=== PATIENT | female | born 1945 | race Caucasian/White ===

== ENCOUNTER 2020-02-26 21:04 | Inpatient (IN) | payer MEDICARE, SELFPAY ==
[2020-02-26 21:00] VITALS: BP 172/62; BP 191/83; PULSE 70; RESP 18; TEMP 36.6; O2SAT 95; O2SAT 98; BMI 32.9
--- NOTE | 2020-02-26 21:11 | CT_ITS ---
EXAMINATION: CT ANGIOGRAM NECK WITH CONTRAST CT ANGIOGRAM BRAIN WITH CONTRAST CLINICAL INFORMATION: Left mouth droop. COMPARISON: Head CT performed the same day. TECHNIQUE: Test bolus sequences followed by intravenous administration 70 mL of Omnipaque 350. Helical imaging was performed in the axial plane from the thoracic inlet to the skull vertex. Delayed postcontrast imaging of the head was also performed. The data was processed at the cat scan technologist workstation for generation of MIP sequences. Angled MIPs and volume rendered reformatted images were also generated at an offline 3D workstation under concurrent supervision. Stenoses are assessed in accordance with NASCET criteria unless otherwise indicated. This CT examination was performed using dose optimization techniques as appropriate, variously including the following: *Automated exposure control *Adjustment of mA and/or kV according to patient size (this includes techniques or standardized protocols for targeted exams where dose is matched to indication/reason for exam; i.e. extremities or head) *Use of iterative reconstruction technique FINDINGS: BRAIN: [There is mild chronic microangiopathy. There is no intracranial hemorrhage, hydrocephalus, extra-axial surface collection, midline shift, or other herniation pattern. Ortiz to white matter differentiation is diffusely maintained without evidence of an evolved acute territorial infarct. The basilar cisterns are preserved. No significant soft tissue abnormality. No acute osseous abnormality. The paranasal sinuses and the mastoid air cells are well aerated.] CERVICAL SOFT TISSUES AND LUNG APICES: [There is multilevel cervical spondylosis. Imaged upper lungs are clear. No significant soft tissue findings within the neck. NECK CTA: [There is extensive atherosclerotic calcification throughout the aortic arch resulting in a moderate stenosis of the left subclavian artery origin. The left vertebral artery arises from aortic arch. The vertebral arteries are codominant and remain widely patent throughout their cervical course. Right common carotid arteries widely patent. There is atherosclerotic calcification of the right carotid bifurcation without significant stenosis. There is extensive lipid rich atherosclerotic plaque involving the left carotid bulb resulting in a severe greater than 90% stenosis of the proximal left cervical ICA, distal to which the vessel is decreased in caliber compared to the right ICA there does remain patent. BRAIN CTA: One of the distal left MCA sylvian branches is partially occluded. There are no proximal large vessel occlusions and there are no right-sided intracranial arterial occlusions to explain left-sided neurologic deficit. No aneurysm. Timing of the contrast bolus allows assessment of the major dural venous sinuses, which all opacify normally] CT/CT angio head neck stroke IMPRESSION: No acute intracranial findings. There is extensive lipid rich atherosclerotic plaque involving the left carotid bulb resulting in a severe greater than 90% stenosis of the proximal left cervical ICA, distal to which the vessel is decreased in caliber compared to the right ICA there does remain patent. One of the distal left MCA sylvian branches is partially occluded and reconstitutes more distally. There are no proximal large vessel occlusions and there are no right-sided intracranial arterial occlusions to explain left-sided neurologic deficit. Atherosclerotic disease results in a moderate stenosis of the left subclavian artery origin. Findings discussed with Dr. Armas at 9:38 PM on 02/26/2020.
--- NOTE | 2020-02-26 21:11 | CT_ITS ---
EXAMINATION: CT HEAD WITHOUT CONTRAST (STROKE PROTOCOL) CLINICAL INFORMATION: Stroke protocol. . Slurred speech. Drooping mouth COMPARISON: None TECHNIQUE: Contiguous axial imaging was performed from the skull base to vertex without intravenous administration of contrast. This CT examination was performed using dose optimization techniques as appropriate, variously including the following: *Automated exposure control *Adjustment of mA and/or kV according to patient size (this includes techniques or standardized protocols for targeted exams where dose is matched to indication/reason for exam; i.e. extremities or head) *Use of iterative reconstruction technique DLP: 755 mGy-cm FINDINGS: There is no intracranial hemorrhage, hematoma, or extra-axial fluid collection. The ventricles are normal in size. There is no hydrocephalus, edema, or mass effect. The patricia-white matter differentiation appears symmetric. There is no acute infarct or mass lesion. There is age-appropriate atrophy with prominence of the ventricles and the sulci and hypodensity of the periventricular white matter due to chronic small vessel ischemic disease. There are vascular calcifications of the internal carotid arteries bilaterally. No osseous abnormality. The visualized sinuses and middle ears and mastoid air cells show no significant mucosal thickening. There are no air-fluid levels. CT/CT head for stroke IMPRESSION: No acute intracranial pathology. This critical result was discussed with Dr. Armas 02/26/2020, 9:30 PM. It was ascertained that the content and urgency of the report was understood at the time of direct communication.
--- NOTE | 2020-02-26 21:12 | ECG_ITS ---
Test Reason : [facility] STROKE Blood Pressure : / mmHG Vent. 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
--- NOTE | 2020-02-26 21:17 | ED_ITS ---
HPI - General Adult General Chief complaint: Stroke Stated complaint: STROKE ALERT,LKWT 1 HOUR,R FACE DROOP,SPEECH OFF Time Seen by Provider: 02/26/20 21:10 Source: patient Mode of arrival: EMS Limitations: no limitations History of Present Illness HPI narrative: patient comes to the emergency room after having an episode of trouble speaking for 20 minutes and word-finding difficulty. Patient states around 8-8:15pm patient noticed that she had trouble speaking. It was very sudden. Lasted for approximately 20 minutes. It self-resolved. Patient called her son and her son called EMS. Per EMS, patient had trouble difficulty finding words and a thick speech , left-sided mouth drooping, no other neurological deficits. On arrival to the emergency room, most of her symptoms had except the left-sided mouth droop. MD complaint: TIA/ stroke Related Data Home Medications Medication Instructions Recorded Confirmed amlodipine 1 tab PO DAILY 02/26/20 02/26/20 losartan 1 tab PO DAILY 02/26/20 02/26/20 metoprolol tartrate 100 mg PO BID 02/26/20 02/26/20 Allergies Allergy/AdvReac Type Severity Reaction Status Date / Time amoxicillin Allergy Mild RASH Verified 02/26/20 21:35 Review of Systems Review of Systems: Constitutional : No Weight loss, No Fever, No Chills, No Night Sweats, No Fatigue, No Malaise ENT/Mouth : No Hearing loss, No Ear Pain, No Nasal Congestion, No Sinus Pain, No Hoarseness, No sore throat, No Rhinorrhea, No Swallowing Difficulty Eyes: No Eye Pain, No Swelling, No Redness, No Foreign Body, No Discharge, No Vision Changes Cardiovascular : No Chest Pain, No SOB, No Dyspnea on Exertion, No Orthopnea, No Edema, No Palpitations Respiratory : No Cough, No Sputum, No Wheezing, No Smoke Exposure, No Dyspnea Gastrointestinal : No Nausea, No Vomiting, No Diarrhea, No Constipation, No abdominal Pain, No Hematochezia, No Melena Genitourinary : no irregular bleeding, No Dysuria, No Urinary Frequency, No Hematuria, No Urinary Incontinence, No Urgency, No Flank Pain, No Urinary Flow Changes, No Hesitancy Musculoskeletal : No joint pain, No Myalgias, No Joint Swelling Skin : No Skin Lesions, No rash Neuro : No Weakness, No Numbness, patient complaining of slurry speech now, before patient had aphasia and dysarthria, left-sided mouth droop Psych : No Anxiety/Panic, No Depression, No SI/HI/AH/VH, No Social Issues, Heme/Lymph: No Bruising, No Bleeding,No Lymphadenopathy Endocrine : No Polyuria, No Polydipsia, No Temperature Intolerance PMFSH Past Medical History Medical History (Updated 02/26/20 @ 23:19 by Chase Juárez MD) Diabetes Hyperlipidemia Hypertension Surgical History Hx of dilation and curettage Hx of removal of cyst Social History Social History Alcohol intake: never Smoking Status: Current every day smoker Smoked in Last 30 Days: Yes Use of substances other than those prescribed or required for medical reasons: No Advance Directives: No Advance Directives Information Provided: Yes Physical Exam Vital Signs: Vital Signs: Last Vital Signs Temp 97.9 F 02/26/20 21:00 Pulse 61 02/26/20 23:50 Resp 18 02/26/20 23:50 BP 153/39 H 02/26/20 23:50 Pulse Ox 95 02/26/20 23:50 Body Mass Index 32.9 Appearance: Alert. Oriented X3. No acute distress. Eyes: Pupils equal, round and reactive to light. ENT: Pharynx normal. Neck: Normal inspection. Neck supple. No lymph nodes noted. No crepitus CVS: Normal heart rate and rhythm. Pulses normal. Normal S1 and S2 Respiratory: No respiratory distress. Breath sounds normal. No Wheezing. No rales Abdomen: Soft and nontender. No rigidity. No distention. good BS x4 Skin: Skin warm and dry. Normal skin color. Normal skin turgor. Extremities: No lower extremity edema. No lower extremity edema. No Lacerations. No Rash Neuro: Oriented X 3. No motor deficit. No sensory deficit. Moving all extermities. on arrival patient had mild left-sided mouth droop which self resolved now. No slurry speech, no aphasia. On arrival in [facility] score was 1, point given for mild left-sided mouth droop, at this time, 22:00, all symptoms have resolved. NIH Stroke Scale Level of Consciousness: Alert Level of Consciousness Questions: Answers both questions correctly Level of Consciousness Commands: Performs both tasks correctly Best Gaze: Normal Visual: No visual loss Facial Palsy: Minor paralyis Motor Arm (Right): No drift Motor Arm (Left): No drift Motor Leg (Right): No drift Motor Leg (Left): No drift Limb Ataxia: Absent Sensory: Normal Best Language: No aphasia Dysarthia: Normal Extinction and Inattention: No abnormality Score: 1 Course Course Course Narrative: patient's symptoms resolved, no longer having slurry speech, no aphasia, left-sided mouth droop resolved. I discussed the CT scan with our radiologist from [facility], CT scan within normal limits, CTA showed that all intracranial vessels are open, the left carotid artery has 90% stenosis. I discussed the patient and the CT findings with Dr. Yun, recommendations are not to give tPA, patient will likely need a vascular surgery consult to address the carotid artery stenosis Medical Decision Making Lab Data Result diagrams: 02/26/20 21:55 02/26/20 21:55 Labs: Lab Results 02/26/20 02/26/20 02/26/20 Range/Units 21:18 21:29 21:55 WBC 8.8 (4.8-10.8) X10*3/uL RBC 4.77 (4.20-5.50) X10*6/uL Hgb 15.4 (12.0-16.0) g/dl Hct 46.5 (37-47) % MCV 97.5 (80-98) fL MCH 32.3 (27.0-33.0) pg MCHC 33.1 (31.0-35.0) g/dl RDW 13.0 (11.0-16.0) % Plt Count 212 (160-400) X10*3/uL MPV 10.8 (9.4-12.3) fL Immature Gran % (Auto) 0.7 H (0.0-0.4) % Neut % (Auto) 61.3 (45-73) % Lymph % (Auto) 26.8 (20-40) % [place] % (Auto) 8.3 (2-11) % Eos % (Auto) 2.2 (0-4) % Baso % (Auto) 0.7 (0-2) % Lymph # (Auto) 2.4 (1.2-4.9) X10*3/uL [place] # (Auto) 0.7 (0.1-1.2) X10*3/uL Eos # (Auto) 0.2 (0.0-0.4) X10*3/uL Baso # (Auto) 0.1 (0.0-0.2) X10*3/uL Abs Immat Gran (auto) 0.06 H (0.00-0.03) X10*3/uL Absolute Neuts (auto) 5.4 (2.0-8.3) X10*3/uL Absolute Nucleated RBC 0.000 (0.0-0.012) X10*3/uL Nucleated RBC % (auto) 0.0 (0.0-0.2) /100WBC PT (10.8-13.0) SEC Whole Blood PT 11.6 (11.1-13.5) sec INR (0.9-1.1) Whole Blood INR 1.0 (0.9-1.1) APTT (24.1-38.0) SEC Sodium (135-145) mmol/L Potassium (3.3-5.1) mmol/l Chloride (96-108) mmol/L Carbon Dioxide (22-29) mmol/L Anion Gap (12-20) BUN (9-16) mg/dL Creatinine (0.5-1.4) mg/dL Estim Creat Clear Calc Estimated GFR POC Glucose 189 H (60-115) mg/dL Random Glucose (60-115) mg/dL Calcium (8.4-10.2) mg/dL Total Creatine Kinase (26-140) U/L Troponin I High Sens (<3.5-17.0) ng/L COVID-19 ([facility]) (Negative) COVID-19 Clin Com 02/26/20 02/26/20 02/26/20 Range/Units 21:55 21:55 21:55 WBC (4.8-10.8) X10*3/uL RBC (4.20-5.50) X10*6/uL Hgb (12.0-16.0) g/dl Hct (37-47) % MCV (80-98) fL MCH (27.0-33.0) pg MCHC (31.0-35.0) g/dl RDW (11.0-16.0) % Plt Count (160-400) X10*3/uL MPV (9.4-12.3) fL Immature Gran % (Auto) (0.0-0.4) % Neut % (Auto) (45-73) % Lymph % (Auto) (20-40) % [place] % (Auto) (2-11) % Eos % (Auto) (0-4) % Baso % (Auto) (0-2) % Lymph # (Auto) (1.2-4.9) X10*3/uL [place] # (Auto) (0.1-1.2) X10*3/uL Eos # (Auto) (0.0-0.4) X10*3/uL Baso # (Auto) (0.0-0.2) X10*3/uL Abs Immat Gran (auto) (0.00-0.03) X10*3/uL Absolute Neuts (auto) (2.0-8.3) X10*3/uL Absolute Nucleated RBC (0.0-0.012) X10*3/uL Nucleated RBC % (auto) (0.0-0.2) /100WBC PT 10.5 L (10.8-13.0) SEC Whole Blood PT (11.1-13.5) sec INR 0.9 (0.9-1.1) Whole Blood INR (0.9-1.1) APTT 34.5 (24.1-38.0) SEC Sodium 138 (135-145) mmol/L Potassium 4.3 (3.3-5.1) mmol/l Chloride 101 (96-108) mmol/L Carbon Dioxide 25 (22-29) mmol/L Anion Gap 16 (12-20) BUN 21 H (9-16) mg/dL Creatinine 1.21 (0.5-1.4) mg/dL Estim Creat Clear Calc 48.1 Estimated GFR 44 POC Glucose (60-115) mg/dL Random Glucose 201 H (60-115) mg/dL Calcium 9.3 (8.4-10.2) mg/dL Total Creatine Kinase 111 (26-140) U/L Troponin I High Sens < 3.5 (<3.5-17.0) ng/L COVID-19 ([facility]) (Negative) COVID-19 Clin Com 02/26/20 Range/Units 22:38 WBC (4.8-10.8) X10*3/uL RBC (4.20-5.50) X10*6/uL Hgb (12.0-16.0) g/dl Hct (37-47) % MCV (80-98) fL MCH (27.0-33.0) pg MCHC (31.0-35.0) g/dl RDW (11.0-16.0) % Plt Count (160-400) X10*3/uL MPV (9.4-12.3) fL Immature Gran % (Auto) (0.0-0.4) % Neut % (Auto) (45-73) % Lymph % (Auto) (20-40) % [place] % (Auto) (2-11) % Eos % (Auto) (0-4) % Baso % (Auto) (0-2) % Lymph # (Auto) (1.2-4.9) X10*3/uL [place] # (Auto) (0.1-1.2) X10*3/uL Eos # (Auto) (0.0-0.4) X10*3/uL Baso # (Auto) (0.0-0.2) X10*3/uL Abs Immat Gran (auto) (0.00-0.03) X10*3/uL Absolute Neuts (auto) (2.0-8.3) X10*3/uL Absolute Nucleated RBC (0.0-0.012) X10*3/uL Nucleated RBC % (auto) (0.0-0.2) /100WBC PT (10.8-13.0) SEC Whole Blood PT (11.1-13.5) sec INR (0.9-1.1) Whole Blood INR (0.9-1.1) APTT (24.1-38.0) SEC Sodium (135-145) mmol/L Potassium (3.3-5.1) mmol/l Chloride (96-108) mmol/L Carbon Dioxide (22-29) mmol/L Anion Gap (12-20) BUN (9-16) mg/dL Creatinine (0.5-1.4) mg/dL Estim Creat Clear Calc Estimated GFR POC Glucose (60-115) mg/dL Random Glucose (60-115) mg/dL Calcium (8.4-10.2) mg/dL Total Creatine Kinase (26-140) U/L Troponin I High Sens (<3.5-17.0) ng/L COVID-19 ([facility]) Negative (Negative) COVID-19 Clin Com See Note Imaging Data CT scan - head: Radiologist's impression: There is no intracranial hemorrhage, hematoma, or extra-axial fluid collection. The ventricles are normal in size. There is no hydrocephalus, edema, or mass effect. The ortiz-white matter differentiation appears symmetric. There is no acute infarct or mass lesion. There is age-appropriate atrophy with prominence of the ventricles and the sulci and hypodensity of the periventricular white matter due to chronic small vessel ischemic disease. There are vascular calcifications of the internal carotid arteries bilaterally. No osseous abnormality. The visualized sinuses and middle ears and mastoid air cells show no significant mucosal thickening. There are no air-fluid levels. CT/CT head for stroke IMPRESSION: No acute intracranial pathology. CTA head: Radiologist's impression: BRAIN: [There is mild chronic microangiopathy. There is no intracranial hemorrhage, hydrocephalus, extra-axial surface collection, midline shift, or other herniation pattern. Ortiz to white matter differentiation is diffusely maintained without evidence of an evolved acute territorial infarct. The basilar cisterns are preserved. No significant soft tissue abnormality. No acute osseous abnormality. The paranasal sinuses and the mastoid air cells are well aerated.] CERVICAL SOFT TISSUES AND LUNG APICES: [There is multilevel cervical spondylosis. Imaged upper lungs are clear. No significant soft tissue findings within the neck. NECK CTA: [There is extensive atherosclerotic calcification throughout the aortic arch resulting in a moderate stenosis of the left subclavian artery origin. The left vertebral artery arises from aortic arch. The vertebral arteries are codominant and remain widely patent throughout their cervical course. Right common carotid arteries widely patent. There is atherosclerotic calcification of the right carotid bifurcation without significant stenosis. There is extensive lipid rich atherosclerotic plaque involving the left carotid bulb resulting in a severe greater than 90% stenosis of the proximal left cervical ICA, distal to which the vessel is decreased in caliber compared to the right ICA there does remain patent. BRAIN CTA: One of the distal left MCA sylvian branches is partially occluded. There are no proximal large vessel occlusions and there are no right-sided intracranial arterial occlusions to explain left-sided neurologic deficit. No aneurysm. Timing of the contrast bolus allows assessment of the major dural venous sinuses, which all opacify normally] ECG Data Attestation: I personally reviewed and interpreted this ECG as follows: ( normal sinus rhythm, heart rate 67, QTC 409, no ST segment depressions or elevations, no specific wave changes in inferior leads) Discharge Plan Discharge Clinical Impression: Transient cerebral ischemia Qualifiers: Transient cerebral ischemia type: other Qualified Code(s): G45.8 - Other transient cerebral ischemic attacks and related syndromes Patient Disposition: Admitted As Inpatient
[2020-02-26 21:22] LABS: Glucose, Whole Blood 189 mg/dL (60-115)
[2020-02-26] MEDS: iohexoL 350 MG/ML 100 ML INFUS..BTL IV (21:31)
[2020-02-26 21:33] LABS: Prothrombin Time Whole Bld POC 11.6 sec (11.1-13.5)
[2020-02-26 22:10] LABS: Basophils Absolute Auto 0.1 X10*3/uL (0.0-0.2); Basophils Percent Auto 0.7 % (0-2); Eosinophils Absolute Auto 0.2 X10*3/uL (0.0-0.4); Eosinophils Percent Auto 2.2 % (0-4); Hematocrit 46.5 % (37-47); Hemoglobin 15.4 g/dl (12.0-16.0); Imm Gran Abs Auto 0.06 X10*3/uL (0.00-0.03); Imm Gran Pct Auto 0.7 % (0.0-0.4); Lymphocytes Absolute Auto 2.4 X10*3/uL (1.2-4.9); Lymphocytes Percent Auto 26.8 % (20-40); Mean Corpuscular HGB Conc 33.1 g/dl (31.0-35.0); Mean Corpuscular Hemoglobin 32.3 pg (27.0-33.0); Mean Corpuscular Volume 97.5 fL (80-98); Mean Platelet Volume 10.8 fL (9.4-12.3); Monocytes Absolute Auto 0.7 X10*3/uL (0.1-1.2); Monocytes Percent Auto 8.3 % (2-11); Neutrophils Absolute Auto 5.4 X10*3/uL (2.0-8.3); Neutrophils Percent Auto 61.3 % (45-73); Platelet Count 212 X10*3/uL (160-400); Red Blood Count 4.77 X10*6/uL (4.20-5.50); White Blood Count 8.8 X10*3/uL (4.8-10.8)
[2020-02-26 22:11] LABS: MANUAL DIFF FLAG NO
--- NOTE | 2020-02-26 22:18 | MHC.STROKE ---
2050 [facility] EMS PRE-NOTIFIED FOR STROKE ALERT ONSET AT 1999 LEFT DROOP AND WORD FINDING. ARRIVED 2103, STAT CT HEAD AND CTA HEAD/NECK. NO BLEED, CTA WITH 90% STENOSIS LEFT CAROTID REFER TO DETAILED REPORT. DR AUSTIN NOTIFIED. NIHSS = 1. HOLD ON TPA, VASCULAR CONSULT PER DR CASTILLO'S NOTE. SWALLOW SCREEN, CLOSE NEURO-MONITORING RETURN OF SIMILAR STROKE SYMPTOMS, ANTIPLATELET AGENT.
[2020-02-26 22:19] LABS: INTERNATIONAL NORM RATIO 0.9 (0.9-1.1); Prothrombin Time 10.5 SEC (10.8-13.0)
[2020-02-26 22:20] VITALS: BP 145/59; PULSE 69; RESP 16; O2SAT 95
[2020-02-26 22:22] LABS: Partial Thromboplastin Time 34.5 SEC (24.1-38.0)
[2020-02-26 22:23] LABS: Stroke Lab Use COMPLETE
[2020-02-26] MEDS: Aspirin Enteric Coated 325 MG TABLET.DR PO (22:36)
[2020-02-26 22:40] LABS: Anion Gap 16 (12-20); Blood Urea Nitrogen 21 mg/dL (9-16); Calcium 9.3 mg/dL (8.4-10.2); Carbon Dioxide 25 mmol/L (22-29); Chloride 101 mmol/L (96-108); Creatinine Clr Calc Pharmacy 48.1; Estimated Glomerular Filt Rate 44; Glucose Random 201 mg/dL (60-115); Potassium 4.3 mmol/l (3.3-5.1); Sodium 138 mmol/L (135-145)
[2020-02-26 22:42] LABS: Troponin-I High Sensitivity < 3.5 ng/L (<3.5-17.0)
--- NOTE | 2020-02-26 23:10 | PM.IMHP ---
History of Present Illness Date of Service: 02/26/20 Chief Complaint: Unable to speak 74 y/o female with PMHX of HTN and HLP who presented from home due to inability to speak. Per history provided by the patient today around 6 pm, while at home, had an episode where she couldnt speak at all . This symptoms lasted for about 20 minutes and then patient regained the capacity successfully. Patient denies any previous symptoms like this. Denies any chest pain, SOB, nausea, vomiting, weakness or numbness. On presentation to the ED patient is hypertensive 170/60 mmHg, HR of 70 bpm, no evidence of fever. Blood work unremarkable. CT head negative for intracranial pathology but CTA head/neck positive for left ICA 90% stenosis, left MCA and Left subclavian atherosclerosis disease. Case was discussed per ED with Dr Garcia who recommends patient to be admitted for monitoring and Vascular Surgeon to be consulted in the am for possible endarterectomy. Decision for admission given. Patient was seen and examined at the bedside, laying down in bed in no acute distress. ROS as above otherwise negative. Physical exam unremarkable. PMHX: HTN, HLP PSX: none Toxic habits: no hx of alcohol abuse, smoking or IVDA Review of Systems Constitutional: Constitutional: Reports as per [facility] Medical History Diabetes Hyperlipidemia Hypertension Functional capacity: independent ambulation Surgical History Hx of dilation and curettage Hx of removal of cyst Social History Alcohol intake: never Smoking Status: Current every day smoker Smoked in Last 30 Days: Yes Use of substances other than those prescribed or required for medical reasons: No Advance Directives: No Advance Directives Information Provided: Yes Meds Allergies Allergy/AdvReac Type Severity Reaction Status Date / Time amoxicillin Allergy Mild RASH Verified 02/26/20 21:35 Home Medications Medication Instructions Recorded Confirmed Type amlodipine 1 tab PO DAILY 02/26/20 02/26/20 History losartan 1 tab PO DAILY 02/26/20 02/26/20 History metoprolol tartrate 100 mg PO BID 02/26/20 02/26/20 History Physical Exam Vital Signs and Narrative: Vital Signs: Last Vital Signs Temp 97.9 F 02/26/20 21:00 Pulse 69 02/26/20 22:20 Resp 16 02/26/20 22:20 BP 145/59 H 02/26/20 22:20 Pulse Ox 95 02/26/20 22:20 Body Mass Index 32.9 Const: General: cooperative, comfortable and no acute distress Orientation/consciousness: oriented to person, oriented to place and oriented to time HENMT: Head: Yes normal to inspection Eyes: General: appearance normal, both eyes and all related structures Neck: Yes normal visual inspection Chest: Chest palpation & inspection: normal inspection of the chest Resp: Effort & Inspection: normal respiratory effort Auscultation: clear to auscultation bilaterally Cardio: Jugular venous distension: no JVD Rate: regular rate Rhythm: regular rhythm Heart sounds: S1 normal heart sound present and S2 normal heart sound present GI: Inspection: Yes normal to inspection Skin: General skin exam: no rashes or lesions noted Neuro: General: oriented to person, oriented to place and oriented to time Cognition (Neuro): normal cognition Gait exam (Neuro): Normal gait present Results Labs CBC and Chem 7: 02/26/20 21:55 02/26/20 21:55 Labs: Laboratory Results - last 24 hr 02/26/20 02/26/20 02/26/20 21:18 21:29 21:55 MCV 97.5 MCH 32.3 MCHC 33.1 RDW 13.0 Plt Count 212 MPV 10.8 Immature Gran % (Auto) 0.7 H Neut % (Auto) 61.3 Lymph % (Auto) 26.8 [place] % (Auto) 8.3 Eos % (Auto) 2.2 Baso % (Auto) 0.7 Lymph # (Auto) 2.4 [place] # (Auto) 0.7 Eos # (Auto) 0.2 Baso # (Auto) 0.1 Abs Immat Gran (auto) 0.06 H Absolute Neuts (auto) 5.4 Absolute Nucleated RBC 0.000 Nucleated RBC % (auto) 0.0 PT Whole Blood PT 11.6 INR Whole Blood INR 1.0 APTT Anion Gap Estim Creat Clear Calc Estimated GFR POC Glucose 189 H Random Glucose Calcium Total Creatine Kinase Troponin I High Sens 02/26/20 02/26/20 02/26/20 21:55 21:55 21:55 MCV MCH MCHC RDW Plt Count MPV Immature Gran % (Auto) Neut % (Auto) Lymph % (Auto) [place] % (Auto) Eos % (Auto) Baso % (Auto) Lymph # (Auto) [place] # (Auto) Eos # (Auto) Baso # (Auto) Abs Immat Gran (auto) Absolute Neuts (auto) Absolute Nucleated RBC Nucleated RBC % (auto) PT 10.5 L Whole Blood PT INR 0.9 Whole Blood INR APTT 34.5 Anion Gap 16 Estim Creat Clear Calc 48.1 Estimated GFR 44 POC Glucose Random Glucose 201 H Calcium 9.3 Total Creatine Kinase 111 Troponin I High Sens < 3.5 Imaging Radiologist's Impressions: Impressions Head CT 02/26/20 21:11 IMPRESSION: No acute intracranial pathology. This critical result was discussed with Dr. Armas 02/26/2020, 9:30 PM. It was ascertained that the content and urgency of the report was understood at the time of direct communication. Head/Neck CTA 02/26/20 21:11 IMPRESSION: No acute intracranial findings. There is extensive lipid rich atherosclerotic plaque involving the left carotid bulb resulting in a severe greater than 90% stenosis of the proximal left cervical ICA, distal to which the vessel is decreased in caliber compared to the right ICA there does remain patent. One of the distal left MCA sylvian branches is partially occluded and reconstitutes more distally. There are no proximal large vessel occlusions and there are no right-sided intracranial arterial occlusions to explain left-sided neurologic deficit. Atherosclerotic disease results in a moderate stenosis of the left subclavian artery origin. Findings discussed with Dr. Armas at 9:38 PM on 02/26/2020. Assessment and Plan (1) Transient cerebral ischemia: Qualifiers: Transient cerebral ischemia type: other Qualified Code(s): G45.8 - Other transient cerebral ischemic attacks and related syndromes Status: Acute Neuro checks IMC / lunchroom monitor Follow up 2D echo start with aspirin 81 mg tablet daily start with atorvastatin 40 mg tablet HS Neurology consult in the am Vascular surgery in the am (2) Broca's aphasia: Status: Acute as above (3) Hypertension: Status: Acute continue with home BP meds (4) Hyperlipidemia: Status: Inactive as above
[2020-02-26 23:13] LABS: COVID-19 Test Negative (Negative); IDNOW Serial# 9DD0AD1C
[2020-02-26 23:50] VITALS: BP 153/39; PULSE 61; RESP 18; O2SAT 95
[2020-02-26] MEDS: Heparin Sodium,Porcine 5,000 UNIT/ML VIAL 5000 UNIT SUBCUT (23:52)
--- NOTE | 2020-02-26 23:57 | PC.NURSE ---
CALLED TO FLOOR TO GIVE REPORT. NURSE WILL CALL BACK
[2020-02-27] VITALS (9 sets, daily range): BP systolic 140–166; BP diastolic 47–71; PULSE 52–68; RESP 17–20; TEMP 35.5–36.9; O2SAT 91–97
--- NOTE | 2020-02-27 00:15 | PC.NURSE ---
NURSE TO NURSE GIVEN TO CLAY HOOPER ON IMC.
[2020-02-27 02:06] LABS: Glucose, Whole Blood 257 mg/dL (60-115)
[2020-02-27 06:32] LABS: MANUAL DIFF FLAG NO
[2020-02-27 07:04] LABS: Basophils Absolute Auto 0.1 X10*3/uL (0.0-0.2); Basophils Percent Auto 0.7 % (0-2); Eosinophils Absolute Auto 0.1 X10*3/uL (0.0-0.4); Eosinophils Percent Auto 1.6 % (0-4); Hematocrit 45.7 % (37-47); Hemoglobin 15.1 g/dl (12.0-16.0); Imm Gran Abs Auto 0.03 X10*3/uL (0.00-0.03); Imm Gran Pct Auto 0.3 % (0.0-0.4); Lymphocytes Absolute Auto 2.8 X10*3/uL (1.2-4.9); Lymphocytes Percent Auto 32.2 % (20-40); Mean Corpuscular Hemoglobin 32.2 pg (27.0-33.0); Mean Corpuscular Volume 97.4 fL (80-98); Mean Platelet Volume 11.2 fL (9.4-12.3); Monocytes Absolute Auto 0.7 X10*3/uL (0.1-1.2); Monocytes Percent Auto 7.8 % (2-11); Neutrophils Absolute Auto 5.1 X10*3/uL (2.0-8.3); Neutrophils Percent Auto 57.4 % (45-73); Platelet Count 206 X10*3/uL (160-400); Red Blood Count 4.69 X10*6/uL (4.20-5.50); White Blood Count 8.8 X10*3/uL (4.8-10.8)
[2020-02-27 07:21] LABS: Glucose, Whole Blood 124 mg/dL (60-115)
[2020-02-27 07:40] LABS: Anion Gap 15 (12-20); Blood Urea Nitrogen 17 mg/dL (9-16); Carbon Dioxide 22 mmol/L (22-29); Chloride 107 mmol/L (96-108); Cholesterol 304 mg/dL; Creatinine Clr Calc Pharmacy 64.7; Estimated Glomerular Filt Rate > 60; Glucose Random 123 mg/dL (60-115); HDL Cholesterol 35 mg/dL; LDL Cholesterol Calculated 194 mg/dl; Potassium 4.4 mmol/l (3.3-5.1); Sodium 140 mmol/L (135-145); Triglycerides 376 mg/dL
[2020-02-27] MEDS: Heparin Sodium,Porcine 5,000 UNIT/ML VIAL 5000 UNIT SUBCUT ×2 (07:40→14:37)
[2020-02-27 08:09] LABS: Calcium 8.8 mg/dL (8.4-10.2)
[2020-02-27] MEDS: Aspirin Enteric Coated 81 MG TABLET.DR PO (08:46)
[2020-02-27 12:17] LABS: Glucose, Whole Blood 158 mg/dL (60-115)
[2020-02-27 12:57] LABS: Estimated Average Glucose 183 mg/dL
--- NOTE | 2020-02-27 14:05 | PM.NEUROCN ---
History of Present Illness Data of Consult Service Date: 02/27/20 Primary Care Provider: Unknown Physician HPI Reason for consult: Sudden loss of inability to speak lasting 20 minutes This is a 74-year-old woman with a history of hypertension, hyperlipidemia and diet-controlled diabetes who came in with sudden onset of inability to speak where she could not get any words out initially, had difficulty finding words and slurring. The symptoms gradually cleared about 20 minutes later and since then she has been fine. She had no visual disturbance dizziness headache or lateralized weakness or numbness. There is no previous history of stroke or TIA. She has several stroke risk factors. She has hyperlipidemia but does not take any medication for it because it cause some side effects in the past. She does not take aspirin at home. She controls her diabetes with diet and her last A1c was 7. Her blood pressure requires 3 medications for control. Review of Systems Eyes: Eyes: Reports no additional eye complaints ENT: Reports system reviewed and no additional complaints, except as documented and Reports Normal hearing present Cardiovascular: Cardiovascular: Reports no additional cardiovascular complaints Respiratory: Respiratory: Reports no additional respiratory complaints Gastrointestinal: Gastrointestinal: Reports no additional gastrointestinal complaints Musculoskeletal: Musculoskeletal: Reports no additional musculoskeletal complaints Integumentary/Breasts: Skin/Breast: Reports system reviewed and no additional complaints, except as docu Neurologic: Reports as per HPI and Reports Normal hearing present Psychiatric: Psychiatric: Reports as per HPI Endocrine: Endocrine: Reports no additional endocrine complaints Hematologic/Lymphatic: Hematologic/Lymphatic: Reports no additional hematologic/lymphatic complaints Allergic/Immunologic: Allergic/Immunologic: Reports no additional allergic/immunologic complaints [facility] Past Medical History Medical History (Updated 02/27/20 @ 14:09 by Abigail Yun MD) Diabetes Hyperlipidemia Hypertension Functional capacity: independent ambulation Surgical History Surgical History Hx of dilation and curettage Hx of removal of cyst Social History Social History Household Members: Spouse Housing: House Do you presently have visiting nurse or other home services: No Alcohol intake: never Smoking Status: Current every day smoker Tobacco Type: Cigarette Years Smoked: 61 Smoked in Last 30 Days: Yes Patient Interested in Nicotine Replacement: No Patient Given Instructions on How to Stop Smoking: No Second Hand Smoke Exposure: Yes Use of substances other than those prescribed or required for medical reasons: No Currently Displaying Signs/Symptoms of Drug Intoxication Withdrawal: No Have you been hit, kicked, punched, or otherwise hurt by someone within the past year? If so, by whom?: No Do you feel safe in your current relationship?: Yes Is there a partner from a previous relationship who is making you feel unsafe now?: No Are you made to feel afraid or neglected: No Advance Directives: No Advance Directives Information Provided: Yes Do you have thoughts of harming others: None Do you have a plan to hurt others: No Plan Recently lost weight without trying: No Meds Allergies Allergy/AdvReac Type Severity Reaction Status Date / Time amoxicillin Allergy Mild RASH Verified 02/26/20 21:35 Home Medications Medication Instructions Recorded Confirmed Type amlodipine 10 mg PO DAILY 02/26/20 02/27/20 History losartan 50 mg PO DAILY 02/26/20 02/27/20 History metoprolol tartrate 100 mg PO BID 02/26/20 02/26/20 History Physical Exam Vital Signs: Vital Signs: Last Vital Signs Temp 97.9 F 02/27/20 11:28 Pulse 55 02/27/20 11:28 Resp 17 02/27/20 11:28 BP 149/65 H 02/27/20 11:28 Pulse Ox 95 02/27/20 11:28 Body Mass Index 32.9 Const: General: cooperative, comfortable, no acute distress, well developed, alert and awake Nutritional Appearance: well nourished Orientation/consciousness: oriented to person, oriented to place and oriented to time Limitations: no limitations HENMT: Head: Yes normal to inspection, Yes normocephalic and Yes atraumatic Ears: hearing grossly normal bilaterally General nose exam: Normal external nose present Face and sinus: Yes normal facial exam Mouth: Normal oral and palatal mucosa present Eyes: General: appearance normal, both eyes and all related structures Visual Zuniga: normal visual zuniga by confrontation Alignment and Position: alignment normal Periorbital: periorbital findings normal Eyelids: Yes eyelids normal Conjunctivae: conjunctivae normal Sclerae: sclerae normal Corneas: corneas normal Pupils: Equal, round and reactive pupils present and Pupil accommodation reflex normal EOM: EOMs intact bilaterally Direct Ophthalmoscopy: normal light reflex Neck: Neck: Yes normal visual inspection, Yes full ROM and Yes no meningeal signs Thyroid: Thyroid normal Carotids: normal carotid upstroke and bounding pulses Chest: Chest palpation & inspection: normal inspection of the chest Resp: Effort & Inspection: normal respiratory effort Auscultation: clear to auscultation bilaterally Cardio: Rate: regular rate Rhythm: regular rhythm Heart sounds: S1 normal heart sound present and S2 normal heart sound present Peripheral pulses: Peripheral pulses 2+ throughout GI: Inspection: Yes normal to inspection Percussion: Yes normal to percussion Auscultation: normal bowel sounds Rectal Exam - Female: deferred Back/Spine/Pelvis: Cervical Spine: normal cervical lordosis and cervical ROM normal Thoracic/Lumbar Spine: thoracic and lumbar spine normal to inspection Skin: General skin exam: no rashes or lesions noted Neuro: General: oriented to person, oriented to place, oriented to time, gait normal, tone normal, moves all extremities, Normal light touch and pain sensation, no meningeal signs, no focal motor deficits, CN's II-XI intact bilaterally, normal sensation to monofilament and deep tendon reflexes 2+ bilaterally Cranial nerves: Yes CN's II-XII intact bilaterally, Yes Equal, round and reactive pupils present, Yes Bilaterally intact EOM present, Yes Nystagmus not present, Yes Normal facial strength present, Yes Midline tongue present, Yes Normal gag reflex present, Yes Symmetric palate elevation present, Yes Normal hearing present and Yes Ability to bilaterally rotate head present Cognition (Neuro): normal cognition Speech: Other speech findings present (Neuro) Gait exam (Neuro): Normal gait present Motor exam (neuro): 5/5 motor strength present throughout, Pronator motor function not present, no tremor noted, no asterixis, Motor fasciculations not present, Normal motor muscle tone present throughout and Motor abnormalities not present Sensory Exam: Bilaterally intact graphesthesia Deep tendon reflexes (DTR's): Right triceps reflex intensity grade: 2+, Left triceps reflex intensity grade: 2+, Rt Biceps (C5, C6): 2+, Left biceps reflex intensity grade: 2+, Right brachioradialis reflex intensity grade: 2+, Left brachioradialis reflex intensity grade: 2+, Right patellar reflex intensity grade: 2+, Left patellar reflex intensity grade: 2+, Right ankle reflex intensity grade: 2+ and Left ankle reflex intensity grade: 2+ Plantar Reflex Responses: downgoing: right, left and bilateral Coordination: [id number] test normal, [id number] test normal, tandem gait normal and Romberg test negative Pupils: Normal pupillary reactivity/response: bilateral Extrem: General: Yes normal to inspection, Yes normal exam except as noted and Yes no pedal edema Psych: Appearance: grossly normal Mental Status: mental status grossly normal Speech and movement: Normal speech and movement present and Clear speech present Affect: normal affect Attitude: cooperative Thought process: Normal thought process present Results Labs CBC & Chem 7: 02/27/20 05:35 02/27/20 05:35 Labs: Short CBC 02/26/20 02/27/20 Range/Units 21:55 05:35 WBC 8.8 8.8 (4.8-10.8) X10*3/uL Hgb 15.4 15.1 (12.0-16.0) g/dl Hct 46.5 45.7 (37-47) % Plt Count 212 206 (160-400) X10*3/uL BMP 02/26/20 02/27/20 21:55 05:35 Sodium 138 140 Potassium 4.3 4.4 Chloride 101 107 Carbon Dioxide 25 22 BUN 21 H 17 H Creatinine 1.21 0.90 Calcium 9.3 8.8 Cardiac Enzymes 02/26/20 Range/Units 21:55 Total Creatine Kinase 111 (26-140) U/L Assessment and Plan (1) Broca's aphasia: Problem details: Aphasia resolved in 20 minutes Status: Acute Secondary to TIA from left internal carotid stenosis 90% (2) Transient cerebral ischemia: Qualifiers: Transient cerebral ischemia type: other Qualified Code(s): G45.8 - Other transient cerebral ischemic attacks and related syndromes Problem details: Left hemisphere TIA from 90% stenosis of left internal carotid artery Status: Acute Start aspirin 81 mg a day. Vascular surgery consultation for left carotid endarterectomy. Do not be too aggressive with blood pressure control. Avoid dropping systolic blood pressure below 140
--- NOTE | 2020-02-27 16:12 | MHC.CM.PN ---
Pt reports she lives at home wiht her and is independent with self care. Pt reports she does have a walker at home and has no services. Pt reports her PCP is [facility] in [facility]. Pt reports she has a HCP. Currently DC plan is TBD pending PT/OT. Likely home. Pt will self arrange transport
[2020-02-27 16:41] LABS: Glucose, Whole Blood 147 mg/dL (60-115)
--- NOTE | 2020-02-27 17:13 | P.PNIM_ITS ---
Subjective Subjective Date of Service: 02/27/20 Interval History: seen and examined denies any neuro deficits d/w her at length about her diagnosis which include htn, hld and diabetes -- all of which are chronic and long standing. she reports she only take bp meds but not statins or diabetic meds as she has researched them and knows the side effects. ROS General - no fevers or chills Cardiovascular - no chest pain Respiratory - no shortness of breath or cough Abdominal- no abdominal pain, nausea, vomiting, diarrhea Physical Exam Vital Signs: Vital Signs: Last Vital Signs Temp 98.1 F 02/27/20 15:24 Pulse 54 02/27/20 15:24 Resp 18 02/27/20 15:24 BP 145/66 H 02/27/20 15:24 Pulse Ox 95 02/27/20 15:24 Body Mass Index 32.9 Const: Other: General - no acute distress, appears comfortable Cardiovascular - regular rate and rhythm, S1-S2 Lungs - normal respiratory effort, clear to auscultation bilaterally, no wheezing Abdomen - soft, nontender, no rebound or guarding Extremities - no edema bilaterally Neuro - awake and alert, no focal deficits Objective Data Current Medications Generic Name Dose Route Start Last Admin Trade Name Freq PRN Reason Stop Dose Admin Aspirin 81 mg 02/27/20 09:00 02/27/20 08:46 Aspirin Enteric Coated 81 Mg Tablet. PO 81 mg DAILY [facility] Administration Atorvastatin Calcium 80 mg 02/27/20 21:00 Atorvastatin Calcium 80 Mg Tablet PO BEDTIME [facility] Heparin Sodium (Porcine) 5,000 unit 02/26/20 23:30 02/27/20 14:37 Heparin Sodium,Porcine 5,000 Unit/Ml Vial SUBCUT 5,000 unit Q8H [facility] Administration Insulin Human Lispro 0 unit 02/27/20 16:30 02/27/20 16:42 Insulin Lispro 100 Unit/Ml 3 Ml Vial SUBCUT Not Given QIDACHS [facility] Protocol Labs CBC & Chem 7: 02/27/20 05:35 02/27/20 05:35 Assessment and Plan (1) Transient cerebral ischemia: Status: Acute Assessment and Plan: This is a 74-year-old female with multiple risk factors for CVA including diabetes, hyperlipidemia, hypertension who presents to the hospital with word- finding difficulty and slurred speech which resolved on its own while in the emergency room. Her workup in the ED showed a 90% stenosis of the left internal carotid artery the likely cause of her symptoms. 1. TIA Due to left carotid stenosis, 90% Neurology input appreciated Vascular surgery consulted aspirin, statin recommended but the patient is unsure if she will take it, blood pressure control: for the time being discontinue her antihypertensives and allow blood pressure to remain over 140 per neurology recommendations, check A1c - 8. again patient does not want treatment for this. 2. HTN hold antihypertensvies allow for SBP > 140 3. HLD statin if patient will take it 4. DM sliding scale, if patient will allow doesnt want PO dm meds either Full Code DVT pptx, subcut. heparin
[2020-02-27 20:34] LABS: Glucose, Whole Blood 123 mg/dL (60-115)
[2020-02-27] MEDS: Atorvastatin Calcium 80 MG TABLET PO (20:59)
[2020-02-28] MEDS: Heparin Sodium,Porcine 5,000 UNIT/ML VIAL 5000 UNIT SUBCUT ×4 (00:44→23:34)
[2020-02-28 03:30] VITALS: BP 142/66; PULSE 53; RESP 18; TEMP 36.3; O2SAT 90
[2020-02-28 06:56] VITALS: BP 137/63; PULSE 52; RESP 19; TEMP 36.6; O2SAT 92
[2020-02-28 07:15] LABS: Glucose, Whole Blood 157 mg/dL (60-115)
[2020-02-28] MEDS: Aspirin Enteric Coated 81 MG TABLET.DR PO (08:00)
--- NOTE | 2020-02-28 09:41 | PM.EVENT ---
Event Note Date of Service: 02/28/20 Event Note: Full consult to follow. If true TIA , carotid stenosis > 90%. Must be done this admission. Plavix added.
[2020-02-28] MEDS: Clopidogrel Bisulfate 75 MG TABLET PO (10:20)
--- NOTE | 2020-02-28 10:50 | P.PNIM_ITS ---
Subjective Subjective Date of Service: 02/28/20 Interval History: seen and examined this AM no repeat neurological symptoms agreeable on statins + bp meds, wants to control her DM with diet control ROS General - no fevers or chills Cardiovascular - no chest pain Respiratory - no shortness of breath or cough Abdominal- no abdominal pain, nausea, vomiting, diarrhea Neuro -- no repeated symptoms Physical Exam Vital Signs: Vital Signs: Last Vital Signs Temp 98 F 02/28/20 06:56 Pulse 52 02/28/20 06:56 Resp 19 02/28/20 06:56 BP 137/63 02/28/20 06:56 Pulse Ox 92 02/28/20 06:56 Body Mass Index 32.9 Const: Other: General - no acute distress, appears comfortable Cardiovascular - regular rate and rhythm, S1-S2 Lungs - normal respiratory effort, clear to auscultation bilaterally, no wheezing Abdomen - soft, nontender, no rebound or guarding Extremities - no edema bilaterally Neuro - awake and alert, no focal deficits Objective Data Current Medications Generic Name Dose Route Start Last Admin Trade Name Bee PRN Reason Stop Dose Admin Aspirin 81 mg 02/27/20 09:00 02/28/20 08:00 Aspirin Enteric Coated 81 Mg Tablet. PO 81 mg DAILY [facility] Administration Atorvastatin Calcium 80 mg 02/27/20 21:00 02/27/20 20:59 Atorvastatin Calcium 80 Mg Tablet PO 80 mg BEDTIME [facility] Administration Clopidogrel Bisulfate 75 mg 02/28/20 10:05 02/28/20 10:20 Clopidogrel Bisulfate 75 Mg Tablet PO 75 mg DAILY [facility] Administration Heparin Sodium (Porcine) 5,000 unit 02/26/20 23:30 02/28/20 07:59 Heparin Sodium,Porcine 5,000 Unit/Ml Vial SUBCUT 5,000 unit Q8H [facility] Administration Insulin Human Lispro 0 unit 02/27/20 16:30 02/28/20 07:54 Insulin Lispro 100 Unit/Ml 3 Ml Vial SUBCUT Not Given QIDACHS [facility] Protocol Labs CBC & Chem 7: 02/27/20 05:35 02/27/20 05:35 Assessment and Plan (1) Transient cerebral ischemia: Status: Acute Assessment and Plan: This is a 74-year-old female with multiple risk factors for CVA including diabetes, hyperlipidemia, hypertension who presents to the hospital with word- finding difficulty and slurred speech which resolved on its own while in the emergency room. Her workup in the ED showed a 90% stenosis of the left internal carotid artery the likely cause of her symptoms. 1. TIA Due to left carotid stenosis, 90% Neurology input appreciated Vascular surgery consulted - likely plan for intervention this admission contiue asa, plavix added; continue statin; keep off BP Meds -- neurology recs to keep SBP > 140 Echo tomorrow Cardiology consult requested per vascular for pre-op eval 2. HTN hold antihypertensvies allow for SBP > 140 3. HLD lipitor 4. DM continue with POC will d/c inuslin as patient is flat out refusing to take it, wants to try diet control. also does not want any PO 5. Obesity weight loss Full Code DVT pptx, subcut. heparin
[2020-02-28 11:07] VITALS: BP 141/72; PULSE 62; RESP 18; TEMP 36.6; O2SAT 95
[2020-02-28 11:29] LABS: Glucose, Whole Blood 148 mg/dL (60-115)
[2020-02-28 15:35] VITALS: BP 175/81; PULSE 61; RESP 18; TEMP 36.6; O2SAT 95
[2020-02-28 16:23] LABS: Glucose, Whole Blood 129 mg/dL (60-115)
[2020-02-28 19:13] VITALS: BP 168/72; PULSE 67; RESP 18; TEMP 37.1; O2SAT 93
[2020-02-28] MEDS: Atorvastatin Calcium 80 MG TABLET PO (20:26)
[2020-02-28 20:47] LABS: Glucose, Whole Blood 136 mg/dL (60-115)
[2020-02-29] VITALS (7 sets, daily range): BP systolic 142–177; BP diastolic 65–79; PULSE 58–97; RESP 16–20; TEMP 36.5–37.1; O2SAT 93–96; BMI 32.9
--- NOTE | 2020-02-29 | CA_ITS ---
Acquisition Time: 2020-03-01 10:46:45 Total Exercise Time: 00:04:37 Test Indications: CAROTID STENOSIS Medications: SEE CHART Protocol: CHRIS Max HR: 139 BPM 93% of Pred: 148 BPM Max BP: 184/078 mmHG Max Work Load: 4.6 METS Exercise MIBI using Modified Chris Protocol. Total of 4 min 37 sec. METS 4.6, MHR up to 139. 93 % MAPHR. Pt was SOB at the end of the exercise, reports to be feeling dizzy. Normotensive response to exercise. EKG without any arrhythmias, no ischemic changes seen during exercise or in recovery. Lot of artifacts seen during exercise. Nuclear images to follow. Test reviewed with Dr. Stone Referred By: David Stone Overread By: Tan Proctor
--- NOTE | 2020-02-29 | MR_ITS ---
MRI OF THE BRAIN WITHOUT IV CONTRAST INDICATION: CVA. Aphasia. COMPARISON: Head CT and CTA head and neck 02/26/2020. TECHNIQUE: Multiplanar multisequence MR imaging of the brain was obtained without IV contrast. FINDINGS: Multiple small acute infarcts within the left frontal, parietal, and temporal lobes located within the left MCA territory. There is no mass effect and there is no hemorrhagic transformation. There is a small focus of susceptibility signal within the left frontal lobe on image 18 of series 6, likely a small focus of chronic hemosiderin staining. T2 signal changes within the supratentorial white matter and central main, most like a chronic microangiopathy. There is no hydrocephalus, extra-axial surface collection, or herniation. The major flow voids at the skull base are preserved. There is no intracranial hemorrhage on the gradient recalled echo acquisition. The midline structures are normal. The cerebellar tonsils are normally positioned. The cerebellum and brainstem are normal. The craniocervical junction is normal. Osseous marrow signal intensity is homogenous. The visualized soft tissues are unremarkable. MR/MR head/brain wo con IMPRESSION: - Multiple small acute infarcts within the left frontal, parietal, and temporal lobes located within the left MCA territory. There is no mass effect and there is no hemorrhagic transformation. - There is a small focus of susceptibility signal within the left frontal lobe on image 18 of series 6, likely a small focus of chronic hemosiderin staining.
--- NOTE | 2020-02-29 00:28 | CA_ITS ---
Transthoracic Echocardiogram Patient (Last, First, Middle): iDa Dong E Gender: Female Date of : 1945 Age: 74 Procedure Date: 02/29/2020 Procedure Type: Transthoracic Echocardiogram [place] [facility] [place]: 167.64 cm Weight: 92.08 kg BSA: 2.01 m2 Heart Rate: bpm BP: 149 / 68 mmHg Recreation Program Coordinator: Referring MD: KARINA Symptoms: Stroke Study Quality: Good ECG Rhythm: Sinus Conclusions: - The left ventricular systolic function is hyperdynamic. The visually estimated ejection fraction is >70%. - No obvious valvular pathology seen on this study. Findings Left Ventricle Normal left ventricular cavity size. There is moderately increased left ventricular wall thickness. The left ventricular systolic function is hyperdynamic. The visually estimated ejection fraction is >70%. There is no evidence of regional wall motion abnormalities. There is no dynamic left ventricular outflow tract obstruction. E/E prime ratio is between 8 and 15 consistent with indeterminate filling pressures. Evidence suggests grade I (mild) diastolic dysfunction. Possibly some intraventricular gradient but not clearly measured. Right Ventricle Normal right ventricular cavity size and systolic function. Atria Both atria are normal in size. Aortic Valve The aortic valve was not well visualized. The peak aortic velocity is 2.38 m/s with a calculated peak gradient of 23 mmHg. The mean gradient is 11 mmHg. The aortic valve area is 2.08 cm2. There is no aortic valve regurgitation. No significant aortic stenosis. Mitral Valve The mitral valve appears normal. There is trace mitral valve regurgitation. There is no mitral valve stenosis. Pulmonic Valve The pulmonic valve was not well visualized. Tricuspid Valve There is trace tricuspid valve regurgitation. The pulmonary artery systolic pressure is normal. Great Vessels The aortic annulus, sinuses of valsalva, and asc aorta are normal in size. Venous The inferior vena cava is normal in size and collapses greater than 50% with inspiration. Pericardium/Pleural There is no evidence of pericardial effusion. Prior Study Comparison No prior study available for comparison. Recommendations, Care & Conclusions No obvious valvular pathology seen on this study. Measurements 2D Linear Measurements IVSd: 1.42 0.6-0.9/0.6-1.0 cm LVIDd: 3.34 3.9-5.3/4.2-5.9 cm LVIDd Index: 1.66 2.4-3.2/2.2-3.1 cm/m2 LVIDs: 2.16 2.0-3.6 cm LVPWd: 1.39 0.7-1.1 cm Ao Root: 2.80 2.1-3.5 cm LA Diam: 3.50 2.7-3.8/3.0-4.0 cm LAIDs Index: 1.74 1.5-2.3 cm/m2 LV Mass: 203.16 67-162/88-224 g LV Mass Index: 101.08 43-95/49-115 g/m2 LVOT Diam: 1.90 3.0+(-)1.3 cm Mitral Valve MV VTI: 0.26 MV Pk Frankie: 1.23 MV Mn Frankie: 0.75 MV Pk Grad: 6.00 MV Mn Grad: 3.00 MV Pk E: 0.81 MV PK A: 1.34 MV Decel Time: 123.00 E/A: 0.60 E'Lateral: 10.40 E'Medial: 6.48 E/E' Med: 12.50 E/E' Lat: 7.80 PHT: 36.00 MVA PHT: 6.11 MVA Continuity: 3.62 Decel Robertson: 6.57 Aortic Valve AoV Pk Frankie: 2.38 AoV Mn Frankie: 1.54 AoV VTI: 0.46 AoV Pk Grad: 23.00 Aov Mn Grad: 11.00 AMARILIS Cont.VTI: 2.08 LVOT LVOT Pk Frankie: 1.36 LVOT Mn Frankie: 1.02 LVOT VTI: 0.33 LVOT Pk Grad: 7.00 LVOT Mn Grad: 5.00 LVOT Diam: 1.90 LVOT Area: 2.84 Diastolic Function MV Pk E: 0.81 MV Pk A: 1.34 E/A: 0.60 E'Medial: 6.48 E/E' Med: 12.50 E' Laterial: 10.40 E/E' Lat: 7.80 Tricuspid Valve TR Pk Frankie: 1.94 TR Pk Grad: 15.00 RA Press: 3.00 RVSP: 18.00 Great Vessels Aorta Ao Root-2D: 2.80 2.0-3.7 cm Pulmonary Valve PV Pk Frankie: 1.33 Peak PV Grad: 7.00 Updated in Other Vendor System with Status of Final David Stone MD electronically signed on 02/29/2020 11:50:28 AM with status of Final
[2020-02-29] MEDS: Heparin Sodium,Porcine 5,000 UNIT/ML VIAL 5000 UNIT SUBCUT ×3 (07:13→22:05)
[2020-02-29 07:42] LABS: Glucose, Whole Blood 142 mg/dL (60-115)
[2020-02-29] MEDS: Aspirin Enteric Coated 81 MG TABLET.DR PO (07:44)
[2020-02-29] MEDS: Clopidogrel Bisulfate 75 MG TABLET PO (07:44)
--- NOTE | 2020-02-29 10:00 | P.CONCA_ITS ---
History of Present Illness History of Present Illness Date of Service: 02/29/20 Consult reason: pre-op evaluation Chief complaint: STROKE ALERT/TIA Narrative: This is a cardiology consultation for preoperative evaluation for a carotid endarterectomy. Patient does not have any known cardiac issues. She denies any history of coronary disease myocardial infarction or cardiomyopathy or any other cardiac concerns. She came because of difficulty speaking. Has be en diagnosed with left internal carotid stenosis and hence potentially plan for carotid endarterectomy. From the cardiac standpoint, she states that she has never had any anginal-type symptoms or shortness of breath or other cardiac type symptoms. She is fairly active although because sciatica she does not do a lot. Within her limitations, no clear cardiac symptoms at all. She states that she does have elevated sugars but does not take anything for diabetes. On medications for hypertension. She is on statins for high cholesterol. She is a smoker. She also has a family history of cardiac disease in both her parents. Review of Systems Review of Systems: Yes all other systems are reviewed and are negative ENT: Reports Normal hearing present Cardiovascular: Cardiovascular: Reports as per HPI, Reports no additional cardiovascular complaints, Denies chest pain, Denies syncope, Denies irregular heart rhythm, Denies leg edema and Denies dyspnea Respiratory: Respiratory: Denies dyspnea Neurologic: Reports as per HPI, Reports Normal hearing present and Denies syncope PMFSH Past Medical History Medical History (Updated 02/29/20 @ 10:06 by David Stone MD) Diabetes Hyperlipidemia Hypertension Functional capacity: independent ambulation Family History Pertinent family history: Positive family history of coronary disease in both her parents. Surgical History Surgical History Hx of dilation and curettage Hx of removal of cyst Social History Social History Household Members: Spouse Housing: House Do you presently have visiting nurse or other home services: No Alcohol intake: never Smoking Status: Current every day smoker Tobacco Type: Cigarette Years Smoked: 61 Smoked in Last 30 Days: Yes Patient Interested in Nicotine Replacement: No Patient Given Instructions on How to Stop Smoking: No Second Hand Smoke Exposure: Yes Use of substances other than those prescribed or required for medical reasons: No Currently Displaying Signs/Symptoms of Drug Intoxication Withdrawal: No Have you been hit, kicked, punched, or otherwise hurt by someone within the past year? If so, by whom?: No Do you feel safe in your current relationship?: Yes Is there a partner from a previous relationship who is making you feel unsafe now?: No Are you made to feel afraid or neglected: No Advance Directives: No Advance Directives Information Provided: Yes Do you have thoughts of harming others: None Do you have a plan to hurt others: No Plan Recently lost weight without trying: No service: No Current occupational status: retired Meds Allergies Allergy/AdvReac Type Severity Reaction Status Date / Time amoxicillin Allergy Mild RASH Verified 02/26/20 21:35 Home Medications Medication Instructions Recorded Confirmed Type amlodipine 10 mg PO DAILY 02/26/20 02/27/20 History losartan 50 mg PO DAILY 02/26/20 02/27/20 History metoprolol tartrate 100 mg PO BID 02/26/20 02/26/20 History Physical Exam Vital Signs: Vital Signs: Last Vital Signs Temp 97.7 F 02/29/20 07:22 Pulse 58 02/29/20 07:22 Resp 18 02/29/20 07:22 BP 142/65 H 02/29/20 07:22 Pulse Ox 93 02/29/20 07:22 Body Mass Index 32.9 Const: General: cooperative, comfortable and no acute distress Orientation/consciousness: patient oriented x3 HENMT: Other: Unremarkable Neck: Neck: Yes normal visual inspection Chest: Chest palpation & inspection: normal inspection of the chest Resp: Auscultation: clear to auscultation bilaterally, no crackles and no wheezes Cardio: Jugular venous distension: no JVD Palpation: normal PMI Heart sounds: S1 normal heart sound present, S2 abnormal, no gallops, Murmur heart sound present (soft s2; 3/6 DEYSI aortic area; bilateral carotid bruit) and no rubs GI: Palpation (GI): Soft to palpation Back/Spine/Pelvis: Other: unremarkable Skin: General skin exam: no rashes or lesions noted Neuro: General: patient oriented x3 Cranial nerves: Yes Normal hearing present Extrem: General: Yes no clubbing, cyanosis or edema Psych: Mental Status: mental status grossly normal Results Labs and Meds Result diagrams: 02/27/20 05:35 02/27/20 05:35 Lab results: Laboratory Results - last 24 hr 02/28/20 02/28/20 02/28/20 11:07 15:36 20:34 POC Glucose 148 H 129 H 136 H 02/29/20 07:33 POC Glucose 142 H EKG Interpretation Telemetry: sinus rhythm EKG Comments: EKG with sinus rhythm at 67/Min. Possible old inferior infarct and cannot exclude old anterior infarct. Similar to prior from 2007. Assessment and Plan (1) Transient cerebral ischemia: Qualifiers: Transient cerebral ischemia type: other Qualified Code(s): G45.8 - Other transient cerebral ischemic attacks and related syndromes Status: Acute (2) Preoperative cardiovascular examination: Status: Acute (3) Nonrheumatic aortic (valve) stenosis: Status: Acute (4) Arteriosclerotic vascular disease: Status: Acute Her CTA shows extensive atherosclerotic calcification throughout the aortic arch; moderate stenosis of the left subclavian origin; severe stenosis of the left proximal cervical internal carotid artery. CT head shows no acute intracranial pathology. Clinically, she has murmur of aortic stenosis. She has an echocardiogram to assess this further. Otherwise, she has very high pretest probability for obstructive CAD and hence may require cardiac catheterization. We will follow up with you once the echocardiogram is reviewed.
--- NOTE | 2020-02-29 10:02 | CONS_ITS ---
DATE OF SERVICE: 02/29/2020 REASON FOR CONSULTATION: High-grade carotid stenosis. HISTORY OF PRESENT ILLNESS: A 74-year-old female, who I had seen yesterday, presented with inability to speak. She had a 20-minute episode and regained capacity. She was subsequently worked up and noted to have high-grade left carotid stenosis. She was seen by Neurology, who believed this was a true TIA. She now presents to us for vascular evaluation. PAST MEDICAL HISTORY: Significant for hypertension, hyperlipidemia, and she does report high anxiety levels as well. PAST SURGICAL HISTORY: None significant. MEDICATIONS: Medication list was reviewed per nursing MAR. ALLERGIES: SHE HAS ALLERGIES TO AMOXICILLIN. SOCIAL HISTORY: Nondrinker. 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 FAMILY HISTORY: No history of advanced coronary artery disease or peripheral vascular disease. REVIEW OF SYSTEMS: 13-point review was performed. At the time of my examination, she denied any headache, dizziness, nausea, vomiting, diarrhea, or shortness of breath. No difficulty speaking. No lateralizing signs or symptoms. Rest of 13-point review was essentially negative. PHYSICAL EXAMINATION: GENERAL: Afebrile. VITAL SIGNS: Stable. HEAD AND NECK: Demonstrates no bruits. CHEST: Moving air bilaterally. CARDIAC: Positive S1 and S2. ABDOMEN: Soft. EXTREMITIES: Upper extremities have good radial and ulnar pulses. Lower extremities are warm with good capillary refill. NEUROLOGICAL: II through XII grossly intact. PSYCH: Mood and affect appear within normal limits. Appropriate insight to the disease process. IMAGING: Head CT on 02/25 was no acute intracranial pathology. CTA of the neck demonstrates the left side was 90% and right side had no significant disease. IMPRESSION: High-grade carotid stenosis with transient ischemic attack. She was started on dual anti-platelet agent. We have ordered an echo and are awaiting cardiac risk stratification. Based on that, we will proceed with carotid endarterectomy. This was discussed in detail with the patient, in particular risk factor modification and the surgery. Depending on cardiac risk stratification, we will proceed. Ideally, would like to do the procedure this admission. Thank you for allowing us to assist in her care. If there are any questions or concerns, please do not hesitate to contact us. MD SRI Geiger/ALVARADO / [phone]
[2020-02-29 11:22] LABS: Glucose, Whole Blood 184 mg/dL (60-115)
--- NOTE | 2020-02-29 11:57 | P.PNIM_ITS ---
Subjective Subjective Date of Service: 02/29/20 Interval History: no complaints Cardiovascular Cardiovascular: Reports no additional cardiovascular complaints Respiratory Respiratory: Reports no additional respiratory complaints Physical Exam Vital Signs: Vital Signs: Last Vital Signs Temp 98.0 F 02/29/20 11:49 Pulse 77 02/29/20 11:49 Resp 20 02/29/20 11:49 BP 160/70 H 02/29/20 11:49 Pulse Ox 95 02/29/20 11:49 Body Mass Index 32.9 General: AO X 3, no acute distress Resp: CTA bilateral CVS: S1,S2,RRR GI: soft, non tender, non distended Neuro: motor grossly intact Psych: appropriate affect Objective Data Current Medications Generic Name Dose Route Start Last Admin Trade Name Leobardoq PRN Reason Stop Dose Admin Aspirin 81 mg 02/27/20 09:00 02/29/20 07:44 Aspirin Enteric Coated 81 Mg Tablet.Dr PO 81 mg DAILY ROBERT Administration Atorvastatin Calcium 80 mg 02/27/20 21:00 02/28/20 20:26 Atorvastatin Calcium 80 Mg Tablet PO 80 mg BEDTIME ROBERT Administration Clopidogrel Bisulfate 75 mg 02/28/20 10:05 02/29/20 07:44 Clopidogrel Bisulfate 75 Mg Tablet PO 75 mg DAILY ROBERT Administration Heparin Sodium (Porcine) 5,000 unit 02/26/20 23:30 02/29/20 07:13 Heparin Sodium,Porcine 5,000 Unit/Ml Vial SUBCUT 5,000 unit Q8H ROBERT Administration Labs CBC & Chem 7: 02/27/20 05:35 02/27/20 05:35 Assessment and Plan (1) Transient cerebral ischemia: Status: Acute Assessment and Plan: This is a 74-year-old female with multiple risk factors for CVA including diabetes, hyperlipidemia, hypertension who presents to the hospital with word- finding difficulty and slurred speech which resolved on its own while in the emergency room. Her workup in the ED showed a 90% stenosis of the left internal carotid artery the likely cause of her symptoms. TIA Due to left carotid stenosis, 90% Neurology input appreciated Vascular surgery consulted - likely plan for intervention this admission contiue asa, plavix added; continue statin; keep off BP Meds -- neurology recs to keep SBP > 140 Echo, stress test preop Cardiology following HTN hold antihypertensvies allow for SBP > 140 HLD lipitor DM continue with POC will d/c inuslin as patient is flat out refusing to take it, wants to try diet control. also does not want any PO Obesity weight loss Full Code DVT pptx, subcut. heparin
--- NOTE | 2020-02-29 12:01 | MHC.CM.PN ---
Patient will likely have a left CEA while admitted r/t 90% blockage. Patient independent, discharge plan is home no services. CM will continue to follow for discharge needs.
--- NOTE | 2020-02-29 12:06 | NM_ITS ---
Exercise Myocardial perfusion study Indication: Evaluate for myocardial ischemia Technique: The patient was brought in for an exercise perfusion study on 03/01/2020. Patient performed exercise as per Moris protocol and was injected 25 mCi of sestamibi was given intravenously one target HR was achieved. Images were obtained using the SPECT gamma camera interlaced with the gating device. Images were obtained in supine position. Resting perfusion study was performed on 02/29/2020. Patient was administered 25 mCi of sestamibi intravenously at rest. Images were then obtained in supine position. Images obtained with and without CT attenuation. Total DLP 102 mGy-cm. Images were processed with the software and compared side to side in short axis, horizontal long axis and vertical long axis views. Findings: The stress perfusion study showed non attenuated images show mildly to moderately reduced uptake in the inferolateral wall of the LV myocardium. The main of the LV myocardium is normally mildly reduced uptake in the lateral and moderately reduced uptake in the apex of the LV myocardium. The gated study shows normal LV systolic function with calculated LVEF of greater than 70 %. LV cavity is normal in size. The gated study shows normal systolic wall thickening and contraction of all segments. There is no transient ischemic dilation. Resting study shows non attenuated images show normal uptake of radiotracer in all segments of LV myocardium. Attenuation corrected images also show normal uptake of radiotracer in all segments of LV myocardium.. Gating at rest reveals systolic wall motion with ejection fraction at greater than 70 %. The findings are consistent with mild to moderate intensity inferolateral wall ischemia. NM/NM león perf SPECT rest & str Impression: 1. Inferolateral ischemia 2. Gated LVEF is greater than 70% 3. Transient ischemic dilatation not present Stress EKG is negative for ischemia
--- NOTE | 2020-02-29 13:46 | MHC.STROKE ---
Addendum entered by Cyndi Garcia RN 03/02/20 10:40: IT WAS DECIDED BY VASCULAR SURGERY TO DUE TO CEA ON 03/14/20. THE PATIENT AND I DISCUSSED MONITORING HER BLOOD PRESSURE AT HOME, CALLING 911 IF STROKE SYMPTOMS RETURN. SHE LIVES IWTH HER AND SHE WILL DISCUSS THE DISCHARGE INSTRUCTIONS WITH HIM. SHE NEEDS TO TAKE ALL MEDICATIONS PRESCRIBED. SHE IS MOTIVATED TO GET BETTER. WE DISCUSSED STOPPING SMOKING AND CONTROLLING HER RISK FACTORS INCLUDING DIET AND EXERCISE. I INFORMED HER SHE CAN CALL ME WITH ANY QUESTIONS AND MY NUMBER IS ON THE BACK OF THE STROKE BOOKLET. Addendum entered by Cyndi Garcia RN 03/01/20 13:48: I REINFORCED STROKE EDUCATION TODAY, WE REVIEWED MRI IMAGES OF HER EMBOLIC STROKES AND LOCATION. I ANSWERED ALL OF HER QUESTIONS. I DID SPEAK WITH DR. AUSTIN AND REVIEWED THE MRI RESULTS WITH HIM. PLEASE SEE HIS NOTE FROM TODAY. I ALSO RELAYED THIS INFORMATION TO DR LOVE. Original Note: I MET WITH PATIENT TODAY AND WE DISCUSSED STROKE EDUCATION AND HER PLAN OF CARE. I PROVIDED SMOKING CESSATION EDUCATION. SHE ROLLS HER OWN CIGARETTES AND SAID THEY DO NOT HAVE CHEMICALS IN THEM SO SHE DOESN'T FEEL LIKE SHE WILL GO THROUGH WITHDRAWAL. SHE ALSO IS REFUSING A NICOTINE PATCH. SHE PREVIOUSLY WAS ON A STATIN BUT DID NOT STAY ON IT BECAUSE IT DIDN'T AGREE WITH ME AND AI DID RESEARCH ON IT AND WASN'T SURE IF I NEEDED IT . SHE IS AGREEABLE TO THE ATORVASTATIN SHE IS ON CURRENTLY BECAUSE THINGS HAVE CHANGED . SHE EXPERIENCED A SUDDEN ONSET OF WORD FINDING ON 02/26/20 THAT RESOLVED. IN SPEAKING WITH HER TODAY SHE WAS HAVING SOME SLIGHT WORD FINDING ISSUES THE LONGER I SPOKE WITH HER. RECALLING CERTAIN NAMES. I DID REPORT THIS TO DR AUSTIN AND HE IS RECOMMENDING A MRI BRAIN W/O CONTRAST. I DID RELAY THIS TO DR LOVE AND HE ORDERED IT. I DID THE MRI SCREENING FORM AND EXPLAINED THE TEST TO HER. SHE IS ALSO GETTING THE INJECTION FOR THE CARDIAC NUCLEAR SCAN AND WE WILL TRY TO COORDINATE THESE TESTS BACK TO BACK. I REVIEWED THE STROKE EDUCATION BOOKLET, HER CURRENT MEDICATIONS AND EXPLAINED WHY SHE WAS ON EACH MEDICATION. I GAVE HER A HANDOUT ON CAROTID ENDARTERECTOMY AND SHE SAID DR MENDEZ DID EXPLAIN THE PROCEDURE TO HER. SHE DID SAY SHE WAS LESS ANXIOUS AFTER UNDERSTANDING EVERYTHING AND I ENCOURAGED HER TO ASK QUESTIONS. I WILL CONTINUE TO FOLLOW.
[2020-02-29 16:00] LABS: Glucose, Whole Blood 122 mg/dL (60-115)
[2020-02-29] MEDS: 0.9 % Sodium Chloride 1,000 ML 100 ML IVCONT (16:40)
[2020-02-29] MEDS: Atorvastatin Calcium 80 MG TABLET PO (22:05)
[2020-02-29 22:16] LABS: Glucose, Whole Blood 131 mg/dL (60-115)
[2020-03-01 04:00] VITALS: BP 149/62; PULSE 70; RESP 18; TEMP 37; O2SAT 96
[2020-03-01 07:48] VITALS: BP 159/64; PULSE 71; RESP 18; TEMP 36.2; O2SAT 91
[2020-03-01 08:03] LABS: Glucose, Whole Blood 119 mg/dL (60-115)
[2020-03-01] MEDS: Heparin Sodium,Porcine 5,000 UNIT/ML VIAL 5000 UNIT SUBCUT ×2 (08:26→15:55)
[2020-03-01] MEDS: Clopidogrel Bisulfate 75 MG TABLET PO (08:26)
[2020-03-01] MEDS: Aspirin Enteric Coated 81 MG TABLET.DR PO (08:26)
--- NOTE | 2020-03-01 09:18 | HO.VASCPN ---
Subjective Subjective Date of Service: 03/01/20 Patient reports: no new complaints and feels better Interval history: Patient seen and examined. No events overnight. Has had echo performed. In addition had a confirmatory MRI. She is for routine hospital follow-up. Physical Exam Vital Signs: Vital Signs: Last Vital Signs Temp 97.1 F 03/01/20 07:48 Pulse 71 03/01/20 07:48 Resp 18 03/01/20 07:48 BP 159/64 H 03/01/20 07:48 Pulse Ox 91 L 03/01/20 07:48 Body Mass Index 32.9 Const: General: cooperative, healthy appearing and no acute distress Orientation/consciousness: oriented to person, oriented to place and oriented to time HENMT: Head: Yes normal to inspection Neck: Carotids: no bruits Chest: Chest palpation & inspection: normal inspection of the chest Resp: Effort & Inspection: normal respiratory effort and able to speak in complete sentences Auscultation: clear to auscultation bilaterally Cardio: Rate: regular rate Heart sounds: S1 normal heart sound present and S2 normal heart sound present GI: Inspection: Yes normal to inspection Skin: General skin exam: no rashes or lesions noted Wounds: no wounds Neuro: General: oriented to person, oriented to place, oriented to time and CN's II-XI intact bilaterally Extrem: General: Yes normal to inspection, Yes full ROM and Yes no clubbing, cyanosis or edema Psych: Appearance: grossly normal and well kempt Speech and movement: Normal speech and movement present Affect: normal affect Progress Note: A&P Assessment and plan (1) Stroke due to stenosis of left carotid artery: Status: Acute Assessment and Plan: Patient has no residual neurologic deficit from stroke event. Confirmatory MRI did D fine an acute stroke. Echo appeared to be fairly reasonable with an ejection fraction of roughly 70%. We will await stress testing today. She is currently being maintained on a statin aspirin and Plavix. Will follow up after stress testing. Thank you for allowing me to participate in her care. Fall Risk Details Current Medications: Current Medications Generic Name Dose Route Start Last Admin Trade Name Freq PRN Reason Stop Dose Admin Aspirin 81 mg 02/27/20 09:00 03/01/20 08:26 Aspirin Enteric Coated 81 Mg Tablet. PO 81 mg DAILY ROBERT Administration Atorvastatin Calcium 80 mg 02/27/20 21:00 02/29/20 22:05 Atorvastatin Calcium 80 Mg Tablet PO 80 mg BEDTIME ROBERT Administration Clopidogrel Bisulfate 75 mg 02/28/20 10:05 03/01/20 08:26 Clopidogrel Bisulfate 75 Mg Tablet PO 75 mg DAILY ROBERT Administration Heparin Sodium (Porcine) 5,000 unit 02/26/20 23:30 03/01/20 08:26 Heparin Sodium,Porcine 5,000 Unit/Ml Vial SUBCUT 5,000 unit Q8H ROBERT Administration Time Spent With Patient Time: Total time spent is greater than 50% in coordination of care (as documented) at patient's floor/unit and/or counseling patient: Time with patient: 25 - 35 minutes
--- NOTE | 2020-03-01 09:45 | P.PNNE_ITS ---
Subjective Subjective Date of Service: 03/01/20 Interval History: Minimal word finding difficulties Physical Exam Vital Signs: Vital Signs: Last Vital Signs Temp 97.1 F 03/01/20 07:48 Pulse 71 03/01/20 07:48 Resp 18 03/01/20 07:48 BP 159/64 H 03/01/20 07:48 Pulse Ox 91 L 03/01/20 07:48 Body Mass Index 32.9 Const: General: cooperative, comfortable, no acute distress, well developed, alert and awake Nutritional Appearance: well nourished Orientation/consciousness: oriented to person, oriented to place and oriented to time Limitations: no limitations HENMT: Head: Yes normal to inspection, Yes normocephalic and Yes atraumatic Ears: hearing grossly normal bilaterally General nose exam: Normal external nose present Face and sinus: Yes normal facial exam Mouth: Normal oral and palatal mucosa present Eyes: General: appearance normal, both eyes and all related structures Visual Guillory: normal visual guillory by confrontation Alignment and Position: alignment normal Periorbital: periorbital findings normal Eyelids: Yes eyelids normal Conjunctivae: conjunctivae normal Sclerae: sclerae normal Corneas: corneas normal Pupils: Equal, round and reactive pupils present and Pupil accommodation reflex normal EOM: EOMs intact bilaterally Direct Ophthalmoscopy: normal light reflex Neck: Neck: Yes normal visual inspection, Yes full ROM and Yes no meningeal signs Thyroid: Thyroid normal Carotids: normal carotid upstroke and bounding pulses Chest: Chest palpation & inspection: normal inspection of the chest Resp: Effort & Inspection: normal respiratory effort Auscultation: clear to auscultation bilaterally Cardio: Rate: regular rate Rhythm: regular rhythm Heart sounds: S1 normal heart sound present and S2 normal heart sound present Peripheral puls es: Peripheral pulses 2+ throughout GI: Inspection: Yes normal to inspection Percussion: Yes normal to percussion Auscultation: normal bowel sounds Rectal Exam - Female: deferred Back/Spine/Pelvis: Cervical Spine: normal cervical lordosis and cervical ROM normal Thoracic/Lumbar Spine: thoracic and lumbar spine normal to inspection Skin: General skin exam: no rashes or lesions noted Neuro: General: oriented to person, oriented to place, oriented to time, gait normal, tone normal, moves all extremities, Normal light touch and pain sensation, no meningeal signs, no focal motor deficits, CN's II-XI intact bilaterally, normal sensation to monofilament and deep tendon reflexes 2+ bilaterally Cranial nerves: Yes CN's II-XII intact bilaterally, Yes Equal, round and reactive pupils present, Yes Bilaterally intact EOM present, Yes Nystagmus not present, Yes Normal facial strength present, Yes Midline tongue present, Yes Normal gag reflex present, Yes Symmetric palate elevation present, Yes Normal hearing present and Yes Ability to bilaterally rotate head present Cognition (Neuro): normal cognition Speech: Other speech findings present (Neuro) Gait exam (Neuro): Normal gait present Motor exam (neuro): 5/5 motor strength present throughout, Pronator motor function not present, no tremor noted, no asterixis, Motor fasciculations not present, Normal motor muscle tone present throughout and Motor abnormalities not present Sensory Exam: Bilaterally intact graphesthesia Deep tendon reflexes (DTR's): Right triceps reflex intensity grade: 2+, Left triceps reflex intensity grade: 2+, Rt Biceps (C5, C6): 2+, Left biceps reflex intensity grade: 2+, Right brachioradialis reflex intensity grade: 2+, Left brachioradialis reflex intensity grade: 2+, Right patellar reflex intensity grade: 2+, Left patellar reflex intensity grade: 2+, Right ankle reflex intensity grade: 2+ and Left ankle reflex intensity grade: 2+ Plantar Reflex Responses: downgoing: right, left and bilateral Coordination: [id number] test normal, [id number] test normal, tandem gait normal and Romberg test negative Pupils: Normal pupillary reactivity/response: bilateral Extrem: General: Yes normal to inspection, Yes normal exam except as noted and Yes no pedal edema Psych: Appearance: grossly normal Mental Status: mental status grossly normal Speech and movement: Normal speech and movement present and Clear speech present Affect: normal affect Attitude: cooperative Thought process: Normal thought process present Objective Data Labs CBC & Chem 7: 02/27/20 05:35 02/27/20 05:35 Labs: Laboratory Results - last 24 hr 02/29/20 02/29/20 02/29/20 11:11 15:54 21:28 POC Glucose 184 H 122 H 131 H 03/01/20 07:50 POC Glucose 119 H Progress Note: A&P Assessment and plan (1) Stroke due to stenosis of left carotid artery: Status: Acute Assessment and Plan: MRI brain reviewed. There are 3-4 small punctate embolic infarcts in the left parietal cortex c/w embolism from the carotid stenosis. This should not affect proceeding with left carotid endarterectomy. Continue dual anti-platelet therapy till then and keep systolic BP above 160 preferably Fall Risk Details Current Medications: Current Medications Generic Name Dose Route Start Last Admin Trade Name Leobardoq PRN Reason Stop Dose Admin Aspirin 81 mg 02/27/20 09:00 03/01/20 08:26 Aspirin Enteric Coated 81 Mg Tablet.Dr PO 81 mg DAILY ROBERT Administration Atorvastatin Calcium 80 mg 02/27/20 21:00 02/29/20 22:05 Atorvastatin Calcium 80 Mg Tablet PO 80 mg BEDTIME ROBERT Administration Clopidogrel Bisulfate 75 mg 02/28/20 10:05 03/01/20 08:26 Clopidogrel Bisulfate 75 Mg Tablet PO 75 mg DAILY ROBERT Administration Heparin Sodium (Porcine) 5,000 unit 02/26/20 23:30 03/01/20 08:26 Heparin Sodium,Porcine 5,000 Unit/Ml Vial SUBCUT 5,000 unit Q8H ROBERT Administration Time Spent With Patient Time: Total time spent is greater than 50% in coordination of care (as documented) at patient's floor/unit and/or counseling patient: Time with patient: 15 - 24 minutes
--- NOTE | 2020-03-01 10:05 | PM.PNCARD ---
Subjective Subjective Date of Service: 03/01/20 Interval history: She states that she feels okay. She denies any chest pain or any other cardiac symptoms at this time. Review of Systems Review of Systems Constitutional : No Weight loss, No Fever, No Chills, No Night Sweats, No Fatigue, No Malaise ENT/Mouth : No Hearing loss, No Ear Pain, No Nasal Congestion, No Sinus Pain, No Hoarseness, No sore throat, No Rhinorrhea, No Swallowing Difficulty Eyes: No Eye Pain, No Swelling, No Redness, No Foreign Body, No Discharge, No Vision Changes Cardiovascular : No Chest Pain, No SOB, No Dyspnea on Exertion, No Orthopnea, No Edema, No Palpitations Respiratory : No Cough, No Sputum, No Wheezing, No Smoke Exposure, No Dyspnea Gastrointestinal : No Nausea, No Vomiting, No Diarrhea, No Constipation, No abdominal Pain, No Hematochezia, No Melena Genitourinary : no irregular bleeding, No Dysuria, No Urinary Frequency, No Hematuria, No Urinary Incontinence, No Urgency, No Flank Pain, No Urinary Flow Changes, No Hesitancy Musculoskeletal : No joint pain, No Myalgias, No Joint Swelling Skin : No Skin Lesions, No rash Neuro : No Weakness, No Numbness, patient complaining of slurry speech now, before patient had aphasia and dysarthria, left-sided mouth droop Psych : No Anxiety/Panic, No Depression, No SI/HI/AH/VH, No Social Issues, Heme/Lymph: No Bruising, No Bleeding,No Lymphadenopathy Endocrine : No Polyuria, No Polydipsia, No Temperature Intolerance Reports Normal hearing present Cardiovascular: Denies syncope Reports as per HPI, Reports Normal hearing present and Denies syncope Physical Exam Vital Signs: Last Vital Signs Temp 97.1 F 03/01/20 07:48 Pulse 71 03/01/20 07:48 Resp 18 03/01/20 07:48 BP 159/64 H 03/01/20 07:48 Pulse Ox 91 L 03/01/20 07:48 Body Mass Index 32.9 Const General: cooperative, comfortable and no acute distress Orientation/consciousness: patient oriented x3 HENMT Other: Unremarkable Neck Neck: Yes normal visual inspection Chest Chest palpation & inspection: normal inspection of the chest Resp Auscultation: clear to auscultation bilaterally, no crackles and no wheezes Cardio Jugular venous distension: no JVD Palpation: normal PMI Heart sounds: S1 normal heart sound present, S2 abnormal, no gallops, Murmur heart sound present (soft s2; 3/6 DEYSI aortic area; bilateral carotid bruit) and no rubs GI Palpation (GI): Soft to palpation Back/Spine/Pelvis Other: unremarkable Skin General skin exam: no rashes or lesions noted Neuro General: patient oriented x3 Cranial nerves: Yes Normal hearing present Extrem General: Yes no clubbing, cyanosis or edema Psych Mental Status: mental status grossly normal Results Labs and Meds Result diagrams: 02/27/20 05:35 02/27/20 05:35 Lab results: Laboratory Results - last 24 hr 02/29/20 02/29/20 02/29/20 11:11 15:54 21:28 POC Glucose 184 H 122 H 131 H 03/01/20 07:50 POC Glucose 119 H Progress Note: A&P Assessment and plan (1) Transient cerebral ischemia: Status: Acute (2) Preoperative cardiovascular examination: Status: Acute (3) Nonrheumatic aortic (valve) stenosis: Status: Acute (4) Arteriosclerotic vascular disease: Status: Acute Assessment and Plan: Her CTA shows extensive atherosclerotic calcification throughout the aortic arch; moderate stenosis of the left subclavian origin; severe stenosis of the left proximal cervical internal carotid artery. CT head shows no acute intracranial pathology. Echocardiogram reviewed and that actually shows hyperdynamic LVEF but there was no significant aortic stenosis. Discussed with Interventional about a potential cardiac catheterization but due to the extent of aortic plaque, there is risk of stroke and hence we can start with stress testing today. Fall Risk Details Current Medications: Current Medications Generic Name Dose Route Start Last Admin Trade Name Leobardoq PRN Reason Stop Dose Admin Aspirin 81 mg 02/27/20 09:00 03/01/20 08:26 Aspirin Enteric Coated 81 Mg Tablet. PO 81 mg DAILY ROBERT Administration Atorvastatin Calcium 80 mg 02/27/20 21:00 02/29/20 22:05 Atorvastatin Calcium 80 Mg Tablet PO 80 mg BEDTIME ROBERT Administration Clopidogrel Bisulfate 75 mg 02/28/20 10:05 03/01/20 08:26 Clopidogrel Bisulfate 75 Mg Tablet PO 75 mg DAILY ROBERT Administration Heparin Sodium (Porcine) 5,000 unit 02/26/20 23:30 03/01/20 08:26 Heparin Sodium,Porcine 5,000 Unit/Ml Vial SUBCUT 5,000 unit Q8H ROBERT Administration Time Spent With Patient Time: Total time spent is greater than 50% in coordination of care (as documented) at patient's floor/unit and/or counseling patient: Time with patient: 15 - 24 minutes
--- NOTE | 2020-03-01 11:39 | P.PNIM_ITS ---
Subjective Subjective Date of Service: 03/01/20 Interval History: no changes Cardiovascular Cardiovascular: Reports no additional cardiovascular complaints Respiratory Respiratory: Reports no additional respiratory complaints Physical Exam Vital Signs: Vital Signs: Last Vital Signs Temp 97.1 F 03/01/20 07:48 Pulse 71 03/01/20 07:48 Resp 18 03/01/20 07:48 BP 159/64 H 03/01/20 07:48 Pulse Ox 91 L 03/01/20 07:48 Body Mass Index 32.9 General: AO X 3, no acute distress Resp: CTA bilateral CVS: S1,S2,RRR GI: soft, non tender, non distended Neuro: motor grossly intact Psych: appropriate affect Objective Data Current Medications Generic Name Dose Route Start Last Admin Trade Name Leobardoq PRN Reason Stop Dose Admin Aspirin 81 mg 02/27/20 09:00 03/01/20 08:26 Aspirin Enteric Coated 81 Mg Tablet.Dr PO 81 mg DAILY ROBERT Administration Atorvastatin Calcium 80 mg 02/27/20 21:00 02/29/20 22:05 Atorvastatin Calcium 80 Mg Tablet PO 80 mg BEDTIME ROBERT Administration Clopidogrel Bisulfate 75 mg 02/28/20 10:05 03/01/20 08:26 Clopidogrel Bisulfate 75 Mg Tablet PO 75 mg DAILY ROBERT Administration Heparin Sodium (Porcine) 5,000 unit 02/26/20 23:30 03/01/20 08:26 Heparin Sodium,Porcine 5,000 Unit/Ml Vial SUBCUT 5,000 unit Q8H ROBERT Administration Labs CBC & Chem 7: 02/27/20 05:35 02/27/20 05:35 Imaging MRI - head: Attestation: I personally reviewed and interpreted this imaging study as follows: Radiologist's impression: IMPRESSION: - Multiple small acute infarcts within the left frontal, parietal, and temporal lobes located within the left MCA territory. There is no mass effect and there is no hemorrhagic transformation. - There is a small focus of susceptibility signal within the left frontal lobe on image 18 of series 6, likely a small focus of chronic hemosiderin staining. Assessment and Plan (1) Transient cerebral ischemia: Status: Acute Assessment and Plan: This is a 74-year-old female with multiple risk factors for CVA including diabetes, hyperlipidemia, hypertension who presents to the hospital with word- finding difficulty and slurred speech which resolved on its own while in the emergency room. Her workup in the ED showed a 90% stenosis of the left internal carotid artery the likely cause of her symptoms. CVA Due to left carotid stenosis, 90% Neurology input appreciated Vascular surgery consulted - likely plan for intervention this admission contiue asa, plavix added; continue statin; Follow-up stress test preop Cardiology following HTN hold antihypertensvies allow for SBP > 160 HLD lipitor DM continue with POC diet control per patient's wishes Obesity weight loss Full Code DVT pptx, subcut. heparin
[2020-03-01 12:00] VITALS: BP 145/57; PULSE 79; RESP 18; TEMP 36.3; O2SAT 95
[2020-03-01 12:34] LABS: Glucose, Whole Blood 139 mg/dL (60-115)
[2020-03-01 15:53] VITALS: BP 141/69; PULSE 93; RESP 14; TEMP 36.5; O2SAT 94
[2020-03-01 20:00] VITALS: BP 173/81; PULSE 77; RESP 18; TEMP 36.6; O2SAT 94
[2020-03-01] MEDS: Atorvastatin Calcium 80 MG TABLET PO (20:06)
[2020-03-01 21:35] LABS: Glucose, Whole Blood 140 mg/dL (60-115)
[2020-03-02] VITALS: BP 142/66; PULSE 75; RESP 18; TEMP 36.6; O2SAT 98
[2020-03-02] MEDS: Heparin Sodium,Porcine 5,000 UNIT/ML VIAL 5000 UNIT SUBCUT ×2 (00:08→08:22)
[2020-03-02 03:30] VITALS: BP 139/70; PULSE 76; RESP 18; TEMP 36.3; O2SAT 95
[2020-03-02 07:38] LABS: Glucose, Whole Blood 135 mg/dL (60-115)
[2020-03-02 07:53] VITALS: BP 158/67; PULSE 79; RESP 20; TEMP 36.7; O2SAT 93
[2020-03-02] MEDS: Clopidogrel Bisulfate 75 MG TABLET PO (08:21)
[2020-03-02] MEDS: Aspirin Enteric Coated 81 MG TABLET.DR PO (08:21)
--- NOTE | 2020-03-02 09:21 | P.PNVS_ITS ---
Subjective Subjective Date of Service: 03/02/20 Patient reports: no new complaints and feels better Interval history: No events. Doing well. s/p echo and stress test. No neuro events since admission Physical Exam Vital Signs: Vital Signs: Last Vital Signs Temp 98.0 F 03/02/20 07:53 Pulse 79 03/02/20 07:53 Resp 20 03/02/20 07:53 BP 158/67 H 03/02/20 07:53 Pulse Ox 93 03/02/20 07:53 Body Mass Index 32.9 Const: General: cooperative, healthy appearing and no acute distress Orientation/consciousness: oriented to person, oriented to place and oriented to time HENMT: Head: Yes normal to inspection Neck: Carotids: no bruits Chest: Chest palpation & inspection: normal inspection of the chest Resp: Effort & Inspection: normal respiratory effort and able to speak in complete sentences Auscultation: clear to auscultation bilaterally Cardio: Rate: regular rate Heart sounds: S1 normal heart sound present and S2 normal heart sound present GI: Inspection: Yes normal to inspection Skin: General skin exam: no rashes or lesions noted Wounds: no wounds Neuro: General: oriented to person, oriented to place, oriented to time and CN's II-XI intact bilaterally Extrem: General: Yes normal to inspection, Yes full ROM and Yes no clubbing, c yanosis or edema Psych: Appearance: grossly normal and well kempt Speech and movement: Normal speech and movement present Affect: normal affect Progress Note: A&P Assessment and plan (1) Stroke due to stenosis of left carotid artery: Status: Acute Assessment and Plan: Left carotid stenosis with stroke. Discussed cardiac risk with patient. Stable for d/c on ASA and Plavix. Will schedule for OR on 03/14/2020. Patient in agreement. Thank you Fall Risk Details Current Medications: Current Medications Generic Name Dose Route Start Last Admin Trade Name Leobardoq PRN Reason Stop Dose Admin Aspirin 81 mg 02/27/20 09:00 03/02/20 08:21 Aspirin Enteric Coated 81 Mg Tablet. PO 81 mg DAILY ROBERT Administration Atorvastatin Calcium 80 mg 02/27/20 21:00 03/01/20 20:06 Atorvastatin Calcium 80 Mg Tablet PO 80 mg BEDTIME ROBERT Administration Clopidogrel Bisulfate 75 mg 02/28/20 10:05 03/02/20 08:21 Clopidogrel Bisulfate 75 Mg Tablet PO 75 mg DAILY ROBERT Administration Heparin Sodium (Porcine) 5,000 unit 02/26/20 23:30 03/02/20 08:22 Heparin Sodium,Porcine 5,000 Unit/Ml Vial SUBCUT 5,000 unit Q8H ROBERT Administration Time Spent With Patient Time: Total time spent is greater than 50% in coordination of care (as documented) at patient's floor/unit and/or counseling patient:25 Time with patient: 25 - 35 minutes
--- NOTE | 2020-03-02 10:08 | P.PNCA_ITS ---
Subjective Subjective Date of Service: 03/02/20 Interval history: She states that she feels okay. Denies any specific cardiovascular complaints at this time. Review of Systems Review of Systems Yes all other systems are reviewed and are negative Reports Normal hearing present Cardiovascular: Reports as per HPI, Reports no additional cardiovascular complaints, Denies Abdominal Cramping after Meds, Denies Abdominal Distension, Denies cool extremities, Denies painful fingertips, Denies chest pain, Denies chest pain at rest, Denies chest pain with activity, Denies Epigastric Pain, Denies syncope, Denies rapid heart rate, Denies leg edema, Denies lightheadedness, Denies Loss of Consciousness, Denies radiating jaw, neck or arm pain, Denies dyspnea, Denies dyspnea on exertion, Denies orthopnea and Denies slow heart rate Respiratory: Denies dyspnea and Denies dyspnea on exertion Reports as per HPI, Reports Normal hearing present and Denies syncope Physical Exam Vital Signs: Last Vital Signs Temp 98.0 F 03/02/20 07:53 Pulse 79 03/02/20 07:53 Resp 20 03/02/20 07:53 BP 158/67 H 03/02/20 07:53 Pulse Ox 93 03/02/20 07:53 Body Mass Index 32.9 Const General: cooperative, comfortable and no acute distress Orientation/consciousness: patient oriented x3 HENMT Other: Unremarkable Neck Neck: Yes normal visual inspection Chest Chest palpation & inspection: normal inspection of the chest Resp Auscultation: clear to auscultation bilaterally, no crackles and no wheezes Cardio Jugular venous distension: no JVD Palpation: normal PMI Heart sounds: S1 normal heart sound present, S2 abnormal, no gallops, Murmur heart sound present (soft s2; 3/6 DEYSI aortic area; bilateral carotid bruit) and no rubs GI Palpation (GI): Soft to palpation Back/Spine/Pelvis Other: unremarkable Skin General skin exam: no rashes or lesions noted Neuro General: patient oriented x3 Cranial nerves: Yes Normal hearing present Extrem General: Yes no clubbing, cyanosis or edema Psych Mental Status: mental status grossly normal Results Labs and Meds Result diagrams: 02/27/20 05:35 02/27/20 05:35 Lab results: Laboratory Results - last 24 hr 03/01/20 03/01/20 03/02/20 12:29 21:23 07:35 POC Glucose 139 H 140 H 135 H Progress Note: A&P Assessment and plan (1) Transient cerebral ischemia: Status: Acute (2) Preoperative cardiovascular examination: Status: Acute (3) Nonrheumatic aortic (valve) stenosis: Status: Acute (4) Arteriosclerotic vascular disease: Status: Acute Assessment and Plan: Her CTA shows extensive atherosclerotic calcification throughout the aortic arch; moderate stenosis of the left subclavian origin; severe stenosis of the left proximal cervical internal carotid artery. CT head shows no acute intracranial pathology. Echocardiogram reviewed and that actually shows hyperdynamic LVEF but there was no significant aortic stenosis. Myocardial perfusion imaging study shows mild to moderate intensity inferolateral ischemia. Discussed with Interventional cardiology () about cardiac catheterization but it was felt that there is a significant stroke risk due to aortic plaque burden. Overall, with regard to the carotid endarterectomy, she is at high cardiac risk. This risk isn't modifiable. Continue anti-platelet therapy. Continue high-dose statins. We will also start a small dose of beta- patricia due to her elevated blood pressure. Will arrange office follow-up in few weeks. Fall Risk Details Current Medications: Current Medications Generic Name Dose Route Start Last Admin Trade Name Freq PRN Reason Stop Dose Admin Aspirin 81 mg 02/27/20 09:00 03/02/20 08:21 Aspirin Enteric Coated 81 Mg Tablet. PO 81 mg DAILY ROBERT Administration Atorvastatin Calcium 80 mg 02/27/20 21:00 03/01/20 20:06 Atorvastatin Calcium 80 Mg Tablet PO 80 mg BEDTIME ROBERT Administration Clopidogrel Bisulfate 75 mg 02/28/20 10:05 03/02/20 08:21 Clopidogrel Bisulfate 75 Mg Tablet PO 75 mg DAILY ROBERT Administration Heparin Sodium (Porcine) 5,000 unit 02/26/20 23:30 03/02/20 08:22 Heparin Sodium,Porcine 5,000 Unit/Ml Vial SUBCUT 5,000 unit Q8H ROBERT Administration Time Spent With Patient Time: Total time spent is greater than 50% in coordination of care (as documented) at patient's floor/unit and/or counseling patient: Time with patient: 15 - 24 minutes
--- NOTE | 2020-03-02 11:13 | P.DS_ITS ---
DS: Providers Provider Date of admission: 02/26/20 23:24 Primary care physician: Unknown Physician Consults: 02/27/20 00:28 Consult to Neurology Routine Consulting Provider: [facility] Reason for consultation: TIA Has provider been notified: Yes Consult to Vascular Surgery Routine Consulting Provider: [facility] Reason for consultation: TIA Has provider been notified: No 02/28/20 10:04 Consult to Cardiology Routine Consulting Provider: Nader Mcwilliams Reason for consultation: preop eval Has provider been notified: No DS: Diagnosis Discharge Diagnosis (1) Preoperative cardiovascular examination: Status: Acute (2) Nonrheumatic aortic (valve) stenosis: Status: Acute (3) Arteriosclerotic vascular disease: Status: Acute (4) Stroke due to stenosis of left carotid artery: Status: Acute (5) Hypertension: Status: Acute DS: Medications Discharge Medications Home Medications: Home Medications Medication Instructions Recorded Confirmed amlodipine 10 mg PO DAILY 02/26/20 02/27/20 losartan 50 mg PO DAILY 02/26/20 02/27/20 metoprolol tartrate 100 mg PO BID 02/26/20 02/26/20 Previous Rx's Medication Instructions Recorded aspirin 81 mg PO DAILY #30 tab 03/02/20 atorvastatin 80 mg PO BEDTIME #30 tab 03/02/20 clopidogrel 75 mg PO DAILY #30 tab 03/02/20 DS: Summary Hospital Course Hospital Course: Patient was admitted for acute CVA, found to have 90% left carotid stenosis as likely etiology. She was given aspirin, Plavix, Lipitor. She did have some residual expressive aphasia, but otherwise no major deficits. She was seen by Cardiology for perioperative eval for endarterectomy. Her stress test was positive for ischemia, however, given findings of significant plaque in the aortic arch was deemed to be too high risk for catheterization. Plan is to continue medical treatment and follow-up with vascular to pursue endarterectomy in the short-term. Time Spent with Patient Time attestation: Total time spent providing and/or coordinating discharge services: Quality: Stroke Pt Provided Written Stroke Discharge Instructions: Patient given written information Physical Exam Vital Signs: Vital Signs: Last Vital Signs Temp 98.0 F 03/02/20 07:53 Pulse 79 03/02/20 07:53 Resp 20 03/02/20 07:53 BP 158/67 H 03/02/20 07:53 Pulse Ox 93 03/02/20 07:53 Body Mass Index 32.9 General: AO X 3, no acute distress Resp: CTA bilateral CVS: S1,S2,RRR GI: soft, non tender, non distended Neuro: motor grossly intact Psych: appropriate affect DS: Data Data Completed and Pending Labs on day of discharge: 02/26/20 21:11 CT angio head neck stroke Stat CT head for stroke Stat 02/26/20 21:12 ECG 12 lead EKG Stat 02/26/20 21:13 EKG Documentation DIRECTED 02/26/20 21:15 Labetalol HCL [Normodyne] 10 mg IVPUSH ONCE ONE 02/26/20 21:18 Glucose, Whole Blood Routine 02/26/20 21:29 Prothrombin Time Whole Bld POC Routine ~PT, ~INR - Anti Coag Clinic Routine 02/26/20 21:31 iohexoL 350 MG/ML [Omnipaque 350 MG/ML] 100 ml IV ONCE ONE 02/26/20 21:55 Basic Metabolic Panel Stat Complete Blood Count Auto Diff Stat Creatine Kinase Total Stat Partial Thromboplastin Time Stat Prothrombin Time INR Stat Stroke Lab Use Stat Troponin-I High Sensitivity Stat 02/26/20 22:29 Aspirin Enteric Coated [Ecotrin] 325 mg PO ONCE ONE 02/26/20 22:38 COVID-19 ID NOW ([employer]) Stat 02/26/20 23:21 Transfer Order Routine 02/27/20 00:41 Glucose, Whole Blood Routine 02/27/20 00:58 RT Smoking Initial Cessation ONCE 02/27/20 05:35 Basic Metabolic Panel Routine Complete Blood Count Auto Diff Routine Hemoglobin A1c Routine Lipid Panel Routine 02/27/20 07:18 Glucose, Whole Blood Routine 02/27/20 09:00 Atorvastatin Calcium [Lipitor] 40 mg PO DAILY Atorvastatin Calcium [Lipitor] 80 mg PO DAILY Losartan Potassium [Cozaar] 50 mg PO DAILY Metoprolol Tartrate [Lopressor] 100 mg PO BID amLODIPine Besylate [Norvasc] 10 mg PO DAILY 02/27/20 Breakfast Diabetic Diet 02/27/20 12:07 Glucose, Whole Blood Routine 02/27/20 12:09 Add Laboratory Test Routine 02/27/20 16:30 Insulin Lispro [Humalog] See Dose Instructions SUBCUT QIDACHS 02/27/20 16:36 Glucose, Whole Blood Routine 02/27/20 20:27 Glucose, Whole Blood Routine 02/28/20 07:12 Glucose, Whole Blood Routine 02/28/20 11:07 Glucose, Whole Blood Routine 02/28/20 15:36 Glucose, Whole Blood Routine 02/28/20 20:34 Glucose, Whole Blood Routine 02/29/20 CA lexiscan stress w león Routine MR head/brain wo con Stat 02/29/20 00:28 CA echo transthoracic complete Routine 02/29/20 07:33 Glucose, Whole Blood Routine 02/29/20 11:11 Glucose, Whole Blood Routine 02/29/20 12:06 NM león perf SPECT rest & str Routine 02/29/20 12:15 0.9 % Sodium Chloride [Ns] 1,000 ml IVCONT 100 mls/hr 02/29/20 15:54 Glucose, Whole Blood Routine 02/29/20 21:28 Glucose, Whole Blood Routine 03/01/20 07:50 Glucose, Whole Blood Routine 03/01/20 11:01 Aminophylline 250 mg .ROUTE .STK-MED ONE Regadenoson [Lexiscan] 0.4 mg IV .STK-MED ONE 03/01/20 12:29 Glucose, Whole Blood Routine 03/01/20 21:23 Glucose, Whole Blood Routine 03/02/20 07:35 Glucose, Whole Blood Routine 03/02/20 10:30 Metoprolol Succinate ER [Toprol XL] 50 mg PO DAILY Laboratory Last Values WBC 8.8 X10*3/uL (4.8-10.8) 02/27/20 05:35 RBC 4.69 X10*6/uL (4.20-5.50) 02/27/20 05:35 Hgb 15.1 g/dl (12.0-16.0) 02/27/20 05:35 Hct 45.7 % (37-47) 02/27/20 05:35 MCV 97.4 fL (80-98) 02/27/20 05:35 MCH 32.2 pg (27.0-33.0) 02/27/20 05:35 MCHC 33.0 g/dl (31.0-35.0) 02/27/20 05:35 RDW 13.0 % (11.0-16.0) 02/27/20 05:35 Plt Count 206 X10*3/uL (160-400) 02/27/20 05:35 MPV 11.2 fL (9.4-12.3) 02/27/20 05:35 Immature Gran % (Auto) 0.3 % (0.0-0.4) 02/27/20 05:35 Neut % (Auto) 57.4 % (45-73) 02/27/20 05:35 Lymph % (Auto) 32.2 % (20-40) 02/27/20 05:35 [place] % (Auto) 7.8 % (2-11) 02/27/20 05:35 Eos % (Auto) 1.6 % (0-4) 02/27/20 05:35 Baso % (Auto) 0.7 % (0-2) 02/27/20 05:35 Lymph # (Auto) 2.8 X10*3/uL (1.2-4.9) 02/27/20 05:35 [place] # (Auto) 0.7 X10*3/uL (0.1-1.2) 02/27/20 05:35 Eos # (Auto) 0.1 X10*3/uL (0.0-0.4) 02/27/20 05:35 Baso # (Auto) 0.1 X10*3/uL (0.0-0.2) 02/27/20 05:35 Abs Immat Gran (auto) 0.03 X10*3/uL (0.00-0.03) 02/27/20 05:35 Absolute Neuts (auto) 5.1 X10*3/uL (2.0-8.3) 02/27/20 05:35 Absolute Nucleated RBC 0.000 X10*3/uL (0.0-0.012) 02/27/20 05:35 Nucleated RBC % (auto) 0.0 /100WBC (0.0-0.2) 02/27/20 05:35 PT 10.5 SEC (10.8-13.0) L 02/26/20 21:55 Whole Blood PT 11.6 sec (11.1-13.5) 02/26/20 21:29 INR 0.9 (0.9-1.1) 02/26/20 21:55 Whole Blood INR 1.0 (0.9-1.1) 02/26/20 21:29 APTT 34.5 SEC (24.1-38.0) 02/26/20 21:55 Sodium 140 mmol/L (135-145) 02/27/20 05:35 Potassium 4.4 mmol/l (3.3-5.1) 02/27/20 05:35 Chloride 107 mmol/L (96-108) 02/27/20 05:35 Carbon Dioxide 22 mmol/L (22-29) 02/27/20 05:35 Anion Gap 15 (-20) 02/27/20 05:35 BUN 17 mg/dL (9-16) H 02/27/20 05:35 Creatinine 0.90 mg/dL (0.5-1.4) 02/27/20 05:35 Estim Creat Clear Calc 64.7 02/27/20 05:35 Estimated GFR > 60 02/27/20 05:35 POC Glucose 135 mg/dL (60-115) H 03/02/20 07:35 Random Glucose 123 mg/dL (60-115) H D 02/27/20 05:35 Estimat Average Glucose 183 mg/dL 02/27/20 05:35 Hemoglobin A1c % 8.0 % 02/27/20 05:35 Calcium 8.8 mg/dL (8.4-10.2) 02/27/20 05:35 Total Creatine Kinase 111 U/L (26-140) 02/26/20 21:55 Troponin I High Sens < 3.5 ng/L (<3.5-17.0) 02/26/20 21:55 Triglycerides 376 mg/dL 02/27/20 05:35 Cholesterol 304 mg/dL 02/27/20 05:35 LDL Cholesterol, Calc 194 mg/dl 02/27/20 05:35 HDL Cholesterol 35 mg/dL 02/27/20 05:35 COVID-19 ([facility]) Negative (Negative) 02/26/20 22:38 COVID-19 Clin Com See Note 02/26/20 22:38 Discharge Plan Discharge Patient Disposition: Home, Self-Care Referrals: Physician,Unknown [Primary Care Provider] - Discharge Medications: New atorvastatin 80 mg Tablet 80 mg PO BEDTIME Qty: 30 RF: 0 clopidogrel 75 mg Tablet 75 mg PO DAILY Qty: 30 RF: 0 aspirin 81 mg Tablet,Delayed Release (Dr/Ec) 81 mg PO DAILY Qty: 30 RF: 0 Continued metoprolol tartrate 100 mg Tablet 100 mg PO BID RF: 0 amlodipine 10 mg PO DAILY RF: 0 losartan 50 mg PO DAILY RF: 0 Discharge Orders: Discharge Order (Routine); Ordered 03/02/20 Ordered By: Jef Potts Activity on Discharge: As tolerated Visit Report Forms: Patient Portal Discharge page Care Plan Goals: prevent further strokes, manage heart disease Health Concerns: carotid stenosis, CAD Plan of Treatment: start aspirin, plavix, lipitor, conitnue bp meds, follow up with vascular and cardiology
--- NOTE | 2020-03-02 11:14 | MHC.CM.PN ---
Patient will be discharged home today no services. Patient will set up own transport.
[2020-03-02 11:30] LABS: Glucose, Whole Blood 145 mg/dL (60-115)
--- NOTE | 2020-03-02 15:01 | MHC.STROKE ---
LATE ENTRY 1500 PATIENT HAS BEEN DISCHARGED. I CONTACTED DR AUSTIN REGARDING THE PATIENTS BLOOD PRESSURE MEDICATION AND HE DOES WANT HER TO AVOID HYPOTENSION. I CONTACTED DR PERERA (MAPPING ANALYST) AND REVIEWED HER BLOOD PRESSURE MEDICATIONS. HE ADVISED ME TO INSTRUCT HER TO TAKE HER BLOOD PRESSURE AT HOME, WHICH I DID AND CALL HIM IF SHE HAS ANY SYMPTOMS OR LOW READINGS. I CALLED THE PATIENT AT HOME AND I REVIEWED THESE INSTRUCTIONS. WE ALSO REVIEWED HER MEDICATIONS AND WHEN TO TAKE THEM. SHE WILL START THE METOPROLOL TONIGHT WITH THE LIPITOR AND TAKE THE ASPIRIN, PLAVIX, METOPROLOL, LOSARTAN, AND AMLODIPINE IN THE MORNING. SHE SAID HER DOES HAVE A BLOOD PRESSURE CUFF AND I ADVISED HER TO TAKE HER BLOOD PRESSURE DAILY OR IF SHE HAS SYMPTOMS. I ALSO ADVISED HER TO CALL DR PERERA AT [phone] AT HIS OFFICE IF SHE HAS ANY QUESTIONS REGARDING TAKING THESE MEDICATIONS HE INSTRUCTED ME TO INFORM HER. SHE DOES UNDERSTAND THESE INSTRUCTIONS. I ALSO LEFT HER MY PHONE NUMBER IF SHE HAS ANY QUESTIONS.
--- NOTE | 2020-03-15 11:14 | MHC.STROKE ---
LATE ENTRY: THE PATIENT HAS DECIDED TO TAKE THE STATIN, ALTHOUGH WE DISCUSSED HER A1C 8.0 AND SHE DOES NOT WANT TO START ON ANY ADDITIONAL MEDICATIONS AND SHE WANTS TO MANAGE THIS THROUGH HER DIET.
== END 2020-03-02 12:00 | disposition home or self-care (01) | DRG 66 ==
LOC: HO.ED 22:08 → HO.IMC 23:52
PROVIDERS: Family Medicine; Admitting Provider Internal Medicine; Emergency Provider Emergency Medicine; Visit Provider Internal Medicine
DX: I63.232 Cerebral infarction due to unspecified occlusion or stenosis of left carotid arteries (principal); R29.810 Facial weakness; R47.01 Aphasia; Z88.0 Allergy status to penicillin; R29.701 NIHSS score 1; E11.9 Type 2 diabetes mellitus without complications; E66.9 Obesity, unspecified; I10 Essential (primary) hypertension; Z68.32 Body mass index [BMI] 32.0-32.9, adult; F41.9 Anxiety disorder, unspecified; Z20.828 Contact with and (suspected) exposure to other viral communicable diseases; F17.210 Nicotine dependence, cigarettes, uncomplicated; Z71.6 Tobacco abuse counseling; Z79.899 Other long term (current) drug therapy
CPT/HCPCS: 36415; 70450; 70496; 70498; 70551; 78452; 80048; 80061; 82550; 82947; 83036; 84484; 85025; 85610; 85730; 87635; 93005; 93017; 93306; 96374; 97161; 97165; 99223; 99232; 99285; A9500; J0280; J2785; Q9967

== ENCOUNTER 2020-03-14 06:26 | Inpatient (IN) | payer MEDICARE, SELFPAY ==
--- NOTE | 2020-03-09 10:13 | P.CONAN_ITS ---
Documented by User: Cristina Olguin 03/09/20 10:55 HPI - Anesthesia Eval Consult details Narrative: 74yo F for Carotid Endarterectomy *[place] [facility] [place] with acute CVA, found to have 90% left carotid stenosis as likely etiology. She was given aspirin, Plavix, Lipitor. She did have some residual expressive aphasia, but otherwise no major deficits. High Cardiac Risk - unmodifiable, see below Reviewed with Dr Patricia JOYNER Past Medical History Medical History (Updated 03/10/20 @ 00:01 by Bell Duran) Arthritis CVA (cerebral vascular accident) Depression Diabetes Expressive aphasia Hx of cardiac murmur Hyperlipidemia Hypertension Lab test negative for COVID-19 virus Wears partial dentures Family History Family history of problems with anesthesia: No Surgical History Surgical History (Updated 03/09/20 @ 10:26 by Catia Cedeno) History of excision of pilonidal cyst Hx of dilation and curettage History of Problems with Anesthesia: No Social History Social History Household Members: Spouse Housing: House Are you a primary certified social workers in health care to a significant other at home: Yes () Do you presently have visiting nurse or other home services: No Alcohol intake: never Smoking Status: Former smoker Tobacco Type: Cigarette Packs Per Day: 1 Cigarettes Per Day: 20.0 Years Smoked: 61 Smoked in Last 30 Days: Yes Smoking Quit Date: 02/26/20 Second Hand Smoke Exposure: Yes Use of substances other than those prescribed or required for medical reasons: No Have you been hit, kicked, punched, or otherwise hurt by someone within the past year? If so, by whom?: No Advance Directives Information Provided: No Recently lost weight without trying: No service: No Current occupational status: retired Narrative Narrative: During inpt admit, seen by cardiology and neuro. OK for surgery, but high risk. Cardiology deemed too high stroke risk for cardiac cath due to significant plaque in aorta. No recent symptoms of cold/flu. No chest pain/SOB with activity. Meds Allergies Allergy/AdvReac Type Severity Reaction Status Date / Time amoxicillin Allergy Mild RASH Verified 03/09/20 10:32 Home Medications Medication Instructions Recorded Confirmed Type amlodipine 10 mg PO DAILY 02/26/20 03/09/20 History losartan 50 mg PO DAILY 02/26/20 03/09/20 History metoprolol tartrate 100 mg PO BID 02/26/20 03/09/20 History Exam Exam Date and Time: March 09, 2020 1013 Pertinent Lab Results Pertinent Lab Results: Laboratory Tests 02/27/20 02/27/20 05:35 05:35 WBC 8.8 Hgb 15.1 Hct 45.7 Plt Count 206 Sodium 140 Potassium 4.4 Chloride 107 Carbon Dioxide 22 BUN 17 H Creatinine 0.90 Labs DOS per surgeon order. Narrative Narrative: EKG 02/26/20: Normal sinus rhythm Inferior infarct (cited on or before 11-MAY-2006) Cannot rule out Anterior infarct (cited on or before 28-OCT-2007) Abnormal ECG When compared with ECG of 29-OCT-2007 07:12, No significant change was found ECHO 02/2020: - The left ventricular systolic function is hyperdynamic. The visually estimated ejection fraction is >70%. - No obvious valvular pathology seen on this study. Stress MIBI 02/2020: 1. Inferolateral ischemia 2. Gated LVEF is greater than 70% 3. Transient ischemic dilatation not present Stress EKG is negative for ischemia MRI Brain and Head/Neck CTA 02/2020: Reports on chart. Airway Mallampati Class: I TM Dist: >3cm Neck ROM: Full Partial: Upper and Lower Heart: RRR Lungs: Upper lobes coarse, clears with cough. Lower lobes dim. Assessment and Plan Assessment Anesthesia Assessment: Anesthesia Plan Discussed, Smoking Cess. Discussed and PAT Visit Documented by User: Jimmy Mccartney MD 03/14/20 07:28 [facility] Past Medical History Medical History (Updated 03/10/20 @ 00:01 by Bell Duran) Arthritis CVA (cerebral vascular accident) Depression Diabetes Expressive aphasia Hx of cardiac murmur Hyperlipidemia Hypertension Lab test negative for COVID-19 virus Wears partial dentures Surgical History Surgical History (Updated 03/09/20 @ 10:26 by Catia Urgo) History of excision of pilonidal cyst Hx of dilation and curettage Social History Social History Household Members: Spouse Housing: House Are you a primary certified social workers in health care to a significant other at home: Yes () Do you presently have visiting nurse or other home services: No Alcohol intake: never Smoking Status: Former smoker Tobacco Type: Cigarette Packs Per Day: 1 Cigarettes Per Day: 20.0 Years Smoked: 61 Smoked in Last 30 Days: Yes Smoking Quit Date: 02/26/20 Second Hand Smoke Exposure: Yes Use of substances other than those prescribed or required for medical reasons: No Have you been hit, kicked, punched, or otherwise hurt by someone within the past year? If so, by whom?: No Advance Directives Information Provided: No Recently lost weight without trying: No service: No Current occupational status: retired Meds Allergies Allergy/AdvReac Type Severity Reaction Status Date / Time amoxicillin Allergy Mild RASH Verified 03/09/20 10:32 Home Medications Medication Instructions Recorded Confirmed Type amlodipine 10 mg PO DAILY 02/26/20 03/09/20 History losartan 50 mg PO DAILY 02/26/20 03/09/20 History metoprolol tartrate 100 mg PO BID 02/26/20 03/09/20 History Assessment and Plan Assessment Anesthesia Assessment: Anesthesia Plan Discussed, PAT Visit and Chart Reviewed Final Anesthetic Review NPO: Yes ASA Class: III Final Preanesthetic Review: No Changes in Pt Med Stat, Meds/Allgs Chart Reviewed, Consent Obtained/Reviewed and Anes Risks/Benef Reviewed Patient Risk: High Procedure Risk: High Anesthetic Plan Anesthetic Plan: GA Disposition: Standard PACU
[2020-03-09 10:17] VITALS: BMI 31.9
[2020-03-09 10:35] VITALS: BP 150/70; PULSE 50; RESP 20; O2SAT 96
[2020-03-14] VITALS (14 sets, daily range): BP systolic 98–148; BP diastolic 41–55; PULSE 43–86; RESP 10–24; TEMP 36.2; O2SAT 95–99
[2020-03-14 06:42] LABS: Glucose, Whole Blood 144 mg/dL (60-115)
[2020-03-14] MEDS: Lactated Ringers 1,000 ML 100 ML IVCONT ×2 (06:48→15:47)
[2020-03-14] MEDS: vancomycin HCL 1,000 MG in 0.9 % Sodium Chloride 250 ML 270 MG IV ×2 (06:48→20:25)
[2020-03-14 06:53] LABS: Hematocrit 43.3 % (37-47); Hemoglobin 14.2 g/dl (12.0-16.0); Mean Corpuscular HGB Conc 32.8 g/dl (31.0-35.0); Mean Corpuscular Volume 97.5 fL (80-98); Mean Platelet Volume 10.8 fL (9.4-12.3); Platelet Count 242 X10*3/uL (160-400); Red Blood Count 4.44 X10*6/uL (4.20-5.50); Red Cell Distribution Width 12.9 % (11.0-16.0); White Blood Count 9.5 X10*3/uL (4.8-10.8)
[2020-03-14 06:55] LABS: INTERNATIONAL NORM RATIO 0.8 (0.9-1.1); Prothrombin Time 9.7 SEC (10.8-13.0)
[2020-03-14 06:59] LABS: Anion Gap 12 (12-20); Blood Urea Nitrogen 24 mg/dL (9-16); Calcium 9.2 mg/dL (8.4-10.2); Carbon Dioxide 25 mmol/L (22-29); Chloride 105 mmol/L (96-108); Creatinine Clr Calc Pharmacy 53.1; Estimated Glomerular Filt Rate 52; Glucose Random 141 mg/dL (60-115); Potassium 4.4 mmol/l (3.3-5.1); Sodium 138 mmol/L (135-145)
[2020-03-14 06:59] LABS: COVID-19 Test Negative (Negative); IDNOW Serial# 9DD0AD1C
[2020-03-14] MEDS: Albuterol Sulfate (0.083%) 2.5 MG/3 ML VIAL.NEB INHALE (07:10)
--- NOTE | 2020-03-14 11:24 | OP_ITS ---
SURGEON: Gilbert Sanchez MD INDICATIONS: Dia is a 74-year-old female, who originally presented to the hospital 2 to 3 weeks prior with a finding of left carotid stenosis with stroke. She was subsequently discharged. She now presents for operative intervention. Risks, benefits, and complications were discussed in detail with the patient. She understood and consented. PREOPERATIVE DIAGNOSIS: POSTOPERATIVE DIAGNOSIS: PROCEDURE PERFORMED: Left carotid endarterectomy. ESTIMATED BLOOD LOSS: 100 mL. COMPLICATIONS: ANESTHESIA: General. ASSISTANTS: SPECIMENS: 1. Plaque. 2. Incidental lymph node. PREPROCEDURE DIAGNOSIS: Left carotid stenosis with stroke. POSTPROCEDURE DIAGNOSIS: Left carotid stenosis with stroke. DISPOSITION: The patient to Recovery with stable vitals. DESCRIPTION OF PROCEDURE: The patient was taken to the operating room, prior to which a time-out was called for patient identification and site verification. Left carotid was prepped and draped in standard surgical fashion. Incision was carried out over the anterior border of the sternocleidomastoid down to the sternal notch on the left side. We got down to the fascia, down through to the carotid sheath. We were able to identify the internal jugular, facial branch was then ligated. We isolated the common carotid, internal carotid, and external carotid with silastic loops. We then placed an 8-Australian Briones shunt. Once this was done, endarterectomy was completed. Please note that the plaque was 90% occlusive and extremely necrotic and friable. Once this was removed in its entirety, it was flushed clean. Distal edge was tacked down with a 7-0 Prolene suture. Once this was accomplished, flush irrigated in the entire area. There was no loose debris noted. We then tacked on a patch XenoSure patch with a 6-0 Prolene in circumferential manner. Prior to closure, it was flushed clear. We opened up the external, common, and internal. In that order, flow was reestablished. Two bleeding sites had to be closed over with 7-0 Prolene sutures. Once this was all done, adequate hemostasis was achieved. 7-flat Zack-Keating drain was then placed. We then reapproximated deep layer with 2-0 Vicryl, superficial layer with 3-0 Vicryl, finally skin with a running 4-0 Monocryl sutures. Steri-Strips and sterile dressing were applied. At the end of the case, sponge, needle, instrument counts were correct. The patient tolerated the procedure well, returned to Recovery with stable vitals. FANS CLERK: Leora Minaya PA-C. DRAINS: One 7-flat [facility]. MD SRI Geiger/ALVARADO / [phone]
--- NOTE | 2020-03-14 12:19 | P.HPCC_ITS ---
History of Present Illness Date of Service: 03/14/20 Mrs. Dong is admitted to the ICU this afternoon postoperatively following left carotid endarterectomy by Dr. Sanchez. The patient is a 74-year-old woman status post acute CVA on 02/26/20, at which time she was found to have 90% left carotid stenosis as likely etiology. She was given aspirin, Plavix, Lipitor. She did have some residual expressive aphasia, but otherwise no deficits. PAST MEDICAL HISTORY: Smoking. Discontinued 02/26/2020 CVA w expressive aphasia Diabetes Hypertension Hyperlipidemia Arthritis Depression MEDICATIONS AT HOME INCLUDE: amlodipine 10 mg DAILY losartan 50 mg DAILY metoprolol 100 mg BID PREOPERATIVE LABS notable for: BUN/creat 24/1.0; hemoglobin 14. ECHO 02/2020: - LV systolic function is hyperdynamic. EF > 70%. No obvious valvular pathology. - Normal RV, normal IVC. Stress MIBI 02/2020: 1. Inferolateral ischemia 2. Gated LVEF is greater than 70% 3. Transient ischemic dilatation not present Stress EKG negative for ischemia Underwent left CEA today under GETA. Intraop surgical and anesthetic course unremarkable. Extubated post op without incident, recovered in PACU, and then tx to ICU for overnite neuro- and hemodynamic monitoring. On admission to ICU, the patient is fully awake, conversant, and appropriate. She has slight dysarthria, and possibly very slight aphasia/speech hesitancy. Otherwise, gross neuro exam is entirely normal, with full motor function in all 4 extremities. The dressing on her left neck wound is clean and dry; she has dark blood coming out of her DERIC drain. Heart rate is 62, blood pressure 109/45. She?s breathing easy with respiratory rate about 20, sat is 97% on 4 L nasal cannula. No jugular venous distention. IMPRESSION: Doing well following left carotid endarterectomy. Admitted to ICU for overnight neuro-and hemodynamic monitoring. Neurovascular monitoring today and overnight. Lab checks in the morning. Otherwise usual supportive care, and follow-up per Dr. Sanchez. Time: . [facility] Past Medical History Medical History Arthritis CVA (cerebral vascular accident) Depression Diabetes Expressive aphasia Hx of cardiac murmur Hyperlipidemia Hypertension Lab test negative for COVID-19 virus Wears partial dentures Surgical History Surgical History History of excision of pilonidal cyst Hx of dilation and curettage Social History Social History Household Members: Spouse Housing: House Are you a primary medicare biller to a significant other at home: Yes () Do you presently have visiting nurse or other home services: No Alcohol intake: never Smoking Status: Former smoker Tobacco Type: Cigarette Packs Per Day: 1 Cigarettes Per Day: 20.0 Years Smoked: 61 Smoked in Last 30 Days: Yes Smoking Quit Date: 02/26/20 Second Hand Smoke Exposure: Yes Use of substances other than those prescribed or required for medical reasons: No Have you been hit, kicked, punched, or otherwise hurt by someone within the past year? If so, by whom?: No Do you feel safe in your current relationship?: Yes Is there a partner from a previous relationship who is making you feel unsafe now?: No Are you made to feel afraid or neglected: No Advance Directives Information Provided: No Do you have thoughts of harming others: None Do you have a plan to hurt others: No Plan Recently lost weight without trying: No service: No Current occupational status: retired Meds Allergies Allergy/AdvReac Type Severity Reaction Status Date / Time amoxicillin Allergy Mild RASH Verified 03/09/20 10:32 Home Medications Medication Instructions Recorded Confirmed Type amlodipine 10 mg PO DAILY 02/26/20 03/09/20 History losartan 50 mg PO DAILY 02/26/20 03/09/20 History metoprolol tartrate 100 mg PO BID 02/26/20 03/09/20 History Physical Exam Vital Signs: Vital Signs: Last Vital Signs Temp 97.1 F 03/14/20 10:39 Pulse 45 L 03/14/20 11:54 Resp 16 03/14/20 11:54 BP 99/44 L 03/14/20 11:54 Pulse Ox 98 03/14/20 11:54 Body Mass Index 31.9 Results Labs CBC and Chem 7: 03/14/20 06:33 03/14/20 06:33 Labs: Laboratory Results - last 24 hr 03/14/20 03/14/20 03/14/20 06:25 06:33 06:33 MCV 97.5 MCH 32.0 MCHC 32.8 RDW 12.9 Plt Count 242 MPV 10.8 Absolute Nucleated RBC 0.000 Nucleated RBC % (auto) 0.0 PT 9.7 L INR 0.8 L APTT 32.0 Anion Gap Estim Creat Clear Calc Estimated GFR POC Glucose Random Glucose Calcium COVID-19 ([facility]) Negative COVID-19 Clin Com See Note 03/14/20 03/14/20 06:33 06:36 MCV MCH MCHC RDW Plt Count MPV Absolute Nucleated RBC Nucleated RBC % (auto) PT INR APTT Anion Gap 12 Estim Creat Clear Calc 53.1 Estimated GFR 52 POC Glucose 144 H Random Glucose 141 H Calcium 9.2 COVID-19 ([facility]) COVID-19 Clin Com
[2020-03-14] MEDS: 0.9 % Sodium Chloride Flush 3 ML SYRINGE IVFLUSH (15:47)
--- NOTE | 2020-03-14 18:57 | PC.NURSE ---
Patient admitted to ICU from PACU s/p CEA. Vitals stable. Neuro checks intact. Neurovasc checks stable. Ate dinner. Will continue to monitor.
[2020-03-14] MEDS: Atorvastatin Calcium 80 MG TABLET PO (20:30)
[2020-03-15] VITALS (7 sets, daily range): BP systolic 99–131; BP diastolic 41–53; PULSE 42–49; RESP 12–17; O2SAT 93–96; BMI 31.9
[2020-03-15] MEDS: Lactated Ringers 1,000 ML 100 ML IVCONT (01:34)
[2020-03-15] MEDS: 0.9 % Sodium Chloride Flush 3 ML SYRINGE IVFLUSH ×2 (01:35→08:09)
--- NOTE | 2020-03-15 06:57 | PC.NURSE ---
PT A&O X3. NEUROS INTACT. SLIGHT APHASIA NOTED BUT VERY MILD AND PT STATES THIS IS NORMAL FOR HER SINCE HER STROKE EARLIER THIS MONTH. PEARRLA. GRESHAM. DENIES PAIN. DSG LEFT NECK WITH SMALL AMT OF OLD STAINING. DERIC DRAIN OUTPUT 10 ML FOR 12 HOURS OF BLOODY OUTPUT. BP STABLE SBP 110'S-120'S. MONITOR SHOWS SB, 40'S-50'S. 2100 DOSE OF METOPROLOL HELD PER PROVIDER LIGIA AYALA. AFEBRILE. TAKING PO FLUIDS WELL. U/O GOOD VIA PANDYA CATH.
[2020-03-15] MEDS: amLODIPine Besylate 10 MG TABLET PO (08:08)
[2020-03-15] MEDS: Aspirin Enteric Coated 81 MG TABLET.DR PO (08:08)
[2020-03-15] MEDS: Clopidogrel Bisulfate 75 MG TABLET PO (08:08)
[2020-03-15] MEDS: Losartan Potassium 50 MG TABLET PO (08:09)
[2020-03-15 09:07] LABS: MANUAL DIFF FLAG NO
[2020-03-15 09:13] LABS: Basophils Percent Auto 0.1 % (0-2); Hemoglobin 11.5 g/dl (12.0-16.0); Imm Gran Abs Auto 0.08 X10*3/uL (0.00-0.03); Imm Gran Pct Auto 0.4 % (0.0-0.4); Lymphocytes Absolute Auto 1.4 X10*3/uL (1.2-4.9); Lymphocytes Percent Auto 7.6 % (20-40); Mean Corpuscular HGB Conc 32.9 g/dl (31.0-35.0); Mean Corpuscular Hemoglobin 31.9 pg (27.0-33.0); Mean Platelet Volume 10.7 fL (9.4-12.3); Monocytes Absolute Auto 0.8 X10*3/uL (0.1-1.2); Monocytes Percent Auto 4.2 % (2-11); Neutrophils Absolute Auto 15.6 X10*3/uL (2.0-8.3); Neutrophils Percent Auto 87.7 % (45-73); Platelet Count 194 X10*3/uL (160-400); Red Blood Count 3.61 X10*6/uL (4.20-5.50); Red Cell Distribution Width 12.9 % (11.0-16.0); White Blood Count 17.8 X10*3/uL (4.8-10.8)
[2020-03-15 09:17] LABS: Prothrombin Time 11.4 SEC (10.8-13.0)
[2020-03-15 09:51] LABS: Anion Gap 10 (12-20); Blood Urea Nitrogen 20 mg/dL (9-16); Carbon Dioxide 25 mmol/L (22-29); Chloride 106 mmol/L (96-108); Creatinine Clr Calc Pharmacy 64.2; Estimated Glomerular Filt Rate > 60; Glucose Random 176 mg/dL (60-115); Potassium 4.6 mmol/l (3.3-5.1); Sodium 136 mmol/L (135-145)
[2020-03-15 10:07] LABS: Calcium 8.4 mg/dL (8.4-10.2)
--- NOTE | 2020-03-15 12:14 | PM.DS ---
DS: Providers Provider Date of admission: 03/14/20 06:26 Primary care physician: Unknown Physician DS: Diagnosis Discharge Diagnosis (1) Stroke due to stenosis of left carotid artery: Status: Acute DS: Medications Discharge Medications Home Medications: Home Medications Medication Instructions Recorded Confirmed amlodipine 10 mg PO DAILY 02/26/20 03/09/20 losartan 50 mg PO DAILY 02/26/20 03/09/20 Previous Rx's Medication Instructions Recorded aspirin 81 mg PO DAILY #30 tab 03/02/20 atorvastatin 80 mg PO BEDTIME #30 tab 03/02/20 clopidogrel 75 mg PO DAILY #30 tab 03/02/20 metoprolol tartrate 100 mg PO DAILY #0 tab 03/15/20 oxycodone-acetaminophen [Percocet] 1 tab PO Q6H PRN #10 tab 03/15/20 DS: Summary Time Spent with Patient Time attestation: Total time spent providing and/or coordinating discharge services: Physical Exam Vital Signs: Vital Signs: Last Vital Signs Temp 97.1 F 03/14/20 10:39 Pulse 45 L 03/15/20 10:00 Resp 17 03/15/20 10:00 BP 99/41 L 03/15/20 10:00 Pulse Ox 95 03/15/20 10:00 Body Mass Index 31.9 Const: General: cooperative, healthy appearing and no acute distress Orientation/consciousness: oriented to person, oriented to place and oriented to time HENMT: Head: Yes normal to inspection Neck: Carotids: no bruits Chest: Chest palpation & inspection: normal inspection of the chest Resp: Effort & Inspection: normal respiratory effort and able to speak in complete sentences Auscultation: clear to auscultation bilaterally Cardio: Rate: regular rate Heart sounds: S1 normal heart sound present and S2 normal heart sound present GI: Inspection: Yes normal to inspection Skin: General skin exam: no rashes or lesions noted Wounds: no wounds Neuro: General: oriented to person, oriented to place, oriented to time and CN's II-XI intact bilaterally Extrem: General: Yes normal to inspection, Yes full ROM and Yes no clubbing, cyanosis or edema Psych: Appearance: grossly normal and well kempt Speech and movement: Normal speech and movement present Affect: normal affect DS: Data Data Completed and Pending Completed studies during hospitalization [Text1]: Pending at discharge 03/14/20 09:12 Surgical [PTH] Routine Labs on day of discharge: 03/09/20 11:55 Type and Screen Routine 03/14/20 06:22 Albuterol Sulfate (0.083%) [Ventolin (0.083%)] 2.5 mg INHALE PREOP ONE vancomycin HCL 1,000 mg 0.9 % Sodium Chloride [Ns] 250 ml IV ONCE 03/14/20 06:22 Glucose, blood poc AM PRE-OP 03/14/20 06:25 COVID-19 ID NOW (Dash) Stat 03/14/20 06:30 Lactated Ringers [Lr] 1,000 ml IVCONT 100 mls/hr 03/14/20 06:33 Basic Metabolic Panel Stat Complete Blood Count no Diff Stat Partial Thromboplastin Time Stat Prothrombin Time INR Stat 03/14/20 06:36 Glucose, Whole Blood Routine 03/14/20 06:41 vancomycin HCL 1,000 mg .ROUTE .STK-MED ONE 03/14/20 07:07 Heparin Sodium,Porcine 1,000 unit IV .STK-MED ONE Heparin Sodium,Porcine 10,000 unit IVPUSH .STK-MED ONE Protamine Sulfate 50 mg IV .STK-MED ONE 03/14/20 07:08 Bupivacaine MPF 0.5 % [Sensorcaine MPF 0.5% 10 ML] 10 ml .ROUTE .STK-MED ONE Lidocaine HCl 1 % MPF [Xylocaine 1 % MPF] 5 ml .ROUTE .STK-MED ONE Lidocaine HCl 2 % MPF [Xylocaine 2 % MPF] 5 ml .ROUTE .STK-MED ONE Midazolam HCl/PF [Versed] 2 mg .ROUTE .STK-MED ONE Rocuronium Conrad [Zemuron] 100 mg IV .STK-MED ONE fentaNYL citrate/PF [Sublimaze] 50 mcg .ROUTE .STK-MED ONE propofoL [Diprivan] 200 mg IVPUSH .STK-MED ONE 03/14/20 07:09 Albuterol Sulfate (0.083%) [Ventolin (0.083%)] 2.5 mg .ROUTE .STK-MED ONE 03/14/20 07:18 Nitroglycerin/D5W 100 mg in 250 ml IVCONT As directed 03/14/20 07:54 ePHEDrine sulfate 50 mg .ROUTE .STK-MED ONE 03/14/20 08:14 Phenylephrine HCL 10 mg .ROUTE .STK-MED ONE 03/14/20 08:39 dexAMETHasone sod phosphate [Decadron] 4 mg .ROUTE .K-MED ONE ondansetron HCL [Zofran] 4 mg .ROUTE .K-MED ONE 03/14/20 09:12 Surgical [PTH] Routine 03/14/20 10:09 Sugammadex Sodium [Bridion] 200 mg IVPUSH .STK-MED ONE 03/14/20 10:10 propofoL [Diprivan] 200 mg IVPUSH .K-MED ONE 03/14/20 10:38 Transfer Order Routine 03/14/20 19:00 vancomycin HCL 1,000 mg 0.9 % Sodium Chloride [Ns] 250 ml IV POSTOP 03/14/20 20:04 vancomycin HCL 1,000 mg .ROUTE .[facility] ONE 03/14/20 21:00 Metoprolol Tartrate [Lopressor] 100 mg PO BID 03/15/20 09:00 Basic Metabolic Panel DAILY Complete Blood Count Auto Diff DAILY Prothrombin Time INR DAILY Laboratory Last Values WBC 17.8 X10*3/uL (4.8-10.8) H 03/15/20 09:00 RBC 3.61 X10*6/uL (4.20-5.50) L 03/15/20 09:00 Hgb 11.5 g/dl (12.0-16.0) L 03/15/20 09:00 Hct 35.0 % (37-47) L 03/15/20 09:00 MCV 97.0 fL (80-98) 03/15/20 09:00 MCH 31.9 pg (27.0-33.0) 03/15/20 09:00 MCHC 32.9 g/dl (31.0-35.0) 03/15/20 09:00 RDW 12.9 % (11.0-16.0) 03/15/20 09:00 Plt Count 194 X10*3/uL (160-400) 03/15/20 09:00 MPV 10.7 fL (9.4-12.3) 03/15/20 09:00 Immature Gran % (Auto) 0.4 % (0.0-0.4) 03/15/20 09:00 Neut % (Auto) 87.7 % (45-73) H 03/15/20 09:00 Lymph % (Auto) 7.6 % (20-40) L 03/15/20 09:00 Crosby % (Auto) 4.2 % (2-11) 03/15/20 09:00 Eos % (Auto) 0.0 % (0-4) 03/15/20 09:00 Baso % (Auto) 0.1 % (0-2) 03/15/20 09:00 Lymph # (Auto) 1.4 X10*3/uL (1.2-4.9) 03/15/20 09:00 Crosby # (Auto) 0.8 X10*3/uL (0.1-1.2) 03/15/20 09:00 Eos # (Auto) 0.0 X10*3/uL (0.0-0.4) 03/15/20 09:00 Baso # (Auto) 0.0 X10*3/uL (0.0-0.2) 03/15/20 09:00 Abs Immat Gran (auto) 0.08 X10*3/uL (0.00-0.03) H 03/15/20 09:00 Absolute Neuts (auto) 15.6 X10*3/uL (2.0-8.3) H 03/15/20 09:00 Absolute Nucleated RBC 0.000 X10*3/uL (0.0-0.012) 03/15/20 09:00 Nucleated RBC % (auto) 0.0 /100WBC (0.0-0.2) 03/15/20 09:00 PT 11.4 SEC (10.8-13.0) 03/15/20 09:00 INR 1.0 (0.9-1.1) 03/15/20 09:00 APTT 32.0 SEC (24.1-38.0) 03/14/20 06:33 Sodium 136 mmol/L (135-145) 03/15/20 09:00 Potassium 4.6 mmol/l (3.3-5.1) 03/15/20 09:00 Chloride 106 mmol/L (96-108) 03/15/20 09:00 Carbon Dioxide 25 mmol/L (22-29) 03/15/20 09:00 Anion Gap 10 (12-20) L 03/15/20 09:00 BUN 20 mg/dL (9-16) H 03/15/20 09:00 Creatinine 0.87 mg/dL (0.5-1.4) 03/15/20 09:00 Estim Creat Clear Calc 64.2 03/15/20 09:00 Estimated GFR > 60 03/15/20 09:00 POC Glucose 144 mg/dL (60-115) H 03/14/20 06:36 Random Glucose 176 mg/dL (60-115) H 03/15/20 09:00 Calcium 8.4 mg/dL (8.4-10.2) D 03/15/20 09:00 COVID-19 ([facility]) Negative (Negative) 03/14/20 06:25 COVID-19 Clin Com See Note 03/14/20 06:25 Blood Type O Positive 03/09/20 11:55 Antibody Screen NEGATIVE 03/09/20 11:55 Discharge Plan Discharge Anticipated Discharge Date/Time: 03/15/20 12:09 Patient Disposition: Home, Self-Care Referrals: Physician,Unknown [Primary Care Provider] - Discharge Medications: New oxycodone-acetaminophen [Percocet] 5-325 mg tablet 1 tab PO Q6H PRN (Reason: pain) Qty: 10 RF: 0 Continued amlodipine 10 mg PO DAILY RF: 0 losartan 50 mg PO DAILY RF: 0 atorvastatin 80 mg Tablet 80 mg PO BEDTIME Qty: 30 RF: 0 clopidogrel 75 mg Tablet 75 mg PO DAILY Qty: 30 RF: 0 aspirin 81 mg Tablet,Delayed Release (Dr/Ec) 81 mg PO DAILY Qty: 30 RF: 0 Changed metoprolol tartrate 100 mg Tablet 100 mg PO DAILY Qty: 0 RF: 0 Discharge Orders: Discharge Order (Routine); Ordered 03/15/20 Ordered By: Gilbert Sanchez Diet: regular diet Activity on Discharge: As tolerated Visit Report Forms: Patient Portal Discharge page Care Plan Goals: post op [facility] recovery Health Concerns: stroke Plan of Treatment: prevent future stroke. Surveilence
--- NOTE | 2020-03-15 12:31 | MHC.CM.PN ---
IMM reviewed and signed. D/C plan is home without services. Son to provide transportation. HCP reviewed, completed and signed. Son, Yonas Dong,[phone], HCP. Copies to patient and scanned into medical record.
--- NOTE | 2020-03-15 14:04 | MHC.STROKE ---
I MET WITH PATIENT AND DISCUSSED A1C OF 8.0 FROM THIS MONTH, SHE DOES NOT WANT TO TAKE ANY ADDITIONAL MEDICATION AT THIS TIME. SHE WILL DISCUSS THIS WITH HER PCP. I ALSO COUNSELED HER ON SMOKING CESSATION AND SHE IS QUITTING DOWN AND STILL ROLLS HER OWN CIGARETTES AND DOES NOT WANT A PATCH. SHE UNDERSTANDS THE STROKE AND CARDIOVASCULAR RISKS OF SMOKING AND MANAGING HER BLOOD SUGARS. SHE IS TAKING THE PLAVIX AND ASPIRIN AND IS TAKING THE STATIN PRESCRIBED ON 03/02/20 AND HAS NOT HAD ANY SIDE EFFECTS. SHE HAS NO FURTHER QUESTIONS AND IS VERY ENCOURAGED THAT SHE HAD THE SURGERY.
--- NOTE | 2020-03-15 14:07 | PC.NURSE ---
Patient discharged to home. Educated about medication and plan of care upon discharge. No services needed. 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
--- NOTE | 2020-03-15 18:30 | HO.POSTANES ---
Post Anesthesia Evaluation Post Anesthesia Evaluation Vital Signs: Vital Signs Pulse Resp BP Pulse Ox 03/15/20 10:00 45 L 17 99/41 L 95 03/15/20 09:42 42 L 03/15/20 08:09 46 L 125/49 L 03/15/20 08:08 49 L 131/53 L Anesthesia: General Endotracheal-GETA Mental Status: Awake Pain Control: Satisfactory Nausea/Vomiting: None Hydration: Adequate Anesthesia-Related Issues: No Anes. Related Issues
== END 2020-03-15 14:10 | disposition home or self-care (01) | DRG 39 ==
LOC: HO.SSSA 06:27 → HO.ICU 10:49
PROVIDERS: Admitting Provider Surgery Vascular Surgery; Visit Provider Anesthesiology
PROC: 03CJ0ZZ Extirpation of Matter from Left Common Carotid Artery, Open Approach (ICD-10-PCS; CPT 35301; principal; 2020-03-14 07:30)
DX: I65.22 Occlusion and stenosis of left carotid artery (principal); Z20.828 Contact with and (suspected) exposure to other viral communicable diseases; Z86.73 Personal history of transient ischemic attack (TIA), and cerebral infarction without residual deficits; Z88.0 Allergy status to penicillin; Z79.01 Long term (current) use of anticoagulants; Z79.82 Long term (current) use of aspirin; Z79.891 Long term (current) use of opiate analgesic; Z79.899 Other long term (current) drug therapy
CPT/HCPCS: 36415; 80048; 82947; 85025; 85027; 85610; 85730; 86850; 86900; 86901; 87635; 88304; 88305; 88311; 94640; C1768; J1100; J2250; J2370; J2405; J3010; J3370

== ENCOUNTER → 2020-03-29 10:36 | Outpatient (BNVA) | payer MEDICARE, SELFPAY | PROVIDERS: Referring Provider Internal Medicine; Visit Provider Surgery Vascular Surgery | DX: I63.232 Cerebral infarction due to unspecified occlusion or stenosis of left carotid arteries (principal) | CPT/HCPCS: 99212 ==

== ENCOUNTER 2020-04-05 08:37 | Outpatient (REF) | payer MEDICARE, SELFPAY ==
[2020-04-05 11:19] LABS: Alanine Aminotransferase 20 U/L (0-31); Alkaline Phosphatase 54 U/L (39-117); Aspartate Amino Transferase 16 U/L (5-31); Bilirubin Direct 0.2 mg/dL (0.0-0.5); Bilirubin Total 0.4 mg/dL (0.0-1.0); Cholesterol 159 mg/dL; HDL Cholesterol 35 mg/dL; LDL Cholesterol Calculated 99 mg/dl; Total Protein 6.7 g/dL (6.5-8.0); Triglycerides 127 mg/dL
== END 2020-04-05 08:38 | disposition home or self-care (01) ==
LOC: HO.LAB 08:37
PROVIDERS: PCP Internal Medicine; Visit Provider Internal Medicine
DX: E78.5 Hyperlipidemia, unspecified (principal); I25.10 Atherosclerotic heart disease of native coronary artery without angina pectoris; I35.0 Nonrheumatic aortic (valve) stenosis
CPT/HCPCS: 36415; 80061; 80076; 99212

== ENCOUNTER 2020-05-23 08:24 | Outpatient (REF) | payer MEDICARE, SELFPAY ==
[2020-05-23 09:53] LABS: Cholesterol 163 mg/dL; HDL Cholesterol 38 mg/dL; LDL Cholesterol Calculated 87 mg/dl; Triglycerides 192 mg/dL
== END 2020-05-23 08:25 | disposition home or self-care (01) ==
LOC: HO.LAB 08:24
PROVIDERS: PCP Registered Nurse; Visit Provider Internal Medicine
DX: E78.00 Pure hypercholesterolemia, unspecified (principal); I25.10 Atherosclerotic heart disease of native coronary artery without angina pectoris; E78.5 Hyperlipidemia, unspecified
CPT/HCPCS: 36415; 80061

== ENCOUNTER 2020-07-05 09:44 | Outpatient (REF) | payer MEDICARE, SELFPAY ==
--- NOTE | ~2020-07-05 | US_ITS ---
EXAMINATION: US EXTRACRANIAL CAROTID DUPLEX, BILATERAL CLINICAL INFORMATION: This is a 75-year-old female with cerebral infarction. Status post left carotid endarterectomy. Carotid artery disease. COMPARISON: None TECHNIQUE: Real-time ultrasound and Doppler techniques (integrating B-mode 2-D vascular images, Doppler spectral analysis and color-flow Doppler imaging) were utilized to interrogate the extracranial carotid arteries, the vertebral arteries and proximal subclavian arteries bilaterally. The degree of stenosis is determined by criteria similar to NASCET. FINDINGS: Right Side: 1. There is minimal atherosclerotic plaque seen in the bifurcation/proximal ICA region. 2. The common carotid artery PSV proximally is 88 cm/s and distally 76 cm/s. 3. The proximal internal carotid artery velocities are 58 cm/s systolic and 10 cm/s diastolic. 4. The proximal external carotid artery PSV is 118 cm/s. 5. The vertebral artery shows antegrade flow. 6. The subclavian artery waveforms are normal. Left Side: 1. There is a normal atherosclerotic plaque seen in the bifurcation/proximal ICA region. 2. The common carotid artery PSV proximally is 92 cm/s and distally 65 cm/s. 3. The proximal internal carotid artery velocities are 143 cm/s systolic and 26 cm/s diastolic. 4. The proximal external carotid artery PSV is 162 cm/s. 5. The vertebral artery shows antegrade flow. 6. The subclavian artery waveforms are normal. US/US carotid duplex BI IMPRESSION: 1. RIGHT: Minimal, non-hemodynamically significant stenosis of the proximal right internal carotid artery corresponding to a 0-49% stenosis by velocity criteria. 2. LEFT: Minimal, non-hemodynamically significant stenosis of the proximal left internal carotid artery corresponding to a 0-49% stenosis by velocity criteria. The velocity measures 143 cm/s but the patient is status post endarterectomy on this side by history. Normally, a velocity of 143 cm/s would suggest 50-79% stenosis. However, when status post endarterectomy this would likely represent 0-49% stenosis.
== END 2020-07-05 09:45 | disposition home or self-care (01) ==
LOC: HO.US 09:44
PROVIDERS: Visit Provider Surgery Vascular Surgery
DX: I63.233 Cerebral infarction due to unspecified occlusion or stenosis of bilateral carotid arteries (principal)
CPT/HCPCS: 93880

== ENCOUNTER → 2020-07-12 09:10 | Outpatient (BNVA) | payer MEDICARE, SELFPAY | PROVIDERS: PCP Registered Nurse; Visit Provider Surgery Vascular Surgery | DX: I63.232 Cerebral infarction due to unspecified occlusion or stenosis of left carotid arteries (principal); I63.239 Cerebral infarction due to unspecified occlusion or stenosis of unspecified carotid artery | CPT/HCPCS: 99212 ==

== ENCOUNTER → 2020-08-02 08:11 | Outpatient (BNVA) | payer MEDICARE, SELFPAY | PROVIDERS: PCP Registered Nurse; Visit Provider Internal Medicine | DX: I25.10 Atherosclerotic heart disease of native coronary artery without angina pectoris (principal); R94.39 Abnormal result of other cardiovascular function study; I63.232 Cerebral infarction due to unspecified occlusion or stenosis of left carotid arteries; E11.8 Type 2 diabetes mellitus with unspecified complications; I10 Essential (primary) hypertension; E78.5 Hyperlipidemia, unspecified; F17.200 Nicotine dependence, unspecified, uncomplicated | CPT/HCPCS: 99212 ==

== ENCOUNTER 2021-01-17 09:25 | Outpatient (REF) | payer MEDICARE, SELFPAY ==
--- NOTE | ~2021-01-17 | US_ITS ---
EXAMINATION: US EXTRACRANIAL CAROTID DUPLEX, BILATERAL CLINICAL INFORMATION: Left endarterectomy, history of cerebral infarcts, diabetes, smoking history, hypertension COMPARISON: None TECHNIQUE: Real-time ultrasound and Doppler techniques (integrating B-mode 2-D vascular images, Doppler spectral analysis and color-flow Doppler imaging) were utilized to interrogate the extracranial carotid arteries, the vertebral arteries and proximal subclavian arteries bilaterally. The degree of stenosis is determined by criteria similar to NASCET. FINDINGS: Right Side: 1. There is calcified atherosclerotic plaque seen in the bifurcation/proximal ICA region. 2. The common carotid artery PSV proximally is 79 cm/s and distally 71 cm/s. 3. The proximal internal carotid artery velocities are 64 cm/s systolic and 10 cm/s diastolic. 4. The proximal external carotid artery PSV is 109 cm/s. 5. The vertebral artery shows antegrade flow. 6. The subclavian artery waveforms are normal. Left Side: 1. There is calcified atherosclerotic plaque seen in the bifurcation/proximal ICA region. 2. The common carotid artery PSV proximally is 91 cm/s and distally 64 cm/s. 3. The proximal internal carotid artery velocities are 173 cm/s systolic and 32 cm/s diastolic. 4. The proximal external carotid artery PSV is 118 cm/s. 5. The vertebral artery shows antegrade flow. 6. The subclavian artery waveforms are normal. US/US carotid duplex BI IMPRESSION: 1. RIGHT: Minimal, non-hemodynamically significant stenosis of the proximal right internal carotid artery corresponding to a 0-49% stenosis by velocity criteria. 2. LEFT: Moderate, hemodynamically significant stenosis of the proximal left internal carotid artery corresponding to a 50-79% stenosis by velocity criteria.
== END 2021-01-17 09:26 | disposition home or self-care (01) ==
LOC: HO.US 09:25
PROVIDERS: Visit Provider Surgery Vascular Surgery
DX: I65.23 Occlusion and stenosis of bilateral carotid arteries (principal); Z86.73 Personal history of transient ischemic attack (TIA), and cerebral infarction without residual deficits
CPT/HCPCS: 93880

== ENCOUNTER → 2021-01-31 09:14 | Outpatient (BNVA) | payer MEDICARE, SELFPAY | PROVIDERS: PCP Registered Nurse; Visit Provider Surgery Vascular Surgery | DX: I63.232 Cerebral infarction due to unspecified occlusion or stenosis of left carotid arteries (principal) | CPT/HCPCS: 99212 ==

== ENCOUNTER → 2021-02-07 08:25 | Outpatient (BNVA) | payer MEDICARE, SELFPAY | PROVIDERS: PCP Registered Nurse; Visit Provider Internal Medicine | DX: I25.10 Atherosclerotic heart disease of native coronary artery without angina pectoris (principal); I63.232 Cerebral infarction due to unspecified occlusion or stenosis of left carotid arteries; I10 Essential (primary) hypertension; E11.8 Type 2 diabetes mellitus with unspecified complications; E78.5 Hyperlipidemia, unspecified; F17.200 Nicotine dependence, unspecified, uncomplicated; R94.39 Abnormal result of other cardiovascular function study | CPT/HCPCS: 93005; 99212 ==

== ENCOUNTER 2021-02-12 09:57 | Inpatient (IN) | payer MEDICARE, SELFPAY ==
--- NOTE | ~2021-02-12 | CT_ITS ---
EXAMINATION: CT ABDOMEN AND PELVIS WITHOUT CONTRAST CLINICAL INFORMATION: Left flank pain COMPARISON: None TECHNIQUE: Multidetector volumetric imaging was performed from the superior aspect of the liver through the pubic symphysis. Sagittal and coronal reformatted images were obtained on the technologist's workstation. This CT examination was performed using dose optimization techniques as appropriate, variously including the following: *Automated exposure control *Adjustment of mA and/or kV according to patient size (this includes techniques or standardized protocols for targeted exams where dose is matched to indication/reason for exam; i.e. extremities or head) *Use of iterative reconstruction technique DLP: 701 mGy-cm FINDINGS: LUNG BASES: There is a 3 mm nodule within the lingula. Pleural scarring present within the lingula. Triple vessel coronary calcifications. LIVER, GALLBLADDER, AND BILIARY TREE: The liver is normal in size, shape, and attenuation. No focal hepatic lesion or biliary ductal dilatation is present. Cholelithiasis suspected. No pericholecystic fluid or edema. PANCREAS: Unremarkable. SPLEEN: Unremarkable. ADRENAL GLANDS: Unremarkable. KIDNEYS AND URETERS: Kidneys are normal in size and morphology. There are multiple bilateral renal masses, some of which represent simple cysts, however others are indeterminate in attenuation. The largest in the upper pole of the right kidney measures 3.9 cm. There is a 2 mm cortical calcification within the left kidney, this may be related to a cyst. There is mild left pelvocaliectasis and perinephric stranding and mild left hydroureter upstream from 3 calculi within the distal left ureter, just proximal to the ureterovesical junction. These calculi measure 6 mm, 5 mm and 3 mm. BLADDER: Unremarkable. GASTROINTESTINAL TRACT: The small and large bowel are unremarkable. The appendix is unremarkable. ABDOMINAL WALL: No significant hernia is appreciated. LYMPH NODES: Normal. VASCULAR: Aorta is atherosclerotic but normal caliber. PELVIC VISCERA: Uterus and ovaries unremarkable. OSSEOUS STRUCTURES: No acute or suspicious osseous abnormalities. CT/CT abdomen pelvis wo con IMPRESSION: * There are 3 calculi within the distal LEFT ureter, just proximal to the ureterovesical junction measuring 6 mm, 5 mm and 3 mm, associated mild upstream hydroureter and pelvocaliectasis. * Multiple bilateral renal masses, some of which represent simple cysts, however others are indeterminate. Recommend renal ultrasound for further evaluation on a nonemergent basis. * Cholelithiasis. Fleischner guidelines were followed.
--- NOTE | ~2021-02-12 | FL_ITS ---
EXAMINATION: XR FLUOROSCOPY WITH IMAGES CLINICAL INFORMATION: Stone COMPARISON: Previous CT of the abdomen and pelvis and renal ultrasound from yesterday TECHNIQUE: Fluoroscopy performed by Dr. Erik Tapia. Fluoroscopy time: 16 seconds Dose: 7 mgy Images: 1 FINDINGS: Single image demonstrates a catheter projecting over the left ureter FL/FL guidance in OR IMPRESSION: Fluoroscopy guidance for left retrograde exam.
--- NOTE | ~2021-02-12 | US_ITS ---
EXAMINATION: US RETROPERITONEAL LIMITED (RENAL ONLY) CLINICAL INFORMATION: Renal masses seen on prior CT. COMPARISON: CT abdomen/pelvis performed earlier same date TECHNIQUE: Real-time imaging of the kidneys. FINDINGS: RIGHT KIDNEY: 10.7 x 5.3 x 5.7 cm (SAG x AP x TRV). The kidney is normal in size, contour, and echogenicity. Renal cortical thickness is normal. Minimal caliectasis. Multiple cysts identified, largest measuring 4.3 cm within the upper pole containing a thin septation. No solid or suspicious renal mass. No calculi. LEFT KIDNEY: 11.8 x 6.9 x 5.3 cm (SAG x AP x TRV). The kidney is normal in size, contour, and echogenicity. Renal cortical thickness is normal. No hydronephrosis. Multiple simple cysts identified, largest measures 3.1 cm within the upper pole. No solid or suspicious renal mass. No calculi. BLADDER: Bladder is normal. Stones identified within the distal right ureter as better seen on the prior CT. US/US renal BI IMPRESSION: * Bilateral benign appearing renal cysts (Bosniak 1 and Bosniak 2). These do not require additional workup for further characterization, or surveillance. * Distal right ureteral calculi as seen previously.
[2021-02-12 10:09] VITALS: BP 169/61; PULSE 71; RESP 19; TEMP 36.6; O2SAT 98; BMI 30.4
--- NOTE | 2021-02-12 11:09 | ED.ABDPAIN ---
HPI - Abdominal Pain General Chief Complaint: Abdominal Pain <JAMIE Franklin Last Filed: 02/12/21 14:06> Stated Complaint: constipation, abd pain, nausea <JAMIE Franklin Last Filed: 02/12/21 14:06> Time Seen by Provider: 02/12/21 11:08 <JAMIE Franklin - Last Filed: 02/12/21 14:06> Source: patient <JAMIE Franklin Last Filed: 02/12/21 14:06> Mode of arrival: ambulatory <JAMIE Franklin Last Filed: 02/12/21 14:06> Limitations: no limitations <JAMIE Franklin Last Filed: 02/12/21 14:06> History of Present Illness HPI narrative: 75-year-old female past medical history significant for hypertension, diabetes, previous stroke presents to the emergency department with complaints of left flank pain that radiates to the left abdomen, nausea and constipation X4 days . Patient states that she usually has a bowel movement every 3 days, however she has not had 1 for 4 days. Patient is passing gas. She tells me that the left flank pain is constant, dull in nature, and radiates to her left upper abdomen. She states that Tylenol makes it better, but she can not really tell me what makes it worse. Patient states she has not been able to eat in a few days, because it makes her very nauseous. Patient also tells me she has been urinating less than usual. She denies fevers, chills, dysuria, chest pain, vomiting, shortness of breath, diarrhea. She denies previous abdominal surgeries. <JAMIE Franklin Last Filed: 02/12/21 14:06> MD elicited complaint: abdominal pain (LUQ) and flank pain (Left) <JAMIE Franklin Last Filed: 02/12/21 14:06> Pertinent past history: none <JAMIE Franklin Last Filed: 02/12/21 14:06> Onset (ago): day(s) <JAMIE Franklin Last Filed: 02/12/21 14:06> Pain Consistency: constant <JAMIE Franklin Last Filed: 02/12/21 14:06> Location: L flank <JAMIE Franklin - Last Filed: 02/12/21 14:06> Severity: moderate <JAMIE Franklin Last Filed: 02/12/21 14:06> Quality: dull <JAMIE Franklin - Last Filed: 02/12/21 14:06> Radiation: LUQ <JAMIE Franklin - Last Filed: 02/12/21 14:06> Migration to: no migration <JAMIE Franklin Last Filed: 02/12/21 14:06> Exacerbating factors: nothing <JAMIE Franklin Last Filed: 02/12/21 14:06> Relieving factors: other (Tylenol ) <JAMIE Franklin Last Filed: 02/12/21 14:06> Associated symptoms: nausea <JAMIE Franklin Last Filed: 02/12/21 14:06> Treatments prior to arrival: other (Tylenol ) <JAMIE Franklin Last Filed: 02/12/21 14:06> Related Data Home Medications: Home Medications Medication Instructions Recorded Confirmed amlodipine 10 mg tablet 10 mg PO DAILY 08/02/20 02/12/21 metoprolol tartrate 50 mg tablet 50 mg PO BID 08/02/20 02/12/21 Previous Rx's Medication Instructions Recorded aspirin 81 mg tablet,delayed 81 mg PO DAILY #30 tab 03/02/20 release atorvastatin 80 mg tablet 80 mg PO BEDTIME #30 tab 03/02/20 clopidogrel 75 mg tablet 75 mg PO DAILY #30 tab 03/02/20 losartan 100 mg tablet 100 mg PO DAILY #90 tab 02/07/21 <JAMIE Franklin Last Filed: 02/12/21 14:06> Allergies/Adverse Reactions: Allergies Allergy/AdvReac Type Severity Reaction Status Date / Time amoxicillin Allergy Mild RASH Verified 02/07/21 08:28 <JAMIE Franklin Last Filed: 02/12/21 14:06> Review of Systems Review of Systems Constitutional : No Weight loss, No Fever, No Chills, No Fatigue, No Malaise ENT/Mouth : No sore throat, No Rhinorrhea Eyes: No Eye Pain, No Swelling, No Redness Cardiovascular : No Chest Pain, No SOB, No Dyspnea on Exertion, No Orthopnea, No Edema, No Palpitations Respiratory : No Cough, No Sputum, No Wheezing Gastrointestinal : + Nausea, No Vomiting, No Diarrhea, No Constipation, + abdominal Pain, No Hematochezia, No Melena Genitourinary : No Dysuria, No Urinary Frequency, No Hematuria, Musculoskeletal : No joint pain, No Myalgias, No Joint Swelling, + flank pain Skin : No Skin Lesions, No rash Neuro : No Weakness, No Numbness, No Dizziness, No Headache All other systems reviewed and are negative <JAMIE Franklin - Last Filed: 02/12/21 14:06> Physical Exam Vital Signs: Vital Signs: Last Vital Signs Temp 98.0 F 02/12/21 13:50 Pulse 72 02/12/21 13:50 Resp 18 02/12/21 13:50 BP 125/47 L 02/12/21 13:50 Pulse Ox 97 02/12/21 13:50 Body Mass Index 30.4 <JAMIE Franklin - Last Filed: 02/12/21 14:06> Vital Signs: Last Vital Signs Temp 98.0 F 02/12/21 13:50 Pulse 72 02/12/21 13:50 Resp 18 02/12/21 13:50 BP 125/47 L 02/12/21 13:50 Pulse Ox 97 02/12/21 13:50 Body Mass Index 30.4 <JAMIE Dodd - Last Filed: 02/12/21 15:45> Appearance: Alert.? Oriented X3.? No acute distress.? Head: Normocephalic, atraumatic, no step-offs or deformities Eyes: Pupils equal, round and reactive to light.? ENT: Pharynx normal.? Neck: Normal inspection.? Neck supple.? CVS: Normal heart rate and rhythm.? Pulses normal.? Respiratory: No respiratory distress.? Breath sounds normal.? Abdomen: Soft and + tender to LUQ + distended Normoactive bowel sounds.? Skin: Skin warm and dry.? Normal skin color.? Normal skin turgor.? Extremities: No lower extremity edema.? No calf ttp. 5/5 strength to bilateral upper and lower extremities Back: No midline tenderness, no C-spine tenderness, full range of motion, + mild CVA tenderness to left Neuro: Oriented X 3.? No motor deficit.? No sensory deficit. <JAMIE Franklin - Last Filed: 02/12/21 14:06> Course Course Course Narrative: patient seen and examined - agree with assessment and plan <JAMIE Dodd - Last Filed: 02/12/21 15:45> Reevaluation(s) Reevaluation #1: CT of abdomen and pelvis shows 3 renal stones with the distal left ureter measuring 6 mm, 5 mm and 3 mm with mild upstream hydroureter and pelvicocaliectasis. It also shows b/l renal masses which represents simple cysts, however others are indeterminate. For this reason a bilateral renal ultrasound will be obtained at this time. Urine is clean. BUN and creatinine noted to be elevated, not patient's baseline. potassium is noted to be 5.2. She will be hydrated for this. CBC shows a slight leukocytosis likely reactive secondary to inflammation. Covid negative. At this time medications for constipation and pain will be ordred as well as a one time dose of decadron. US b/l renal pending. <JAMIE Franklin - Last Filed: 02/12/21 14:06> Time: 12:19 <JAMIE Franklin - Last Filed: 02/12/21 14:06> Reevaluation #2: Spoke to Dr. Tapia who would like the patient admitted as she will likely require a procedure. He would like the patient NPO after midnight. Plan at this time is to reach out to the hospitalist for admission <JAMIE Franklin - Last Filed: 02/12/21 14:06> Time: 13:54 <JAMIE Franklin Last Filed: 02/12/21 14:06> Reevaluation #3: US benign. <JAMIE Franklin - Last Filed: 02/12/21 14:06> Time: 13:58 <JAMIE Franklin - Last Filed: 02/12/21 14:06> MDM - Abdominal Pain MDM Narrative Medical decision making narrative: 1111 75-year-old female past medical history significant for previous stroke, diabetes, hypertension presents to the emergency department with left flank pain that radiates to the left upper quadrant that is dull in nature, and constant, and nausea x4 days. Patient denies previous abdominal surgeries. She states she is still passing flatus. She also reports decreased urinary stream. Denies chest pain, fevers, chills, vomiting, shortness of breath, weakness. Upon physical examination patient is sitting comfortably on the stretcher in no acute distress. S1-S2 appreciated, ? systolic murmur, Lungs are clear to auscultation bilaterally. Abdomen is soft, slightly distended, with pain to palpation to the left upper quadrant. Normal active bowel sounds are noted. There is positive CVA tenderness the left flank. 5/5 strength upper and lower extremities. No focal neuro deficits. Plan at this time is to obtain basic labs, COVID, magnesium, CT of the abdomen and pelvis with no contrast. UA. She will be given fluids and Zofran. <JAMIE Franklin - Last Filed: 02/12/21 14:06> Medical Records Attestation: I reviewed the patient's medical records. <JAMIE Franklin - Last Filed: 02/12/21 14:06> Lab Data Attestation: I reviewed the patient's lab results. <JAMIE Franklin - Last Filed: 02/12/21 14:06> Result diagrams: : 02/12/21 11:31 02/12/21 11:31 <JAMIE Franklin - Last Filed: 02/12/21 14:06> Labs: Lab Results 02/12/21 02/12/21 02/12/21 Range/Units 11:31 11:31 11:31 WBC 12.3 H (4.8-10.8) X10*3/uL RBC 4.36 (4.20-5.50) X10*6/uL Hgb 13.8 (12.0-16.0) g/dl Hct 41.1 (37.0-47.0) % MCV 94.3 (80.0-98.0) fL MCH 31.7 (27.0-33.0) pg MCHC 33.6 (31.0-35.0) g/dl RDW 13.9 (11.0-16.0) % Plt Count 227 (160-400) X10*3/uL MPV 10.6 (9.4-12.3) fL Immature Gran % (Auto) 0.2 (0.0-0.4) % Neut % (Auto) 78.5 H (45-73) % Lymph % (Auto) 11.8 L (20-40) % [place] % (Auto) 8.4 (2-11) % Eos % (Auto) 0.7 (0-4) % Baso % (Auto) 0.4 (0-2) % Lymph # (Auto) 1.5 (1.2-4.9) X10*3/uL [place] # (Auto) 1.0 (0.1-1.2) X10*3/uL Eos # (Auto) 0.1 (0.0-0.4) X10*3/uL Baso # (Auto) 0.1 (0.0-0.2) X10*3/uL Abs Immat Gran (auto) 0.03 (0.00-0.03) X10*3/uL Absolute Neuts (auto) 9.7 H (2.0-8.3) x10*3/uL Absolute Nucleated RBC 0.000 (0.0-0.012) X10*3/uL Nucleated RBC % (auto) 0.0 (0.0-0.2) /100WBC Sodium 132 L (135-145) mmol/L Potassium 5.2 H (3.3-5.1) mmol/L Chloride 100 (96-108) mmol/L Carbon Dioxide 22 (22-29) mmol/L Anion Gap 15 (12-20) BUN 18 H (9-16) mg/dL Creatinine 1.47 H (0.5-1.4) mg/dL Estim Creat Clear Calc 36.2 Estimated GFR 35 Random Glucose 147 H (60-115) mg/dL Calcium 9.5 D (8.4-10.2) mg/dL Magnesium 1.9 (1.6-2.6) mg/dL Total Bilirubin 0.7 (0.0-1.0) mg/dL AST 23 D (5-31) U/L ALT 15 (0-31) U/L Alkaline Phosphatase 48 (39-117) U/L Total Protein 7.1 (6.5-8.0) g/dL Albumin 3.9 (3.5-5.0) g/dL Urine Color Urine Appearance Urine pH (5.0-8.0) Ur Specific [place] (1.005-1.025) Urine Protein (NEG-TRACE) MG/DL Urine Glucose (UA) (NEG) MG/DL Urine Ketones (NEG) MG/DL Urine Blood (NEG) Urine Nitrite (NEG) Ur Leukocyte Esterase (NEG) Urine RBC (0) /HPF Urine WBC (0-4) /HPF Ur Squamous Epith Cells /LPF Ur Renal Epithelial Cell /LPF Urine Bacteria /LPF COVID-19 ([facility]) Negative (Negative) COVID-19 Clin Com See Note 02/12/21 Range/Units 11:46 WBC (4.8-10.8) X10*3/uL RBC (4.20-5.50) X10*6/uL Hgb (12.0-16.0) g/dl Hct (37.0-47.0) % MCV (80.0-98.0) fL MCH (27.0-33.0) pg MCHC (31.0-35.0) g/dl RDW (11.0-16.0) % Plt Count (160-400) X10*3/uL MPV (9.4-12.3) fL Immature Gran % (Auto) (0.0-0.4) % Neut % (Auto) (45-73) % Lymph % (Auto) (20-40) % [place] % (Auto) (2-11) % Eos % (Auto) (0-4) % Baso % (Auto) (0-2) % Lymph # (Auto) (1.2-4.9) X10*3/uL [place] # (Auto) (0.1-1.2) X10*3/uL Eos # (Auto) (0.0-0.4) X10*3/uL Baso # (Auto) (0.0-0.2) X10*3/uL Abs Immat Gran (auto) (0.00-0.03) X10*3/uL Absolute Neuts (auto) (2.0-8.3) x10*3/uL Absolute Nucleated RBC (0.0-0.012) X10*3/uL Nucleated RBC % (auto) (0.0-0.2) /100WBC Sodium (135-145) mmol/L Potassium (3.3-5.1) mmol/L Chloride (96-108) mmol/L Carbon Dioxide (22-29) mmol/L Anion Gap (12-20) BUN (9-16) mg/dL Creatinine (0.5-1.4) mg/dL Estim Creat Clear Calc Estimated GFR Random Glucose (60-115) mg/dL Calcium (8.4-10.2) mg/dL Magnesium (1.6-2.6) mg/dL Total Bilirubin (0.0-1.0) mg/dL AST (5-31) U/L ALT (0-31) U/L Alkaline Phosphatase (39-117) U/L Total Protein (6.5-8.0) g/dL Albumin (3.5-5.0) g/dL Urine Color YELLOW Urine Appearance CLEAR Urine pH 6.0 (5.0-8.0) Ur Specific [place] <= 1.005 (1.005-1.025) Urine Protein TRACE (NEG-TRACE) MG/DL Urine Glucose (UA) NEG (NEG) MG/DL Urine Ketones NEG (NEG) MG/DL Urine Blood TRACE (NEG) Urine Nitrite NEG (NEG) Ur Leukocyte Esterase NEG (NEG) Urine RBC 0-2 (0) /HPF Urine WBC 0-2 (0-4) /HPF Ur Squamous Epith Cells TRACE /LPF Ur Renal Epithelial Cell 1+ /LPF Urine Bacteria TRACE /LPF COVID-19 ([facility]) (Negative) COVID-19 Clin Com <JAMIE Franklin - Last Filed: 02/12/21 14:06> Lab Results 02/12/21 02/12/21 02/12/21 Range/Units 11:31 11:31 11:31 WBC 12.3 H (4.8-10.8) X10*3/uL RBC 4.36 (4.20-5.50) X10*6/uL Hgb 13.8 (12.0-16.0) g/dl Hct 41.1 (37.0-47.0) % MCV 94.3 (80.0-98.0) fL MCH 31.7 (27.0-33.0) pg MCHC 33.6 (31.0-35.0) g/dl RDW 13.9 (11.0-16.0) % Plt Count 227 (160-400) X10*3/uL MPV 10.6 (9.4-12.3) fL Immature Gran % (Auto) 0.2 (0.0-0.4) % Neut % (Auto) 78.5 H (45-73) % Lymph % (Auto) 11.8 L (20-40) % [place] % (Auto) 8.4 (2-11) % Eos % (Auto) 0.7 (0-4) % Baso % (Auto) 0.4 (0-2) % Lymph # (Auto) 1.5 (1.2-4.9) X10*3/uL [place] # (Auto) 1.0 (0.1-1.2) X10*3/uL Eos # (Auto) 0.1 (0.0-0.4) X10*3/uL Baso # (Auto) 0.1 (0.0-0.2) X10*3/uL Abs Immat Gran (auto) 0.03 (0.00-0.03) X10*3/uL Absolute Neuts (auto) 9.7 H (2.0-8.3) x10*3/uL Absolute Nucleated RBC 0.000 (0.0-0.012) X10*3/uL Nucleated RBC % (auto) 0.0 (0.0-0.2) /100WBC Sodium 132 L (135-145) mmol/L Potassium 5.2 H (3.3-5.1) mmol/L Chloride 100 (96-108) mmol/L Carbon Dioxide 22 (22-29) mmol/L Anion Gap 15 (12-20) BUN 18 H (9-16) mg/dL Creatinine 1.47 H (0.5-1.4) mg/dL Estim Creat Clear Calc 36.2 Estimated GFR 35 Random Glucose 147 H (60-115) mg/dL Calcium 9.5 D (8.4-10.2) mg/dL Magnesium 1.9 (1.6-2.6) mg/dL Total Bilirubin 0.7 (0.0-1.0) mg/dL AST 23 D (5-31) U/L ALT 15 (0-31) U/L Alkaline Phosphatase 48 (39-117) U/L Total Protein 7.1 (6.5-8.0) g/dL Albumin 3.9 (3.5-5.0) g/dL Urine Color Urine Appearance Urine pH (5.0-8.0) Ur Specific [place] (1.005-1.025) Urine Protein (NEG-TRACE) MG/DL Urine Glucose (UA) (NEG) MG/DL Urine Ketones (NEG) MG/DL Urine Blood (NEG) Urine Nitrite (NEG) Ur Leukocyte Esterase (NEG) Urine RBC (0) /HPF Urine WBC (0-4) /HPF Ur Squamous Epith Cells /LPF Ur Renal Epithelial Cell /LPF Urine Bacteria /LPF COVID-19 ([facility]) Negative (Negative) COVID-19 Clin Com See Note 02/12/21 Range/Units 11:46 WBC (4.8-10.8) X10*3/uL RBC (4.20-5.50) X10*6/uL Hgb (12.0-16.0) g/dl Hct (37.0-47.0) % MCV (80.0-98.0) fL MCH (27.0-33.0) pg MCHC (31.0-35.0) g/dl RDW (11.0-16.0) % Plt Count (160-400) X10*3/uL MPV (9.4-12.3) fL Immature Gran % (Auto) (0.0-0.4) % Neut % (Auto) (45-73) % Lymph % (Auto) (20-40) % [place] % (Auto) (2-11) % Eos % (Auto) (0-4) % Baso % (Auto) (0-2) % Lymph # (Auto) (1.2-4.9) X10*3/uL [place] # (Auto) (0.1-1.2) X10*3/uL Eos # (Auto) (0.0-0.4) X10*3/uL Baso # (Auto) (0.0-0.2) X10*3/uL Abs Immat Gran (auto) (0.00-0.03) X10*3/uL Absolute Neuts (auto) (2.0-8.3) x10*3/uL Absolute Nucleated RBC (0.0-0.012) X10*3/uL Nucleated RBC % (auto) (0.0-0.2) /100WBC Sodium (135-145) mmol/L Potassium (3.3-5.1) mmol/L Chloride (96-108) mmol/L Carbon Dioxide (22-29) mmol/L Anion Gap (12-20) BUN (9-16) mg/dL Creatinine (0.5-1.4) mg/dL Estim Creat Clear Calc Estimated GFR Random Glucose (60-115) mg/dL Calcium (8.4-10.2) mg/dL Magnesium (1.6-2.6) mg/dL Total Bilirubin (0.0-1.0) mg/dL AST (5-31) U/L ALT (0-31) U/L Alkaline Phosphatase (39-117) U/L Total Protein (6.5-8.0) g/dL Albumin (3.5-5.0) g/dL Urine Color YELLOW Urine Appearance CLEAR Urine pH 6.0 (5.0-8.0) Ur Specific [place] <= 1.005 (1.005-1.025) Urine Protein TRACE (NEG-TRACE) MG/DL Urine Glucose (UA) NEG (NEG) MG/DL Urine Ketones NEG (NEG) MG/DL Urine Blood TRACE (NEG) Urine Nitrite NEG (NEG) Ur Leukocyte Esterase NEG (NEG) Urine RBC 0-2 (0) /HPF Urine WBC 0-2 (0-4) /HPF Ur Squamous Epith Cells TRACE /LPF Ur Renal Epithelial Cell 1+ /LPF Urine Bacteria TRACE /LPF COVID-19 ([facility]) (Negative) COVID-19 Clin Com <JAMIE Dodd - Last Filed: 02/12/21 15:45> Imaging Data CT abdomen: Attestation: I personally reviewed and interpreted this imaging study as follows: <JAMIE Franklin - Last Filed: 02/12/21 14:06> Radiologist's impression: CT/CT abdomen pelvis wo con IMPRESSION: *? There are 3 calculi within the distal LEFT ureter, just proximal to the ureterovesical junction measuring 6 mm, 5 mm and 3 mm, associated mild upstream hydroureter and pelvocaliectasis. *? Multiple bilateral renal masses, some of which represent simple cysts, however others are indeterminate. Recommend renal ultrasound for further evaluation on a nonemergent basis. *? Cholelithiasis.? ? Fleischner guidelines were followed. <JAMIE Franklin - Last Filed: 02/12/21 14:06> B/L renal US: Attestation: I personally reviewed and interpreted this imaging study as follows: <JAMIE Franklin - Last Filed: 02/12/21 14:06> Radiologist's impression: US/US renal BI IMPRESSION: *? Bilateral benign appearing renal cysts (Bosniak 1 and Bosniak 2). These do not require additional workup for further characterization, or surveillance. *? Distal right ureteral calculi as seen previously. <JAMIE Franklin - Last Filed: 02/12/21 14:06> Critical Care Time Critical Care Time Critical Care Time: No <JAMIE Franklin - Last Filed: 02/12/21 14:06> Discharge Plan Discharge Clinical Impression: Calculus of kidney, Abdominal pain, Constipation, Acute kidney injury <JAMIE Franklin - Last Filed: 02/12/21 14:06> Patient Disposition: Admitted As Inpatient <JAMIE Franklin - Last Filed: 02/12/21 14:06> [facility] Past Medical History Attestation statement: The following information was validated with the patient. <JAMIE Franklin - Last Filed: 02/12/21 14:06> Source: old records reviewed and nursing notes reviewed <JAMIE Franklin - Last Filed: 02/12/21 14:06> Medical History: Medical History Abnormal myocardial perfusion study Arthritis Atherosclerotic cardiovascular disease CVA (cerebral vascular accident) Depression Diabetes Essential hypertension Expressive aphasia Hx of cardiac murmur Hyperlipidemia Hypertension Lab test negative for COVID-19 virus Other and unspecified hyperlipidemia Smoking Type 2 diabetes mellitus with unspecified complications Wears partial dentures <JAMIE Franklin - Last Filed: 02/12/21 14:06> Surgical History: Surgical History History of excision of pilonidal cyst Hx of dilation and curettage <JAMIE Franklin - Last Filed: 02/12/21 14:06> Family History Family History: Family History (Updated 02/12/21 @ 14:31 by JAMIE Decker) Father Heart attack Mother Heart attack <JAMIE Franklin - Last Filed: 02/12/21 14:06> Social History Social History: Social History Household Members: Spouse Housing: House 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
[2021-02-12 11:37] LABS: MANUAL DIFF FLAG NO
--- NOTE | 2021-02-12 11:40 | PC.NURSE ---
iv inserted labs drawn
[2021-02-12 11:41] LABS: Basophils Absolute Auto 0.1 X10*3/uL (0.0-0.2); Basophils Percent Auto 0.4 % (0-2); Eosinophils Absolute Auto 0.1 X10*3/uL (0.0-0.4); Eosinophils Percent Auto 0.7 % (0-4); Hematocrit 41.1 % (37.0-47.0); Hemoglobin 13.8 g/dl (12.0-16.0); Imm Gran Abs Auto 0.03 X10*3/uL (0.00-0.03); Imm Gran Pct Auto 0.2 % (0.0-0.4); Lymphocytes Absolute Auto 1.5 X10*3/uL (1.2-4.9); Lymphocytes Percent Auto 11.8 % (20-40); Mean Corpuscular HGB Conc 33.6 g/dl (31.0-35.0); Mean Corpuscular Hemoglobin 31.7 pg (27.0-33.0); Mean Corpuscular Volume 94.3 fL (80.0-98.0); Mean Platelet Volume 10.6 fL (9.4-12.3); Monocytes Percent Auto 8.4 % (2-11); Neutrophils Absolute Auto 9.7 x10*3/uL (2.0-8.3); Neutrophils Percent Auto 78.5 % (45-73); Platelet Count 227 X10*3/uL (160-400); Red Blood Count 4.36 X10*6/uL (4.20-5.50); Red Cell Distribution Width 13.9 % (11.0-16.0); White Blood Count 12.3 X10*3/uL (4.8-10.8)
[2021-02-12] MEDS: 0.9 % Sodium Chloride 1,000 ML 999 ML IV ×2 (11:50→13:52)
--- NOTE | 2021-02-12 11:50 | PC.NURSE ---
pt ambulated with steady gait to bathroom, urine obtained
[2021-02-12 11:52] LABS: Appearance Urine CLEAR; Color Urine YELLOW; Glucose Urine UA NEG (NEG); Leukocyte Esterase Urine NEG (NEG); Nitrite Urine NEG (NEG); Specific Gravity - Urine <= 1.005 (1.005-1.025); UACC Culture Trigger NO; Urine Blood TRACE (NEG); Urine Ketones NEG (NEG); Urine Protein TRACE MG/DL (NEG-TRACE)
--- NOTE | 2021-02-12 11:55 | PC.NURSE ---
patient a&ox3, family at bedside, ivf running per order, pt refused zofran at this time.
[2021-02-12 11:56] LABS: Alanine Aminotransferase 15 U/L (0-31); Albumin Level 3.9 g/dL (3.5-5.0); Alkaline Phosphatase 48 U/L (39-117); Anion Gap 15 (12-20); Aspartate Amino Transferase 23 U/L (5-31); Bilirubin Total 0.7 mg/dL (0.0-1.0); Blood Urea Nitrogen 18 mg/dL (9-16); Calcium 9.5 mg/dL (8.4-10.2); Carbon Dioxide 22 mmol/L (22-29); Chloride 100 mmol/L (96-108); Creatinine Clr Calc Pharmacy 36.2; Estimated Glomerular Filt Rate 35; Glucose Random 147 mg/dL (60-115); Magnesium 1.9 mg/dL (1.6-2.6); Potassium 5.2 mmol/L (3.3-5.1); Sodium 132 mmol/L (135-145); Total Protein 7.1 g/dL (6.5-8.0)
[2021-02-12 11:57] LABS: COVID-19 Test Negative (Negative)
[2021-02-12 12:12] LABS: RBC Urine 0-2 /HPF (0); Squamous Epithelial Cell Urine TRACE /LPF; WBC Urine 0-2 /HPF (0-4)
[2021-02-12 12:13] LABS: Bacteria Urine TRACE /LPF; Renal Epithelial Cells Urine 1+ /LPF
[2021-02-12] MEDS: Tamsulosin HCL 0.4 MG CAPSULE PO (12:48)
[2021-02-12] MEDS: Docusate Sodium 100 MG CAPSULE PO (12:48)
[2021-02-12] MEDS: polyethylene glycoL 3350 17 GM POWD.PACK PO (12:48)
[2021-02-12] MEDS: dexAMETHasone sod phosphate 4 MG/ML VIAL 6 MG IVPUSH (12:49)
[2021-02-12] MEDS: Morphine Sulfate 4 MG/ML CARTRIDGE IVPUSH (12:49)
--- NOTE | 2021-02-12 13:05 | PC.NURSE ---
patient a&ox3, pt medicated per order, c/o 09/01 lt nick pain- medicated with morphine for pain, will continue to monitor.
[2021-02-12 13:50] VITALS: BP 125/47; PULSE 72; RESP 18; TEMP 36.7; O2SAT 97
--- NOTE | 2021-02-12 13:55 | PC.NURSE ---
patient a&ox3, vss, ivf hung per order, pt assisted to bedside commode, will continue to monitor.
--- NOTE | 2021-02-12 14:24 | PM.IMHP ---
History of Present Illness Date of Service: 02/12/21 <JAMIE Decker - Last Filed: 02/12/21 15:13> Attending physician on admission: Leonardo De Leon <JAMIE Decker - Last Filed: 02/12/21 15:13> Chief Complaint: left flank pain <JAMIE Decker - Last Filed: 02/12/21 15:13> This is a 75 female multiple medical issues who presents to the emergency department left-sided flank pain. Her pain initially began on Saturday afternoon. It radiates around to the front of her abdomen. It is associated with nausea but no vomiting. She has had decreased appetite. She denies any fever or chills. She initially thought that her pain was related to constipation but when the pain persisted she presented to the ED for evaluation. She underwent CT scan of the abdomen which revealed 3 renal calculi in the distal left ureter measuring 6 mm, 5 mm and 3 mm with associated mild upstream hydroureter. Case was discussed with Dr. Tapia of Urology who recommended admitting the patient <JAMIE Decker - Last Filed: 02/12/21 15:13> Review of Systems Review of Systems: Yes all other systems are reviewed and are negative <JAMIE Decker Last Filed: 02/12/21 15:13> Constitutional: Constitutional: Denies chills and Denies fever(s) <JAMIE Decker - Last Filed: 02/12/21 15:13> Cardiovascular: Cardiovascular: Denies chest pain <JAMIE Decker Last Filed: 02/12/21 15:13> Respiratory: Respiratory: Denies cough <JAMIE Decker Last Filed: 02/12/21 15:13> Gastrointestinal: Gastrointestinal: Reports abdominal pain, Denies diarrhea, Reports nausea and Denies vomiting <JAMIE Decker Last Filed: 02/12/21 15:13> [facility] Medical History: Medical History (Updated 02/12/21 @ 17:23 by Sis Orozco RN) Abnormal myocardial perfusion study Arthritis Atherosclerotic cardiovascular disease COVID-19 CVA (cerebral vascular accident) Depression Diabetes Essential hypertension Expressive aphasia Hx of cardiac murmur Hyperlipidemia Hypertension Lab test negative for COVID-19 virus Other and unspecified hyperlipidemia Smoking Type 2 diabetes mellitus with unspecified complications Wears partial dentures <JAMIE Dekcer - Last Filed: 02/12/21 15:13> Functional capacity: independent ambulation <JAMIE Decker - Last Filed: 02/12/21 15:13> Family History: Family History (Updated 02/12/21 @ 14:31 by JAMIE Decker) Father Heart attack Mother Heart attack <JAMIE Decker - Last Filed: 02/12/21 15:13> Pertinent family history: . <JAMIE Decker - Last Filed: 02/12/21 15:13> Surgical History: Surgical History History of excision of pilonidal cyst Hx of dilation and curettage <JAMIE Decker - Last Filed: 02/12/21 15:13> Social History: Social History Household Members: None Housing: House Are you a primary medicare contact specialist to a significant other at home: Yes () Do you presently have visiting nurse or other home services: No Alcohol intake: never Patient Tobacco Use Status: Current everyday Tobacco user Tobacco use type: Cigarette Cigarette Packs Per Day: 1 Cigarettes Per Day: 20.0 Years Smoked: 62 Smoked in Last 30 Days: Yes Patient Interested in Nicotine Replacement: No Patient Given Instructions on How to Stop Smoking: Yes Date Education Initiated: 02/12/21 Second Hand Smoke Exposure: No Use of substances other than those prescribed or required for medical reasons: No Currently Displaying Signs/Symptoms of Drug Intoxication Withdrawal: No Have you been hit, kicked, punched, or otherwise hurt by someone within the past year? If so, by whom?: No Do you feel safe in your current relationship?: Yes Is there a partner from a previous relationship who is making you feel unsafe now?: No Are you made to feel afraid or neglected: No Advance Directives: No Do you have thoughts of harming others: None Do you have a plan to hurt others: No Plan Recently lost weight without trying: No Nutrition Risks: No Nutritional Risk Patient : No : No Poor oral hygiene: No service: No Current occupational status: retired <JAMIE Decker - Last Filed: 02/12/21 15:13> Meds Allergies/Adverse reactions: Allergies Allergy/AdvReac Type Severity Reaction Status Date / Time amoxicillin Allergy Mild RASH Verified 02/07/21 08:28 <JAMIE Decker - Last Filed: 02/12/21 15:13> Active Medications: Current Medications Acetaminophen (Acetaminophen 325 Mg Tablet) 650 mg PO Q6H PRN PRN Reason: Pain, Mild (Pain Scale 1-3) Docusate Sodium (Docusate Sodium 100 Mg Capsule) 100 mg PO DAILY PRN PRN Reason: Constipation Sodium Chloride (Ns) 1,000 mls @ 999 mls/hr IV .Q1H1M [facility] Stop: 02/12/21 14:45 Last Admin: 02/12/21 13:52 Dose: 999 mls/hr Documented by: Morphine Sulfate (Morphine Sulfate 4 Mg/Ml Cartridge) 2 mg IVPUSH Q4H PRN; Protocol PRN Reason: Pain, Severe (Pain Scale 7-10) Ondansetron HCl (Ondansetron Hcl 4 Mg/2 Ml Vial) 4 mg IVPUSH Q8H PRN PRN Reason: Nausea and Vomiting Oxycodone HCl (Oxycodone Hcl Immed Release 5 Mg Tablet) 5 mg PO Q6H PRN PRN Reason: Pain, Moderate (Pain Scale 4-6 Pharmacy Consult (Consult Rx Perform Med Rec) 1 each MISCELLANE ONCE PRN PRN Reason: Consult order Sodium Chloride (0.9 % Sodium Chloride Flush 3 Ml Syringe) 3 ml IVFLUSH [facility] <JAMIE Decker - Last Filed: 02/12/21 15:13> Home medications: Home Medications Medication Instructions Recorded Confirmed Last Taken Type amlodipine 10 mg tablet 10 mg PO DAILY 08/02/20 02/12/21 Unknown History metoprolol tartrate 50 mg tablet 50 mg PO BID 08/02/20 02/12/21 Unknown History <JAMIE Decker - Last Filed: 02/12/21 15:13> Physical Exam Vital Signs and Narrative: Vital Signs: Last Vital Signs Temp 98.0 F 02/12/21 13:50 Pulse 72 02/12/21 13:50 Resp 18 02/12/21 13:50 BP 125/47 L 02/12/21 13:50 Pulse Ox 97 02/12/21 13:50 Body Mass Index 30.4 <JAMIE Decker - Last Filed: 02/12/21 15:13> Const: Nutritional Appearance: well nourished <JAMIE Decker - Last Filed: 02/12/21 15:13> Orientation/consciousness: patient oriented x3 <JAMIE Decker - Last Filed: 02/12/21 15:13> HENMT: Head: Yes normocephalic and Yes atraumatic <JAMIE Decker - Last Filed: 02/12/21 15:13> Eyes: Sclerae: sclerae normal <JAMIE Decker - Last Filed: 02/12/21 15:13> Resp: Effort & Inspection: normal respiratory effort and no respiratory distress <JAMIE Decker - Last Filed: 02/12/21 15:13> Cardio: Rate: regular rate <JAMIE Decker - Last Filed: 02/12/21 15:13> Rhythm: regular rhythm <JAMIE Decker - Last Filed: 02/12/21 15:13> GI: Inspection: No distended <JAMIE Decker - Last Filed: 02/12/21 15:13> Palpation (GI): Soft to palpation and nontender <JAMIE Decker - Last Filed: 02/12/21 15:13> : General: Yes no CVA tenderness <JAMIE Decker - Last Filed: 02/12/21 15:13> Back/Spine/Pelvis: Back: no CVA tenderness <JAMIE Decker - Last Filed: 02/12/21 15:13> Neuro: General: patient oriented x3 <JAMIE Decker - Last Filed: 02/12/21 15:13> Cranial nerves: Yes CN's II-XII intact bilaterally and Yes Bilaterally intact EOM present <JAMIE Decker - Last Filed: 02/12/21 15:13> Extrem: General: Yes no pedal edema <JAMIE Decker - Last Filed: 02/12/21 15:13> Results Labs CBC and Chem 7: : 02/13/21 05:33 02/13/21 05:33 <JAMIE Decker - Last Filed: 02/12/21 15:13> Labs: Laboratory Results - last 24 hr 02/12/21 02/12/21 02/12/21 11:31 11:31 11:31 MCV 94.3 MCH 31.7 MCHC 33.6 RDW 13.9 Plt Count 227 MPV 10.6 Immature Gran % (Auto) 0.2 Neut % (Auto) 78.5 H Lymph % (Auto) 11.8 L [place] % (Auto) 8.4 Eos % (Auto) 0.7 Baso % (Auto) 0.4 Lymph # (Auto) 1.5 [place] # (Auto) 1.0 Eos # (Auto) 0.1 Baso # (Auto) 0.1 Abs Immat Gran (auto) 0.03 Absolute Neuts (auto) 9.7 H Absolute Nucleated RBC 0.000 Nucleated RBC % (auto) 0.0 Anion Gap 15 Estim Creat Clear Calc 36.2 Estimated GFR 35 Random Glucose 147 H Calcium 9.5 D Magnesium 1.9 Total Bilirubin 0.7 AST 23 D ALT 15 Alkaline Phosphatase 48 Total Protein 7.1 Albumin 3.9 Urine Color Urine Appearance Urine pH Ur Specific [place] Urine Protein Urine Glucose (UA) Urine Ketones Urine Blood Urine Nitrite Ur Leukocyte Esterase Urine RBC Urine WBC Ur Squamous Epith Cells Ur Renal Epithelial Cell Urine Bacteria COVID-19 (JEREMY) Negative COVID-19 Clin Com See Note 02/12/21 11:46 MCV MCH MCHC RDW Plt Count MPV Immature Gran % (Auto) Neut % (Auto) Lymph % (Auto) [place] % (Auto) Eos % (Auto) Baso % (Auto) Lymph # (Auto) [place] # (Auto) Eos # (Auto) Baso # (Auto) Abs Immat Gran (auto) Absolute Neuts (auto) Absolute Nucleated RBC Nucleated RBC % (auto) Anion Gap Estim Creat Clear Calc Estimated GFR Random Glucose Calcium Magnesium Total Bilirubin AST ALT Alkaline Phosphatase Total Protein Albumin Urine Color YELLOW Urine Appearance CLEAR Urine pH 6.0 Ur Specific [place] <= 1.005 Urine Protein TRACE Urine Glucose (UA) NEG Urine Ketones NEG Urine Blood TRACE Urine Nitrite NEG Ur Leukocyte Esterase NEG Urine RBC 0-2 Urine WBC 0-2 Ur Squamous Epith Cells TRACE Ur Renal Epithelial Cell 1+ Urine Bacteria TRACE COVID-19 (JEREMY) COVID-19 Clin Com <JAMIE Decker - Last Filed: 02/12/21 15:13> Imaging Radiologist's Impressions: Impressions Abdomen/Pelvis CT 02/12/21 11:11 IMPRESSION: * There are 3 calculi within the distal LEFT ureter, just proximal to the ureterovesical junction measuring 6 mm, 5 mm and 3 mm, associated mild upstream hydroureter and pelvocaliectasis. * Multiple bilateral renal masses, some of which represent simple cysts, however others are indeterminate. Recommend renal ultrasound for further evaluation on a nonemergent basis. * Cholelithiasis. Fleischner guidelines were followed. Renal Ultrasound 02/12/21 12:07 IMPRESSION: * Bilateral benign appearing renal cysts (Bosniak 1 and Bosniak 2). These do not require additional workup for further characterization, or surveillance. * Distal right ureteral calculi as seen previously. <JAMIE Decker - Last Filed: 02/12/21 15:13> Assessment and Plan (1) Calculus of kidney: Status: Acute <JAMIE Decker - Last Filed: 02/12/21 15:13> (2) Acute kidney injury: Status: Acute <JAMIE Decker - Last Filed: 02/12/21 15:13> This is a 75-year-old female with history carotid s/p L CEA, PVD, HTN, HLD, DM, tobacco dependence who presents to the ED with left flank pain found to have multiple renal calculi and ZURI. ZURI SCr 1.47 up from baseline around 0.87 r/t renal stones dose of losartan also increased 02/07 -hold Losartan -IVF -monitor renal function -pain management renal calculi with associated hydroureter urology consult NPO at midnight for likely intervention tomorrow Hyperkalemia r/t ZURI, use of ARB -hold losartan -follow BMP DM Diet controlled -SSI, POCs Hypertension Blood pressure controlled -continue norvasc, metoprolol PVD continue Statin hold ASA, plavix in anticipation for urologic procedure dvt ppx - SCDs code status - DNR/DNI Attending: Dr. Joiner <JAMIE Decker - Last Filed: 02/12/21 15:13> Quality Stroke Does the patient have a stroke diagnosis?: No <JAMIE Decker - Last Filed: 02/12/21 15:13> VTE Prior VTE?: No <JAMIE Decker - Last Filed: 02/12/21 15:13> VTE Risk Level:: Medical - moderate - high <JAMIE Decker - Last Filed: 02/12/21 15:13> VTE Device Contraindication: N/A - Device Ordered <JAMIE Decker - Last Filed: 02/12/21 15:13> VTE Drug Contraindication: Treatment Not Indicated <JAMIE Decker - Last Filed: 02/12/21 15:13>
--- NOTE | 2021-02-12 14:36 | PHA.MEDREC ---
Pharmacy Consult ? Medication Reconciliation Pharmacy has completed the medication reconciliation. current list matched fill history
--- NOTE | 2021-02-12 14:47 | PC.NURSE ---
called floor to give report, will call us back
[2021-02-12] MEDS: Lactated Ringers 1,000 ML 100 ML IVCONT (15:39)
[2021-02-12 16:00] VITALS: BP 133/61; PULSE 58; RESP 18; TEMP 36.9; O2SAT 96
--- NOTE | 2021-02-12 16:03 | PM.EVENT ---
Event Note Date of Service: 02/12/21 Event Note: the patient was seen and evaluated with JAMIE Jin. I agree with her note, assessment and plan with the following. A 75 years old lady with PMH of diabetes, CVA, HTN among others who presents to the hospital with left Inguinal pain. CT scan showed 3 renal calculi in the distal left ureter. Blood work consistent with acute kidney injury. Admitted for further evaluation and treatment. Acute kidney injury Secondary to obstructive stones Start gentle hydration Hold nephrotoxic medications Get urology consult Keep patient NPO post midnight Rest of evaluations by PA note.
[2021-02-12 16:40] LABS: Glucose, Whole Blood 220 mg/dL (60-115)
[2021-02-12] MEDS: Insulin Lispro 100 UNIT/ML 3 ML VIAL SUBCUT ×2 (17:04→20:43)
[2021-02-12 20:21] VITALS: BP 130/59; PULSE 58; RESP 18; TEMP 36.4; O2SAT 91
[2021-02-12 20:29] VITALS: BP 130/59; PULSE 63
[2021-02-12] MEDS: Metoprolol Tartrate 50 MG TABLET PO (20:29)
[2021-02-12] MEDS: Atorvastatin Calcium 80 MG TABLET PO (20:29)
[2021-02-12 20:38] LABS: Glucose, Whole Blood 229 mg/dL (60-115)
[2021-02-13] VITALS (10 sets, daily range): BP systolic 127–140; BP diastolic 49–60; PULSE 56–69; RESP 16–20; TEMP 36.1–37.1; O2SAT 93–99
[2021-02-13] MEDS: Morphine Sulfate 4 MG/ML CARTRIDGE 2 MG IVPUSH (00:44)
[2021-02-13 05:45] LABS: Hematocrit 36.7 % (37.0-47.0); Hemoglobin 12.2 g/dl (12.0-16.0); Mean Corpuscular HGB Conc 33.2 g/dl (31.0-35.0); Mean Corpuscular Hemoglobin 31.4 pg (27.0-33.0); Mean Corpuscular Volume 94.6 fL (80.0-98.0); Mean Platelet Volume 10.6 fL (9.4-12.3); Platelet Count 211 X10*3/uL (160-400); Red Blood Count 3.88 X10*6/uL (4.20-5.50); Red Cell Distribution Width 14.1 % (11.0-16.0); White Blood Count 16.9 X10*3/uL (4.8-10.8)
[2021-02-13 06:09] LABS: Anion Gap 13 (12-20); Blood Urea Nitrogen 25 mg/dL (9-16); Calcium 8.6 mg/dL (8.4-10.2); Carbon Dioxide 22 mmol/L (22-29); Chloride 106 mmol/L (96-108); Creatinine Clr Calc Pharmacy 37.5; Estimated Glomerular Filt Rate 36; Glucose Random 143 mg/dL (60-115); Potassium 4.9 mmol/L (3.3-5.1); Sodium 136 mmol/L (135-145)
[2021-02-13 07:30] LABS: Glucose, Whole Blood 141 mg/dL (60-115)
[2021-02-13] MEDS: amLODIPine Besylate 10 MG TABLET PO (07:34)
[2021-02-13] MEDS: Lactated Ringers 1,000 ML 100 ML IVCONT (07:40)
--- NOTE | 2021-02-13 09:36 | HO.PM.IMPN ---
Subjective Subjective Date of Service: 02/13/21 Interval History: the patient was seen and evaluated this morning Laying in bed, feels comfortable overall Pain has improved since last night Denies any fever, chills or shortness of breath No reported other overnight events. Systemic review: No fever, chills or weakness No chest pain, palpitation No shortness of breath or coughing No abdominal pain, nausea or vomiting No urinary symptoms No any rash or wounds Physical Exam Vital Signs: Vital Signs: Last Vital Signs Temp 97.4 F 02/13/21 07:13 Pulse 56 02/13/21 07:13 Resp 16 02/13/21 07:13 BP 133/59 L 02/13/21 07:13 Pulse Ox 93 02/13/21 07:13 Body Mass Index 30.4 Const: Other: Constitutional : Alert, oriented, not in distress Neck : Normal inspection, Supple Cardiovascular : RRR, S1 S2, no lower extremity edema Respiratory : Good bilateral air entry, no crackles, wheezes or rhonchi Gastrointestinal: soft, lax, Normal bowel sounds, Non tender Skin : Warm, Dry Neurological : Alert & oriented x3, No focal deficit Objective Data Active Medications Acetaminophen (Acetaminophen 325 Mg Tablet) 650 mg PO Q6H PRN PRN Reason: Pain, Mild (Pain Scale 1-3) Amlodipine Besylate (Amlodipine Besylate 10 Mg Tablet) 10 mg PO DAILY [facility]; Protocol Last Admin: 02/13/21 07:34 Dose: 10 mg Documented by: CANELO Atorvastatin Calcium (Atorvastatin Calcium 80 Mg Tablet) 80 mg PO BEDTIME [facility] Last Admin: 02/12/21 20:29 Dose: 80 mg Documented by: YURIDIA Dextrose (Dextrose 50 % 25 Gm/50 Ml Vial) 25 gm IVPUSH Q15M PRN; Protocol PRN Reason: per Hypoglycemia Standing Ord. Docusate Sodium (Docusate Sodium 100 Mg Capsule) 100 mg PO DAILY PRN PRN Reason: Constipation Glucose (Glucose Gel 15 Gm Gel..Gram.) 15 gm PO Q15M PRN; Protocol PRN Reason: per Hypoglycemia Standing Ord. Lactated Ringer's (Lr) 1,000 mls @ 100 mls/hr IVCONT .Q10H [facility] Last Admin: 02/13/21 07:40 Dose: 100 mls/hr Documented by: CANELO Insulin Human Lispro (Insulin Lispro 100 Unit/Ml 3 Ml Vial) 0 unit SUBCUT QIDACHS [facility]; Protocol Last Admin: 02/13/21 07:29 Dose: Not Given Documented by: CANELO Non-Admin Reason: No Insulin Coverage Metoprolol Tartrate (Metoprolol Tartrate 50 Mg Tablet) 50 mg PO BID [facility]; Protocol Last Admin: 02/13/21 07:41 Dose: Not Given Documented by: CANELO Non-Admin Reason: Decreased Heart Rate Morphine Sulfate (Morphine Sulfate 4 Mg/Ml Cartridge) 2 mg IVPUSH Q4H PRN; Protocol PRN Reason: Pain, Severe (Pain Scale 7-10) Last Admin: 02/13/21 00:44 Dose: 2 mg Documented by: KIA Ondansetron HCl (Ondansetron Hcl 4 Mg/2 Ml Vial) 4 mg IVPUSH Q8H PRN PRN Reason: Nausea and Vomiting Oxycodone HCl (Oxycodone Hcl Immed Release 5 Mg Tablet) 5 mg PO Q6H PRN PRN Reason: Pain, Moderate (Pain Scale 4-6 Pharmacy Consult (Consult Rx Perform Med Rec) 1 each MISCELLANE ONCE PRN PRN Reason: Consult order Sodium Chloride (0.9 % Sodium Chloride Flush 3 Ml Syringe) 3 ml IVFLUSH QSHIFT [facility] Last Admin: 02/13/21 07:42 Dose: Not Given Documented by: CANELO Non-Admin Reason: IV Running Labs CBC & Chem 7: 02/13/21 05:33 02/13/21 05:33 Labs: Laboratory Results - last 24 hr 02/12/21 02/12/21 02/12/21 11:31 11:31 11:31 MCV 94.3 MCH 31.7 MCHC 33.6 RDW 13.9 Plt Count 227 MPV 10.6 Immature Gran % (Auto) 0.2 Neut % (Auto) 78.5 H Lymph % (Auto) 11.8 L [place] % (Auto) 8.4 Eos % (Auto) 0.7 Baso % (Auto) 0.4 Lymph # (Auto) 1.5 [place] # (Auto) 1.0 Eos # (Auto) 0.1 Baso # (Auto) 0.1 Abs Immat Gran (auto) 0.03 Absolute Neuts (auto) 9.7 H Absolute Nucleated RBC 0.000 Nucleated RBC % (auto) 0.0 Anion Gap 15 Estim Creat Clear Calc 36.2 Estimated GFR 35 POC Glucose Random Glucose 147 H Calcium 9.5 D Magnesium 1.9 Total Bilirubin 0.7 AST 23 D ALT 15 Alkaline Phosphatase 48 Total Protein 7.1 Albumin 3.9 Urine Color Urine Appearance Urine pH Ur Specific [place] Urine Protein Urine Glucose (UA) Urine Ketones Urine Blood Urine Nitrite Ur Leukocyte Esterase Urine RBC Urine WBC Ur Squamous Epith Cells Ur Renal Epithelial Cell Urine Bacteria COVID-19 (JEREMY) Negative COVID-19 Clin Com See Note 02/12/21 02/12/21 02/12/21 11:46 16:34 20:34 MCV MCH MCHC RDW Plt Count MPV Immature Gran % (Auto) Neut % (Auto) Lymph % (Auto) [place] % (Auto) Eos % (Auto) Baso % (Auto) Lymph # (Auto) [place] # (Auto) Eos # (Auto) Baso # (Auto) Abs Immat Gran (auto) Absolute Neuts (auto) Absolute Nucleated RBC Nucleated RBC % (auto) Anion Gap Estim Creat Clear Calc Estimated GFR POC Glucose 220 H 229 H Random Glucose Calcium Magnesium Total Bilirubin AST ALT Alkaline Phosphatase Total Protein Albumin Urine Color YELLOW Urine Appearance CLEAR Urine pH 6.0 Ur Specific [place] <= 1.005 Urine Protein TRACE Urine Glucose (UA) NEG Urine Ketones NEG Urine Blood TRACE Urine Nitrite NEG Ur Leukocyte Esterase NEG Urine RBC 0-2 Urine WBC 0-2 Ur Squamous Epith Cells TRACE Ur Renal Epithelial Cell 1+ Urine Bacteria TRACE COVID-19 (JEREMY) COVID-19 Clin Com 02/13/21 02/13/21 02/13/21 05:33 05:33 07:25 MCV 94.6 MCH 31.4 MCHC 33.2 RDW 14.1 Plt Count 211 MPV 10.6 Immature Gran % (Auto) Neut % (Auto) Lymph % (Auto) [place] % (Auto) Eos % (Auto) Baso % (Auto) Lymph # (Auto) [place] # (Auto) Eos # (Auto) Baso # (Auto) Abs Immat Gran (auto) Absolute Neuts (auto) Absolute Nucleated RBC 0.000 Nucleated RBC % (auto) 0.0 Anion Gap 13 Estim Creat Clear Calc 37.5 Estimated GFR 36 POC Glucose 141 H Random Glucose 143 H Calcium 8.6 D Magnesium Total Bilirubin AST ALT Alkaline Phosphatase Total Protein Albumin Urine Color Urine Appearance Urine pH Ur Specific [place] Urine Protein Urine Glucose (UA) Urine Ketones Urine Blood Urine Nitrite Ur Leukocyte Esterase Urine RBC Urine WBC Ur Squamous Epith Cells Ur Renal Epithelial Cell Urine Bacteria COVID-19 (JEREMY) COVID-19 Clin Com Assessment and Plan (1) Acute kidney injury: Status: Acute (2) Calculus of kidney: Status: Acute Assessment and Plan: This is a 75-year-old female with history carotid s/p L CEA, PVD, HTN, HLD, DM, tobacco dependence who presents to the ED with left flank pain found to have multiple renal calculi and ZURI. ZURI SCr 1.47 up from baseline around 0.87 r/t renal stones hold Losartan Continue IVF monitor renal function renal calculi with associated hydroureter urology consult NPO For possible intervention today Hyperkalemia r/t ZURI, use of ARB hold losartan follow BMP DM Diet controlled SSI, POCs Hypertension Blood pressure controlled continue norvasc, metoprolol PVD continue Statin hold ASA, plavix in anticipation for urologic procedure dvt ppx - SCDs Quality Stroke Does the patient have a stroke diagnosis?: No VTE Prior VTE?: No VTE Risk Level:: Medical - moderate - high VTE Device Contraindication: N/A - Device Ordered VTE Drug Contraindication: Treatment Not Indicated
--- NOTE | 2021-02-13 09:49 | P.CNUR_ITS ---
History of Present Illness Consult details Consult date: 02/13/21 Narrative: iDa is a pleasant 75-year-old female Background of diabetes Presented to the hospital yesterday with left flank pain. On CT imaging found to have 3 small distal left ureteric stones with hydroureteronephrosis. These ranged in size from 4 mm to 6 mm Creatinine is elevated from baseline 0.8-1.4 White count 16.9 Findings consistent with obstructing distal left ureteric stones Pain was controlled with pain medication Recommendation for intervention with cystoscopy, retrograde, ureteroscopy, laser lithotripsy and stent placement Review of Systems Constitutional: Constitutional: Denies chills and Denies fever(s) Cardiovascular: Cardiovascular: Reports no additional cardiovascular complaints and Denies syncope Respiratory: Respiratory: Denies cough Gastrointestinal: Gastrointestinal: Denies abdominal pain and Denies heartburn Genitourinary: Genitourinary: Reports as per HPI and Denies change in libido Neurologic: Denies syncope Psychiatric: Psychiatric: Denies change in libido Endocrine: Endocrine: Denies change in libido [facility] Past Medical History Medical History (Updated 02/13/21 @ 09:51 by Erik Tapia MD) Abnormal myocardial perfusion study Arthritis Atherosclerotic cardiovascular disease COVID-19 CVA (cerebral vascular accident) Depression Diabetes Essential hypertension Expressive aphasia Hx of cardiac murmur Hyperlipidemia Hypertension Lab test negative for COVID-19 virus Other and unspecified hyperlipidemia Smoking Type 2 diabetes mellitus with unspecified complications Wears partial dentures Functional capacity: independent ambulation Family History Family History (Updated 02/12/21 @ 14:31 by JAMIE Decker) Father Heart attack Mother Heart attack Surgical History Surgical History History of excision of pilonidal cyst Hx of dilation and curettage Social History Social History Household Members: None Housing: House Are you a primary vp care management to a significant other at home: Yes () Do you presently have visiting nurse or other home services: No Alcohol intake: never Patient Tobacco Use Status: Current everyday Tobacco user Tobacco use type: Cigarette Cigarette Packs Per Day: 1 Cigarettes Per Day: 20.0 Years Smoked: 62 Smoked in Last 30 Days: Yes Patient Interested in Nicotine Replacement: No Patient Given Instructions on How to Stop Smoking: Yes Date Education Initiated: 02/12/21 Second Hand Smoke Exposure: No Use of substances other than those prescribed or required for medical reasons: No Currently Displaying Signs/Symptoms of Drug Intoxication Withdrawal: No Have you been hit, kicked, punched, or otherwise hurt by someone within the past year? If so, by whom?: No Do you feel safe in your current relationship?: Yes Is there a partner from a previous relationship who is making you feel unsafe now?: No Are you made to feel afraid or neglected: No Advance Directives: No Do you have thoughts of harming others: None Do you have a plan to hurt others: No Plan Recently lost weight without trying: No Nutrition Risks: No Nutritional Risk Patient : No : No Poor oral hygiene: No service: No Current occupational status: [employer] Allergies Allergy/AdvReac Type Severity Reaction Status Date / Time amoxicillin Allergy Mild RASH Verified 02/07/21 08:28 Active Medications: Current Medications Acetaminophen (Acetaminophen 325 Mg Tablet) 650 mg PO Q6H PRN PRN Reason: Pain, Mild (Pain Scale 1-3) Amlodipine Besylate (Amlodipine Besylate 10 Mg Tablet) 10 mg PO DAILY [facility]; Protocol Last Admin: 02/13/21 07:34 Dose: 10 mg Documented by: Atorvastatin Calcium (Atorvastatin Calcium 80 Mg Tablet) 80 mg PO BEDTIME [facility] Last Admin: 02/12/21 20:29 Dose: 80 mg Documented by: Dextrose (Dextrose 50 % 25 Gm/50 Ml Vial) 25 gm IVPUSH Q15M PRN; Protocol PRN Reason: per Hypoglycemia Standing Ord. Docusate Sodium (Docusate Sodium 100 Mg Capsule) 100 mg PO DAILY PRN PRN Reason: Constipation Glucose (Glucose Gel 15 Gm Gel..Gram.) 15 gm PO Q15M PRN; Protocol PRN Reason: per Hypoglycemia Standing Ord. Lactated Ringer's (Lr) 1,000 mls @ 100 mls/hr IVCONT .Q10H [facility] Last Admin: 02/13/21 07:40 Dose: 100 mls/hr Documented by: Insulin Human Lispro (Insulin Lispro 100 Unit/Ml 3 Ml Vial) 0 unit SUBCUT QIDACHS [facility]; Protocol Last Admin: 02/13/21 07:29 Dose: Not Given Documented by: Metoprolol Tartrate (Metoprolol Tartrate 50 Mg Tablet) 50 mg PO BID [facility]; Protocol Last Admin: 02/13/21 07:41 Dose: Not Given Documented by: Morphine Sulfate (Morphine Sulfate 4 Mg/Ml Cartridge) 2 mg IVPUSH Q4H PRN; Prot ocol PRN Reason: Pain, Severe (Pain Scale 7-10) Last Admin: 02/13/21 00:44 Dose: 2 mg Documented by: Ondansetron HCl (Ondansetron Hcl 4 Mg/2 Ml Vial) 4 mg IVPUSH Q8H PRN PRN Reason: Nausea and Vomiting Oxycodone HCl (Oxycodone Hcl Immed Release 5 Mg Tablet) 5 mg PO Q6H PRN PRN Reason: Pain, Moderate (Pain Scale 4-6 Pharmacy Consult (Consult Rx Perform Med Rec) 1 each MISCELLANE ONCE PRN PRN Reason: Consult order Sodium Chloride (0.9 % Sodium Chloride Flush 3 Ml Syringe) 3 ml IVFLUSH [facility] Last Admin: 02/13/21 07:42 Dose: Not Given Documented by: Home Medications Medication Instructions Recorded Confirmed Last Taken Type amlodipine 10 mg tablet 10 mg PO DAILY 08/02/20 02/12/21 Unknown History metoprolol tartrate 50 mg tablet 50 mg PO BID 08/02/20 02/12/21 Unknown History Physical Exam Vital Signs: Vital Signs: Last Vital Signs Temp 97.4 F 02/13/21 07:13 Pulse 56 02/13/21 07:13 Resp 16 02/13/21 07:13 BP 133/59 L 02/13/21 07:13 Pulse Ox 93 02/13/21 07:13 Body Mass Index 30.4 Const: General: cooperative, healthy appearing, comfortable and no acute distress Orientation/consciousness: patient oriented x3 HENMT: Face and sinus: Yes normal facial exam Mouth: moist mucous membranes Neck: Neck: Yes normal visual inspection, Yes full ROM and Yes trachea midline Chest: Chest palpation & inspection: normal inspection of the chest Resp: Effort & Inspection: normal respiratory effort, able to speak in complete sentences and no respiratory distress GI: Inspection: Yes normal to inspection Back/Spine/Pelvis: Cervical Spine: normal cervical lordosis Thoracic/Lumbar Spine: thoracic and lumbar spine normal to inspection Skin: General skin exam: no rashes or lesions noted Neuro: General: patient oriented x3, gait normal, tone normal and moves all extremities Extrem: General: Yes normal to inspection and Yes capillary refill normal Results Labs Result diagrams: 02/13/21 05:33 02/13/21 05:33 Labs: Abnormal lab results 02/12/21 02/12/21 02/12/21 Range/Units 11:31 11:31 16:34 WBC 12.3 H (4.8-10.8) X10*3/uL RBC (4.20-5.50) X10*6/uL Hct (37.0-47.0) % Neut % (Auto) 78.5 H (45-73) % Lymph % (Auto) 11.8 L (20-40) % Absolute Neuts (auto) 9.7 H (2.0-8.3) x10*3/uL Sodium 132 L (135-145) mmol/L Potassium 5.2 H (3.3-5.1) mmol/L BUN 18 H (9-16) mg/dL Creatinine 1.47 H (0.5-1.4) mg/dL POC Glucose 220 H (60-115) mg/dL Random Glucose 147 H (60-115) mg/dL 02/12/21 02/13/21 02/13/21 Range/Units 20:34 05:33 05:33 WBC 16.9 H (4.8-10.8) X10*3/uL RBC 3.88 L (4.20-5.50) X10*6/uL Hct 36.7 L (37.0-47.0) % Neut % (Auto) (45-73) % Lymph % (Auto) (20-40) % Absolute Neuts (auto) (2.0-8.3) x10*3/uL Sodium (135-145) mmol/L Potassium (3.3-5.1) mmol/L BUN 25 H (9-16) mg/dL Creatinine 1.42 H (0.5-1.4) mg/dL POC Glucose 229 H (60-115) mg/dL Random Glucose 143 H (60-115) mg/dL 02/13/21 Range/Units 07:25 WBC (4.8-10.8) X10*3/uL RBC (4.20-5.50) X10*6/uL Hct (37.0-47.0) % Neut % (Auto) (45-73) % Lymph % (Auto) (20-40) % Absolute Neuts (auto) (2.0-8.3) x10*3/uL Sodium (135-145) mmol/L Potassium (3.3-5.1) mmol/L BUN (9-16) mg/dL Creatinine (0.5-1.4) mg/dL POC Glucose 141 H (60-115) mg/dL Random Glucose (60-115) mg/dL Short CBC 02/12/21 02/13/21 Range/Units 11:31 05:33 WBC 12.3 H 16.9 H (4.8-10.8) X10*3/uL Hgb 13.8 12.2 (12.0-16.0) g/dl Hct 41.1 36.7 L (37.0-47.0) % Plt Count 227 211 (160-400) X10*3/uL BMP 02/12/21 02/13/21 11:31 05:33 Sodium 132 L 136 Potassium 5.2 H 4.9 Chloride 100 106 Carbon Dioxide 22 22 BUN 18 H 25 H Creatinine 1.47 H 1.42 H Calcium 9.5 D 8.6 D Liver Function 02/12/21 Range/Units 11:31 Total Bilirubin 0.7 (0.0-1.0) mg/dL AST 23 D (5-31) U/L ALT 15 (0-31) U/L Alkaline Phosphatase 48 (39-117) U/L Albumin 3.9 (3.5-5.0) g/dL Urine 02/12/21 Range/Units 11:46 Urine Color YELLOW Urine Appearance CLEAR Urine pH 6.0 (5.0-8.0) Ur Specific [place] <= 1.005 (1.005-1.025) Urine Protein TRACE (NEG-TRACE) MG/DL Urine Glucose (UA) NEG (NEG) MG/DL All other labs normal. Assessment and Plan (1) Ureteral stone with hydronephrosis: Status: Acute Ureteroscopy We discussed the nature of the decision and reasonable alternatives for performing the above surgery. Interventions include chemical dissolution, ESWL, ureteroscopy with laser lithotripsy and stent placement, PCNL. Options such as medical therapy were discussed. The relative uncertainties and benefits related to each alternate procedure were adequately discussed. General surgical risks including, but not limited to, pain, bleeding, infection, myocardial infarction, pulmonary embolus, deep vein thrombosis and cerebrovascular accident which may result in further hospitalization were discussed. Full disclosure of the procedure as well as all major risks, benefits and complications were discussed including but not limited to damage to the urethra, bladder and kidney infection, damage to the ureter, stent migration or malposition, scarring to the renal pelvis, remnant stone fragments, subsequent stone passage with need for secondary procedures. The overall secondary proc edure rate is approximately 10-15%. The success rate of the procedure was discussed. Success of the procedure in the short-term does not necessarily guarantee that long-term success will be maintained. Suitable follow up will need to be maintained. The patient showed understanding of discussion and wishes to proceed with - cystoscopy, retrograde, ureteroscopy, possible lithotripsy/stone basketing and stent on the left side Procedures Date of Service Date of Service: 02/13/21
--- NOTE | 2021-02-13 10:03 | MHC.CM.PN ---
Patient met with Patient at bedside and addressed IMM with her and provided her with the original and placing a copy on the chart. PCP is Dr/[employer] Mini Sosa and SON IS HCP. Patient lives alone, no DME, still working. Home/no services is the goal for dc and CM has initiated and will follow for dc planning.
[2021-02-13 10:36] LABS: Glucose, Whole Blood 123 mg/dL (60-115)
--- NOTE | 2021-02-13 11:02 | P.CONAN_ITS ---
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 (Acute) Calculus of kidney (Acute) Abdominal pain (Acute) Constipation (Acute) Acute kidney injury (Acute) Abnormal myocardial perfusion study (Acute) Smoking (Acute) Other and unspecified hyperlipidemia (Acute) Essential hypertension (Acute) Type 2 diabetes mellitus with unspecified complications (Acute) Atherosclerotic cardiovascular disease (Acute) Hypertension (Acute) Past Medical History Medical History Abnormal myocardial perfusion study Arthritis Atherosclerotic cardiovascular disease COVID-19 CVA (cerebral vascular accident) Depression Diabetes Essential hypertension Expressive aphasia Hx of cardiac murmur Hyperlipidemia Hypertension Lab test negative for COVID-19 virus Other and unspecified hyperlipidemia Smoking Type 2 diabetes mellitus with unspecified complications Wears partial dentures Functional capacity: independent ambulation Family History Family History Father Heart attack Mother Heart attack Family history of problems with anesthesia: No Surgical History Surgical History History of excision of pilonidal cyst Hx of dilation and curettage History of Problems with Anesthesia: No Social History Social History Household Members: None Housing: House Are you a primary child caregiver to a significant other at home: Yes () Do you presently have visiting nurse or other home services: No Alcohol intake: never Patient Tobacco Use Status: Current everyday Tobacco user Tobacco use type: Cigarette Cigarette Packs Per Day: 1 Cigarettes Per Day: 20.0 Years Smoked: 62 Smoked in Last 30 Days: Yes Patient Interested in Nicotine Replacement: No Patient Given Instructions on How to Stop Smoking: Yes Date Education Initiated: 02/12/21 Second Hand Smoke Exposure: No Use of substances other than those prescribed or required for medical reasons: No Currently Displaying Signs/Symptoms of Drug Intoxication Withdrawal: No Have you been hit, kicked, punched, or otherwise hurt by someone within the past year? If so, by whom?: No Do you feel safe in your current relationship?: Yes Is there a partner from a previous relationship who is making you feel unsafe now?: No Are you made to feel afraid or neglected: No Are you DNR?: Yes Advance Directives: No Do you have thoughts of harming others: None Do you have a plan to hurt others: No Plan Recently lost weight without trying: No Nutrition Risks: No Nutritional Risk Patient : No : No Poor oral hygiene: No service: No Current occupational status: employed and retired Meds Allergies Allergy/AdvReac Type Severity Reaction Status Date / Time amoxicillin Allergy Mild RASH Verified 02/07/21 08:28 Active Medications: Current Medications Acetaminophen (Acetaminophen 325 Mg Tablet) 650 mg PO Q6H PRN PRN Reason: Pain, Mild (Pain Scale 1-3) Amlodipine Besylate (Amlodipine Besylate 10 Mg Tablet) 10 mg PO DAILY [facility]; Protocol Last Admin: 02/13/21 07:34 Dose: 10 mg Documented by: Atorvastatin Calcium (Atorvastatin Calcium 80 Mg Tablet) 80 mg PO BEDTIME [facility] Last Admin: 02/12/21 20:29 Dose: 80 mg Documented by: Dextrose (Dextrose 50 % 25 Gm/50 Ml Vial) 25 gm IVPUSH Q15M PRN; Protocol PRN Reason: per Hypoglycemia Standing Ord. Docusate Sodium (Docusate Sodium 100 Mg Capsule) 100 mg PO DAILY PRN PRN Reason: Constipation Glucose (Glucose Gel 15 Gm Gel..Gram.) 15 gm PO Q15M PRN; Protocol PRN Reason: per Hypoglycemia Standing Ord. Lactated Ringer's (Lr) 1,000 mls @ 100 mls/hr IVCONT .Q10H [facility] Last Admin: 02/13/21 07:40 Dose: 100 mls/hr Documented by: Insulin Human Lispro (Insulin Lispro 100 Unit/Ml 3 Ml Vial) 0 unit SUBCUT QIDACHS [facility]; Protocol Last Admin: 02/13/21 07:29 Dose: Not Given Documented by: Metoprolol Tartrate (Metoprolol Tartrate 50 Mg Tablet) 50 mg PO BID [facility]; Protocol Last Admin: 02/13/21 07:41 Dose: Not Given Documented by: Morphine Sulfate (Morphine Sulfate 4 Mg/Ml Cartridge) 2 mg IVPUSH Q4H PRN; Protocol PRN Reason: Pain, Severe (Pain Scale 7-10) Last Admin: 02/13/21 00:44 Dose: 2 mg Documented by: Ondansetron HCl (Ondansetron Hcl 4 Mg/2 Ml Vial) 4 mg IVPUSH Q8H PRN PRN Reason: Nausea and Vomiting Oxycodone HCl (Oxycodone Hcl Immed Release 5 Mg Tablet) 5 mg PO Q6H PRN PRN Reason: Pain, Moderate (Pain Scale 4-6 Pharmacy Consult (Consult Rx Perform Med Rec) 1 each MISCELLANE ONCE PRN PRN Reason: Consult order Sodium Chloride (0.9 % Sodium Chloride Flush 3 Ml Syringe) 3 ml IVFLUSH QSHIFT [facility] Last Admin: 02/13/21 07:42 Dose: Not Given Documented by: Home Medications Medication Instructions Recorded Confirmed Last Taken Type amlodipine 10 mg tablet 10 mg PO DAILY 08/02/20 02/12/21 Unknown History metoprolol tartrate 50 mg tablet 50 mg PO BID 08/02/20 02/12/21 Unknown History Exam Exam Date and Time: February 13, 2021 1102 Height,Weight and Vital Signs: Height 5 ft 5 in Weight 83.007 kg Last Vital Signs Temp 97.1 F 02/13/21 10:29 Pulse 65 02/13/21 10:29 Resp 18 02/13/21 10:29 BP 140/50 H 02/13/21 10:29 Pulse Ox 94 02/13/21 10:29 Pertinent Lab Results Pertinent Lab Results: Laboratory Tests 02/12/21 02/12/21 02/12/21 11:31 11:31 11:31 WBC 12.3 H RBC 4.36 Hgb 13.8 Hct 41.1 MCV 94.3 MCH 31.7 MCHC 33.6 RDW 13.9 Plt Count 227 MPV 10.6 Immature Gran % (Auto) 0.2 Neut % (Auto) 78.5 H Lymph % (Auto) 11.8 L [place] % (Auto) 8.4 Eos % (Auto) 0.7 Baso % (Auto) 0.4 Lymph # (Auto) 1.5 [place] # (Auto) 1.0 Eos # (Auto) 0.1 Baso # (Auto) 0.1 Abs Immat Gran (auto) 0.03 Absolute Neuts (auto) 9.7 H Absolute Nucleated RBC 0.000 Nucleated RBC % (auto) 0.0 Sodium 132 L Potassium 5.2 H Chloride 100 Carbon Dioxide 22 Anion Gap 15 BUN 18 H Creatinine 1.47 H Estim Creat Clear Calc 36.2 Estimated GFR 35 POC Glucose Random Glucose 147 H Calcium 9.5 D Magnesium 1.9 Total Bilirubin 0.7 AST 23 D ALT 15 Alkaline Phosphatase 48 Total Protein 7.1 Albumin 3.9 Urine Color Urine Appearance Urine pH Ur Specific [place] Urine Protein Urine Glucose (UA) Urine Ketones Urine Blood Urine Nitrite Ur Leukocyte Esterase Urine RBC Urine WBC Ur Squamous Epith Cells Ur Renal Epithelial Cell Urine Bacteria COVID-19 (JEREMY) Negative COVID-19 Clin Com See Note 02/12/21 02/12/21 02/12/21 11:46 16:34 20:34 WBC RBC Hgb Hct MCV MCH MCHC RDW Plt Count MPV Immature Gran % (Auto) Neut % (Auto) Lymph % (Auto) [place] % (Auto) Eos % (Auto) Baso % (Auto) Lymph # (Auto) [place] # (Auto) Eos # (Auto) Baso # (Auto) Abs Immat Gran (auto) Absolute Neuts (auto) Absolute Nucleated RBC Nucleated RBC % (auto) Sodium Potassium Chloride Carbon Dioxide Anion Gap BUN Creatinine Estim Creat Clear Calc Estimated GFR POC Glucose 220 H 229 H Random Glucose Calcium Magnesium Total Bilirubin AST ALT Alkaline Phosphatase Total Protein Albumin Urine Color YELLOW Urine Appearance CLEAR Urine pH 6.0 Ur Specific [place] <= 1.005 Urine Protein TRACE Urine Glucose (UA) NEG Urine Ketones NEG Urine Blood TRACE Urine Nitrite NEG Ur Leukocyte Esterase NEG Urine RBC 0-2 Urine WBC 0-2 Ur Squamous Epith Cells TRACE Ur Renal Epithelial Cell 1+ Urine Bacteria TRACE COVID-19 (JEREMY) COVID-19 Clin Com 02/13/21 02/13/21 02/13/21 05:33 05:33 07:25 WBC 16.9 H RBC 3.88 L Hgb 12.2 Hct 36.7 L MCV 94.6 MCH 31.4 MCHC 33.2 RDW 14.1 Plt Count 211 MPV 10.6 Immature Gran % (Auto) Neut % (Auto) Lymph % (Auto) [place] % (Auto) Eos % (Auto) Baso % (Auto) Lymph # (Auto) [place] # (Auto) Eos # (Auto) Baso # (Auto) Abs Immat Gran (auto) Absolute Neuts (auto) Absolute Nucleated RBC 0.000 Nucleated RBC % (auto) 0.0 Sodium 136 Potassium 4.9 Chloride 106 Carbon Dioxide 22 Anion Gap 13 BUN 25 H Creatinine 1.42 H Estim Creat Clear Calc 37.5 Estimated GFR 36 POC Glucose 141 H Random Glucose 143 H Calcium 8.6 D Magnesium Total Bilirubin AST ALT Alkaline Phosphatase Total Protein Albumin Urine Color Urine Appearance Urine pH Ur Specific [place] Urine Protein Urine Glucose (UA) Urine Ketones Urine Blood Urine Nitrite Ur Leukocyte Esterase Urine RBC Urine WBC Ur Squamous Epith Cells Ur Renal Epithelial Cell Urine Bacteria COVID-19 (JEREMY) COVID-19 Clin Com 02/13/21 10:32 WBC RBC Hgb Hct MCV MCH MCHC RDW Plt Count MPV Immature Gran % (Auto) Neut % (Auto) Lymph % (Auto) [place] % (Auto) Eos % (Auto) Baso % (Auto) Lymph # (Auto) [place] # (Auto) Eos # (Auto) Baso # (Auto) Abs Immat Gran (auto) Absolute Neuts (auto) Absolute Nucleated RBC Nucleated RBC % (auto) Sodium Potassium Chloride Carbon Dioxide Anion Gap BUN Creatinine Estim Creat Clear Calc Estimated GFR POC Glucose 123 H Random Glucose Calcium Magnesium Total Bilirubin AST ALT Alkaline Phosphatase Total Protein Albumin Urine Color Urine Appearance Urine pH Ur Specific [place] Urine Protein Urine Glucose (UA) Urine Ketones Urine Blood Urine Nitrite Ur Leukocyte Esterase Urine RBC Urine WBC Ur Squamous Epith Cells Ur Renal Epithelial Cell Urine Bacteria COVID-19 (JEREMY) COVID-19 Clin Com Airway Mallampati Class: II TM Dist: >3cm Neck ROM: Full Partial: Upper and Lower Loose/Missing/Broken Teeth: Yes Heart: RRR Lungs: CTA Assessment and Plan Assessment Anesthesia Assessment: Anesthesia Plan Discussed (Aware of high cardiac risk. Discussed with pt. and Dr. Tapia, and need to undergo procedure to avoid risk of urosepsis. Pt. understands she is at high cardiac risk.) Final Anesthetic Review Family History of Problems with Anesthesia: No History of Problems with Anesthesia: No NPO: Yes ASA Class: III Final Preanesthetic Review: Meds/Allgs Chart Reviewed, Consent Obtained/Reviewed and Anes Risks/Benef Reviewed Patient Risk: High Procedure Risk: Low Anesthetic Plan Anesthetic Plan: GA Disposition: Standard PACU
--- NOTE | 2021-02-13 11:37 | P.HPSUR_ITS ---
Pre-Procedural Eval Section A Date of Service: 02/13/21 The patient is an INPATIENT: Yes Changes since office visit: No Cold of Flu in the past 2 weeks, No New Medical Problems, No Changes in Medication and No Patient answered all questions The History & Physical has been completed within 30 days and I have reviewed it.: Yes Section B Chief Complaint: constipation, abd pain, nausea Details of Present Illness: distal left ureteric stone with hydroureteronephrosis. Multi pole stones. No prior history of stones. Elevated creatinine and elevated white count. Relevant Family History (Specify if Yes): No Relevant Social History: None Present Medications: see Short Stay Collaborative assessment Medical History: Significant History History of Previous Operations: No relevant previous surgery Allergies: Allergies Allergy/AdvReac Type Severity Reaction Status Date / Time amoxicillin Allergy Mild RASH Verified 02/07/21 08:28 Review of Systems Sugical H&P ROS: Negative: Constitution, Cardiovascular, Respiratory, Neurological, Psychiatric, Hem-Onc, Allergic/Immunologic, Gastrointestinal, Genitourinary, Musculoskeletal, Integumentary, Endocrine and Eyes/Ears /Nose/Throat Exam Surgical H&P Exam: Normal: HEENT, Normal: Heart, Normal: Lungs, Normal: Extremities, Normal: Abdomen, Normal: Skin and Normal: Neurological Plan Diagnosis/Plan: Unchanged ( Cystoscopy, left retrograde, left ureteroscopy with laser lithotripsy and stent placement. Patient understands at high risk of cardiac event. They understand that if the stones were remain is a high chance of developing urosepsis and triggering a cardiac event as well.) I have reviewed the history and physical and performed a pertinent physical examination on my patient. No changes have occurred unless specified.
--- NOTE | 2021-02-13 12:27 | W.PM.OPN ---
Operative Note Operative Note Date of Service: 02/13/21 Narrative: PreOperative Diagnosis: Left distal ureteric stones Post Operative Diagnosis: left distal ureteric stones Procedure: - cystoscopy, left retrograde - left ureteroscopy, laser lithotripsy, stone basketing - left stent placement Surgeon: Dr Erik Tapia Anesthesia: General Indications for procedure: 75-year-old female. No previous stone issues. Presents with left-sided flank pain and discomfort with elevated white count and creatinine. Baseline diabetic. Imaging showed 3 small stones obstructing her distal left ureter with hydroureteronephrosis. Recommendation for intervention with ureteroscopy laser lithotripsy and stent placement. She is aware the risks and benefits particularly related to infection. Baseline prior cardiac episode with CVA a year ago. has high risk features from a cardiac perspective. Procedure: After informed consent was verified patient was brought to the operating placed in supine position. Anesthesia was administered per protocol. Patient was placed in modified dorsal lithotomy position and prepped and draped in a sterile fashion. Safety pause time-out and side of surgery confirmed. Antibiotics confirmed. Twenty-two Ethiopian cystoscope inserted per urethra. Left ureteric orifice cannulated and retrograde examination performed. She was noticed to have a post hydronephrotic drip. Kidney was aspirated of urine which is sent for culture. Once the Sensor guidewire was in place the cystoscope was removed. Rigid ureteral scope was inserted. This was advanced alongside the wire in the stones were encountered. Using holmium laser fiber the stones were broken into small pieces. Using a flat wire basket fragments were removed and were sent for analysis. The wire was backloaded through a cystoscope and a 6 Ethiopian by 24 cm stent was placed with good coil seen within the renal pelvis and in the bladder. Bladder was emptied. She tolerated procedure well was extubated in operating room transferred in stable condition to the recovery area. Pathology: Stones Drains: 6 Ethiopian by 24 cm stent
[2021-02-13 13:31] LABS: Glucose, Whole Blood 137 mg/dL (60-115)
[2021-02-13] MEDS: Phenazopyridine HCL 100 MG TABLET PO (14:13)
--- NOTE | 2021-02-13 14:27 | PM.DS ---
DS: Providers Provider Date of Service: 02/13/21 Date of admission: 02/12/21 14:32 Primary care physician: Mini Sosa NP Consults: 02/12/21 13:55 Consult to Urology Stat Consulting Provider: Erik Tapia Reason for consultation: Left renal stones Has provider been notified: Yes DS: Diagnosis Discharge Diagnosis (1) Ureteral stone with hydronephrosis: Status: Acute (2) Acute kidney injury: Status: Acute DS: Summary Hospital Course Hospital Course: Admission note HPI ? ? ? This is a 75 female multiple medical issues who presents to the emergency department left-sided flank pain.? Her pain initially began on Saturday afternoon.? It radiates around to the front of her abdomen.? It is associated with nausea but no vomiting.? She has had decreased appetite.? She denies any fever or chills.? She initially thought that her pain was related to constipation but when the pain persisted she presented to the ED for evaluation. She underwent CT scan of the abdomen which revealed 3 renal calculi in the distal left ureter measuring 6 mm, 5 mm and 3 mm with associated mild upstream hydroureter.? Case was discussed with Dr. Tapia of Urology who recommended admitting the patient? Hospital course The patient was admitted with severe slowing pain for evaluation as CT scan showed 3 stones at the distal part of the ureter associated with findings of acute kidney injury. The patient was admitted and treated with IV fluids as she was evaluated by urology team who decided to do an intervention to place a stent and remove the stones. Patient feels much better after the procedure. She was noted to have acute kidney injury with creatinine of 1.4 from baseline of 0.9. Treated with IV fluid with stable kidney function. To repeat BMP as outpatient after removing the obstructive stone. Plan to discharge home to finish 5 days of antibiotic and to follow-up with Dr. Tapia office in 2 weeks. Time Spent with Patient Time attestation: Total time spent providing and/or coordinating discharge services: Discharge coordination time: Greater than 30 minutes Quality: Stroke Does the patient have a stroke diagnosis?: No Physical Exam Vital Signs: Vital Signs: Last Vital Signs Temp 97 F 02/13/21 13:25 Pulse 60 02/13/21 13:25 Resp 18 02/13/21 13:25 BP 127/60 02/13/21 13:25 Pulse Ox 93 02/13/21 13:25 Body Mass Index 30.4 Const: Other: Constitutional : Alert, oriented, not in distress Neck : Normal inspection, Supple Cardiovascular : RRR, S1 S2, no lower extremity edema Respiratory : Good bilateral air entry, no crackles, wheezes or rhonchi Gastrointestinal: soft, lax, Normal bowel sounds, Non tender Skin : Warm, Dry Neurological : Alert & oriented x3, No focal deficit DS: Data Data Completed and Pending Completed studies during hospitalization [Text1]: Procedures Extirpation of Matter from Left Common Carotid Artery, Open Approach (03/14/20) Extirpation of Matter from Left External Carotid Artery, Open Approach (03/14/20) Extirpation of Matter from Left Internal Carotid Artery, Open Approach (03/14/20) Supplement Left Common Carotid Artery with Synthetic Substitute, Open Approach (03/14/20) Supplement Left External Carotid Artery with Synthetic Substitute, Open Approach (03/14/20) Supplement Left Internal Carotid Artery with Synthetic Substitute, Open Approach (03/14/20) Pending studies at discharge: Pending at discharge 02/13/21 12:36 Surgical [PTH] Routine Labs on day of discharge: Laboratory Results - last 24 hr 02/12/21 02/12/21 02/13/21 16:34 20:34 05:33 WBC 16.9 H RBC 3.88 L Hgb 12.2 Hct 36.7 L MCV 94.6 MCH 31.4 MCHC 33.2 RDW 14.1 Plt Count 211 MPV 10.6 Absolute Nucleated RBC 0.000 Nucleated RBC % (auto) 0.0 Sodium Potassium Chloride Carbon Dioxide Anion Gap BUN Creatinine Estim Creat Clear Calc Estimated GFR POC Glucose 220 H 229 H Random Glucose Calcium 02/13/21 02/13/21 02/13/21 05:33 07:25 10:32 WBC RBC Hgb Hct MCV MCH MCHC RDW Plt Count MPV Absolute Nucleated RBC Nucleated RBC % (auto) Sodium 136 Potassium 4.9 Chloride 106 Carbon Dioxide 22 Anion Gap 13 BUN 25 H Creatinine 1.42 H Estim Creat Clear Calc 37.5 Estimated GFR 36 POC Glucose 141 H 123 H Random Glucose 143 H Calcium 8.6 D 02/13/21 13:24 WBC RBC Hgb Hct MCV MCH MCHC RDW Plt Count MPV Absolute Nucleated RBC Nucleated RBC % (auto) Sodium Potassium Chloride Carbon Dioxide Anion Gap BUN Creatinine Estim Creat Clear Calc Estimated GFR POC Glucose 137 H Random Glucose Calcium Discharge Plan Discharge Patient Disposition: Home, Self-Care Discharge Diagnosis: Uretric stone ZURI Referrals: Mini Sosa NP [Primary Care Provider] - 1 Week Discharge Medications: New cefuroxime axetil 500 mg tablet 500 mg PO BID Qty: 10 RF: 0 Continued atorvastatin 80 mg Tablet 80 mg PO BEDTIME Qty: 30 RF: 0 clopidogrel 75 mg Tablet 75 mg PO DAILY Qty: 30 RF: 0 aspirin 81 mg Tablet,Delayed Release (Dr/Ec) 81 mg PO DAILY Qty: 30 RF: 0 metoprolol tartrate 50 mg tablet 50 mg PO BID RF: 0 amlodipine 10 mg tablet 10 mg PO DAILY RF: 0 losartan 100 mg tablet 100 mg PO DAILY Qty: 90 RF: 4 Discharge Orders: Discharge Order (Routine); Ordered 02/13/21 Ordered By: Leonardo De Leon Diet: advance to usual diet Activity on Discharge: As tolerated Stand Alone Forms: Patient Portal Discharge page Care Plan Goals: Read below Health Concerns: Read below Plan of Treatment: Read below Assessment: You were admitted to the hospital for evaluation of pain. Found to have multiple small stones in your ureter. Evaluated by urologist who removed the stones and placed a stent. To be treated with 5 days of antibiotic To follow up with Dr. Tapia office in 2 weeks
--- NOTE | 2021-02-13 14:29 | MHC.CM.PN ---
Patient has been medically cleared for dc to home today, no services. IMM addressed this morning.
[2021-02-18 22:10] LABS: Stone Source URETERAL STONE
== END 2021-02-13 15:14 | disposition home or self-care (01) | DRG 661 ==
LOC: HO.ED 14:05 → HO.EDOVER 14:33 → HO.S3 15:05
PROVIDERS: Physician Assistant; Urology; Admitting Provider Physician Assistant Medical; Emergency Provider Emergency Medicine Emergency Medical Services; PCP Registered Nurse; Visit Provider Student in an Organized Health Care Education/Training Program
PROC: 0T778DZ Dilation of Left Ureter with Intraluminal Device, Via Natural or Artificial Opening Endoscopic (ICD-10-PCS; principal; 2021-02-13 15:40)
DX: N13.2 Hydronephrosis with renal and ureteral calculous obstruction (principal); K59.00 Constipation, unspecified; N17.9 Acute kidney failure, unspecified; E87.5 Hyperkalemia; E11.51 Type 2 diabetes mellitus with diabetic peripheral angiopathy without gangrene; F17.210 Nicotine dependence, cigarettes, uncomplicated; I10 Essential (primary) hypertension; Z71.6 Tobacco abuse counseling; Z86.73 Personal history of transient ischemic attack (TIA), and cerebral infarction without residual deficits; Z20.822 Contact with and (suspected) exposure to COVID-19; Z88.0 Allergy status to penicillin; Z79.02 Long term (current) use of antithrombotics/antiplatelets; Z79.82 Long term (current) use of aspirin; Z79.899 Other long term (current) drug therapy; Z66 Do not resuscitate
CPT/HCPCS: 36415; 74176; 76775; 80048; 80053; 81001; 82365; 82947; 83735; 85025; 85027; 87086; 87635; 88300; 99285; C1769; C2617; J1100; J1956; J2270; J2405; J3010; Q9967

== ENCOUNTER → 2021-03-01 12:25 | Outpatient (BNVA) | payer MEDICARE, SELFPAY | PROVIDERS: PCP Registered Nurse; Visit Provider Urology | DX: N20.0 Calculus of kidney (principal) | CPT/HCPCS: 52310; 99212 ==

== ENCOUNTER 2021-05-09 13:40 | Outpatient (REF) | payer MEDICARE, SELFPAY ==
--- NOTE | ~2021-05-09 | US_ITS ---
EXAMINATION: US RETROPERITONEAL LIMITED (RENAL ONLY) CLINICAL INFORMATION: Kidney stones. COMPARISON: Ultrasound renal 02/12/2021. CT abdomen pelvis same date. TECHNIQUE: Real-time imaging of the kidneys. FINDINGS: RIGHT KIDNEY: 10.4 x 5.65 x 5.2 cm (SAG x AP x TRV). The kidney is normal in size, contour, and echogenicity. Renal cortical thickness is normal. No renal calculi or hydronephrosis. There are numerous cysts present with the largest 3 being measured: Within the upper pole there is a 3.8 x 3.9 x 4.4 cm complex cyst with septation measuring up to 2 mm in diameter and without vascular flow within it. Within the midpole, there is a 2.1 x 2.0 x 1.7 cm simple-appearing cyst. Within the lower pole, there is a 1.1 x 1.0 x 0.9 cm complex cyst with thin septations and no internal vascularity. The complex cysts have the appearance of Bosniak 2 cysts. LEFT KIDNEY: 11.6 x 5.30 x 4.52 cm (SAG x AP x TRV). The kidney is normal in size, contour, and echogenicity. Renal cortical thickness is normal. No renal calculi. There is mild fullness of the upper collecting system. Multiple cysts are present with the largest 3 being described: Within the upper pole, there is a 2.7 x 2.5 x 3.1 cm cyst. Within the midpole, there is a 2.5 x 2.2 x 2.3 cm cyst. Within the lower pole, there is a 1.0 x 0.8 x 1.1 cm cyst. These cysts appear to be simple cysts. US/US renal BI IMPRESSION: Mild fullness of the left upper collecting system. No renal calculi identified. Numerous bilateral renal cysts with 2 complex right renal cysts with thin septations making them Bosniak 2-type cysts.
== END 2021-05-09 13:41 | disposition home or self-care (01) ==
LOC: HO.HMGCX 13:40
PROVIDERS: PCP Registered Nurse; Visit Provider Urology
DX: N20.0 Calculus of kidney (principal)
CPT/HCPCS: 76775

== ENCOUNTER → 2021-05-17 11:47 | Outpatient (BNVA) | payer MEDICARE, SELFPAY | PROVIDERS: PCP Registered Nurse; Visit Provider Urology | DX: N20.0 Calculus of kidney (principal) | CPT/HCPCS: Q3014 ==

== ENCOUNTER → 2021-08-14 08:19 | Outpatient (BNVA) | payer MEDICARE, SELFPAY | PROVIDERS: PCP Registered Nurse; Visit Provider Internal Medicine | DX: I25.10 Atherosclerotic heart disease of native coronary artery without angina pectoris (principal); I63.232 Cerebral infarction due to unspecified occlusion or stenosis of left carotid arteries; I10 Essential (primary) hypertension; I49.3 Ventricular premature depolarization; E11.8 Type 2 diabetes mellitus with unspecified complications; F17.210 Nicotine dependence, cigarettes, uncomplicated | CPT/HCPCS: 93005; 99212 ==

== ENCOUNTER 2021-10-23 09:44 | Outpatient (REF) | payer MEDICARE, SELFPAY ==
--- NOTE | ~2021-10-23 | US_ITS ---
EXAMINATION: US RETROPERITONEAL LIMITED (RENAL ONLY) CLINICAL INFORMATION: Calculus of kidney. COMPARISON: US retroperitoneal limited (renal only) 05/09/2021 .CT abdomen and pelvis without contrast 02/12/2021. TECHNIQUE: Real-time imaging of the kidneys. FINDINGS: RIGHT KIDNEY: 10.2 x 5.5 x 5.1 cm (SAG x AP x TRV). The kidney is normal in size, contour, and echogenicity. Renal cortical thickness is normal. No renal calculi or hydronephrosis. Multiple benign-appearing and likely benign renal cysts the largest measuring 3.8 cm with a thin internal septation, previously 4.4 cm. No routine imaging follow-up recommended. LEFT KIDNEY: 10.8 x 5.4 x 4.6 cm (SAG x AP x TRV). The kidney is normal in size, contour, and echogenicity. Renal cortical thickness is normal. No hydronephrosis. Benign-appearing renal cysts measuring up to 3.4 cm, no imaging follow-up recommended. Two 3 mm nonobstructing upper pole renal stones new from prior. US/US renal BI IMPRESSION: Two 3 mm nonobstructing left upper pole renal stones new from prior.
== END 2021-10-23 09:45 | disposition home or self-care (01) ==
LOC: HO.HMGCX 09:44
PROVIDERS: PCP Registered Nurse; Visit Provider Urology
DX: N20.0 Calculus of kidney (principal)
CPT/HCPCS: 76775

== ENCOUNTER → 2021-11-21 13:10 | Outpatient (BNVA) | payer MEDICARE, SELFPAY | PROVIDERS: PCP Registered Nurse; Visit Provider Urology | DX: N20.0 Calculus of kidney (principal); N28.1 Cyst of kidney, acquired | CPT/HCPCS: 99212 ==

== ENCOUNTER 2022-02-01 09:42 | Outpatient (REF) | payer MEDICARE, SELFPAY ==
--- NOTE | ~2022-02-01 | US_ITS ---
EXAMINATION: US EXTRACRANIAL CAROTID DUPLEX, BILATERAL CLINICAL INFORMATION: Cerebral infarcts, left endarterectomy, history of diabetes, hypertension, hyperlipidemia COMPARISON: Carotid duplex on 01/17/2021 TECHNIQUE: Real-time ultrasound and Doppler techniques (integrating B-mode 2-D vascular images, Doppler spectral analysis and color-flow Doppler imaging) were utilized to interrogate the extracranial carotid arteries, the vertebral arteries and proximal subclavian arteries bilaterally. The degree of stenosis is determined by criteria similar to NASCET. FINDINGS: Right Side: 1. There is mild atherosclerotic plaque seen in the bifurcation/proximal ICA region. 2. The common carotid artery PSV proximally is 69 cm/s and distally 64 cm/s. 3. The proximal internal carotid artery velocities are 11 cm/s systolic and 76 cm/s diastolic. 4. The proximal external carotid artery PSV is 116 cm/s. 5. The vertebral artery shows antegrade flow. 6. The subclavian artery waveforms are normal. Left Side: 1. There is mild atherosclerotic plaque seen in the bifurcation/proximal ICA region. 2. The common carotid artery PSV proximally is 78 cm/s and distally 73 cm/s. 3. The proximal internal carotid artery velocities are 80 cm/s systolic and 15 cm/s diastolic. 4. The proximal external carotid artery PSV is 85 cm/s. 5. The vertebral artery shows antegrade flow. 6. The subclavian artery waveforms are normal. US/US carotid duplex BI IMPRESSION: 1. RIGHT: Minimal, non-hemodynamically significant stenosis of the proximal right internal carotid artery corresponding to a 0-49% stenosis by velocity criteria. 2. LEFT: Minimal, non-hemodynamically significant stenosis of the proximal left internal carotid artery corresponding to a 0-49% stenosis by velocity criteria. 3. There is improvement in the category disease on the left compared to the prior exam.
== END 2022-02-01 09:43 | disposition home or self-care (01) ==
LOC: HO.HMGCX 09:42
PROVIDERS: PCP Registered Nurse; Visit Provider Surgery Vascular Surgery
DX: Z86.73 Personal history of transient ischemic attack (TIA), and cerebral infarction without residual deficits (principal)
CPT/HCPCS: 93880

== ENCOUNTER → 2022-02-05 08:37 | Outpatient (BNVA) | payer MEDICARE, SELFPAY | PROVIDERS: PCP Registered Nurse; Visit Provider Internal Medicine | DX: I25.10 Atherosclerotic heart disease of native coronary artery without angina pectoris (principal); I63.232 Cerebral infarction due to unspecified occlusion or stenosis of left carotid arteries; E11.8 Type 2 diabetes mellitus with unspecified complications; I10 Essential (primary) hypertension; E78.5 Hyperlipidemia, unspecified; F17.210 Nicotine dependence, cigarettes, uncomplicated | CPT/HCPCS: 99212 ==

== ENCOUNTER → 2022-02-06 14:06 | Outpatient (BNVA) | payer MEDICARE, SELFPAY | PROVIDERS: PCP Registered Nurse; Visit Provider Surgery Vascular Surgery | DX: I63.232 Cerebral infarction due to unspecified occlusion or stenosis of left carotid arteries (principal) | CPT/HCPCS: 99212 ==

== ENCOUNTER → 2022-07-23 14:36 | Outpatient (REF) | payer MEDICARE, SELFPAY ==
--- NOTE | 2022-07-23 14:39 | CA_ITS ---
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 Study Quality: Fair, contrast ECG Rhythm: Sinus Conclusions: - 1. Normal LV systolic function with mild LVH with grade 2 diastolic dysfunction with regional wall motion abnormality in LAD territory 2. Increased gradient across aortic valve suggestive of aortic stenosis of moderate severity, clinical correlation suggested 3. No gross pericardial effusion Findings Procedure Information Contrast agent, definity, is being given per protocol without apparent complications. Left Ventricle Normal left ventricular cavity size. There is mildly increased left ventricular wall thickness. The left ventricular systolic function is normal. The visually estimated ejection fraction is between 60-65%. Spectral Doppler is indicative of a pseudonormal filling pattern. E/E prime ratio is >15, consistent with elevated filling pressures. Evidence suggests grade II (moderate) diastolic dysfunction. Wall Motion Rest Echo Findings The apical inferior, apical lateral, apical septum, and mid anteroseptal segments are akinetic. The apex segment is dyskinetic. All other scored wall segments showed normal motion. Right Ventricle Normal right ventricular cavity size and systolic function. Atria Both atria are normal in size. There is no evidence of interatrial shunt. Aortic Valve The aortic valve was not well visualized. There is moderate aortic valve stenosis. The mean gradient is 18 mmHg. The aortic valve area is 1.08 cm2. Mitral Valve There is mild anterior and posterior mitral leaflet thickening. There is mild mitral annular calcification. There is trace mitral valve regurgitation. There is no mitral valve stenosis. Pulmonic Valve The pulmonic valve was not well visualized. Tricuspid Valve Likely normal tricuspid valve structure and function. Tricuspid regurgitation envelope is inadequate for calculation of right ventricular systolic pressure. Normal right atrial pressure. Great Vessels All visible segments of the aorta are normal in size. The pulmonary artery was not well visualized. Venous The inferior vena cava is normal in size and collapses greater than 50% with inspiration. Pericardium/Pleural There is no evidence of pericardial effusion. Prior Study Comparison Changes noted compared to prior study dated: 02/29/2020. regional wall motion abnormality in LAD territory noted Measurements 2D Linear Measurements IVSd: 1.35 0.6-0.9/0.6-1.0 cm LVIDd: 3.41 3.9-5.3/4.2-5.9 cm LVIDd Index: 1.80 2.4-3.2/2.2-3.1 cm/m2 LVIDs: 1.87 2.0-3.6 cm LVPWd: 1.27 0.7-1.1 cm LA Diam: 3.60 2.7-3.8/3.0-4.0 cm LAIDs Index: 1.90 1.5-2.3 cm/m2 LV Mass: 186.79 67-162/88-224 g LV Mass Index: 98.83 43-95/49-115 g/m2 LVOT Diam: 1.80 3.0+(-)1.3 cm 2D Systolic Function EF 4C: 58.00 >55% EF 2C: 70.50 >55% EF BiP: 65.90 >55% Mitral Valve MV VTI: 0.44 MV Pk Frankie: 1.18 MV Mn Frankie: 0.69 MV Pk Grad: 6.00 MV Mn Grad: 2.00 MV Pk E: 1.11 MV PK A: 1.04 MV Decel Time: 313.00 E/A: 1.10 E'Lateral: 5.98 E'Medial: 5.87 E/E' Med: 18.90 E/E' Lat: 18.60 PHT: 92.00 MVA PHT: 2.39 MVA Continuity: 1.81 Decel [place]: 3.54 Aortic Valve AoV Pk Frankie: 2.64 AoV Mn Frankie: 2.06 AoV VTI: 0.75 AoV Pk Grad: 28.00 Aov Mn Grad: 18.00 AMARILIS Cont.VTI: 1.08 LVOT LVOT Pk Frankie: 1.09 LVOT Mn Frankie: 0.81 LVOT VTI: 0.32 LVOT Pk Grad: 5.00 LVOT Mn Grad: 3.00 LVOT Diam: 1.80 LVOT Area: 2.54 Diastolic Function MV Pk E: 1.11 MV Pk A: 1.04 E/A: 1.10 E'Medial: 5.87 E/E' Med: 18.90 E' Laterial: 5.98 E/E' Lat: 18.60 Right Ventricle TAPSE (mm): 22.90 TVS' Frankie: 11.00 Tricuspid Valve RA Press: 3.00 Great Vessels Aorta Sinus of Valsalva: 2.71 2.0-3.[address] [place]: 1.83 1.7-3.4 cm Ao Asc: 3.10 2.1-3.4 cm Updated in Other Vendor System with Status of Final Nader Mcwilliams MD electronically signed on 07/24/2022 6:34:41 PM with status of Final
== END ==
LOC: HO.CARD 14:36
PROVIDERS: PCP Registered Nurse; Visit Provider Internal Medicine
DX: I25.10 Atherosclerotic heart disease of native coronary artery without angina pectoris (principal)
CPT/HCPCS: 93306; Q9957

== ENCOUNTER 2022-08-09 08:03 | Outpatient (REF) | payer MEDICARE, SELFPAY ==
[2022-08-09 09:24] LABS: Hematocrit 45.3 % (37.0-47.0); Hemoglobin 14.8 g/dl (12.0-16.0); Mean Corpuscular HGB Conc 32.7 g/dl (31.0-35.0); Mean Corpuscular Hemoglobin 32.3 pg (27.0-33.0); Mean Corpuscular Volume 98.9 fL (80.0-98.0); Mean Platelet Volume 10.9 fL (9.4-12.3); Platelet Count 211 X10*3/uL (160-400); Red Blood Count 4.58 X10*6/uL (4.20-5.50); Red Cell Distribution Width 13.3 % (11.0-16.0); White Blood Count 11.9 X10*3/uL (4.8-10.8)
[2022-08-09 09:36] LABS: INTERNATIONAL NORM RATIO 0.9 (0.9-1.1)
[2022-08-09 09:48] LABS: Anion Gap 14 (12-20); Blood Urea Nitrogen 12 mg/dL (9-16); Calcium 9.8 mg/dL (8.4-10.2); Carbon Dioxide 26 mmol/L (22-29); Chloride 104 mmol/L (96-108); Estimated Glomerular Filt Rate 47; Glucose Random 180 mg/dL (60-115); Potassium 4.9 mmol/L (3.3-5.1); Sodium 139 mmol/L (135-145)
== END 2022-08-09 08:04 | disposition home or self-care (01) ==
LOC: HO.LAB 08:03
PROVIDERS: PCP Registered Nurse; Referring Provider Registered Nurse; Visit Provider Internal Medicine
DX: I25.10 Atherosclerotic heart disease of native coronary artery without angina pectoris (principal); I70.90 Unspecified atherosclerosis; I63.232 Cerebral infarction due to unspecified occlusion or stenosis of left carotid arteries; I35.0 Nonrheumatic aortic (valve) stenosis; E11.8 Type 2 diabetes mellitus with unspecified complications; I10 Essential (primary) hypertension; E78.5 Hyperlipidemia, unspecified; F17.200 Nicotine dependence, unspecified, uncomplicated; Z71.6 Tobacco abuse counseling
CPT/HCPCS: 36415; 80048; 85027; 85610; 93005; 99212

== ENCOUNTER 2022-08-16 15:13 | Outpatient (REF) | payer MEDICARE, SELFPAY ==
--- NOTE | ~2022-08-16 | CT_ITS ---
EXAMINATION: CT CHEST WITHOUT CONTRAST CLINICAL INFORMATION: Aortic calcification and atherosclerosis COMPARISON: None available. TECHNIQUE: Multidetector volumetric CT imaging of the chest was done. Axial MIP volume rendering provided. Sagittal and coronal reformatted images were obtained. This CT examination was performed using dose optimization techniques as appropriate, variously including the following: *Automated exposure control *Adjustment of mA and/or kV according to patient size (this includes techniques or standardized protocols for targeted exams where dose is matched to indication/reason for exam; i.e. 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 LUNGS: The lungs are well-expanded and clear. There is a 6 mm nodule left upper lobe adjacent to the mediastinum on axial image 28/4. No additional nodules seen. There is no acute consolidation or groundglass density. There is a ill-defined parenchymal 1.5 cm density or focal atelectasis in the lingula axial image 40/4. A 3 m nodule is seen in right lower lobe subpleural-based axial image 39/4. MEDIASTINUM: The central trachea and the bronchi widely patent. The thyroid lobes are symmetric and normal. Heart size and the great vessels are normal caliber. There is no abnormal size mediastinal or hilar lymph nodes. No pericardial effusion seen. CORONARY ARTERY CALCIFICATION: Significant coronary artery calcifications are noted. PLEURA: There is no pleural effusion. No pleural mass or thickening. AXILLA: No lymphadenopathy. UPPER ABDOMEN: Visualized liver, spleen, pancreas and right adrenal gland is unremarkable. There is a left adrenal 1.6 cm lesion. There is a 3.6 cm cyst upper pole left kidney. OSSEOUS STRUCTURES: No aggressive lytic or sclerotic process. There is mild spondylosis mid and lower dorsal spine. CT/CT chest wo IV con IMPRESSION: This critical changes of thoracic aorta without aneurysmal dilatation. There is significant coronary artery calcifications. 6 greater nodule left upper lobe adjacent mediastinum and ill-defined opacity in the lingula likely focal atelectasis. 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 3.6 cm cyst upper pole left kidney. Fleischner guidelines were followed.
== END 2022-08-16 15:14 | disposition home or self-care (01) ==
LOC: HO.CT 15:13
PROVIDERS: Visit Provider Thoracic Surgery (Cardiothoracic Vascular Surgery)
DX: I70.0 Atherosclerosis of aorta (principal)
CPT/HCPCS: 71250

== ENCOUNTER 2022-08-17 08:07 | Outpatient (REF) | payer MEDICARE, SELFPAY ==
--- NOTE | ~2022-08-17 | US_ITS ---
EXAMINATION: US LOWER EXTREMITY VENOUS (REFLUX EXAM), BILATERAL CLINICAL INDICATION: Venous insufficiency COMPARISON: None. TECHNIQUE: Color flow triplex imaging and compression Doppler was performed to evaluate both the deep and the superficial systems bilaterally. To evaluate the superficial system, the examination was performed in the upright position. Color-flow Doppler ultrasound and compression ultrasound were utilized. In addition, maneuvers were utilized to demonstrate reflux. FINDINGS: 1. DEEP VENOUS ULTRASOUND OF THE RIGHT LOWER EXTREMITY: Common Femoral Vein: Compressible, normal respiratory variation and augmented flow. Femoral Vein: Compressible, normal color flow and augmentation. Popliteal Vein: Compressible, normal augmentation. Deep Reflux: There is no evidence of reflux in the deep system in either the common femoral vein or the popliteal vein. There is no evidence of a Thomas's cyst. 2. SUPERFICIAL ULTRASOUND WITH DOPPLER OF RIGHT LOWER EXTREMITY: GREAT SAPHENOUS VEIN: Saphenofemoral Junction: 0.7 cm; Reflux: 0 ms Proximal Thigh: 0.4 cm; Reflux: 0 ms Mid Thigh: 0.3 cm; Reflux: 0 ms Above Knee: 0.3 cm; Reflux: 0 ms At Knee: 0.4 cm; Reflux: 0 ms Below Knee: 0.3 cm; Reflux: 0 ms Mid Calf: 0.2 cm; Reflux: 0 ms Ankle: 0.3 cm; Reflux: 0 ms DUPLICATED MEDIAL GREAT SAPHENOUS VEIN: Diameter: None Imaged Reflux: NA DUPLICATED LATERAL GREAT SAPHENOUS VEIN: Diameter: None Imaged Reflux: NA SMALL SAPHENOUS VEIN: Proximal: 0.2 cm; Reflux: 0 ms Distal: 0.2 cm; Reflux: 0 ms VEIN OF GIACOMINI: Size: NA Reflux: NA PERFORATORS: Location: [place] Size: 0.3 cm Reflux: NA VARICOSITIES: Location: None Imaged Size: NA Reflux: NA 3. DEEP VENOUS ULTRASOUND OF THE LEFT LOWER EXTREMITY: Common Femoral Vein: Compressible, normal respiratory variation and augmented flow. Femoral Vein: Compressible, normal color flow and augmentation. Popliteal Vein: Compressible, normal augmentation. Deep Reflux: There is no evidence of reflux in the deep system in either the common femoral vein or the popliteal vein. There is no evidence of a Thomas's cyst. 4. SUPERFICIAL ULTRASOUND WITH DOPPLER OF LEFT LOWER EXTREMITY: GREAT SAPHENOUS VEIN: Saphenofemoral Junction: 0.7 cm; Reflux: 0 ms Proximal Thigh: 0.9 cm; Reflux: 0 ms Mid Thigh: 0.4 cm; Reflux: 0 ms Above Knee: 0.4 cm; Reflux: 0 ms At Knee: 0.3 cm; Reflux: 0 ms Below Knee: 0.3 cm; Reflux: 0 ms Mid Calf: 0.3 cm; Reflux: 0 ms Ankle: 0.4 cm; Reflux: 0 ms DUPLICATED MEDIAL GREAT SAPHENOUS VEIN: Diameter: None Imaged Reflux: NA DUPLICATED LATERAL GREAT SAPHENOUS VEIN: Proximal: 0.2 cm; Reflux: 0 ms Distal: 0.1 cm; Reflux: 0 ms SMALL SAPHENOUS VEIN: Proximal: 0.2 cm; Reflux: 0 ms Distal: 0.1 cm; Reflux: 0 ms VEIN OF GIACOMINI: Size: NA Reflux: NA PERFORATORS: Location: [place] Size: 0.2 cm Reflux: NA VARICOSITIES: Location: None Imaged Size: NA Reflux: NA US/US venous duplex LE BI IMPRESSION: 1. No evidence of DVT or deep venous reflux. 2. No significant reflux in the bilateral great saphenous veins or small saphenous veins.
--- NOTE | ~2022-08-17 | US_ITS ---
EXAMINATION: US EXTRACRANIAL CAROTID DUPLEX, BILATERAL CLINICAL INFORMATION: CVA, left endarterectomy, diabetes, hypertension, hyperlipidemia. COMPARISON: Carotid ultrasound 02/01/2022. TECHNIQUE: Real-time ultrasound and Doppler techniques (integrating B-mode 2-D vascular images, Doppler spectral analysis and color-flow Doppler imaging) were utilized to interrogate the extracranial carotid arteries, the vertebral arteries and proximal subclavian arteries bilaterally. The degree of stenosis is determined by criteria similar to NASCET. FINDINGS: Right Side: 1. There is mild atherosclerotic plaque seen in the bifurcation/proximal ICA region. 2. The common carotid artery PSV proximally is 61 cm/s and distally 53 cm/s. 3. The proximal internal carotid artery velocities are 49 cm/s systolic and 13 cm/s diastolic. 4. The proximal external carotid artery PSV is 74 cm/s. 5. The vertebral artery shows antegrade flow. 6. The subclavian artery waveforms are normal. Left Side: 1. There is mild atherosclerotic plaque seen in the bifurcation/proximal ICA region. 2. The common carotid artery PSV proximally is 83 cm/s and distally 57 cm/s. 3. The proximal internal carotid artery velocities are 121 cm/s systolic and 27 cm/s diastolic. 4. The proximal external carotid artery PSV is 113 cm/s. 5. The vertebral artery shows antegrade flow. 6. The subclavian artery waveforms are normal. US/US carotid duplex BI IMPRESSION: 1. RIGHT: Minimal, non-hemodynamically significant stenosis of the proximal right internal carotid artery corresponding to a 0-49% stenosis by velocity criteria. 2. LEFT: Minimal, non-hemodynamically significant stenosis of the proximal left internal carotid artery corresponding to a 0-49% stenosis by velocity criteria. 3. There is no change in the category severity of disease when compared to the previous study dated 02/01/2022.
== END 2022-08-17 08:08 | disposition home or self-care (01) ==
LOC: HO.US 08:07
PROVIDERS: PCP Registered Nurse; Visit Provider Thoracic Surgery (Cardiothoracic Vascular Surgery)
DX: I87.2 Venous insufficiency (chronic) (peripheral) (principal); R09.81 Nasal congestion; I70.0 Atherosclerosis of aorta; Z86.73 Personal history of transient ischemic attack (TIA), and cerebral infarction without residual deficits
CPT/HCPCS: 93880; 93970

== ENCOUNTER → 2022-10-15 11:09 | Outpatient (BNV) | payer MEDICARE, SELFPAY | PROVIDERS: PCP Internal Medicine; Visit Provider Internal Medicine | DX: D64.9 Anemia, unspecified (principal) | CPT/HCPCS: 99204; 99213 ==

== ENCOUNTER 2022-10-29 08:42 | Outpatient (AMB) | payer MEDICARE, SELFPAY ==
--- NOTE | 2022-10-29 08:46 | MHC.OFFVIS ---
Intake Vital Signs 10/29/22 08:47 Height 5 ft 6 in BMI Reason not done Patient refused/unable BP 96/62 Blood Pressure Location Lt brachial Position Sitting Pulse 72 Intake Visit Reasons: follow up Intake Note: follow up Tape Transferrer Required: No Allergies amoxicillin Allergy (Mild, Verified 10/29/22 08:47) RASH Medication List - Last Reconciled 10/29/22 by David Stone MD apixaban (Eliquis) 5 mg PO BID aspirin 81 mg PO DAILY atorvastatin 80 mg PO BEDTIME cholecalciferol (vitamin D3) 50 mcg PO DAILY digoxin 0.125 mg orally alternate days; epoetin elina (Procrit) 2,000 units subcut QWEEK ferrous sulfate 325 mg PO DAILY levofloxacin 500 mg PO DAILY metformin 500 mg PO DAILY metoprolol succinate ER 12.5 mg PO DAILY multivitamin with iron-mineral 1 tab PO DAILY pyridoxine (vitamin B6) 100 mg PO DAILY 90 days sennosides (Natural Senna Laxative) 8.6 mg PO BEDTIME sertraline 50 mg PO DAILY tamsulosin 0.4 mg PO DAILY tramadol 50 mg PO BEDTIME HPI HPI Comments History of Present Illness Details Dia returns for follow-up regarding coronary disease. She recently underwent coronary artery bypass surgery as well as bioprosthetic aortic valve replacement. She seems to have had a long hospitalization course. Per documentation, it seems that she underwent this surgery but then had atrial fibrillation rapid rate that required cardioversion as it was unstable. Then it seems echocardiogram at shown akinesis but she was taken to the biological lab technician and grafts are patent. Also had congestive heart failure. LVEF in the 20s. Overall, had a long course and she now has a wound VAC in place due to poor healing. Mainly deconditioning from all the procedures and long hospitalization stay. No clear-cut cardiac symptoms. Comes in a wheelchair. Has lost some nausea and difficulty with eating. [facility] Medical History (Updated 10/29/22 @ 11:47 by David Stone MD) Abnormal myocardial perfusion study Arthritis Atherosclerotic cardiovascular disease COVID-19 CVA (cerebral vascular accident) Depression Diabetes Essential hypertension Expressive aphasia Hx of cardiac murmur Hyperlipidemia Hypertension Lab test negative for COVID-19 virus Other and unspecified hyperlipidemia Paroxysmal atrial fibrillation Smoking Type 2 diabetes mellitus with unspecified complications Wears partial dentures Surgical History (Updated 10/29/22 @ 11:42 by David Stone MD) History of excision of pilonidal cyst Hx of dilation and curettage Status post aortic valve replacement with bioprosthetic valve Family History Father Heart attack Mother Heart attack Social History Household Members: None Housing: House Are you a primary acute care physical therapist to a significant other at home: Yes () Do you presently have visiting nurse or other home services: No Alcohol intake: never Patient Tobacco Use Status: Former Tobacco user Tobacco use type: Cigarette Cigarette Packs Per Day: 1 Years Smoked: 62 Second Hand Smoke Exposure: No Use of substances other than those prescribed or required for medical reasons: No Have you been hit, kicked, punched, or otherwise hurt by someone within the past year? If so, by whom?: No Do you feel safe in your current relationship?: No Current Relationship Do you have thoughts of harming others: None Do you have a plan to hurt others: No Plan Recently lost weight without trying: No service: No Current occupational status: employed and retired Review of Systems Const Denies weakness ENT Denies dizziness Card Denies chest pain, Denies chest pain with activity, Denies syncope, Denies rapid heart rate, Denies pedal edema, Denies edema, Denies leg edema, Denies lightheadedness, Denies palpitations, Denies dyspnea, Denies dyspnea on exertion and Denies orthopnea Resp Denies cough, Denies dyspnea and Denies dyspnea on exertion GI Denies hematochezia and Denies change in stool character Musc Denies abnormal gait, Denies muscle cramps, Denies muscle weakness, Denies numbness, Denies radiating pain into limb and Denies tingling Neuro Denies abnormal gait, Denies dizziness, Denies syncope, Denies numbness, Denies tingling and Denies weakness Endo Denies palpitations Physical Exam Vital Signs: Last Vital Signs Pulse 72 10/29/22 08:47 BP 96/62 10/29/22 08:47 Const General: comfortable and no acute distress Orientation/consciousness: patient oriented x3 HEENT Other: Unremarkable Head: Yes normal to inspection Neck Neck: Yes normal visual inspection Chest Chest palpation & inspection: normal inspection of the chest Resp Auscultation: clear to auscultation bilaterally Cardio Palpation: normal PMI Heart sounds: S1 normal heart sound present, S2 normal heart sound present, no gallops, Murmur heart sound present systolic II/ and at the right sternal border and no rubs GI Palpation (GI): Soft to palpation Back/Spine/Pelvis Other: unremarkable Skin General skin exam: no rashes or lesions noted Neuro General: patient oriented x3 Extrem General: Yes normal to inspection Psych Mental Status: mental status grossly normal Assessment & Plan Assessment & Plan (1) Atherosclerotic cardiovascular disease: Code(s): I25.10 - Atherosclerotic heart disease of [place] coronary artery without angina pectoris Plan: Status post coronary artery bypass surgery. Still has a wound VAC in place and will need to be followed by cardiac surgery for the foreseeable future. Continue aspirin high-dose statins. Eventually, we can follow-up on lipids. (2) Status post aortic valve replacement with bioprosthetic valve: Code(s): Z95.3 - Presence of xenogenic heart valve Plan: She also had bioprosthetic aortic valve replacement during the CABG -19mmHg Inspiris valve. Infective endocarditis prophylaxis per protocol. (3) Cardiomyopathy: Code(s): I42.9 - Cardiomyopathy, unspecified Plan: Possibly related to atrial fibrillation rapid rate. Per DARA at [facility], LVEF 30-40%. Distal inferoseptal/anteroseptal/apical hypokinesis. [id number] mitral regurgitation. Bioprosthetic aortic valve was okay. When she is a bit improved, we can recheck echocardiogram to see if the LVEF improved. Blood pressure is already on the lower side, in the 90s. May not be able tolerate Entresto. Will need to be monitored for now. (4) Paroxysmal atrial fibrillation: Code(s): I48.0 - Paroxysmal atrial fibrillation Plan: It seems she underwent cardioversion in the postoperative period. Had been on amiodarone but not anymore. She is on digoxin alternate days. She is having lot of nausea. Vascular addition probably sinus but difficult to say. Unable to EKG as she still has a wound VAC on with dressing. Last EKG from [facility] from October 19 shows sinus bradycardia. We can try to see if holding off on digoxin can help the nausea. Discussed. Otherwise continue Eliquis. She also on some beta-blockers. (5) LBBB (left bundle branch block): Code(s): I44.7 - Left bundle-branch block, unspecified Plan: EKG from [facility] from 10/19 shows left bundle-branch block. Will need to be followed. 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 Being also concurrently followed up with vascular surgery. (7) Essential hypertension: Code(s): I10 - Essential (primary) hypertension Plan: In the past, has been on losartan/amlodipine. Currently stable without medications. (8) Smoking: Code(s): F17.200 - Nicotine dependence, unspecified, uncomplicated Plan: Has stopped. Plan Discussed with daughter who came for appointment. Total time spent including review of all the [facility] documentation, counseling, documentation, coordination of care-50 minutes. 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
[2022-10-29 08:47] VITALS: BP 96/62; PULSE 72
== END 2022-10-29 09:24 | disposition home or self-care (01) ==
PROVIDERS: PCP Internal Medicine; Referring Provider Internal Medicine; Visit Provider Internal Medicine
DX: I25.10 Atherosclerotic heart disease of native coronary artery without angina pectoris (principal); Z95.3 Presence of xenogenic heart valve; I42.9 Cardiomyopathy, unspecified; I48.0 Paroxysmal atrial fibrillation; I44.7 Left bundle-branch block, unspecified; I63.232 Cerebral infarction due to unspecified occlusion or stenosis of left carotid arteries; I10 Essential (primary) hypertension; F17.200 Nicotine dependence, unspecified, uncomplicated
CPT/HCPCS: 99215

== ENCOUNTER → 2022-10-29 08:42 | Outpatient (BNVA) | payer MEDICARE, SELFPAY | PROVIDERS: PCP Internal Medicine; Referring Provider Internal Medicine; Visit Provider Internal Medicine | DX: I42.9 Cardiomyopathy, unspecified (principal); I44.7 Left bundle-branch block, unspecified; I63.232 Cerebral infarction due to unspecified occlusion or stenosis of left carotid arteries; I48.0 Paroxysmal atrial fibrillation; I25.10 Atherosclerotic heart disease of native coronary artery without angina pectoris; I10 Essential (primary) hypertension; D64.9 Anemia, unspecified; Z87.891 Personal history of nicotine dependence; Z95.1 Presence of aortocoronary bypass graft; Z95.3 Presence of xenogenic heart valve; Z98.890 Other specified postprocedural states; Z79.82 Long term (current) use of aspirin; Z79.84 Long term (current) use of oral hypoglycemic drugs | CPT/HCPCS: 99212 ==

== ENCOUNTER 2022-11-15 00:40 | Emergency (ER) | payer MEDICARE, SELFPAY ==
[2022-11-15 00:43] VITALS: BP 142/65; PULSE 60; RESP 18; TEMP 36.4; O2SAT 98; BMI 27.3
--- OUTSIDE RECORDS SUMMARY | 2022-11-15 06:28 | XMS_ITS | Continuity of Care Document ---
Author Name Unknown Organization [facility] Julian brenna Address [address] [place], [place] [address]ern[place]ina [place] [address]- Care Team Providers Care Senior Audit Manager Name Role Phone Not on Staff, PCP Primary Care Physician Unavail able [place] [facility]/29[place]22 - 09/28/22 [facility] [address] [place] [phone]- Referring Physician: Cristina Butts MD Allergies, Adverse Reactions, Alerts Substance Reaction Severity Status amoxicillin Hives Active Medications acetaminophen 325 mg oral tablet 975 mg, By Mouth, Every 8 hours, Refills 0, Maintenance, 09/24/22 12:39:00 EDT, Partial fill upon patient request if the prescription is for a schedule II opioid drug. Start Date: 09/24/22 Status: Ordered apixaban = 5 mg, By Mouth, 2 times a day, 0 Refills, Maintenance, 09/24/22 12:39:00 EDT, Tablet, Partial fill upon patient request if the prescription is for a schedule II opioid drug. Start Date: 09/24/22 Status: Ordered aspirin 81 mg oral capsule 1 capsule = 81 mg, By Mouth, Daily, 0 Refills, Maintenance, 08/10/22 10:40:00 EDT, Partial fill upon patient request if the prescription is for a schedule II opioid drug. Start Date: 08/10/22 Status: Ordered atorvastatin 40 mg oral tablet = 40 mg, By Mouth, Daily at bedtime, 0 Refills, Maintenance, 09/24/22 12:38:00 EDT, Tablet, Partialfill upon patient request if the prescription is for a schedule II opioid drug. Start Date: 09/24/22 Status: Ordered B 100 Complex oral tablet 1 tablet, By Mouth, Daily, # 100 tablet, 0 Refills, Maintenance, 08/27/22 10:28:00 EDT, Tablet, Partial fill upon patient request if the prescription is for a schedule II opioid drug. Start Date: 08/27/22 Status: Ordered digoxin 0.125 mg oral tablet 0.125 mg, By Mouth, Every 48 hours, Refills 0, Maintenance, 09/24/22 12:39:00 EDT, Partial fill upon patient request if the prescription is for a schedule II opioid drug. Start Date: 09/24/22 Status: Ordered Docusate/Senna Tablet 2 tablet, By Mouth, Daily, 0 Refills, Maintenance, 09/24/22 12:39:00 EDT, Tablet, Partial fill uponpatient request if the prescription is for a schedule II opioid drug. Start Date: 09/24/22 Status: Ordered Epoetin Rodrigo 2 mL = 20,000 units, Subcutaneous Injection, Every week, 0 Refills, Maintenance, 09/24/22 12:40:00 EDT, Injection, Partial fill upon patient request if the prescription is for a schedule II opioid drug. Start Date: 09/24/22 Status: Ordered ferrous sulfate 325 mg oral enteric coated tablet 325 mg, By Mouth, Daily, Refills 0, Maintenance, 09/24/22 12:40:00 EDT, Partial fill upon patient request if the prescription is for a schedule II opioid drug. Start Date: 09/24/22 Status: Ordered Flomax 0.4 mg oral capsule 0.4 mg, By Mouth, Daily, Refills 0, Maintenance, 09/24/22 12:42:00 EDT, Partial fill upon patient request if the prescription is for a schedule II opioid drug. Start Date: 09/24/22 Status: Ordered Folic Acid Daily, 0 Refills, Maintenance, 08/27/22 10:31:00 EDT, Partial fill upon patient request if the prescription is for a schedule II opioid drug. Start Date: 08/27/22 Status: Ordered lidocaine 5% topical film Topically, Daily, 0 Refills, Maintenance, 09/24/22 12:40:00 EDT, Patch, Partial fill upon patient request if the prescription is for a schedule II opioid drug. Start Date: 09/24/22 Status: Ordered LIPOSOMAL VITAMIN C LIPOSOMAL VITAMIN C, 1, tablet, By Mouth, Daily, Refills 0, Maintenance, 08/27/22 10:30:00 EDT, Supply Start Date: 08/27/22 Status: Ordered metFORMIN 500 mg oral tablet 1 tablet = 500 mg, By Mouth, 2 times a day, Monitor renal function prior to dose change., # 14 tablet, 0 Refills, Maintenance, 09/24/22 12:51:00 EDT, Tablet, [facility], Partial fill upon patient request if the prescription is for a sche... Start Date: 09/24/22 Stop Date: 10/01/22 Status: Ordered MiraLax Powder 1 pack/packet = 17 Gm, By Mouth, Daily, 0 Refills, Maintenance, 09/24/22 12:41:00 EDT, Powder, Partial fill upon patient request if the prescription is for a schedule II opioid drug. Start Date: 09/24/22 Status: Ordered Multivit Therapeutic/Minerals Tablet 1 tablet, By Mouth, Daily, 0 Refills, Maintenance, 09/24/22 12:41:00 EDT, Tablet, Partial fill uponpatient request if the prescription is for a schedule II opioid drug. Start Date: 09/24/22 Status: Ordered Nystatin Powder 1 applicator, Topically, 2 times a day, 0 Refills, Maintenance, Powder Start Date: 09/24/22 Status: Ordered Remove Patch Start Date: 09/24/22 Status: Ordered sertraline 25 mg oral tablet = 25 mg, By Mouth, Daily, 0 Refills, Maintenance, 09/24/22 12:41:00 EDT, Tablet, Partial fill upon patient request if the prescription is for a schedule II opioid drug. Start Date: 09/24/22 Status: Ordered Toprol XL 25 mg oral tablet, extended release 12.5 mg, 0.5, tablet, By Mouth, Daily, Refills 0, Maintenance, 09/24/22 12:38:00 EDT, Partial fill upon patient request if the prescription is for a schedule II opioid drug. Start Date: 09/24/22 Status: Ordered Vashe Topical Solution 475 mL, Topically, Every 12 hours, 0 Refills, Maintenance, Solution Start Date: 09/24/22 Status: Ordered Vitamin D3 50 mcg (2000 intl units) oral tablet, chewable 1 tablet = 50 mcg, By Mouth, Daily, 0 Refills, Maintenance, 08/27/22 10:30:00 EDT, Partial fill upon patient request if the prescription is for a schedule II opioid drug. Start Date: 08/27/22 Status: Ordered Problem List Condition Confirmation Course Effective Dates Status Health St atus Informant Acute myocardial infarction of anterior wall Confirmed Active Atrial fibrillation with RVR Confirmed Active Cardiogenic shock Confirmed Active Diabetes mellitus - adult onset Confirmed Active Heart failure with reduced ejection fraction Confirmed Active Hypertension Confirmed Active Obese class I Confirmed Active Right heart failure due to left heart failure Confirmed Active Patient Care team information Care Team Personnel Name: Daniella Doyle RN Position: S RN Member Role: Primary Care Nurse Name: Lia Stiles RN Position: [facility] RN Supv Member Role: Primary Care Nurse Name: Felicia Mendez RN Position: S RN Member Role: Primary Care Nurse Name: Ralf Beach RN Position: S RN Member Role: Primary Care Nurse Name: Juan Prado RN Position: [facility] RN Member Role: Primary Care Nurse Name: Myranda Evangelista RN Position: [facility] RN Member Role: Primary Care Nurse Name: Delisa Rodriguez LPN Position: [facility] RN Member Role: Primary Care Nurse Name: Chris Collier RN Position: [facility] RN Member Role: Primary Care Nurse Name: Kelly Sotelo RN Position: [facility] RN Member Role: Primary Care Nurse Name: Dain Villafana RN Position: [facility] RN Member Role: Primary Care Nurse Name: Not on Staff, PCP Position: [facility] Physician (General Medicine) Member Role: PCP Name: Chris Logan RN Position: [facility] RN Member Role: Primary Care Nurse Name: Nury Romero RN Position: [facility] RN Member Role: Primary Care Nurse Name: Jamee Kothari RN Position: [facility] RN Member Role: Primary Care Nurse Name: Radha Bob Position: [facility] RN Member Role: Primary Care Nurse Care Team Related Persons Name: CAN BERNARD Address: home [address] [place] [id number] Name: MARGARITO AYDEN Address: [address] [place] [address]
--- OUTSIDE RECORDS SUMMARY | 2022-11-15 06:28 | XMS_ITS | Continuity of Care Document ---
Author Name Unknown Organization [facility] Julian brenna Address [address] [place], [place] [address]ernestina [place] [address]- Care Team Providers Care Platform Operations Director Name Role Phone Not on Staff, PCP Primary Care Physician Unavail able Encounter [facility] Date(s): 08/28/22 - 09/27/22 [facility] Surgery [address] [place] [phone]- Allergies, Adverse Reactions, Alerts Substance Reaction Severity [...] 0 Refills, Maintenance, 09/24/22 12:51:00 EDT, Tablet, [facility], Partial fill upon patient request if [...] Care Nurse Name: Lia Stiles RN Position: [facility] RN Supv Member Role: Primary Care Nurse Name: Felicia Mendez RN Position: S RN Member Role: Primary Care Nurse Name: Ralf Beach RN Position: S RN Member Role: Primary Care Nurse Name: Juan Prado RN Position: S RN Member Role: Primary Care Nurse Name: Myranda Evangelista RN Position: S RN Member Role: Primary Care Nurse Name: Delisa Rodriguez LPN Position: S RN Member Role: Primary Care Nurse Name: Chris Collier RN Position: [facility] RN Member Role: Primary Care Nurse Name: Kelly Sotelo RN Position: S RN Member Role: Primary Care Nurse Name: Dain Villafana RN Position: S RN Member Role: Primary Care Nurse Name: Not on Staff, PCP Position: [facility] Physician (General Medicine) Member Role: PCP Name: Chris Logan RN Position: [facility] RN Member Role: Primary Care Nurse Name: Nury Romero RN Position: [facility] RN Member Role: Primary Care Nurse Name: Jamee Kothari RN Position: [facility] RN Member Role: Primary Care Nurse Name: Radha Bob Position: S RN Member Role: Primary Care Nurse Care Team Related Persons Name: CNA BERNARD Address: home [address] [place] [id number] Name: ROMAN PIMENTELGH Address: home [address] [place] [id number]
--- OUTSIDE RECORDS SUMMARY | 2022-11-15 06:28 | XMS_ITS | Continuity of Care Document ---
Author Name Unknown Organization [facility] Julian brenna Address [address] [place] [address] [place] [address]- Care Team Providers Care Dining Car Conductor Name Role Phone Not on Staff, PCP Primary Care Physician Unavail able Encounter [facility] Date(s): 08/13/22 - 09/12/22 [facility] [address] [place] [id number]- Allergies, Adverse Reactions, Alerts Substance Reaction Severity Status amoxicillin Hives Active Medications amlodipine 10 mg oral tablet 10, mg, 1, tablet, By Mouth, Daily, 90, tablet, 1, 1, 11/21/07 9:00:49, Print HARINI Number, [id number], Constant Indicator Start Date: 11/21/07 Stop Date: 05/19/08 Status: Ordered aspirin 81 mg oral capsule 1 capsule = 81 mg, By Mouth, Daily, 0 Refills, Maintenance, 08/10/22 10:40:00 EDT, Partial fill upon patient request if the prescription is for a schedule II opioid drug. Start Date: 08/10/22 Status: Ordered atorvastatin 80 mg oral tablet 1 tablet = 80 mg, By Mouth, Daily, 0 Refills, Maintenance, 08/10/22 10:39:00 EDT, Partial fill uponpatient request if the prescription is for a schedule II opioid drug. Start Date: 08/10/22 Status: Ordered B 100 Complex oral tablet 1 tablet, By Mouth, Daily, # 100 tablet, 0 Refills, Maintenance, 08/27/22 10:28:00 EDT, Tablet, Partial fill upon patient request if the prescription is for a schedule II opioid drug. Start Date: 08/27/22 Status: Ordered Folic Acid Daily, 0 Refills, Maintenance, 08/27/22 10:31:00 EDT, Partial fill upon patient request if the prescription is for a schedule II opioid drug. Start Date: 08/27/22 Status: Ordered LIPOSOMAL VITAMIN C LIPOSOMAL VITAMIN C, 1, tablet, By Mouth, Daily, Refills 0, Maintenance, 08/27/22 10:30:00 EDT, Supply Start Date: 08/27/22 Status: Ordered losartan 100 mg oral tablet 1 tablet = 100 mg, By Mouth, Daily, 0 Refills, Maintenance, 08/10/22 10:39:00 EDT, Partial fill upon patient request if the prescription is for a schedule II opioid drug. Start Date: 08/10/22 Status: Ordered Magnesium Chloride 0 Refills, Maintenance, 08/27/22 10:29:00 EDT, Partial fill upon patient request if the prescription is for a schedule II opioid drug. Start Date: 08/27/22 Status: Ordered metoprolol 50 mg oral tablet 50, mg, 1, tablet, By Mouth, 2 times a day, 60, tablet, 5, 5, 11/07/07 9:55:12, Print HARINI Number, [id number], Constant Indicator Start Date: 11/07/07 Stop Date: 05/05/08 Status: Ordered Plavix 75 mg oral tablet 75 mg, 1, tablet, By Mouth, Daily, Refills 0, Maintenance, 08/10/22 10:38:00 EDT, Partial fill uponpatient request if the prescription is for a schedule II opioid drug. Start Date: 08/10/22 Status: Ordered Vitamin D3 50 mcg (2000 [...] due to left heart failure Confirmed Active Cardiac surgery Outpatient Note * Ramya Hyde RN: PERFORM Event Display: Cardiac Surgery Note Office Authored Date: [id number] Patient reports plavix has been on hold for 2 weeks and losartan has been held for 3 days. Patient and her daughter given verbal instructions to continuous pickling line pickler CHG liquid soap and sent an email with writteninstructions on how to use the soap for bathing this evening. Patient verbalized understanding the below instructions: 1. No solid food after 12mn. Clear liquids until 3:30AM. 2. Preop CHG bathing this evening. 3. Arrive at [facility] at 5:30AM. 4. Bring photo ID and insurance card the day of surgery. 5. Take aspirin and metoprolol prior to coming to the hospital. Patient Care team information Care Team Personnel Name: Lia Stiles RN Position: S RN Supv Member Role: Primary Care Nurse Name: Felicia Mendez RN Position: S RN Member Role: Primary Care Nurse Name: Ralf Beach RN Position: S RN Member Role: Primary Care Nurse Name: Kelly Sotelo RN Position: S RN Member Role: Primary Care Nurse Name: Not on Staff, PCP Position: S Physician (General Medicine) Member Role: PCP Name: Nury Romero RN Position: S RN Member Role: Primary Care Nurse Name: Jamee Kothari RN Position: S RN Member Role: Primary Care Nurse Name: Radha Bob Position: S RN Member Role: Primary Care Nurse Care Team Related Persons Name: CAN BERNARD Address: home [address] [place] [id number] Name: AYDEN PIMENTEL Address: home [address] [place] [id number]
--- OUTSIDE RECORDS SUMMARY | 2022-11-15 06:29 | XMS_ITS | Continuity of Care Document ---
Author Name Unknown Organization [facility] ter Address [address] [place] [address]- Care Team Providers Care Desk Director Name Role Phone Ian JACOBSON, Mini Lewis Primary Care Physician [place] [facility] [place]): [place] - 08/10/[address] [address]- Discharge Disposition: A-D/C Home Attending Physician: Allan Morgan MD Admitting Physician: Allan Morgan MD Referring Physician: David Stone MD Allergies, Adverse Reactions, Alerts Substance Reaction Severity Status amoxicillin Active Medications amlodipine 10 mg oral tablet 10, mg, 1, tablet, By Mouth, Daily, 90, tablet, 1, 1, 11/21/07 9:00:49, Print HARINI Number, [id number], Constant Indicator Start Date: 11/21/07 Stop Date: [...] opioid drug. Start Date: 08/10/22 Status: Ordered losartan 100 mg oral tablet 1 tablet = 100 mg, By Mouth, Daily, 0 Refills, Maintenance, 08/10/22 10:39:00 EDT, Partial fill upon patient request if the prescription is for a schedule II opioid drug. Start Date: 08/10/22 Status: Ordered metoprolol 50 mg oral tablet 50, mg, 1, tablet, By Mouth, 2 times a day, 60, tablet, 5, 5, 11/07/07 9:55:12, Print HARINI Number, [id number], Constant Indicator Start Date: 11/07/07 Stop Date: 05/05/08 Status: Ordered Plavix 75 mg oral tablet 75 mg, 1, tablet, By Mouth, Daily, Refills 0, Maintenance, 08/10/22 10:38:00 EDT, Partial fill uponpatient request if the prescription is for a schedule II opioid drug. Start Date: 08/10/22 Status: Ordered Problem List Condition Confirmation Course Effective Dates Status Health St atus Informant Diabetes mellitus - adult onset Confirmed Active Hypertension Confirmed Active Obese class I Confirmed Active Vital Signs Most recent to oldest [Reference Range]: 1 2 3 Height 165.1 cm (08/10/22 8:27 AM) Weight 83 kg (08/10/22 8:27 AM) Oxygen Saturation [94-100 %] 95 % (08/10/22 1:00 PM) 95 % (08/10/22 12:30 PM) 96 % (08/10/22 12:00 PM) Pulse Rate [55-90 bpm] 63 bpm (08/10/22 8:27 AM) Body Mass Index [18.5-24.99 kg/m2] 30.45 kg/m2 *>HHI* (08/10/22 8:27 AM) Blood Pressure [90-138/55-84 mm Hg] 100/65mm Hg (08/10/22 1:00 PM) 116/62mm Hg (08/10/22 12:30 PM) 122/66mm Hg (08/10/22 12:00 PM) Respiratory Rate [16-30 br/min] 18 br/min (08/10/22 10:45 AM) 18 br/min (08/10/22 10:30 AM) 10 br/min *L* (08/10/22 10:15 AM) Temperature [96.8-100.4 DegF] 97.7 DegF (08/10/22 8:27 AM) Mode of Delivery (Oxygen) Room air (08/10/22 1:00 PM) Room air (08/10/22 9:45 AM) Room air (08/10/22 8:27 AM) Blood pressure sites Arm, right (08/10/22 9:45 AM) Arm, right (08/10/22 8:27 AM) Temperature Route Temporal (08/10/22 8:27 AM) Dry Weight 83 kg (08/10/22 8:27 AM) Weight Obtained Via Standing scale (08/10/22 8:27 AM) Dry Weight Obtained Via Standing scale (08/10/22 8:27 AM) Cardiac catheterization study * Event Display: Cardiac Stunt Man Report Authored Date: * Event Display: Cardiac Stunt Man Report Authored Date: Cardiac Diagnostic Report Demographics Patient Name JOANA REINA Gender Female [employer] Room Number B211 Height 65 inches Date of 1945 Weight 182.98 pounds Age 77 year(s) BSA 1.9 m2 Accession Number [id number] BMI 30.45 kg/m2 Referring Physician Allan Morgan MD Date of Study 08/10/2022 David Lewis NP Performing Physician Allan Morgan MD Fellow Interventional Physician Procedure Procedure Type Diagnostic procedure:Coronary Angiography with [facility] ACC Diagnostic Catheterization Status:Urgent Indications Indications: Angina. Current Diagnosis:ACS. Clinical History Admission Medications + +------+-------+ + + +---------+ !Medication !Dosage!Times !Last !Last !Administered !Comments ! ! ! !Per Day!Delivery !Delivery ! ! ! ! ! ! !Date !Time ! ! ! + +------+-------+ + + +---------+ !Aspirin (any)!81 mg !x 1 !08/10/2022 !00:00 !Yes ! ! + +------+-------+ + + +---------+ !Beta Dez !50 mg !x 2 !08/10/2022 !00:00 !Yes ! ! !(any) ! ! ! ! ! ! ! + +------+-------+ + + +---------+ !ARB (any) !100 mg!x 1 !08/10/2022 !00:00 !Yes ! ! + +------+-------+ + + +---------+ !Calcium !10 mg !x 1 !08/10/2022 !00:00 !Yes ! ! !Channel ! ! ! ! ! ! ! !Dez ! ! ! ! ! ! ! + +------+-------+ + + +---------+ !Statin (any) !80 mg !x 1 !08/09/2022 !00:00 !Yes ! ! + +------+-------+ + + +---------+ !Clopidogrel !75 mg !x 1 !08/10/2022 !00:00 !Yes ! ! + +------+-------+ + + +---------+ Clinical Evaluation Leading to Procedure - The patient's CAD presentation was assessed as: Stable angina. - The patient's anginal syndrome during the past two weeks was assessed as: Class II according to the [place] Cardiovascular Society Classification System (CCS). Anti-anginal medications were prescribed during the past two weeks. The medications are: Beta Blockers and Ca channel Blockers. ACC Risk Factors The patient risk factors include:previous vascular surgery;peripheral arterial disease, obesity, cerebrovascular disease, physical activity, treated and uncontrolled hypercholesterolemia, treated and uncontrolled hypertension, orally-treated diabetes mellitus, chronic lung disease, dyslipidemia and Current - Every day tobacco use. Additional Clinical History:77 year old female with multiple risk factors presenting with chest discomfort which happened couple of months ago. She was seen in the office and ECG showed poor R wave progression. Echo showed normal LVEF with LAD territory RWMA. She is referred to us for a diagnostic coronary angiogram. Procedure Data Procedure Date Date: 08/10/2022Start: 08:58End: 09:30 The procedure was explained in detail to the patient. Risks, complications and alternative treatments were reviewed. Written consent was obtained. Entry Locations - Retrograde Percutaneous access was performed through the Right Radial artery (Primary location). A 6 Fr sheath was inserted. Closure Comments: 12cc. Procedure Medications - Versed (Midazolam) I.V. 1 mg. - Fentanyl I.V. 50 mcg. - Lidocaine 2% S.C. Right Wrist 3 ml. - Nitroglycerin I.A. 200 mcg. - Heparin I.V. 4000 units. - 0.9NS I.V. 100 ml/hr. Sedation: My intra-service moderate sedation time was: from 906 to 929. Refer to procedural log for detailed chronological information. Contrast Material - Omnipaque 30 ml Diagnostic Catheters - A5F JR 4.0 DxTERITY DIAGNOSTIC CATHETERwas used for: Left heart catheterization. - A5F JL 3.5 DXTERITY DIAGNOSTIC CATHETERwas used for: Left coronary angiography. - A5F JR 4.0 DxTERITY DIAGNOSTIC CATHETERwas used for: Right coronary angiography. Fluoroscopy Time: Diagnostic: 1:34 minutes. Total: 1:34 minutes. Fluoroscopy Dose: Diagnostic: 137 mGy. Total: 137 mGy. Dose Area Product:Diagnostic: 11.4 mGy/cm2. Total: 11.4 mGy/cm2. Procedure Narrative We accessed the RRA using a 6 Fr sheath. We crossed into LV and recorded LVEDP. Diagnostic angio using JR 4 and JL 3.5. Hemostasis with regular TR band. Angiographic Findings Cardiac Arteries and Lesion Findings LAD: Lesion in Prox LAD: Proximal subsection.75% stenosis . Pre procedure KRISTYN III flow was noted. Good runoff was present.The lesion was heavily calcified. Lesion in 1st Diag: Mid subsection.90% stenosis . Lesion in Mid LAD: 70% stenosis . Lesion in Dist LAD: 80% stenosis . LCx: Proximal segment 60% stenosis. RCA: Lesion in Prox RCA: Proximal subsection.100% stenosis .Chronic total occlusion. Hemodynamics Condition: Rest O2 Consumption: Estimated: 175.87Heart Rate: 74 bpm Pressures (mmHg) +-----+ + !Site !Pressure ! +-----+ + !LV !143/10 ,18 ! +-----+ + !AO !124/48 (78)! +-----+ + !LV !143/10 ,18 ! +-----+ + Valve Gradients and Areas +------+----+----+----+-----+----+------+ !Valve !Peak!Mean!Area!Index!Flow!Source! +------+----+----+----+-----+----+------+ !Aortic!19 !25 ! ! ! ! ! +------+----+----+----+-----+----+------+ !Aortic!19 !25 ! ! ! ! ! +------+----+----+----+-----+----+------+ Shunts Oxygen Values O2 Capacity 201.28 O2 Consumption 175.87 Interventional Procedure Conclusions Diagnostic Summary 77 year old female presenting with stable angina and LAD territory wall motion abnormality. Hemodynamics: Normal systemic pressures. Mildly elevated LVEDP 16 mm Hg. There is mean gradient across AV 25 mm Hg. Coronary anatomy: right dominant circulation. Proximal RCA [employer] WORK[employer] with left to right collaterals. Severe LAD and diagonal stenosis. Heavy calcification in the LAD. 65% proximal LCx disease. We are referring the patient for CT surgery evaluation. Diagnostic Recommendations Continue aspirin 81 mg/day indefinitely. Stop the Plavix. Aggressive secondary risk factor modification according to ATP III guidelines. Referring for CABG. ACC Diagnostic Recommendations: CABG. Complications:None. Signatures EKG study * Event Display: ECG 12-Lead Authored Date: Please click on pdf link to open report * Event Display: ECG 12-Lead Authored Date: Ventricular Rate: 67 BPM Atrial Rate: 67 BPM P-R Interval: 196 ms QRS Duration: 68 ms Q-T Interval: 398 ms QTC Calculation(Bazett): 420 ms P [place]: -2 degrees R [place]: 10 degrees T [place]: 108 degrees Normal sinus rhythm with sinus arrhythmia Low voltage QRS Possible Inferior infarct , age undetermined Cannot rule out Anteroseptal infarct , age undetermined Abnormal ECG No previous ECGs available Confirmed by ROSA ISELA GALLEGOS ([id number]) on 08/10/2022 10:14:44 AM [place]: ROSA ISELA GALLEGOS Deprecated Cardiac rehabilitation treatment plan Progress note and attainment of goals (narrative) * Channing Bonilla: PERFORM, SIGN, VERIFY Event Display: Cardiac Rehab Note Authored Date: [id number] Patient: LATOSHA BERNARD Age: 77 years Sex: Female : 1945 Associated Diagnoses: None Author: Channing Bonilla Diagnosis Cardiac Rehab Diagnosis: Pt will need a CABG, will sign off and F/U Post OP.. Note * Ely Dialey RN: PERFORM Event Display: Discharge/Transfer Note Hospital Authored Date: [id number] Nursing Discharge Note Entered On: 08/10/2022 13:57 EDT Performed On: 08/10/2022 13:53 EDT by Ely Dailey RN Nursing Discharge Note 2 Discharge Time : 08/10/2022 13:38 EDT Discharge Level of Care at Discharge : Home/Fpc/Foster Care Patient Left Unit Via : Wheelchair Patient Accompanied Off Unit with : Responsible adult DC Instructions Provided & Signed by Pt : Yes Patient Understands D/C Instructions : Yes Verbalized Understanding of D/C Plan By : Family, Patient Patient Instructions Discharge Signed : Yes Did Pt have Specialty Bed or Wound Vac : No Ely Dailey RN - 08/10/2022 13:53 EDT * Lilia Hahn RN: PERFORM Event Display: Patient Education/Instruction Authored Date: [id number] Inpatient Adult Discharge Instructions [address] [address] Name: LATOSHA BERNARD : 1945 Visit: 08/10/2022 06:20:00 Current Date: 08/10/2022 12:36 Account: [id number] Inpatient Adult Discharge Instructions We would like to thank you for allowing us to assist you with your healthcare needs. The following includes patient education materials and information regarding your injury/illness. Our entire staffstrives to provide an excellent experience for our patients and their families. PLEASE ENSURE YOU FOLLOW-UP PER THE INSTRUCTIONS BELOW! ?? YOUR OPINION IS IMPORTANT TO US! Please complete the survey you may receive by mail or email. Your feedback will be used to make improvements to the healthcare experiences of our patients and their families. Surveys are administered by [employer]. ?? If further treatment with your primary care physician or another doctor is recommended, it is important for you to keep the appointment. Call your primary care physician or return to the Emergency Department immediately if your condition worsens, fails to improve, or new symptoms develop. If you need to find a doctor, you can call [facility] [employer] for a referral at [phone] or toll free at [phone] or log in to [email or web address] Experience.. ?? You can view and manage your care through the patient portal or by using a health care alonzo of your choosing. [employer] is a website that allows you to securely view your medical information including your hospital discharge summary, office visit summaries, medications and follow-up visits. You can also request appointments, renew medications, and request access to your medical information using a health care alonzo of your choosing, or just ask a question. You can enroll at [email or web address] or register during your next office visit. You have been discharged from [facility], Patient Care Unit: CARE. If you have any questions regarding these instructions after you leave, please call us and we will be happy to assist you. [facility] Your Care Team Attending Physician Allan Morgan MD Discharging Providers Allan Morgan MD Reason for Your Visit ABN STRESS TEST [facility] QUESPCI DST HV2 8217 ARR Tests Performed Below is a partial list of the tests performed during your hospitalization. You may have had other tests and procedures not included in this list. Please discuss all test results with your provider. GLUCOSE POC Type and Screen Primary Care Provider Mini Sosa NP Advance Directive . Discharge Vitals Temperature: 97.7 DegF Height: 165.1 cm Pulse Rate: 63 bpm Weight: 83 kg Respiratory Rate: 18 br/min Body Mass Index:??30.45 kg/m2??Critical Systolic Blood Pressure: 100 mm Hg Body surface area: 1.95 Diastolic Blood Pressure: 59 mm Hg ?? Oxygen Saturation:??92 %??Low ?? Studies Pending All tests and labs ordered during this hospital stay have been completed unless listed below. Please discuss all pending results with your provider listed above in these instructions. ?? No incomplete studies found What to do next Instructions From Your Doctor Discharge Orders You Need to Schedule the Following Appointments Follow Up with??Mini Sosa NP When:??Only if needed Where: [address] [place] [id number]- Follow Up with??Chase JORDAN, David When:??Only if needed Where: [address] [place] [address] [address] [facility] [place] [address]- Follow Up with??Shelli JORDAN, Chad Palma When:??Only if needed Where: [address] [place] [address] [place] [address]- Discharge Medications LATOSHA BERNARD :1945 Visit Date:08/10/2022 Medications: Please continue your medications until treatment is completed or stopped by your provider. Medications not listed below should be discontinued. Discuss any questions related to medications with your provider. What How Much When Instructions Next Dose Unchanged Amlodipine (amlodipine 10 mg oral tablet) 1 tab(s) Oral Daily Duration: 90 Days resume home schedule Unchanged Aspirin (aspirin 81 mg oral capsule) 1 capsule Oral Daily resume home schedule Unchanged Atorvastatin (atorvastatin 80 mg oral tablet) 1 tab(s) Oral Daily resume home schedule Unchanged Clopidogrel (Plavix 75 mg oral tablet) 1 tab(s) Oral Daily resume home schedule Unchanged Losartan (losartan 100 mg oral tablet) 1 tab(s) Oral Daily resume home schedule Unchanged Metoprolol (metoprolol 50 mg oral tablet) 1 tab(s) Oral Twice a day Duration: 30 Days resume home schedule Test Results Below is a partial list of the most recent Laboratory test results done prior to this discharge. You may have had other tests and procedures not included in this list. Please discuss all test resultswith your provider. GLUCOSE POC (08/10/2022) ???Glucose, POC - 117 mg/dL Type and Screen (08/10/2022) ???Blood Type - O Positive???Antibody Screen - Negative Allergies (NKA means No Known Allergies) amoxicillin Problems Active Problems??(3) Diabetes mellitus - adult onset?? Hypertension?? Obese class I?? Education Materials Below is the list of Educational Leaflet Providered with your Discharge Instructions. Surgery Radial Cath Approach Discharge Instructions?? Procedural Sedation?? M-Patient Instructions?? Bleeding or Hematoma After Cardiac Catheterization?? Valuables and Belongings I fully understand and agree that [facility] accepts no responsibility for all my personal property including clothing, toilet articles, radios, jewelry, dentures, hearing aids, rings, money, or any other property that is in my possession or is brought to me after admission. I understand certain valuables may be placed in a hospital safe for a short period of time. I understand that the hospital is not liable for loss or damage due to accident, fire, or other natural occurrence while said property is in the safe. I accept full responsibility for any personal property that I keep with me, and will not hold the hospital responsible in case of loss or disappearance. I acknowledge that i have been encouraged to send valuables and belongings home. ?? Date for Pt to Sign Valuables/Belongings: 08/10/22 10:51:00 ?? Other Discharge Information ? Pulmonary Rehab Status?? Pulmonary Rehab Discharge Status?? Respiratory Rate: 18 br/min ? Common Emergency Awareness Tips IS IT A STROKE? Act FAST and Check for these signs: FACE Does the face look uneven? ARM Does one arm drift down? SPEECH Does their speech sound strange? TIME Call at any sign of stroke ?? Heart Attack Signs Chest discomfort: Most heart attacks involve discomfort in the center of the chest and lasts more than a few minutes, or goes away and comes back. It can feel like uncomfortable pressure, squeezing, fullness or pain. Discomfort in upper body: Symptoms can include pain or discomfort in one or both arms, back, neck, jaw or stomach. Shortness of breath: With or without discomfort. Other signs: Breaking out in a cold sweat, nausea, or lightheaded. Remember, MINUTES DO MATTER. If you experience any of these heart attack warning signs, call to get immediate medical attention! ?? Smoking can increase your chances of developing chronic health problems and can cause harmful effects to other family members in your house. If you smoke, you are strongly encouraged to quit. Please call [facility] [employer] Link at [phone] or [phone] ([phone] or log in to [email or web address] for referrals to smoking cessation programs. ?? 308 Suicide & Crisis Lifeline is available 15/10 if you or someone you know needs to find a reason to keep living. By calling 329 you'll be connected to a skilled, trained counselor at a crisis center in your area. INPATIENT DISCHARGE INSTRUCTIONS SIGNATURE PAGE LATOSHA BERNARD Location:[facility] Registration Date and Time:08/10/2022 06:20 EDT Primary Care Physician: Mini Sosa NP, Attending Physician: Eddie JORDAN, Allan, I LATOSHA BERNARD, have received the above patient education materials/instructions and have verbalized understanding. If ambulance or transport services are being used I further acknowledge being given a choice of service. ?? If you need to contact me, please call me at this number: . Patient/Stores Naval Name: Patient/Stores Naval Signature: Relationship to Patient: Witness Name/Signature: Date: * Lilia Hahn RN: PERFORM Event Display: Patient Education Leaflets Authored Date: Coronary Angiography ?? [address] Coronary Angiography Angiography is a special type of moving X-ray that lets your doctor view your coronary arteries to see if the blood vessels to your heart are narrowed or blocked. This test is done when someone is having a heart attack. Or it may be done if symptoms may mean a heart attack. It also may be done after an abnormal cardiac stress test. ??Before the procedure ??? Tell your healthcare team what medicines you take and any allergies you may have. ??? Tell your healthcare team if you've had a reaction to contrast dye or have had any kidney problems. ??? Follow any directions you are given for not eating or drinking before surgery. ???A nurse will place an IV (intravenous) catheter in your vein to give fluids, and medicine to relieve pain and help you feel less anxious. ??? They clean your skin and shave the area where the catheter will be inserted, if needed. ?? During the procedure ??? You will lie on a table with a portable X-ray machine over you. The team will place a surgical drape over your body. The area where the doctor chooses to insert the catheter will be cleaned. Thiswill be either a wrist or the groin. ??? Your doctor will place a long, thin tube (catheter) insidean artery in your groin or arm and guide it into your heart. You may feel pressure with the insertion of the catheter. A numbing medicine often is injected at the insertion site. This eases discomfort during the procedure. ??? They will inject a contrast dye through the catheter into your blood vessels or heart chambers. You may feel a warm sensation or feeling like you have to urinate when the contrast is injected. This is normal. ??? X-rays are taken to show images of the inside of your heartand coronary arteries. The catheter can be placed into the groin, arm, or wrist. ?? After the procedure ??? Your healthcare team will tell you how long to lie down and keep the insertion site still. The amount of time may depend on whether a closure device such as a stitch or collagen plug was used to close the opening made in your artery. The time you must be still may be shorterif one of these devices was used. The amount of time will also depend on if there is any bleeding at the catheter insertion site. ??? If the insertion site was in your groin, you may need to lie downwith your leg still for several hours. If the insertion site was in your wrist, a pressure bandage may be put on the site. Or you may have closure device placed on the insertion site. It will be taken off when there is no sign of bleeding. If bleeding occurs, a nurse will put pressure on the area to control it. ??? A nurse will check your blood pressure and the insertion site often. This is to make sure you remain stable after the procedure. ??? You may be asked to drink fluid to help flush thecontrast liquid out of your system. ??? Have someone drive you home from the hospital. ??? If your doctor uses angioplasty or a stent to treat a blocked artery, you may stay the night in the hospital. If there are multiple blockages that can't be fixed with a stent or angioplasty, you may need surgery to bypass the blockages. This is called coronary artery bypass graft surgery. Your doctor will explain the results of your test and what treatment options that may be best for you. ??? It???s normal to find a small bruise or lump at the insertion site. The lump may be the collagen plug or stitchthat you feel, or a small bruise. These common side effects should disappear within a few weeks. ??? You will be given instructions by your healthcare team on recovering from the coronary angiography. In general, don't lift anything heavier than a gallon of milk for several days. This gives time for the puncture site in the artery wall to heal. Try not to get the puncture site wet. Don't put it under water. Showers are OK. Don't soak in a bathtub, swimming pool, or hot tub until the skin has healed. ?? When to call your healthcare provider Call your healthcare provider right away if you have any of these: ??? Symptoms of infection. Theseinclude pain, swelling, redness, bleeding, or drainage at the insertion site. ??? Fever of 100.4??F(38??C) or higher, or as advised by your provider ??? Bleeding, bruising, or a lot of swelling where the catheter was inserted ??? Blood in your urine ??? Black or tarry stools ??? Any unusual bleeding ??? Irregular, very slow, or fast heartbeat ??? Dizziness ?? Call 911 Call 911if any of these occur: ??? Chest pain ??? Shortness of breath ??? Sudden numbness or weakness in arms, legs, or face, or difficulty speaking ??? The puncture site swells up very fast ??? Bleeding from the puncture site that does not slow down with firm pressure ??? Severe or increasing pain, numbness, coldness, or a bluish color in the leg or arm that held the catheter ?? Last Reviewed Date: 2021 ?? 9201-4803 [employer]. All rights reserved. This information is not intended as a substitute for professional medical care. Always follow your healthcare professional's instructions. ?? * Lilia Hahn RN: PERFORM Event Display: Patient Education Leaflets Authored Date: [id number] Coronary Angiography ?? [id number] Coronary Angiography Angiography is a special type of moving X-ray that lets your doctor view your coronary arteries to see if the blood vessels to your heart are narrowed or blocked. This test is done when someone is having a heart attack. Or it may be done if symptoms may mean a heart attack. It also may be done after an abnormal cardiac stress test. ??Before the procedure ??? Tell your healthcare team what medicines you take and any allergies you may have. ??? Tell your healthcare team if you've had a reaction to contrast dye or have had any kidney problems. ??? Follow any directions you are given for not eating or drinking before surgery. ???A nurse will place an IV (intravenous) catheter in your vein to give fluids, and medicine to relieve pain and help you feel less anxious. ??? They clean your skin and shave the area where the catheter will be inserted, if needed. ?? During the procedure ??? You will lie on a table with a portable X-ray machine over you. The team will place a surgical drape over your body. The area where the doctor chooses to insert the catheter will be cleaned. Thiswill be either a wrist or the groin. ??? Your doctor will place a long, thin tube (catheter) insidean artery in your groin or arm and guide it into your heart. You may feel pressure with the insertion of the catheter. A numbing medicine often is injected at the insertion site. This eases discomfort during the procedure. ??? They will inject a contrast dye through the catheter into your blood vessels or heart chambers. You may feel a warm sensation or feeling like you have to urinate when the contrast is injected. This is normal. ??? X-rays are taken to show images of the inside of your heartand coronary arteries. The catheter can be placed into the groin, arm, or wrist. ?? After the procedure ??? Your healthcare team will tell you how long to lie down and keep the insertion site still. The amount of time may depend on whether a closure device such as a stitch or collagen plug was used to close the opening made in your artery. The time you must be still may be shorterif one of these devices was used. The amount of time will also depend on if there is any bleeding at the catheter insertion site. ??? If the insertion site was in your groin, you may need to lie downwith your leg still for several hours. If the insertion site was in your wrist, a pressure bandage may be put on the site. Or you may have closure device placed on the insertion site. It will be taken off when there is no sign of bleeding. If bleeding occurs, a nurse will put pressure on the area to control it. ??? A nurse will check your blood pressure and the insertion site often. This is to make sure you remain stable after the procedure. ??? You may be asked to drink fluid to help flush thecontrast liquid out of your system. ??? Have someone drive you home from the hospital. ??? If your doctor uses angioplasty or a stent to treat a blocked artery, you may stay the night in the hospital. If there are multiple blockages that can't be fixed with a stent or angioplasty, you may need surgery to bypass the blockages. This is called coronary artery bypass graft surgery. Your doctor will explain the results of your test and what treatment options that may be best for you. ??? It???s normal to find a small bruise or lump at the insertion site. The lump may be the collagen plug or stitchthat you feel, or a small bruise. These common side effects should disappear within a few weeks. ??? You will be given instructions by your healthcare team on recovering from the coronary angiography. In general, don't lift anything heavier than a gallon of milk for several days. This gives time for the puncture site in the artery wall to heal. Try not to get the puncture site wet. Don't put it under water. Showers are OK. Don't soak in a bathtub, swimming pool, or hot tub until the skin has healed. ?? When to call your healthcare provider Call your healthcare provider right away if you have any of these: ??? Symptoms of infection. Theseinclude pain, swelling, redness, bleeding, or drainage at the insertion site. ??? Fever of 100.4??F(38??C) or higher, or as advised by your provider ??? Bleeding, bruising, or a lot of swelling where the catheter was inserted ??? Blood in your urine ??? Black or tarry stools ??? Any unusual bleeding ??? Irregular, very slow, or fast heartbeat ??? Dizziness ?? Call 911 Call 911if any of these occur: ??? Chest pain ??? Shortness of breath ??? Sudden numbness or weakness in arms, legs, or face, or difficulty speaking ??? The puncture site swells up very fast ??? Bleeding from the puncture site that does not slow down with firm pressure ??? Severe or increasing pain, numbness, coldness, or a bluish color in the leg or arm that held the catheter ?? Last Reviewed Date: 2021 ?? [employer]. All rights reserved. This information is not intended as a substitute for professional medical care. Always follow your healthcare professional's instructions. ?? * Lilia Hahn RN: PERFORM Event Display: Patient Education Leaflets Authored Date: [id number] Surgery Radial Cath Approach Discharge Instructions ?? 278 Radial Cath Approach Discharge Instructions ?? Activity Take it easy the rest of the day. Limit your activity on the affected side.?? Act as if your arm is broken for 24 hours. No lifting with affected arm for 24 hours. No pushing or pulling with the affected arm. Do not reach or lift with the affected arm. Do not place excessive pressure on the wrist. ?? Precautions Due to intravenous sedation: It is recommended that someone stay with you for the first night after your procedure. Do not drive or operate hazardous machinery for 24 hours. Do not make legal decisions for 24 hours. Avoid alcohol for 24 hours. Unless directed otherwise, keep yourself hydrated. ?? Dressing/Incision Care You may remove the dressing 24 hours after your procedure. Replace with band aid for an additional 24 hours. You may shower and cleanse the site with soap & water then pat dry. Avoid submersion of site in water x 5 days. Cover the with a clean band aid daily until site is healed. If the band aid becomes soiled, replacewith a clean new one. Do not apply any ointments, lotions, gels or powders to the puncture site. ?? When to contact your doctor If any of the following signs of infection occur: Fever greater than 100 degrees F Increased pain Drainage, redness or warmth at puncture site Tingling of the fingers and hand that last longer than 3 days Slight bubble of blood or bleeding from site: apply manual pressure and notify your doctor ?? Emergency situations: Bleeding from the site that will not stop: apply manual pressure and notify your doctor Profuse bleeding streaming from the puncture site: Apply manual pressure and notify your doctor immediately If your hand becomes bluish, cold to the touch, or painful, notify your doctor immediately or go toEmergency Department. For these emergent situations: If unable to contact your physician, call 911. ?? Patient Care team information Care Team Personnel Name: Ian JACOBSON, Mini Lewis Position: [facility] Outreach Member Role: PCP Address: Address: [address] [place] [address]- Care Team Related Persons Name: CAN BERNARD Address: home [address] [place] [address]
--- OUTSIDE RECORDS SUMMARY | 2022-11-15 06:29 | XMS_ITS | Continuity of Care Document ---
Author Name Unknown Organization [facility] Cardiac Julian brenna Address [address] [place] [id number]- Care Team Providers Care Security Door Installer Name Role Phone Prakash Graham MD Primary Care Physician [phone] Encounter [facility] [place] Date(s): 10/19/22 - 10/26/22 [facility] Cardiac Surgery [address] [place] [id number]- Attending Physician: Thor Palacios MD Referring Physician: David Stoen MD Allergies, Adverse Reactions, Alerts Substance Reaction Severity Status amoxicillin Hives Active Medications acetaminophen 325 mg oral tablet 650 mg, 2, tablet, By Mouth, 4 times a day, Refills 0, Maintenance, 09/24/22 12:39:00 EDT, Partial [...] Ordered atorvastatin 40 mg oral tablet = 80 mg, By Mouth, Daily at bedtime, 0 [...] sulfate 325 mg oral enteric coated tablet See Instructions, 325 mg By Mouth MWF, Refills 0, Maintenance, 09/24/22 12:40:00 EDT, Instructions Replace Required Details, Partial fill upon patient request if the prescription is for a schedule IIopioid drug. Start Date: 09/24/22 Status: Ordered Flomax [...] opioid drug. Start Date: 08/27/22 Status: Ordered levoFLOXacin 500 mg oral tablet 1 tablet = 500 mg, By Mouth, Every 24 hours, # 12 tablet, 0 Refills, Acute 11/05/22 21:00:00 EDT, 10/24/22 13:22:00 EDT, Tablet, [facility] 3, Partial fill upon patient request if the prescription is for a schedule II opioid drug., 168, cm... Start Date: 10/24/22 Stop Date: 11/05/22 Status: Ordered lidocaine 5% topical film Topically, [...] 0 Refills, Maintenance, 09/24/22 12:51:00 EDT, Tablet, [facility] 3, Partial fill upon patient [...] XL 25 mg oral tablet, extended release 25 mg, By Mouth, Daily, Refills 0, Maintenance, 10/24/22 13:20:00 EDT, Partial fill upon patient request if the prescription is for a schedule II opioid drug. 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 Vital Signs Most recent to oldest [Reference Range]: 1 Height 168 cm (10/19/22 12:32 PM) Blood Pressure [90-138/55-84 mm Hg] 114/ 62mm Hg (10/19/22 12:32 PM) Blood pressure sites Arm, right (10/19/22 12:32 PM) Patient Care team information Care Team Personnel Name: Daniella Doyle RN Position: [facility] RN Member Role: Primary Care Nurse Name: Lia Stiles RN Position: [facility] RN Supv Member Role: Primary Care Nurse Name: Felicia Mendez RN Position: S RN Member Role: Primary Care Nurse Name: Prakash Graham MD Position: [facility] Outreach Member Role: PCP Address: Address: [address] [place] [address] Internal Medicine [address] Name: Ralf Beach RN Position: S RN Member Role: Primary Care Nurse Name: Moni Cunha RN Position: S RN Member Role: Primary Care Nurse Name: Juan Prado RN Position: S RN Member Role: Primary Care Nurse Name: Myranda Evangelista RN Position: S RN Member Role: Primary Care Nurse Name: Petrona Schmidt Position: S RN Member Role: Primary Care Nurse Name: Delisa Rodriguez LPN Position: [facility] RN Member Role: Primary Care Nurse Name: Chris Collier RN Position: [facility] RN Member Role: Primary Care Nurse Name: Kelly Sotelo RN Position: [facility] RN Member Role: Primary Care Nurse Name: Jodie Salamanca RN Position: [facility] RN Member Role: Primary Care Nurse Name: Dain Villafana RN Position: [facility] RN Member Role: Primary Care Nurse Name: Chris Logan RN Position: [facility] RN Member Role: Primary Care Nurse Name: Nury Romero RN Position: [facility] RN Member Role: Primary Care Nurse Name: Jamee Kothari RN Position: [facility] RN Member Role: Primary Care Nurse Care Team Related Persons Name: CAN BERNARD Address: home [address] [place] [id number] Name: AYDEN PIMENTEL Address: home [address] [place] [address]
--- OUTSIDE RECORDS SUMMARY | 2022-11-15 06:29 | XMS_ITS | Continuity of Care Document ---
Author Name Unknown Organization [facility] Card[facility] Julian brenna Address [address] [place] [address] [place] [address]- Care Team Providers Care Surveyor Oil Well Directional Name Role Phone Not on Staff, PCP Primary Care Physician Unavail able Encounter [facility] [place] Date(s): 10/05/22 - 10/12/22 [facility] Cardiac Surgery [address] [place] [id number]- Attending Physician: Ty Fu MD Referring Physician: Chase JORDAN, David Allergies, Adverse Reactions, Alerts Substance Reaction Severity [...] 0 Refills, Maintenance, 09/24/22 12:51:00 EDT, Tablet, [facility] 3, Partial fill upon patient request if [...] oldest [Reference Range]: 1 Height 168 cm (10/05/22 2:31 PM) Weight 77.8 kg (10/05/22 2:31 PM) Oxygen Saturation [94-100 %] 96 % (10/05/22 2:31 PM) Pulse Rate [55-90 bpm] 79 bpm (10/05/22 2:31 PM) Body Mass Index [18.5-24.99 kg/m2] 27.57 kg/m2 *H* (10/05/22 2:31 PM) Blood Pressure [90-138/55-84 mm Hg] 92/5 4mm Hg (10/05/22 2:31 PM) Respiratory Rate [16-30 br/min] 24 br/mi n (10/05/22 2:31 PM) Temperature [96.8-100.4 DegF] 98.0 DegF (10/05/22 2:31 PM) Mode of Delivery (Oxygen) Room air (10/05/22 2:31 PM) Blood pressure sites Arm, left (10/05/22 2:31 PM) Temperature Route Oral (10/05/22 2:31 PM) Weight Obtained Via Patient/family state d (10/05/22 2:31 PM) Cardiac surgery Outpatient Note * Nickie JORDAN, Ty: PERFORM Event Display: Cardiac Surgery Note Office Authored Date: [id number] Patient: ??LATOSHA BERNARD ? Age:??77 Years?Sex:??Female?:??1945?? CARDIAC SURGERY OFFICE NOTE DATE: ??10/05/22 77 year old female who underwent AVR / triple coronary artery bypass grafting on 08/28/[address] Chad Marques for aortic stenosis and coronary artery occlusive disease prolonged hospitalization then d/c rehab on 09/24/22, since doing well. Improved mobility and endurance since rehab. Patient has been doing well and pain is much more tolerable than initially after discharge. Denies fever, pain, erythema, drainage, numbness, or other wound related complications. Inferior sternal wound w/ dehiscence and scab, no evidence of infection, dressed at rehab. ? VITAL SIGNS: ??afebrile, blood pressure 92/54 mmHg, heart rate 79 beats per minute, oxygen saturation 96% on room air at rest. ? PHYSICAL EXAMINATION: ? CONST: The patient is alert, oriented and pleasantly conversant. EYES:??Anicteric, nl conjunctivae, EOM intact ENT:??Nl oropharynx NECK:??No evidence of JVD or HJR. Carotid impulses and upstroke normal bilaterally, no carotid bruits?? CV:??Regular rhythm, no??murmur; No aortic pulsation or aortic bruits. RESP:??Normal respiratory effort,??clear to auscultation bilaterally GI:??Soft, non-tender and non-distended??bowels sounds normoactive, no abdominal bruits EXT: no lower extremity edema, no cyanosis SKIN:??No rash, skin warm and dry.?? NEURO:?Alert and oriented x 3, CN 2-12 grossly intact? Surgical Wounds: Chest: The sternum is stable. ??The sternal incision is??without erythema or drainage, some superficial epithelial dehiscence with scabbing, most notably inferior portion, dressed.?The chest tube sites are healing well. ??The saphenous vein harvest site is well approximated without erythema or drainage. ? A/P: The patient is a 77 year old female who underwent AVR / triple coronary artery bypass graftingon 08/28/[address] Chad Marques doing well postoperatively. Pt and daughter had all questions answered, and overall the patient is doing well following cardiac surgery. ??She was advised to continue tofollow up with cardiology and start cardiac rehab soon. She will likely be leaving rehab next week.She knows to follow up weekly to monitor sternal wound dehiscence and continue to dress and use Vashe.? Ty Fu MD [facility] Cardiac Surgery?? [address] [facility], [address] [place] [address] Office: [phone] Patient Care team information Care Team Personnel Name: Daniella Doyle RN Position: S RN Member Role: Primary Care Nurse Name: Lia Stiles RN Position: [facility] RN Supv Member Role: Primary Care Nurse Name: Felicia Mendez RN Position: S RN Member Role: Primary Care Nurse Name: Ralf Beach RN Position: [facility] RN Member Role: Primary Care Nurse Name: Juan Prado RN Position: S RN Member Role: Primary Care Nurse Name: Myranda Evangelista RN Position: [facility] RN Member Role: Primary Care Nurse Name: Delisa Rodriguez LPN Position: [facility] RN Member Role: Primary Care Nurse Name: Chris Collier RN Position: [facility] RN Member Role: Primary Care Nurse Name: Kelly Sotelo RN Position: [facility] RN Member Role: Primary Care Nurse Name: Dain Villafana RN Position: [facility] RN Member Role: Primary Care Nurse Name: Not on Staff, PCP Position: [facility] Physician (General Medicine) Member Role: PCP Name: Chris Logan RN Position: [facility] RN Member Role: Primary Care Nurse Name: Nury Romero RN Position: [facility] RN Member Role: Primary Care Nurse Name: Jamee Kothari RN Position: S RN Member Role: Primary Care Nurse Care Team Related Persons Name: CAN BERNARD Address: home [address] [place] [id number] Name: AYDEN PIMENTEL Address: home [address] [place] [id number]
--- OUTSIDE RECORDS SUMMARY | 2022-11-15 06:29 | XMS_ITS | Continuity of Care Document ---
Author Name Unknown Organization [facility] Address [address] [place] [id number] Care Team Providers Care Neurology Tech Name Role Phone Not on Staff, PCP Primary Care Physician Unavail able [place] [facility] 08/28/22 - 09/24/[address] [address]- Encounter Diagnosis Heart failure with reduced ejection fraction(Discharge Diagnosis) - 09/04/22 Cardiogenic shock(Discharge Diagnosis) - 09/04/22 Atrial fibrillation with RVR(Discharge Diagnosis) - 09/04/22 Acute myocardial infarction of anterior wall(Discharge Diagnosis) - 09/04/22 Right heart failure due to left heart failure(Discharge Diagnosis) - 09/04/22 Discharge Disposition: A-D/C Home Attending Physician: Chad Marques MD Admitting Physician: Chad Marques MD Referring Physician: Chase JORDAN David Allergies, Adverse Reactions, Alerts Substance Reaction [...] 0 Refills, Maintenance, 09/24/22 12:51:00 EDT, Tablet, [facility], Partial fill upon patient request [...] mg oral tablet, extended release 12.5 mg, XL Tablet, By Mouth, 09/24/22 9:00:00 EDT Start Date: 09/24/22 Stop Date: 09/24/22 Status: Completed Vashe Topical Solution 475 mL, Topically, Every [...] due to left heart failure Confirmed Active Diagnosis Diagnosis Type Effective Dates Health Status Clinical Service Informant Heart failure with reduced ejection fraction Discharge Diagnosis 09/04/22 Cardiogenic shock Discharge Diagnosis 09/04/22 Atrial fibrillation with RVR Discharge Diagnosis 09/04/22 Acute myocardial infarction of anterior wall Discharge Diagnosis 09/04/22 Right heart failure due to left heart failure Discharge Diagnosis 09/04/22 Results Orders for Microbiology Reports Name Date Blood Culture 09/05/22 Blood Culture #2 09/05/22 Anaerobic Culture (ANAEROBIC CULTURE) Sterile Body Fluid Culture W/ Gram Smear 09/04/22 Sputum Culture w/ Gram Smear 09/03/22 Blood Culture 09/03/22 Blood Culture #2 09/03/22 Sputum Culture w/ Gram Smear 09/01/22 Blood Culture 09/01/22 Blood Culture #2 09/01/22 Microbiology Reports (Most Recent Ten) TEST:Blood Culture STATUS:Auth (Verified) BODY SITE: SOURCE:Blood COLLECTED DATE/TIME:09/05/22 8:39 AM Blood Culture SPECIMEN DESCRIPTION : BLOOD L WRIST NUM 1 SPECIAL REQUESTS : NONE CULTURE : NO GROWTH 5 DAYS. REPORT STATUS : FINAL 09/10/2022 TEST:Blood Culture, Second Order STATUS:Auth (Verified) BODY SITE: SOURCE:Blood COLLECTED DATE/TIME:09/05/22 8:39 AM Blood Culture, Second Order SPECIMEN DESCRIPTION : BLOOD RT WRIST NUM 2 SPECIAL REQUESTS : NONE CULTURE : NO GROWTH 5 DAYS. REPORT STATUS : FINAL 09/10/2022 TEST:Anaerobic Culture STATUS:Auth (Verified) BODY SITE: SOURCE:PLEURA COLLECTED DATE/TIME:09/04/22 3:12 PM Anaerobic Culture SPECIMEN DESCRIPTION : PLEURAL FLUID SPECIAL REQUESTS : NONE CULTURE : NO ANAEROBES ISOLATED REPORT STATUS : FINAL 09/09/2022 TEST:Sterile Fluid Culture STATUS:Auth (Verified) BODY SITE: SOURCE:PLEURA COLLECTED DATE/TIME:09/04/22 3:12 PM Sterile Fluid Culture SPECIMEN DESCRIPTION : PLEURAL FLUID SPECIAL REQUESTS : NONE GRAM STAIN : 4+ WHITE BLOOD CELLS NO ORGANISMS SEEN CULTURE : NO GROWTH 2 DAYS REPORT STATUS : FINAL 09/07/2022 TEST:Sputum Culture STATUS:Auth (Verified) BODY SITE: SOURCE:ENDOTR COLLECTED DATE/TIME:09/03/22 6:20 AM Sputum Culture SPECIMEN DESCRIPTION : ENDOTRACHEAL ASPIRATE SPECIAL REQUESTS : NONE GRAM STAIN : 3+ POLYMORPHONUCLEAR LEUKOCYTES 3+ YEAST CULTURE : 3+ NORMAL JOSE REPORT STATUS : FINAL 09/05/2022 TEST:Blood Culture STATUS:Auth (Verified) BODY SITE: SOURCE:Blood COLLECTED DATE/TIME:09/03/22 5:54 AM Blood Culture SPECIMEN DESCRIPTION : BLOOD L FOREARM SPECIAL REQUESTS : NONE CULTURE : NO GROWTH 5 DAYS. REPORT STATUS : FINAL 09/08/2022 TEST:Blood Culture, Second Order STATUS:Auth (Verified) BODY SITE: SOURCE:Blood COLLECTED DATE/TIME:09/03/22 5:54 AM Blood Culture, Second Order SPECIMEN DESCRIPTION : BLOOD LHAND SPECIAL REQUESTS : NONE CULTURE : NO GROWTH 5 DAYS. REPORT STATUS : FINAL 09/08/2022 TEST:Sputum Culture STATUS:Auth (Verified) BODY SITE: SOURCE:ENDOTR COLLECTED DATE/TIME:09/01/22 3:28 PM Sputum Culture SPECIMEN DESCRIPTION : ENDOTRACHEAL ASPIRATE SPECIAL REQUESTS : NONE GRAM STAIN : 1+ SQ.EPITHELIAL CELLS 1+ WHITE BLOOD CELLS 1+ YEAST CULTURE : 3+ LIANNA ALBICANS This isolate was identified using Maldi-TOF system REPORT STATUS : FINAL 09/03/2022 TEST:Blood Culture, Second Order STATUS:Auth (Verified) BODY SITE: SOURCE:Blood COLLECTED DATE/TIME:09/01/22 1:56 PM Blood Culture, Second Order SPECIMEN DESCRIPTION : BLOOD R ARM SPECIAL REQUESTS : NONE CULTURE : NO GROWTH 5 DAYS. REPORT STATUS : FINAL 09/06/2022 TEST:Blood Culture STATUS:Auth (Verified) BODY SITE: SOURCE:Blood COLLECTED DATE/TIME:09/01/22 1:33 PM Blood Culture SPECIMEN DESCRIPTION : BLOOD R ARM SPECIAL REQUESTS : NONE CULTURE : NO GROWTH 5 DAYS. REPORT STATUS : FINAL 09/06/2022 Radiology Reports (Most Recent Ten) * Exam Date Time Procedure Performing Provider Status 09/20/22 6:42 AM Chest Portable Berhane Schumacher; Auth (Estiven ified) Notes: (Chest Portable) Reason For Exam: drifting Hgb s/p cardiac surgery;Other: RESULT: Chest Portable Chest Portable Reason: Other:; drifting Hgb s p cardiac surgery; Clinical Question(s): Pleural Effusion COMPARISON: 09/13/2022 FINDINGS: Improved left basilar and perihilar lung aeration with minimal residual consolidation at the left base IMPRESSION: Interval improvement in the degree of left lung aeration WSN: [id number] Ordering Physician: Raymundo Marcus Dictated By: Avinash Yancey MD Dictated Date/Time: 09/20/22 7:57 am Reviewed By: Avinash Yancey MD Signed By: Avinash Yancey MD Signed Date/Time: 09/20/22 7:57 am Transcribed By: CARON Transcribed Date/Time: 09/20/22 7:56 am * Exam Date Time Procedure Performing Provider Status 09/13/22 11:44 AM Chest Portable Avinash Howe; Gerardo h (Verified) Notes: (Chest Portable) Reason For Exam: Shortness of Breath RESULT: Chest Portable Chest Portable Reason: Shortness of Breath; Clinical Question(s): Pleural Effusion COMPARISON: Priors, most recent dated 09/11/2022 FINDINGS: LINES AND TUBES: None. Interval removal of the previously noted left IJ vascular sheath. LUNGS AND PLEURA: Persistent dense left retrocardiac opacity, likely representing combination of left pleural effusion and atelectasis. Hazy left perihilar opacity may be related to asymmetric pulmonary edema and/or atelectasis. Mild bilateral central vascular congestion noted. Minimal right basilar atelectasis. No right pleural effusion No pneumothorax. HEART, MEDIASTINUM AND NENITA: Heart is normal in size. Normal mediastinal and hilar contour. BONES AND SOFT TISSUES: No acute abnormality. IMPRESSION: Slightly low lung volumes with persistent bilateral central vascular congestion and small left pleural effusion and atelectasis. Mild new left perihilar hazy opacity probably representing a combination of asymmetric pulmonary edema and/or atelectasis. WSN: [id number] Ordering Physician: Shira Lin Dictated By: Sonja Ray MD Dictated Date/Time: 09/13/22 2:35 pm Reviewed By: Sonja Ray MD Signed By: Sonja Ray MD Signed Date/Time: 09/13/22 2:35 pm Transcribed By: CARON Transcribed Date/Time: 09/13/22 2:33 pm * Exam Date Time Procedure Performing Provider Status 09/11/22 7:16 AM Chest Portable Raymundo Ivey; Aut h (Verified) Notes: (Chest Portable) Reason For Exam: Shortness of Breath RESULT: Chest Portable Chest Portable REASON: Shortness of Breath; Clinical Question(s): Pleural Effusion COMPARISON: Chest radiograph from 09/08/2022. FINDINGS: LINES AND TUBES: Interval removal of the left [place]-Oly catheter, with the introducer sheath left in place within the distal internal jugular vein. LUNGS AND PLEURA: Low volume lungs with mild pulmonary vascular congestion. Small left pleural effusion and overlyingleft retrocardiac density unchanged. No pneumothorax. HEART, MEDIASTINUM AND NENITA: Moderate prominence of the cardiac silhouette, unchanged. Normal mediastinal and hilar contour. BONES AND SOFT TISSUES: No acute abnormality. IMPRESSION: Mild pulmonary vascular congestion with a small left pleural effusion and cardiomegaly, suggestive of pulmonary edema. Retrocardiac density unchanged. I have personally reviewed the images and I agree with this report. WSN: [id number] Ordering Physician: Alanna Reid Dictated By: Balbir Acuña MD Dictated Date/Time: 09/11/22 10:00 a Reviewed By: Pablo Watkins MD, V Signed By: Pablo Watkins MD, V Signed Date/Time: 09/11/22 10:05 am Transcribed By: CARON Transcribed Date/Time: 09/11/22 9:56 am * Exam Date Time Procedure Performing Provider Status 09/08/22 10:08 AM Chest Portable Ashanti Lu (Verified) Notes: (Chest Portable) Reason For Exam: Line Placement RESULT: Chest Portable AP portable chest, INDICATION: Reason: Line Placement; Special Instructions: [place] assessment to be able to remove COMPARISON: 09/06/2022 FINDINGS: LINES AND TUBES: A [place]-Oly catheter ends in the main pulmonary artery. LUNGS AND PLEURA AND MEDIASTINUM: There is no pneumothorax. There is small-sized left pleural effusion with left basilar atelectasis. IMPRESSION: Small-sized left pleural effusion with left basilar atelectasis, stable. WSN: [id number] Ordering Physician: Alanna Reid Dictated By: Elida Delvalle MD Dictated Date/Time: 09/08/22 4:07 pm Reviewed By: Elida Delvalle MD Signed By: Elida Delvalle MD Signed Date/Time: 09/08/22 4:07 pm Transcribed By: CARON Transcribed Date/Time: 09/08/22 4:06 pm * Exam Date Time Procedure Performing Provider Status 09/06/22 4:37 PM Chest Portable Joselyn Campbell (Verified) Notes: (Chest Portable) Reason For Exam: Tube Placement RESULT: Chest Portable Chest Portable REASON: Tube Placement COMPARISON: Multiple priors, most recent 09/06/2022 at 5:47 AM. FINDINGS: LINES AND TUBES: Unchanged endotracheal tube, enteric tube, and left IJ [place]-Oly catheter. Right pleural basilar pigtail catheter has been removed. LUNGS AND PLEURA: Unchanged small left layering pleural effusion with adjacent atelectasis. No significant right pleural effusion. Retrocardiac density unchanged. No pneumothorax. HEART, MEDIASTINUM AND NENITA: Heart is normal in size. Evidence of CABG. Aorta is mildly calcified. BONES AND SOFT TISSUES: Status post median sternotomy. IMPRESSION: No right pneumothorax status post right pleural pigtail catheter removal. Unchanged small left pleural effusion. Persistent retrocardiac density consistent with atelectasis and/or infiltrates and/or a small right pleural effusion. I have personally reviewed the images and I agree with this report. WSN: [id number] Ordering Physician: Mindi Hart Dictated By: Rosemary Schumacher DO Dictated Date/Time: 09/06/22 5:08 pm Reviewed By: Pablo Watkins MD, V Signed By: Pablo Watkins MD, V Signed Date/Time: 09/06/22 5:13 pm Transcribed By: CARON Transcribed Date/Time: 09/06/22 5:00 pm * Exam Date Time Procedure Performing Provider Status 09/06/22 6:15 AM Chest Portable Berhane Schumacher; Auth (Estiven ified) Notes: (Chest Portable) Reason For Exam: S/P Cardiac Surgery RESULT: Chest Portable Chest Portable REASON: S P Cardiac Surgery COMPARISON: Multiple prior examinations with the most recent dated 09/05/2022. FINDINGS: LINES AND TUBES: Unchanged endotracheal tube with tip approximately 2.4 cm above the claudio. Unchanged enteric tube coursing below the level of the diaphragm with tip within the region of the stomach. Left internal jugular [place]-Oly catheter with tip overlying the pulmonary outflow tract. Unchanged right basilar pleural catheter. LUNGS AND PLEURA: Mild bibasilar atelectasis. Significantly decreased left lung base opacity. Minimal residue left pleural effusion. Normal pulmonary vascularity. No pneumothorax. HEART, MEDIASTINUM AND NENITA: Heart is normal in size. Normal mediastinal and hilar contour. BONES AND SOFT TISSUES: No acute abnormality. IMPRESSION: 1. Unchanged support lines and tubes. 2. Significantly decreased left lung base atelectasis and/or left pleural effusion with minimal residual left pleural effusion. I have personally reviewed the images and I agree with this report. WSN: [id number] Ordering Physician: Berenice Vasquez Dictated By: Balbir Acuña MD Dictated Date/Time: 09/06/22 10:01 a Reviewed By: Pablo Watkins MD, V Signed By: Pablo Watkins MD, V Signed Date/Time: 09/06/22 10:06 am Transcribed By: CARON Transcribed Date/Time: 09/06/22 9:56 am * Exam Date Time Procedure Performing Provider Status 09/05/22 7:31 AM Chest Portable Sepideh Heredia; Auth (Verified) Notes: (Chest Portable) Reason For Exam: S/P Cardiac Surgery RESULT: Chest Portable Chest Portable performed semiupright at 6:12 AM REASON: S P Cardiac Surgery COMPARISON: Multiple priors, most recent from 09/04/2022; CT chest 09/04/2022. FINDINGS: LINES AND TUBES: Unchanged endotracheal tube approximately 1.4 cm above the claudio. Unchanged enteric tube coursing below the level of the diaphragm, with tip in the region of the stomach. Left IJ approach [place]-Oly catheter, with tip overlying the pulmonary outflow track. Epicardial leads. Unchanged right basilar pleural catheter. LUNGS AND PLEURA: Low volume lungs resulting in mild crowding of the bronchopulmonary vasculature. Unchanged hazy opacity in the left lung base, with a underlying small pleural effusion. No pneumothorax. HEART, MEDIASTINUM AND NENITA: Moderate prominence of the cardiac silhouette, unchanged. Status post aortic valve repair. Mild aortic calcification. Normal mediastinal and hilar contour. BONES AND SOFT TISSUES: No acute abnormality. Status post median sternotomy. IMPRESSION: 1. Unchanged hazy opacity in the left lung base, likely representing a combination of a small pleural effusion with overlying atelectasis. 2. Unchanged support tubes. I have personally reviewed the images and I agree with this report. WSN: [id number] Ordering Physician: Berenice Vasquez Dictated By: Balbir Acuña MD Dictated Date/Time: 09/05/22 9:42 am Reviewed By: Winter Griffin MD Signed By: Winter Griffin MD Signed Date/Time: 09/05/22 9:47 am Transcribed By: CARON Transcribed Date/Time: 09/05/22 8:53 am * Exam Date Time Procedure Performing Provider Status 09/04/22 8:41 PM Chest Portable Chetan Schrader; Floresita (Ve rified) Notes: (Chest Portable) Reason For Exam: ETT adjusted;Other: RESULT: Chest Portable Chest Portable Reason: Other:; ETT adjusted COMPARISON: 09/04/2022 and 5:21 AM FINDINGS: LINES AND TUBES: Endotracheal tube has been advanced now approximately 1.7 cm above the claudio. Enterogastric tube tip and side-port beneath the left hemidiaphragm in the stomach. Left internal jugular approach [place]-Oly catheter tip terminating in the main pulmonary artery outflow. Right basilar chest tube has been placed.. LUNGS AND PLEURA: Improved aeration of right lung possibly due to drainage of effusion. No pneumothorax. Hazy opacityat left lung base possibly representing a small effusion. Upper lobes are clear. HEART, MEDIASTINUM AND NENITA: Post median sternotomy. Mild prominence of the cardiac silhouette. Aorta is calcified. BONES AND SOFT TISSUES: No acute abnormality. IMPRESSION: Right basilar drain placement with drainage of previously seen effusion. Small left effusion is suggested. Endotracheal tube advanced now 1.7 cm above the claudio. Other lines and tubes are unchanged. WSN: [id number] Ordering Physician: Lesley Ayoub Dictated By: Channing Link MD Dictated Date/Time: 09/04/22 8:45 pm Reviewed By: Channing Link MD Signed By: Channing Link MD Signed Date/Time: 09/04/22 8:45 pm Transcribed By: CARON Transcribed Date/Time: 09/04/22 8:43 pm * Exam Date Time Procedure Performing Provider Status 09/04/22 3:30 PM Chest Portable Parrish Ivey (Verified) Notes: (Chest Portable) Reason For Exam: S/P chest tube on right side;Postop RESULT: Chest Portable Chest Portable Reason: Postop; S P chest tube on right side; Clinical Question(s): Pneumothorax; post right chest tube COMPARISON: 08/29/2022 FINDINGS: Endotracheal tube tip is approximately 7 cm above the claudio. Left IJ central venous [place]-Oly catheter tip over the pulmonary outflow tract. Enteric tube tip in the stomach. Right basilar pleural drain with improved aeration of the right lung base. No evidence of pneumothorax. Slight increase in left basilar pleural-parenchymal disease. IMPRESSION: No evidence of pneumothorax. Improved aeration of the right lung base. Slight increase in mild left basilar pleural-parenchymal disease. WSN: [id number] Ordering Physician: Roscoe Shukla Dictated By: Avinash Yancey MD Dictated Date/Time: 09/04/22 5:07 pm Reviewed By: Avinash Yancey MD Signed By: Avinash Yancey MD Signed Date/Time: 09/04/22 5:07 pm Transcribed By: CARON Transcribed Date/Time: 09/04/22 5:05 pm * Exam Date Time Procedure Performing Provider Status 09/04/22 10:[address] Angio Chest Sari Sepulveda; Aut h (Verified) Notes: (CT Angio Chest) Reason For Exam: PE Suspected, Intermediate Prob,;Other: RESULT: CT Angio Chest EXAMINATION: CT Angio Chest INDICATION: Reason: Other:; PE Suspected, Intermediate Prob,; TECHNIQUE: Spiral CTA of the chest was performed after rapid IV contrast administration without cardiac gating, triggered by an TERRANCE on the main pulmonary artery. Images are formatted in multiple planes using 2-D multiplanar and 3-D maximum intensity projection. 67 cc of Omnipaque 300 was administered intravenously. Weight-based protocol using automatic tube modulation was used to optimize exposure parameters. CTDIvol Body: 9.72 mGy, DLP Body: 299 mGy*cm. COMPARISONS: [facility] from [facility] on 08/16/2022 FINDINGS: Endotracheal tube is high at the level of the clavicles and could be advanced. Enteric tube has thetip within the stomach. A [place]-Oly catheter has the tip within the main pulmonary artery. The heart is minimally enlarged. There is no pericardial effusion. No filling defects are seen within the pulmonary arteries to suggest the presence of a pulmonary embolism. There is no mediastinal adenopathy. No endobronchial lesions are seen. Medial right upper lobe and left upper lobe atelectasis is present. There is marked collapse of both lower lobes with large, right greater than left pleural effusions. High density material within the gallbladder lumen may be related to vicarious excretion of contrast material. Enteric contrast within the stomach is noted. The osseous structures are intact. Sternotomy wires are present. IMPRESSION: There is no pulmonary embolism. Bilateral lower lobe near complete collapse. Areas of atelectasis bilaterally. Support apparatus as described. WSN: [id number] Ordering Physician: Alanna Reid Dictated By: Luly Milan MD Dictated Date/Time: 09/04/22 10:28 a Reviewed By: Luly Milan MD Signed By: Luly Milan MD Signed Date/Time: 09/04/22 10:28 am Transcribed By: CARON Transcribed Date/Time: 09/04/22 10:25 am Vital Signs Most recent to oldest [Reference Range]: 1 2 3 Height 168 cm (09/24/22 4:02 PM) 168 cm (09/24/22 11:39 AM) 168 cm (09/24/22 7:53 AM) Weight 77.8 kg (09/24/22 5:00 AM) 79.4 kg (09/21/22 6:37 AM) 83.5 kg (09/20/22 5:58 AM) Oxygen Saturation [94-100 %] 94 % (09/24/22 4:02 PM) 97 % (09/24/22 11:39 AM) 94 % (09/24/22 7:53 AM) Pulse Rate [55-90 bpm] 57 bpm (09/24/22 4:02 PM) 61 bpm (09/24/22 11:39 AM) 57 bpm (09/24/22 10:23 AM) Body Mass Index [18.5-24.99 kg/m2] 33.34 kg/m2 *>HHI* (08/29/22 5:47 AM) 29.69 kg/m2 *H* (08/28/22 6:17 AM) 29.27 kg/m2 *H* (08/27/22 10:35 AM) Blood Pressure [90-138/55-84 mm Hg] 103/58mm Hg (09/24/22 4:02 PM) 97/42mm Hg (09/24/22 11:39 AM) 107/55mm Hg (09/24/22 10:23 AM) Respiratory Rate [16-30 br/min] 18 br/min (09/24/22 4:02 PM) 16 br/min (09/24/22 11:39 AM) 16 br/min (09/24/22 7:53 AM) Temperature [96.8-100.4 DegF] 97.5 DegF (09/24/22 4:02 PM) 97.4 DegF (09/24/22 11:39 AM) 97.6 DegF (09/24/22 7:53 AM) Liters per Minute 1 L/min (09/21/22 10:14 AM) 1 L/min (09/21/22 7:31 AM) 1 L/min (09/21/22 4:44 AM) Mode of Delivery (Oxygen) Room air (09/24/22 4:02 PM) Room air (09/24/22 11:39 AM) Room air (09/24/22 7:53 AM) Blood pressure sites Arm, left (09/24/22 4:02 PM) Arm, left (09/24/22 11:39 AM) Arm, left (09/24/22 7:53 AM) Temperature Route Oral (09/24/22 4:02 PM) Oral (09/24/22 11:39 AM) Oral (09/24/22 7:53 AM) Dry Weight 94.1 kg (08/29/22 5:47 AM) 83.8 kg (08/28/22 6:17 AM) 82.6 kg (08/27/22 10:35 AM) Weight Obtained Via Bed scale (09/24/22 5:00 AM) Bed scale (09/20/22 5:58 AM) Bed scale (09/14/22 4:18 AM) Dry Weight Obtained Via Standing scale (08/28/22 6:17 AM) Patient/family stated (08/27/22 10:35 AM) Note * Serina Platt RN: PERFORM, SIGN, VERIFY Event Display: Cardiac Rehab Note Authored Date: Patient: DIA BERNARD Age: 77 years Sex: Female : 1945 Associated Diagnoses: None Author: Serina Platt RN Recommendation and Plan Cardiac Rehab: Attended CV surgery rounds. See CV surgery note for plan of care.. * Di Choi RN: PERFORM Event Display: Discharge/Transfer Note Hospital Authored Date: [id number] Nursing Discharge Note Entered On: 09/24/2022 16:22 EDT Performed On: 09/24/2022 16:22 EDT by Di Choi RN Nursing Discharge Note 2 Discharge Time : 09/24/2022 16:20 EDT Discharge Level of Care at Discharge : [facility] facility Discharge Nursing Homes/Rehab Facilities : [facility] Patient Left Unit Via : Ambulatory Patient Accompanied Off Unit with : Responsible adult DC Instructions Provided & Signed by Pt : Yes Patient Understands D/C Instructions : Yes Patient Instructions Discharge Signed : Yes Did Pt have Specialty Bed or Wound Vac : No Di Choi RN - 09/24/2022 16:22 EDT * Shawanda JACOBSON, Janeena J: MODIFY, MODIFY, MODIFY, MODIFY, MODIFY, PERFORM, MODIFY, MODIFY Event Display: Discharge/Transfer Note Hospital Authored Date: [id number] Patient: ??DIA BERNARD ? Age:??77 Years?Sex:??Female?:??1945?? Patient Information Discharge Location: Primary Care Physician: Not on Staff, PCP Admit Date/Time: 08/28/22 05:26 Discharge Disposition Discharge Disposition: [facility] Facility/Rehab Discharge Diagnosis Heart failure with reduced ejection fraction (I50.20) Right heart failure due to left heart failure (I50.814) Cardiogenic shock (R57.0) Atrial fibrillation with RVR (I48.91) Acute myocardial infarction of anterior wall (I21.09) 3-vessel CAD (I25.10) Anemia of unknown etiology (D64.9) Aortic valve stenosis (I35.0) ?? _ Discharge Medications Acetaminophen (acetaminophen 325 mg oral tablet)?975?Milligram?By Mouth?Every 8 hours apixaban?5?Milligram?By Mouth?2 times a day Aspirin (aspirin 81 mg oral capsule)?1?capsule?81?Milligram?By Mouth?Daily Atorvastatin (atorvastatin 40 mg oral tablet)?40?Milligram?By Mouth?Daily at bedtime Cholecalciferol (Vitamin D3 50 mcg (2000 intl units) oral tablet, chewable)?1?tab(s)?50?Microgram?By Mouth?Daily Digoxin (digoxin 0.125 mg oral tablet)?0.125?Milligram?By Mouth?Every 48 hours Docusate-Senna (Docusate/Senna Tablet)?2?tab(s)?By Mouth?Daily Emollients, Topical (Vashe Topical Solution)?475?Milliliter?Topically?Every 12 hours Epoetin Rodrigo?2?Milliliter?20,000?unit(s)?Subcutaneous Injection?Every week Ferrous Sulfate (ferrous sulfate 325 mg oral enteric coated tablet)?325?Milligram?By Mouth?Daily Folic Acid?Daily Lidocaine Topical (lidocaine 5% topical film)?Topically?Daily Metformin (metFORMIN 500 mg oral tablet)?1?tab(s)?500?Milligram?By Mouth?2 times a day?for 7?Days?Monitor renal function prior to dose change. Metoprolol (Toprol XL 25 mg oral tablet, extended release)?12.5?Milligram?0.5?tablet?By Mouth?Daily Miscellaneous Rx (LIPOSOMAL VITAMIN C)?1?tab(s)?Oral?Daily Multivitamin (B 100 Complex oral tablet)?1?tab(s)?By Mouth?Daily Multivitamin With Minerals (Multivit Therapeutic/Minerals Tablet)?1?tab(s)?By Mouth?Daily Nystatin Topical (Nystatin Powder)?1?applicator?Topically?2 times a day Polyethylene Glycol 3350 (MiraLax Powder)?1?pack/packet?17?gram?By Mouth?Daily Sertraline (sertraline 25 mg oral tablet)?25?Milligram?By Mouth?Daily Tamsulosin (Flomax 0.4 mg oral capsule)?0.4?Milligram?By Mouth?Daily ? Quality Measures Chest Pain, AMI Quality Measures:?Beta-Dez Prescribed at Discharge:??Active Home Medication for Beta-Dez ?Statin Prescribed at Discharge:??Active Home Medication for Statin ? Allergies Allergies ?(Active and Proposed Allergies Only) amoxicillin? (Severity: Unknown severity, Onset: Unknown) ?Reactions: Hives ?? PCP Follow-Up/Heads-Up -Discharged with metformin. Recheck renal labs in 1 week and titrate dose to 100mg bid as per BIDS recommendations??if able -Heart Failure Team recommends 25mg of spironolactone daily. Currently on hold d/t hyperkalemia. Please??check electrolytes in 1 week and continue when appropriate -Pt is on digoxin, please monitor digoxin levels in 1 week --midsternal incision with scabbing, please continue to monitor for any drainage or fever -check cbc in 1 week to monitor for anemia and infection ?? Hospital Course The patient is a 77-year-old female who has a history of hypertension, hyperlipidemia, coronary artery disease, who was found to have moderate aortic stenosis in addition to her triple vessel coronary artery disease. [place] [facility] artery bypass [place] and aortic valve replacement. The aortic stenosis was moderate and there was also AI and, by transesophageal echo, there appeared to be an approximately 5 x 5 mm mobile mass in the LV outflow tract, but there was a 25 mm gradient across the aortic valve. So, aortic valve replacement was planned. ? On 08/28/2022 the patient underwent the following OPERATION: Coronary artery bypass grafting x3 with left internal mammary anastomosed to the left anterior descending, greater saphenous vein graft anastomosed to the right main coronary artery and a radial artery graft anastomosed to the first diagonal branch of the left anterior descending; aortic valve replacement with a 19 mm Inspiris bovine pericardial valve; exploration of the left ventricle using direct vision and a mediastinoscope; cardiopulmonary bypass, hypothermic blood cardioplegic arrest. ? SURGEON: Chad Marques M.D.? Applications Coordinator: Dr. Stone ? Pt being discharged on POD 27 brief review of hospital course as noted in systems review below ? Neuro ??-Post-operative Pain- resolved with multimodal therapy. Can continue Tylenol for outpatient pain management. ?-coccxy pain- lido patch ? Cardiovascular ??CADs/p CABGx3, AVR-T ??Hypotension secondary to vasoplegia RH failure 2nd to LH failure- resolved ??Acute Heart Failure w/ Reduced Ejection Fraction 25% due to Acute distal anterior [place] post CT surgery. Suspect from demand in setting of distal LAD stenosis during sustained rapid afib. ??HX of HTN and HLD ??Afib RVR s/p cardioversion (Cardioverted 08/31 for unstable afib RVR) ??To clinical lab technologist to f/u echo which showed some akinesis - grafts patent- likely demand ischemia due tohypotension, hypoperfusion ??AFIB cardioverted into SR with first degree and LBB (09/06) ??Amio load of ~10 g ??Amio 400 mg PO qd d/c'ed 09/13 and is now rate controlled on digoxin.??Restarting can be discussedat f/u appt. Holding plavix, on eliquis and ASA ??HF consulted: Overloaded- improving ??1. Continue dig-check level in 1 week ??2. Oral lasix- on hold d/t hypotension. Reassess when appropriate to restart ??3. dapagliflozin declined due to cost ??4. Aldactone 25mg daily- on hold d/t hyperkalemia. Check lytes in 1 week and Restart when appropriate. (lytes currently pending) ??5. valsartan 20 mg bid - holding (Resume once BP allows) ??6. 24/26 mg BID Entresto declined due to cost ??7. Toprol XL decreased to 12.5 mg po daily ??Followup with heading and priming tool setter on discharge to titrate antihypertensives ??resume cardiac GDMT when sbp allows. ? PULM ??respiratory insufficiency, postoperative ??Current Smoker-cessation advised ??Room air ? GI ??Cardiac diet-??education provided ??ppi discontinued at discharge Last BM 09/21- continue bowel regimen.??Pt has refused meds during inpatient stay ? Renal ??Metabolic Acidosis: resolved ??Hyponatremia- resolved ??Baseline Creatinine: 0.9-1.0 Hyperkalemia- K 5.3 today; will hold spironolactone at discharge. Lytes ordered for today and will need a recheck in 1 week. Reassess??when appropriate to restart Urinary retention-?? continue tamsulosin ? Heme ??Acute Blood loss anemia- resolved ??Thrombocytopenia-?? resolved; platelets 252k on day of discharge ??started apixaban for PAF persistent intermittent amenia ??-SPEP and immunofixation sent today??based on hematology recommendations.??Cardiac surgery??to follow up outpatient ??-iron and epoetin started ?? Skin ?? Seen by wound care in hospital??for??Moisture associated skin damage- Recommendations included- 1.) Intergluteal Crease: Cleanse with pH balanced spray. Pat dry. Apply Zinc Oxide (orange top cream) thinly. Twice daily and as needed with incontinence episodes. 2.) Continue use of specialty bed/low air loss mattress 3.) Turn and reposition every 2 hours and PRN 4.) Continue incontinence care as well as moisture management; do not utilize Mepilex foam dressingwith incontinence.?? 5.) Continue to offload bony prominences 6.) Float heels 7.) Continue to provide optimal nutritional support 8.) Provide Gaymar cushion to chair when patient OOB? Will have her follow up with wound care clinic as outpatient ? ID: ??leukocytosis resolved ??Zosyn for possible PNA started 09/08 completed 09/12 ? Endo ??stress induced hyperglycemia ??DMII ??A1C 7.6 ??BIDS Discharge recommendations: Patient's A1c 7.6% diet controlled. Over the past 24 hours patient's insulin requirements has been approximately 21 units which is reflective of 0.2 units/kg. Given this I would recommend discontinuing both her basal/bolus insulin at discharge and initiating an oral agent. As long as patient's renal function remains appropriate I would recommend metformin 500 mg twice daily, increasing to 1000 mg twice daily after 1 week. She will need to follow-up with her PCPwithin 1-2 weeks of discharge for further monitoring and management. ? Dispo:??Transfer to Rehab ?? Objective General Appearance: Alert, no acute distress Neurologic: CN 2-12 grossly intact HEENT: PERRLA Cardiac: Rate and rhythm regular. ??S1, S2 heard.? Extremities: No pitting edema bilaterally Vascular: Palpable radial, pedal pulses bilaterally. ?? Respiratory: Lung sounds clear with diminished bases bilaterally. No crackles, wheezing. Respiratory effort is unlabored. On room air Gastrointestinal: Abdomen is soft, nontender, nondistended. ??+Bowel sounds in all 4 quadrants. LBM6/30 Genitourinary: Voiding without issues Integumentary: Midsternal and chest tube incisions clean, dry.??Open to air. Scabbing at sternal incision site Musculoskeletal: ??GRESHAM. Ambulates with assist ? Measurements?? Height: 168 cm (09/24/22) Weight: 77.8 kg (09/24/22) Dry Weight: 94.1 kg (08/29/22) Body Mass Index:??33.34 kg/m2??Critical (08/29/22) ? Vital Signs?? Temperature: 97.6 DegF (09/24/22 07:53:00) Temperature Route: Oral (09/24/22 07:53:00) Pulse Rate: 57 bpm (09/24/22 10:23:00) Respiratory Rate: 16 br/min (09/24/22 07:53:00) Systolic Blood Pressure: 107 mm Hg (09/24/22 10:23:00) Diastolic Blood Pressure: 55 mm Hg (09/24/22 10:23:00) Blood pressure sites: Arm, left (09/24/22 07:53:00) Mean Arterial Pressure: 72 mm Hg (09/24/22 07:53:00) Pulse Pressure: 52 mm Hg (09/24/22 07:53:00) Oxygen Saturation: 94 % (09/24/22 07:53:00) Mode of Delivery (Oxygen): Room air (09/24/22 07:53:00) Early Warning Score: 4 (09/24/22 10:25:28) Patient Education Titles Apixaban Oral Tablet?? Cardiac Surgery Nutrition?? Cardiac Surgery Discharge Instructions?? Follow-Up Appointments Added Follow Up ?Time Frame ?Comments Santos JORDAN, Prakash?1 to 2 weeks Geremias JACOBSON, Dotty Rosales?1 month Shelli JORDAN, Chad Palma?2 to 3 weeks David Stone MD?2 to 5 weeks [facility] Cardiac Re[facility]?2 months?[phone] PCP Not on Staff Results Discharge Labs BACTERIOLOGY MRSA PCR Result Negative, MRSA target DNA not detected. ()?? 09/07/2022 20:51 S Aureus ??PCR Result Negative, SA target DNA not detected. ()?? 09/07/2022 20:51 ?? BLOOD BANK Blood Type O Positive ()?? 09/20/2022 11:00 Antibody Screen Negative ()?? 09/20/2022 11:00 Direct Antiglobulin Test, Anti-IgG Anti-IgG : Negative ()?? 08/31/2022 03:23 Direct Antiglobulin Test, Anti-C3b,-C3d Anti-C3d : Negative ()?? 08/31/2022 03:23 RBC Unit ID [id number] ()?? 09/22/2022 14:44 RBC Available PT ()?? 09/22/2022 14:44 ?? BLOOD COUNT & DIFF WBC 7.6 k/mm3 ()?? 09/24/2022 00:28 RBC 2.87 m/mm3 (Low)?? 09/24/2022 00:28 Hgb 8.7 Gm/dL (Low)?? 09/24/2022 00:28 Hct 27.9 % (Low)?? 09/24/2022 00:28 MCV 97.2 femtoliters ()?? 09/24/2022 00:28 MCH 30.3 pg ()?? 09/24/2022 00:28 MCHC 31.2 g/dL (Low)?? 09/24/2022 00:28 Platelet Count 252 k/mm3 ()?? 09/24/2022 00:28 RDW-SD 87.3 femtoliters (High)?? 09/24/2022 00:28 MPV 10.5 femtoliters ()?? 09/24/2022 00:28 Nucleated RBC (Automated) 0.0 #/100 WBC'S ()?? 09/24/2022 00:28 Abs. NRBC 0.0 k/mm3 ()?? 09/24/2022 00:28 Abs. Neut 12.3 k/mm3 (High)?? 09/11/2022 02:38 Abs. Lymph 1.1 k/mm3 ()?? 09/11/2022 02:38 Abs. [place] 0.9 k/mm3 ()?? 09/11/2022 02:38 Abs. Eo 0.2 k/mm3 ()?? 09/11/2022 02:38 Abs. Baso 0.0 k/mm3 ()?? 09/11/2022 02:38 Neut % 84.3 % (High)?? 09/11/2022 02:38 Lymph % 7.5 % (Low)?? 09/11/2022 02:38 [place] % 6.2 % ()?? 09/11/2022 02:38 Eos % 1.0 % ()?? 09/11/2022 02:38 Baso % 0.1 % ()?? 09/11/2022 02:38 Promyelocyte % 1.0 % ()?? 09/03/2022 03:03 Myelocytes % 1.0 % ()?? 09/01/2022 01:11 Metamyelocyte % 1.0 % ()?? 09/01/2022 01:11 Band % 3.0 % ()?? 09/01/2022 01:11 Peripheral Blood Smear Review Interp. Reviewed by pathologist. ()?? 08/31/2022 05:02 Nucleated RBC 1 /100 WBC ()?? 09/03/2022 03:03 RBC Morphology MODERATE ()?? 09/07/2022 02:27 Platelet Estimate DECREASED ()?? 09/07/2022 02:27 Hemoglobin (POC) POC Cartridge 7.8 Gm/dL (Low)?? 09/09/2022 18:20 Hematocrit (POC) POC Cartridge 23 % (Low)?? 09/09/2022 18:20 Retic Count 3.0 % (High)?? 08/31/2022 05:02 Retic Count Corrected 1.7 % ()?? 08/31/2022 05:02 Retic Production Index 1.2 % ()?? 08/31/2022 05:02 Imm Gran 0.9 % ()?? 09/11/2022 02:38 Abs. Imm Gran 0.1 k/mm3 ()?? 09/11/2022 02:38 ? BLOOD GAS pH (POC) POC Cartridge 7.38 ()?? 09/09/2022 18:20 pCO2 (POC) POC Cartridge 53.7 mm Hg (High)?? 09/09/2022 18:20 pO2 (POC) POC Cartridge 69 mm Hg (Low)?? 09/09/2022 18:20 Estimated Bicarbonate (POC) POC Cart 31.8 mmol/L (High)?? 09/09/2022 18:20 % O2 Sat Arterial (POC) POC Cartridge 93 % (Low)?? 09/09/2022 18:20 FIO2 (POC) POC Cartridge 40 % ()?? 09/06/2022 21:47 pH Venous (POC) POC Cartridge 7.42 ()?? 09/07/2022 04:36 pCO2 Venous (POC) POC Cartridge 49.5 mm Hg ()?? 09/07/2022 04:36 pO2 Venous (POC) POC Cartridge 32 mm Hg (Low)?? 09/07/2022 04:36 Est Bicarbonate (POC) POC Cartridge 31.8 mmol/L (High)?? 09/07/2022 04:36 % O2 Sat Venous (POC) POC Cartridge 61 ()?? 09/07/2022 04:36 Base Excess (POC) POC Cartridge 7 ()?? 09/09/2022 18:20 Specimen Type - Blood Gas ARTERIAL ()?? 09/09/2022 18:20 ? CARDIAC CK, Total 3502 units/L (High)?? 09/03/2022 05:54 CK MB Confirmation - Quant 39.5 ng/mL (High)?? 09/03/2022 05:54 High Sensitivity Troponin (HSTnT) 300 ng/L (Critical)?? 09/03/2022 05:54 ? CHEM GENERAL Sodium 138 mmol/L ()?? 09/24/2022 00:28 Potassium 5.3 mmol/L (High)?? 09/24/2022 00:28 Chloride 101 mmol/L ()?? 09/24/2022 00:28 Bicarbonate Level 28 mmol/L ()?? 09/24/2022 00:28 Anion Gap 9 ()?? 09/24/2022 00:28 Sodium (POC) POC Cartridge 134 mmol/L ()?? 09/09/2022 18:20 Potassium (POC) POC Cartridge 3.5 mmol/L (Low)?? 09/09/2022 18:20 Glucose Level 133 mg/dL (High)?? 09/11/2022 02:38 Glucose (POC) POC Cartridge 138 (High)?? 09/09/2022 18:20 Glucose, POC 92 mg/dL ()?? 09/24/2022 07:57 BUN 29 mg/dL (High)?? 09/24/2022 00:28 Creatinine-Blood 1.2 mg/dL (High)?? 09/24/2022 00:28 Estimated GFR Creatinine 50 ML/MIN/1.73 M2 ()?? 09/24/2022 00:28 Osmolality 274 mOs/kg (Low)?? 09/05/2022 08:31 Calcium, Ionized pH Corrected 1.27 mmol/L ()?? 08/28/2022 19:05 Ionized Calcium (POC) POC Cartridge 1.20 mmol/L ()?? 09/09/2022 18:20 Magnesium 2.0 mg/dL ()?? 09/24/2022 00:28 Protein, Total 4.5 Gm/dL (Low)?? 09/07/2022 04:25 Albumin 2.7 Gm/dL (Low)?? 09/07/2022 04:25 LDH 653 units/L (High)?? 08/31/2022 05:02 Alkaline Phosphatase 54 units/L ()?? 09/07/2022 04:25 AST (SGOT) 38 units/L (High)?? 09/07/2022 04:25 ALT (SGPT) 18 units/L ()?? 09/07/2022 04:25 Bilirubin, Total 0.6 mg/dL ()?? 09/07/2022 04:25 Bilirubin, Direct 0.3 mg/dL ()?? 09/07/2022 04:25 Bilirubin, Indirect 0.3 mg/dL ()?? 09/07/2022 04:25 Vitamin B12 Level 1432 pg/mL (High)?? 09/13/2022 02:32 Folic Acid Level 13.9 ng/mL ()?? 09/13/2022 02:32 Lactate 0.8 mmol/L ()?? 09/08/2022 04:03 Iron Level 36 mcg/dL ()?? 09/13/2022 02:32 Iron Binding Capacity, Unsaturated 177 mcg/dL ()?? 09/13/2022 02:32 Iron Binding Capacity, Estimated Total 206 mcg/dL ()?? 09/10/2022 08:30 % Iron Saturation 23 % ()?? 09/10/2022 08:30 Ferritin Level 649 ng/mL (High)?? 09/13/2022 02:32 ?? COAG INR 1.0 ()?? 09/01/2022 13:09 Protime (PT) 10.3 seconds ()?? 09/01/2022 13:09 APTT 33.0 seconds ()?? 09/10/2022 02:30 Fibrinogen 652 mg/dL (High)?? 08/31/2022 05:02 D-Dimer 1.21 mg/L FEU (High)?? 08/31/2022 05:02 Hep-PF4 Ab Interpretation NEGATIVE ()?? 08/31/2022 05:02 Hit Lina 0.079 OD ()?? 08/31/2022 05:02 POC ACT-Plus 99.0 seconds ()?? 08/28/2022 16:26 YORDAN, Low Dose Heparin <1 ()?? 09/03/2022 11:50 YORDAN, High Dose Heparin <1 ()?? 09/03/2022 11:50 YORDAN Interpretation Comment ()?? 09/03/2022 11:50 ? ENDOCRINE/TUMOR MARKER TSH 3.76 uIU/mL ()?? 09/06/2022 16:20 Free T4 0.70 ng/dL ()?? 09/06/2022 16:20 Cortisol Level 17.5 ??g/dL ()?? 09/06/2022 16:20 ? FLUID STUDIES Color, Fluid RED ()?? 09/04/2022 15:12 Appearance, Fluid BLOODY ()?? 09/04/2022 15:12 WBC, Fluid 144 per Cubic Millimeter ()?? 09/04/2022 15:12 RBC, Fluid [id number] per Cubic Millimeter ()?? 09/04/2022 15:12 Seg, Fluid 39 % ()?? 09/04/2022 15:12 Lymph, Fluid 22 % ()?? 09/04/2022 15:12 [place], Fluid 3 % ()?? 09/04/2022 15:12 Other, Fluid 36 % ()?? 09/04/2022 15:12 Crystal Id NONE SEEN ()?? 09/04/2022 15:12 Fluid pH 7.84 ()?? 09/04/2022 15:12 T. Protein, Fluid 1.1 Gm/dL ()?? 09/04/2022 15:12 Glucose, Fluid 150 mg/dL ()?? 09/04/2022 15:12 Chylomicrons, fluid NONE DETECTED ()?? 09/04/2022 15:12 LDH, Fluid 238 units/L ()?? 09/04/2022 15:12 Albumin, Fluid 0.7 Gm/dL ()?? 09/04/2022 15:12 Body Fluid Smear Interpretation OTHERS IN THIS CASE CONSTITUTE: ()?? 09/04/2022 15:12 ?? IMMUNOLOGY GENERAL Transferrin 170 mg/dL (Low)?? 09/13/2022 02:32 Haptoglobin 33 mg/dL ()?? 08/31/2022 05:02 ?? LIPID STUDIES Cholesterol 15 mg/dL ()?? 09/04/2022 15:12 Triglycerides 22 mg/dL ()?? 09/04/2022 15:12 ?? MISC. CHEMISTRY 25 OH-Vitamin D Level 47.7 ng/mL ()?? 09/13/2022 02:32 Acute Kidney Injury Risk Score 0.22 ()?? 08/30/2022 11:03 ?? TOXICOLOGY/TDM Digoxin Level 1.0 ng/mL ()?? 09/24/2022 00:28 ? UA/URINALYSIS Appear/Color, Urine LIGHT YELLOW ()?? 09/05/2022 10:52 Clarity CLEAR ()?? 09/03/2022 06:20 Specific [place], Urine 1.013 ()?? 09/05/2022 10:52 pH, Urine 6.0 ()?? 09/05/2022 10:52 Albumin, Urine TRACE (Abnormal)?? 09/05/2022 10:52 Glucose, Urine NEGATIVE ()?? 09/05/2022 10:52 Ketones, Urine NEGATIVE ()?? 09/05/2022 10:52 Bilirubin, Urine NEGATIVE ()?? 09/05/2022 10:52 Hemoglobin, Urine 1+ (Abnormal)?? 09/05/2022 10:52 Nitrite, Urine NEGATIVE ()?? 09/05/2022 10:52 Leukocyte, Urine NEGATIVE ()?? 09/05/2022 10:52 Urobilinogen NORMAL mg/dL ()?? 09/05/2022 10:52 WBC's, Urine 1 /HPF ()?? 09/05/2022 10:52 RBC's, Urine 4 /HPF (High)?? 09/05/2022 10:52 Bacteria SLIGHT HPF (Abnormal)?? 09/05/2022 10:52 Squamous Epith 1 /HPF ()?? 09/05/2022 10:52 Transitional Epith <1 /HPF ()?? 09/03/2022 06:20 Hyaline Cast 1 LPF ()?? 09/03/2022 06:20 Granular Cast 1 /LPF ()?? 09/03/2022 06:20 Mucus SLIGHT /LPF ()?? 09/05/2022 10:52 Budding Yeast SLIGHT /HPF ()?? 09/05/2022 10:52 Culture Indication CULTURE NOT INDICATED ()?? 09/03/2022 06:20 ?? URINE OTHER Creatinine, Urine Random 26.6 mg/dL ()?? 09/05/2022 10:52 Sodium, Urine Random 53 mmol/L ()?? 09/05/2022 10:52 Potassium, Urine Random 30.6 mmol/L ()?? 09/05/2022 10:52 Chloride, Urine Random 82 mmol/L ()?? 09/05/2022 10:52 Urea Nitrogen, Urine Random 278.5 mg/dL ()?? 09/05/2022 10:52 Osmolality, Urine Random 318 mOsm/kg ()?? 09/05/2022 10:52 Protein, Total Urine Random 9 mg/dL ()?? 09/05/2022 10:52 TP/Cr Ratio 0.33 (High)?? 09/05/2022 10:52 Creatinine, Urine 26.6 mg/dL ()?? 09/05/2022 10:52 Malb/Creat Ratio Unable to calculate mg/Gm ()?? 09/05/2022 10:52 Urine Creat For Micro Alb 26.6 mg/dL ()?? 09/05/2022 10:52 Micro-Albumin <12.0 mg/L ()?? 09/05/2022 10:52 Est Creatinine Clearance 38.13 mL/min ()?? 09/24/2022 02:34 ? VIROLOGY Adenovirus by PCR NEGATIVE ()?? 09/01/2022 01:11 Coronavirus 229E by PCR (not COVID-19) NEGATIVE ()?? 09/01/2022 01:11 Coronavirus HKU1 by PCR (not COVID-19) NEGATIVE ()?? 09/01/2022 01:11 Coronavirus NL63 by PCR (not COVID-19) NEGATIVE ()?? 09/01/2022 01:11 Coronavirus OC43 by PCR (not COVID-19) NEGATIVE ()?? 09/01/2022 01:11 Human Metapneumovirus by PCR NEGATIVE ()?? 09/01/2022 01:11 Rhinovirus/Enterovirus by PCR NEGATIVE ()?? 09/01/2022 01:11 Influenza A by PCR NEGATIVE ()?? 09/01/2022 01:11 Influenza B by PCR NEGATIVE ()?? 09/01/2022 01:11 Parainfluenza 1 by PCR NEGATIVE ()?? 09/01/2022 01:11 Parainfluenza 2 by PCR NEGATIVE ()?? 09/01/2022 01:11 Parainfluenza 3 by PCR NEGATIVE ()?? 09/01/2022 01:11 Parainfluenza 4 by PCR NEGATIVE ()?? 09/01/2022 01:11 RSV by PCR NEGATIVE ()?? 09/01/2022 01:11 Bordetella Pertussis by PCR NEGATIVE ()?? 09/01/2022 01:11 Chlamydophila Pneumoniae by PCR NEGATIVE ()?? 09/01/2022 01:11 Mycoplasma Pneumoniae by PCR NEGATIVE ()?? 09/01/2022 01:11 COVID-19 by RT-PCR NEGATIVE ()?? 09/01/2022 01:11 COVID-19 (SARS-CoV-2) by PCR NEGATIVE ()?? 09/01/2022 01:11 Bordetella Parapertussis by PCR NEGATIVE ()?? 09/01/2022 01:11 ? Microbiology ?? Blood Culture?? Completed?? Source: Blood Body Site: ?? Collected Dt/Tm: 08/28/2022 08:42 Last Updated Dt/Tm: 08/28/2022 09:41 ?SPECIMEN DESCRIPTION : BLOOD ??L ACSPECIAL REQUESTS : NONECULTURE : NO GROWTH 5 DAYS.REPORT STATUS : FINAL 09/02/2022 Blood Culture #2?? Completed?? Source: Blood Body Site: ?? Collected Dt/Tm: 08/28/2022 08:42 Last Updated Dt/Tm: 08/28/2022 09:42 ?SPECIMEN DESCRIPTION : BLOOD ??CENTRAL LINESPECIAL REQUESTS : NONECULTURE : NO GROWTH 5 DAYS.REPORT STATUS : FINAL 09/02/2022 ? 60??minutes spent on discharge * Mercy HOOPER, Sonali: PERFORM, SIGN, VERIFY Event Display: Case Management Discharge Plan Authored Date: [id number] Patient: DIA BERNARD Age: 77 years Sex: Female : 1945 Associated Diagnoses: None Author: Mercy HOOPER, Sonali Discharge Plan Case Management Discharge Plan : Case Management Discharge Plan Data 09/24/2022 11:41 EDT Discharge Level of Care at Discharge [facility] facility Discharge Nursing Homes/Rehab Facilities [facility] Discharge Transportation Arranged [facility] [address] [facility] [id number] [phone] Discharge Arranged Transport Date/Time 09/24/2022 16:00 Mode of Transportation Arranged Ambulance Name of Agency #1 [facility] Service Categories #1 Occupational Therapy, Physical Therapy, [facility], 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 Surveys are administered by [employer] ?? If further treatment with your primary care physician or another doctor is recommended, it is important for you to keep the appointment. Call your primary care physician or return to the Emergency Department immediately if your condition worsens, fails to improve, or new symptoms develop. If you need to find a doctor, you can call [facility] [place] [employer] [facility] for a referral at [phone] or toll free at [phone] or log in to [email or web address].. ?? You can view and manage your care through the patient portal or by using a health care alonzo of your choosing. [employer] is a website that allows you to securely view your medical information including your hospital discharge summary, office visit summaries, medications and follow-up visits. You can also request appointments, renew medications, and request access to your medical information using a health care alonzo of your choosing, or just ask a question. You can enroll at [email or web address] or register during your next office visit. You have been discharged from [facility], Patient Care Unit: M6. If you have any questions regarding these instructions after you leave, please call us and we will be happy to assist you. 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 You may have had other tests and procedures not included in this list. Please discuss all test results with your provider. 25OH VITAMIN D ABG POC CARTRIDGE Albumin Fluid BASE EXCESS POC CARTRIDGE BODY FLUID SMEAR REVIEW BUN CALCIUM IONIZED POC CART CBC CBC w/ Differential Chylous Effusion CK (CREATINE KINASE) CK w/ Reflex CKMB CKMB CONFIRMATION/QUANT Complete Urinalysis/Reflex Culture CORTISOL COVID-19 (Novel Coronavirus), Rapid PCR Creatinine D Dimer Digoxin Level Direct Valerio Test Electrolytes Ferritin Fibrinogen FOLIC ACID FREE T4 Glucose Fluid Glucose Level GLUCOSE POC GLUCOSE POC CARTRIDGE H + H HAPTOGLOBIN HEMATOCRIT ONLY HEMATOCRIT POC CARTRIDGE HEMOCHRON ACT-PLUS HEMOGLOBIN POC CARTRIDGE Heparin Induced Platelet Ab (PF4) HEPATIC FUNCTION PANEL Hgb + Hct Immunofixation Serum?-- Results Pending -- INR Ionized Calcium Iron + Iron Binding Capacity Iron Binding Capacity Unsaturated Iron Level K Level Lactate Level LDH LDH Fluid LFT's Lytes Magnesium Level Microalbumin Urine MRSA PCR Nasal Swab Nephro Check O2 PERCENT (POINT OF CARE) Osmolality Peripheral Blood Smear Review pH Fluid Platelet Count Potassium Level POTASSIUM POC CARTRIDGE Protein Fluid PT (INR) PTT Respiratory Pathogen PCR with COVID-[address] Serotonin Release Assay, Serum SODIUM POC CARTRIDGE Sodium Urine Transferrin Troponin T, High Sensitivity TSH Type and Screen UA UA W/Reflex Culture & Renal UREA NITROGEN, URINE MG/DL Urine Chloride Urine Creatinine Urine Osmolality Urine Potassium Urine Protein/Creatinine Ratio VBG POC CARTRIDGE VITAMIN B12 CT Angio Chest CXR Portable Doppler Ext Lower Venous Bilat (US) PCXR Portable Chest US Doppler Ext Upper Venous Bilat Ltd XR C-Arm < 1 Hour XR Chest Portable You will be contacted within 72 hours with your results. Primary Care Provider Not on Staff, PCP Advance Directive Health Care Proxy on File No Discharge Vitals Temperature: 97.4 DegF Height: 168 cm Pulse Rate: 61 bpm Weight: 77.8 kg Respiratory Rate: 16 br/min Body Mass Index:??33.34 kg/m2??Critical Systolic Blood Pressure: 97 mm Hg Body surface area: 2.12 Diastolic Blood Pressure:??42 mm Hg??Low ?? Oxygen Saturation: 97 % ?? Studies Pending All tests and labs ordered during this hospital stay have been completed unless listed below. Please discuss all pending results with your provider listed above in these instructions. ?? Add On Lab Order BUN CBC Creatinine Digoxin Level Electrolytes Immunofixation Serum Magnesium Level Protein Electrophoresis (SPEP) Transfuse RBCs What to do next Instructions From Your Doctor Discharge Orders You Need to Schedule the Following Appointments Follow Up with??Prakash Graham MD When:??Within 1 to 2 weeks Where: [address] [facility] [place] [address]- Follow Up with??Geremias JACOBSON, Dotty Rosales When:??Within 1 month Where: [address] [facility] [place] [address]- Follow Up with??Shelli JORDAN, Chad Palma When:??Within 2 to 3 weeks Where: [address] [facility] [place] [address]- Follow Up with??David Stone MD When:??Within 2 to 5 weeks Where: [address] [facility] [address] [facility] [place] [address]- Follow Up with??[facility] When:??Within 2 months Why: [phone] Where: [address] [place], [place] Follow Up with??PCP Not on Staff When:??In 0 days Discharge Medications DIA BERNARD :1945 Visit Date:08/28/2022 Medications: Please continue your medications until treatment is completed or stopped by your provider. Medications not listed below should be discontinued. Discuss any questions related to medications with your provider. What How Much When Instructions Next Dose New Acetaminophen (acetaminophen 325 mg oral tablet) 975 Milligram Oral Every 8 hours today at 6 pm New apixaban 5 Milligram Oral Twice a day tonight at 9 pm New Digoxin (digoxin 0.125 mg oral tablet) 0.125 Milligram Oral Every 48 hours tomorrow at 4 pm New Docusate-Senna (Docusate/ Senna Tablet) 2 tab(s) Oral Daily tomorrow in am New Emollients, Topical (Vashe Topical Solution) 475 Milliliter Topically Every 12 hours tonight at 9 pm New Epoetin Rodrigo 20,000 unit(s) Subcutaneous Injection Every week last dose given 09/24/22 at 14:30 New Ferrous Sulfate (ferrous sulfate 325 mg oral enteric coated tablet) 325 Milligram Oral Daily tomorrow in am New Lidocaine Topical (lidocaine 5% topical film) Topically Daily tomorrow in am New Metformin (metFORMIN 500 mg oral tablet) 1 tab(s) Oral Twice a day Duration: 7 Days Monitor renal function prior to dose change. ?? Pickup at [facility] 3 resume your home regimen New Multivitamin With Minerals (Multivit Therapeutic/ Minerals Tablet) 1 tab(s) Oral Daily tomorrow in am New Nystatin Topical (Nystatin Powder) 1 applicator Topically Twice a day resume your home regimen New Polyethylene Glycol 3350 (MiraLax Powder) 17 gram Oral Daily tomorrow in am New Remove Patch remove at bedtime ?? at bedtime New Sertraline (sertraline 25 mg oral tablet) 25 Milligram Oral Daily tomorrow in am New Tamsulosin (Flomax 0.4 mg oral capsule) 0.4 Milligram Oral Daily tomorrow in am Changed Atorvastatin (atorvastatin 40 mg oral tablet) 40 Milligram Oral Daily at Bedtime tonight at bedtime Changed Metoprolol (Toprol XL 25 mg oral tablet, extended release) 0.5 tab(s) Oral Daily tomorrow in am Unchanged Aspirin (aspirin 81 mg oral capsule) 1 capsule Oral Daily tomorrow in am Unchanged Cholecalciferol (Vitamin D3 50 mcg (2000 intl units) oral tablet, chewable) 1 tab(s) Oral Daily resume your home regimen Unchanged Folic Acid Daily resume your home regimen Unchanged Miscellaneous Rx (LIPOSOMAL VITAMIN C) 1 tab(s) Oral Daily resume your home regimen Unchanged Multivitamin (B 100 Complex oral tablet) 1 tab(s) Oral Daily resume your home regimen Pharmacy Information [facility]: [address], [place] [id number] [phone] ?? What How Much When Comments Stop Taking Amlodipine (amlodipine 10 mg oral tablet) 1 tab(s) Oral Daily Duration: 90 Days Stop Taking Clopidogrel (Plavix 75 mg oral tablet) 1 tab(s) Oral Daily Stop Taking Losartan (losartan 100 mg oral tablet) 1 tab(s) Oral Daily Stop Taking Magnesium Chloride Test Results Below is a partial list of the most recent Laboratory test results done prior to this discharge. You may have had other tests and procedures not included in this list. Please discuss all test resultswith your provider. Est Creatinine Clearance - 38.13 mL/min (09/24/2022) RBC Available - PT (09/22/2022) RBC Unit ID - [id number] (09/22/2022) (08/31/2022) ? ?Serological Investigation Report -

Patient Name: DIA NG Lab 97
Patient : 1945 (Age: 77) Collection Date: 08/31/2022
Accession Date: 08/31/2022
&a mp;nbsp; Sign Out Date: 09/14/2022

& lt;br/>

Tissue Source:
1:TMS Direct Antiglobulin Test
&l t;br/>

Final Diagnosis:
SEROLOGICAL INVESTIGATION/CONSULTATION REPORT

REASON FOR REPORT: Results from Direct Antiglobulin Testing

Clinical Data:
Diagnosis: Three- vessel coronary artery disease, aortic valve stenosis

Previous History:
Serological Testing Problems: No known serological testing problems at [facility].

Transfusion History: & amp;nbsp;One red cell unit transfusion on 08/30/2022

LABORATORY INVESTIGATION

RED CELL STUDIES

DIRECT ANTIGLOBULIN TEST: &nb sp;Anti-IgG and [id number] antisera

ASSESSMENT:
Antibody or complement binding to the red blood cells is undetectable using conventional antiglobulin testing. Absence of immunoglobulin or complement binding to the red blood cell membrane usually implies non-immune causes for the anemia. Clinical correlation and pertinent additional laboratory testing are advised.

It should be noted that a subset of patients with immune mediated hemolysis, however, can have a negative direct antiglobulin test (i.e., Valerio&rsquo; Negative Autoimmune Hemolytic Anemia).

RECOMMENDATIONS:
Continued hemolysis of unknown etiology, or suspicion of enhanced immune mediated red blood cells clearance are indications for repeat and/or more sensitive immunoserologic investigations.

For a further discussion of this report, please contact the Transfusion Medicine Service at [phone].

Primary Pathologist:LALY GARZA M.D.
electronically signed out by: LALY GARZA M.D. /

<br/& gt;

Phone #: [phone], On-Call Pathologist: [phone] (08/28/2022) ? ?Surgical Pathology - Patient Name: DIA BERNARD
Lab
Patient : 1945 (Age: 77)
Collection Date: 08/28/2022
Accession Date: 08/29/2022
Sign Out Date: 09/05/2022

<br/&gt ;Tissue Source:
1:AORTIC VALVE LEAFLETS

Final Diagnosis:&l t;br/>Aortic valve leaflets, excision:
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

Primary Pathologist:Alicia Nielson M.D.
electronically signed out by: Alicia Nielson M.D. / USHA

Clinical History:
Aortic stenosis

Gross Description:
Labeled aortic valve leaflets . Received in formalin are 3 hoffman-yellow, semilunar fragments of valve tissue which range from 1.6 x 1.2 x 0.2 cm up to 2.2 x 1.2 x 0.2 cm. Moderate fatty streaking and minimal calcified vegetations are present. Monument Stonecutter sections are submitted following brief decalcification.
1-3 pieces. (KM)*

Phone #: [phone], On-Call Pathologist: [phone] (09/04/2022) ? ?Cytology Reports General - Patient Name: DIA BERNARD
Patient : 1945 (Age: 77)
Lab
Collection Date: 09/04/2022
Accession Date: 09/05/2022
Sign Out Date: 09/07/2022

Tissue Source:
1: PLEURAL FLUID, RIGHT:

Final Diagnosis:

PLEURAL FLUID, RIGHT:
NEGATIVE FOR MALIGNANT CELLS.
Thecell block confirms the above findings.

Clinical History:
Date of Last Menstrual Period: not available
Menstrual History: not available
Contraceptive History: not available
Ancillary Testing: not available
Clinical History (other): Right pleural effusion

Gross Description:
Received 5cc of bright red, opaque fluid
1 ThinPrep cellular enhancement technique
Cell block 09/05/2022

Primary Pathologist:
Daja Ordoñez M.D.
Phone #: [phone], On-Call Pathologist: [phone] 25OH VITAMIN D (09/13/2022) ???25 OH-Vitamin D Level - 47.7 ng/mL ABG POC CARTRIDGE (09/09/2022) ???pH (POC) POC Cartridge - 7.38???pCO2 (POC) POC Cartridge - 53.7 mm Hg???pO2 (POC) POC Cartridge - 69 mm Hg???Estimated Bicarbonate (POC) POC Cart - 31.8 mmol/L???% O2 Sat Arterial (POC) POC Cartridge - 93 %???Specimen Type - Blood Gas - ARTERIAL Albumin Fluid (09/04/2022) ???Albumin, Fluid - 0.7 Gm/dL BASE EXCESS POC CARTRIDGE (09/09/2022) ???Base Excess (POC) POC Cartridge - 7 BODY FLUID SMEAR REVIEW (09/04/2022) ???Body Fluid Smear Interpretation - OTHERS IN THIS CASE CONSTITUTE: BUN (09/24/2022) ???BUN - 29 mg/dL CALCIUM IONIZED POC CART (09/09/2022) ???Ionized Calcium (POC) POC Cartridge - 1.20 mmol/L CBC (09/24/2022) ???WBC - 7.6 k/mm3???RBC - 2.87 m/mm3???Hgb - 8.7 Gm/dL???Hct - 27.9 %???MCV - 97.2 femtoliters???MCH - 30.3 pg???MCHC - 31.2 g/dL???Platelet Count - 252 k/mm3???RDW-SD - 87.3 femtoliters???MPV - 10.5 femtoliters???Nucleated RBC (Automated) - 0.0 #/100 WBC'S???Abs. NRBC - 0.0 k/mm3 CBC w/ Differential (09/11/2022) ???WBC - 14.6 k/mm3???RBC - 2.25 m/mm3???Hgb - 6.9 Gm/dL???Hct - 22.4 %???MCV - 99.6 femtoliters???MCH - 30.7 pg???MCHC - 30.8 g/dL???Platelet Count - 139 k/mm3???RDW-SD - 62.7 femtoliters???MPV - 9.7 femtoliters???Nucleated RBC (Automated) - 0.0 #/100 WBC'S???Abs. NRBC - 0.0 k/mm3???Abs. Neut - 12.3 k/mm3???Abs. Lymph - 1.1 k/mm3???Abs. [place] - 0.9 k/mm3???Abs. Eo - 0.2 k/mm3???Abs. Baso - 0.0 k/mm3???Neut % - 84.3 %???Lymph % - 7.5 %???[place] % - 6.2 %???Eos % - 1.0 %???Baso % - 0.1 %???Imm Gran- 0.9 %???Abs. Imm Gran - 0.1 k/mm3 Chylous Effusion (09/04/2022) ???Cholesterol - 15 mg/dL???Triglycerides - 22 mg/dL???Color, Fluid - RED???Appearance, Fluid - BLOODY???WBC, Fluid - 144 per Cubic Millimeter???RBC, Fluid - 897911 per Cubic Millimeter???Seg, Fluid - 39 %???Lymph, Fluid - 22 %???[place], Fluid - 3 %???Other, Fluid - 36 %???Crystal Id - NONE SEEN???Racheal lomicrons, fluid - NONE DETECTED CK (CREATINE KINASE) (09/03/2022) ???CK, Total - 2882 units/L CK w/ Reflex CKMB (09/03/2022) ???CK, Total - 3502 units/L CKMB CONFIRMATION/QUANT (09/03/2022) ???CK MB Confirmation - Quant - 39.5 ng/mL Complete Urinalysis/Reflex Culture (09/03/2022) ???Appear/Color, Urine - YELLOW???Clarity - CLEAR???Specific [place], Urine - 1.025???pH, Urine - 6.0???Albumin, Urine - TRACE???Glucose, Urine - NEGATIVE???Ketones, Urine - NEGATIVE???Bilirubin, Urine - NEGATIVE???Hemoglobin, Urine - 2+???Nitrite, Urine - NEGATIVE???Leukocyte, Urine - NEGATIVE???Ur obilinogen - NORMAL???WBC's, Urine - 3 /HPF???RBC's, Urine - 3 /HPF???Squamous Epith - 1 /HPF???Transitional Epith - <1 /HPF? ?Hyaline Cast - 1 LPF? ?Granular Cast - 1 /LPF? ?Mucus - SLIGHT? ?Budding Yeast - SLIGHT???Culture Indication - CULTURE NOT INDICATED CORTISOL (09/06/2022) ???Cortisol Level - 17.5 ??g/dL COVID-19 (Novel Coronavirus), Rapid PCR (09/01/2022) ???COVID-19 by RT-PCR - NEGATIVE Creatinine (09/24/2022) ???Creatinine-Blood - 1.2 mg/dL???Estimated GFR Creatinine - 50 ML/MIN/1.73 M2 D Dimer (08/31/2022) ???D-Dimer - 1.21 mg/L FEU Digoxin Level (09/24/2022) ???Digoxin Level - 1.0 ng/mL Direct Valerio Test (08/31/2022) ???Direct Antiglobulin Test, Anti-IgG - Anti-IgG : Negative???Direct Antiglobulin Test, Anti-C3b,-C3d - Anti-C3d : Negative Electrolytes (09/24/2022) ???Sodium - 138 mmol/L???Potassium - 5.3 mmol/L???Chloride - 101 mmol/L???Bicarbonate Level - 28 mmol/L???Anion Gap - 9 Ferritin (09/13/2022) ???Ferritin Level - 649 ng/mL Fibrinogen (08/31/2022) ???Fibrinogen - 652 mg/dL FOLIC ACID (09/13/2022) ???Folic Acid Level - 13.9 ng/mL FREE T4 (09/06/2022) ???Free T4 - 0.70 ng/dL Glucose Fluid (09/04/2022) ???Glucose, Fluid - 150 mg/dL Glucose Level (09/11/2022) ???Glucose Level - 133 mg/dL GLUCOSE POC (09/24/2022) ???Glucose, POC - 120 mg/dL GLUCOSE POC CARTRIDGE (09/09/2022) ???Glucose (POC) POC Cartridge - 138 H + H (09/02/2022) ???Hgb - 7.6 Gm/dL???Hct - 23.3 % HAPTOGLOBIN (08/31/2022) ???Haptoglobin - 33 mg/dL HEMATOCRIT ONLY (08/28/2022) ???Hct - 24.4 % HEMATOCRIT POC CARTRIDGE (09/09/2022) ???Hematocrit (POC) POC Cartridge - 23 % HEMOCHRON ACT-PLUS (08/28/2022) ???POC ACT-Plus - 99.0 seconds HEMOGLOBIN POC CARTRIDGE (09/09/2022) ???Hemoglobin (POC) POC Cartridge - 7.8 Gm/dL Heparin Induced Platelet Ab (PF4) (08/31/2022) ???Hep-PF4 Ab Interpretation - NEGATIVE???Hit Lina - 0.079 OD HEPATIC FUNCTION PANEL (09/07/2022) ???Protein, Total - 4.5 Gm/dL???Albumin - 2.7 Gm/dL???Alkaline Phosphatase - 54 units/L???AST (SGOT) - 38 units/L???ALT (SGPT) - 18 units/L???Bilirubin, Total - 0.6 mg/dL???Bilirubin, Direct - 0.3 mg/dL???Bilirubin, Indirect - 0.3 mg/dL Hgb + Hct (08/28/2022) ???Hgb - 9.5 Gm/dL???Hct - 28.7 % INR (09/01/2022) ???INR - 1.0???Protime (PT) - 10.3 seconds Ionized Calcium (08/28/2022) ???Calcium, Ionized pH Corrected - 1.27 mmol/L Iron + Iron Binding Capacity (09/10/2022) ???Iron Level - 48 mcg/dL???Iron Binding Capacity, Unsaturated - 158 mcg/dL???Iron Binding Capacity, Estimated Total - 206 mcg/dL???% Iron Saturation - 23 % Iron Binding Capacity Unsaturated (09/13/2022) ???Iron Binding Capacity, Unsaturated - 177 mcg/dL Iron Level (09/13/2022) ???Iron Level - 36 mcg/dL K Level (09/10/2022) ???Potassium - 4.0 mmol/L Lactate Level (09/08/2022) ???Lactate - 0.8 mmol/L LDH (08/31/2022) ???LDH - 653 units/L LDH Fluid (09/04/2022) ???LDH, Fluid - 238 units/L LFT's (08/31/2022) ???Protein, Total - 3.9 Gm/dL???Albumin - 2.3 Gm/dL???Alkaline Phosphatase - 46 units/L???AST (SGOT) - 44 units/L???ALT (SGPT) - 22 units/L???Bilirubin, Total - 0.4 mg/dL???Bilirubin, Direct - 0.2 mg/dL???Bilirubin, Indirect - 0.2 mg/dL Lytes (09/07/2022) ???Sodium - 133 mmol/L???Potassium - 3.8 mmol/L???Chloride - 96 mmol/L???Bicarbonate Level - 28 mmol/L???Anion Gap - 9 Magnesium Level (09/24/2022) ???Magnesium - 2.0 mg/dL Microalbumin Urine (09/05/2022) ???Malb/Creat Ratio - Unable to calculate???Urine Creat For Micro Alb - 26.6 mg/dL???Micro-Albumin - <12.0 mg/L MRSA PCR Nasal Swab (09/07/2022) ???MRSA PCR Result - Negative, MRSA target DNA not detected.???S Aureus PCR Result - Negative, SA target DNA not detected. Nephro Check (08/30/2022) ???Acute Kidney Injury Risk Score - 0.22 O2 PERCENT (POINT OF CARE) (09/06/2022) ???FIO2 (POC) POC Cartridge - 40 % Osmolality (09/05/2022) ???Osmolality - 274 mOs/kg Peripheral Blood Smear Review (08/31/2022) ???Peripheral Blood Smear Review Interp. - Reviewed by pathologist. pH Fluid (09/04/2022) ???Fluid pH - 7.84 Platelet Count (08/28/2022) ???Platelet Count - 120 k/mm3 Potassium Level (09/06/2022) ???Potassium - 2.9 mmol/L POTASSIUM POC CARTRIDGE (09/09/2022) ???Potassium (POC) POC Cartridge - 3.5 mmol/L Protein Fluid (09/04/2022) ???T. Protein, Fluid - 1.1 Gm/dL PT (INR) (08/31/2022) ???INR - 0.9???Protime (PT) - 10.1 seconds PTT (09/10/2022) ???APTT - 33.0 seconds Respiratory Pathogen PCR with COVID-19 (09/01/2022) ???Adenovirus by PCR - NEGATIVE???Coronavirus 229E by PCR (not COVID-19) - NEGATIVE???Coronavirus HKU1 by PCR (not COVID-19) - NEGATIVE???Coronavirus NL63 by PCR (not COVID-19) - NEGATIVE???Coronavirus OC43 by PCR (not COVID-19) - NEGATIVE???Human Metapneumovirus by PCR - NEGATIVE???Rhinovirus/Enterovirus by PCR - NEGATIVE???Influenza A by PCR - NEGATIVE???Influenza B by PCR - NEGATIVE???Parainfluenza 1 by PCR - NEGATIVE???Parainfluenza 2 by PCR - NEGATIVE???Parainfluenza 3 by PCR - NEGATIVE???Parainfluenza 4 by PCR - NEGATIVE???RSV by PCR - NEGATIVE???Bordetella Pertussis by PCR - NEGATIVE??? Chlamydophila Pneumoniae by PCR - NEGATIVE???Mycoplasma Pneumoniae by PCR - NEGATIVE???COVID-19 (SARS-CoV-2) by PCR - NEGATIVE???Bordetella Parapertussis by PCR - NEGATIVE Reticulocyte Ct (08/31/2022) ???Retic Count - 3.0 %???Retic Count Corrected - 1.7 %???Retic Production Index - 1.2 % Serotonin Release Assay, Serum (09/03/2022) ? ?YORDAN, Low Dose Heparin - <1? ?YORDAN, High Dose Heparin - <1? ?YORDAN Interpretation - Comment SODIUM POC CARTRIDGE (09/09/2022) ???Sodium (POC) POC Cartridge - 134 mmol/L Sodium Urine (09/05/2022) ???Sodium, Urine Random - 53 mmol/L Transferrin (09/13/2022) ???Transferrin - 170 mg/dL Troponin T, High Sensitivity (09/03/2022) ???High Sensitivity Troponin (HSTnT) - 300 ng/L TSH (09/06/2022) ???TSH - 3.76 uIU/mL Type and Screen (09/20/2022) ???Blood Type - O Positive???Antibody Screen - Negative UA (09/05/2022) ???Appear/Color, Urine - LIGHT YELLOW???Specific [place], Urine - 1.013???pH, Urine - 6.0???Albumin, Urine - TRACE???Glucose, Urine - NEGATIVE???Ketones, Urine - NEGATIVE???Bilirubin, Urine - NEGATIVE???Hemoglobin, Urine - 1+???Nitrite, Urine - NEGATIVE???Leukocyte, Urine - NEGATIVE???Urobilinogen - NORMAL???WBC's, Urine - 1 /HPF???RBC's, Urine - 4 /HPF???Bacteria - SLIGHT???Squamous Epith - 1 /HPF???Mucus - SLIGHT???Budding Yeast - SLIGHT UA W/Reflex Culture & Renal (08/31/2022) ? ?Appear/Color, Urine - LIGHT YELLOW? ?Clarity - CLEAR? ?Specific [place], Urine - >1.050? ?pH,Urine - 6.0???Albumin, Urine - TRACE???Glucose, Urine - NEGATIVE???Ketones, Urine - 1+???Bilirubin,Urine - NEGATIVE???Hemoglobin, Urine - NEGATIVE???Nitrite, Urine - NEGATIVE???Leukocyte, Urine - NEGATIVE? ?Urobilinogen - NORMAL? ?WBC's, Urine - 1 /HPF? ?RBC's, Urine - 2 /HPF? ?Squamous Epith - <1 /HPF???Culture Indication - CULTURE NOT INDICATED UREA NITROGEN, URINE MG/DL (09/05/2022) ???Urea Nitrogen, Urine Random - 278.5 mg/dL Urine Chloride (09/05/2022) ???Chloride, Urine Random - 82 mmol/L Urine Creatinine (09/05/2022) ???Creatinine, Urine Random - 26.6 mg/dL Urine Osmolality (09/05/2022) ???Osmolality, Urine Random - 318 mOsm/kg Urine Potassium (09/05/2022) ???Potassium, Urine Random - 30.6 mmol/L Urine Protein/Creatinine Ratio (09/05/2022) ???Protein, Total Urine Random - 9 mg/dL???TP/Cr Ratio - 0.33???Creatinine, Urine - 26.6 mg/dL VBG POC CARTRIDGE (09/07/2022) ???pH Venous (POC) POC Cartridge - 7.42???pCO2 Venous (POC) POC Cartridge - 49.5 mm Hg???pO2 Venous(POC) POC Cartridge - 32 mm Hg???Est Bicarbonate (POC) POC Cartridge - 31.8 mmol/L???% O2 Sat Venous (POC) POC Cartridge - 61???Specimen Type - Blood Gas - MIXED VENOUS VITAMIN B12 (09/13/2022) ???Vitamin B12 Level - 1432 pg/mL Allergies (NKA means No Known Allergies) amoxicillin??(Hives) Problems Active Problems??(8) Acute myocardial infarction of anterior wall?? Atrial fibrillation with RVR?? Cardiogenic shock?? Diabetes mellitus - adult onset?? Heart failure with reduced ejection fraction?? Hypertension?? Obese class I?? Right heart failure due to left heart failure?? Education Materials Below is the list of Educational Leaflet Providered with your Discharge Instructions. How to Quit Smoking?? Apixaban Oral Tablet?? Cardiac Surgery Nutrition?? Cardiac Surgery Discharge Instructions?? Valuables and Belongings I fully understand and agree that [facility] accepts no responsibility for all my [...] to send valuables and belongings home. ?? Review of Valuable and Belonging List: With patient Possessions released to: family took all valuables home Date for Pt to Sign Valuables/Belongings: 09/11/22 18:34:00 ?? Other Discharge Information ?? Wound Assessment?? Wound Assessment?? Wound Location I: Coccyx Wound Type I: Pressure/partial thickness Wound I, Wound Base: red Wound I, Present on Admission: No Surgical Incision Type I: Surgical Surgical Incision Location I: Sternum Surgical Incision Assessment I: Clean, dry, intact Surgical Incision I, Surrounding Skin: Intact, Dry Surgical Incision I, Odor: No Surgical Incision Type II: Surgical Surgical Incision Location II: Leg, right lower Surgical Incision Assessment II: Clean, dry, intact Surgical Incision II, Surrounding Skin: Intact Surgical Incision II, Odor: No Surgical Incision Type III: Surgical Surgical Incision Location III: Leg, right lower Surgical Incision Assessment III: Clean, dry, intact Surgical Incision III, Surrounding Skin: Intact Surgical Incision III, Odor: No ? Case Management Discharge Plan?? Discharge Plan?? Discharge Agency Information?? Discharge Level of Care at Discharge: [facility]P facility Name of Agency #1: [facility] Discharge Rx Program: Discharge Prescription Program Service Start Date and Time #1: 09/24/22 16:00:00 Discharge Rx Program: Discharge Prescription Program Service Categories #1: Occupational Therapy, Physical Therapy, [facility], Purchasing Contracting Clerk Discharge Transportation Arranged: [facility] [address] [facility] [phone] Name of Person Notified of Transfer: Jah Lewis Mode of Transportation Arranged: Ambulance ?? Discharge Arranged Transport Date/Time: 09/24/22 16:00:00 ?? Discharge Nursing Homes/Rehab Facilities: [facility] ? Pulmonary Rehab Status?? Pulmonary Rehab Discharge Status?? CPAP/BiPAP Mask Type: Full CPAP/BiPAP Mask Size: Medium Respiratory Rate: 16 br/min PEEP: 5 ?? Psychiatric Discharge Plan?? Other Agency?? Other Comments: Patient was not given any Ensure ?? Cardiac Rehab Assessment?? Cardiac Rehab Inpatient Assessment?? Comments-Education: Post op recovery, home activity Comments-Smoking Cessation: provide education and resources Comments-Exercise Activity: IS, AROM, progressive ambulation, phase 2 referral Comments-Nutrition: per RD Comments-Lipids: meds and diet Patient attending Phase II: Yes Phase II Site of Care: [address] [id number] [phone] Common Emergency Awareness Tips IS IT A [...] are strongly encouraged to quit. Please call [facility] [employer] [facility] at [phone] or [phone] ([phone]) or log in to [email or web address] for referrals to smoking cessation programs. ?? 449 Suicide & Crisis Lifeline is available 15/10 if you or someone you know needs to find a reason to keep living. By calling 996 you'll be connected to a skilled, trained counselor at a crisis center in your area. INPATIENT DISCHARGE INSTRUCTIONS SIGNATURE PAGE DIA BERNARD Location:[facility] Registration Date and Time:08/28/2022 05:26 EDT Primary Care Physician: Not on Staff, PCP Attending Physician: Shelli JORDAN, Chad Palma, I DIA BERNARD, have received the above patient education materials/instructions and have verbalized understanding. If ambulance or transport services are being used I further acknowledge being given a choice of service. ?? If you need to contact me, please call me at this number: . Patient/Monument Stonecutter Name: Patient/Monument Stonecutter Signature: Relationship to Patient: Witness Name/Signature: Date: * Quang Mayberry NP: PERFORM Event Display: Patient Education Leaflets Authored Date: [id number] How to Quit Smoking ?? [id number] How to Quit Smoking Smoking is a hard habit to break. About half of all??people who've ever smoked have been able to quit. Most people??who still smoke want to quit. Here are some of the best ways to stop smoking. Keep in mind how quitting can help your health The health benefits of quitting start right away. They keep improving the longer you go without smoking. Knowing this can help inspire you to stay on track. These benefits occur at any age. Quitting is a good choice whether you are 17 or 70. Some of the health benefits after your last cigarette include: ??? After 20 minutes: Your blood pressure and pulse return to normal. ??? After 8 hours: Your oxygen levels return to normal. ??? After 2 days: Your ability to smell and taste start to get better as damaged nerves regrow. ??? After 2 to 3 weeks: Your circulation and lung function get better. ??? After 1 to 9 months: You have less coughing, congestion, and shortness of breath. You feel less tired. ??? After 1 year: Your risk of heart attack goes down by 50%. ??? After 5 years: Your risk of lung cancer goes down by 50%. Your risk of stroke becomes the same as a nonsmoker???s. ?? What about going cold turkey? You may have heard about quitting cold turkey. This means stopping all at once. Going cold turkeyis an option. But it's not the most successful way to quit smoking. Trying to cut back slowly oftendoesn't work as well either. This may be because it continues the habit of smoking. You may also inhale more smoke while smoking fewer cigarettes. This leads to the same amount of nicotine in your body. But quitting cold turkey or cutting back slowly aren't your only choices. Using tobacco cessation medicines with behavioral counseling may be a better choice to help you succeed. Talk with your provider about your choices for support while you quit smoking. ?? Get support Support programs can be a big help, especially for heavy smokers. These groups offer information, ways to change behavior, and peer support. Ask your provider for some resources. Here are some other ways to find support: ??? Smokefree.gov at www.smokefree.gov or 241-EQJV-ROE (412-093-4644) ??? [place] Lung Associationat www.lung.org/quit-smoking or 936-843-8627 ??? [place] [employer] at www.cancer.org/quitsmoking or 396-535-7136 Support at home is important too. Family and friends can offer praise and reassurance. Ask your friends who smoke to support your decision. Try to stay away from situations that trigger the desire tosmoke. This may include smoking with your morning coffee. Or smoking after a meal. Create new routines to help decrease your cravings. If the smoker in your life finds it hard to quit, encourage them to keep trying. Remind them of allof the benefits to themselves and people they love. ?? Try gesk-qfb-wcypdii nicotine replacements Nicotine replacement therapy??may make it??easier to quit. You can buy some aids without a prescription. These include a nicotine patch, gum, and lozenges. But it's best to use these under the care of your healthcare provider. The skin patch gives a steady supply of nicotine. Nicotine gum and lozenges give??short- time doses of low levels of nicotine. Both methods reduce the craving for cigarettes. If you??have upset stomach (nausea), vomiting, dizziness, weakness, or a fast heartbeat, stop using these products and see your provider. ?? Ask about prescription medicine After reviewing??your smoking patterns and past attempts to quit, your provider may offer a prescription medicine. These include bupropion, varenicline, a nicotine inhaler, or nasal spray. Each has advantages and side effects. Your provider can go over these with you. ?? Keep trying Most smokers try to quit many times before they succeed. It???s important not to give up. ?? Last Reviewed Date: 2022 ?? [employer]. All rights reserved. This information is not intended as a substitute for professional medical care. Always follow your healthcare professional's instructions. ?? * Shawanda JACOBSON, Quang Abreu: PERFORM Event Display: Patient Education Leaflets Authored Date: [id number] Apixaban Oral Tablet ?? [address] Apixaban Oral Tablet Brands: Pix[employer]ly Uses This medicine is used for the following purposes: ??? blood disorder ??? prevent blood clots ??? treatment of blood clots ??? blood clot ?? Instructions This medicine may be taken with or without food. This medicine will work best if you take it at about the same time every day. Store at room temperature away from heat, light, and moisture. Do not keep in the bathroom. It is important that you keep taking each dose of this medicine on time even if you are feeling well. If you forget to take a dose on time, take it as soon as you remember. If it is almost time for thenext dose, do not take the missed dose. Return to your normal schedule. Do not take 2 doses at one time. Drug interactions can change how medicines work or increase risk for side effects. Tell your healthcare providers about all medicines taken. Include prescription and xlud-ocx-sbsdryh medicines, vitamins, and herbal medicines. Speak with your doctor or pharmacist before starting or stopping any medicine. Talk to your doctor before taking other medicines, including aspirins and ibuprofen containing products. Speak to your doctor about which medicines are safe to use while you are on this medicine. It is very important that you follow your doctor's instructions for all blood tests. ?? Cautions This medicine may cause serious bleeding problems in patients taking blood thinner medications. Follow your doctor's instructions carefully to monitor your blood lab tests if you are on blood thinners. Tell your doctor and pharmacist if you ever had an allergic reaction to a medicine. This medicine may cause serious bleeding from the stomach or bowels. Stop this medicine and call your doctor immediately if you see any signs of bleeding. Bleeding can cause pain in the stomach, vomiting up liquid that looks like coffee grounds, and red or dark tarry stools. There is an increased risk of bleeding while on this medicine, please tell your doctor or nurse if you notice any excessive bleeding or bruising. Do not use the medication any more than instructed. Please check with your doctor before drinking alcohol while on this medicine. Do not breastfeed while on this medicine. This medicine can hurt a new baby in the womb. If you become while on this medicine, tell your doctor immediately. Your doctor may switch you to a different medicine. Do not take Yutan's wort while on this medicine. Do not share this medicine with anyone who has not been prescribed this medicine. Some patients have serious side effects from this medicine. Ask your pharmacist to show you the information from the Food and Drug Administration (FDA) and discuss it with you. Always refill this medicine before it runs out. ?? Side Effects The following is a list of some common side effects from this medicine. Please speak with your doctor about what you should do if you experience these or other side effects. ??? nosebleeds Call your doctor or get medical help right away if you notice any of these more serious side effects: ??? bleeding or bruising ??? coughing up blood or vomit that looks like coffee grounds ??? fainting??? numbness or tingling in hands and feet ??? severe or persistent headache ??? sudden leg pain, swelling, warmth or redness ??? loss of movement anywhere on the body ??? shortness of breath ??? bloody or dark, tarry stools ??? symptoms of stroke (such as one-sided weakness, slurred speech, confusion) ??? difficulty swallowing ??? unusual or unexplained tiredness or weakness ??? blood in urine ??? blurring or changes of vision A few people may have an allergic reaction to this medicine. Symptoms can include difficulty breathing, skin rash, itching, swelling, or severe dizziness. If you notice any of these symptoms, seek medical help quickly. ?? Extra Please speak with your doctor, nurse, or pharmacist if you have any questions about this medicine. ?? [email or web address] IMPORTANT NOTE: This document tells you briefly how to take your medicine, but it does not tell youall there is to know about it. Your doctor or pharmacist may give you other documents about your medicine. Please talk to them if you have any questions. Always follow their advice. There is a more complete description of this medicine available in [place]. Scan this code on your smartphone or tablet or use the web address below. You can also ask your pharmacist for a printout. If you have any questions, please ask your pharmacist. The display and use of this drug information is subject to Terms of Use. Copyright(c) 2022 [employer]. ?? [employer]. All rights reserved. This information is not intended as a substitute for professional medical care. Always follow your healthcare professional's instructions. ?? * Shawanda JACOBSON, Quang Abreu: PERFORM Event Display: Patient Education Leaflets Authored Date: [id number] Cardiac Surgery Nutrition ?? 652 Heart Healthy Eating to Prepare For and Recover From Cardiac Surgery ? Good nutrition is vital in helping you heal following surgery. Research shows that good nutrition promotes healing for a quicker recovery. ?? Focus on a well- balanced, high protein and low sodium diet that includes whole grains, fruits, and vegetables. ?? Follow these diet guidelines until your follow up appointment with your cardiac surgeon. ?? Prioritizing Protein Rich Foods: ?? Aim to eat between 80-110 grams of protein daily. ?? Have protein rich foods with every meal. If you do not have a good appetite, have a protein-containing supplement 1-2 times a day between meals. ??Be sure to choose lean meats and poultry that are low in fat.??Fish is a good source of protein and cold water fish such as salmon is high in omega-3 fatty acids. ??When cooking, choose to bake, broil, roast, or grill. ??Avoid processed meats, such as alonso, sausage, ham, pepperoni, hot dogs, cold cuts and canned meats.??Avoid using any salt or salt-containing seasoning blends while cooking or once food is served at the table.?Protein Rich Foods:??Meat, Poultry, Eggs Food Serving Size Protein (grams) Chicken, skinless (white meat)?? 3oz 25 Beef (loin, round, extra lean hamburger) 3oz 26 [place], skinless (white meat) 3oz 26 Ground sirloin 3oz 23 Lindsey 3oz 23 Pork 3oz 22 Egg, large 1 egg 6 ?Seafood Food Serving Size Protein (grams) [place] 3oz 19 Tuna (packed in water) 3oz (1/2 - 6oz can) 20 Fish (ana, flounder, cod) 3oz 20 ?Dairy Products and Dairy Substitutes Food Serving Size Protein (grams) Uzbek Yogurt 5-7oz 12 to 18 Milk (Skim, 1%, Simply Smart) 8oz 8 Soy Milk, Plain 8oz 8 Fairlife Milk 8oz 13 Cheese, Low Sodium, Low Fat ([place], fresh mozzarella) 1oz 7 ?Legumes, Nuts Food Serving Size Protein (grams) Beans (low sodium canned or dried) 1/2 cup 6-11 Nuts (unsalted) 1oz 4-7 Peanut Butter 2 Tbsp 8 ?Ready to Drink Protein Shakes: ?? Calories Protein (grams) Sugar (grams) Ensure High Protein 160 16 4 Glucerna 180 10 4 [place] Breakfast EssentialsLight Start 150 13 3 Muscle Milk 100 Calorie 100 20 0 Premier Protein 160 30 1 ?Whey Protein Powders: ?? Calories Protein (grams) Sugar (grams) Pure Protein (1 scoop) 160 25 2-3 Julio's Whey Protein (2 scoops) 110 21 2-3 Nestle Beneprotein? (2 scoops) 50 12 0 ?Protein Bars: ?? Calories Protein (grams) Sugar (grams) Zone Perfect Nutrition Bars (lower potassium, lower phosphorous option) 200 14 10-15 Oatmega Protein Bars [address] [facility] Protein Bars 190 10 6-7 ?If you have diabetes, choose lower sugar/ lower carbohydrate nutrition shakes to keep your blood sugars in good control before and after surgery.?Whole GrainsAim to have 3-6 servings a day of whole grain foods. If available, choose options labeled as ???Low Sodium?? , and choose to cook and/or serve without adding salt.??- 100% Whole Grain breads and/ or pitas?- Whole Grain Cereals?? - Whole Grain Pastas?- Whole Wheat Flour - Oatmeal?- Whole Grain Crackers - [place] and/or Whole Wheat Tortillas?- Bu lgur (cracked wheat)- Quinoa?- Barley- Millet?- Brown and/or Wild Rice?Fruits and Vegetables:Aim to have a fruit and vegetable with every meal. They make great snacks between meals as well.??- Fresh, seasonal fruits and vegetables- Frozen fruits and vegetables (without added sauces or syrups)- Canned fruit packed in water or own juice- Low Sodium canned vegetables- Dried fruit (keep portions small, such as half a handful)?Foods High in Heart Healthy Fats:- Seeds and nuts (unsalted)- Avocado? - [place], canola,peanut, soy, or sunflower oils- Soft tub or liquid margarines and vegetable oil spreads without trans fat- Salad dressings made with heart healthy oils?Reducing Sodium:A low sodium diet contains 2000 milligrams (mg) of sodium or less per day.Salt and preservatives in processed foods are the main source of sodium. A single teaspoon of salt has 2300mg of sodium.? Select foods with 140 mg of sodium or less per serving ??? Foods with more than 300 mg of sodium per serving may not fit into a low sodium diet plan ??? Avoiding processed foods and choosing more fresh foods is a simple way to reduce sodium. Fresh fruits, vegetables, and meats are naturally low sodium. ?Salt-Free?? or ???Sodium Free?? items have lessthan 5mg of sodium per serving ?Very low-sodium?? items have less than 35mg of sodium per ser ving. ?Low- sodium?? items contain less than 140mg of sodium per serving ??? Be cautious with items labeled ???Unsalted?? or ???No Added Salt?? , as they may still be high in sodium, check the food label. ? Avoid Added Sugars:Foods with added sugars add calories, but not essential nutrients.??Avoid the following beverages and foods: ??? Regular sodas, fruit punch drinks, sports drinks, and energy drinks??? Candy ??? Cakes, cookies, brownies ??? Pastries, doughnuts, Danishes, and sweet rolls ??? Pies and cobblers ??? Ice creams and sherbets ??? Table sugar ?If you have nutrition questions when you are in the hospital, please ask to see the dietitian or dietetic technici ? * Serina Platt RN: VERIFY, PERFORM, SIGN Event Display: Cardiac Rehab Note Authored Date: Patient: DIA BERNARD Age: 77 years Sex: Female : 1945 Associated Diagnoses: None Author: Serina Platt RN Recommendation and Plan Cardiac Rehab: Attended CV surgery rounds. See CV surgery note for plan of care.. * Serina Platt RN: PERFORM, SIGN, VERIFY Event Display: Cardiac Rehab Note Authored Date: Patient: DIA BERNARD Age: 77 years Sex: Female : 1945 Associated Diagnoses: None Author: Serina Platt RN Pre-exercise Vitals Vital Signs Comment: Reviewed in [facility]. Pre-exercise Physical Examination Neurologic: alert & oriented. Activity Ambulate: Patient is PT appropriate at this time. Requires 2-3assist to get OOB to chair.. Patient Education Education: Patient alone, Written material included, Cardiac surgery booklet reviewed. Education topic Teachback comprehension 50% Topic: Role of exercise, Post operative recovery guidelines. Recommendation and Plan Outpatient follow up recommended: [facility]. Cardiac Rehab: Will sign off at this time. Recommendation comment: RN notified of plan. * Serina Platt RN: PERFORM, SIGN, VERIFY Event Display: Patient Education Handout Authored Date: [id number] * Event Display: Hemodynamic Procedure Report Authored Date: * Event Display: Adult Preadmission Health Questionnaire Authored Date: Cardiac catheterization study * Event Display: Cardiac Benefits Consulting Analyst Report Authored Date: * Event Display: Cardiac Benefits Consulting Analyst Report Authored Date: Cardiac & Peripheral Diagnostic Report Demographics Patient Name JOANA REINA Gender Female [employer] Room Number M311 Height 65 inches Date of 1945 Weight 180 pounds Age 77 year(s) BSA 1.89 m2 Accession Number [id number] BMI 29.95 kg/m2 Referring Physician Chad Marques MD Date of Study 08/31/2022 Jose David Wen MD Performing Physician Sandee Hopper Fellow Behzad Greenberg Interventional Physician Procedure Procedure Type Diagnostic procedure:Coronary Angiography, LHC & Grafts Peripheral Cath Diagnostic Procedure:Arteriography Miscellaneous:ULTRASOUND GUIDANCE ACC Diagnostic Catheterization Status:Emergency Indications Indications: Cardiogenic shock. Clinical History Clinical Evaluation Leading to Procedure - There were no CAD presentation symptoms. - The patient was diagnosed with a heart failure condition. Heart failure type: Systolic. - The patient's heart failure status was assessed as NYHA Class III - The reason for the patient's laboratory inspector visit is evaluation of cardiomyopathy and/or evaluation of left ventricular systolic dysfunction. ACC Risk Factors The patient risk factors include:prior CABG;obesity, cerebrovascular disease, treated and controlled hypercholesterolemia, treated and controlled hypertension, last creatinine: 0.8 mg/dl, creatinine clearance: 78.32 ml/min, dyslipidemia and Current - Every day tobacco use. Additional Clinical History:77 F active smoker with PMH significant for HTN, HLD, CVA S/P CEA had dyspepsia and underwent cath which showed MVCAD and underwent CABGx3 (MERCER to LAD, rad to diagonal, and SVG to RCA). Post operatively pt went into respiratory failure with shock requiring pressor and was intubated. She had afib with RVR requiring 4 shocks for cardioversion. Pt is referred to [facility] for evaluation of her graft. Procedure Data Procedure Date Date: 08/31/2022Start: 14:19End: 16:34 The procedure was explained in detail to the patient. Risks, complications and alternative treatments were reviewed. Written consent was obtained. Entry Locations - The Right Femoral artery access attempt was not successful. Hemostasis was successfully obtained using Manual Compression. - Retrograde Percutaneous access was performed through the Left Femoral artery. A 4 Fr sheath was inserted. This was exchanged for a 6 Fr sheath. Hemostasis was successfully obtained using Manual Compression. Arterial cross over. Procedure Medications - Lidocaine 2% S.C. Right groin 10 ml. Sedation: No intra-service moderate sedation was used for this case. Contrast Material - Omnipaque 50 ml Diagnostic Catheters - A6F JL 4.0 DxTERITY DIAGNOSTIC CATHETERwas used for: Left coronary angiography. - A6F JR 4.0 DxTERITY DIAGNOSTIC CATHETERwas used for: Right coronary angiography. - A6F JR 4.0 DxTERITY DIAGNOSTIC CATHETERwas used for: selective bypass graft angiography. Comments: Radial graft to OM. - A6F JR 4.0 DxTERITY DIAGNOSTIC CATHETERwas used for: selective bypass graft angiography. Comments: SVG to RCA. - A6F JR 4.0 DxTERITY DIAGNOSTIC CATHETERwas used for: selective bypass graft angiography. Comments: Radial graft to OM1. - A6F JH DxTERITY DIAGNOSTIC CATHETERwas used for: selective bypass graft angiography. Comments: MERCER to LAD. - A6F JR 4.0 DxTERITY DIAGNOSTIC CATHETERwas advancedto theSubclavian, Leftandwas used for: pressure measurement. Comments: Subclavian pullback. - A6F JR 4.0 DxTERITY DIAGNOSTIC CATHETERwas advancedto theSubclavian, Leftandwas used for: non-selective angiography. Comments: Subclavian . Fluoroscopy Time: Diagnostic: 19:21 minutes. Total: 19:21 minutes. Fluoroscopy Dose: Diagnostic: 752 mGy. Total: 752 mGy. Dose Area Product:Diagnostic: 93375 mGy/cm2. Total: 50141 mGy/cm2. Dose Area Product:Diagnostic: 8420 ??Gy/m2. Total: 8420 ??Gy/m2. Procedure Narrative Timeout was performed prior to the procedure. Ultrasound-guided right common femoral arterial access was obtained. Right common femoral arterial showed heavily calcified right common femoral artery with angiogram occluded right SFA. 0.035 J-wire and versa core wire could not be advanced past the right common iliac. Micropuncture catheter was removed and manual compression was performed with adequate hemostasis. Patient had a left femoral arterial line. This was removed and hemostasis was achieved using manual compression. Ultrasound guided left common femoral arterial access was obtained. Left femoral artery angiogram showed a heavily calcified left common femoral artery and the totally occluded left SFA with a patent profunda. A versa core wire was able to advance past the common iliac artery. A 55 cm 6 Mexican sheath was advanced across the left common femoral artery. Selective left coronary angiography was performed using a 6 Mexican JL 4 catheter. Selective right coronary angiography was performed using a 6 [place] JR4 catheter. Selective SVG to RPDA angiography was performed using a 6 [place] JR4 catheter. Selective angiography of the left radial graft to first diagonal was performed using a 6 [place] JR4 catheter. Selective MERCER angiography was performed using a 6 Mexican HJ catheter. There was a 20 mm subclavian to aorta gradient on pullback. Subclavian angiography showed moderate diffuse subclavian stenosis proximal to the MERCER origin. Left heart catheterization was performed using a 6 [place] JR4 catheter. Right radial arterial line was placed and the pressure was compared to the central aortic pressure from the femoral sheath and they were comparable with less than 10 mmHg systolic difference between the two. This was sutured and secured in site. ETT tube was low and respiratory therapist adjusted the position and that was verified using fluoroscopy. Angiographic Findings Cardiac Arteries and Lesion Findings LAD: Lesion in Prox LAD: 90% stenosis .The lesion was heavily calcified. Lesion in Mid LAD: 90% stenosis .The lesion was heavily calcified. Lesion in Dist LAD: 90% stenosis .The lesion was heavily calcified. Lesion in 1st Dia% stenosis . Lesion in 2nd Dia% stenosis . RCA: Lesion in Prox RCA: Ostial.100% stenosis . Peripheral Arteries and Lesion Findings Subclavian, Left: Lesion in Proximal: Proximal subsection.60% stenosis 30 mm length.The lesion was diffuse.Culprit lesion. Cardiac Grafts - There is a Vein graft that originates at the Aorta Right and attaches to the Dist RCA (PATENT). - There is a Radial graft that originates at the Aorta Left and attaches to the 1st Diag (PATENT). - There is a MERCER graft that originates at the MERCER and attaches to the Mid LAD (PATENT). Hemodynamics Condition: Rest O2 Consumption: Estimated: 174.90Heart Rate: 74 bpm Pressures (mmHg) + + + !Site !Pressure ! + + + !FA !114/57 (79)! + + + !AO !148/62 (91)! + + + !AO !157/62 (94)! + + + !LV !162/16 ,33 ! + + + !AO !151/59 (91)! + + + !LV !162/16 ,34 ! + + + !AO !151/60 (91)! + + + !L Subclavian!136/57 (84)! + + + !L Subclavian!126/60 (82)! + + + !L Subclavian!144/56 (87)! + + + !FA !146/48 (78)! + + + !L Subclavian!139/56 (85)! + + + Valve Gradients and Areas +------+----+----+----+-----+----+------+ !Valve !Peak!Mean!Area!Index!Flow!Source! +------+----+----+----+-----+----+------+ !Aortic!11 !20 ! ! ! ! ! +------+----+----+----+-----+----+------+ !Aortic!11 !20 ! ! ! ! ! +------+----+----+----+-----+----+------+ Shunts Oxygen Values O2 Consumption 174.9 Interventional Procedure Conclusions Peripheral Procedure Description Coronary angiogram showed: 1. Heavily calcified vessels. 2. Co-dominant circulation. 3. Left main severely calcified with no significant disease. 4. LAD is heavily calcified. There is 95% calcific stenosis of the proximal LAD at the bifurcation of D1. There are sequential 95% calcific mid LAD stenoses. There is 90% calcific distal apical LAD stenosis distal to the MERCER touchdown. D1 is a moderate size vessel and is heavily calcified and has tandem 90% stenoses at the ostium and the proximal segment. D2 is small size vessel and has a 90% stenosis at the ostium. MERCER to LAD and left radial to D1 are patent. 5. LCx is a large size vessel. There is 30% ostial LCx stenosis. There is 50-60% proximal LCx stenosis. 6. RCA is 100% occluded proximally with L-R collaterals. SVG to RPDA is patent. 7. LVEDP is 33 mmHg, LV-Ao peak to peak gradient of 11 mmHg, mean gradient of 20 mmHg. Subclavian angiogram showed moderate diffuse proximal subclavian stenosis with a Ao-subclavian gradient of > 20 mmHg. Conclusion: 1. Severe [place] coronary artery disease with patent MERCER to LAD, SVG-RPDA, left radial to diagonal. 2. Elevated left sided filling pressures. 3. Moderate diffuse proximal subclavian stenosis with a 20 mmHg gradient. 4. Severe peripheral arterial disease with occluded right iliac and bilateral SFAs. Diagnostic Summary Her BP is likely to have been falsely underestimated as there was a discrepancy between the femoral arterial line pressure and the central aortic pressure in the setting of severe peripheral arterial disease. The patient's central aortic pressure has been high though out the case with a systolic > 150 mmHg. The use of vasopressors and fluid to treat suspected shock based on false low BP may be causing her decompensation in addition to the stunning effect of multiple cardioversions for atrial fibrillation. The subclavian stenosis is diffuse and although the gradient was > 20 mmHg, her antegrade flow through the MERCER was robust resulting in competitive flow through the [place] LAD. There is also risk of dissecting the subclavian artery and jeopardizing the MERCER flow as the MERCER origin is very close to the disease. Due to the above factors we decided the best treatment plan is continuing supportive management with close follow up in the CCU. The new radial arterial line is a more accurate representation of her real aortic pressures and by the end of the case we had already decreased her levophed dose from 0.3 to 0.2 mcg/kg/min and she was still hypertensive. Signatures * Event Display: Cardiac Benefits Consulting Analyst Report Authored Date: [id number] Laboratory * Rodrigo Pope DO: REVIEW Event Display: Cytology Reports General Authored Date: [id number] Patient Name: DIA BERNARD Patient : 1945 (Age: 77) Lab Collection Date: 09/04/2022 Accession Date: 09/05/2022 Sign Out Date: 09/07/2022 Tissue Source: 1: PLEURAL FLUID, RIGHT: Final Diagnosis: PLEURAL FLUID, RIGHT: NEGATIVE FOR MALIGNANT CELLS. The cell block confirms the above findings. Clinical History: Date of Last Menstrual Period: not available Menstrual History: not available Contraceptive History: not available Ancillary Testing: not available Clinical History (other): Right pleural effusion Gross Description: Received 5cc of bright red, opaque fluid 1 ThinPrep cellular enhancement technique Cell block 09/05/2022 Primary Pathologist: Daja Ordoñez M.D. Phone #: [phone], On-Call Pathologist: [id number] * Event Display: Serological Investigation Report Authored Date: [id number] Patient Name: DIA BERNARD Lab Patient : 1945 (Age: 77) Collection Date: 08/31/2022 Accession Date: 08/31/2022 Sign Out Date: 09/14/2022 Tissue Source: 1:TMS Direct Antiglobulin Test Final Diagnosis: SEROLOGICAL INVESTIGATION/CONSULTATION REPORT REASON FOR REPORT: Results from Direct Antiglobulin Testing Clinical Data: Diagnosis: Three-vessel coronary artery disease, aortic valve stenosis Previous History: Serological Testing Problems: No known serological testing problems at [facility]. Transfusion History: One red cell unit transfusion on 08/30/2022 LABORATORY INVESTIGATION RED CELL STUDIES DIRECT ANTIGLOBULIN TEST: Anti-IgG and Lozk-F8a-[id number] antisera ASSESSMENT: Antibody or complement binding to the red blood cells is undetectable using conventional antiglobulin testing. Absence of immunoglobulin or complement binding to the red blood cell membrane usually implies non-immune causes for the anemia. Clinical correlation and pertinent additional laboratory testing are advised. It should be noted that a subset of patients with immune mediated hemolysis, however, can have a negative direct antiglobulin test (i.e., Valerio??? Negative Autoimmune Hemolytic Anemia). RECOMMENDATIONS: Continued hemolysis of unknown etiology, or suspicion of enhanced immune mediated red blood cells clearance are indications for repeat and/or more sensitive immunoserologic investigations. For a further discussion of this report, please contact the Transfusion Medicine Service at [phone]. Primary Pathologist:LALY GARZA M.D. electronically signed out by: LALY GARZA M.D. / Phone #: [phone], On-Call Pathologist: [id number] History and physical note * Event Display: History and Physical Hospital Authored Date: EKG study * Event Display: EKG Authored Date: * Event Display: ECG 12-Lead Authored Date: Please click on pdf link to open report * Event Display: ECG 12-Lead Authored Date: Ventricular Rate: 71 BPM Atrial Rate: 71 BPM P-R Interval: 204 ms QRS Duration: 136 ms Q-T Interval: 388 ms QTC Calculation(Bazett): 421 ms P [place]: 27 degrees R [place]: -6 degrees T [place]: 192 degrees Normal sinus rhythm Left bundle branch block Abnormal ECG When compared with ECG of 06-SEP-2022 15:54, No significant change was found Confirmed by SONALI PRATT ([id number]) on 09/15/2022 11:24:59 AM [place]: SONALI PRATT * Event Display: ECG 12-Lead Authored Date: Please click on pdf link to open report * Event Display: ECG 12-Lead Authored Date: Ventricular Rate: 63 BPM Atrial Rate: 63 BPM P-R Interval: 224 ms QRS Duration: 132 ms Q-T Interval: 414 ms QTC Calculation(Bazett): 423 ms P [place]: 25 degrees R [place]: 12 degrees T [place]: 187 degrees Sinus rhythm with 1st degree A-V block Left bundle branch block Abnormal ECG When compared with ECG of 03-SEP-2022 02:08, Sinus rhythm has replaced Atrial fibrillation Vent. rate has decreased BY 100 BPM Nonspecific T wave abnormality now evident in Anterior leads Confirmed by DAVID RICO MD ([id number]) on 09/14/2022 9:13:35 AM [place]: DAVID RICO MD * Event Display: ECG 12-Lead Authored Date: [id number] Please click on pdf link to open report * Event Display: ECG 12-Lead Authored Date: [id number] Ventricular Rate: 163 BPM QRS Duration: 138 ms Q-T Interval: 266 ms QTC Calculation(Bazett): 438 ms R [place]: 3 degrees T [place]: 208 degrees Atrial fibrillation with rapid ventricular response Left bundle branch block Abnormal ECG When compared with ECG of 01-SEP-2022 13:40, MANUAL COMPARISON REQUIRED, DATA IS UNCONFIRMED Confirmed by LAMIN COWART MD ([id number]) on 09/05/2022 9:59:58 AM [place]: LAMIN COWART MD US Heart * Event Display: Echocardiogram - Complete Authored Date: [id number] Transthoracic Echocardiography Report (TTE) Patient Demographics Patient Name DIA BERNARD Date of Study 09/03/2022 Corporate Gender Female Facility Race Ethnicity Date of 1945 Height: 65 inches Age 77 year(s) Weight: 180 pounds Accession Number [id number] BSA: 1.89 m2 Room Number [id number] BMI: 29.95 kg/m2 Referring Physician Nelson Valverde NP Physician Pipeline Systems Operator Jessie Abel [facility] Indications Heart failure. Clinical History Coronary artery disease. Previous aortic valve replacement (19mm Inspiris pericardial valve) 08/28/2022 Previous CABGx3- 08/28/2022 COPD. Tobacco use. Obesity. Hypertension. Diabetes Mellitus. Hypercholesterolemia. Dyslipidemia. CVA PVD s/p carotid endarterectomy 2020 PAD Study Data Type of Study TTE procedure:Echo Complete-(Doppler, Colorflow) with Contrast. Procedure Information:Definity was administered by RN . Study Date09/03/2022 Start Time: 06:23 AM [place] [facility] [place] Status: ICU/CCU Patient Status: Routine Technical Quality: Technically difficult due to patient on ventilator. Blood Pressure:103/46 mmHg EKG: Atrial fibrillation HR: 121 bpm Contrast Medium: Definity. Amount - 2 ml 2D Measurements LV Diastolic Dimension: 3.5 cm LV Systolic Dimension: 2.8 cm LV Septum Diastolic: 1.6 cm LV PW Diastolic: 1.4 cm LA Dimension: 3.9 cm LVOT Stroke Volume: 26.12 ml LVOT: 1.6 cm Stroke Volume Index13.82 ml/m2 Cardiac Index:1.67 l/min/m2 Doppler Measurements AV Peak Velocity: 190 cm/s MV Peak E-Wave: 106 cm/s AV Peak Gradient: 14.44 mmHg AV Mean Gradient: 9 mmHg MV P1/2t: 66 msec AV VTI:22.7 cm MV Mean Gradient: 4 mmHg LVOT Peak Velocity: 89.2 cm/s MV Area (continuity): 2.11 cm2 LVOT VTI13 cm MV Deceleration Time: 227 msec AV Area (Continuity):1.15 cm2 MV Area (PHT): 3.33 cm2 TR Velocity:245 cm/s PV Peak Velocity: 98.4 cm/s TR Gradient:24.01 mmHg PV Peak Gradient: 3.87 mmHg E' Septal Velocity: 0 cm/s E/Med E':0 Cardiac Anatomy Left Ventricle/Interventricular Septum The left ventricle is poorly visualized but LV endocardial border is seen w LV contrast imaging. The left ventricular size is normal. The left ventricular wall thickness is mildly to moderately increased. The LV systolic function is moderately to severely reduced . The left ventricular ejection fraction is 25-30%. The mid to distal anteroseptal, inferoseptal, apical wall is akinetic . There is no evidence of left ventricular thrombus. Unable to assess diastolic function due to atrial fibrillation . Left Atrium/Interatrial Septum The left atrium is severely dilated. Aortic Valve There is a bioprosthetic valve in the aortic position. The aortic valve is is poorly visualized. The gradient is normal for this valve type. There is no aortic regurgitation. Mitral Valve There is mild mitral annular calcification. The mitral valve opening is normal. There is mild mitral regurgitation. Aorta The aorta is not visualized. Right Ventricle The right ventricle is poorly visualized. The right ventricle is normal in size. Right ventricular systolic function is moderately reduced. Right Atrium The right atrium is poorly visualized. Pulmonic Valve The pulmonic valve is poorly visualized. Tricuspid Valve The tricuspid valve is poorly visualized. There is trace tricuspid valve regurgitation. Pumonary Artery The pulmonary artery systolic pressure estimation is 24 mmHg + CVP. Venous Structures The inferior vena cava is not visualized. Pericardium/Extracardiac There is no significant pericardial effusion. Summary The left ventricle is poorly visualized but LV endocardial border is seen w LV contrast imaging. The left ventricular size is normal. The left ventricular wall thickness is mildly to moderately increased. The LV systolic function is moderately to severely reduced . The left ventricular ejection fraction is 25-30%. The mid to distal anteroseptal, inferoseptal, apical wall is akinetic . There is no evidence of left ventricular thrombus. Unable to assess diastolic function due to atrial fibrillation . The right ventricle is poorly visualized. The right ventricle is normal in size. Right ventricular systolic function is moderately reduced. There is a bioprosthetic valve in the aortic position. The aortic valve is is poorly visualized. The gradient is normal for this valve type. There is no aortic regurgitation. The pulmonary artery systolic pressure estimation is 24 mmHg + CVP. Comparison Comparison is made to the study of August 31, 2022. Pt is in rapid afib with otherwise unchanged LV function and valve gradients. Signature * Event Display: Echocardiogram - Complete Authored Date: [id number] * Event Display: Echocardiogram - Complete Authored Date: [id number] Transthoracic Echocardiography Report (TTE) Patient Demographics Patient Name DIA BERNARD Date of Study 08/31/2022 Corporate Gender Female Facility Race Ethnicity Date of 1945 Height: 65 inches Age 77 year(s) Weight: 180 pounds Accession Number [id number] BSA: 1.89 m2 Room Number M311 BMI: 29.95 kg/m2 Referring Physician Ezekiel Garcia NP Physician Pipeline Systems Operator Jessie Abel [facility] Indications Arrhythmia. Clinical History Coronary artery disease. Previous aortic valve replacement (19mm Inspiris pericardial valve) 08/28/2022 Previous CABGx3- 08/28/2022 COPD. Tobacco use. Obesity. Hypertension. Diabetes Mellitus. Hypercholesterolemia. Dyslipidemia. CVA PVD s/p carotid endarterectomy 2019 PAD Study Data Type of Study TTE procedure:Echo Complete-(Doppler, Colorflow) with Contrast. Procedure Information:Definity was administered by RN . Study Date08/31/2022 Start Time: 09:36 AM Study [place] [facility] [place] Status: ICU/CCU Patient Status: STAT Technical Quality: Technically difficult due to patient on ventilator. Blood Pressure:75/45 mmHg EKG: Sinus with ectopy HR: 76 bpm Contrast Medium: Definity. Amount - 2 ml 2D Measurements LV Diastolic Dimension: 4 cm LV Septum Diastolic: 1.25 cm LA ESV (BP):97.51 ml LA ESV Index: 52 ml/m2 LVOT Stroke Volume: 54.17 ml LVOT: 1.8 cm Stroke Volume Index28.66 ml/m2 Cardiac Index:2.18 l/min/m2 Doppler Measurements AV Peak Velocity: 297 cm/s MV Peak E-Wave: 123 cm/s AV Peak Gradient: 35.28 mmHg MV Peak A-Wave: 92.5 cm/s AV Mean Gradient: 17.72 mmHg MV E/A Ratio: 1.33 AV VTI:48.3 cm MV P1/2t: 57 msec LVOT Peak Velocity: 105 cm/s LVOT VTI21.3 cm MV Deceleration Time: 195 msec AV Area (Continuity):1.12 cm2 MV Area (PHT): 3.86 cm2 TR Velocity:230 cm/s TR Gradient:21.16 mmHg E' Septal Velocity: 5 cm/s E' Lateral Velocity: 5.77 cm/s E/Med E':24.6 E/Lat E':21.01683 Cardiac Anatomy Left Ventricle/Interventricular Septum The left ventricle is poorly visualized but improved with contrast enhancement. The left ventricular size is normal. The left ventricular wall thickness is mildly increased. The LV systolic function is moderately to severely reduced . The left ventricular ejection fraction is 25-35%. The mid to distal anteroseptal, inferoseptal, apical wall is akinetic . There is no evidence of left ventricular thrombus. Grade II, moderate diastolic dysfunction with pseudonormal LV filling pattern and increased LA pressure. Left Atrium/Interatrial Septum The left atrium is severely dilated. Aortic Valve There is a bioprosthetic valve in the aortic position. The aortic valve is is poorly visualized. The gradient is normal for this valve type. There is no aortic regurgitation. Mitral Valve There is mild mitral annular calcification. The mitral valve opening is normal. There is mild mitral regurgitation. Aorta The aorta is not visualized. Right Ventricle The right ventricle is poorly visualized. The right ventricle is normal in size. Right ventricular systolic function is reduced. Right Atrium The right atrium is poorly visualized. Pulmonic Valve The pulmonic valve is poorly visualized. Tricuspid Valve The tricuspid valve is poorly visualized. There is trace tricuspid valve regurgitation. Pumonary Artery The pulmonary artery systolic pressure estimation is 21 mmHg plus right atrial pressure. Venous Structures The inferior vena cava is not visualized. Pericardium/Extracardiac There is no significant pericardial effusion. Summary The left ventricle is poorly visualized but improved with contrast enhancement. The left ventricular size is normal. The left ventricular wall thickness is mildly increased. The LV systolic function is moderately to severely reduced . The left ventricular ejection fraction is 25-35%. The mid to distal anteroseptal, inferoseptal, apical wall is akinetic . There is no evidence of left ventricular thrombus. Grade II, moderate diastolic dysfunction with pseudonormal LV filling pattern and increased LA pressure. The left atrium is severely dilated. There is a bioprosthetic valve in the aortic position. The aortic valve is is poorly visualized. The gradient is normal for this valve type. There is no aortic regurgitation. There is mild mitral annular calcification. The mitral valve opening is normal. There is mild mitral regurgitation. The right ventricle is poorly visualized. The right ventricle is normal in size. Right ventricular systolic function is reduced. Comparison Comparison is made to the external study of July 23, 2022. There is a bioprosthetic valve in the aortic position. Left ventricular systolic function is unchanged since previous study. Signature * Event Display: Echocardiogram - Complete Authored Date: [id number] Heart Transesophageal * Event Display: Trans-esophageal Echocardiogram Authored Date: [id number] Transesophageal Echocardiography Report (DARA) Patient Demographics Patient Name DIA BERNARD Date of Study 09/06/2022 Corporate Gender Female Facility Race Ethnicity Date of 1945 Height: 65 inches Age 77 year(s) Weight: 180 pounds Accession Number [id number] BSA: 1.89 m2 Room Number M311 BMI: 29.95 kg/m2 Referring Physician Tanner AYALA Interpreting Physician Dinesh Mejia MD Pipeline Systems Operator Tiffanie Parker [facility] Indications Atrial fibrillation. Study Data Type of Study DARA procedure:DARA with Doppler and Colorflow. Procedure Information:Procedure was done at the bedside in [facility] as patient was intubated and sedated. The procedure, including risks and benefits, was explained to the patient's daughter and informed consent was obtained. Time out was performed pre-procedure. The transesophageal probe was inserted without difficulty by the attending heading and priming tool setter. There were no complications. Study Date09/06/2022 Start Time: 03:11 PM [place] [facility] [place] Study Status: ICU/CCU Patient Status: Routine Technical Quality: Adequate Blood Pressure:104/53 mmHg EKG: Atrial fibrillation HR: 65 bpm DARA Performed By: Dinesh Mejia MD Type of Anesthesia: Moderate sedation Procedure Medications - Fentanyl I.V. 50 mcg. - Versed I.V. 2 mg. Cardiac Anatomy Left Ventricle/Interventricular Septum The LV systolic function appears moderately reduced. The left ventricular ejection fraction is 30-40%. There is hypokinesis of the distal inferoseptal and anteroseptal ralph as well as the apex. Left Atrium/Interatrial Septum The left atrium appears dilated. There is no thrombus in the left atrial appendage. Left atrial appendage function is normal. Aortic Valve There is a bioprosthetic valve in the aortic position. There was no significant prosthetic valve regurgitation. Mitral Valve The mitral valve appears mildly thickened. There is mild to moderate mitral regurgitation which is predominantly noted in early systole. Evaluation by PISA: EROA 0.15cm2, RVol 23 mL. Aorta There is mild plaque in the ascending aorta. Right Ventricle The right ventricular size and function appears grossly normal. A right heart catheter is seen in the right ventricle. Right Atrium The right atrium is dilated. Pulmonic Valve The pulmonic valve is poorly visualized. Tricuspid Valve The tricuspid valve is grossly normal. There is mild tricuspid valve regurgitation. Venous Structures There is systolic blunting of pulmonary venous flow. Pericardium/Extracardiac There is a trivial pericardial effusion. There is a large left-sided pleural effusion. Summary 1) The LV systolic function appears moderately reduced. The left ventricular ejection fraction is 30-40%. There is hypokinesis of the distal inferoseptal and anteroseptal ralph as well as the apex. 2) The right ventricular size and function appears grossly normal. A right heart catheter is seen in the right ventricle. 3) There is a bioprosthetic valve in the aortic position. There was no significant prosthetic valve regurgitation. 4) The left atrium appears dilated. There is no thrombus in the left atrial appendage. Left atrial appendage function is normal. 5) The mitral valve appears mildly thickened. There is mild to moderate mitral regurgitation which is predominantly noted in early systole. Recommendation Based on absence of thrombus in the atria, decision was made to proceed with planned cardioversion Comparison No prior study available for comparison. Signature * Event Display: Trans-esophageal Echocardiogram Authored Date: [id number] * Event Display: Trans-esophageal Echocardiogram Authored Date: [id number] Transesophageal Echocardiography Report (DARA) Patient Demographics Patient Name DIA BERNARD Date of Study 08/28/2022 Corporate Gender Female Facility Race Ethnicity Date of 1945 Height: 65 inches Age 77 year(s) Weight: 180 pounds Accession Number [id number] BSA: 1.89 m2 Room Number M31X BMI: 29.95 kg/m2 Referring Physician Chad Marques MD Interpreting Physician NIKKI West Pipeline Systems Operator Indications Aortic valve disease, non-rheumatic. Additional Indications:Cardiac mass Study Data Type of Study DARA procedure:DARA Image Acquisition and Interpretation, DARA Colorflow , DARA Doppler Follow-up or Limited, Strain. Study Date08/28/2022 Start Time: 08:49 AM Study [place] [facility] [place] Study Status: OR Patient Status: Routine Technical Quality: Adequate Blood Pressure:133/72 mmHg HR: 72 bpm DARA Performed By: Raymundo Kellogg MD Type of Anesthesia: General anesthesia 2D Measurements LVOT Stroke Volume: 87.29 ml LVOT: 2 cm Stroke Volume Index46.19 ml/m2 Cardiac Index:3.33 l/min/m2 Doppler Measurements AV Peak Velocity: 307 cm/s AV Peak Gradient: 37.7 mmHg AV Mean Gradient: 19 mmHg AV VTI:84.1 cm LVOT Peak Velocity: 97.6 cm/s LVOT VTI27.8 cm AV Area (Continuity):1.04 cm2 AV P1/2t: 667 msec Cardiac Anatomy Left Ventricle/Interventricular Septum Left ventricular systolic function is grossly normal. LVEF visually estimated at 55 to 60%. The apex and apical septum are hypokinetic. There is a 0.8 x 0.6 cm mobile mass originating from the basal anteroseptum and extending into the LVOT. There is no evidence of LVOT obstruction. Left Atrium/Interatrial Septum There is no thrombus in the left atrium or left atrial appendage. Aortic Valve The aortic valve is trileaflet. The aortic valve appears moderately calcified. There is moderate aortic stenosis (peak velocity 3.1 m/s, mean gradient 20 mmHg, aortic valve area 1.04 cm2 by continuity equation VTI). There is mild aortic regurgitation. 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 Mitral Valve The mitral valve is mildly thickened and calcified. There is no significant mitral stenosis or insufficiency. Right Ventricle The right ventricular size and function appear grossly normal. Pulmonic Valve The pulmonic valve is grossly normal. There is trace pulmonic regurgitation. Tricuspid Valve The tricuspid valve is grossly normal. There is trace tricuspid regurgitation. Summary Preop study Left ventricular systolic function is grossly normal. LVEF visually estimated at 55 to 60%. The apex and apical septum are hypokinetic. *There is a 0.8 x 0.6 cm mobile mass originating from the basal anteroseptum and extending into the LVOT. There is no evidence of LVOT obstruction. The right ventricular size and function appear grossly normal. There is moderate aortic stenosis (peak velocity 3.1 m/s, mean gradient 20 mmHg, aortic valve area 1.04 cm2 by continuity equation VTI). There is mild aortic regurgitation. 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 Recommendation Ordering physician Chad Marques MD present during imaging. Comparison No prior study available for comparison. Signature * Event Display: Trans-esophageal Echocardiogram Authored Date: [id number] Cardiology * Event Display: Cardiac Rhythm Strips Authored Date: * Event Display: Cardiac Rhythm Strips Authored Date: * Event Display: Outside Images Echo Images acquired from non-[facility] facility Demographics Patient Name JOANA REINA Gender Female Corporate Race Facility BSA 1.89 m2 Date of 1945 Age 77 year(s) Accession Number [id number] Procedure Procedure Type Outside Images:Outside Images Echo * Event Display: Outside Images Echo Hospital Progress note * Di Choi RN: PERFORM, SIGN, VERIFY Event Display: Progress Note Hospital Authored Date: [id number] Patient: DIA BERNARD Age: 77 years Sex: Female : 1945 Associated Diagnoses: None Author: Di Choi RN Findings Nursing Data Cardiac Data. : Cardiac Data. 09/23/2022 9:00 EDT Heart Sounds S1, S2 Heart Rhythm Regular Pacemaker No Cardiac Rhythm Sinus bradycardia Capillary Refill < 3 seconds Carotid Pulse, Left Normal Carotid Pulse, Right Normal Brachial Pulse, Left Normal Brachial Pulse, Right Normal Radial Pulse, Left Normal Radial Pulse, Right Normal Femoral Pulse, Left Normal Femoral Pulse, Right Normal Popliteal Pulse, Left Normal Popliteal Pulse, Right Normal Posttibial Pulse, Left Normal Posttibial Pulse, Right Normal Dorsalis Pedis Pulse, Left Normal Dorsalis Pedis Pulse, Right Normal cardiac monitor technician Yes Cardiovascular WNL except . Narrative/Incidental patient is a&ox4, NSR on tele. can move all extremities, follows commands. c/o pain in her backside due to skin breakdown, she gets triad on bottom. no edema, pp+, incisions from surgery are midsternal, abdomen epigastric region, left radial and right leg all FARM CONSULTANT and dry. . Discharge Information Functional Assessment Personal hygiene: assist. Feeding ability: self. Standing ability: with assist. Mobility assistance: ambulate, assist of 1. Chair transfer: with assist. Case Management Discharge Plan : Case Management Discharge Plan Data 09/24/2022 11:41 EDT Discharge Level of Care at Discharge [facility] facility Discharge Nursing Homes/Rehab Facilities Care [facility] Discharge Transportation Arranged [facility] [address] [place] [phone] Discharge Arranged Transport Date/Time 09/24/2022 16:00 Mode of Transportation Arranged Ambulance Name of Agency #1 [facility] Service Categories #1 Occupational Therapy, Physical Therapy, [facility], Purchasing Contracting Clerk Service Start Date and Time #1 09/24/2022 16:00 Name of Person Notified of Transfer [facility] Discharge : Rehab Discharge Index 09/24/2022 10:35 EDT Walker: distance < 10 Full chart review completed Not Done: Task Duplication (Not Done) 09/19/2022 15:28 EDT Walker: distance < 10 Nadia Falcon NP, Stefani Garcia: PERFORM Event Display: Progress Note Hospital Authored Date: [id number] Patient: ??DIA BERNARD ? Age:??77 Years?Sex:??Female?:??1945?? Subjective POD #25 CABG x3 Pending insurance auth for rehab SR 50-60s, apixaban for afib s/p cardioversion ?? Review of Systems Denies complaints Past Medical History Active Problems??(8) Acute myocardial infarction of anterior wall Atrial fibrillation with RVR Cardiogenic shock Diabetes mellitus - adult onset Heart failure with reduced ejection fraction Hypertension Obese class I Right heart failure due to left heart failure ? Past Surgical History No surgery history documented. ? Objective Vital Signs?? Temperature: 98.5 DegF (09/23/22 19:00:00) Temperature Route: Oral (09/23/22 19:00:00) Pulse Rate: 62 bpm (09/23/22 19:00:00) Respiratory Rate:??15 br/min??Low (09/23/22 19:00:00) Systolic Blood Pressure: 105 mm Hg (09/23/22 19:00:00) Diastolic Blood Pressure: 63 mm Hg (09/23/22 19:00:00) Blood pressure sites: Arm, left (09/23/22 19:00:00) Mean Arterial Pressure: 70 mm Hg (09/23/22 16:32:00) Pulse Pressure: 42 mm Hg (09/23/22 19:00:00) Oxygen Saturation: 97 % (09/23/22 19:00:00) Mode of Delivery (Oxygen): Room air (09/23/22 19:00:00) Early Warning Score: 0 (09/23/22 19:28:59) ? Pain Scores 1 - 10 Pain Scale Score: 8 (09:00) ? Intake/Output? 08/28 05:26 09/23 07:00 09/22 07:00 09/21 07:00 09/20 07:00 ?? 09/23 19:47 09/23 19:47 09/23 06:59 09/22 06:59 09/21 06:59 Intake ?69465.3 ?0 ?569 ?340 ?532 Output ?47611 ?0 ? 2275 ?400 ?925 Net Total ? -24556.7 ?0 ?-1706 ?-60 ? -393 ? Urine Count ? 11 ?0 ?0 ?2 ?3 ? Physical Exam _ Home Medications Amlodipine (amlodipine 10 mg oral tablet)?10?Milligram?1?tablet?By Mouth?Daily?for 90?Days Aspirin (aspirin 81 mg oral capsule)?1?capsule?81?Milligram?By Mouth?Daily Atorvastatin (atorvastatin 80 mg oral tablet)?1?tab(s)?80?Milligram?By Mouth?Daily Cholecalciferol (Vitamin D3 50 mcg (2000 intl units) oral tablet, chewable)?1?tab(s)?50?Microgram?By Mouth?Daily Clopidogrel (Plavix 75 mg oral tablet)?75?Milligram?1?tablet?By Mouth?Daily Folic Acid?Daily Losartan (losartan 100 mg oral tablet)?1?tab(s)?100?Milligram?By Mouth?Daily Metoprolol (metoprolol 50 mg oral tablet)?50?Milligram?1?tab(s)?By Mouth?twice a day?for 30?Days Miscellaneous Rx (LIPOSOMAL VITAMIN C)?1?tab(s)?Oral?Daily Multivitamin (B 100 Complex oral tablet)?1?tab(s)?By Mouth?Daily ? Inpatient Medications Medications (34) Active SCHEDULED: (24) Acetaminophen 325 mg Tablet (acetaminophen 325 mg oral tablet) ??975 mg, By Mouth, Every 8 hours Albuterol/Ipratropium Inhalation Liz 3mL (Duoneb Inhalation Solution) ??1 vials, BAND Nebulizer, 4 times a day Apixaban 5 mg Tablet (Apixaban Tablet) ??5 mg, By Mouth, 2 times a day Aspirin 81 mg Chew Tablet (Aspirin Tablet) ??81 mg, By Mouth, Daily Atorvastatin 40 mg Tablet (Atorvastatin Tablet) ??40 mg, By Mouth, Daily at bedtime Digoxin 0.125 mg Tablet (Digoxin Tablet) ??0.125 mg, By Mouth, Every 48 hours Ferrous Sulfate 325 mg EC Tablet (ferrous sulfate 325 mg oral enteric coated tablet) ??325 mg, By Mouth, Daily Insulin Glargine 100 units/mL Inj (Lantus Inj) ??19 units 0.19 mL, Subcutaneous Injection, Daily Insulin Lispro 100 units/mL Inj (3mL) (Insulin LISPRO Inj) ??2 units 0.02 mL, Subcutaneous Injection, 3 times a day before meals Insulin Lispro 100 units/mL Inj (3mL) (Insulin LISPRO Sliding Scale) ??2-10 units, Subcutaneous Injection, 3 times a day before meals Lactulose 20 Gm/30mL Syrup (Lactulose Syrup) ??20 Gm 30 mL, By Mouth, Daily Lidocaine 5% Topical Patch (Lidocaine 5% Patch) ??1 each, Topically, Daily Metoprolol 25 mg XL Tablet (Toprol XL 25 mg oral tablet, extended release) ??12.5 mg, By Mouth, Daily Multivitamin Therapeutic / Minerals Tablet (Multivit Therapeutic/Minerals Tablet) ??1 tablet, By Mouth, Daily NaCl 0.9% Flush 3ml (Flush NaCl 0.9%) ??3 mL, IV Push, Every 8 hours Nystatin Powder ??1 application, Topically, 2 times a day Pantoprazole 40 mg EC Tablet (pantoprazole 40 mg oral delayed release tablet) ??40 mg, By Mouth, Daily Polyethylene Glycol 17 Gm Powder (MiraLax Powder) ??17 Gm 1 pack/packet, By Mouth, Daily Remove Patch (Remove Lidocaine Patch) ??1 each, Topically, Daily at bedtime Senna 8.6 mg / Docusate 50 mg tablet (Docusate/Senna Tablet) ??2 tablet, By Mouth, Daily Sertraline 25 mg Tablet (sertraline 25 mg oral tablet) ??25 mg, By Mouth, Daily Spironolactone 25 mg Tablet (spironolactone 25 mg oral tablet) ??25 mg, By Mouth, Daily Tamsulosin 0.4 mg Capsule (Flomax 0.4 mg oral capsule) ??0.4 mg, By Mouth, Daily Vashe Wound Care Emollient/Cleanser (Vashe Topical Solution) ??475 mL, Topically, Every 12 hours CONTINUOUS: (0) PRN: (10) Albuterol/Ipratropium Inhalation Liz 3mL (Duoneb Inhalation Solution) ??1 vials, BAND Nebulizer, Every 4 hours Bisacodyl 10 mg Suppository (Bisacodyl Supp) ??10 mg 1 supp, Rectally, Daily Bisacodyl 5 mg EC Tablet (Bisacodyl Tablet) ??10 mg, By Mouth, Daily Magnesium Sulfate 2 Gm /50 mL (Magnesium Sulfate IVPB) ??2 Gm 50 mL, IVPB, Every 4 hours NaCl 0.9% Flush 3ml (Flush NaCl 0.9%) ??3 mL, IV Push, Every 8 hours Ondansetron 2mg/mL Inj (2mL Vial) (Ondansetron Inj) ??4 mg, IV Push, Every 6 hours Potassium Chloride 10mEq ER Tablet (Potassium Chloride Tablet) ??40 mEq, By Mouth, Daily Sodium Chloride 0.65% Nasal Shelbina (Salinex Shelbina) ??1 sprays, Nares, Both, 4 times a day TraMADOL 50 mg Tablet (traMADol 50 mg oral tablet) ??25 mg, By Mouth, Every 6 hours Vashe Wound Care Emollient/Cleanser (Vashe Topical Solution) ??475 mL, Topically, Every 6 hours ? Results Recent Labs BLOOD BANK RBC Unit ID [id number] ()?? 09/22/2022 14:44 RBC Available PT ()?? 09/22/2022 14:44 ?? BLOOD COUNT & DIFF WBC 8.5 k/mm3 ()?? 09/23/2022 04:05 RBC 2.82 m/mm3 (Low)?? 09/23/2022 04:05 Hgb 8.4 Gm/dL (Low)?? 09/23/2022 04:05 Hct 26.9 % (Low)?? 09/23/2022 04:05 MCV 95.4 femtoliters ()?? 09/23/2022 04:05 MCH 29.8 pg ()?? 09/23/2022 04:05 MCHC 31.2 g/dL (Low)?? 09/23/2022 04:05 Platelet Count 226 k/mm3 ()?? 09/23/2022 04:05 RDW-SD 85.0 femtoliters (High)?? 09/23/2022 04:05 MPV 10.8 femtoliters ()?? 09/23/2022 04:05 Nucleated RBC (Automated) 0.2 #/100 WBC'S ()?? 09/23/2022 04:05 Abs. NRBC 0.0 k/mm3 ()?? 09/23/2022 04:05 ?? CHEM GENERAL Sodium 139 mmol/L ()?? 09/23/2022 04:06 Potassium 4.9 mmol/L ()?? 09/23/2022 04:06 Chloride 103 mmol/L ()?? 09/23/2022 04:06 Bicarbonate Level 29 mmol/L ()?? 09/23/2022 04:06 Anion Gap 7 ()?? 09/23/2022 04:06 Glucose, POC 291 mg/dL (High)?? 09/23/2022 16:31 BUN 29 mg/dL (High)?? 09/23/2022 04:06 Creatinine-Blood 1.0 mg/dL ()?? 09/23/2022 04:06 Estimated GFR Creatinine 59 ML/MIN/1.73 M2 ()?? 09/23/2022 04:06 Magnesium 1.9 mg/dL ()?? 09/23/2022 04:06 ? Abnormal Labs ?? BLOOD COUNT & DIFF ??Abs. NRBC ??0.0 k/mm3 () ??09/23/2022 04:05 ??Hct ??26.9 % (Low) ??09/23/2022 04:05 ??Hgb ??8.4 Gm/dL (Low) ??09/23/2022 04:05 ??MCHC ??31.2 g/dL (Low) ??09/23/2022 04:05 ??Nucleated RBC (Automated) ??0.2 #/100 WBC'S () ??09/23/2022 04:05 ??RBC ??2.82 m/mm3 (Low) ??09/23/2022 04:05 ??RDW-SD ??85.0 femtoliters (High) ??09/23/2022 04:05 ? CHEM GENERAL ??BUN ??29 mg/dL (High) ??09/23/2022 04:06 ??Estimated GFR Creatinine ??59 ML/MIN/1.73 M2 () ??09/23/2022 04:06 ??Glucose, POC ??291 mg/dL (High) ??09/23/2022 16:31 ? Note: Critical results are displayed in red. ? Urinalysis?? No qualifying data available. ?? Microbiology ?? Blood Culture?? Completed?? Source: Blood Body Site: ?? Collected Dt/Tm: 08/28/2022 08:42 Last Updated Dt/Tm: 08/28/2022 09:41 ?SPECIMEN DESCRIPTION : BLOOD ??L ACSPECIAL REQUESTS : NONECULTURE : NO GROWTH 5 DAYS.REPORT STATUS : FINAL 09/02/2022 Blood Culture #2?? Completed?? Source: Blood Body Site: ?? Collected Dt/Tm: 08/28/2022 08:42 Last Updated Dt/Tm: 08/28/2022 09:42 ?SPECIMEN DESCRIPTION : BLOOD ??CENTRAL LINESPECIAL REQUESTS : NONECULTURE : NO GROWTH 5 DAYS.REPORT STATUS : FINAL 09/02/2022 ? Assessment/Plan ?? The patient is a 77-year-old female who has a history of hypertension, hyperlipidemia, coronary artery disease, who was found to have moderate aortic stenosis in addition to her triple vessel coronary artery disease. ??She comes for coronary artery bypass grafting and aortic valve replacement. ??The aortic stenosis was moderate and there was also AI and, by transesophageal echo, there appeared joanne an approximately 5 x 5 mm mobile mass in the LV outflow tract, but there was a 25 mm gradient across the aortic valve. ??So, aortic valve replacement was planned. ?? On ??08/28/2022 the patient underwent the following OPERATION: ??Coronary artery bypass grafting x3with left internal mammary anastomosed to the left anterior descending, greater saphenous vein graft anastomosed to the right main coronary artery and a radial artery graft anastomosed to the first diagonal branch of the left anterior descending; aortic valve replacement with a 19 mm Inspiris bovine pericardial valve; exploration of the left ventricle using direct vision and a mediastinoscope; cardiopulmonary bypass, hypothermic blood cardioplegic arrest. ?? PREOPERATIVE DIAGNOSES: ??Aortic stenosis, coronary artery disease, and possible left ventricular mass. ?? POSTOPERATIVE DIAGNOSES: ??Aortic stenosis, coronary artery disease, and no apparent left ventricular mass. ?? SURGEON: ??Chad Marques M.D. ?? ASSISTANTS: ??assistant corporation counsel was Abdiaziz Flores ??He was there from skin to skin. ??Also, Samuel Cyr PConnieAConnie, who harvested the radial and was there from skin to skin as well. ?? Applications Coordinator: Dr. Stone?? POD 25 ?? Neuro?? -Post-operative Pain scheduled Tylenol -coccxy pain lido patch added tramadol Deconditioned - PT/OT consulted (STR recommended for discharge) ?? Cardiovascular CADs/p CABGx3, AVR-T Hypotension secondary to vasoplegia RH failure 2nd to LH failure-??resolved Acute Heart Failure w/ Reduced Ejection Fraction 25% due to Acute distal anterior [place] post [place] surgery. Suspect from demand in setting of distal LAD stenosis during sustained rapid afib. HX of HTN and HLD Afib RVR s/p cardioversion (Cardioverted 08/31 for unstable afib RVR) To clinical lab technologist to f/u echo which showed some akinesis - grafts patent- likely demand ischemia due to hypotension, hypoperfusion AFIB cardioverted into SR with first degree and LBB (09/06) Amio load of ~10 g Amio 400 mg PO qd HF consulted: Overloaded- improving 1. Continue dig. 2. Continue oral lasix?? 3. dapagliflozin declined due to cost 4. Continue aldactone 25mg daily. 5. valsartan 20 mg bid - holding (Resume once BP allows) 6. 24/26 mg BID Entresto declined due to cost 7. Toprol XL decreased to 12.5 mg po daily Followup with heading and priming tool setter on discharge to titrate antihypertensives ? PULM respiratory insufficiency, postoperative Current Smoker Extubated as expected post-operatively keep spo2 > 92% Room air ?? GI Cardiac diet ppi discontinue at discharge ?? Renal Metabolic Acidosis: resolved Hyponatremia- resolved Baseline Creatinine: 0.9-1.0 strict i&o replete lytes per protocol hypervolemia: ??low dose torsemide 20mg daily ?? Heme Acute Blood loss anemia Thrombocytopenia (improving) platelets 194k?? Pf4/YORDAN sent 09/01--YORDAN lab error--resent on 09/03- YORDAN negative - no PF4 sent started apixaban for PAF transfused 1uPRBC on 09/02, 09/11, 09/20 ? ID: leukocytosis resolved ID consulted, appreciate recs; Zosyn for possible PNA started 09/08 completed 09/12 ?? Endo stress induced hyperglycemia DMII A1C 7.6 BIDS??Discharge recommendations: Patient's A1c 7.6% diet controlled. ??Over the past 24 hours patient's insulin requirements has been approximately 21 units which is reflective of 0.2 units/kg. ??Given this I would recommend discontinuing both her basal/bolus insulin at discharge and initiating an oral agent. ??As long as patient's renal function remains appropriate I would recommend metformin 500 mg twice daily, increasing to 1000 mg twice daily after 1 week.?She will need to follow-up withher PCP within 1-2 weeks of discharge for further monitoring and management. ?? Dispo: transfuse, monitor BP,??rehab when medically ready ? * Tyler Navarrete: PERFORM Event Display: Progress Note Hospital Authored Date: Patient: ??DIA BERNARD ? Age:??77 Years?Sex:??Female?:??1945?? Subjective SR 50-60s, apixaban for afib s/p cardioversion H+H 7.3/23.3, BP 90s, transfuse 1 u prbc, start PO iron waiting for insurance auth for rehab ?? Review of Systems Past Medical History Active Problems??(8) Acute myocardial infarction of anterior wall Atrial fibrillation with RVR Cardiogenic shock Diabetes mellitus - adult onset Heart failure with reduced ejection fraction Hypertension Obese class I Right heart failure due to left heart failure ? Past Surgical History No surgery history documented. ? Objective Vital Signs?? Temperature: 97.9 DegF (09/22/22 16:00:00) Temperature Route: Oral (09/22/22 12:24:00) Pulse Rate: 70 bpm (09/22/22 16:00:00) Respiratory Rate: 18 br/min (09/22/22 16:00:00) Systolic Blood Pressure: 98 mm Hg (09/22/22 16:00:00) Diastolic Blood Pressure:??44 mm Hg??Low (09/22/22 16:00:00) Blood pressure sites: Arm, left (09/22/22 16:00:00) Mean Arterial Pressure: 61 mm Hg (09/22/22 12:24:00) Pulse Pressure: 54 mm Hg (09/22/22 12:24:00) Oxygen Saturation: 95 % (09/22/22 16:00:00) Mode of Delivery (Oxygen): Room air (09/22/22 16:00:00) Early Warning Score: 5 (09/22/22 16:02:44) ? Intake/Output? 08/28 05:26 09/22 07:00 09/21 07:00 09/20 07:00 09/19 07:00 ?? 09/22 16:41 09/22 16:41 09/22 06:59 09/21 06:59 09/20 06:59 Intake ?69929.3 ?160 ?340 ?532 ?720 Output ?80761 ?875 ?400 ?925 ? 1200 Net Total ? -64448.7 ? -715 ?-60 ? -393 ? -480 ? Urine Count ? 13 ?0 ?2 ?0 ?4 ? Physical Exam _ Inpatient Medications Medications (34) Active SCHEDULED: (24) Acetaminophen 325 mg Tablet (acetaminophen 325 mg oral tablet) ??975 mg, By Mouth, Every 8 hours Albuterol/Ipratropium Inhalation Liz 3mL (Duoneb Inhalation Solution) ??1 vials, BAND Nebulizer, 4 times a day Apixaban 5 mg Tablet (Apixaban Tablet) ??5 mg, By Mouth, 2 times a day Aspirin 81 mg Chew Tablet (Aspirin Tablet) ??81 mg, By Mouth, Daily Atorvastatin 40 mg Tablet (Atorvastatin Tablet) ??40 mg, By Mouth, Daily at bedtime Digoxin 0.125 mg Tablet (Digoxin Tablet) ??0.125 mg, By Mouth, Every 48 hours Ferrous Sulfate 325 mg EC Tablet (ferrous sulfate 325 mg oral enteric coated tablet) ??325 mg, By Mouth, Daily Insulin Glargine 100 units/mL Inj (Lantus Inj) ??19 units 0.19 mL, Subcutaneous Injection, Daily Insulin Lispro 100 units/mL Inj (3mL) (Insulin LISPRO Inj) ??2 units 0.02 mL, Subcutaneous Injection, 3 times a day before meals Insulin Lispro 100 units/mL Inj (3mL) (Insulin LISPRO Sliding Scale) ??2-10 units, Subcutaneous Injection, 3 times a day before meals Lactulose 20 Gm/30mL Syrup (Lactulose Syrup) ??20 Gm 30 mL, By Mouth, Daily Lidocaine 5% Topical Patch (Lidocaine 5% Patch) ??1 each, Topically, Daily Metoprolol 25 mg XL Tablet (Toprol XL 25 mg oral tablet, extended release) ??12.5 mg, By Mouth, Daily Multivitamin Therapeutic / Minerals Tablet (Multivit Therapeutic/Minerals Tablet) ??1 tablet, By Mouth, Daily NaCl 0.9% Flush 3ml (Flush NaCl 0.9%) ??3 mL, IV Push, Every 8 hours Nystatin Powder ??1 application, Topically, 2 times a day Pantoprazole 40 mg EC Tablet (pantoprazole 40 mg oral delayed release tablet) ??40 mg, By Mouth, Daily Polyethylene Glycol 17 Gm Powder (MiraLax Powder) ??17 Gm 1 pack/packet, By Mouth, Daily Remove Patch (Remove Lidocaine Patch) ??1 each, Topically, Daily at bedtime Senna 8.6 mg / Docusate 50 mg tablet (Docusate/Senna Tablet) ??2 tablet, By Mouth, Daily Sertraline 25 mg Tablet (sertraline 25 mg oral tablet) ??25 mg, By Mouth, Daily Spironolactone 25 mg Tablet (spironolactone 25 mg oral tablet) ??25 mg, By Mouth, Daily Tamsulosin 0.4 mg Capsule (Flomax 0.4 mg oral capsule) ??0.4 mg, By Mouth, Daily Vashe Wound Care Emollient/Cleanser (Vashe Topical Solution) ??475 mL, Topically, Every 12 hours CONTINUOUS: (0) PRN: (10) Albuterol/Ipratropium Inhalation Liz 3mL (Duoneb Inhalation Solution) ??1 vials, BAND Nebulizer, Every 4 hours Bisacodyl 10 mg Suppository (Bisacodyl Supp) ??10 mg 1 supp, Rectally, Daily Bisacodyl 5 mg EC Tablet (Bisacodyl Tablet) ??10 mg, By Mouth, Daily Magnesium Sulfate 2 Gm /50 mL (Magnesium Sulfate IVPB) ??2 Gm 50 mL, IVPB, Every 4 hours NaCl 0.9% Flush 3ml (Flush NaCl 0.9%) ??3 mL, IV Push, Every 8 hours Ondansetron 2mg/mL Inj (2mL Vial) (Ondansetron Inj) ??4 mg, IV Push, Every 6 hours Potassium Chloride 10mEq ER Tablet (Potassium Chloride Tablet) ??40 mEq, By Mouth, Daily Sodium Chloride 0.65% Nasal Shelbina (Salinex Shelbina) ??1 sprays, Nares, Both, 4 times a day TraMADOL 50 mg Tablet (traMADol 50 mg oral tablet) ??25 mg, By Mouth, Every 6 hours Vashe Wound Care Emollient/Cleanser (Vashe Topical Solution) ??475 mL, Topically, Every 6 hours ? Results Abnormal Labs ?? BLOOD COUNT & DIFF ??Abs. NRBC ??0.0 k/mm3 () ??09/22/2022 01:41 ??Hct ??23.3 % (Low) ??09/22/2022 01:41 ??Hgb ??7.3 Gm/dL (Low) ??09/22/2022 01:41 ??MCHC ??31.3 g/dL (Low) ??09/22/2022 01:41 ??MCV ??101.3 femtoliters (High) ??09/22/2022 01:41 ??Nucleated RBC (Automated) ??0.0 #/100 WBC'S () ??09/22/2022 01:41 ??RBC ??2.30 m/mm3 (Low) ??09/22/2022 01:41 ??RDW-SD ??70.3 femtoliters (High) ??09/22/2022 01:41 ? CHEM GENERAL ??BUN ??35 mg/dL (High) ??09/22/2022 01:41 ??Estimated GFR Creatinine ??62 ML/MIN/1.73 M2 () ??09/22/2022 01:41 ??Glucose, POC ??125 mg/dL (High) ??09/22/2022 12:57 ? Note: Critical results are displayed in red. ? Assessment/Plan The patient is a 77-year-old female who has a history of hypertension, hyperlipidemia, coronary artery disease, who was found to have moderate aortic stenosis in addition to her triple vessel coronary artery disease. ??She comes for coronary artery bypass grafting and aortic valve replacement. ??The aortic stenosis was moderate and there was also AI and, by transesophageal echo, there appeared joanne an approximately 5 x 5 mm mobile mass in the LV outflow tract, but there was a 25 mm gradient across the aortic valve. ??So, aortic valve replacement was planned. ?? On ??08/28/2022 the patient underwent the following OPERATION: ??Coronary artery bypass grafting x3with left internal mammary anastomosed to the left anterior descending, greater saphenous vein graft anastomosed to the right main coronary artery and a radial artery graft anastomosed to the first diagonal branch of the left anterior descending; aortic valve replacement with a 19 mm Inspiris bovine pericardial valve; exploration of the left ventricle using direct vision and a mediastinoscope; cardiopulmonary bypass, hypothermic blood cardioplegic arrest. ?? PREOPERATIVE DIAGNOSES: ??Aortic stenosis, coronary artery disease, and possible left ventricular mass. ?? POSTOPERATIVE DIAGNOSES: ??Aortic stenosis, coronary artery disease, and no apparent left ventricular mass. ?? SURGEON: ??Chad Marques M.D. ?? ASSISTANTS: ??assistant corporation counsel was Abdiaziz Flores ??He was there from skin to skin. ??Also, Samuel Cyr POg, who harvested the radial and was there from skin to skin as well. ?? Applications Coordinator: Dr. Stone?? POD 24? Neuro?? -Post-operative Pain scheduled Tylenol -coccxy pain lido patch added tramadol Deconditioned - PT/OT consulted (STR recommended for discharge) ?? Cardiovascular CADs/p CABGx3, AVR-T Hypotension secondary to vasoplegia RH failure 2nd to LH failure-??resolved Acute Heart Failure w/ Reduced Ejection Fraction 25% due to Acute distal anterior [place] surgery. Suspect from demand in setting of distal LAD stenosis during sustained rapid afib. HX of HTN and HLD Afib RVR s/p cardioversion (Cardioverted 08/31 for unstable afib RVR) To clinical lab technologist to f/u echo which showed some akinesis - grafts patent- likely demand ischemia due to hypotension, hypoperfusion AFIB cardioverted into SR with first degree and LBB (09/06) Amio load of ~10 g Amio 400 mg PO qd HF consulted: Overloaded- improving 1. Continue dig. 2. Continue oral lasix?? 3. dapagliflozin declined due to cost 4. Continue aldactone 25mg daily. 5. valsartan 20 mg bid - holding (Resume once BP allows) 6. 24/26 mg BID Entresto declined due to cost 7. Toprol XL decreased to 12.5 mg po daily Followup with heading and priming tool setter on discharge to titrate antihypertensives ? PULM respiratory insufficiency, postoperative Current Smoker Extubated as expected post-operatively keep spo2 > 92% Room air ?? GI Cardiac diet ppi discontinue at discharge ?? Renal Metabolic Acidosis: resolved Hyponatremia- resolved Baseline Creatinine: 0.9-1.0 strict i&o replete lytes per protocol hypervolemia: ??low dose torsemide 20mg daily ?? Heme Acute Blood loss anemia Thrombocytopenia (improving) platelets 194k?? Pf4/YORDAN sent 09/01--YORDAN lab error--resent on 09/03- YORDAN negative - no PF4 sent started apixaban for PAF transfused 1uPRBC on 09/02, 09/11, 09/20 ? ID: leukocytosis resolved ID consulted, appreciate recs; Zosyn for possible PNA started 09/08 completed 09/12 ?? Endo stress induced hyperglycemia DMII A1C 7.6 BIDS??Discharge recommendations: Patient's A1c 7.6% diet controlled. ??Over the past 24 hours patient's insulin requirements has been approximately 21 units which is reflective of 0.2 units/kg. ??Given this I would recommend discontinuing both her basal/bolus insulin at discharge and initiating an oral agent. ??As long as patient's renal function remains appropriate I would recommend metformin 500 mg twice daily, increasing to 1000 mg twice daily after 1 week.?She will need to follow-up withher PCP within 1-2 weeks of discharge for further monitoring and management. ?? Dispo: transfuse, monitor BP,??rehab when medically ready ? Consult note * Anny Jeffers NP: MODIFY, PERFORM Event Display: Consultation Note Authored Date: [id number] Patient: ??DIA BERNARD ? Age:??77 Years?Sex:??Female?:??1945?? Reason for Consult/Visit Symptomatic Anemia of unknown origin requiring multiple transfusions Requesting Physician Stefani Falcon NP Hematology/Oncology History Dia Bernard is a 77 year old woman with PMH CVA,??A-fib??with RVR, hypertension, hyperlipidemia, coronary artery disease, diabetes,??heart failure with a decreased EF??who was found to have moderate aortic stenosis in addition to her triple vessel coronary artery disease. She is status post CABG x3 August 28, 2022 and aortic valve replacement.?AFib S/P conversion, will be discharged with apixiban. Hematology was consulted for symptomatic anemia of unknown origin,??requiring multiple transfusions. ?? Dia received pRBCs??on 09/02 x 2, 09/11, 09/20 and 09/22.? Retic count was 3 on 08/31 and haptoglobin of 33. Ferritin 649 on 09/13. ??Vitamin B12 1432, folic acid 13.9. Hemoglobin level this morning is 8.7, hematocrit 27.9.? 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 Pleural fluid was sent for evaluation without any evidence of malignancy. ? Dia is a former tobacco user, states quit > 1 month ago, denies alcohol use. She lives with son, KAMRON. No history of blood transfusion in the past. No family history of blood disorders or cancersin the family. She is experiencing fatigue, no SOB or chest pain. Not reporting bleeding issues, no LE pain. Experiences pain with laying D/T tail bone fracture as a teenager. Not eating much as she does not like the hospital food, will eat the fruit and oatmeal, states not much else as it will cause her nausea, no vomiting. (+) for constipation, no recent diarrhea. ?? Dia states not getting much exercise, ambulation at this time, although is hoping to participate in PT when gets to Rehab. Plan is to be discharged later this afternoon to [facility] in [place]. Review of Systems REVIEW OF SYSTEMS:?? Constitutional: HEENT: CV: Resp: GI: : Musculoskeletal: Integumentary: Neurologic: Psychiatric: Hematologic: - all systems reviewed with pertinent positive and negatives noted in HPI.?? Problem List/Past Medical History Ongoing Acute myocardial infarction of anterior wall Atrial fibrillation with RVR Cardiogenic shock Diabetes mellitus - adult onset Heart failure with reduced ejection fraction Hypertension Obese class I Right heart failure due to left heart failure Procedure/Surgical History CABGx3, AVR-T Afib RVR s/p cardioversion (Cardioverted 08/31 for unstable afib RVR) Family History Denies Blood disorders in the family Denies Cancers in the family Social History Lives with son & DIL Tobacco use- quit 1 month ago No alcohol use Allergies amoxicillin??(Hives) Medications Inpatient acetaminophen 325 mg oral tablet, 975 mg, By Mouth, Every 8 hours Apixaban Tablet, 5 mg, By Mouth, 2 times a day Aspirin Tablet, 81 mg, By Mouth, Daily Atorvastatin Tablet, 40 mg, By Mouth, Daily at bedtime Bisacodyl Supp, 10 mg= 1 supp, Rectally, Daily, PRN Bisacodyl Tablet, 10 mg, By Mouth, Daily, PRN Digoxin Tablet, 0.125 mg, By Mouth, Every 48 hours Docusate/Senna Tablet, 2 tablet, By Mouth, Daily Duoneb Inhalation Solution, 1 vials, BAND Nebulizer, 4 times a day Duoneb Inhalation Solution, 1 vials, BAND Nebulizer, Every 4 hours, PRN ferrous sulfate 325 mg oral enteric coated tablet, 325 mg, By Mouth, Daily Flomax 0.4 mg oral capsule, 0.4 mg, By Mouth, Daily Flush NaCl 0.9%, 3 mL, IV Push, Every 8 hours, PRN Flush NaCl 0.9%, 3 mL, IV Push, Every 8 hours Insulin LISPRO Inj, 2 units= 0.02 mL, Subcutaneous Injection, 3 times a day before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 artery stenosis status post endarterectomy in 2019.?? Presented to the hospital with??dyspepsia. ??Underwent cardiac catheterization which revealed multivessel coronary artery disease.?? She underwent coronary artery bypass grafting x3 with bovine??aortic valve replacement??on August [address] Marques. ??A mass was found in the left ventricular outflow tract intraoperatively.?? Eventually??extubated postoperatively without event??but had atrial fibrillation requiring cardioversion, anemia requiring transfusion and was reintubated on August 31. 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 She is being aggressively diuresed on a Lasix drip. ??She is anticoagulated with bivalirudin.?? High oxygen requirement??via mechanical ventilation, FiO2 80%, PEEP of 10. ??CT of the chest was obtained revealing a right-sided pleural effusion. ??She also has??evidence of mucous plugging and atelectasis in the bilateral upper and lower lobes.?? Pulmonary was consulted in regards to??the right-sided pleural effusion and requesting chest tube placement. ??Procedure was performed??this afternoon. ??Please see full??procedure note for details. Review of Systems 14 point review of systems unable to be obtained secondary to the patient's clinical condition Physical Exam Vitals & Measurements T:??97.5?F?? TMIN:??97.3?F?? TMAX:??98.1?F?? HR:??69??(Monitored)?? RR:??25??(Total)?? BP:??107/47(Line)?? SpO2:??97%?? WT:??100.3??kg?? Constitutional: Intubated, sedated Head: Normocephalic. Eyes: No scleral icterus or conjunctival injection Ear, Nose and Throat: ET tube and OG tube in place Neck: Supple, Full range of motion. Respiratory: Clear to auscultation. ??Diminished in right base, no overt wheezing Cardiovascular: Irregularly irregular. No murmurs, rubs or gallops.?? Pitting edema bilaterally Gastrointestinal: Abdomen soft, non-tender, non-distended. Neurologic: Cranial nerves II-XII grossly intact. No focal neurological deficits. Skin: No rashes or lesions. No petechiae or purpura.?? Musculoskeletal: No cyanosis or clubbing. No gross deformities. Normal range of motion. Psychiatric: Sedated Assessment/Plan Right-sided pleural effusion Mucous plugging and atelectasis Acute hypoxic respiratory failure requiring mechanical ventilation Coronary artery disease status post CABG x3 Aortic valve replacement Atrial fibrillation Volume overload ?? 14 [place] right-sided pigtail catheter placed today for right-sided pleural effusion Serosanguineous fluid likely related to??post CABG inflammatory infusion Fluid studies will be sent for further analysis Chest tube to -20 cm of water ?? Would recommend aggressive CPT??with MetaNebs/Volera??treatments??for bilateral atelectasis??related to mucous plugging ?? Wean FiO2 and PEEP as tolerated for O2 sat goal greater than 92% ?? Pulmonary will follow Discussed with Dr. Shukla ?? Rodrigo Pope DO PGY-4 Pulmonary and Critical Care Medicine Fellow Problem List/Past Medical History Ongoing Acute myocardial infarction of anterior wall Atrial fibrillation with RVR Cardiogenic shock Diabetes mellitus - adult onset Heart failure with reduced ejection fraction Hypertension Obese class I Right heart failure due to left heart failure Procedure/Surgical History Tonsillectomy Medications Inpatient Acetaminophen Tablet, 975 mg, By Mouth, Every 6 hours Albuterol 0.083% inhalation liz, 2.5 mg= 3 mL, BAND Nebulizer, 4 times a day Albuterol 0.083% inhalation liz, 2.5 mg= 3 mL, BAND Nebulizer, Every 4 hours, PRN amiODARONE Tablet, 400 mg, By Mouth, Every 12 hours amiODARONE Tablet, 200 mg, By Mouth, Daily Aspirin Tablet, 81 mg, By Mouth, Daily Atorvastatin Tablet, 40 mg, By Mouth, Daily at bedtime Bisacodyl Supp, 10 mg= 1 supp, Rectally, Daily, PRN Bisacodyl Tablet, 10 mg, By Mouth, Daily, PRN Bivalirudin Cont IV 250 mg [0.28 mg/kg/hr] + D5%W Normalized 250 mL Calcium Gluconate 9.2mEq/100mLNaCL (2Gm), 9.2 mEq= 100 mL, IVPB, Every hour, PRN Calcium Gluconate 9.2mEq/100mLNaCL (2Gm), 9.2 mEq= 100 mL, IVPB, Every 2 hours, PRN ceFAZolin Inj, 2 Gm, IV Push, Once Cefepime Extended IVPB, 2000 mg, IVPB, Every 12 hours Dextrose 50% Inj Syringe (25Gm), 12.5 Gm, IV Push Slowly, Every hour, PRN Dextrose 50% Inj Syringe (25Gm), 25 Gm, IV Push Slowly, Every hour, PRN Digoxin Tablet, 0.125 mg, By Mouth, Daily Docusate/Senna Tablet, 2 tablet, By Mouth, Daily EPINEPHrine 2 mg / D5W 250 mL 2 mg, 2 mg= 250 mL, IV Infusion FENTanyl 1000mcg / 100mL NaCl 1,000 mcg, 1000 mcg= 100 mL, IV Infusion FENTanyl Inj, 50 mcg= 1 mL, IV Push Slowly, Every 5 minutes, PRN Flush NaCl 0.9%, 3 mL, IV Push, Every 8 hours, PRN Flush NaCl 0.9%, 3 mL, IV Push, Every 8 hours, PRN Furosemide Cont IV 100 mg [10 mg/hr] + NaCL 0.9% Normalized 100 mL Gabapentin Capsule, 100 mg, By Mouth, 3 times a day HYDROmorphone Inj, 0.5 mg= 0.5 mL, IV Push Slowly, Every hour, PRN Insulin R 100 units in 100 mL Premix 100 units [1 units/hr] + NaCL 0.9% Premixed IV 100 mL Insulin REGULAR Human Sliding Scale, 2-8 units, IV Push, Every hour, PRN Insulin REGULAR Inj, 10 units= 0.1 mL, IV Push Slowly, Every hour, PRN Insulin REGULAR Inj, 20 units= 0.2 mL, IV Push Slowly, Every hour, PRN Lactulose Syrup, 20 Gm= 30 mL, By Mouth, Daily Levophed 4 mg / D5W 250 mL 4 mg, 4 mg= 250 mL, IV Infusion Magnesium Sulfate IVPB, 2 Gm= 50 mL, IVPB, Every 4 hours, PRN MiraLax Powder, 17 Gm= 1 pack/packet, By Mouth, Daily NaCL 0.45% 1,000 mL, 1000 mL, IV Infusion NaCL 0.45% 1,000 mL, 1000 mL, IV Infusion NaCL 0.45% 500 mL, 500 mL, IV Infusion NaCL 0.45% 500 mL, 500 mL, IV Infusion NaCL 0.9% 500 mL, 500 mL, Intra-arterial NaCL 0.9% 500 mL, 500 mL, IV Infusion NORepinephrine Cont IV 16 mg + NaCL 0.9% for Titration 250 mL Nystatin Powder, 1 application, Topically, 2 times a day Ondansetron Inj, 4 mg, IV Push, Every 6 hours, PRN OxyCODONE IR Tablet, 2.5 mg, By Mouth, Every 4 hours, PRN OxyCODONE IR Tablet, 5 mg, By Mouth, Every 4 hours, PRN Pantoprazole Inj, 40 mg, IV Push Slowly, Daily Peridex 0.12% Liquid, 15 mL, Topically, 2 times a day PHENYLephrine Syringe, 100 mcg= 1.25 mL, IV Push, Once, PRN Potassium Chloride 40 mEq/100 mL IVPB, 40 mEq= 100 mL, IVPB, Every 4 hours, PRN Potassium Chloride Packet, 40 mEq, By Mouth, Every 4 hours, PRN Potassium Chloride Tablet, 40 mEq, By Mouth, Every 4 hours, PRN Propofol 1% /100 mL 1,000 mg, 1000 mg= 100 mL, IV Infusion sodium bicarbonate 8.4% intravenous solution, 50 mEq= 50 mL, IV Push, Every 15 minutes, PRN sodium bicarbonate 8.4% intravenous solution, 50 mEq= 50 mL, IV Push, Every hour, PRN Sodium Polystyrene Sulfonate Powder, 30 Gm, By Mouth, Every hour, PRN Vashe Topical Solution, 475 mL, Topically, Every 12 hours Vashe Topical Solution, 475 mL, Topically, Every 6 hours, PRN Vasopressin 20 units / NaCL 100 mL 20 units, 20 units= 100 mL, IV Infusion Home amlodipine 10 mg oral tablet, 10 mg= 1 tablet, By Mouth, Daily, 1 refills aspirin 81 mg oral capsule, 81 mg= 1 capsule, By Mouth, Daily atorvastatin 80 mg oral tablet, 80 mg= 1 tablet, By Mouth, Daily B 100 Complex oral tablet, 1 tablet, By Mouth, Daily Folic Acid, Daily LIPOSOMAL VITAMIN C, 1 tablet, By Mouth, Daily losartan 100 mg oral tablet, 100 mg= 1 tablet, By Mouth, Daily Magnesium Chloride metoprolol 50 mg oral tablet, 50 mg= 1 tablet, By Mouth, 2 times a day, 5 refills Plavix 75 mg oral tablet, 75 mg= 1 tablet, By Mouth, Daily Vitamin D3 50 mcg (2000 intl units) oral tablet, chewable, 50 mcg= 1 tablet, By Mouth, Daily Allergies amoxicillin??(Hives) Social History Smokes 1 pack/day for 60 years Family History Extensive family history of myocardial infarction * Gayla JORDAN, George: PERFORM Event Display: Consultation Note Authored Date: Patient seen, examined, investigative data reviewed and plan of care discussed with??Anmol. I agree with?Niko's history, exam findings and plan of care as documented.??Post CABG acute respiratory failure related to mucus plugging, atelectasis and pleural effusion. Right 14 Fr chest tubeplaced at bedside under USG guidance. Start CPT with Volera qid. Change duoneb to albuterol nebs 2.5 mg q 6 hourly. Diuresis as tolerated. Continue PEEP at 10 cm to help recruit atelectatic lung, wean FiO2 as tolerated. Patient Care team information Care Team Personnel Name: Daniella Doyle RN Position: S RN Member Role: Primary Care Nurse Name: Lia Stiles RN Position: S RN Supv Member Role: Primary Care Nurse Name: Felicia Mendez RN Position: [facility] RN Member Role: Primary Care Nurse Name: Ralf Beach RN Position: [facility] RN Member Role: Primary Care Nurse Name: Juan Prado RN Position: [facility] RN Member Role: Primary Care Nurse Name: Myranda Evangelista RN Position: [facility] RN Member Role: Primary Care Nurse Name: Delisa Rodriguez LPN Position: [facility] RN Member Role: Primary Care Nurse Name: Chris Collier RN Position: [facility] RN Member Role: Primary Care Nurse Name: Kelly Sotelo RN Position: [facility] RN Member Role: Primary Care Nurse Name: Dain Villafana RN Position: [facility] RN Member Role: Primary Care Nurse Name: Not on Staff, PCP Position: [facility] Physician (General Medicine) Member Role: PCP Name: Chris Logan RN Position: [facility] RN Member Role: Primary Care Nurse Name: Nury Romero RN Position: [facility] RN Member Role: Primary Care Nurse Name: Jamee Kothari RN Position: [facility] RN Member Role: Primary Care Nurse Name: Radha Bob Position: [facility] RN Member Role: Primary Care Nurse Care Team Related Persons Name: JOANA CAN Address: home [address] [place] [id number] Name: AYDEN PIMENTEL Address: home [address] [place] [id number]
--- OUTSIDE RECORDS SUMMARY | 2022-11-15 06:29 | XMS_ITS | Continuity of Care Document ---
Author Name Unknown Organization [facility] ter Address [address] [place] [id number] Care Team Providers Care Timekeeping Supervisor Name Role Phone Prakash Graham MD Primary Care Physician [place] [facility] [place] 10[place]19[place]22 - 10/24/[address] [address]- Attending Physician: Cahd Marques MD Admitting Physician: Chad Marques MD Referring Physician: Chad Marques MD Allergies, Adverse Reactions, Alerts Substance Reaction [...] 11/05/22 21:00:00 EDT, 10/24/22 13:22:00 EDT, Tablet, [facility], Partial fill upon patient request [...] 0 Refills, Maintenance, 09/24/22 12:51:00 EDT, Tablet, [facility], Partial fill upon [...] mg oral tablet, extended release 25 mg, XL Tablet, By Mouth, 10/24/22 9:00:00 EDT Start Date: 10/24/22 Stop Date: 10/24/22 Status: Completed Toprol XL 25 mg oral tablet, extended [...] due to left heart failure Confirmed Active Results Orders for Microbiology Reports Name Date Anaerobic Culture (ANAEROBIC CULTURE) Anaerobic Culture (ANAEROBIC CULTURE) Fungal Culture, Nonrespiratory (FUNGAL C ULT,NON-RESPIRATORY) 10/20/22 Fungal Culture, Nonrespiratory (FUNGAL C ULT,NON-RESPIRATORY) 10/20/22 Tissue Culture w/ Gram Smear (TISSUE/BIO PSY CULT.) 10/20/22 Wound Deep Culture w/ Gram Smear (DEEP W OUND CULTURE) 10/20/22 Blood Culture 10/19/22 Blood Culture #2 10/19/22 Microbiology Reports TEST:Anaerobic Culture STATUS:Auth (Verified) BODY SITE: SOURCE:TISSUE1 COLLECTED DATE/TIME:10/20/22 8:44 AM Anaerobic Culture SPECIMEN DESCRIPTION : TISSUE STERNAL WOUND SPECIAL REQUESTS : NONE CULTURE : NO ANAEROBES ISOLATED REPORT STATUS : FINAL 10/22/2022 TEST:Anaerobic Culture STATUS:Auth (Verified) BODY SITE: SOURCE:SWAB1 COLLECTED DATE/TIME:10/20/22 8:44 AM Anaerobic Culture SPECIMEN DESCRIPTION : SWAB STERNAL WOUND SPECIAL REQUESTS : NONE CULTURE : NO ANAEROBES ISOLATED REPORT STATUS : FINAL 10/22/2022 TEST:Tissue/Biopsy Culture STATUS:Auth (Verified) BODY SITE: SOURCE:TISSUE1 COLLECTED DATE/TIME:10/20/22 8:44 AM Tissue/Biopsy Culture SPECIMEN DESCRIPTION : TISSUE STERNAL WOUND SPECIAL REQUESTS : NONE GRAM STAIN : 1+ POLYMORPHONUCLEAR LEUKOCYTES NO ORGANISMS SEEN CULTURE : 2+ KLEBSIELLA (FORMERLY ENTEROBACTER) AEROGENES Due to potential resistance which can develop on therapy, monotherapy with a 3rd-generation cephalosporin (ceftriaxone, ceftazidime, cefpodoxime, cefixime) is not recommended to treat this organism. This isolate was identified using Maldi-TOF system These AST results were performed on the Microscan ID and AST system 1+ PROTEUS MIRABILIS This isolate was identified using Maldi-TOF system These AST results were performed on the Microscan ID and AST system REPORT STATUS : FINAL 10/22/2022 ORGANISM 2+ KLEBSIELLA (FORMERLY ENTEROBACTER) AEROGENES Due to potential resistance which can develop on therapy, monotherapy with a 3rd-generation cephalosporin (ceftriaxone, ceftazidime, cefpodoxime, cefixime) is not recommended to treat this organism. This isolate was identified using Maldi-TOF system These AST results were performed on the Microscan ID and AST system METHOD MIN. INHIB. CONC. (MCG/ML) AMOXICILLIN/CLAVULAN RESISTANT AMPICILLIN RESISTANT AMPICILLIN/SULBACTAM RESISTANT CEFAZOLIN RESISTANT CEFEPIME SUSCEPTIBLE CEFTRIAXONE RESISTANT CIPROFLOXACIN SUSCEPTIBLE ERTAPENEM SUSCEPTIBLE GENTAMICIN SUSCEPTIBLE LEVOFLOXACIN SUSCEPTIBLE MEROPENEM SUSCEPTIBLE PIPERACILLIN/TAZOBAC SUSCEPTIBLE TETRACYCLINE SUSCEPTIBLE TRIMETH/SULFAMETHOX SUSCEPTIBLE ORGANISM 1+ PROTEUS MIRABILIS This isolate was identified using Maldi-TOF system These AST results were performed on the Microscan ID and AST system METHOD MIN. INHIB. CONC. (MCG/ML) AMOXICILLIN/CLAVULAN SUSCEPTIBLE AMPICILLIN SUSCEPTIBLE AMPICILLIN/SULBACTAM INTERMEDIATE CEFAZOLIN SUSCEPTIBLE CEFEPIME SUSCEPTIBLE CEFTRIAXONE SUSCEPTIBLE CIPROFLOXACIN SUSCEPTIBLE ERTAPENEM SUSCEPTIBLE GENTAMICIN SUSCEPTIBLE LEVOFLOXACIN SUSCEPTIBLE MEROPENEM SUSCEPTIBLE PIPERACILLIN/TAZOBAC SUSCEPTIBLE TETRACYCLINE RESISTANT TRIMETH/SULFAMETHOX SUSCEPTIBLE TEST:Deep Wound Culture STATUS:Auth (Verified) BODY SITE: SOURCE:SWAB1 COLLECTED DATE/TIME:10/20/22 8:44 AM Deep Wound Culture SPECIMEN DESCRIPTION : SWAB STERNAL WOUND SPECIAL REQUESTS : NONE GRAM STAIN : 2+ RBC'S 1+ POLYMORPHONUCLEAR LEUKOCYTES NO ORGANISMS SEEN CULTURE : 1+ KLEBSIELLA (FORMERLY ENTEROBACTER) AEROGENES Due to potential resistance which can develop on therapy, monotherapy with a 3rd-generation cephalosporin (ceftriaxone, ceftazidime, cefpodoxime, cefixime) is not recommended to treat this organism. This isolate was identified using Maldi-TOF system For identification and susceptibility results, refer to wound culture accession. [id number] REPORT STATUS : FINAL 10/22/2022 TEST:Fungal Culture, Non-Respiratory STATUS:Unauthenticated BODY SITE: SOURCE:SWAB1 COLLECTED DATE/TIME:10/20/22 8:44 AM Fungal Culture, Non-Respiratory SPECIMEN DESCRIPTION : SWAB STERNAL WOUND SPECIAL REQUESTS : NONE DIRECT EXAM : NO FUNGAL ELEMENTS OBSERVED CULTURE : NO FUNGI ISOLATED AFTER 2 DAYS REPORT STATUS : PRELIMINARY REPORT TEST:Fungal Culture, Non-Respiratory STATUS:Unauthenticated BODY SITE: SOURCE:TISSUE1 COLLECTED DATE/TIME:10/20/22 8:44 AM Fungal Culture, Non-Respiratory SPECIMEN DESCRIPTION : TISSUE STERNAL WOUND SPECIAL REQUESTS : NONE DIRECT EXAM : NO FUNGAL ELEMENTS OBSERVED CULTURE : NO FUNGI ISOLATED AFTER 2 DAYS REPORT STATUS : PRELIMINARY REPORT TEST:Blood Culture STATUS:Auth (Verified) BODY SITE: SOURCE:Blood COLLECTED DATE/TIME:10/19/22 5:13 PM Blood Culture SPECIMEN DESCRIPTION : BLOOD RAC SPECIAL REQUESTS : NONE CULTURE : NO GROWTH 5 DAYS. REPORT STATUS : FINAL 10/24/2022 TEST:Blood Culture, Second Order STATUS:Auth (Verified) BODY SITE: SOURCE:Blood COLLECTED DATE/TIME:10/19/22 5:13 PM Blood Culture, Second Order SPECIMEN DESCRIPTION : BLOOD LAC SPECIAL REQUESTS : NONE CULTURE : NO GROWTH 5 DAYS. REPORT STATUS : FINAL 10/24/2022 Radiology Reports * Exam Date Time Procedure Performing Provider Status 10/21/22 9:38 AM US Spleen Forde Miladys; Auth (Verified) Notes: (US Spleen) Reason For Exam: anemia;Other: RESULT: US Spleen US Spleen Reason: Other:; anemia; Clinical Question(s): Other:; splenomegaly; Order Comment: 10 20 2022 17:15:31 EDT - paged, ? spleen only? MAT COMPARISON: None available. FINDINGS: Spleen size: 7.6 x 2.9 cm. Morphology: Normal shape and echotexture. No focal lesions. IMPRESSION: Normal spleen. WSN: [id number] Ordering Physician: Quang Mayberry Dictated By: Ramiro Evans MD Dictated Date/Time: 10/21/22 10:00 a Reviewed By: Ramiro Evans MD Signed By: Ramiro Evans MD Signed Date/Time: 10/21/22 10:00 am Transcribed By: CARON Transcribed Date/Time: 10/21/22 9:59 am * Exam Date Time Procedure Performing Provider Status 10/19/22 9:[address] Chest W/O Contrast Almaz Bunn; Au th (Verified) Notes: (CT Chest W/O Contrast) Reason For Exam: sternal wound dehiscence;Other: RESULT: CT Chest W/O Contrast CT Chest W/O Contrast INDICATION: Reason: Other:; sternal wound dehiscence; Clinical Question(s): Other:; sternal osteomyelitis; Order Comment: TECHNIQUE: Helical CT scan of the chest without IV contrast, formatted in 3 planes. Weight-based protocol was performed using automatic exposure control. CTDIvol Body: 14.04 mGy, DLP Body: 520 mGy*cm. COMPARISON: 09/04/2022. FINDINGS: Computer Assembler view findings, lines and tubes: None. Trachea and airways: Patent without evidence of tracheal or endobronchial lesion. Lungs and pleura: In the lateral right upper lung lobe there is a 1 mm peripheral nodule in the anterior lateral right upper lung lobe there is a 4 mm nodule. There are small bilateral pleural effusions, left larger than the right, significantly decreased in size compared to the prior exam. Mediastinum and wei: No mass or hematoma. No mediastinal or hilar lymphadenopathy. No esophageal abnormality. There are postsurgical changes. Heart: Heart is normal in size. Trace pericardial fluid without nick effusion. Severe coronary artery calcification. Aorta: Moderate vascular calcification but no aneurysm. Pulmonary arteries: Normal caliber. Chest wall soft tissues: At midline in the anterior chest wall there is a linear skin defect with associated subcutaneous fat stranding. There is a stable 1 cm subcutaneous calcified nodule in the posterior chest wall which remains unchanged when compared to a CT scan performed on 08/16/2022. Diaphragm: Intact. Upper abdomen: Incompletely images bilateral hypodense renal lesions which demonstrate fluid attenuation compatible with cysts but not fully characterized. There is a 1.9 cm hypodense left adrenal nodule. Bones: Status post sternotomy with there is mild distraction at the sternotomy site within the sternum superiorly. IMPRESSION: At midline in the anterior chest wall there is a linear skin defect with associated subcutaneous fat stranding. Status post sternotomy with there is mild distraction at the sternotomy site within the sternum superiorly. Bilateral small pleural effusions which are decreased in size compared to the prior exam. 2 right lung nodules ranging in size from 1 to 4 mm. Recommendations are for six-month follow-up. WSN: [id number] Ordering Physician: Raymundo Marcus Dictated By: Carmen Graham MD Dictated Date/Time: 10/19/22 10:55 p Reviewed By: Carmen Graham MD Signed By: Carmen Graham MD Signed Date/Time: 10/19/22 10:55 pm Transcribed By: CARON Transcribed Date/Time: 10/19/22 10:40 pm Vital Signs Most recent to oldest [Reference Range]: 1 2 3 Height 168 cm (10/24/22 11:53 AM) 168 cm (10/24/22 8:17 AM) 168 cm (10/24/22 3:00 AM) Weight 75.4 kg (10/23/22 6:36 AM) 75.4 kg (10/23/22 5:39 AM) 76.1 kg (10/22/22 4:04 AM) Oxygen Saturation [94-100 %] 94 % (10/24/22 11:53 AM) 95 % (10/24/22 8:17 AM) 94 % (10/24/22 3:00 AM) Pulse Rate [55-90 bpm] 61 bpm (10/24/22 11:53 AM) 62 bpm (10/24/22 8:59 AM) 62 bpm (10/24/22 8:17 AM) Body Mass Index [18.5-24.99 kg/m2] 26.71 kg/m2 *H* (10/23/22 6:36 AM) 26.5 kg/m2 *H* (10/20/22 6:40 AM) 26.54 kg/m2 *H* (10/19/22 4:16 PM) Blood Pressure [90-138/55-84 mm Hg] 111/53mm Hg (10/24/22 11:53 AM) 108/57mm Hg (10/24/22 8:59 AM) 108/57mm Hg (10/24/22 8:17 AM) Respiratory Rate [16-30 br/min] 18 br/min (10/24/22 11:53 AM) 18 br/min (10/24/22 8:17 AM) 18 br/min (10/24/22 3:00 AM) Temperature [96.8-100.4 DegF] 98.2 DegF (10/24/22 11:53 AM) 98.8 DegF (10/24/22 8:17 AM) 98.6 DegF (10/24/22 3:00 AM) Liters per Minute 2 L/min (10/23/22 8:15 AM) 2 L/min (10/23/22 8:00 AM) 2 L/min (10/23/22 7:45 AM) Mode of Delivery (Oxygen) Room air (10/24/22 11:53 AM) Room air (10/24/22 8:17 AM) Room air (10/24/22 3:00 AM) Blood pressure sites Arm, left (10/24/22 11:53 AM) Arm, right (10/24/22 8:17 AM) Arm, left (10/24/22 3:00 AM) Temperature Route Oral (10/24/22 11:53 AM) Oral (10/24/22 8:17 AM) Oral (10/24/22 3:00 AM) Dry Weight 74.9 kg (10/19/22 4:16 PM) Weight Obtained Via Bed scale (10/23/22 5:39 AM) Bed scale (10/22/22 4:04 AM) Bed scale (10/19/22 4:34 PM) Admission evaluation note * Shawanda JACOBSON, Quang Abreu: PERFORM, MODIFY Event Display: Admission Note Authored Date: [id number] Patient: ??LATOSHA BERNARD ? Age:??77 Years?Sex:??Female?:??1945?? Subjective 77 year old female who underwent AVR / triple coronary artery bypass grafting on 08/28/[address] Chad Marques for aortic stenosis and coronary artery occlusive disease prolonged hospitalization then d/c rehab on 09/24/22, She has since doing well. Improved mobility and endurance since rehab. Patient has been doing well and pain is much more tolerable than initially after discharge.?? Seen for post opvisit on 10/[address] Fu at that time the sternum was stable. ??The sternal incision??was??without erythema or drainage, some superficial epithelial dehiscence with scabbing, most notably inferior portion, dressed.?The chest tube sites are healing well. ??The saphenous vein harvest site is well approximated without erythema or drainage. She was discharged from rehab 1 week ago. ?? Admitted from the office with draining sternal wound. Review of Systems Constitutional: Denies fevers, chills, weight loss Eyes: No vision problems or changes CV: No CP, palpitations, dyspnea on exertion or when sleeping/lying flat Respiratory: No SOB, cough GI: No N/V, abdominal pain, diarrhea : No difficulty with urination, pain or burning MSK: No weakness Neurological: No numbness, tingling in the extremities All other systems are negative Allergies Allergies ?(Active and Proposed Allergies Only) amoxicillin? (Severity: Unknown severity, Onset: Unknown) ?Reactions: Hives ? Past Medical History Active Problems??(7) Acute myocardial infarction of anterior wall Atrial fibrillation with RVR Cardiogenic shock Diabetes mellitus - adult onset Heart failure with reduced ejection fraction Hypertension Right heart failure due to left heart failure ? Past Surgical History No surgery history documented. ? Social History No social history documented. ? Objective Measurements?? Height: 168 cm (10/19/22) Weight: 74.9 kg (10/19/22) Dry Weight: 74.9 kg (10/19/22) Body Mass Index:??26.54 kg/m2??High (10/19/22) ? Vital Signs?? Temperature: 98.5 DegF (10/19/22 16:16:00) Temperature Route: Oral (10/19/22 16:16:00) Pulse Rate: 60 bpm (10/19/22 16:16:00) Respiratory Rate: 16 br/min (10/19/22 16:16:00) Systolic Blood Pressure: 90 mm Hg (10/19/22 16:16:00) Diastolic Blood Pressure: 63 mm Hg (10/19/22 16:16:00) Blood pressure sites: Arm, right (10/19/22 16:16:00) Mean Arterial Pressure: 72 mm Hg (10/19/22 16:16:00) Pulse Pressure: 27 mm Hg (10/19/22 16:16:00) Oxygen Saturation: 96 % (10/19/22 16:16:00) Mode of Delivery (Oxygen): Room air (10/19/22 16:16:00) Early Warning Score: 1 (10/19/22 17:26:27) ? Intake/Output? No Data Available ? Physical Exam General Appearance: Alert, no acute distress Neurologic: AAox3 HEENT: PERRLA Cardiac: Rate and rhythm regular. ??S1, S2 heard.? Extremities:No edema appreciated bilaterally Vascular: Palpable radial, pedal pulses bilaterally. ?? Respiratory: Lung sounds clear. No crackles, wheezing. Respiratory effort is unlabored. On room air Gastrointestinal: Abdomen is soft, nontender, nondistended. ??+Bowel sounds in all 4 quadrants. Genitourinary: voiding independently Integumentary: Sternal incision with dark scabing. [place] there is serosang drainge with a small amount of purulence drainage.?? Musculoskeletal: ??GRESHAM independently. _ Home Medications Acetaminophen (acetaminophen 325 mg oral tablet)?975?Milligram?By Mouth?Every 8 hours apixaban?5?Milligram?By Mouth?2 times a day Aspirin (aspirin 81 mg oral capsule)?1?capsule?81?Milligram?By Mouth?Daily Atorvastatin (atorvastatin 40 mg oral tablet)?80?Milligram?By Mouth?Daily at bedtime Cholecalciferol (Vitamin D3 50 mcg (2000 intl units) oral tablet, chewable)?1?tab(s)?50?Microgram?By Mouth?Daily Digoxin (digoxin 0.125 mg oral tablet)?0.125?Milligram?By Mouth?Every 48 hours Docusate-Senna (Docusate/Senna Tablet)?2?tab(s)?By Mouth?Daily Emollients, Topical (Vashe Topical Solution)?475?Milliliter?Topically?Every 12 hours Epoetin Rodrigo?2?Milliliter?20,000?unit(s)?Subcutaneous Injection?Every week Ferrous Sulfate (ferrous sulfate 325 mg oral enteric coated tablet)?See Instructions?325 mg By Mouth MWF Folic Acid?Daily Lidocaine Topical (lidocaine 5% topical [...] (Flomax 0.4 mg oral capsule)?0.4?Milligram?By Mouth?Daily ? Inpatient Medications Medications (22) Active SCHEDULED: (16) Acetaminophen 325 mg Tablet (Acetaminophen Tablet) ??975 mg, By Mouth, Once Aspirin 81 mg EC Tablet (Aspirin Tablet) ??81 mg, By Mouth, Daily Atorvastatin 80 mg Tablet (atorvastatin 80 mg oral tablet) ??80 mg, By Mouth, Daily at bedtime CeFAZolin 2 Gm Inj (ceFAZolin Inj) ??2 Gm, IV Push, Once Digoxin 0.125 mg Tablet (digoxin 0.125 mg oral tablet) ??0.125 mg, By Mouth, Every 48 hours Enoxaparin 40 mg Inj (Enoxaparin Inj) ??40 mg 0.4 mL, Subcutaneous Injection, Daily Ferrous Sulfate 325 mg EC Tablet (ferrous sulfate 325 mg oral enteric coated tablet) ??325 mg, By Mouth, Every Saturday, Saturday and Saturday Folic Acid 1 mg Tablet (folic acid 1 mg oral tablet) ??1 mg, By Mouth, Daily Gabapentin 300 mg Capsule (Gabapentin Capsule) ??600 mg, By Mouth, Once Metoprolol 25 mg XL Tablet (Toprol XL 25 mg oral tablet, extended release) ??25 mg, By Mouth, Daily Multivitamin Therapeutic / Minerals Tablet (Multivit Therapeutic/Minerals Tablet) ??1 tablet, By Mouth, Daily NaCl 0.9% Flush 3ml (Flush NaCl 0.9%) ??3 mL, IV Push, Every 8 hours Senna 8.6 mg / Docusate 50 mg tablet (Docusate/Senna Tablet) ??2 tablet, By Mouth, Daily Sertraline 25 mg Tablet (sertraline 25 mg oral tablet) ??25 mg, By Mouth, Daily Vashe Wound Care Emollient/Cleanser (Vashe Topical Solution) ??475 mL, Topically, Every 12 hours Vitamin B Complex Tablet (Vit B Complex Tablet) ??1 tablet, By Mouth, Daily CONTINUOUS: (0) PRN: (6) Acetaminophen 325 mg Tablet (Acetaminophen Tablet) ??975 mg, By Mouth, Every 6 hours Al hydroxide/Mg hydroxide/simethicone 200 mg-200 mg-20 mg/5 mL Susp UD (Maalox Plus Liquid) ??15 mL, By Mouth, Every 6 hours NaCl 0.9% Flush 3ml (Flush NaCl 0.9%) ??3 mL, IV Push, Every 8 hours Ondansetron 2mg/mL Inj (2mL Vial) (Ondansetron Inj) ??4 mg, IV Push, Every 6 hours Potassium Chloride 10mEq ER Tablet (Potassium Chloride Tablet) ??40 mEq, By Mouth, Daily Vashe Wound Care Emollient/Cleanser (Vashe Topical Solution) ??475 mL, Topically, Every 6 hours ? Results Recent Labs CHEM GENERAL Glucose, POC 122 mg/dL (High)?? 10/19/2022 17:24 ?? VIROLOGY COVID-19 PCR Specimen Source NASAL ()?? 10/19/2022 16:15 COVID-19 PCR Result NEGATIVE ()?? 10/19/2022 16:15 ? Microbiology ?? COVID-19 (2019 Novel Coronavirus) PCR?? Completed?? Source: Nasal Body Site: Nose Collected Dt/Tm: 10/19/2022 16:34 Last Updated Dt/Tm: 10/19/2022 17:34 ? Assessment/Plan Diagnoses Sternal wound dehiscence ??(T81.32XA) 77 year old female who underwent AVR / triple coronary artery bypass grafting on 08/28/[address] Chad Marques for aortic stenosis and coronary artery occlusive disease prolonged hospitalization then d/c rehab on 09/24/22 (POD 27), She has since doing well. Improved mobility and endurance since rehab. Patient has been doing well and pain is much more tolerable than initially after discharge.?? Seen for post op visit on 10/[address] Fu at that time the sternum was stable. ??The sternal incision??was??without erythema or drainage, some superficial epithelial dehiscence with scabbing, most notably inferior portion, dressed.?The chest tube sites are healing well. ??The saphenous vein harvest site is well approximated without erythema or drainage. She was discharged from rehab 1 week ago. ?? Admitted from the office with draining sternal wound. ?? SURGEON: Chad Marques M.D.? Sourcer: Dr. Stone ? Neuro tylenol as needed for pain ? Cardiovascular ??CADs/p CABGx3, AVR-T ??Hypotension secondary to vasoplegia RH failure 2nd to LH failure- resolved ??Acute Heart Failure w/ Reduced Ejection Fraction 25% due to Acute distal anterior MO post CT surgery.?? Sternal wound dehisence -CT ordered Apixaban on hold??for surgery GDMT??on hold pending labs and to be reassessed tomorrow. ?? PULM No current issues Maintain O2 sat >92% Room air IS use ? GI cardiac diet NPO??after midnight for anticipated washout ? Renal Voiding without difficulty Labs pending ? Heme Iron daily for anemia Epoetin weekly will need to find out when her last dose was ?? Skin Sternal incision with dark scabing. [place] there is serosang drainge with a small amount of purulence drainage.? ID: Cultures sent CT chest pending ? Endo ??DMII A1C 7.6 Will add Lispro ISS/POC until BIDs recs in place. BIDS consulted ?? VTE- lovenox, SCD, TEDS ? Dispo:??Cardiac rehab and case management consulted??for discharge planning ?? Plan discussed with Dr Marques via phone ? * Shelli JORDAN, Chad Palma: PERFORM Event Display: Admission Note Authored Date: [id number] ? H&P reviewed.?? The patient was admitted with wound dehiscence without drainage and no evidence of infection. ?? I admitted this patient from clinic. There was no drainage ever from the wound. There was no evidence for infection, no pain,??no fever,no ??induration, no erythemia, no drainage. There was dehiscence of the skin edges with apparent fat necrosis beneath and poor healing all along the skin edges. see photo. ?? She will go for debridement. ?? Chad Marques MD Cardiac Surgeon [facility] office: [phone] pager: [phone] ? EKG study * Event Display: ECG 12-Lead Authored Date: Please click on pdf link to open report * Event Display: ECG 12-Lead Authored Date: Ventricular Rate: 59 BPM Atrial Rate: 59 BPM P-R Interval: 186 ms QRS Duration: 130 ms Q-T Interval: 404 ms QTC Calculation(Bazett): 399 ms P [place]: 18 degrees R [place]: -12 degrees T [place]: 160 degrees Sinus bradycardia Left bundle branch block Abnormal ECG When compared with ECG of 07-SEP-2022 11:58, No significant change was found Confirmed by BELEN ESCOBAR MD ([id number]) on 10/20/2022 2:53:04 PM [place]: BELEN ESCOBAR MD Cardiology * Event Display: Cardiac Rhythm Strips Authored Date: * Event Display: Cardiac Rhythm Strips Authored Date: Hospital Progress note * Moni Cunha RN: VERIFY, PERFORM, SIGN Event Display: Progress Note Hospital Authored Date: [id number] Patient: LATOSHA BERNARD Age: 77 years Sex: Female : 1945 Associated Diagnoses: None Author: Moni Cunha RN Findings Problem Related to Alteration in Cardiac Function (new) : Alteration in Cardiac Function/new 10/23/2022 9:00 EDT Alteration in Cardiac Status Related to Cardiac Surgery Goals & Outcomes, Cardiac Status Pt will resume/maintain adequate cardiac output, Pt will resume/maintain adequate hemodynamic status, Pt will resume/maintain adequate respiratory function, Pt will resume/maintain intact neuro function, Pt will maintain adequate GI/ function appropriate for pt Cardiac Interventions Implemented Assess/monitor cardiac status, Assess/monitor neuro status, Assess/monitor respiratory status Goals/Interventions, Cardiac Yes Cardiac, Problem Start 10/19/2022 17:49 Reviewed Plan with, Cardiac Status Patient Patient Progression, Cardiac Status Patient progressing according to plan . Evaluation Pt returned from OR s/p sternal wound vac change. Pt drowsy but arousable oriented X3. SB/SR 50-60's on tele. Denies any surigcal pain, SOB or dizziness. MS wound vac @ 125 mmhg per orders.Cefepime given per orders. Plan for possible d/c home tomorrow. See biophysical, CIS and tele for full assessments. . Discharge Information Case Management Discharge Plan : Case Management Discharge Plan Data 10/23/2022 16:16 EDT Discharge Level of Care at Discharge Homehealth/VNA Discharge VNA/Hospice/Home Care [facility] Discharge [employer] [phone] Name of Agency #1 [facility] Name of Agency #1 [facility] Service Categories #1 Physical Therapy, Jail Service Comments #1 The nurse will call before they come to set up a time to see you. If they do not call you within 48 hours please call the main VNA number * Riley AYALA, Shira Elizalde: PERFORM Event Display: Progress Note Hospital Authored Date: [id number] Patient: ??LATOSHA BERNARD ? Age:??77 Years?Sex:??Female?:??1945?? Subjective ?? HD??4 sternal dehis POD??3? excisional debridement of skin and subcutaneous tissue using knife and scissors Fat necrosis and failure to heal of sternotomy wound. . ??Placement of wound VAC. POD 0 change of wound vac under general anesthesia ?? NO acute events overnight ?? Went to OR today change of wound vac under general anesthesia will discharge home in 24 hrs ID consult placed started on Cefepime, will discharge home on Levaquin 500 mg BID through 11/05?? restarted Eliquis ? Review of Systems ?? doing well post op. no fever no chills denies diarrhea, no cp, no SOB wound vac good seal denies rash/itchiness, laxmi po ?? Allergies Allergies ?(Active and Proposed Allergies Only) amoxicillin? (Severity: Unknown severity, Onset: Unknown) ?Reactions: Hives ? Past Medical History Active Problems??(7) Acute myocardial infarction of anterior wall Atrial fibrillation with RVR Cardiogenic shock Diabetes mellitus - adult onset Heart failure with reduced ejection fraction Hypertension Right heart failure due to left heart failure ? Past Surgical History No surgery history documented. ? Objective Measurements?? Height: 168 cm (10/23/22) Weight: 75.4 kg (10/23/22) Dry Weight: 74.9 kg (10/19/22) Body Mass Index:??26.71 kg/m2??High (10/23/22) ? Vital Signs?? Temperature: 97.8 DegF (10/23/22 11:00:00) Temperature Route: Oral (10/23/22 11:00:00) Pulse Rate: 57 bpm (10/23/22 11:00:00) Heart Rate Monitored: 56 bpm (10/23/22 08:15:00) Respiratory Rate: 16 br/min (10/23/22 11:00:00) Systolic Blood Pressure: 108 mm Hg (10/23/22 11:00:00) Diastolic Blood Pressure:??48 mm Hg??Low (10/23/22 11:00:00) Blood pressure sites: Arm, left (10/23/22 11:00:00) Mean Arterial Pressure: 84 mm Hg (10/23/22 08:47:00) Pulse Pressure: 60 mm Hg (10/23/22 11:00:00) Oxygen Saturation:??87 %??Low (10/23/22 11:00:00) Liters per Minute: 2 L/min (10/23/22 08:15:00) Mode of Delivery (Oxygen): Room air (10/23/22 11:00:00) Early Warning Score: 5 (10/23/22 12:07:20) ? Perfusion Assessment AV fistula: No (10/23/22 07:45:00) Capillary Refill: < 3 seconds (10/23/22 07:45:00) Cardiac Rhythm: Normal sinus rhythm, Sinus bradycardia (10/23/22 10:30:00) Cardiovascular: WNL except (10/23/22 10:30:00) Cardiovascular Assessment Status: Unchanged from recorder's assessment (10/23/22 08:15:00) Cardiovascular Symptoms: None (10/23/22 06:36:00) Dorsalis Pedis Pulse, Left: Weak (10/23/22 07:45:00) Dorsalis Pedis Pulse, Right: Weak (10/23/22 07:45:00) Heart Rhythm: Regular (10/23/22 07:45:00) Nail Bed Color, Fingers: [place] (10/23/22 07:45:00) Nail Bed Color, Toes: [place] (10/23/22 07:45:00) Pacemaker: No (10/23/22 07:45:00) Radial Pulse, Left: Normal (10/23/22 07:45:00) Radial Pulse, Right: Normal (10/23/22 07:45:00) Skin Temperature Lower Extremities: Warm (10/23/22 06:36:00) Skin Temperature Upper Extremities: Warm (10/23/22 06:36:00) ? Pain Scores 1 - 10 Pain Scale Score: 0 (06:36) ? Ventilator Settings?? No qualifying data available. ? Intake/Output? 10/19 16:29 10/23 07:00 10/22 07:00 10/21 07:00 10/20 07:00 ?? 10/23 12:19 10/23 12:19 10/23 06:59 10/22 06:59 10/21 06:59 Intake ? 2337 ?0 ?930 ? 60 ?960 Output ? 2770 ?0 ?400 ? 1070 ?500 Net Total ? -433 ?0 ?530 ?-1010 ?460 ? Urine Count ?4 ?0 ?3 ?0 ?1 ? Physical Exam Neuro: alert nonfocal Pulm Lungs clear, diminished bases Card S1, S2, NSR?? Abd Soft non tender, non distended, BS + Ext palpable pulses, ??trace edema MUSC: moving 4 x 4?? Surgical Wounds: Chest?? wound vac in place, good seal ?? _ Home Medications Acetaminophen (acetaminophen 325 mg oral tablet)?975?Milligram?By Mouth?Every 8 hours apixaban?5?Milligram?By Mouth?2 times a day Aspirin (aspirin 81 mg oral capsule)?1?capsule?81?Milligram?By Mouth?Daily Atorvastatin (atorvastatin 40 mg oral tablet)?80?Milligram?By Mouth?Daily at bedtime Cholecalciferol (Vitamin D3 50 mcg (2000 intl units) oral tablet, chewable)?1?tab(s)?50?Microgram?By Mouth?Daily Digoxin (digoxin 0.125 mg oral tablet)?0.125?Milligram?By Mouth?Every 48 hours Docusate-Senna (Docusate/Senna Tablet)?2?tab(s)?By Mouth?Daily Emollients, Topical (Vashe Topical Solution)?475?Milliliter?Topically?Every 12 hours Epoetin Rodrigo?2?Milliliter?20,000?unit(s)?Subcutaneous Injection?Every week Ferrous Sulfate (ferrous sulfate 325 mg oral enteric coated tablet)?See Instructions?325 mg By Mouth MWF Folic Acid?Daily Lidocaine Topical (lidocaine 5% topical [...] (Flomax 0.4 mg oral capsule)?0.4?Milligram?By Mouth?Daily ? Inpatient Medications Medications (25) Active SCHEDULED: (16) Apixaban 5 mg Tablet (Apixaban Tablet) ??5 mg, By Mouth, 2 times a day Aspirin 81 mg EC Tablet (Aspirin Tablet) ??81 mg, By Mouth, Daily Atorvastatin 80 mg Tablet (atorvastatin 80 mg oral tablet) ??80 mg, By Mouth, Daily at bedtime Cefepime 2 Gm Inj (Cefepime Extended IVPB) ??2,000 mg, IVPB, Every 12 hours Digoxin 0.125 mg Tablet (digoxin 0.125 mg oral tablet) ??0.125 mg, By Mouth, Every 48 hours Ferrous Sulfate 325 mg EC Tablet (ferrous sulfate 325 mg oral enteric coated tablet) ??325 mg, By Mouth, Every Saturday, Saturday and Saturday Folic Acid 1 mg Tablet (folic acid 1 mg oral tablet) ??1 mg, By Mouth, Daily Folic Acid 1 mg Tablet (folic acid 1 mg oral tablet) ??1 mg, By Mouth, Daily Insulin Lispro 100 units/mL Inj (3mL) (Insulin LISPRO Sliding Scale) ??2-10 units, Subcutaneous Injection, 3 times a day before meals Metoprolol 25 mg XL Tablet (Toprol XL 25 mg oral tablet, extended release) ??25 mg, By Mouth, Daily Multivitamin Therapeutic / Minerals Tablet (Multivit Therapeutic/Minerals Tablet) ??1 tablet, By Mouth, Daily NaCl 0.9% Flush 3ml (Flush NaCl 0.9%) ??3 mL, IV Push, Every 8 hours Senna 8.6 mg / Docusate 50 mg tablet (Docusate/Senna Tablet) ??2 tablet, By Mouth, Daily Sertraline 25 mg Tablet (sertraline 25 mg oral tablet) ??25 mg, By Mouth, Daily Vashe Wound Care Emollient/Cleanser (Vashe Topical Solution) ??475 mL, Topically, Every 12 hours Vitamin B Complex Tablet (Vit B Complex Tablet) ??1 tablet, By Mouth, Daily CONTINUOUS: (0) PRN: (9) Acetaminophen 325 mg Tablet (Acetaminophen Tablet) ??975 mg, By Mouth, Every 6 hours Al hydroxide/Mg hydroxide/simethicone 200 mg-200 mg-20 mg/5 mL Susp UD (Maalox Plus Liquid) ??15 mL, By Mouth, Every 6 hours Magnesium Hydroxide 8% Susp UD (Milk of Magnesia Liquid) ??30 mL, By Mouth, Every 12 hours NaCl 0.9% Flush 3ml (Flush NaCl 0.9%) ??3 mL, IV Push, Every 8 hours nalOXONE ??400mcg/mL Inj (nalOXONE Inj) ??0.04 mg 0.1 mL, IV Push, Every 5 minutes Ondansetron 2mg/mL Inj (2mL Vial) (Ondansetron Inj) ??4 mg, IV Push, Every 6 hours Potassium Chloride 10mEq ER Tablet (Potassium Chloride Tablet) ??40 mEq, By Mouth, Daily TraMADOL 50 mg Tablet (traMADol 50 mg oral tablet) ??50 mg, By Mouth, Every 6 hours Vashe Wound Care Emollient/Cleanser (Vashe Topical Solution) ??475 mL, Topically, Every 6 hours ? 72 Hour Antibiotic History Active Antibiotics Calendar Day Last Administered First Administered Cefepime??2,000 mg, 33.33 mL/hr, IVPB, Every 12 hours ?2 10/23/2022 06:00 10/22/2022 18:27 ? Stopped Antibiotics Stop Date/Time Last Administered First Administered ceFAZolin??2 Gm, IV Push, Every 8 hours 10/22/2022 14:54 10/22/2022 11:02 10/20/2022 18:01 ? Results Recent Labs BLOOD BANK Blood Type O Positive ()?? 10/22/2022 20:13 Antibody Screen Negative ()?? 10/22/2022 20:13 RBC Unit ID [id number] ()?? 10/23/2022 01:41 RBC Available IS ()?? 10/23/2022 01:41 ?? BLOOD COUNT & DIFF WBC 7.1 k/mm3 ()?? 10/23/2022 06:14 RBC 2.62 m/mm3 (Low)?? 10/23/2022 06:14 Hgb 7.9 Gm/dL (Low)?? 10/23/2022 06:14 Hct 27.1 % (Low)?? 10/23/2022 06:14 MCV 103.4 femtoliters (High)?? 10/23/2022 06:14 MCH 30.2 pg ()?? 10/23/2022 06:14 MCHC 29.2 g/dL (Low)?? 10/23/2022 06:14 Platelet Count 279 k/mm3 ()?? 10/23/2022 06:14 RDW-SD 71.7 femtoliters (High)?? 10/23/2022 06:14 MPV 10.1 femtoliters ()?? 10/23/2022 06:14 Nucleated RBC (Automated) 0.0 #/100 WBC'S ()?? 10/23/2022 06:14 Abs. NRBC 0.0 k/mm3 ()?? 10/23/2022 06:14 ?? CHEM GENERAL Sodium 139 mmol/L ()?? 10/23/2022 06:14 Potassium 4.4 mmol/L ()?? 10/23/2022 06:14 Chloride 106 mmol/L ()?? 10/23/2022 06:14 Bicarbonate Level 27 mmol/L ()?? 10/23/2022 06:14 Anion Gap 6 ()?? 10/23/2022 06:14 Glucose, POC 196 mg/dL (High)?? 10/23/2022 11:56 BUN 11 mg/dL ()?? 10/23/2022 06:14 Creatinine-Blood 0.9 mg/dL ()?? 10/23/2022 06:14 Estimated GFR Creatinine 65 ML/MIN/1.73 M2 ()?? 10/23/2022 06:14 Magnesium 1.8 mg/dL ()?? 10/23/2022 06:14 Protein, Total 5.2 Gm/dL (Low)?? 10/22/2022 04:16 Albumin 3.0 Gm/dL (Low)?? 10/22/2022 04:16 Alkaline Phosphatase 69 units/L ()?? 10/22/2022 04:16 AST (SGOT) 23 units/L ()?? 10/22/2022 04:16 ALT (SGPT) <5 units/L ()?? 10/22/2022 04:16 Bilirubin, Total 0.2 mg/dL ()?? 10/22/2022 04:16 Bilirubin, Direct <0.2 mg/dL ()?? 10/22/2022 04:16 Bilirubin, Indirect Direct bilirubin is less than the measureable limit. Therefore, indirect mg/dL ()?? 10/22/2022 04:16 ?? URINE OTHER Est Creatinine Clearance 50.84 mL/min ()?? 10/23/2022 06:59 ? Abnormal Labs ?? BLOOD BANK ??Antibody Screen ??Negative () ??10/22/2022 20:13 ??Blood Type ??O Positive () ??10/22/2022 20:13 ? BLOOD COUNT & DIFF ??Abs. NRBC ??0.0 k/mm3 () ??10/23/2022 06:14 ??Hct ??27.1 % (Low) ??10/23/2022 06:14 ??Hgb ??7.9 Gm/dL (Low) ??10/23/2022 06:14 ??MCHC ??29.2 g/dL (Low) ??10/23/2022 06:14 ??MCV ??103.4 femtoliters (High) ??10/23/2022 06:14 ??Nucleated RBC (Automated) ??0.0 #/100 WBC'S () ??10/23/2022 06:14 ??RBC ??2.62 m/mm3 (Low) ??10/23/2022 06:14 ??RDW-SD ??71.7 femtoliters (High) ??10/23/2022 06:14 ? CHEM GENERAL ??Estimated GFR Creatinine ??65 ML/MIN/1.73 M2 () ??10/23/2022 06:14 ??Glucose, POC ??196 mg/dL (High) ??10/23/2022 11:56 ? Note: Critical results are displayed in red. ? Blood Glucose Trend Glucose, POC:??196 mg/dL??High (10/23/22 11:56:00) Glucose, POC:??140 mg/dL??High (10/23/22 08:45:00) Glucose, POC:??120 mg/dL??High (10/23/22 06:21:00) Glucose, POC:??150 mg/dL??High (10/22/22 20:30:00) Glucose, POC:??149 mg/dL??High (10/22/22 17:18:00) ? CBC, CBC w/Diff?? CBC?? WBC: 7.1 k/mm3 (06:14) RBC:??2.62 m/mm3??Low (06:14) Hct:??27.1 %??Low (06:14) RDW-SD:??71.7 femtoliters??High (06:14) Nucleated RBC (Automated): 0 #/100 WBC'S (06:14) Abs. NRBC: 0 k/mm3 (06:14) ? BMP, Mg, and Phos Anion Gap: 6 (06:14) Bicarbonate Level: 27 mmol/L (06:14) BUN: 11 mg/dL (06:14) Chloride: 106 mmol/L (06:14) Creatinine-Blood: 0.9 mg/dL (06:14) Estimated GFR Creatinine: 65 ML/MIN/1.73 M2 (06:14) Magnesium: 1.8 mg/dL (06:14) Potassium: 4.4 mmol/L (06:14) Sodium: 139 mmol/L (06:14) ?? Coagulation Profile?? No qualifying data available. ?? LFT?? No qualifying data available. ?? Urinalysis Est Creatinine Clearance: 50.84 mL/min (06:59) ?? Microbiology ?? COVID-19 (2019 Novel Coronavirus) PCR?? Completed?? Source: Nasal Body Site: Nose Collected Dt/Tm: 10/19/2022 16:34 Last Updated Dt/Tm: 10/19/2022 17:34 ? Blood Gases?? No qualifying data available. ?? Assessment/Plan ?? 77 year old female who underwent AVR / triple coronary artery bypass grafting on 08/28/[address] Chad Marques for aortic stenosis and coronary artery occlusive disease prolonged hospitalization then d/c rehab on 09/24/22 (POD 27), She has since doing well. Improved mobility and endurance since rehab. Patient has been doing well and pain is much more tolerable than initially after discharge. Seen for post op visit on 10/[address] Fu at that time the sternum was stable. The sternal incision was without erythema or drainage, some superficial epithelial dehiscence with scabbing, most notably inferior portion, dressed. The chest tube sites are healing well. The saphenous vein harvest site is well approximated without erythema or drainage. She was discharged from rehab 1 week ago. ?? Admitted from the office with draining sternal wound. ?? SURGEON: Chad Marques M.D. ??Sourcer: Dr. Stone ? Neuro ??Tylenol as needed for pain ? Cardiovascular ?CADs/p CABGx3, AVR-T ?Hypotension secondary to vasoplegia RH failure 2nd to LH failure- resolved ?Acute Heart Failure w/ Reduced Ejection Fraction 25% due to Acute distal anterior MO post CT surgery. ??Sternal wound dehiscence ??OR??10/20 and 10/23 for woud exploration/vac placement ?? PULM ??No current issues ??Maintain O2 sat >92% ??Currently on 2L Fio2- wean as tolerated ??IS use ? GI ??cardiac diet ? Renal ??Voiding without difficulty ??Cr 1.1 BL Stable Cr? Heme ??continue on daily for anemia?? H/H uptrending?? this am ??Heme consulted no indication for additional workup/intervention. US Spleen normal ?? Skin Wound vac on sternum? ID: ??Cultures + Klebsiella/ Proteus resistant to Ancef/ discontinued ID consulted, appreciate recommendations transitioned to??Cefepime??per recommendations Will transition to po Levaquin at discharge 500 mg daily to continue through 11/05? Endo ??DMII A1C 7.6 ??Will add Lispro ISS/POC ??BIDS deferred mgt to primary team ?? VTE- lovenox, SCD, TEDS ? Dispo: anticipate discharge to home in 24 hours will need outpatient??surgery office follow up on Saturday for wound vac??change ?? Plan discussed with Dr Marques am rounds ? Diagnoses Sternal wound dehiscence ??(T81.32XA) ? * Phillip HOOPER, [place]: PERFORM, MODIFY, SIGN, SIGN, VERIFY Event Display: Progress Note Hospital Authored Date: Patient: LATOSHA BERNARD Age: 77 years Sex: Female : 1945 Associated Diagnoses: None Author: Chester Fisher RN Findings Evaluation Plan for sternal debridment and wound vac change 10/23. Pt aware. NPO MN. Cont to monitor. Advised to give metoprolol early. Pt tx to OR, off unit approx 0545. . Note * Juan Prado RN: PERFORM Event Display: Discharge/Transfer Note Hospital Authored Date: Nursing Discharge Note Entered On: 10/24/2022 20:11 EDT Performed On: 10/24/2022 17:00 EDT by Juan Prado RN Nursing Discharge Note 2 Discharge Time : 10/24/2022 17:00 EDT Discharge Level of Care at Discharge : Homehealth/VNA Discharge VNA/Hospice/Home Care(v001) : [facility] [employer] [facility] Discharge [employer](v001) : [employer] [phone] Patient Left Unit Via : Ambulatory Patient Accompanied Off Unit with : Responsible adult DC Instructions Provided & Signed by Pt : Yes Patient Understands D/C Instructions : Yes Patient Instructions Discharge Signed : Yes Did Pt have Specialty Bed or Wound Vac : No Juan Prado RN - 10/24/2022 20:11 EDT * Melinda Villafuerte NP: MODIFY, SIGN, VERIFY, PERFORM Event Display: Discharge/Transfer Note Hospital Authored Date: Patient: LATOSHA EBRNARD Age: 77 years Sex: Female : 1945 Associated Diagnoses: None Author: Melinda Villafuerte NP Discharge Information Chief Complaint/Reason for Admission Sternal wound dehiscence. Principal Discharge Diagnosis Sternal wound dehiscence: Present on admission - yes. Secondary Discharge Diagnoses Atrial fibrillation with RVR: Present on admission - yes. Heart failure with reduced ejection fraction: Present on admission - yes. Hypertension: Present on admission - yes. Sternal wound dehiscence: Present on admission - yes. Patient is aware of diagnosis Procedures DATE: 10/20/2022 PREOPERATIVE DIAGNOSIS: Dehisced sternal wound without infection. POSTOPERATIVE DIAGNOSIS: Dehisced sternal wound without infection. OPERATIVE PROCEDURES: Fat necrosis and failure to heal of sternotomy wound. Operation is excisionaldebridement of skin and subcutaneous tissue using knife and scissors. Placement of wound VAC. SURGEON: Chad Marques M.D. --- DATE: 10/23/2022 PREOPERATIVE DIAGNOSIS: Sternal wound dehiscence. POSTOPERATIVE DIAGNOSIS: Sternal wound dehiscence. OPERATIVE PROCEDURE: Change of wound VAC under general anesthesia. INDICATIONS FOR PROCEDURE: The patient is a 77-year-old, who 3 days earlier underwent a sternal wound debridement, placement of wound VAC. She comes now for change of the wound VAC under anesthesia and possible further sternal debridement. OPERATIVE PROCEDURE: The patient was put under anesthesia and the wound VAC was removed. There is good healthy-looking tissue pretty much throughout the bed of the wound and no further debridement isnecessary. Therefore, a new wound VAC is placed and the patient is reawakened without any debridement. . Attending Consultants Shelli JORDAN, Chad Palma. Adama JACOBSON, Cheryl Haque. Allergies Allergic Reactions (Selected) Severity Not Documented Amoxicillin- Hives. Discharge condition: good Compared to admission: improved Functional Status: ambulatory Discharge Disposition Home care with: VNA. Discharge Summary distribution: Route to attending, referring, and primary care provider. Route to: Santos JORDAN, Prakash. Route to: Shelli JORDAN, Chad Palma. Route to: Adama JACOBSON, Cheryl Haque. Route to: Ramya Hyde RN. Route to: Kira HOOPER, [place]. Discharge Date 10/24/2022 Admission Date 10/19/2022 Code Status Full Resuscitation. Draft of Summary Completed by: Melinda Villafuerte NP. Case Management Discharge Plan : Case Management Discharge Plan Data 10/24/2022 12:13 EDT Discharge Level of Care at Discharge Homehealth/VNA Discharge VNA/Hospice/Home Care [facility] [employer] [employer] [phone] Name of Agency #1 [facility] Categories #1 Physical Therapy, Jail Service Comments #1 A return referral has been made to [facility] to provide nursing and PT services at home. The agency will contact you to set up a visit. Please call [phone] if you do not hear from them within 24 hours of discharge. Agency [facility] Categories #2 Wound Vac Hospital Course 77 year old female who underwent AVR / triple coronary artery bypass grafting on 08/28/[address] Chad Marques for aortic stenosis and coronary artery occlusive disease prolonged hospitalization then d/c rehab on 09/24/22 (POD 27), She has since doing well. Improved mobility and endurance since rehab. Patient has been doing well and pain is much more tolerable than initially after discharge. Seen for post op visit on 10/[address] Fu at that time the sternum was stable. The sternal incision was without erythema or drainage, some superficial epithelial dehiscence with scabbing, most notably inferior portion, dressed. The chest tube sites are healing well. The saphenous vein harvest site is well approximated without erythema or drainage. She was discharged from rehab 1 week ago. Admitted from the office on 10/19/22 with draining sternal wound. SURGEON: Chad Marques M.D. Sourcer: Dr. Stone Issues addressed during the post operative period are summarized below: Neuro Tylenol as needed for pain, continue home sertraline Cardiovascular History of A-fib CADs/p CABGx3, AVR-T Hypotension secondary to vasoplegia RH failure 2nd to LH failure- resolved Acute Heart Failure w/ Reduced Ejection Fraction 25% due to Acute distal anterior [place] post CT surgery. --At discharge continue 25mg XL metoprolol, digoxin 0.125mg daily, ASA 81mg daily, Atorvastatin 80mg daily, Eliquis 5mg BID for History of AF PULM No current issue, on room air GI cardiac diet Renal Voiding without difficulty Cr 1.1 BL Stable Cr Heme continue home treatment for anemia (folic acid, multivitamin, ferrous sulfate, vitamin B, Epoetin injections) H/H uptrending 7.5/25.6 at discharge Heme consulted no indication for additional workup/intervention. US Spleen normal Sternal wound dehiscence/Sternal infection OR 10/20 and 10/23 for wound exploration/vac placement Wound vac on sternum, Next wound vac change in cardiac surgery office on 10/26/22 ID: Sternal wound Cultures - Klebsiella/ Proteus ID consulted, appreciate recommendations transitioned to Cefepime inpatient Will transition to po Levaquin at discharge 500 mg daily to continue through 11/05 Endo DMII A1C 7.6 Resume metformin at home Dispo: home with VNA Plan discussed with Dr Carrasco in am rounds Prescription Given this visit:Prescriptions Levofloxacin (levoFLOXacin 500 mg oral tablet) 1 tablet = 500 mg, By Mouth, Every 24 hours, # 12 tablet, 0 Refills, [facility] [address] [place] [address] [phone] Next Dose: Patient Instructions Given:No qualifying data available Education Given:Wound Check After Surgery: Infection Understanding Wound Separation After Surgery (Wound Dehiscence) Patient Follow-up:Added Follow Up Time Frame Merry Marques End of week the office will call you with an appointment for Saturday10/26/22 for a woundvac change in the office Prakash Graham MD 2 to 5 weeks call and schedule a follow-up with your PCP on discharge Significant Results Results: Vital signs : VITAL SIGNS SECTION 10/24/2022 11:53 EDT Temperature 98.2 DegF Temperature Route Oral Pulse Rate 61 bpm Respiratory Rate 18 br/min Systolic Blood Pressure 111 mm Hg Diastolic Blood Pressure 53 mm Hg L Blood pressure sites Arm, left Mean Arterial Pressure 72 mm Hg Pulse Pressure 58 mm Hg Oxygen Saturation 94 % Mode of Delivery (Oxygen) Room air , Laboratory : LABORATORY 10/24/2022 1:14 EDT WBC 7.0 k/mm3 RBC 2.49 m/mm3 L Hgb 7.5 Gm/dL L Hct 25.6 % L MCV 102.8 femtoliters H MCH 30.1 pg MCHC 29.3 g/dL L Platelet Count 258 k/mm3 RDW-SD 71.0 femtoliters H MPV 9.9 femtoliters Nucleated RBC (Automated) 0.0 #/100 WBC'S Abs. NRBC 0.0 k/mm3 Sodium 140 mmol/L Potassium 4.7 mmol/L Chloride 105 mmol/L Bicarbonate Level 27 mmol/L Anion Gap 8 BUN 12 mg/dL Creatinine-Blood 1.0 mg/dL Estimated GFR Creatinine 61 ML/MIN/1.73 M2 Magnesium 1.9 mg/dL . 35 minutes spent on discharge Discharge Plan Diet/Activity/Patient Education/Follow Up Follow Up with: Prakash Graham MD Within 2 to 5 weeks call and schedule a follow- up with your PCP onswathi ; Chad Marques Within End of week the office will call you with an appointment for Saturday10/26/22 for a wound vac change in the office. Discharge Disposition Discharge: home with VNA. Home Health Face to Face I certify that this patient is under my care and that I or an allowed non- physician practitioner working with me, had a [id number] encounter with the patient on this date: 10/24/2022. The encounter with the patient was in whole, or in part, for the following medical condition, whichis the primary reason for home health care: Sternal wound dehiscence. Nursing: Medication management (reconciliation, teaching), Chronic disease management, Wound care and treatment, Home safety evaluation, The next wound vac change will be in the cardiac surgery office on Saturday10/26/22 (the office will call with an appointment). After this appointment the wound vac change schedule will be determined. The next wound vac change after that will be Monday 11/06, most likley schedule will be Saturday at home wound vac change by VNA and Saturday's in the office with cardiac surgery. - Monitor for fevers - Monitor for increased wound discharge/color Call Cardiac Surgeon Office for signs of infection which include fever, chills, reddness, pus like drainage or wound separation [phone] at any time for questions or concerns . Physical Therapy: Functional mobility training, Home exercise program to strengthen, increase ROM. Homebound due to: Inability to leave home without assistance/supervision, Inability to ambulate without assistance, Pain, decreased strength, and endurance. Physician Signature: Melinda Villafuerte NP . MEDICATION LIST (Selected) Prescriptions Prescribed levoFLOXacin 500 mg oral tablet: 1 tablet = 500 mg, By Mouth, Every 24 hours, # 12 tablet, 0 Refills, Acute 11/05/22 21:00:00 EDT, 10/24/22 13:22:00 EDT, Tablet, [facility], Partial fill upon patient request if the prescription is for a schedule II opioid drug., 168, cm... metFORMIN 500 mg oral tablet: 1 tablet = 500 mg, By Mouth, 2 times a day, Monitor renal function prior to dose change., # 14 tablet, 0 Refills, Maintenance, 09/24/22 12:51:00 EDT, Tablet, [facility], Partial fill upon patient request if the prescription is for a sche... Documented Medications Documented B 100 Complex oral tablet: 1 tablet, By Mouth, Daily, # 100 tablet, 0 Refills, Maintenance, 08/27/22 10:28:00 EDT, Tablet, Partial fill upon patient request if the prescription is for a schedule II opioid drug. Docusate/Senna Tablet: 2 tablet, By Mouth, Daily, 0 Refills, Maintenance, 09/24/22 12:39:00 EDT, Tablet, Partial fill upon patient request if the prescription is for a schedule II opioid drug. Epoetin Rodrigo: 2 mL = 20,000 units, Subcutaneous Injection, Every week, 0 Refills, Maintenance, 09/24/22 12:40:00 EDT, Injection, Partial fill upon patient request if the prescription is for a schedule II opioid drug. Flomax 0.4 mg oral capsule: 0.4 mg, By Mouth, Daily, Refills 0, Maintenance, 09/24/22 12:42:00 EDT,Partial fill upon patient request if the prescription is for a schedule II opioid drug. Folic Acid: Daily, 0 Refills, Maintenance, 08/27/22 10:31:00 EDT, Partial fill upon patient requestif the prescription is for a schedule II opioid drug. LIPOSOMAL VITAMIN C: LIPOSOMAL VITAMIN C, 1, tablet, By Mouth, Daily, Refills 0, Maintenance, 08/27/22 10:30:00 EDT, Supply MiraLax Powder: 1 pack/packet = 17 Gm, By Mouth, Daily, 0 Refills, Maintenance, 09/24/22 12:41:00 EDT, Powder, Partial fill upon patient request if the prescription is for a schedule II opioid drug. Multivit Therapeutic/Minerals Tablet: 1 tablet, By Mouth, Daily, 0 Refills, Maintenance, 09/24/22 12:41:00 EDT, Tablet, Partial fill upon patient request if the prescription is for a schedule II opioid drug. Nystatin Powder: 1 applicator, Topically, 2 times a day, 0 Refills, Maintenance, Powder Remove Patch: Toprol XL 25 mg oral tablet, extended release: 25 mg, By Mouth, Daily, Refills 0, Maintenance, 10/24/22 13:20:00 EDT, Partial fill upon patient request if the prescription is for a schedule II opioiddrug. Vashe Topical Solution: 475 mL, Topically, Every 12 hours, 0 Refills, Maintenance, Solution Vitamin D3 50 mcg (2000 intl units) oral tablet, chewable: 1 tablet = 50 mcg, By Mouth, Daily, 0 Refills, Maintenance, 08/27/22 10:30:00 EDT, Partial fill upon patient request if the prescription is for a schedule II opioid drug. acetaminophen 325 mg oral tablet: 650 mg, 2, tablet, By Mouth, 4 times a day, Refills 0, Maintenance, 09/24/22 12:39:00 EDT, Partial fill upon patient request if the prescription is for a schedule IIopioid drug. apixaban: = 5 mg, By Mouth, 2 times a day, 0 Refills, Maintenance, 09/24/22 12:39:00 EDT, Tablet, Partial fill upon patient request if the prescription is for a schedule II opioid drug. aspirin 81 mg oral capsule: 1 capsule = 81 mg, By Mouth, Daily, 0 Refills, Maintenance, 08/10/22 10:40:00 EDT, Partial fill upon patient request if the prescription is for a schedule II opioid drug. atorvastatin 40 mg oral tablet: = 80 mg, By Mouth, Daily at bedtime, 0 Refills, Maintenance, 09/24/22 12:38:00 EDT, Tablet, Partial fill upon patient request if the prescription is for a schedule II opioid drug. digoxin 0.125 mg oral tablet: 0.125 mg, By Mouth, Every 48 hours, Refills 0, Maintenance, 09/24/22 12:39:00 EDT, Partial fill upon patient request if the prescription is for a schedule II opioid drug. ferrous sulfate 325 mg oral enteric coated tablet: See Instructions, 325 mg By Mouth MWF, Refills 0, Maintenance, 09/24/22 12:40:00 EDT, Instructions Replace Required Details, Partial fill upon patient request if the prescription is for a schedule II opioid drug. lidocaine 5% topical film: Topically, Daily, 0 Refills, Maintenance, 09/24/22 12:40:00 EDT, Patch, Partial fill upon patient request if the prescription is for a schedule II opioid drug. sertraline 25 mg oral tablet: = 25 mg, By Mouth, Daily, 0 Refills, Maintenance, 09/24/22 12:41:00 EDT, Tablet, Partial fill upon patient request if the prescription is for a schedule II opioid drug. Therapies Location: Intergluteal crease Recommendations: 1.) Intergluteal crease: Cleanse with pH balanced cleanser. Pat dry. Apply thin layer of Triad to wound bed. Only pat and dab, no scrub and rub, when soiling occurs. Reapply thin layer PRN after incontinence care. 2.) Consider use of specialty bed/low air loss mattress 3.) Turn and reposition every 2 hours and PRN 4.) Continue incontinence care as well as moisture management; do not utilize Mepilex foam dressingwith incontinence 5.) Do not utilize brief use 6.) Continue to offload bony prominences 7.) Continue to provide optimal nutritional support. Discharge Equipment Wound VAC 3M. * Shyla HOOPER, Belia: PERFORM Event Display: Patient Education/Instruction Authored Date: [id number] Inpatient Adult Discharge Instructions [address] [address] Name: LATOSHA BERNARD : 1945 Visit: 10/19/2022 16:29:00 Current Date: 10/24/2022 15:03 Account: [id number] Inpatient Adult Discharge Instructions We would like [...] and their families. Surveys are administered by [employer]. ?? If further treatment with your primary care physician or another doctor is recommended, it is important for you to keep the appointment. Call your primary care physician or return to the Emergency Department immediately if your condition worsens, fails to improve, or new symptoms develop. If you need to find a doctor, you can call [facility] for a referral at [phone] or toll free at [phone] or log in to [email or web address].. ?? You can view and manage your care through the patient portal or by using a health care alonzo of your choosing. [employer] is a website that allows you to securely view your medical information including your hospital discharge summary, office visit summaries, medications and follow-up visits. You can also request appointments, renew medications, and request access to your medical information using a health care alonzo of your choosing, or just ask a question. You can enroll at [email or web address] or register during your next office visit. You have been discharged from [facility], Patient Care Unit: M6. If you have any questions regarding these instructions after you leave, please call us and we will be happy to assist you. [facility] Your Care Team Attending Physician Shelli JORDAN, Chad Palma Consulting Providers Thomas JORDAN, Renu Lundy MD, Sharita Laughlin Discharging Providers Melinda Villafuerte NP Reason for Admission NON HEALING WOUND Your Diagnosis Sternal wound dehiscence Hypertension Heart failure with reduced ejection fraction Atrial fibrillation with RVR Tests Performed Below is a partial list of the tests performed during your hospitalization. You may have had other tests and procedures not included in this list. Please discuss all test results with your provider. Albumin Level BUN CBC COVID-19 (2019 Novel Coronavirus) PCR Creatinine Direct Valerio Test Electrolytes Folate Level GLUCOSE POC Haptoglobin LDH LFT's Magnesium Level PERIPHERAL BLOOD SMEAR REVIEW?-- Results Pending -- Reticulocyte Ct Type and Screen Urinalysis w/hold for Urine Culture Urine Immunofixation?-- Results Pending -- Urine Protein Electrophoresis?-- Results Pending -- Vitamin B12 Level Chest CT W/O Contrast US Spleen You will be contacted within 72 hours with your results. Primary Care Provider Prakash Graham MD Advance Directive Health Care Proxy on File Yes - Health Care Proxy Discharge Vitals Temperature: 98.2 DegF Height: 168 cm Pulse Rate: 61 bpm Weight: 75.4 kg Respiratory Rate: 18 br/min Body Mass Index:??26.71 kg/m2??High Systolic Blood Pressure: 111 mm Hg Body surface area: 1.88 Diastolic Blood Pressure:??53 mm Hg??Low ?? Oxygen Saturation: 94 % ?? Studies Pending All tests and labs ordered during this hospital stay have been completed unless listed below. Please discuss all pending results with your provider listed above in these instructions. ?? Add On Lab Order BUN Blood Culture Blood Culture #2 CBC Creatinine Electrolytes Fungal Culture, Nonrespiratory (FUNGAL CULT,NON-RESPIRATORY) Magnesium Level Peripheral Blood Smear Review Protein Electrophoresis Ur Random (Urine Protein Electrophoresis) Protein Urine 24 Hr (Urine Protein 24 Hr) RBCs for Surgery Sputum Culture w/ Gram Smear What to do next Instructions From Your Doctor Discharge Orders Scheduled Follow-Up Appointments Saturday 2:00 PM EDT ?? With: Shelli JORDAN, Chad Palma Where: [facility] [address] [place] [address] [address] [place] [address]- Status: Pending You Need to Schedule the Following Appointments Follow Up with??Chad Marques When:??Within End of week Why: the office will call you with an appointment for Saturday10/26/22 for a wound vac change in the office Where: [address] [place] [address] [facility] [place] [address]- Business (1) Follow Up with??Prakash Graham MD When:??Within 2 to 5 weeks Why: call and schedule a follow-up with your PCP on discharge Where: [address] [facility] [place] [address]- [facility] (1) Discharge Medications LATOSHA BERNARD :1945 Visit Date:10/19/2022 Medications: Please continue your medications until treatment is completed or stopped by your provider. Medications not listed below should be discontinued. Discuss any questions related to medications with your provider. What How Much When Instructions Next Dose New Levofloxacin (levoFLOXacin 500 mg oral tablet) 1 tab(s) Oral Every 24 hours Pickup at [facility] Tomorrow morning Changed Acetaminophen (acetaminophen 325 mg oral tablet) 2 tab(s) Oral 4 times a day Tonight at bedtime Changed Metoprolol (Toprol XL 25 mg oral tablet, extended release) 25 Milligram Oral Daily Tomorrow morning Unchanged apixaban 5 Milligram Oral Twice a day Tonight at bedtime Unchanged Aspirin (aspirin 81 mg oral capsule) 1 capsule Oral Daily Tomorrow morning Unchanged Atorvastatin (atorvastatin 40 mg oral tablet) 80 Milligram Oral Daily at Bedtime Tonight at bedtime Unchanged Cholecalciferol (Vitamin D3 50 mcg (2000 intl units) oral tablet, chewable) 1 tab(s) Oral Daily Tomorrow morning Unchanged Digoxin (digoxin 0.125 mg oral tablet) 0.125 Milligram Oral Every 48 hours Tomorrow at 6 PM Unchanged Docusate-Senna (Docusate/ Senna Tablet) 2 tab(s) Oral Daily Tomorrow morning Unchanged Epoetin Rodrigo 20,000 unit(s) Subcutaneous Injection Every week continue home regimen Unchanged Ferrous Sulfate (ferrous sulfate 325 mg oral enteric coated tablet) See instructions 325 mg By Mouth MWF ?? Saturday a.m. Unchanged Folic Acid Daily Tomorrow morning Unchanged Lidocaine Topical (lidocaine 5% topical film) Topically Daily Tomorrow morning Unchanged Metformin (metFORMIN 500 mg oral tablet) 1 tab(s) Oral Twice a day Duration: 7 Days Monitor renal function prior to dose change. ?? continue home regimen Unchanged Miscellaneous Rx (LIPOSOMAL VITAMIN C) 1 tab(s) Oral Daily continue home regimen Unchanged Multivitamin (B 100 Complex oral tablet) 1 tab(s) Oral Daily continue home regimen Unchanged Multivitamin With Minerals (Multivit Therapeutic/ Minerals Tablet) 1 tab(s) Oral Daily continue home regimen Unchanged Nystatin Topical (Nystatin Powder) 1 applicator Topically Twice a day continue home regimen Unchanged Polyethylene Glycol 3350 (MiraLax Powder) 17 gram Oral Daily continue home regimen Unchanged Remove Patch continue home regimen Unchanged Sertraline (sertraline 25 mg oral tablet) 25 Milligram Oral Daily Tomorrow morning Unchanged Tamsulosin (Flomax 0.4 mg oral capsule) 0.4 Milligram Oral Daily Tonight at bedtime Pharmacy Information [facility]: [address] [place], [place] [id number] [phone] Test Results Below is a partial list of the most recent Laboratory test results done prior to this discharge. You may have had other tests and procedures not included in this list. Please discuss all test resultswith your provider. Est Creatinine Clearance - 45.75 mL/min (10/24/2022) RBC Available - PT (10/23/2022) RBC Unit ID - [id number] (10/23/2022) Albumin Level (10/19/2022) ???Albumin - 3.5 Gm/dL BUN (10/24/2022) ???BUN - 12 mg/dL CBC (10/24/2022) ???WBC - 7.0 k/mm3???RBC - 2.49 m/mm3???Hgb - 7.5 Gm/dL???Hct - 25.6 %???MCV - 102.8 femtoliters???MCH - 30.1 pg???MCHC - 29.3 g/dL???Platelet Count - 258 k/mm3???RDW-SD - 71.0 femtoliters???MPV - 9.9 femtoliters???Nucleated RBC (Automated) - 0.0 #/100 WBC'S???Abs. NRBC - 0.0 k/mm3 COVID-19 (2019 Novel Coronavirus) PCR (10/19/2022) ???COVID-19 PCR Specimen Source - NASAL???COVID-19 PCR Result - NEGATIVE Creatinine (10/24/2022) ???Creatinine-Blood - 1.0 mg/dL???Estimated GFR Creatinine - 61 ML/MIN/1.73 M2 Direct Valerio Test (10/21/2022) ???Direct Antiglobulin Test, Anti-IgG - Anti-IgG : Negative???Direct Antiglobulin Test, Anti-C3b,-C3d - Anti-C3d : Negative Electrolytes (10/24/2022) ???Sodium - 140 mmol/L???Potassium - 4.7 mmol/L???Chloride - 105 mmol/L???Bicarbonate Level - 27 mmol/L???Anion Gap - 8 Folate Level (10/20/2022) ???Folic Acid Level - 17.2 ng/mL GLUCOSE POC (10/24/2022) ???Glucose, POC - 257 mg/dL Haptoglobin (10/20/2022) ???Haptoglobin - 77 mg/dL LDH (10/20/2022) ???LDH - 249 units/L LFT's (10/22/2022) ???Protein, Total - 5.2 Gm/dL???Albumin - 3.0 Gm/dL???Alkaline Phosphatase - 69 units/L???AST (SGOT) - 23 units/L? ?ALT (SGPT) - <5 units/L? ?Bilirubin, Total - 0.2 mg/dL? ?Bilirubin, Direct - <0.2 mg/dL???Bilirubin, Indirect - Direct bilirubin is less than the measureable limit. Therefore, indirect Magnesium Level (10/24/2022) ???Magnesium - 1.9 mg/dL Reticulocyte Ct (10/20/2022) ???Retic Count - 6.1 %???Retic Count Corrected - 3.5 %???Retic Production Index - 2.4 % Type and Screen (10/22/2022) ???Blood Type - O Positive???Antibody Screen - Negative Urinalysis w/hold for Urine Culture (10/21/2022) ???Appear/Color, Urine - YELLOW???Specific Wayne, Urine - 1.015???pH, Urine - 5.5???Albumin, Urine - NEGATIVE???Glucose, Urine - NEGATIVE???Ketones, Urine - TRACE???Bilirubin, Urine - NEGATIVE???Hemoglobin, Urine - NEGATIVE???Nitrite, Urine - NEGATIVE???Leukocyte, Urine - 2+???Urobilinogen - NORMAL???WBC's, Urine - 17 /HPF???RBC's, Urine - 1 /HPF???Bacteria - SLIGHT???Squamous Epith - 3 /HPF???Calcium Oxal - SLIGHT???Mucus - SLIGHT???Budding Yeast - SLIGHT???Hold Urine Culture - Testing available 48 hours from time of collection. Vitamin B12 Level (10/20/2022) ???Vitamin B12 Level - 745 pg/mL Allergies (NKA means No Known Allergies) amoxicillin??(Hives) Problems Active Problems??(7) Acute myocardial infarction of anterior wall?? Atrial fibrillation with RVR?? Cardiogenic shock?? Diabetes mellitus - adult onset?? Heart failure with reduced ejection fraction?? Hypertension?? Right heart failure due to left heart failure?? Education Materials Below is the list of Educational Leaflet Providered with your Discharge Instructions. Wound Check After Surgery: Infection?? Understanding Wound Separation After Surgery (Wound Dehiscence)?? Valuables and Belongings I fully understand and agree that [facility] accepts no responsibility for all [...] of Valuable and Belonging List: With patient Date for Pt to Sign Valuables/Belongings: 10/19/22 17:58:00 ?? Other Discharge Information ?? Wound Assessment?? Wound Assessment?? Wound Location I: Coccyx Wound Vac Location: sternum Dressing Intact Wound: Yes Suction Setting Wound: 125 mm Hg Dressing Change Wound: Physician Date/Time of Last Dressing Change Wnd: 10/23/22 08:30:00 ? Case Management Discharge Plan?? Discharge Plan?? Discharge Agency Information?? Discharge Level of Care at Discharge: Homehealth/VNA Name of Agency #1: [facility] Discharge Rx Program: Discharge Prescription Program Service Categories #1: Physical Therapy, Jail Discharge VNA/Hospice/Home Care: [facility] Service Comments #1: A return referral has been made to [facility] to provide nursing andPT services at home. ??The agency will contact you to set up a visit. ??Please call [phone] ??if you do not hear from them within 24 hours of discharge. Discharge Medical Equipment Companies: [employer] [phone] Agency Furnace Loader #2: [employer] ?? Service Categories #2: Wound Vac ?? Pulmonary Rehab Status?? Pulmonary Rehab Discharge Status?? Respiratory Rate: 18 br/min Discharge Medical Equipment Companies: [employer] [phone] ? Common Emergency Awareness Tips IS IT [...] are strongly encouraged to quit. Please call [employer] at [phone] or [phone] ([phone]) or log in to [email or web address] for referrals to smoking cessation programs. ?? 500 Suicide & Crisis Lifeline is available 15/10 if you or someone you know needs to find a reason to keep living. By calling 170 you'll be connected to a skilled, trained counselor at a crisis center in your area. INPATIENT DISCHARGE INSTRUCTIONS SIGNATURE PAGE LTAOSHA BERNARD Location:[facility] Registration Date and Time:10/19/2022 16:29 EDT Primary Care Physician: Prakash Graham MD, Attending Physician: Chad Marques MD, I LATOSHA BERNARD, have received the above patient education materials/instructions and have verbalized understanding. If ambulance or transport services are being used I further acknowledge being given a choice of service. ?? If you need to contact me, please call me at this number: . Patient/Mine Wedge Sawyer Name: Patient/Mine Wedge Sawyer Signature: Relationship to Patient: Witness Name/Signature: Date: * Noy JACOBSON, Melinda: PERFORM, SIGN, VERIFY Event Display: Patient Education Handout Authored Date: [id number] * Belia Mansfield RN: PERFORM Event Display: Patient Education Leaflets Authored Date: [id number] Negative Pressure Wound Therapy ?? [address]368 Negative Pressure Wound Therapy Negative pressure wound therapy (NPWT) is a type of treatment to help wounds heal. It's also known as vacuum-assisted wound closure or wound VAC. During the treatment, a device lowers air pressure onthe wound. This can help the wound heal more quickly. Understanding NPWT A NPWT device has several parts. A foam or gauze dressing is put directly on the wound. The dressing is changed every 24 to 72 hours. An adhesive film covers and seals the dressing and wound. A drainage tube leads from under the adhesive film and connects to a portable vacuum pump. This pump removes air pressure over the wound, and it also helps drain any fluid from the wound. It may do this const antly. Or it may do it in cycles. During the treatment, you???ll need to carry the portable pump everywhere you go. ?? Why NPWT is used You might need this therapy for a recent traumatic wound. Or you may need it for a chronic wound. This is a wound that does not heal the way it should over time. This can happen with wounds in peoplewho have diabetes. You may need NPWT if you???ve had a recent skin graft. And you may need it for alarge wound. Large wounds can take a longer time to heal. NPWT may help your wound heal more quickly by: ??? Draining extra fluid from the wound ??? Reducing swelling ??? Reducing bacteria in the wound ??? Keeping your wound moist and warm ??? Helping draw together wound edges ??? Increasing blood flow to your wound ??? Decreasing inflammation NPWT offers some other advantages over other types of wound care. It may decrease your overall discomfort. The dressings usually need to be changed less often. And they may be easier to keep in place. ?? Risks of NPWT NPWT has some rare risks, such as: ??? Bleeding, which may be severe ??? Wound infection ??? An abnormal connection between the intestinal tract and the skin (enteric fistula). This is usually a problem only if the NPWT is used on an open belly wound that was unable to be closed. Proper training in dressing changes can help reduce the risk for these complications. Also, your healthcare provider will carefully evaluate you to make sure you are a good candidate for the therapy.Certain problems can increase your risk for complications. These include: ??? Exposed organs or blood vessels ??? High risk of bleeding from another medical problem ??? Wound infection ??? Nearby bone infection ??? wound tissue ??? Cancer tissue ??? Fragile skin, suchas from aging or longtime use of topical steroids ??? Allergy to adhesive ??? Very poor blood flow to your wound ??? Wounds close to joints that may reopen because of movement Your healthcare provider will discuss the risks that apply to you. Make sure to talk with them about all your questions and concerns. ?? Getting ready for NPWT You likely won???t need to do much to get ready for your wound therapy. In some cases, you may needto wait a while before having this therapy. For example, your healthcare provider may first need totreat an infection in your wound. or damaged tissue may also need to be removed from your wound. You or a caregiver may need training on how to use the NPWT device. This is done if you will be able to have your wound vacuum therapy at home. In other cases, you may need to have your wound vacuum therapy in a healthcare facility. ?? On the day of your procedure A healthcare provider will cover your wound with foam or gauze wound dressing. An adhesive film will be put over the dressing and wound. This seals the wound. The foam connects to a drainage tube, which leads to a vacuum pump. This pump is portable. When the pump is turned on, it draws fluid through the foam and out the drainage tubing. The pump may run constantly, or it may cycle off and on. Your exact setup will depend on the specific type of wound vacuum system that you use. ?? Managing your wound You may need the dressing changed about once a day, or less often, such as every few days. You may need it changed more or less often, depending on your wound. You or your caregiver may be trained todo this at home. Or it may be done by a visiting healthcare provider. Your provider may prescribe apain medicine. This is to prevent or reduce pain during the dressing change. You will likely need to use the NPWT system for several weeks or months to allow the wound to heal.During this time, you???ll carry the portable pump everywhere you go. ?? Nutrition for wound healing During this time, make sure you follow a healthy diet. This is needed so the wound can heal and to prevent infection. Your healthcare provider can tell you more about what to include in your diet during this time. Follow up with your healthcare provider if you have a medical condition that led to your wound, such as diabetes. Your provider can help you prevent future wounds. ?? Follow-up care Your healthcare provider will carefully keep track of your healing. Make sure to keep all follow-upappointments. This can include measuring the size of the wound and taking pictures of it. ?? When to call your healthcare provider Call your healthcare provider right away if you have any of these: ??? Fever of 100.4??F (38.0??C) or higher, or as directed by your healthcare provider ??? Chills ??? Increased redness, swelling, orwarmth around the wound ??? Increased pain ??? Bright red blood or blood clots in tubing or the collection chamber of the NPWT device ?? Last Reviewed Date: 2021 ?? 9792-3404 The [employer]. All rights reserved. This information is not intended as a substitute for professional medical care. Always follow your healthcare professional's instructions. ?? * Belia Mansfield RN: PERFORM Event Display: Patient Education Leaflets Authored Date: [id number] Negative Pressure Wound Therapy ?? 94013 Negative Pressure Wound Therapy Negative pressure wound therapy (NPWT) is a type of treatment to help wounds heal. It's also known as vacuum-assisted wound closure or wound VAC. During the treatment, a device lowers air pressure onthe wound. This can help the wound heal more quickly. Understanding NPWT A NPWT device has several parts. A foam or gauze dressing is put directly on the wound. The dressing is changed every 24 to 72 hours. An adhesive film covers and seals the dressing and wound. A drainage tube leads from under the adhesive film and connects to a portable vacuum pump. This pump removes air pressure over the wound, and it also helps drain any fluid from the wound. It may do this const antly. Or it may do it in cycles. During the treatment, you???ll need to carry the portable pump everywhere you go. ?? Why NPWT is used You might need this therapy for a recent traumatic wound. Or you may need it for a chronic wound. This is a wound that does not heal the way it should over time. This can happen with wounds in peoplewho have diabetes. You may need NPWT if you???ve had a recent skin graft. And you may need it for alarge wound. Large wounds can take a longer time to heal. NPWT may help your wound heal more quickly by: ??? Draining extra fluid from the wound ??? Reducing swelling ??? Reducing bacteria in the wound ??? Keeping your wound moist and warm ??? Helping draw together wound edges ??? Increasing blood flow to your wound ??? Decreasing inflammation NPWT offers some other advantages over other types of wound care. It may decrease your overall discomfort. The dressings usually need to be changed less often. And they may be easier to keep in place. ?? Risks of NPWT NPWT has some rare risks, such as: ??? Bleeding, which may be severe ??? Wound infection ??? An abnormal connection between the intestinal tract and the skin (enteric fistula). This is usually a problem only if the NPWT is used on an open belly wound that was unable to be closed. Proper training in dressing changes can help reduce the risk for these complications. Also, your healthcare provider will carefully evaluate you to make sure you are a good candidate for the therapy.Certain problems can increase your risk for complications. These include: ??? Exposed organs or blood vessels ??? High risk of bleeding from another medical problem ??? Wound infection ??? Nearby bone infection ??? wound tissue ??? Cancer tissue ??? Fragile skin, suchas from aging or longtime use of topical steroids ??? Allergy to adhesive ??? Very poor blood flow to your wound ??? Wounds close to joints that may reopen because of movement Your healthcare provider will discuss the risks that apply to you. Make sure to talk with them about all your questions and concerns. ?? Getting ready for NPWT You likely won???t need to do much to get ready for your wound therapy. In some cases, you may needto wait a while before having this therapy. For example, your healthcare provider may first need totreat an infection in your wound. or damaged tissue may also need to be removed from your wound. You or a caregiver may need training on how to use the NPWT device. This is done if you will be able to have your wound vacuum therapy at home. In other cases, you may need to have your wound vacuum therapy in a healthcare facility. ?? On the day of your procedure A healthcare provider will cover your wound with foam or gauze wound dressing. An adhesive film will be put over the dressing and wound. This seals the wound. The foam connects to a drainage tube, which leads to a vacuum pump. This pump is portable. When the pump is turned on, it draws fluid through the foam and out the drainage tubing. The pump may run constantly, or it may cycle off and on. Your exact setup will depend on the specific type of wound vacuum system that you use. ?? Managing your wound You may need the dressing changed about once a day, or less often, such as every few days. You may need it changed more or less often, depending on your wound. You or your caregiver may be trained todo this at home. Or it may be done by a visiting healthcare provider. Your provider may prescribe apain medicine. This is to prevent or reduce pain during the dressing change. You will likely need to use the NPWT system for several weeks or months to allow the wound to heal.During this time, you???ll carry the portable pump everywhere you go. ?? Nutrition for wound healing During this time, make sure you follow a healthy diet. This is needed so the wound can heal and to prevent infection. Your healthcare provider can tell you more about what to include in your diet during this time. Follow up with your healthcare provider if you have a medical condition that led to your wound, such as diabetes. Your provider can help you prevent future wounds. ?? Follow-up care Your healthcare provider will carefully keep track of your healing. Make sure to keep all follow-upappointments. This can include measuring the size of the wound and taking pictures of it. ?? When to call your healthcare provider Call your healthcare provider right away if you have any of these: ??? Fever of 100.4??F (38.0??C) or higher, or as directed by your healthcare provider ??? Chills ??? Increased redness, swelling, orwarmth around the wound ??? Increased pain ??? Bright red blood or blood clots in tubing or the collection chamber of the NPWT device ?? Last Reviewed Date: 2021 ?? The [employer]. All rights reserved. This information is not intended as a substitute for professional medical care. Always follow your healthcare professional's instructions. ?? * Melinda Villafuerte NP: PERFORM Event Display: Patient Education Leaflets Authored Date: [id number] Wound Check After Surgery: Infection ?? [id number] Wound Check After Surgery: Infection Your surgical wound has become infected. Infection after surgery usually involves just the top layers of skin. Sometimes the infection is deeper in the wound and may involve a collection of fluid or pus. Treatment will depend on the type of infection you have. You may need to have a procedure to open and drain the wound if pus or infected fluid is present. You may get antibiotics for the infection. Take them as directed until gone. Home care Different types of surgery require different types of care and dressing changes. It's important to follow all instructions and advice from your surgeon, as well as other members of your healthcare team. If possible, it can be helpful to have a family member or close friend listen with you to the discharge instructions. Wound care ??? Keep the wound clean, as directed by your healthcare provider. ??? Change the dressing as directed. Change the dressing sooner if it becomes wet or stained with blood or fluid from the wound. ???Bathe with a sponge (no shower or tub baths) for the first few days, or until there is no more drainage from the wound. Unless your surgeon??gave you??different instructions, you can then shower. Don't soak the area in water (no baths or swimming) until the tape, sutures, or janis are removed andany wound opening has dried out and healed. ??? If you smoke, stop smoking. Ask your healthcare provider about ways to quit. Changing the dressing ??? Scrub your hands with plain soap and clean, running water for at least 20 seconds before and after changing the dressings. Or use an alcohol-based hand boat cleaner. ??? Carefully remove the dressing and tape. Don???t just yank it off. If it sticks to the wound, you may need to wet it a little to remove it, unless your healthcare provider told you not to wet it. ??? Gently clean the wound with clean water (or saline) using gauze or a clean washcloth. Don't rub it or pick at it. ??? Don't use soap, alcohol, hydrogen peroxide, or any other cleanser on the wound. ??? If you were told to dry the wound before putting on a new dressing, gently pat it dry. Don't rub. ??? Scrub your hands again for at least 20 seconds before putting on a new, clean dressing. ??? Put the old dressing in a sealed plastic bag and throw it out. Don't reuse it! ??? Scrub your hands again for 20 seconds when you are done. Types of dressings Your healthcare team will tell you what type of dressing to put on your wound. Follow your healthcare team???s instructions carefully, and contact them if you have any questions. Two common types of dressings are described below. You may have one of these or another type. ??? Dry dressing. Use dry gauze or pad. ??? Wet-to-dry dressing. Wet the gauze and squeeze out the extra water (or saline) before putting it on. Then cover this with a dry pad. Medicines ??? If you were given antibiotics, take them until they are used up or your healthcare provider tells you to stop. It's important to finish the antibiotics even though you feel better, to make sure the infection has cleared. ??? You can take acetaminophen or ibuprofen for pain, unless youwere given a different pain medicine to use.??Talk with your provider before using these medicines if you have chronic liver or kidney disease. Also talk with your provider if you have ever had a stomach ulcer or digestive bleeding, or are taking blood-thinner medicines. ?? Follow-up care Follow up with your healthcare provider for your next wound check or to remove your stitches, janis, or tape. ??? If a wound culture was done, you'll be told if the results will affect your treatment. You can call as directed for the results. ??? If imaging tests, such as X-rays, an ultrasound, or CT scan were done, they'll be looked at by a specialist. You'll be told of the results, especiallyif they affect treatment. ?? Call 911 Call 911 if any??of these occur: ??? Trouble breathing or swallowing ??? Wheezing ??? Hoarse voice or trouble speaking ??? Extreme confusion ??? Extreme drowsiness or trouble awakening ??? Fainting or loss of consciousness ??? Rapid heart rate or very slow heart rate ??? Vomiting blood, or large amounts of blood in stool ??? Discomfort in the center of the chest that feels like pressure, squeezing, a sense of fullness, or pain ??? Discomfort or pain in other upper body areas, such as the back, one or both arms, neck, jaw, or stomach ??? Stroke symptoms (spot a stroke ???AST): o F: Face drooping. One side of the face is numb or droops. o A: Arm weakness. One arm feels weak or numb. o S: Speech difficulty: Speech is slurred, or you??can't speak. o T: Time to call 911. Even if symptoms go away, call 911. ?? When to get medical advice Call your healthcare provider right away if any of these occur: ??? Increasing pain at the site of surgery ??? Pain not controlled by medicine prescribed ??? Fever of 100.4??F (38??C) or higher, or as directed by your provider ??? Increasing redness around the wound ??? Fluid, pus, or blood that continues to drain from the wound after 5 days of treatment ??? Vomiting, constipation, or diarrhea ??? Symptoms get worse or new symptoms appear ?? Last Reviewed Date: 2021 ?? [id number] The [employer]. All rights reserved. This information is not intended as a substitute for professional medical care. Always follow your healthcare professional's instructions. ?? * Krystyna Driscoll RN: VERIFY, PERFORM, SIGN Event Display: Cardiac Rehab Note Authored Date: [id number] Patient: LATOSHA BERNARD Age: 77 years Sex: Female : 1945 Associated Diagnoses: None Author: Krystyna Driscoll RN Participated in multidisciplinary cardiac surgery rounds. See CIS for plan of care. Please page [phone] with questions. * Aura Subramanian RN: VERIFY, PERFORM, SIGN Event Display: Cardiac Rehab Note Authored Date: [id number] Patient: LATOSHA BERNARD Age: 77 years Sex: Female : 1945 Associated Diagnoses: None Author: Aura Subramanian RN Pt's chart reviewed, pt readmitted for draining sternal wound from cardiac surgery office, previously referred to cardiac rehab at [facility] will sign off at this time. Consult note * Radha Swift RN: PERFORM, SIGN, VERIFY, MODIFY, SIGN Event Display: Consultation Note Authored Date: [id number] Patient: LATOSHA BERNARD Age: 77 years Sex: Female : 1945 Associated Diagnoses: None Author: Radha Swift RN History of Presenting Problem coccyx 09/03 coccyx 10/23 Date of Service 10/24/2022 Reason for referral Wound: Description Location: Intergluteal crease Etiology: MASD (moisture associated skin damage): Intertrigo Wound Bed: Linear full thickness skin loss with pale yellow slough and red viable wound base RN describing there to be 'depth' Edges: Poorly defined/defined with maceration Jami Wound: Erythema, clustered areas of macerated 'white' nonviable epidermal layer, mirrored hyperpigmentation consistent with chronic moisture exposure Drainage: white consistency per RN- suspected macerated nonviable epidermal layer Goals: Offload pressure, moisture management and enhanced autolytic debridement . Wound RN consult entered to assess intergluteal crease wound and make topical recommendations. Patient was admitted on 10/19/22 for draining sternal wound, previous admission for AVR/CABGx3 on 08/28/22. Significant PMH includes MO, Afib, DM, HF and HTN; see H&P for further details. Recommendations/assessment discerned via photo, brief chart review and collaboration with direct care RN (in person, Carmelina Bolanos); Wound RN did not go to bedside. Patient consulted per Wound RN team on previous admission, 09/04 describing intergluteal crease as MASD (moisture associated skin damage): Intertrigo, see photo above for comparison and previous note for details. Discussed with RN importance of keeping areas cleansed and dry followed by Triad application. Also discussed importance of pressure prevention interventions. Patient is continent. Recommendations sent via cortex to INDIRA Villafuerte. Recommendations: 1.) Intergluteal crease: Cleanse with pH balanced cleanser. Pat dry. Apply thin layer of Triad to wound bed. Only pat and dab, no scrub and rub, when soiling occurs. Reapply thin layer PRN after incontinence care. 2.) Consider use of specialty bed/low air loss mattress 3.) Turn and reposition every 2 hours and PRN 4.) Continue incontinence care as well as moisture management; do not utilize Mepilex foam dressingwith incontinence 5.) Do not utilize brief use 6.) Continue to offload bony prominences 7.) Continue to provide optimal nutritional support 8.) Provide Gaymar cushion to chair when patient OOB Please reconsult wound care RNs for deterioration in wound/skin status Patient at increased risk for pressure injury development d/t mobility, moisture and current integumentary status, please ensure to utilize pressure prevention interventions Plan Patient Teaching Discussed plan of care with RN Time spent 16-30 minutes * Aadma JACOBSON, Cheryl Haque: MODIFY, MODIFY, MODIFY, MODIFY, MODIFY, PERFORM, MODIFY Event Display: Consultation Note Authored Date: [id number] Patient: ??LATOSHA BERNARD ? Age:??77 Years?Sex:??Female?:??1945?? Reason for Consultation Sternal wound infection, antibiotic assistance History of Present Illness Date: 10/22/2022 Infectious Diseases Attending: Dr. Dodd Requesting Attending/Provider: Dr. Marques Source of Information: CIS, patient? The patient is a 77-year-old diabetic female with HTN, HLD, h/o CVA, prior CEA, known moderate and CAD (known 3VD) who underwent elective CABG x3 with AVR with bovine pericardial valve and exploration of LV with concern for a possible mass on 08/[address] Marques with postop course complicatedby cardiogenic shock requiring vasopressors, A-fib requiring cardioversion, anemia requiring blood transfusions, R pleural effusion s/p pigtail placement.?? She was extubated and discharged to a SNF on 09/24. On 10/19, she had a follow up with cardiology where the inferior half of her sternotomy woundwas dehisced therefore she was admitted for intervention. She was taken to the OR 10/[address] Marques with debridement of necrotic fat down to just about the fascial layer and a wound vac was placed. Cultures were sent growing out Klebsiella aerogenes and Proteus mirabilis.??She was placed on cefazolin although noted to be resistant. ID consulted for antibiotic assistance. ?? Recent Antimicrobials: Cefazolin 10/19 to present ?? Medications: Reviewed Antimicrobial Allergies: Amoxicillin- hives from childhood Family History:??No relevant history of infectious issues in first degree relatives.?? Social History and Infectious Diseases Exposure History: No recent travel.??She was discharged to rehab then back home about 1 week ago. Has cats at home who have not been near her wound. Review of Systems She denies fever, rigors, shortness of breath, cough, abdominal pain, nausea, vomiting, diarrhea, or rash. ?? Physical Exam Vitals & Measurements T:??97.8?F?? TMIN:??97.6?F?? TMAX:??99.1?F?? HR:??62??(Peripheral)?? RR:??18?? BP:??146/46?? SpO2:??96%?? WT:??76.1??kg?? GENERAL:Alert, in no acute distress.?? HEENT: Anicteric, no subconjunctival petechiae. Moist oral mucosa without lesions or thrush. CARDIOVASCULAR:??Regular rate and rhythm. No peripheral stigmata of endocarditis.?? RESPIRATORY:??Lungs clear to auscultation.?? GASTROINTESTINAL: Non-distended, normoactive bowel sounds, non-tender. MUSCULOSKELETAL: No gross deformity. SKIN: ??No diffuse rash present. Wound vac in place??to chest midline with sanguinous output. NEUROLOGICAL/PSYCH:??A&Ox3, grossly intact.?? LINES:??PIV without erythema or pain.? Micro: OR sternal wound tissue culture 10/20: Klebsiella aerogenes, Proteus mirabilis Blood cultures x2 10/19: NGTD ?? Culture/Event_id: ?Tissue/Biopsy Culture/[id number]?? Collect date: ?10/20/22 08:44 ? Result Status: ?Auth (Verified) Result Date: ?10/22/22 08:31 ? SPECIMEN DESCRIPTION : TISSUE ??STERNAL WOUND ?? SPECIAL REQUESTS : NONE ?? GRAM STAIN : 1+ POLYMORPHONUCLEAR LEUKOCYTES ?NO ORGANISMS SEEN ?? CULTURE : 2+ KLEBSIELLA (FORMERLY ENTEROBACTER) AEROGENES ??Due to potential ? resistance which can develop on therapy, monotherapy with a ? 3rd-generation cephalosporin (ceftriaxone, ceftazidime, cefpodoxime, ? cefixime) is not recommended to treat this organism. This isolate was ? identified using Maldi-TOF system These AST results were performed on ? the Microscan ID and AST system ?1+ PROTEUS MIRABILIS ??This isolate was identified using Maldi-TOF system ??These AST results were performed on the Microscan ID and AST system ?? REPORT STATUS : FINAL 10/22/2022 ? ORGANISM ? 2+ KLEBSIELLA (FORMERLY ENTEROBACTER) AEROGENES ??Due ? to potential resistance which can develop on ??therapy, monotherapy with a 3rd-generation cephalosporin (ceftriaxone, ??ceftazidime, cefpodoxime, cefixime) is not recommended to treat this ??organism. This isolate was identified using Maldi-TOF system ??These AST ??results were performed on the Microscan ID and AST system METHOD ? MIN. INHIB. CONC. (MCG/ML) AMOXICILLIN/CLAVULAN RESISTANT AMPICILLIN ? RESISTANT AMPICILLIN/SULBACTAM RESISTANT CEFAZOLIN ?RESISTANT CEFEPIME ? SUSCEPTIBLE CEFTRIAXONE ?RESISTANT CIPROFLOXACIN ?SUSCEPTIBLE ERTAPENEM ?SUSCEPTIBLE GENTAMICIN ? SUSCEPTIBLE LEVOFLOXACIN ? SUSCEPTIBLE MEROPENEM ?SUSCEPTIBLE PIPERACILLIN/TAZOBAC SUSCEPTIBLE TETRACYCLINE ? SUSCEPTIBLE TRIMETH/SULFAMETHOX ??SUSCEPTIBLE ?? ORGANISM ? 1+ PROTEUS MIRABILIS ??This isolate was identified ? using Maldi-TOF system These AST results were ??performed on the [employer] ID and AST system METHOD ? MIN. INHIB. CONC. (MCG/ML) AMOXICILLIN/CLAVULAN SUSCEPTIBLE AMPICILLIN ? SUSCEPTIBLE AMPICILLIN/SULBACTAM INTERMEDIATE CEFAZOLIN ?SUSCEPTIBLE CEFEPIME ? SUSCEPTIBLE CEFTRIAXONE ?SUSCEPTIBLE CIPROFLOXACIN ?SUSCEPTIBLE ERTAPENEM ?SUSCEPTIBLE GENTAMICIN ? SUSCEPTIBLE LEVOFLOXACIN ? SUSCEPTIBLE MEROPENEM ?SUSCEPTIBLE PIPERACILLIN/TAZOBAC SUSCEPTIBLE TETRACYCLINE ? RESISTANT TRIMETH/SULFAMETHOX ??SUSCEPTIBLE?? Assessment/Plan The patient is a 77-year-old diabetic female with HTN, HLD, h/o CVA, prior CEA, known moderate and CAD (known 3VD) who underwent elective CABG x3 with AVR with bovine pericardial valve and exploration of LV with concern for a possible mass on 08/[address] Marques with postop course complicated bycardiogenic shock requiring vasopressors, R pleural effusion s/p pigtail placement with prolonged ICU admission who was admitted 10/19 due to sternotomy wound dehiscence s/p debridement of necrotic fat down to just about the fascial layer and a wound vac was placed (Dr. Marques 10/20). Tissue cultureswere sent growing out Klebsiella aerogenes and Proteus mirabilis.??Was previously receiving cefazolin which??is resistant to the Klebsiella. Can transition to cefepime to complete 2 weeks ending 11/05. If a PO option is needed for discharge, could consider a quinolone if her QTC remains <500. ?? - Stop cefazolin - Start cefepime for 2 weeks to end 11/05 (quinolone on discharge if oral option is needed) ?ID will sign-off at this time. ??Thank you for the consultation. ??Please call if any questions arise. ?? CHRAAN Tovar- Division of Infectious Diseases ?? Discussed with Dr. Dodd (This note was dictated using the [employer] software and any typographical/grammatical errors were notdeliberate. Please contact provider for clarifications.) Problem List/Past Medical History Ongoing Acute myocardial infarction of anterior wall Atrial fibrillation with RVR Diabetes mellitus - adult onset Heart failure with reduced ejection fraction Hypertension Right heart failure due to left heart failure Allergies amoxicillin??(Hives) Lab Results Test Name Test Result Date/Time WBC 8.6 k/mm3 10/22/2022 04:16 EDT Hgb 7.3 Gm/dL 10/22/2022 04:16 EDT Platelet Count 260 k/mm3 10/22/2022 04:16 EDT Sodium 138 mmol/L 10/22/2022 04:16 EDT Potassium 5.2 mmol/L 10/22/2022 04:16 EDT BUN 13 mg/dL 10/22/2022 04:16 EDT Creatinine-Blood 1.0 mg/dL 10/22/2022 04:16 EDT Alkaline Phosphatase 69 units/L 10/22/2022 04:16 EDT AST (SGOT) 23 units/L 10/22/2022 04:16 EDT ALT (SGPT) <5 units/L 10/22/2022 04:16 EDT Bilirubin, Total 0.2 mg/dL 10/22/2022 04:16 EDT Diagnostic Results (10/19/2022 21:[address] Chest W/O Contrast) IMPRESSION: At midline in the anterior chest wall there is a linear skin defect with associated subcutaneous fat stranding. Status post sternotomy with there is mild distraction at the sternotomy site within the sternum superiorly. Bilateral small pleural effusions which are decreased in size compared to the prior exam. 2 right lung nodules ranging in size from 1 to 4 mm. Recommendations are for six-month follow-up. [1] [1]??CT Chest W/O Contrast; Santos JORDAN, Carmen Pedraza 10/19/2022 21:46 EDT * Gabriella Dodd MD: PERFORM Event Display: Consultation Note Authored Date: [id number] I reviewed the chart and discussed the case with CHARAN Tovar. The above plan was developed in conjunction with me and I agree with it as written. ??Based on the susceptibilities of the identified organism, I agree with broadening her??to cefepime while she is inpatient.?? When she is ready for discharge, she can be transitioned to levofloxacin 750 mg??daily??to complete a total of??2 weeks,??end date 11/05. 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 ??Her QTc??on EKG from this admission was 399, soI do think??levofloxacin is safe in her case. ?Gabriella Dodd MD, MPH ? Patient Care team information Care Team Personnel Name: Daniella Doyle RN Position: [facility] RN Member Role: Primary Care Nurse Name: Lia Stiles RN Position: [facility] RN Supv Member Role: Primary Care Nurse Name: Felicia Mendez RN Position: [facility] RN Member Role: Primary Care Nurse Name: Prakash Graham MD Position: [facility] Outreach Member Role: PCP Address: Address: [address] [place] [address] [place], [place] [address] Name: Ralf Beach RN Position: [facility] RN Member Role: Primary Care Nurse Name: Moni Cunha RN Position: [facility] RN Member Role: Primary Care Nurse Name: Juan Prado RN Position: [facility] RN Member Role: Primary Care Nurse Name: Myranda Evangelista RN Position: [facility] RN Member Role: Primary Care Nurse Name: Petrona Schmidt Position: S RN Member Role: Primary Care Nurse Name: Delisa Rodriguez LPN Position: [facility] RN Member Role: Primary Care Nurse Name: Crhis Collier RN Position: [facility] RN Member Role: Primary Care Nurse Name: Kelly Sotelo RN Position: [facility] RN Member Role: Primary Care Nurse Name: Jodie Salamanca RN Position: [facility] RN Member Role: Primary Care Nurse Name: Dain Villafana RN Position: [facility] RN Member Role: Primary Care Nurse Name: Chris Logan RN Position: [facility] RN Member Role: Primary Care Nurse Name: Nury Romero RN Position: [facility] RN Member Role: Primary Care Nurse Name: Jamee Kothari RN Position: [facility] RN Member Role: Primary Care Nurse Care Team Related Persons Name: BERNARDCAN Address: home [address] [place] [id number] Name: AYDEN PIMENTEL Address: home [address] [place] [id number]
--- OUTSIDE RECORDS SUMMARY | 2022-11-15 06:29 | XMS_ITS | Continuity of Care Document ---
Author Name Unknown Organization [facility] Julian brenna Address [address] [place] [id number]- Care Team Providers Care Bale Sewer Name Role Phone Prakash Graham MD Primary Care Physician [phone] Encounter [facility] Date(s): 11/01/22 - 11/08/22 [facility] [address] [place] [id number]- Attending Physician: Shelli JORDAN, Chad Palma Referring Physician: Cleve Stone MD Allergies, Adverse Reactions, Alerts Substance [...] 0 Refills, Maintenance, 09/24/22 12:51:00 EDT, Tablet, [facility], Partial fill upon patient [...] oldest [Reference Range]: 1 Height 168 cm (11/02/22 1:17 PM) Oxygen Saturation [94-100 %] 95 % (11/02/22 1:17 PM) Pulse Rate [55-90 bpm] 61 bpm (11/02/22 1:17 PM) Blood Pressure [90-138/55-84 mm Hg] 110/ 60mm Hg (11/02/22 1:17 PM) Respiratory Rate [16-30 br/min] 18 br/mi n (11/02/22 1:17 PM) Temperature [96.8-100.4 DegF] 98.6 DegF (11/02/22 1:17 PM) Mode of Delivery (Oxygen) Room air (11/02/22 1:17 PM) Blood pressure sites Arm, right (11/02/22 1:17 PM) Temperature Route Oral (11/02/22 1:17 PM) Cardiac surgery Outpatient Note * Gabriella Valentine: PERFORM Event Display: Cardiac Surgery Note Office Authored Date: Patient: ??LATOSHA BERNARD ? Age:??77 Years?Sex:??Female?:??1945?? Indication for Consult Wound vac change History of Present Illness/Interval History ? 77 year old female who underwent AVR / triple coronary artery bypass grafting on 08/28/[address] Chad Marques for aortic stenosis and coronary artery occlusive disease prolonged hospitalization thend/c rehab on 09/24/22 (POD 27).?? Latosha was readmitted on 10/19/22 after an office visit for a draining sternal wound.?? She underwent a??debridement and??wound vac placement under anesthesia and was dis charged the following day.? Today she presented for wound VAC change with her daughter.?She denies any fevers or chills, any drainage. ??Wound VAC was removed. ??The wound measures 16 x 5 cm. ??There is no drainage.?The base of the wound looks improved since last visit, with granulated tissue and mild bleeding at theinferior aspect of the wound.?Wound VAC was fashioned with a medium sponge and applied with good apposition and good suction. ??The patient tolerated the procedure well. Physical Exam Vitals & Measurements T:??98.6?F?? HR:??61??(Peripheral)?? RR:??18?? BP:??110/60?? SpO2:??95%?? HT:??168??cm?? Weight lb/oz: 171 lb 8 oz Assessment/Plan Patient will return to the office in 1 week with a follow up with Dr. Marques for another wound vac change.?? [facility] was notified not to change the wound vac this week Problem List/Past Medical History Ongoing Acute myocardial infarction of anterior wall Atrial fibrillation with RVR Cardiogenic shock Diabetes mellitus - adult onset Heart failure with reduced ejection fraction Hypertension Right heart failure due to left heart failure Procedure/Surgical History No qualifying data available. Hospital Medications No qualifying data available Lab Results Cardiology Labs WBC: 7 k/mm3 (10/24/22) RBC:??2.49 m/mm3??Low (10/24/22) Hgb:??7.5 Gm/dL??Low (10/24/22) Hct:??25.6 %??Low (10/24/22) MCV:??102.8 femtoliters??High (10/24/22) MCH: 30.1 pg (10/24/22) MCHC:??29.3 g/dL??Low (10/24/22) Platelet Count: 258 k/mm3 (10/24/22) RDW-SD:??71 femtoliters??High (10/24/22) Nucleated RBC (Automated): 0 #/100 WBC'S (10/24/22) Abs. Neut:??12.3 k/mm3??High (09/11/22) Abs. Lymph: 1.1 k/mm3 (09/11/22) Abs. Rutherford: 0.9 k/mm3 (09/11/22) Abs. Eo: 0.2 k/mm3 (09/11/22) Abs. Baso: 0 k/mm3 (09/11/22) Neut %:??84.3 %??High (09/11/22) Rutherford %: 6.2 % (09/11/22) Eos %: 1 % (09/11/22) Baso %: 0.1 % (09/11/22) Imm Gran: 0.9 % (09/11/22) Abs. Imm Gran: 0.1 k/mm3 (09/11/22) INR: 1 (09/01/22) Protime (PT): 10.3 seconds (09/01/22) APTT: 33 seconds (09/10/22) Sodium: 140 mmol/L (10/24/22) Potassium: 4.7 mmol/L (10/24/22) Chloride: 105 mmol/L (10/24/22) Bicarbonate Level: 27 mmol/L (10/24/22) Glucose Level:??133 mg/dL??High (09/11/22) Hemoglobin A1C (Monitoring):??7.6 %??High (08/16/22) BUN: 12 mg/dL (10/24/22) Creatinine-Blood: 1 mg/dL (10/24/22) Calcium: 9.8 mg/dL (08/16/22) Protein, Total:??5.2 Gm/dL??Low (10/22/22) Albumin:??3 Gm/dL??Low (10/22/22) Alkaline Phosphatase: 69 units/L (10/22/22) AST (SGOT): 23 units/L (10/22/22) ALT (SGPT): <5 (10/22/22) Bilirubin, Total: 0.2 mg/dL (10/22/22) CK, Total:??3502 units/L??High (09/03/22) CK MB Confirmation - Quant:??39.5 ng/mL??High (09/03/22) Cholesterol: 15 mg/dL (09/04/22) Triglycerides: 22 mg/dL (09/04/22) TSH: 3.76 uIU/mL (09/06/22) Free T4: 0.7 ng/dL (09/06/22) Diagnostic Impression ECG ECG 12-Lead ?? 16:41:23 Ventricular Rate: 59 BPM Atrial Rate: 59 BPM P-R Interval: 186 ms QRS Duration: 130 ms Q-T Interval: 404 ms QTC Calculation(Bazett): 399 ms P Pyatt: 18 degrees R Pyatt: -12 degrees T Pyatt: 160 degrees Sinus bradycardia Left bundle branch block Abnormal ECG When compared with ECG of 07-SEP-2022 11:58, No significant change was found Confirmed by TRISTIAN STEEL MD ([id number]) on 10/20/2022 2:53:04 PM ?? Dows: TRISTIAN STEEL MD ?? Signed By: Tristian Steel MD T ?? ECG 12-Lead ?? 16:41:23 Please click on pdf link to open report ?? Signed By: Tristian Steel MD Echo Echocardiogram - Complete ?? 06:23:45 Summary The left ventricle is poorly visualized [...] pressure estimation is 24 mmHg + CVP. ?? Comparison Comparison is made to the study of August 31, 2022. Pt is in rapid afib with otherwise unchanged LV function and valve gradients. ?? Signature ?? Signed By: George Hinojosa DO DARA Trans-esophageal Echocardiogram ?? 09/06/22 15:11:17 Summary 1) The LV systolic function appears [...] which is predominantly noted in early systole. ?? Recommendation Based on absence of thrombus in the atria, decision was made to proceed with planned cardioversion ?? Comparison No prior study available for comparison. ?? Signature ?? Signed By: Dinesh Mejia MD Patient Care team information Care Team Personnel Name: Daniella Doyle RN Position: S RN Member Role: Primary Care Nurse Name: Lia Stiles RN Position: [facility] RN Supv Member Role: Primary Care Nurse Name: Felicia Mendez RN Position: S RN Member Role: Primary Care Nurse Name: Prakash Graham MD Position: [facility] Outreach Member Role: PCP Address: Address: [address] [place] [address] Internal Medicine [address] Name: Ralf Beach RN Position: S RN Member Role: Primary Care Nurse Name: Moni Cunha RN Position: S RN Member Role: Primary Care Nurse Name: Juan Prado RN Position: S RN Member Role: Primary Care Nurse Name: Myranda Evangelista RN Position: S RN Member Role: Primary Care Nurse Name: Petrona Schmidt Position: S RN Member Role: Primary Care Nurse Name: Krystyna Cope Position: S Outreach Member Role: Lifetime Consulting Physician Name: Delisa Rodriguez LPN Position: S RN Member Role: Primary Care Nurse Name: Chris Collier RN Position: [facility] RN Member Role: Primary Care Nurse Name: Kelly Sotelo RN Position: S RN Member Role: Primary Care Nurse Name: Jodie Salamanca RN Position: [facility] RN Member Role: Primary Care Nurse Name: Dain Villafana RN Position: [facility] RN Member Role: Primary Care Nurse Name: Nury Romero RN Position: [facility] RN Member Role: Primary Care Nurse Name: Jamee Kothari RN Position: [facility] RN Member Role: Primary Care Nurse Care Team Related Persons Name: CAN BERNARD Address: [address] [address] Name: AYDEN PIMENTEL Address: [address] [address]
== END 2022-11-15 06:31 | disposition left against medical advice (07) ==
PROVIDERS: Emergency Provider Emergency Medicine
DX: T85.698A Other mechanical complication of other specified internal prosthetic devices, implants and grafts, initial encounter (principal); Y82.8 Other medical devices associated with adverse incidents
CPT/HCPCS: 99281

== ENCOUNTER 2023-01-24 08:50 | Outpatient (AMB) | payer MEDICARE, SELFPAY ==
--- NOTE | 2023-01-24 08:51 | A.OFFVIS_ITS ---
Intake Vital Signs 01/24/23 08:52 Height 5 ft 6 in Weight 173 lb 11.588 oz BMI 28.0 BP 172/80 H Blood Pressure Location Lt brachial Position Sitting Pulse 51 Intake Visit Reasons: follow up Intake Note: follow up Classroom Coordinator Required: No Accompanied by: Self / Same As Patient Allergies amoxicillin Allergy (Mild, Verified 01/24/23 08:54) RASH Medication List - Last Reconciled 01/24/23 by David Stone MD apixaban (Eliquis) 5 mg PO BID aspirin 81 mg PO DAILY atorvastatin 80 mg PO BEDTIME cholecalciferol (vitamin D3) 50 mcg PO DAILY epoetin elina (Procrit) 2,000 units subcut QWEEK ferrous sulfate 325 mg PO DAILY metoprolol succinate ER 25 mg PO DAILY multivitamin with iron-mineral 1 tab PO DAILY pyridoxine (vitamin B6) 100 mg PO DAILY 90 days sertraline 50 mg PO DAILY HPI HPI Comments History of Present Illness Details Dia returns for follow-up regarding coronary disease. She recently underwent coronary artery bypass surgery as well as bioprosthetic aortic valve replacement. She seems to have had a long hospitalization course. Per documentation, it seems that she underwent this surgery but then had atrial fibrillation rapid rate that required cardioversion as it was unstable. Then it seems echocardiogram had shown anteroseptal, inferoseptal, apical akinesis but she was taken to the central lab technician and grafts are patent. Also had congestive heart failure. LVEF in the 20s. Overall, had a long course and then had a wound VAC in place due to poor healing. Now it seems that the wound VAC has been removed. She is slowly recovering. No specific symptoms. Improved from the last visit. [facility] Medical History (Updated 01/24/23 @ 09:52 by David Stone MD) Paroxysmal atrial fibrillation COVID-19 Abnormal myocardial perfusion study Smoking Other and unspecified hyperlipidemia Essential hypertension Type 2 diabetes mellitus with unspecified complications Atherosclerotic cardiovascular disease Wears partial dentures Arthritis Depression Expressive aphasia CVA (cerebral vascular accident) Lab test negative for COVID-19 virus Hx of cardiac murmur Hyperlipidemia Diabetes Hypertension Surgical History Status post aortic valve replacement with bioprosthetic valve History of excision of pilonidal cyst Hx of dilation and curettage Family History Father Heart attack Mother Heart attack Social History Household Members: None Housing: House Are you a primary patient care technician instructor to a significant other at home: Yes () Do you presently have visiting nurse or other home services: No Alcohol intake: never Patient Tobacco Use Status: Former Tobacco user Tobacco use type: Cigarette Cigarette Packs Per Day: 1 Years Smoked: 62 Second Hand Smoke Exposure: No service: No Current occupational status: employed and retired Review of Systems Const Denies weakness ENT Denies dizziness Card Denies chest pain, Denies chest pain with activity, Denies syncope, Denies rapid heart rate, Denies pedal edema, Denies edema, Denies leg edema, Denies lightheadedness, Denies palpitations, Denies dyspnea, Denies dyspnea on exertion and Denies orthopnea Resp Denies cough, Denies dyspnea and Denies dyspnea on exertion GI Denies hematochezia and Denies change in stool character Musc Denies abnormal gait, Denies muscle cramps, Denies muscle weakness, Denies numbness, Denies radiating pain into limb and Denies tingling Neuro Denies abnormal gait, Denies dizziness, Denies syncope, Denies numbness, Denies tingling and Denies weakness Endo Denies palpitations Physical Exam Vital Signs: Last Vital Signs Pulse 51 01/24/23 08:52 BP 172/80 H 01/24/23 08:52 BMI result Body Mass Index 28.0 Const General: comfortable and no acute distress Orientation/consciousness: patient oriented x3 HEENT Other: Unremarkable Head: Yes normal to inspection Neck Neck: Yes normal visual inspection Chest Chest palpation & inspection: normal inspection of the chest Resp Auscultation: clear to auscultation bilaterally Cardio Palpation: normal PMI Heart sounds: S1 normal heart sound present, S2 normal heart sound present, no gallops, Murmur heart sound present systolic I/ and at the right sternal border and no rubs GI Palpation (GI): Soft to palpation Back/Spine/Pelvis Other: unremarkable Skin General skin exam: no rashes or lesions noted Neuro General: patient oriented x3 Extrem General: Yes normal to inspection Psych Mental Status: mental status grossly normal Assessment & Plan Assessment & Plan (1) Atherosclerotic cardiovascular disease: Code(s): I25.10 - Atherosclerotic heart disease of [place] coronary artery without angina pectoris Plan: Status post coronary artery bypass surgery. Continue aspirin, high-dose statins. Follow-up lipids in due course. (2) Status post aortic valve replacement with bioprosthetic valve: Code(s): Z95.3 - Presence of xenogenic heart valve Plan: She also had bioprosthetic aortic valve replacement during the CABG -19mmHg Inspiris valve. Infective endocarditis prophylaxis per protocol. Echocardiogram when able. Due to wound VAC, could not get echo recently. (3) Cardiomyopathy: Code(s): I42.9 - Cardiomyopathy, unspecified Qualifiers: Cardiomyopathy type: ischemic Qualified Code(s): I25.5 - Ischemic cardiomyopathy Plan: Possibly related to atrial fibrillation rapid rate. Per DARA at [facility], LVEF 30-40%. Distal inferoseptal/anteroseptal/apical hypokinesis. [id number] mitral regurgitation. Bioprosthetic aortic valve was okay. Echocardiogram when able. Previously could not do because of the wound VAC. Clinically, no heart failure symptoms or signs. (4) Paroxysmal atrial fibrillation: Code(s): I48.0 - Paroxysmal atrial fibrillation Plan: It seems she underwent cardioversion in the postoperative period. Had been on amiodarone but not anymore. Continue Eliquis. (5) LBBB (left bundle branch block): Code(s): I44.7 - Left bundle-branch block, unspecified Plan: EKG from [facility] from 10/19 shows left bundle-branch block. Will need to be followed. 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 Being also concurrently followed up with vascular surgery. (7) Essential hypertension: Code(s): I10 - Essential (primary) hypertension Plan: In the past, has been on losartan/amlodipine. As the blood pressure is going up, start the amlodipine back. Then probably losartan as well. (8) Smoking: Code(s): F17.200 - Nicotine dependence, unspecified, uncomplicated Plan: Has stopped. 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
[2023-01-24 08:52] VITALS: BP 172/80; PULSE 51; BMI 28.0
== END 2023-01-24 09:12 | disposition home or self-care (01) ==
PROVIDERS: PCP Internal Medicine; Visit Provider Internal Medicine
DX: I25.10 Atherosclerotic heart disease of native coronary artery without angina pectoris (principal); Z95.3 Presence of xenogenic heart valve; I25.5 Ischemic cardiomyopathy; I48.0 Paroxysmal atrial fibrillation; I44.7 Left bundle-branch block, unspecified; I63.232 Cerebral infarction due to unspecified occlusion or stenosis of left carotid arteries; I10 Essential (primary) hypertension; F17.200 Nicotine dependence, unspecified, uncomplicated
CPT/HCPCS: 99214

== ENCOUNTER → 2023-01-24 08:50 | Outpatient (BNVA) | payer MEDICARE, SELFPAY | PROVIDERS: PCP Internal Medicine; Visit Provider Internal Medicine | DX: I25.10 Atherosclerotic heart disease of native coronary artery without angina pectoris (principal); I25.5 Ischemic cardiomyopathy; I48.0 Paroxysmal atrial fibrillation; I44.7 Left bundle-branch block, unspecified; I10 Essential (primary) hypertension; I63.232 Cerebral infarction due to unspecified occlusion or stenosis of left carotid arteries; Z95.3 Presence of xenogenic heart valve; F17.210 Nicotine dependence, cigarettes, uncomplicated | CPT/HCPCS: 99212 ==

== ENCOUNTER 2023-03-21 10:32 | Outpatient (AMB) | payer MEDICARE, SELFPAY ==
[2023-03-21 10:42] VITALS: BP 138/76; PULSE 77; O2SAT 96; BMI 27.9
--- NOTE | 2023-03-21 10:42 | MHC.OFFVIS ---
Intake Vital Signs 03/21/23 10:42 Height 5 ft 6 in Weight 173 lb BMI 27.9 BP 138/76 Blood Pressure Location Lt brachial Position Sitting Pulse 77 Pulse Source Pulse Oximeter Pulse Oximetry (%) 96 Oxygen Delivery Method Room Air Intake Visit Reasons: Urgent request Dr Graham, rt middle toe infection Intake Note: Pt presents to the office today for an urgent appt for rt middle toe infection. Pt states about a month ago her right foot started swelling and getting red. Pt states it is very painful and feels like electrical shocks are going up her right leg. Allergies amoxicillin Allergy (Mild, Verified 03/21/23 10:44) RASH HPI Urgent request Dr Graham, rt middle toe infection HPI Details Pleasant 77-year-old female actually known to me for prior carotid surgery done 3 years ago presents for nonhealing ulcer of the right lower extremity and foot discoloration. She reports a complex course after CABG earlier this year. She has a nonhealing sternal wound. In addition she reports a nonhealing vein harvest site wound as well. She has noted some foot discoloration and is concerned about that. Her right 2nd toe actually has a darkened area as well. She now presents to us for vascular evaluation. [facility] Medical History Paroxysmal atrial fibrillation COVID-19 Abnormal myocardial perfusion study Smoking Other and unspecified hyperlipidemia Essential hypertension Type 2 diabetes mellitus with unspecified complications Atherosclerotic cardiovascular disease Wears partial dentures Arthritis Depression Expressive aphasia CVA (cerebral vascular accident) Lab test negative for COVID-19 virus Hx of cardiac murmur Hyperlipidemia Diabetes Hypertension Surgical History Status post aortic valve replacement with bioprosthetic valve History of excision of pilonidal cyst Hx of dilation and curettage Family History Father Heart attack Mother Heart attack Social History Household Members: None Housing: House Are you a primary wound care technician to a significant other at home: Yes () Do you presently have visiting nurse or other home services: No Alcohol intake: never Patient Tobacco Use Status: Former Tobacco user Tobacco use type: Cigarette Cigarette Packs Per Day: 1 Years Smoked: 62 Second Hand Smoke Exposure: No service: No Current occupational status: employed and retired Review of Systems Const All systems reviewed & are unremarkable except as noted in HPI and below Reports no additional complaints ENT Reports Normal hearing present Card Denies chest pain, Denies chest pain at rest, Denies chest pain with activity and Denies pedal edema Resp Denies cough GI Denies abdominal pain Musc Denies abnormal gait, Denies muscle cramps and Denies radiating pain into limb Skin/Breast Denies skin ulcer and Denies wounds Neuro Reports Normal hearing present and Denies abnormal gait Psych Reports no additional complaints Physical Exam Vital Signs: Last Vital Signs Pulse 77 03/21/23 10:42 BP 138/76 03/21/23 10:42 Pulse Ox 96 03/21/23 10:42 Oxygen Delivery Method Room Air 03/21/23 10:42 BMI result Body Mass Index 27.9 Const General: cooperative, healthy appearing and comfortable Orientation/consciousness: oriented to person, oriented to place and oriented to time HEENT Head: Yes normal to inspection Neck Neck: Yes normal visual inspection Carotids: no bruits Chest Chest palpation & inspection: normal inspection of the chest Resp Effort & Inspection: normal respiratory effort and able to speak in complete sentences Auscultation: clear to auscultation bilaterally, no crackles, no rales, no rhonchi and no wheezes Cardio Other: DP and PT signals only on right leg Rate: regular rate Rhythm: regular rhythm Heart sounds: S1 normal heart sound present and S2 normal heart sound present Bruits: no carotid bruits Peripheral pulses: Peripheral pulses 2+ throughout GI Inspection: Yes normal to inspection Skin Other: Right calf - 2 cm ulcer with fibrinous necrotic material below Wounds: no wounds Hair: normal Neuro General: oriented to person, oriented to place and oriented to time Cranial nerves: Yes CN's II-XII intact bilaterally and Yes Normal hearing present Cognition (Neuro): normal cognition Motor exam (neuro): 5/5 motor strength present throughout Extrem Other: venous exam: No significant superficial varicosities or spider telangiectasias, minimal edema Right 2nd toe darkened area at tip General: No clubbing, No cyanosis and No edema Psych Appearance: grossly normal Mental Status: mental status grossly normal Speech and movement: Normal speech and movement present Assessment & Plan Assessment & Plan (1) PAD (peripheral artery disease): Code(s): I73.9 - Peripheral vascular disease, unspecified Plan: In short there is concern about peripheral vascular disease of that right lower extremity. She has nonhealing ulcers and the mere fact that she has recent CABG and prior carotid endarterectomy is indicative peripheral vascular disease. I have taken the liberty of ordering noninvasive arterial testing of the right lower extremity. I will try to expedite this as well. It appears that she currently is having local wound care by her cardiac surgeon with alginate dressings which I agree with. Once again we will obtain noninvasive testing and will have the patient follow-up. 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 She appears to be doing relatively well with that. We will get lower extremities evaluated and we will get her scheduled once again for routine surveillance regarding her carotids. We did discuss routine risk factor modification. 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
== END 2023-03-21 11:13 | disposition home or self-care (01) ==
PROVIDERS: PCP Internal Medicine; Visit Provider Surgery Vascular Surgery
DX: I73.9 Peripheral vascular disease, unspecified (principal); I63.232 Cerebral infarction due to unspecified occlusion or stenosis of left carotid arteries
CPT/HCPCS: 99213

== ENCOUNTER → 2023-03-21 10:32 | Outpatient (BNVA) | payer MEDICARE, SELFPAY | PROVIDERS: PCP Internal Medicine; Visit Provider Surgery Vascular Surgery | DX: I63.232 Cerebral infarction due to unspecified occlusion or stenosis of left carotid arteries (principal); I73.9 Peripheral vascular disease, unspecified | CPT/HCPCS: 99212 ==

== ENCOUNTER 2023-04-15 13:50 | Outpatient (REF) | payer MEDICARE, SELFPAY ==
--- NOTE | ~2023-04-15 | US_ITS ---
EXAMINATION: US RETROPERITONEAL LIMITED (AORTA) Noninvasive assessment of the right lower extremities with ARTERIAL DUPLEX and ANKLE BRACHIAL INDICES (ABIs). CLINICAL INFORMATION: Peripheral vascular disease with nonhealing ulcer of the right foot. COMPARISON: Noncontrast CT of the abdomen pelvis from 02/12/2021 TECHNIQUE: Ortiz-scale, color Doppler and spectral Doppler evaluation of the abdominal aorta. Duplex Doppler techniques with waveform analysis and measurement of velocities in the right common femoral, profunda femoris, superficial femoral, popliteal and tibial arteries were performed. Additionally, ankle pulse volume recordings, ankle pressure measurements and ankle brachial indices were obtained of the lower extremity arterial system bilaterally. The study was performed only at rest. FINDINGS: Aorta: Aorta is normal in caliber with diffuse atherosclerotic wall calcifications. The measurements of the aorta in maximum AP and transverse dimensions respectively are as follows: Proximal: 2.5 x 2.2 cm. Mid: 1.9 x 1.7 cm. Distal: 2.2 x 1.9 cm. PSV: 84 cm/s. Monophasic waveforms Duplex Doppler ultrasound of the right iliac arteries demonstrates monophasic waveforms with maximum peak systolic velocity of 112 cm/s. DIRECT DUPLEX DOPPLER FINDINGS: RIGHT LEG: Common femoral artery: Occluded with heavily calcified plaque Profunda femoris artery: 44.9 cm/s, phasicity: Monophasic Superficial femoral artery (proximal): Occluded with heavily calcified plaque Superficial femoral artery (mid): Occluded with heavily calcified plaque Superficial femoral artery (distal): 31 cm/s, phasicity: Monophasic Popliteal artery: 43 cm/s, phasicity: Monophasic Posterior tibial artery: 29 cm/s, phasicity: Monophasic Peroneal artery: 20 cm/s, phasicity: Monophasic Anterior tibial artery: 18 cm/s, phasicity: Monophasic Dorsalis pedis artery: 13 cm/s, phasicity:Monophasic ANKLE PRESSURES: Right: PT greater than 200, DP greater than 200 Left: PT?greater than 200, DP?nondetectable ANKLE PVR WAVEFORMS: Right: Absent Left: Absent US/US abdominal aortic aneurysm IMPRESSION: Diffuse atherosclerotic disease with occlusion of the right common femoral artery and proximal and mid superficial femoral artery with reconstitution of the popliteal artery. Monophasic waveforms are seen in the visualized arteries of the right lower extremity. Aorta is normal in caliber with monophasic waveforms in the aorta and right iliac arteries. Cannot exclude a nonvisualized stenosis in the iliac arteries. Although monophasic waveforms could be due to more distal femoral artery occlusions.
== END 2023-04-15 13:51 | disposition home or self-care (01) ==
LOC: HO.US 13:50
PROVIDERS: PCP Internal Medicine; Visit Provider Surgery Vascular Surgery
DX: I73.9 Peripheral vascular disease, unspecified (principal)
CPT/HCPCS: 76706; 93923; 93926

== ENCOUNTER 2023-04-22 12:43 | Emergency (ER) | payer MEDICARE, SELFPAY ==
--- NOTE | ~2023-04-22 | US_ITS ---
EXAMINATION: Noninvasive assessment of the right lower extremity with ARTERIAL DUPLEX . CLINICAL INFORMATION: Peripheral vascular disease TECHNIQUE: Duplex Doppler techniques with waveform analysis and measurement of velocities in the right common femoral, profunda femoris, superficial femoral, popliteal and tibial arteries were performed. COMPARISON: Ultrasound from 04/15/2023 FINDINGS: DIRECT DUPLEX DOPPLER FINDINGS: RIGHT LEG: Common femoral artery: 163 cm/s, phasicity: Monophasic. Heavily calcified plaque with shadowing Profunda femoris artery: 36 cm/s, phasicity: Monophasic Superficial femoral artery (proximal): Occluded Superficial femoral artery (mid): Occluded Superficial femoral artery (distal): 87 cm/s, phasicity: Monophasic Popliteal artery: 27 cm/s, phasicity: Monophasic Posterior tibial artery: 28 cm/s, phasicity: Monophasic Peroneal artery: 10 cm/s, phasicity: Monophasic Anterior tibial artery: 7 cm/s, phasicity: Monophasic Dorsalis pedis artery: 5 cm/s, phasicity:Monophasic US/US arterial duplex LE RT IMPRESSION: Diffuse atherosclerotic disease with extensive heavily calcified plaque in the right common femoral artery and monophasic flow. There is chronic occlusion of the right superficial femoral artery with reconstituted flow within the popliteal artery and below-knee runoff vessels as described above. No significant change compared to the prior ultrasound performed 1 week ago
--- NOTE | ~2023-04-22 | XR_ITS ---
EXAMINATION: Right foot and right ankle. CLINICAL INDICATION: Necrotic toes. COMPARISON: None. TECHNIQUE: 3 views right ankle and 2 views right foot. FINDINGS: Right ankle 3 views. There is a small calcaneal and retrocalcaneal enthesophytes. There is dorsal talonavicular spurring. No visible acute fracture, dislocation or spurring seen. The soft tissues are normal. Right foot: There is no visible acute fracture, dislocation or subluxation seen. There is a small calcification or loose body seen adjacent to calcaneus likely old avulsion injury. There is no periarticular spurring, loose bodies are bony erosive changes. The soft tissues are normal. XR/XR foot RT min 3V IMPRESSION: 1. Small calcaneal heel and retrocalcaneal enthesophytes. No visible acute fracture, dislocation or subluxation seen. 2. Unremarkable right foot exam except for dorsal talonavicular spurring.
--- NOTE | ~2023-04-22 | XR_ITS ---
EXAMINATION: Right foot and right ankle. CLINICAL INDICATION: Necrotic toes. COMPARISON: None. TECHNIQUE: 3 views right ankle and 2 views right foot. FINDINGS: Right ankle 3 views. There is a small calcaneal and retrocalcaneal enthesophytes. There is dorsal talonavicular spurring. No visible acute fracture, dislocation or spurring seen. The soft tissues are normal. Right foot: There is no visible acute fracture, dislocation or subluxation seen. There is a small calcification or loose body seen adjacent to calcaneus likely old avulsion injury. There is no periarticular spurring, loose bodies are bony erosive changes. The soft tissues are normal. XR/XR ankle RT min 3V IMPRESSION: 1. Small calcaneal heel and retrocalcaneal enthesophytes. No visible acute fracture, dislocation or subluxation seen. 2. Unremarkable right foot exam except for dorsal talonavicular spurring.
[2023-04-22 12:58] VITALS: BP 147/58; PULSE 66; RESP 17; TEMP 36.2; O2SAT 94; BMI 29.4
--- NOTE | 2023-04-22 13:02 | ED_ITS ---
HPI - General Adult General Chief complaint: Extremity Problem Stated complaint: r foot issue Related Data Home Medications Medication Instructions Recorded Confirmed apixaban 5 mg tablet (Eliquis) 5 mg PO BID 10/29/22 01/24/23 cholecalciferol (vitamin D3) 50 50 mcg PO DAILY 10/29/22 01/24/23 mcg (2,000 unit) capsule multivitamin with iron-mineral 1 tab PO DAILY 10/29/22 01/24/23 sertraline 50 mg tablet 50 mg PO DAILY 10/29/22 01/24/23 Previous Rx's Medication Instructions Recorded aspirin 81 mg tablet,delayed 81 mg PO DAILY #30 tabs 03/02/20 release pyridoxine (vitamin B6) 100 mg 100 mg PO DAILY 90 days #90 tabs 03/01/21 tablet atorvastatin 80 mg tablet 80 mg PO BEDTIME #90 tabs 10/17/22 metoprolol succinate 25 mg 25 mg PO DAILY #90 tabs 10/29/22 tablet,extended release 24 hr amlodipine 10 mg tablet 10 mg PO DAILY #90 tabs 01/24/23 Allergies Allergy/AdvReac Type Severity Reaction Status Date / Time amoxicillin Allergy Mild RASH Verified 04/23/23 10:05 codeine Allergy Nightmare Verified 04/23/23 10:06 [facility] Past Medical History Medical History Paroxysmal atrial fibrillation COVID-19 Abnormal myocardial perfusion study Smoking Other and unspecified hyperlipidemia Essential hypertension Type 2 diabetes mellitus with unspecified complications Atherosclerotic cardiovascular disease Wears partial dentures Arthritis Depression Expressive aphasia CVA (cerebral vascular accident) Lab test negative for COVID-19 virus Hx of cardiac murmur Hyperlipidemia Diabetes Hypertension Surgical History Status post aortic valve replacement with bioprosthetic valve History of excision of pilonidal cyst Hx of dilation and curettage Family History Family History Father Heart attack Mother Heart attack Social History Social History Household Members: None Housing: House Are you a primary resident care provider to a significant other at home: Yes () Do you presently have visiting nurse or other home services: No Alcohol intake: never Patient Tobacco Use Status: Former Tobacco user Tobacco use type: Cigarette Cigarette Packs Per Day: 1 Years Smoked: 62 Smoked in Last 30 Days: Yes Second Hand Smoke Exposure: No Use of substances other than those prescribed or required for medical reasons: No Advance Directives: Yes Advance Directives on File: Yes Advance Directives Date on File: 03/13/20 service: No Current occupational status: employed and retired Physical Exam ED Vital Signs: Vital Signs - 24 hr 04/22/23 12:58 Temperature 97.1 F Pulse Rate 66 Respiratory Rate 17 Blood Pressure 147/58 H Pulse Oximetry 94 Oxygen Delivery Method Room Air BMI result Body Mass Index 29.4 Course Course Course Narrative: RME:? 78 yo female hx of PAD, LBBB, cardiomyopathy, paroxysmal afib, anemia, T2DMs, HTN, CVA , current tobacco smoker (6 cigarettes/day), here from [facility] office for discoloration of all toes to right foot. Endorses having a CABG performed in September 2022 and having issues with her right foot since. She was seen at a [facility] office this morning for urgent follow-up and sent here due to discoloration of all 5 toes to the right foot. She follows with Dr. Sanchez, had duplex ultrasound of right lower extremity on 04/15/2023 which shows diffuse atherosclerotic disease with occlusion of the right common femoral artery and proximal and mid superficial femoral artery with reconstitution of the popliteal artery. Labs, US, and XR ordered Full HPI, ROS and PE to be performed by the primary ED provider. Reevaluation(s) Reevaluation #1: Patient left the emergency department without completing treatment. Medical Decision Making Lab Data 04/22/23 13:22 04/22/23 13:22 Labs: Lab Results 04/22/23 Range/Units 13:22 WBC 9.8 (4.8-10.8) X10*3/uL RBC 3.57 L (4.20-5.50) X10*6/uL Hgb 11.1 L (12.0-16.0) g/dl Hct 34.8 L (37.0-47.0) % MCV 97.5 (80.0-98.0) fL MCH 31.1 (27.0-33.0) pg MCHC 31.9 (31.0-35.0) g/dl RDW 14.4 (11.0-16.0) % Plt Count 245 (160-400) X10*3/uL MPV 10.0 (9.4-12.3) fL Immature Gran % (Auto) 0.4 (0.0-0.4) % Neut % (Auto) 75.1 H (45-73) % Lymph % (Auto) 16.1 L (20-40) % [place] % (Auto) 5.6 (2-11) % Eos % (Auto) 2.2 (0-4) % Baso % (Auto) 0.6 (0-2) % Lymph # (Auto) 1.6 (1.2-4.9) X10*3/uL [place] # (Auto) 0.6 (0.1-1.2) X10*3/uL Eos # (Auto) 0.2 (0.0-0.4) X10*3/uL Baso # (Auto) 0.1 (0.0-0.2) X10*3/uL Abs Immat Gran (auto) 0.04 H (0.00-0.03) X10*3/uL Absolute Neuts (auto) 7.4 (2.0-8.3) x10*3/uL Absolute Nucleated RBC 0.000 (0.0-0.012) X10*3/uL Nucleated RBC % (auto) 0.0 (0.0-0.2) /100WBC ESR 42 H (0-20) MM/HR Sodium 140 (135-145) mmol/L Potassium 4.6 (3.3-5.1) mmol/L Chloride 105 (96-108) mmol/L Carbon Dioxide 26 (22-29) mmol/L Anion Gap 14 (12-20) BUN 21 H (9-16) mg/dL Creatinine 1.18 (0.5-1.4) mg/dL Estim Creat Clear Calc 42.3 Estimated GFR 45 Random Glucose 203 H (60-115) mg/dL Lactic Acid 1.9 (0.5-2.0) mmol/L Calcium 9.9 (8.4-10.2) mg/dL Magnesium 1.8 (1.6-2.6) mg/dL C-Reactive Protein < 0.10 (< or = 0.50) mg/dL Lipase 89 H (8-78) U/L Discharge Plan Discharge Clinical Impression: Chronic toe pain, bilateral Patient Disposition: Left W/O Completing Treatment Prescriptions: No Action atorvastatin 80 mg tablet 80 mg PO BEDTIME Qty: 90 3RF aspirin 81 mg Tablet,Delayed Release (Dr/Ec) 81 mg PO DAILY Qty: 30 0RF pyridoxine (vitamin B6) 100 mg tablet 100 mg PO DAILY 90 Days Qty: 90 1RF Eliquis 5 mg tablet 5 mg PO BID sertraline 50 mg tablet 50 mg PO DAILY multivitamin with iron-mineral Tablet 1 tab PO DAILY cholecalciferol (vitamin D3) 50 mcg (2,000 unit) capsule 50 mcg PO DAILY metoprolol succinate 25 mg tablet extended release 24 hr 25 mg PO DAILY Qty: 90 3RF amlodipine 10 mg tablet 10 mg PO DAILY Qty: 90 3RF Discharge Date/Time: 04/22/23 18:17
[2023-04-22 13:28] LABS: MANUAL DIFF FLAG NO
[2023-04-22 13:30] LABS: Basophils Absolute Auto 0.1 X10*3/uL (0.0-0.2); Basophils Percent Auto 0.6 % (0-2); Eosinophils Absolute Auto 0.2 X10*3/uL (0.0-0.4); Eosinophils Percent Auto 2.2 % (0-4); Hematocrit 34.8 % (37.0-47.0); Hemoglobin 11.1 g/dl (12.0-16.0); Imm Gran Abs Auto 0.04 X10*3/uL (0.00-0.03); Imm Gran Pct Auto 0.4 % (0.0-0.4); Lymphocytes Absolute Auto 1.6 X10*3/uL (1.2-4.9); Lymphocytes Percent Auto 16.1 % (20-40); Mean Corpuscular HGB Conc 31.9 g/dl (31.0-35.0); Mean Corpuscular Hemoglobin 31.1 pg (27.0-33.0); Mean Corpuscular Volume 97.5 fL (80.0-98.0); Monocytes Absolute Auto 0.6 X10*3/uL (0.1-1.2); Monocytes Percent Auto 5.6 % (2-11); Neutrophils Absolute Auto 7.4 x10*3/uL (2.0-8.3); Neutrophils Percent Auto 75.1 % (45-73); Platelet Count 245 X10*3/uL (160-400); Red Blood Count 3.57 X10*6/uL (4.20-5.50); Red Cell Distribution Width 14.4 % (11.0-16.0); White Blood Count 9.8 X10*3/uL (4.8-10.8)
[2023-04-22 13:45] LABS: Lactic Acid 1.9 mmol/L (0.5-2.0)
[2023-04-22 13:49] LABS: Anion Gap 14 (12-20); Blood Urea Nitrogen 21 mg/dL (9-16); C Reactive Protein < 0.10 mg/dL (< or = 0.50); Calcium 9.9 mg/dL (8.4-10.2); Carbon Dioxide 26 mmol/L (22-29); Chloride 105 mmol/L (96-108); Creatinine Clr Calc Pharmacy 42.3; Estimated Glomerular Filt Rate 45; Glucose Random 203 mg/dL (60-115); Lipase 89 U/L (8-78); Magnesium 1.8 mg/dL (1.6-2.6); Potassium 4.6 mmol/L (3.3-5.1); Sodium 140 mmol/L (135-145)
[2023-04-22 14:10] LABS: Erythrocyte Sedimentation Rate 42 MM/HR (0-20)
== END 2023-04-22 18:17 | disposition left against medical advice (07) ==
LOC: HO.ED 18:09
PROVIDERS: Physician Assistant Medical; Emergency Provider Emergency Medicine; PCP Internal Medicine
DX: M79.674 Pain in right toe(s) (principal); M79.675 Pain in left toe(s); I73.9 Peripheral vascular disease, unspecified; I10 Essential (primary) hypertension; I48.0 Paroxysmal atrial fibrillation; Z79.01 Long term (current) use of anticoagulants; E11.9 Type 2 diabetes mellitus without complications
CPT/HCPCS: 36415; 73610; 73630; 80048; 83605; 83690; 83735; 85025; 85652; 86140; 93926; 99281; 99284

== ENCOUNTER 2023-04-23 10:00 | Emergency (ER) | payer MEDICARE, SELFPAY ==
[2023-04-23 10:07] VITALS: BP 146/41; PULSE 75; RESP 18; TEMP 36.6; O2SAT 98; BMI 29.3
[2023-04-23 13:22] VITALS: BP 135/63; PULSE 66; RESP 18; TEMP 36; O2SAT 95
--- NOTE | 2023-04-23 13:25 | ED_ITS ---
HPI - General Adult General Chief complaint: Wound/Laceration Stated complaint: toes black, circulatory problem in legs Time Seen by Provider: 04/23/23 17:43 Source: patient Mode of arrival: ambulatory Limitations: no limitations History of Present Illness HPI narrative: Patient with peripheral arterial disease status post CABG and bioprosthetic aortic valve replacementon 08/28/22, with history of paroxysmal AFib on Eliquis been having nonhealing wound in the right leg at the site of graft taken and dry blackish discoloration of the right 3rd toe no pus discharge no fever no chills patient was seen by counter intelligence and started on antibiotics patient had a arterial Doppler done yesterday while waiting for the ED physician to see but could not see the ED physician and left. Patient has arterial Doppler done on 04/15 and 04/22 without any significant change had proximal left superficial femoral artery occluded with reconstituted flow within the popliteal artery and below knee. Related Data Home Medications Medication Instructions Recorded Confirmed apixaban 5 mg tablet (Eliquis) 5 mg PO BID 10/29/22 01/24/23 cholecalciferol (vitamin D3) 50 50 mcg PO DAILY 10/29/22 01/24/23 mcg (2,000 unit) capsule multivitamin with iron-mineral 1 tab PO DAILY 10/29/22 01/24/23 sertraline 50 mg tablet 50 mg PO DAILY 10/29/22 01/24/23 Previous Rx's Medication Instructions Recorded aspirin 81 mg tablet,delayed 81 mg PO DAILY #30 tabs 03/02/20 release pyridoxine (vitamin B6) 100 mg 100 mg PO DAILY 90 days #90 tabs 03/01/21 tablet atorvastatin 80 mg tablet 80 mg PO BEDTIME #90 tabs 10/17/22 metoprolol succinate 25 mg 25 mg PO DAILY #90 tabs 10/29/22 tablet,extended release 24 hr amlodipine 10 mg tablet 10 mg PO DAILY #90 tabs 01/24/23 Allergies Allergy/AdvReac Type Severity Reaction Status Date / Time amoxicillin Allergy Mild RASH Verified 04/23/23 10:05 codeine Allergy Nightmare Verified 04/23/23 10:06 Review of Systems 2 Review of Systems: Yes all other systems are reviewed and are negative PMFSH Past Medical History Medical History Paroxysmal atrial fibrillation COVID-19 Abnormal myocardial perfusion study Smoking Other and unspecified hyperlipidemia Essential hypertension Type 2 diabetes mellitus with unspecified complications Atherosclerotic cardiovascular disease Wears partial dentures Arthritis Depression Expressive aphasia CVA (cerebral vascular accident) Lab test negative for COVID-19 virus Hx of cardiac murmur Hyperlipidemia Diabetes Hypertension Surgical History Status post aortic valve replacement with bioprosthetic valve History of excision of pilonidal cyst Hx of dilation and curettage Family History Family History Father Heart attack Mother Heart attack Social History Social History Household Members: None Housing: House Are you a primary child adolescent care to a significant other at home: Yes () Do you presently have visiting nurse or other home services: No Alcohol intake: never Patient Tobacco Use Status: Former Tobacco user Tobacco use type: Cigarette Cigarette Packs Per Day: 1 Years Smoked: 62 Smoked in Last 30 Days: Yes Second Hand Smoke Exposure: No Use of substances other than those prescribed or required for medical reasons: No Advance Directives: Yes Advance Directives on File: Yes Advance Directives Date on File: 03/13/20 service: No Current occupational status: employed and retired Physical Exam ED Vital Signs: Vital Signs - 24 hr 04/23/23 10:07 04/23/23 13:22 04/23/23 17:06 Temperature 98 F 96.8 F 97.8 F Pulse Rate 75 66 52 Respiratory Rate 18 18 18 Blood Pressure 146/41 H 135/63 149/57 H Pulse Oximetry 98 95 97 Oxygen Delivery Method Room Air Room Air Room Air BMI result Body Mass Index 29.3 Appearance: Alert. Oriented X3. No acute distress. Eyes: PERRLA, No Nystagmus ENT: Pharynx normal. Oral Mucosa moist Neck: Normal inspection. Neck supple. CVS: Normal heart rate and rhythm. Pulses normal. Respiratory: No respiratory distress. Equal air entry bilateral, Abdomen: Soft and nontender. Bowel sounds are present, Skin: Skin warm and dry. Normal skin color. Normal skin turgor. Extremities: No lower extremity edema. No calf tenderness nonhealing wound right leg dry gangrene right 3rd toe in the picture as described palpable dorsalis pedis on the right foot Neuro: Oriented X 3. No motor deficit. No sensory deficit.No cerebellar signs , cranial nerves II-XII intact Course Course Course Narrative: RME- 78-year-old female presents for evaluation right leg pain and black toes. She was seen by her counter intelligence yesterday, she had an arterial ultrasound of the right lower extremity as well as labs yesterday. She left without being seen. She was told to come back to the ER after her counter intelligence discussed with Dr. Richardson Medical Decision Making Medical Decision Making [facility] Narrative: Patient with peripheral arterial disease on Eliquis with occluded superficial femoral artery on the right leg with open collaterals with dry gangrene of the 3rd toe case discussed with Dr. richardson vascular who has been following the patient as outpatient advised to see the patient as outpatient Differential Diagnosis Differential Diagnoses: The differential diagnosis associated with the presentation includes Peripheral artery disease/infected wound Independent Interpretation I performed an independent interpretation of an: Ultrasound Radiology Impression Discussion of test interpretation with radiology: I have reviewed the radiologist's reading. Radiologist Impression: Peripheral arterial disease Discharge Plan Discharge Clinical Impression: PAD (peripheral artery disease), Dry gangrene, Chronic wound Patient Disposition: Home, Self-Care Instructions: Peripheral Artery Disease (ED), Gangrene (DC), Chronic Wounds (ED) Additional Instructions: Care of the wound as advised Continue Eliquis Continue doxycycline as prescribed by Podiatry See Dr. Richardson as outpatient for further management Prescriptions: No Action atorvastatin 80 mg tablet 80 mg PO BEDTIME Qty: 90 3RF aspirin 81 mg Tablet,Delayed Release (Dr/Ec) 81 mg PO DAILY Qty: 30 0RF pyridoxine (vitamin B6) 100 mg tablet 100 mg PO DAILY 90 Days Qty: 90 1RF Eliquis 5 mg tablet 5 mg PO BID sertraline 50 mg tablet 50 mg PO DAILY multivitamin with iron-mineral Tablet 1 tab PO DAILY cholecalciferol (vitamin D3) 50 mcg (2,000 unit) capsule 50 mcg PO DAILY metoprolol succinate 25 mg tablet extended release 24 hr 25 mg PO DAILY Qty: 90 3RF amlodipine 10 mg tablet 10 mg PO DAILY Qty: 90 3RF Interventions: ED Discharge Assessment Last Done: 04/23/23 18:59 Discharge Date/Time: 04/23/23 19:00
[2023-04-23 17:06] VITALS: BP 149/57; PULSE 52; RESP 18; TEMP 36.6; O2SAT 97
--- NOTE | 2023-04-23 17:15 | PC.NURSE ---
Pt awake, alert and oriented. Breathing even and unlabored. Skin warm and dry. Pt reports wound on right food and right lower leg (below knee area) since her cardiac surgery in August 2022. Pt being followed through wound care at [facility]. Pt reports toes on right foot turning black over the last month, pts doctor told her to come to ED. Pt reports intermittent pain in right leg, sharp and shooting 10/10. Pt denies CP, SOB, N/V/D, fevers, recent injuries.
== END 2023-04-23 19:00 | disposition home or self-care (01) ==
PROVIDERS: Emergency Provider Internal Medicine; PCP Internal Medicine
DX: I73.89 Other specified peripheral vascular diseases (principal); Z79.899 Other long term (current) drug therapy; Z79.01 Long term (current) use of anticoagulants
CPT/HCPCS: 99284

== ENCOUNTER 2023-04-26 13:01 | Outpatient (RCR) | payer MEDICARE, SELFPAY | END 2023-07-27 11:00 | disposition other institution (70) | LOC: HO.WCC 13:01 | PROVIDERS: PCP Internal Medicine; Visit Provider Physician Assistant | DX: E11.621 Type 2 diabetes mellitus with foot ulcer (principal); E11.51 Type 2 diabetes mellitus with diabetic peripheral angiopathy without gangrene; L97.812 Non-pressure chronic ulcer of other part of right lower leg with fat layer exposed; L97.512 Non-pressure chronic ulcer of other part of right foot with fat layer exposed; L98.492 Non-pressure chronic ulcer of skin of other sites with fat layer exposed; T81.31XA Disruption of external operation (surgical) wound, not elsewhere classified, initial encounter; E11.40 Type 2 diabetes mellitus with diabetic neuropathy, unspecified; F17.210 Nicotine dependence, cigarettes, uncomplicated; I10 Essential (primary) hypertension; Z86.718 Personal history of other venous thrombosis and embolism; Z86.73 Personal history of transient ischemic attack (TIA), and cerebral infarction without residual deficits; I73.9 Peripheral vascular disease, unspecified | CPT/HCPCS: 11042; 17250; 97597; 99212; 99214 ==

== ENCOUNTER 2023-04-29 13:39 | Outpatient (AMB) | payer MEDICARE, SELFPAY ==
--- NOTE | 2023-04-29 13:45 | MHC.OFFVIS ---
Intake Vital Signs 04/29/23 13:46 Height 5 ft 5 in Weight 177 lb 4.026 oz BMI 29.5 BP 136/54 L Blood Pressure Location Lt brachial Position Sitting Pulse 74 Intake Visit Reasons: 3 mth fu Intake Note: 3 month follow up Transportation Sales Consultant Required: No Accompanied by: Daughter Allergies amoxicillin Allergy (Mild, Verified 04/29/23 13:48) RASH codeine Allergy (Verified 04/29/23 13:48) Nightmare Medication List - Last Reconciled 04/29/23 by David Stone MD amlodipine 10 mg PO DAILY apixaban (Eliquis) 5 mg PO BID aspirin 81 mg PO DAILY atorvastatin 80 mg PO BEDTIME cholecalciferol (vitamin D3) 50 mcg PO DAILY metoprolol succinate ER 25 mg PO DAILY multivitamin with iron-mineral 1 tab PO DAILY pyridoxine (vitamin B6) 100 mg PO DAILY 90 days sertraline 50 mg PO DAILY HPI HPI Comments History of Present Illness Details Dia returns for follow-up regarding coronary disease. Last year, she underwent coronary artery bypass surgery as well as bioprosthetic aortic valve replacement. She seems to have had a long hospitalization course. Per documentation, it seems that she underwent this surgery but then had atrial fibrillation rapid rate that required cardioversion as it was unstable. Then it seems echocardiogram had shown anteroseptal, inferoseptal, apical akinesis but she was taken to the labor specialist and grafts are patent. Also had congestive heart failure. LVEF in the 20s. Overall, had a long course and then had a wound VAC in place due to poor healing. Now it seems that the wound VAC has been removed. For the most part, she is doing okay. No cardiac symptoms but she has a lot of issues in the right leg and suspected severe PVD. Awaiting vascular surgery appointment later this week. [facility] Medical History Paroxysmal atrial fibrillation COVID-19 Abnormal myocardial perfusion study Smoking Other and unspecified hyperlipidemia Essential hypertension Type 2 diabetes mellitus with unspecified complications Atherosclerotic cardiovascular disease Wears partial dentures Arthritis Depression Expressive aphasia CVA (cerebral vascular accident) Lab test negative for COVID-19 virus Hx of cardiac murmur Hyperlipidemia Diabetes Hypertension Surgical History Status post aortic valve replacement with bioprosthetic valve History of excision of pilonidal cyst Hx of dilation and curettage Family History Father Heart attack Mother Heart attack Social History Household Members: None Housing: House Are you a primary customer care associate to a significant other at home: Yes () Do you presently have visiting nurse or other home services: No Alcohol intake: never Patient Tobacco Use Status: Former Tobacco user Tobacco use type: Cigarette Cigarette Packs Per Day: 1 Years Smoked: 62 Second Hand Smoke Exposure: No Advance Directives Date on File: 03/13/20 service: No Current occupational status: employed and retired Review of Systems Const Denies weakness ENT Denies dizziness Card Denies chest pain, Denies chest pain with activity, Denies syncope, Denies rapid heart rate, Denies pedal edema, Denies edema, Denies leg edema, Denies lightheadedness, Denies palpitations, Denies dyspnea, Denies dyspnea on exertion and Denies orthopnea Resp Denies cough, Denies dyspnea and Denies dyspnea on exertion GI Denies hematochezia and Denies change in stool character Musc Denies abnormal gait, Denies muscle cramps, Denies muscle weakness, Denies numbness, Denies radiating pain into limb and Denies tingling Neuro Denies abnormal gait, Denies dizziness, Denies syncope, Denies numbness, Denies tingling and Denies weakness Endo Denies palpitations Physical Exam Vital Signs: Last Vital Signs Pulse 74 04/29/23 13:46 BP 136/54 L 04/29/23 13:46 BMI result Body Mass Index 29.5 Const General: comfortable and no acute distress Orientation/consciousness: patient oriented x3 HEENT Other: Unremarkable Head: Yes normal to inspection Neck Neck: Yes normal visual inspection Chest Chest palpation & inspection: normal inspection of the chest Resp Auscultation: clear to auscultation bilaterally Cardio Palpation: normal PMI Heart sounds: S1 normal heart sound present, S2 normal heart sound present, no gallops, no murmurs and no rubs GI Palpation (GI): Soft to palpation Back/Spine/Pelvis Other: unremarkable Skin General skin exam: no rashes or lesions noted Neuro General: patient oriented x3 Extrem General: Yes normal to inspection Psych Mental Status: mental status grossly normal Assessment & Plan Assessment & Plan (1) Atherosclerotic cardiovascular disease: Code(s): I25.10 - Atherosclerotic heart disease of [place] coronary artery without angina pectoris Plan: Status post coronary artery bypass surgery. Continue aspirin, high-dose statins. Check lipids. (2) Status post aortic valve replacement with bioprosthetic valve: Code(s): Z95.3 - Presence of xenogenic heart valve Plan: She also had bioprosthetic aortic valve replacement during the CABG -19mmHg Inspiris valve. Infective endocarditis prophylaxis per protocol. Due to wound VAC, could not get echo in the past. May do it this week if possible. (3) Cardiomyopathy: Code(s): I42.9 - Cardiomyopathy, unspecified Qualifiers: Cardiomyopathy type: ischemic Qualified Code(s): I25.5 - Ischemic cardiomyopathy Plan: Possibly related to atrial fibrillation rapid rate. Per DARA at [facility], LVEF 30-40%. Distal inferoseptal/anteroseptal/apical hypokinesis. [id number] mitral regurgitation. Bioprosthetic aortic valve was okay. May get the echocardiogram done this week. (4) Paroxysmal atrial fibrillation: Code(s): I48.0 - Paroxysmal atrial fibrillation Plan: It seems she underwent cardioversion in the postoperative period. Had been on amiodarone but not anymore. Continue Eliquis. (5) LBBB (left bundle branch block): Code(s): I44.7 - Left bundle-branch block, unspecified Plan: EKG from [facility] from 10/19 shows left bundle-branch block. Can be followed periodically. 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 Being also concurrently followed up with vascular surgery. (7) Essential hypertension: Code(s): I10 - Essential (primary) hypertension Plan: Currently on amlodipine. Blood pressure is borderline. In the past, she was also on losartan. May be necessary in the future (8) Smoking: Code(s): F17.200 - Nicotine dependence, unspecified, uncomplicated Plan: Unfortunately, she has resumed smoking. She is aware of the various cardiac as well as vascular issues including . She states that she really does not care anymore. Daughter was also part of the conversation. (9) Peripheral vascular disease: Code(s): I73.9 - Peripheral vascular disease, unspecified Plan: She is meeting vascular surgery later this week. She would be high risk for any major vascular surgery procedures. We discussed about this today. Any case, will need to review the echocardiogram before proceeding. Plan Total time spent including review of data, counseling, documentation, coordination of care-45 minutes. Discussed with daughter who came for the appointment. Orders: Orders Lipid Panel Today E78.5 - Hyperlipidemia, unspecified, I70.90 - Unspecified atherosclerosis LDL Cholesterol Direct Today E78.2 - Mixed hyperlipidemia, I70.90 - Unspecified atherosclerosis Coding Level of Care Code Est Pt Level 5 (58797) Diagnoses Atherosclerotic cardiovascular disease I25.10 Status post aortic valve replacement with bioprosthetic valve Z95.3 Ischemic cardiomyopathy I25.5 Cardiomyopathy type: ischemic Paroxysmal atrial fibrillation I48.0 LBBB (left bundle branch block) I44.7 Stroke due to stenosis of left carotid artery I63.232 Essential hypertension I10 Smoking F17.200 Peripheral vascular disease I73.9
[2023-04-29 13:46] VITALS: BP 136/54; PULSE 74; BMI 29.5
== END 2023-04-29 14:10 | disposition home or self-care (01) ==
PROVIDERS: PCP Internal Medicine; Visit Provider Internal Medicine
DX: I25.10 Atherosclerotic heart disease of native coronary artery without angina pectoris (principal); Z95.3 Presence of xenogenic heart valve; I25.5 Ischemic cardiomyopathy; I48.0 Paroxysmal atrial fibrillation; I44.7 Left bundle-branch block, unspecified; I63.232 Cerebral infarction due to unspecified occlusion or stenosis of left carotid arteries; I10 Essential (primary) hypertension; F17.200 Nicotine dependence, unspecified, uncomplicated; I73.9 Peripheral vascular disease, unspecified
CPT/HCPCS: 99215

== ENCOUNTER → 2023-04-29 13:39 | Outpatient (BNVA) | payer MEDICARE, SELFPAY | PROVIDERS: PCP Internal Medicine; Visit Provider Internal Medicine | DX: I25.10 Atherosclerotic heart disease of native coronary artery without angina pectoris (principal); I25.5 Ischemic cardiomyopathy; I48.0 Paroxysmal atrial fibrillation; I44.7 Left bundle-branch block, unspecified; I10 Essential (primary) hypertension; I63.232 Cerebral infarction due to unspecified occlusion or stenosis of left carotid arteries; I73.9 Peripheral vascular disease, unspecified; F17.210 Nicotine dependence, cigarettes, uncomplicated; Z95.3 Presence of xenogenic heart valve; Z79.01 Long term (current) use of anticoagulants; Z79.82 Long term (current) use of aspirin; Z79.899 Other long term (current) drug therapy | CPT/HCPCS: 99212 ==

== ENCOUNTER → 2023-05-01 08:45 | Outpatient (REF) | payer MEDICARE, SELFPAY ==
--- NOTE | 2023-05-01 08:53 | CA_ITS ---
Transthoracic Echocardiogram Patient (Last, First, Middle): Dia Dong E Gender: Female Date of : 1945 Age: 78 Procedure Date: 05/01/2023 Procedure Type: Transthoracic Echocardiogram Location: OP Height: 165.1 cm Weight: 81.65 kg BSA: 1.89 m2 Heart Rate: bpm BP: 134 / 80 mmHg Engine Pilot: TOREY Referring MD: David Stone MD Symptoms: I42.9 - Cardiomyopathy, unspecified Study Quality: Adequate with contrast ECG Rhythm: Sinus Conclusions: - The left ventricular systolic function is normal. The calculated ejection fraction is 68% by biplane method. - The apical lateral and apical septum segments are akinetic. - The apex segment is dyskinetic. - A bioprosthetic aortic valve is present. The prosthetic aortic valve appears to be functioning normally. Findings Procedure Information Contrast agent, definity, is being given per protocol without apparent complications. Left Ventricle Normal left ventricular cavity size. There is mildly increased left ventricular wall thickness. The left ventricular systolic function is normal. The calculated ejection fraction is 68% by biplane method. Evidence suggests grade I (mild) diastolic dysfunction. Wall Motion Rest Echo Findings The apical lateral and apical septum segments are akinetic. The apex segment is dyskinetic. Right Ventricle Normal right ventricular cavity size and systolic function. Atria The left atrium is mildly dilated. The right atrium is normal in size. Aortic Valve A bioprosthetic aortic valve is present. The prosthetic aortic valve appears to be functioning normally. The mean gradient is 21 mmHg. There is no aortic valve regurgitation. Elevated gradients and small valve area, but within environmental systems coordinator specifications. (Inspiris 19mm valve) Mitral Valve There is moderate mitral annular calcification. There is trace mitral valve regurgitation. There is no mitral valve stenosis. Pulmonic Valve The pulmonic valve is likely normal. Tricuspid Valve There is no tricuspid valve regurgitation. Tricuspid regurgitation envelope is inadequate for calculation of right ventricular systolic pressure. Great Vessels The asc aorta is normal in size. Venous The inferior vena cava is normal in size and collapses greater than 50% with inspiration. Pericardium/Pleural There is no evidence of pericardial effusion. Prior Study Comparison Changes noted compared to prior study dated: 07/23/2022. s/p AVR. Measurements 2D Linear Measurements IVSd: 1.11 0.6-0.9/0.6-1.0 cm LVIDd: 4.26 3.9-5.3/4.2-5.9 cm LVIDd Index: 2.25 2.4-3.2/2.2-3.1 cm/m2 LVIDs: 2.52 2.0-3.6 cm LVPWd: 1.13 0.7-1.1 cm LA Diam: 3.90 2.7-3.8/3.0-4.0 cm LAIDs Index: 2.06 1.5-2.3 cm/m2 LV Mass: 205.21 67-162/88-224 g LV Mass Index: 108.58 43-95/49-115 g/m2 LVOT Diam: 1.80 3.0+(-)1.3 cm 2D Systolic Function EF 4C: 65.20 >55% EF 2C: 70.60 >55% EF BiP: 67.90 >55% Mitral Valve MV VTI: 0.47 MV Pk Frankie: 1.21 MV Mn Frankie: 0.77 MV Pk Grad: 6.00 MV Mn Grad: 3.00 MV Pk E: 1.05 MV PK A: 1.05 MV Decel Time: 371.00 E/A: 1.00 E'Lateral: 6.64 E'Medial: 5.44 E/E' Med: 19.30 E/E' Lat: 15.80 PHT: 109.00 MVA PHT: 2.02 MVA Continuity: 1.71 Decel Grand: 2.84 Aortic Valve AoV Pk Frankie: 3.16 AoV Mn Frankie: 2.17 AoV VTI: 0.84 AoV Pk Grad: 40.00 Aov Mn Grad: 21.00 AMARILIS Cont.VTI: 0.97 LVOT LVOT Pk Frankie: 1.05 LVOT Mn Frankie: 0.77 LVOT VTI: 0.32 LVOT Pk Grad: 4.00 LVOT Mn Grad: 3.00 LVOT Diam: 1.80 LVOT Area: 2.54 Diastolic Function MV Pk E: 1.05 MV Pk A: 1.05 E/A: 1.00 E'Medial: 5.44 E/E' Med: 19.30 E' Laterial: 6.64 E/E' Lat: 15.80 Right Ventricle TAPSE (mm): 20.40 TVS' Frankie: 10.90 Tricuspid Valve RA Press: 3.00 Great Vessels Aorta Ao Asc: 2.90 2.1-3.4 cm Updated in Other Vendor System with Status of Final David Stone MD electronically signed on 05/03/2023 11:11:16 AM with status of Final
[2023-05-01 10:20] LABS: Cholesterol 140 mg/dL (<200); HDL Cholesterol 52 mg/dL (>40); LDL Cholesterol Calculated 61 mg/dL (<100); Triglycerides 138 mg/dL (<150)
[2023-05-02 13:14] LABS: LDL Cholesterol Direct 65 mg/dL (<100)
== END ==
LOC: HO.CARD 08:45
PROVIDERS: PCP Internal Medicine; Visit Provider Internal Medicine
DX: I42.9 Cardiomyopathy, unspecified (principal); Z95.3 Presence of xenogenic heart valve; I70.90 Unspecified atherosclerosis; E78.2 Mixed hyperlipidemia
CPT/HCPCS: 36415; 80061; 83721; 93306; Q9957

== ENCOUNTER → 2023-05-01 08:53 | Outpatient (BNV) | payer MEDICARE, SELFPAY | PROVIDERS: PCP Internal Medicine; Visit Provider Internal Medicine | DX: I34.81 Nonrheumatic mitral (valve) annulus calcification (principal) | CPT/HCPCS: 93306 ==

== ENCOUNTER 2023-05-02 15:09 | Outpatient (AMB) | payer MEDICARE, SELFPAY ==
[2023-05-02 15:11] VITALS: BP 122/80; PULSE 58; BMI 29.3
--- NOTE | 2023-05-02 15:11 | A.OFFVIS_ITS ---
Intake Vital Signs 05/02/23 15:11 Height 5 ft 5 in Weight 176 lb 5.917 oz BMI 29.3 BP 122/80 Blood Pressure Location Lt brachial Position Sitting Pulse 58 Intake Visit Reasons: follow up Arterial US 04/15/2023 Intake Note: follow-up arterial US results leg pain comes and goes Address Change Clerk: Address Change Clerk Present Accompanied by: Family/Other Allergies amoxicillin Allergy (Mild, Verified 04/29/23 13:48) RASH codeine Allergy (Verified 04/29/23 13:48) Nightmare HPI follow up Arterial US 04/15/2023 HPI Details Very pleasant 78-year-old female presents for follow-up regarding nonhealing ulcer of the right lower extremity. It was a complex course after CABG earlier this year she has a nonhealing sternal wound in addition. Her biggest complaint is this nonhealing point at harvest site. She has had noninvasive testing and now presents for follow-up with family at bedside. [facility] Medical History Paroxysmal atrial fibrillation COVID-19 Abnormal myocardial perfusion study Smoking Other and unspecified hyperlipidemia Essential hypertension Type 2 diabetes mellitus with unspecified complications Atherosclerotic cardiovascular disease Wears partial dentures Arthritis Depression Expressive aphasia CVA (cerebral vascular accident) Lab test negative for COVID-19 virus Hx of cardiac murmur Hyperlipidemia Diabetes Hypertension Surgical History Status post aortic valve replacement with bioprosthetic valve History of excision of pilonidal cyst Hx of dilation and curettage Family History Father Heart attack Mother Heart attack Social History Household Members: None Housing: House Are you a primary wound care nurse to a significant other at home: Yes () Do you presently have visiting nurse or other home services: No Alcohol intake: never Patient Tobacco Use Status: Former Tobacco user Tobacco use type: Cigarette Cigarette Packs Per Day: 1 Years Smoked: 62 Second Hand Smoke Exposure: No Advance Directives Date on File: 03/13/20 service: No Current occupational status: employed and retired Review of Systems Const All systems reviewed & are unremarkable except as noted in HPI and below Reports no additional complaints ENT Reports Normal hearing present Card Denies chest pain, Denies chest pain at rest, Denies chest pain with activity and Denies pedal edema Resp Denies cough GI Denies abdominal pain Musc Denies abnormal gait, Denies muscle cramps and Denies radiating pain into limb Skin/Breast Denies skin ulcer and Denies wounds Neuro Reports Normal hearing present and Denies abnormal gait Psych Reports no additional complaints Physical Exam Vital Signs: Last Vital Signs Pulse 58 05/02/23 15:11 BP 122/80 05/02/23 15:11 BMI result Body Mass Index 29.3 Const General: cooperative, healthy appearing and comfortable Orientation/consciousness: oriented to person, oriented to place and oriented to time HEENT Head: Yes normal to inspection Neck Neck: Yes normal visual inspection Carotids: no bruits Chest Chest palpation & inspection: normal inspection of the chest Resp Effort & Inspection: normal respiratory effort and able to speak in complete sentences Auscultation: clear to auscultation bilaterally, no crackles, no rales, no rhonchi and no wheezes Cardio Rate: regular rate Rhythm: regular rhythm Heart sounds: S1 normal heart sound present and S2 normal heart sound present Bruits: no carotid bruits Peripheral pulses: Peripheral pulses 2+ throughout GI Inspection: Yes normal to inspection Skin Other: Right calf ulcer Wounds: no wounds Hair: normal Neuro General: oriented to person, oriented to place and oriented to time Cranial nerves: Yes CN's II-XII intact bilaterally and Yes Normal hearing present Cognition (Neuro): normal cognition Motor exam (neuro): 5/5 motor strength present throughout Extrem Other: venous exam: No significant superficial varicosities or spider telangiectasias, minimal edema General: No clubbing, No cyanosis and No edema Psych Appearance: grossly normal Mental Status: mental status grossly normal Speech and movement: Normal speech and movement present Results Reviewed Results Reviewed: Noninvasive testing from 04/22/2023 demonstrates monophasic flow all the way down with held V lead calcified plaque of the common femoral. Assessment & Plan Assessment & Plan (1) PAD (peripheral artery disease): Code(s): I73.9 - Peripheral vascular disease, unspecified Plan: Patient notes leg pain when walking distances. I have discussed the pathophysiology of peripheral vascular disease with the patient. I have also discussed risk factor modification. I have reviewed the patient's arterial testing which reveals right inflow disease common femoral disease and occluded SFA. the patient would benefit from a right leg endovascular peripheral angiogram with possible angioplasty, stent, and/or atherectomy. This has been discussed in detail with the patient along with risks, benefits, and complications. This includes but is not limited to bleeding, infection, heart attack, need for emergent surgical repair, limb ischemia, blood vessel damage, bleeding, puncture, kidney injury, bruising, allergic reaction, and skin reaction. The patient demonstrates a clear understanding. We will schedule for the next appropriate time. Thank you for allowing us to assist in this patient's care. Coding Level of Care Code Est Pt Level 4 (14752) Diagnoses PAD (peripheral artery disease) I73.9
== END 2023-05-02 15:59 | disposition home or self-care (01) ==
PROVIDERS: PCP Internal Medicine; Visit Provider Surgery Vascular Surgery
DX: I73.9 Peripheral vascular disease, unspecified (principal)
CPT/HCPCS: 99214

== ENCOUNTER → 2023-05-02 15:09 | Outpatient (BNVA) | payer MEDICARE, SELFPAY | PROVIDERS: PCP Internal Medicine; Visit Provider Surgery Vascular Surgery | DX: I73.9 Peripheral vascular disease, unspecified (principal) | CPT/HCPCS: 99212 ==

== ENCOUNTER 2023-05-15 05:47 | Day surgery (SDC) | payer MEDICARE, SELFPAY ==
[2023-05-15] VITALS (10 sets, daily range): BP systolic 120–139; BP diastolic 46–64; PULSE 45–58; RESP 16; TEMP 36.5–36.7; O2SAT 95–98; BMI 30.2
[2023-05-15 06:36] LABS: MANUAL DIFF FLAG NO
--- NOTE | 2023-05-15 06:42 | ECG_ITS ---
Test Reason : preop Blood Pressure : / mmHG Vent. Rate : 065 BPM Atrial Rate : 065 BPM P-R Int : 206 ms QRS Dur : 132 ms QT Int : 446 ms P-R-T Axes : -03 -22 098 degrees QTc Int : 463 ms Sinus rhythm with Premature atrial complexes Left bundle branch block Abnormal ECG When compared with ECG of 26-FEB-2020 22:24, Premature atrial complexes are now Present Left bundle branch block is now Present Minimal criteria for Anterior infarct are no longer Present Criteria for Inferior infarct are no longer Present Referred By: Gilbert Sanchez Electronically Signed By:FREDY AGUILA MD
[2023-05-15 06:53] LABS: Blood Urea Nitrogen 23 mg/dL (9-16); Creatinine Clr Calc Pharmacy 42.6; Estimated Glomerular Filt Rate 44
[2023-05-15 06:54] LABS: Basophils Absolute Auto 0.1 X10*3/uL (0.0-0.2); Basophils Percent Auto 0.8 % (0-2); Eosinophils Absolute Auto 0.4 X10*3/uL (0.0-0.4); Eosinophils Percent Auto 4.2 % (0-4); Hemoglobin 11.2 g/dl (12.0-16.0); Imm Gran Abs Auto 0.03 X10*3/uL (0.00-0.03); Imm Gran Pct Auto 0.4 % (0.0-0.4); Lymphocytes Absolute Auto 2.1 X10*3/uL (1.2-4.9); Lymphocytes Percent Auto 24.8 % (20-40); Mean Corpuscular Hemoglobin 31.7 pg (27.0-33.0); Mean Corpuscular Volume 99.2 fL (80.0-98.0); Mean Platelet Volume 9.8 fL (9.4-12.3); Monocytes Absolute Auto 0.7 X10*3/uL (0.1-1.2); Monocytes Percent Auto 8.7 % (2-11); Neutrophils Absolute Auto 5.1 x10*3/uL (2.0-8.3); Neutrophils Percent Auto 61.1 % (45-73); Platelet Count 237 X10*3/uL (160-400); Red Blood Count 3.53 X10*6/uL (4.20-5.50); Red Cell Distribution Width 15.3 % (11.0-16.0); White Blood Count 8.3 X10*3/uL (4.8-10.8)
[2023-05-15 07:08] LABS: Glucose, Whole Blood 136 mg/dL (60-115)
--- NOTE | 2023-05-15 09:26 | W.PM.OPN ---
Operative Note Operative Note Date of Service: 05/15/23 Narrative: Angiogram report from [facility] Preoperative diagnosis: Atherosclerosis of Right lower extremity with nonhealing ulcer Postoperative diagnosis: Same Procedure: 1. Ultrasound-guided left common femoral access 2. Aortogram with [] lower extremity runoff Surgeon:Gilbert Sanchez M.D., FACS, RPVI Vp Product Marketing:None Anesthesia: Local with moderate conscious sedation. Total intraservice moderate sedation time was 56 minutes. I monitored the patient's level of consciousness and physiologic status continuously throughout the procedure. Specimens:none Drains:none Estimated blood loss: Less than 10 ml Implant: none Indications: complex 78-year-old female with history coronary artery disease and peripheral vascular disease has nonhealing ulcer from vein harvest site and toes. She now presents for endovascular intervention The patient has signed the informed consent after reviewing risks, complications, benefits, and alternatives previously discussed with the patient. The patient was given the opportunity to ask any additional questions or voice any concerns. All questions were answered to the patient's satisfaction. Procedure in detail: Patient was brought to the angiography suite prior to which a time-out was called for patient identification and site verification. Bilateral groins were prepped and draped in the standard surgical fashion. Under ultrasound guidance left common femoral was punctured with micro puncture needle and wire. Subsequently a precision 4 [place] sheath was then placed. Bentson wire was advanced to the level of the aorta. 4 [place] Flush catheter was brought up and parked at the level of the renal arteries. Aortogram was then undertaken. Catheter was brought down to the level of the iliac bifurcation. Iliacs were subsequently imaged. we could not advance the catheter due to the significant level of calcification. Imaging was taken from the iliac bifurcation on down. There was no amenable endovascular intervention possible. At this point catheter wire sheath was removed. 10 minutes direct pressure was held. Patient tolerated the procedure well returned to recovery with stable vitals Interpretation of films: 1. Ultrasound demonstrates appropriate femoral puncture. Image of which was saved. 2. Aortogram demonstrates appropriate caliber aorta. significant atherosclerotic aortic disease. Near the aortic bifurcation it appeared to be a calcified ring. 3. Iliac images demonstrate Significant calcific disease. Left side had high-grade stenosis at the common iliac with moderate stenosis throughout significant disease at the common femoral at the puncture site. Right side I was able to image the common iliac which appeared to be patent and then the hypogastric. External iliac appear to be totally occluded 4. right Leg Common femoral artery: total occlusion with significant calcific disease. Profundus Femoris: Fed via collaterals Superficial femoral artery: reconstitutes via collaterals after the proximal 3rd. Occludes again at [place]. Reconstitutes at the popliteal Popliteal artery (p1,p2,p3): normal flow through the popliteal below knee vessels difficult to image but I was able to visualize the origin of the trifurcation in appear to have good flow to the trifurcation. Beyond that we were unable to reflux contrast down. Conclusion: 1. Significant disease may need open bypass versus hybrid approach with at minimum common femoral endarterectomy. 2. Anticoagulation status: No change This note is constructed using voice recognition software. While every effort has been made to ensure accuracy, health informatics instructor errors may have been included. Thank you for allowing me to participate in the care of your patient. Yours sincerely, Gilbert Sanchez MD, FACS, R.P.V.I.
[2023-05-15] MEDS: oxyCODONE HCl Immed Release 5 MG TABLET PO (11:30)
[2023-05-15] MEDS: Acetaminophen 325 MG TABLET 650 MG PO (11:31)
== END 2023-05-15 13:54 | disposition home or self-care (01) ==
PROVIDERS: PCP Internal Medicine; Visit Provider Surgery Vascular Surgery
DX: E11.51 Type 2 diabetes mellitus with diabetic peripheral angiopathy without gangrene (principal); I70.238 Atherosclerosis of native arteries of right leg with ulceration of other part of lower leg; I70.235 Atherosclerosis of native arteries of right leg with ulceration of other part of foot; I25.10 Atherosclerotic heart disease of native coronary artery without angina pectoris; Z95.1 Presence of aortocoronary bypass graft; I48.0 Paroxysmal atrial fibrillation; I10 Essential (primary) hypertension; R47.01 Aphasia; E78.5 Hyperlipidemia, unspecified; F32.A Depression, unspecified; Z79.01 Long term (current) use of anticoagulants; Z79.82 Long term (current) use of aspirin; Z79.899 Other long term (current) drug therapy; Z88.1 Allergy status to other antibiotic agents; Z88.5 Allergy status to narcotic agent; Z87.891 Personal history of nicotine dependence; Z66 Do not resuscitate
CPT/HCPCS: 36245; 36246; 36415; 75630; 76937; 82565; 82947; 84520; 85025; 93005; 99152; 99153; A4364; C1769; C1887; J1644; J2250; J2310; J3010; Q9967

== ENCOUNTER → 2023-05-15 05:47 | Outpatient (BNV) | payer MEDICARE, SELFPAY | PROVIDERS: PCP Internal Medicine; Visit Provider Surgery Vascular Surgery | DX: I70.235 Atherosclerosis of native arteries of right leg with ulceration of other part of foot (principal) | CPT/HCPCS: 36245; 75625; 75716; 76937; 99152 ==

== ENCOUNTER → 2023-05-15 06:42 | Outpatient (BNV) | payer MEDICARE, SELFPAY | PROVIDERS: PCP Internal Medicine; Visit Provider Internal Medicine Cardiovascular Disease | DX: R94.31 Abnormal electrocardiogram [ECG] [EKG] (principal) | CPT/HCPCS: 93010 ==

== ENCOUNTER 2023-05-29 09:12 | Outpatient (AMB) | payer MEDICARE, SELFPAY ==
--- NOTE | 2023-05-29 09:12 | MHC.OFFVIS ---
Intake Intake Visit Reasons: 2 week follow up right leg angiogram Intake Note: 2 week follow up Right LE w/ non-healing ulcer, woundcare states they can't do anything wound-rivera until blood flow is fixed. Dressing changes daily, wound is on the calf, caused by vein harvest for heart procedure. Pt has a great deal of pain. Accompanied by: Daughter Allergies amoxicillin Allergy (Mild, Verified 05/29/23 09:18) RASH morphine Adverse Reaction (Severe, Verified 05/29/23 09:18) Nightmare HPI 2 week follow up right leg angiogram HPI Details Very pleasant 78-year-old female presents for follow-up after diagnostic angiogram. She has a longstanding history of peripheral vascular disease. Last year she had undergone CABG as well as bioprosthetic aortic valve replacement. From the vein harvest site it remains to be nonhealing and had a wound VAC in place for a longest period of time. In addition she has toe ulcerations as well. She has had no other interval issues. She reports that the ulcer on her calf and toes have not changed. She now presents for routine follow-up [facility] Medical History Paroxysmal atrial fibrillation COVID-19 Abnormal myocardial perfusion study Smoking Other and unspecified hyperlipidemia Essential hypertension Type 2 diabetes mellitus with unspecified complications Atherosclerotic cardiovascular disease Wears partial dentures Arthritis Depression Expressive aphasia CVA (cerebral vascular accident) Lab test negative for COVID-19 virus Hx of cardiac murmur Hyperlipidemia Diabetes Hypertension Surgical History Hx of CABG Status post aortic valve replacement with bioprosthetic valve History of excision of pilonidal cyst Hx of dilation and curettage Family History Father Heart attack Mother Heart attack Social History Household Members: None Housing: House Are you a primary career services assistant to a significant other at home: Yes () Do you presently have visiting nurse or other home services: No Alcohol intake: never Patient Tobacco Use Status: Former Tobacco user Tobacco use type: Cigarette Cigarette Packs Per Day: 1 Years Smoked: 62 Second Hand Smoke Exposure: No Advance Directives Date on File: 03/13/20 service: No Current occupational status: employed and retired Review of Systems Const All systems reviewed & are unremarkable except as noted in HPI and below Reports no additional complaints ENT Reports Normal hearing present Card Denies chest pain, Denies chest pain at rest, Denies chest pain with activity and Denies pedal edema Resp Denies cough GI Denies abdominal pain Musc Denies abnormal gait, Denies muscle cramps and Denies radiating pain into limb Skin/Breast Denies skin ulcer and Denies wounds Neuro Reports Normal hearing present and Denies abnormal gait Psych Reports no additional complaints Physical Exam Const General: cooperative, healthy appearing and comfortable Orientation/consciousness: oriented to person, oriented to place and oriented to time HEENT Head: Yes normal to inspection Neck Neck: Yes normal visual inspection Carotids: no bruits Chest Chest palpation & inspection: normal inspection of the chest Resp Effort & Inspection: normal respiratory effort and able to speak in complete sentences Auscultation: clear to auscultation bilaterally, no crackles, no rales, no rhonchi and no wheezes Cardio Other: Bilateral DP monophasic signals Rate: regular rate Rhythm: regular rhythm Heart sounds: S1 normal heart sound present and S2 normal heart sound present Bruits: no carotid bruits Peripheral pulses: Peripheral pulses 2+ throughout GI Inspection: Yes normal to inspection Skin Wounds: no wounds Hair: normal Neuro General: oriented to person, oriented to place and oriented to time Cranial nerves: Yes CN's II-XII intact bilaterally and Yes Normal hearing present Cognition (Neuro): normal cognition Motor exam (neuro): 5/5 motor strength present throughout Extrem Other: venous exam: No significant superficial varicosities or spider telangiectasias, minimal edema General: No clubbing, No cyanosis and No edema Psych Appearance: grossly normal Mental Status: mental status grossly normal Speech and movement: Normal speech and movement present Results Reviewed Results Reviewed: Diagnostic angiogram had demonstrated left side high-grade stenosis at the common iliac right side had a patent common iliac but external iliac was totally occluded along with total occlusion of the common femoral profundus was fed via collaterals. SFA total occlusion and reconstitutes at Reed's canal and then occludes and reconstitutes at popliteal. Below-knee vessels were difficult to image. Assessment & Plan Assessment & Plan (1) Peripheral vascular disease: Comment: 05/15/2023 - diagnostic angiogram Code(s): I73.9 - Peripheral vascular disease, unspecified Plan: In short patient has multilevel disease. I did discuss this with her. I do believe with all that she has going on she will be better served at a tertiary care center. I did discuss these findings with her and she was in agreement. I will try to expedite getting her out to a tertiary care center as soon as possible. Thank you for allowing us to assist in her care. If there are any questions or concerns please do not hesitate to contact us. Coding Level of Care Code Est Pt Level 4 (11427) Diagnoses Peripheral vascular disease I73.9
== END 2023-05-29 09:53 | disposition home or self-care (01) ==
PROVIDERS: PCP Internal Medicine; Visit Provider Surgery Vascular Surgery
DX: I73.9 Peripheral vascular disease, unspecified (principal)
CPT/HCPCS: 99213

== ENCOUNTER → 2023-05-29 09:12 | Outpatient (BNVA) | payer MEDICARE, SELFPAY | PROVIDERS: PCP Internal Medicine; Visit Provider Surgery Vascular Surgery | DX: I73.9 Peripheral vascular disease, unspecified (principal) | CPT/HCPCS: 99212 ==

== ENCOUNTER 2023-06-14 11:10 | Outpatient (REF) | payer MEDICARE, SELFPAY ==
[2023-06-14 13:34] LABS: Estimated Glomerular Filt Rate 50
== END 2023-06-14 11:11 | disposition home or self-care (01) ==
LOC: HO.HMGCLDS 11:10
PROVIDERS: PCP Internal Medicine; Visit Provider Surgery Vascular Surgery
DX: L97.912 Non-pressure chronic ulcer of unspecified part of right lower leg with fat layer exposed (principal); I70.299 Other atherosclerosis of native arteries of extremities, unspecified extremity
CPT/HCPCS: 36415; 82565

== ENCOUNTER 2023-06-24 12:57 | Outpatient (AMB) | payer MEDICARE, SELFPAY ==
--- NOTE | 2023-06-24 12:59 | A.OFFVIS_ITS ---
Intake Vital Signs 06/24/23 13:01 Height 5 ft 5 in Weight 244 lb 11.41 oz BMI 40.7 BP 120/50 L Blood Pressure Location Lt brachial Position Sitting Pulse 76 Intake Visit Reasons: pre op clearance Intake Note: pre op Patient Liaison Required: No Accompanied by: Daughter Allergies amoxicillin Allergy (Mild, Verified 06/24/23 13:01) RASH morphine Adverse Reaction (Severe, Verified 06/24/23 13:01) Nightmare Medication List - Last Reconciled 06/24/23 by David Stone MD amlodipine 10 mg PO DAILY apixaban (Eliquis) 5 mg PO BID aspirin 81 mg PO DAILY atorvastatin 80 mg PO BEDTIME cholecalciferol (vitamin D3) 50 mcg PO DAILY gabapentin 300 mg PO BID metoprolol succinate ER 25 mg PO DAILY multivitamin with iron-mineral 1 tab PO DAILY oxycodone 5 mg PO BID PRN pyridoxine (vitamin B6) 100 mg PO DAILY 90 days sertraline 50 mg PO DAILY HPI HPI Comments History of Present Illness Details Dia returns for follow-up regarding coronary disease. She also needs preoperative evaluation for vascular surgery. To recall, last year, she underwent coronary artery bypass surgery as well as b ioprosthetic aortic valve replacement. Per documentation, she underwent surgery, but then had atrial fibrillation rapid rate that required cardioversion as it was unstable. 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 Also had congestive heart failure. LVEF in the 20s. Overall, had a long course and then had a wound VAC in place due to poor healing. Wound VAC is now removed. She is dealing with lower extremity vascular issues and has been sent to [facility]. Awaiting on surgery next week. From cardiac, she does not really have any symptoms like angina she states she is doing okay. Legs are still bothering her a lot. [facility] Medical History Paroxysmal atrial fibrillation COVID-19 Abnormal myocardial perfusion study Smoking Other and unspecified hyperlipidemia Essential hypertension Type 2 diabetes mellitus with unspecified complications Atherosclerotic cardiovascular disease Wears partial dentures Arthritis Depression Expressive aphasia CVA (cerebral vascular accident) Lab test negative for COVID-19 virus Hx of cardiac murmur Hyperlipidemia Diabetes Hypertension Surgical History Hx of CABG Status post aortic valve replacement with bioprosthetic valve History of excision of pilonidal cyst Hx of dilation and curettage Family History Father Heart attack Mother Heart attack Social History Household Members: None Housing: House Are you a primary insurance healthcare consultant to a significant other at home: Yes () Do you presently have visiting nurse or other home services: No Alcohol intake: never Patient Tobacco Use Status: Former Tobacco user Tobacco use type: Cigarette Cigarette Packs Per Day: 1 Years Smoked: 62 Second Hand Smoke Exposure: No Advance Directives Date on File: 03/13/20 service: No Current occupational status: employed and retired Review of Systems Const Denies weakness ENT Denies dizziness Card Denies chest pain, Denies chest pain with activity, Denies syncope, Denies rapid heart rate, Denies pedal edema, Denies edema, Denies leg edema, Denies lightheadedness, Denies palpitations, Denies dyspnea, Denies dyspnea on exertion and Denies orthopnea Resp Denies cough, Denies dyspnea and Denies dyspnea on exertion GI Denies hematochezia and Denies change in stool character Musc Denies abnormal gait, Denies muscle cramps, Denies muscle weakness, Denies numbness, Denies radiating pain into limb and Denies tingling Neuro Denies abnormal gait, Denies dizziness, Denies syncope, Denies numbness, Denies tingling and Denies weakness Endo Denies palpitations Physical Exam Vital Signs: Last Vital Signs Pulse 76 06/24/23 13:01 BP 120/50 L 06/24/23 13:01 BMI result Body Mass Index 40.7 Const General: comfortable and no acute distress Orientation/consciousness: patient oriented x3 HEENT Other: Unremarkable Head: Yes normal to inspection Neck Neck: Yes normal visual inspection Chest Chest palpation & inspection: normal inspection of the chest Resp Auscultation: clear to auscultation bilaterally Cardio Palpation: normal PMI Heart sounds: S1 normal heart sound present, S2 normal heart sound present, no gallops, no murmurs and no rubs GI Palpation (GI): Soft to palpation Back/Spine/Pelvis Other: unremarkable Skin General skin exam: no rashes or lesions noted Neuro General: patient oriented x3 Extrem General: Yes normal to inspection Psych Mental Status: mental status grossly normal Assessment & Plan Assessment & Plan (1) Atherosclerotic cardiovascular disease: Code(s): I25.10 - Atherosclerotic heart disease of [place] coronary artery without angina pectoris Plan: Status post coronary artery bypass surgery. Continue aspirin, high-dose statins. Lipids are well controlled. (2) Status post aortic valve replacement with bioprosthetic valve: Code(s): Z95.3 - Presence of xenogenic heart valve Plan: She also had bioprosthetic aortic valve replacement during the CABG -19mmHg Inspiris valve. Infective endocarditis prophylaxis per protocol. Recent echocardiogram shows normal prosthetic valve function. (3) Cardiomyopathy: Code(s): I42.9 - Cardiomyopathy, unspecified Qualifiers: Cardiomyopathy type: ischemic Qualified Code(s): I25.5 - Ischemic cardiomyopathy Plan: In [facility], LVEF 30-40%, but more recently it has improved to 68% on transthoracic echocardiogram. Wall motion abnormalities noted related to underlying coronary disease. (4) Paroxysmal atrial fibrillation: Code(s): I48.0 - Paroxysmal atrial fibrillation Plan: Status post cardioversion, after CABG. Continue Eliquis. (5) LBBB (left bundle branch block): Code(s): I44.7 - Left bundle-branch block, unspecified Plan: Can be followed periodically. 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 Being also concurrently followed up with vascular surgery. (7) Essential hypertension: Code(s): I10 - Essential (primary) hypertension Plan: Stable. No changes. (8) Smoking: Code(s): F17.200 - Nicotine dependence, unspecified, uncomplicated Plan: Unfortunately, still smoking. Again discussed with her how important it is to stop. Especially few days before surgery. (9) Preoperative cardiovascular examination: Code(s): Z01.810 - Encounter for preprocedural cardiovascular examination Plan: Many cardiac issues as listed above. However reasonably stable for the most part. May proceed with planned vascular surgery. High cardiac risk. Discussed specifically with patient as well as daughter. They are understanding this and willing to proceed. Advised to stop smoking before surgery. Plan Total time spent including review of data, counseling, documentation, coordination of care-46 minutes. Coding Level of Care Code Est Pt Level 5 (26881) Diagnoses Atherosclerotic cardiovascular disease I25.10 Status post aortic valve replacement with bioprosthetic valve Z95.3 Ischemic cardiomyopathy I25.5 Cardiomyopathy type: ischemic Paroxysmal atrial fibrillation I48.0 LBBB (left bundle branch block) I44.7 Stroke due to stenosis of left carotid artery I63.232 Essential hypertension I10 Smoking F17.200 Preoperative cardiovascular examination Z01.810
[2023-06-24 13:01] VITALS: BP 120/50; PULSE 76; BMI 40.7
== END 2023-06-24 13:21 | disposition home or self-care (01) ==
PROVIDERS: PCP Internal Medicine; Visit Provider Internal Medicine
DX: I25.810 Atherosclerosis of coronary artery bypass graft(s) without angina pectoris (principal); Z95.3 Presence of xenogenic heart valve; F17.200 Nicotine dependence, unspecified, uncomplicated; Z01.810 Encounter for preprocedural cardiovascular examination; I25.5 Ischemic cardiomyopathy; I48.0 Paroxysmal atrial fibrillation; I44.7 Left bundle-branch block, unspecified; I10 Essential (primary) hypertension; Z86.73 Personal history of transient ischemic attack (TIA), and cerebral infarction without residual deficits
CPT/HCPCS: 99215

== ENCOUNTER → 2023-06-24 12:57 | Outpatient (BNVA) | payer MEDICARE, SELFPAY | PROVIDERS: PCP Internal Medicine; Visit Provider Internal Medicine | DX: Z01.810 Encounter for preprocedural cardiovascular examination (principal); I11.0 Hypertensive heart disease with heart failure; I50.9 Heart failure, unspecified; I25.10 Atherosclerotic heart disease of native coronary artery without angina pectoris; I25.5 Ischemic cardiomyopathy; I48.0 Paroxysmal atrial fibrillation; I44.7 Left bundle-branch block, unspecified; F17.210 Nicotine dependence, cigarettes, uncomplicated; Z86.73 Personal history of transient ischemic attack (TIA), and cerebral infarction without residual deficits; Z95.3 Presence of xenogenic heart valve | CPT/HCPCS: 99212 ==

== ENCOUNTER 2023-07-27 14:11 | Emergency (ER) | payer MEDICARE, SELFPAY ==
--- NOTE | ~2023-07-27 | CT_ITS ---
EXAMINATION: CT FEMUR WITH CONTRAST, RIGHT CLINICAL INFORMATION: Reason femoral surgery. Fever. COMPARISON: None available. TECHNIQUE: CT of the right thigh is performed following intravenous administration of 85 mL Omnipaque [address] examination was performed using dose optimization techniques as appropriate, variously including the following: *Automated exposure control *Adjustment of mA and/or kV according to patient size (this includes techniques or standardized protocols for targeted exams where dose is matched to indication/reason for exam; i.e. extremities or head) *Use of iterative reconstruction technique DLP: 321 mGy-cm FINDINGS: There is an irregular fluid collection along the proximal aspect of the right femoral-popliteal bypass measuring approximately 3.3 x 4.2 cm in transverse dimensions, and a length of 10.8 cm. In addition, there is a loose collection along the distal aspect of the graft, between the vastus medialis and sartorius muscles measuring 2.7 x 2.1 x 6.0 cm. These likely represent postoperative seroma is without circumscribed, peripheral enhancement. However, the possibility of infection of these collections cannot entirely be excluded. There is diffuse subcutaneous edema. CT/CT femur RT w IV con IMPRESSION: There are fluid collections along the proximal and distal aspects of the right femoral-popliteal bypass graft which likely represent postoperative seromas. However, the possibility of infection cannot entirely be excluded.
--- NOTE | ~2023-07-27 | XR_ITS ---
EXAMINATION: 1. RADIOGRAPHS RIGHT TIBIA/FIBULAR 2. RADIOGRAPHS RIGHT FOOT CLINICAL INFORMATION: Right leg wound. Recent third toe amputation. Evaluate for osteomyelitis. COMPARISON: Right foot and right ankle x-rays April 22, 2023 TECHNIQUE: 2 views of the right tibia/fibula and 3 views of the right foot were obtained. FINDINGS: No fracture of the right tibia or fibula. Lucency along the medial aspect of the proximal right calf is most consistent with a wound. There is no underlying osseous abnormality. There are soft tissue surgical clips in this region. No gross fracture or dislocation of the right ankle. No gross ankle joint effusion. Posterior and plantar calcaneal enthesophytes noted. Bones of the midfoot are well aligned. No tarsal, metatarsal or phalangeal fracture. Patient is status post interval amputation of the third toe. Third metatarsal head is normal in appearance without evidence for osteomyelitis. There are mild degenerative changes of the distal foot diffusely. Mild soft tissue irregularity adjacent to the first and fifth toes may represent superficial wounds. XR/XR foot RT 2V IMPRESSION: 1. Lucency along the medial aspect of the proximal right calf is most consistent with a soft tissue wound. There is no underlying osseous abnormality. 2. No gross fracture or osteomyelitis of the right foot.
--- NOTE | ~2023-07-27 | XR_ITS ---
EXAMINATION: 1. RADIOGRAPHS RIGHT TIBIA/FIBULAR 2. RADIOGRAPHS RIGHT FOOT CLINICAL INFORMATION: Right leg wound. Recent third toe amputation. Evaluate for osteomyelitis. COMPARISON: Right foot and right ankle x-rays April 22, 2023 TECHNIQUE: 2 views of the right tibia/fibula and 3 views of the right foot were obtained. FINDINGS: No fracture of the right tibia or fibula. Lucency along the medial aspect of the proximal right calf is most consistent with a wound. There is no underlying osseous abnormality. There are soft tissue surgical clips in this region. No gross fracture or dislocation of the right ankle. No gross ankle joint effusion. Posterior and plantar calcaneal enthesophytes noted. Bones of the midfoot are well aligned. No tarsal, metatarsal or phalangeal fracture. Patient is status post interval amputation of the third toe. Third metatarsal head is normal in appearance without evidence for osteomyelitis. There are mild degenerative changes of the distal foot diffusely. Mild soft tissue irregularity adjacent to the first and fifth toes may represent superficial wounds. XR/XR tibia fibula RT 2V IMPRESSION: 1. Lucency along the medial aspect of the proximal right calf is most consistent with a soft tissue wound. There is no underlying osseous abnormality. 2. No gross fracture or osteomyelitis of the right foot.
--- NOTE | ~2023-07-27 | CT_ITS ---
EXAMINATION: CT CHEST, ABDOMEN AND PELVIS WITH CONTRAST CLINICAL INFORMATION: Recent right femur surgery, fever COMPARISON: CT abdomen pelvis 02/12/2021, CT chest 08/16/2022 TECHNIQUE: Multidetector volumetric imaging was performed of the chest, abdomen and pelvis following administration of 85 mL Omnipaque 350 intravenous contrast. Oral contrast was not administered. Sagittal and coronal reformatted images were obtained on the technologist's workstation. This CT examination was performed using dose optimization techniques as appropriate, variously including the following: *Automated exposure control *Adjustment of mA and/or kV according to patient size (this includes techniques or standardized protocols for targeted exams where dose is matched to indication/reason for exam; i.e. extremities or head) *Use of iterative reconstruction technique DLP: 683 mGy-cm FINDINGS: CHEST: PLEURA: There is no pleural effusion. LUNGS: Central airways patent. Mild diffuse bronchial wall thickening. Mild scattered mosaic attenuation. Mild medial right middle lobe, inferior lingular, and dependent right lower lobe atelectasis. Unchanged solid, irregular, 5 mm anterior right upper lobe pulmonary nodule (series 9, image 141). Scattered additional sub-3 mm pulmonary micronodules unchanged. No new, suspicious pulmonary nodules identified. Per Fleischner Society guidelines, no further follow-up imaging is required. MEDIASTINUM: The heart is normal in size. Moderate severe aortic arch calcific atherosclerosis with likely severe atherosclerotic narrowing at the origin of the left subclavian artery. No pericardial effusion. No mediastinal lymphadenopathy. No hilar lymphadenopathy. CORONARY ARTERY CALCIFICATION: Severe multivessel coronary artery calcifications present status post coronary artery bypass graft. CHEST WALL/AXILLA: Unremarkable. No lymphadenopathy. ABDOMEN AND PELVIS: LIVER AND BILIARY TREE: Unremarkable. GALLBLADDER: Unremarkable PANCREAS: Unremarkable. SPLEEN: Unremarkable. ADRENAL GLANDS: Unchanged round, homogeneous attenuation 2.3 cm left adrenal nodule previously characterized as a lipid rich adenoma (series 16, image 254). Right adrenal gland unremarkable. KIDNEYS AND URETERS: Redemonstrated numerous bilateral renal simple and hemorrhagic/proteinaceous cysts for which no follow-up imaging is recommended. No hydronephrosis. GASTROINTESTINAL TRACT: Mild scattered colonic diverticulosis without evidence of acute diverticulitis.. Normal appendix VASCULAR: Redemonstrated severe aortoiliac calcific atherosclerosis with chronic inferior abdominal aortic dissection. Interval postoperative appearance from proximal bilateral common iliac and right external iliac arterial vascular stents, grossly patent without along the intra-abdominal portion of the iliac vasculature. Postoperative appearance from bilateral femoral vascular grafts, with visualized portions patent. LYMPH NODES: No lymphadenopathy. PERITONEUM: No ascites. BLADDER: Unremarkable. PELVIC VISCERA: Unremarkable. ABDOMINAL AND PELVIC WALL: Mildly rim-enhancing. Vascular fluid collections about the bilateral femoral vascular graft, measuring up to 4.1 cm in right and 3.5 cm on the left (series 16, image 810), with a right greater than left component extending superiorly along the superficial aspect of the anterolateral pelvic wall musculature (series 16, image 723). Diffuse subcutaneous fat stranding tracking along the visualized right anterolateral thigh subcutaneous fat with overlying skin thickening (series 16, image 802). OSSEOUS STRUCTURES: Mild multilevel degenerative thoracolumbar spondylosis. Median sternotomy wires in place, apparently intact. CT/CT abdomen pelvis w IV con IMPRESSION: 1. Postoperative appearance from bilateral common iliac, right external iliac, and bilateral femoral arterial vascular stents/grafts, grossly patent. New mildly rim-enhancing perivascular fluid collections about the bilateral common femoral arterial grafts, extending superiorly along the superficial aspect of the anterolateral pelvic wall on the right, likely postoperative and may be sterile or infected. 2. Asymmetric anterolateral right thigh subcutaneous fat stranding with overlying skin thickening, nonspecific though may also represent skin/soft tissue infection. 3. No other acute abnormality of the chest, abdomen or pelvis.
--- NOTE | ~2023-07-27 | XR_ITS ---
EXAMINATION: XR CHEST CLINICAL INFORMATION: Fever. COMPARISON: CT chest dated 08/16/2022; chest radiographs dated 10/27/2007. TECHNIQUE: Frontal view of the chest was obtained. FINDINGS: The heart, great vessels, pulmonary vasculature and mediastinum are stable. There has been a prior CABG procedure. There is atherosclerotic calcification of the aortic knob. There is moderate elevation of the right hemidiaphragm. There is mild bibasilar atelectasis. This appears new on the right and chronic on the left. No pleural effusion or pneumothorax is seen. There is no acute osseous abnormality. XR/XR chest 1V IMPRESSION: 1. There is bibasilar atelectasis, newly seen on the right and chronic on the left. Recommend short-term follow-up chest radiographs to ensure clearance and exclude the possibility of underlying obstructive process. 2. There is moderate elevation of the right hemidiaphragm.
[2023-07-27 14:20] VITALS: BP 102/50; BP 146/70; PULSE 69; PULSE 70; RESP 16; TEMP 38.8; O2SAT 96; BMI 29.2
[2023-07-27] MEDS: 0.9 % Sodium Chloride 1,000 ML 999 ML IV ×2 (14:47→18:14)
[2023-07-27 14:49] LABS: Basophils Percent Auto 0.2 % (0-2); Eosinophils Percent Auto 0.1 % (0-4); Hematocrit 27.9 % (37.0-47.0); Hemoglobin 9.1 g/dl (12.0-16.0); Imm Gran Abs Auto 0.13 X10*3/uL (0.00-0.03); Imm Gran Pct Auto 0.7 % (0.0-0.4); Lymphocytes Absolute Auto 0.9 X10*3/uL (1.2-4.9); Lymphocytes Percent Auto 4.8 % (20-40); MANUAL DIFF FLAG SCAN; Mean Corpuscular HGB Conc 32.6 g/dl (31.0-35.0); Mean Corpuscular Hemoglobin 29.6 pg (27.0-33.0); Mean Corpuscular Volume 90.9 fL (80.0-98.0); Mean Platelet Volume 10.2 fL (9.4-12.3); Monocytes Absolute Auto 0.6 X10*3/uL (0.1-1.2); Monocytes Percent Auto 3.2 % (2-11); Neutrophils Absolute Auto 17.4 x10*3/uL (2.0-8.3); Platelet Count 239 X10*3/uL (160-400); Red Blood Count 3.07 X10*6/uL (4.20-5.50); Red Cell Distribution Width 16.6 % (11.0-16.0); SCAN SMEAR FLAG 1; White Blood Count 19.2 X10*3/uL (4.8-10.8)
--- NOTE | 2023-07-27 14:52 | ED_ITS ---
HPI - General Adult General Chief complaint: General Medical Stated complaint: FEVER 101,TYL @ 12:45,VEIN SURG 2 WKS AGO PER EMS Time Seen by Provider: 07/27/23 14:21 Source: patient and EMS Mode of arrival: EMS Limitations: no limitations History of Present Illness HPI narrative: This is a 78-year-old female with a history of hypertension, high cholesterol, COPD who recently had a vascular procedure at [facility] as well as a 3rd toe amputation presents to the ER with complaints of fever noted today. Per family patient was lethargic this morning and had a temp of 103.5 degrees. They gave her 3 tablets of Tylenol at 12:45 and called EMS for transfer. Patient has no complaints. Patient is currently on Plavix and Eliquis Related Data Home Medications ?Medication ?Instructions ?Recorded ?Confirmed apixaban 5 mg tablet (Eliquis) 5 mg PO BID 10/29/22 06/24/23 cholecalciferol (vitamin D3) 50 50 mcg PO DAILY 10/29/22 06/24/23 mcg (2,000 unit) capsule multivitamin with iron-mineral 1 tab PO DAILY 10/29/22 06/24/23 sertraline 50 mg tablet 50 mg PO DAILY 10/29/22 06/24/23 oxycodone 5 mg tablet 5 mg PO BID PRN 05/29/23 06/24/23 gabapentin 300 mg capsule 300 mg PO BID 06/24/23 06/24/23 Previous Rx's ?Medication ?Instructions ?Recorded aspirin 81 mg tablet,delayed 81 mg PO DAILY #30 tabs 03/02/20 release pyridoxine (vitamin B6) 100 mg 100 mg PO DAILY 90 days #90 tabs 03/01/21 tablet atorvastatin 80 mg tablet 80 mg PO BEDTIME #90 tabs 10/17/22 metoprolol succinate 25 mg 25 mg PO DAILY #90 tabs 10/29/22 tablet,extended release 24 hr amlodipine 10 mg tablet 10 mg PO DAILY #90 tabs 01/24/23 Allergies Allergy/AdvReac Type Severity Reaction Status Date / Time amoxicillin Allergy Mild RASH Verified 07/27/23 14:26 morphine AdvReac Severe Nightmare Verified 07/27/23 14:26 Review of Systems 2 Review of Systems: Yes all other systems are reviewed and are negative Constitutional: Constitutional: Reports no additional constitutional complaints, Denies body ache(s), Denies chills, Reports fever(s), Denies headache(s) and Denies weakness Eyes: Eyes: Reports no additional eye complaints and Denies change in vision ENT: Reports system reviewed and no additional complaints, except as documented, Denies dizziness, Denies headache(s), Denies nasal congestion, Denies nasal discharge and Denies neck pain Cardiovascular: Cardiovascular: Reports no additional cardiovascular complaints, Denies chest pain, Denies leg edema and Denies dyspnea Respiratory: Respiratory: Reports no additional respiratory complaints, Denies cough and Denies dyspnea Gastrointestinal: Gastrointestinal: Reports no additional gastrointestinal complaints, Denies abdominal pain, Denies diarrhea, Denies nausea and Denies vomiting Genitourinary: Genitourinary: Reports no additional female genitourinary complaints and Denies urinary incontinence Musculoskeletal: Musculoskeletal: Reports no additional musculoskeletal complaints, Denies back pain, Denies arthralgias, Denies joint swelling, Denies neck pain, Denies numbness and Denies tingling Integumentary/Breasts: Skin/Breast: Reports system reviewed and no additional complaints, except as docu and Denies rash Neurologic: Reports system reviewed and no additional complaints, except as documented, Denies Abnormal speech present, Denies dizziness, Denies headache(s), Denies numbness, Denies tingling and Denies weakness PMFSH Past Medical History Attestation statement: The following information was validated with the patient. Source: old records reviewed and nursing notes reviewed Medical History Paroxysmal atrial fibrillation COVID-19 Abnormal myocardial perfusion study Smoking Other and unspecified hyperlipidemia Essential hypertension Type 2 diabetes mellitus with unspecified complications Atherosclerotic cardiovascular disease Wears partial dentures Arthritis Depression Expressive aphasia CVA (cerebral vascular accident) Lab test negative for COVID-19 virus Hx of cardiac murmur Hyperlipidemia Diabetes Hypertension Surgical History Hx of CABG Status post aortic valve replacement with bioprosthetic valve History of excision of pilonidal cyst Hx of dilation and curettage Family History Family History Father Heart attack Mother Heart attack Social History Social History Household Members: None Housing: House Are you a primary administrator health care facility to a significant other at home: Yes () Do you presently have visiting nurse or other home services: No Alcohol intake: never Patient Tobacco Use Status: Former Tobacco user Tobacco use type: Cigarette Cigarette Packs Per Day: 1 Years Smoked: 62 Second Hand Smoke Exposure: No Advance Directives: Yes Advance Directives on File: Yes Advance Directives Date on File: 03/15/20 Do you have a plan to hurt others: No Plan service: No Current occupational status: employed and retired Physical Exam ED Vital Signs: Vital Signs - 24 hr 07/27/23 14:20 07/27/23 16:11 07/27/23 16:15 Temperature 102 F H 98.3 F Pulse Rate 69 61 63 Respiratory Rate 16 14 16 Blood Pressure 102/50 L 107/44 L 123/46 L Pulse Oximetry 96 98 98 Oxygen Delivery Method Nasal Cannula Nasal Cannula Room Air Oxygen Flow Rate 2 07/27/23 16:31 Temperature Pulse Rate Respiratory Rate Blood Pressure 129/95 H Pulse Oximetry Oxygen Delivery Method Oxygen Flow Rate BMI result Body Mass Index 29.2 Const General: cooperative, healthy appearing, comfortable and no acute distress Orientation/consciousness: patient oriented x3 Limitations: no limitations HENDC Head: Yes normal to inspection Ears: hearing grossly normal bilaterally and TM's normal bilaterally General nose exam: Normal external nose present Face and sinus: Yes normal facial exam Mouth: Normal oral and palatal mucosa present Throat: Yes posterior oropharynx normal, Yes tonsils normal and Yes uvula midline Eyes General: appearance normal, both eyes and all related structures Pupils: Equal, round and reactive pupils present Neck Neck: Yes normal visual inspection, Yes full ROM, Yes no lymphadenopathy and Yes no meningeal signs Chest Chest palpation & inspection: normal inspection of the chest Resp Effort & Inspection: normal respiratory effort Auscultation: clear to auscultation bilaterally Cardio Rate: regular rate Rhythm: regular rhythm Peripheral pulses: Peripheral pulses 2+ throughout GI Inspection: Yes normal to inspection Palpation (GI): Soft to palpation and nontender Auscultation: normal bowel sounds Back/Spine/Pelvis Thoracic/Lumbar Spine: thoracic and lumbar spine normal to inspection Skin Other: There is some mild erythema around the right groin incision with slough and the right thigh has slight swelling and erythema but the compartments are soft and compressible and the patient elicits no pain. No erythema extending to the perineum.? CMS intact distally.? There is an area of eschar over the right mid lindo, healing surgical incision to the base of the right 3rd toe. No calf/foot or ankle swelling, erythema noted on exam.? General skin exam: no rashes or lesions noted Neuro General: patient oriented x3, no meningeal signs, no focal motor deficits and normal sensation to monofilament Cranial nerves: Yes Equal, round and reactive pupils present Cognition (Neuro): normal cognition Speech: No Abnormal speech present Gait exam (Neuro): Normal gait present Motor exam (neuro): 5/5 motor strength present throughout Extrem General: Yes normal to inspection Course Reevaluation(s) Reevaluation #1: Patient's CT femur showed evidence of abscesses around the graft site. I called and spoke to [facility] who agreed to transfer. Dr. Strauss accepted. Time: 18:09 Medications Administered Generic Name Dose Route Start Last Admin Trade Name Freq PRN Reason Stop Dose Admin Vancomycin HCl 2,000 mg in 500 mls @ 250 mls/hr 07/27/23 16:43 07/27/23 17:15 Vancomycin/Ns IV 07/27/23 18:42 250 mls/hr ONCE ONE Administration Discontinued Medications Generic Name Dose Route Start Last Admin Trade Name Freq PRN Reason Stop Dose Admin Sodium Chloride 1,000 mls @ 999 mls/hr 07/27/23 15:00 07/27/23 15:48 Ns IV 07/27/23 16:00 Infused .Q1H1M ROBERT Infusion Cefepime HCl 2 gm/ Sodium 50 mls @ 100 mls/hr 07/27/23 14:49 07/27/23 15:27 Chloride IV 07/27/23 15:18 Infused ONCE ONE Infusion Iohexol 100 ml 07/27/23 16:27 07/27/23 16:27 Iohexol 350 Mg/Ml 100 Ml Infus..Btl IV 07/27/23 16:28 85 ml ONCE ONE Administration Medical Decision Making Medical Decision Making [facility] Narrative: 1449-This is a 78-year-old female with a history of hypertension, high cholesterol, COPD who recently had a vascular procedure at [facility] as well as a 3rd toe amputation presents to the ER with complaints of fever noted today.? Per family patient was lethargic this morning and had a temp of 103.5 degrees.? They gave her 3 tablets of Tylenol at 12:45 and called EMS for transfer.? Patient has no complaints.? On arrival patient is febrile. Her other vital signs are stable. She has no physical complaints. I did inspect her wound sites. There is some mild erythema around the right groin and the left thigh has slight swelling and erythema but the compartments are soft and compressible and the patient elicits no pain. No erythema extending to the perineum. CMS intact distally. There is an area of eschar over the right mid lindo, healing surgical incision to the base of the right 3rd toe. No calf/foot or ankle swelling, erythema noted on exam. 2+ DP/PT pulses. [facility] Will need labs, UA, EKG, CXR, CT imaging (thigh, abdomen/pelvis/chest), x-rays of RLE/foot, viral screen At this time infection is suspected. Antibiotics and IV fluids ordered. Differential Diagnosis Differential Diagnoses: The differential diagnosis associated with the presentation includes Wound infection, cellulitis, deeper space infection such as abscess, UTI, pneumonia Less likely meningitis, encephalitis Less likely necrotizing fasciitis, Hanh's gangrene, compartment syndrome Admission/Observation Consideration of admission/observation: Escalation of care including admission/observation considered Consult Healthcare Provider Management of the patient was discussed with: Hospitalist Lab Data [facility] Lab Attestation statement: I reviewed the patient's lab results. 07/27/23 14:38 07/27/23 14:37 Labs: Lab Results 07/27/23 07/27/23 07/27/23 Range/Units 14:37 14:38 14:40 WBC 19.2 H (4.8-10.8) X10*3/uL RBC 3.07 L (4.20-5.50) X10*6/uL Hgb 9.1 L (12.0-16.0) g/dl Hct 27.9 L D (37.0-47.0) % MCV 90.9 (80.0-98.0) fL MCH 29.6 (27.0-33.0) pg MCHC 32.6 (31.0-35.0) g/dl RDW 16.6 H (11.0-16.0) % Plt Count 239 (160-400) X10*3/uL MPV 10.2 (9.4-12.3) fL Immature Gran % (Auto) 0.7 H (0.0-0.4) % Neut % (Auto) 91.0 H (45-73) % Lymph % (Auto) 4.8 L (20-40) % [place] % (Auto) 3.2 (2-11) % Eos % (Auto) 0.1 (0-4) % Baso % (Auto) 0.2 (0-2) % Lymph # (Auto) 0.9 L (1.2-4.9) X10*3/uL [place] # (Auto) 0.6 (0.1-1.2) X10*3/uL Eos # (Auto) 0.0 (0.0-0.4) X10*3/uL Baso # (Auto) 0.0 (0.0-0.2) X10*3/uL Abs Immat Gran (auto) 0.13 H (0.00-0.03) X10*3/uL Absolute Neuts (auto) 17.4 H (2.0-8.3) x10*3/uL Absolute Nucleated RBC 0.000 (0.0-0.012) X10*3/uL Nucleated RBC % (auto) 0.0 (0.0-0.2) /100WBC Smear Tech's Comments VERIFIED PT 14.8 H (11.1-13.3) SEC INR 1.2 H (0.9-1.1) Whole Blood INR Cancelled Sodium 136 (135-145) mmol/L Potassium 4.0 (3.3-5.1) mmol/L Chloride 103 (96-108) mmol/L Carbon Dioxide 22 (22-29) mmol/L Anion Gap 15 (12-20) BUN 14 (9-16) mg/dL Creatinine 1.10 (0.5-1.4) mg/dL Estim Creat Clear Calc 45.3 Estimated GFR 48 Random Glucose 178 H (60-115) mg/dL Lactic Acid 1.7 (0.5-2.0) mmol/L Calcium 8.8 D (8.4-10.2) mg/dL Total Bilirubin 0.4 (0.0-1.0) mg/dL AST 19 (5-31) U/L ALT 10 (0-31) U/L Alkaline Phosphatase 67 (39-117) U/L Total Protein 6.2 L (6.5-8.0) g/dL Albumin 3.1 L (3.5-5.0) g/dL Urine Color Urine Appearance Urine pH (5.0-9.0) Ur Specific Lovely (1.005-1.025) Urine Protein (Neg-Trace) mg/dL Urine Glucose (UA) (Negative) mg/dL Urine Ketones (Negative) mg/dL Urine Blood (Negative) Urine Nitrite (Negative) Ur Leukocyte Esterase (Negative) Urine RBC (0-2) /HPF Urine WBC (0-5) /HPF Ur Squamous Epith Cells (0-2) /HPF Urine Bacteria (None Seen) Hyaline Casts (0-2) /LPF Influenza Type A (PCR) (Negative) Influenza Type B (PCR) (Negative) RSV RNA Qual (PCR) (Negative) SARS-CoV-2 RNA (RT-PCR) (Negative) 07/27/23 07/27/23 Range/Units 14:41 15:15 WBC (4.8-10.8) X10*3/uL RBC (4.20-5.50) X10*6/uL Hgb (12.0-16.0) g/dl Hct (37.0-47.0) % MCV (80.0-98.0) fL MCH (27.0-33.0) pg MCHC (31.0-35.0) g/dl RDW (11.0-16.0) % Plt Count (160-400) X10*3/uL MPV (9.4-12.3) fL Immature Gran % (Auto) (0.0-0.4) % Neut % (Auto) (45-73) % Lymph % (Auto) (20-40) % [place] % (Auto) (2-11) % Eos % (Auto) (0-4) % Baso % (Auto) (0-2) % Lymph # (Auto) (1.2-4.9) X10*3/uL [place] # (Auto) (0.1-1.2) X10*3/uL Eos # (Auto) (0.0-0.4) X10*3/uL Baso # (Auto) (0.0-0.2) X10*3/uL Abs Immat Gran (auto) (0.00-0.03) X10*3/uL Absolute Neuts (auto) (2.0-8.3) x10*3/uL Absolute Nucleated RBC (0.0-0.012) X10*3/uL Nucleated RBC % (auto) (0.0-0.2) /100WBC Smear Tech's Comments PT (11.1-13.3) SEC INR (0.9-1.1) Whole Blood INR Sodium (135-145) mmol/L Potassium (3.3-5.1) mmol/L Chloride (96-108) mmol/L Carbon Dioxide (22-29) mmol/L Anion Gap (12-20) BUN (9-16) mg/dL Creatinine (0.5-1.4) mg/dL Estim Creat Clear Calc Estimated GFR Random Glucose (60-115) mg/dL Lactic Acid (0.5-2.0) mmol/L Calcium (8.4-10.2) mg/dL Total Bilirubin (0.0-1.0) mg/dL AST (5-31) U/L ALT (0-31) U/L Alkaline Phosphatase (39-117) U/L Total Protein (6.5-8.0) g/dL Albumin (3.5-5.0) g/dL Urine Color Yellow Urine Appearance Clear Urine pH 6.5 (5.0-9.0) Ur Specific Lovely 1.015 (1.005-1.025) Urine Protein Negative (Neg-Trace) mg/dL Urine Glucose (UA) Negative (Negative) mg/dL Urine Ketones Negative (Negative) mg/dL Urine Blood Negative (Negative) Urine Nitrite Negative (Negative) Ur Leukocyte Esterase Negative (Negative) Urine RBC 0-2 (0-2) /HPF Urine WBC 0-5 (0-5) /HPF Ur Squamous Epith Cells 3-5 (0-2) /HPF Urine Bacteria None Seen (None Seen) Hyaline Casts 0-2 (0-2) /LPF Influenza Type A (PCR) NEGATIVE (Negative) Influenza Type B (PCR) NEGATIVE (Negative) RSV RNA Qual (PCR) NEGATIVE (Negative) SARS-CoV-2 RNA (RT-PCR) NEGATIVE (Negative) Independent Interpretation I performed an independent interpretation of an: EKG, Plain X-Ray and CT Scan Interpretation: I independently reviewed the x-ray and agree with the radiology report Radiology Impression Discussion of test interpretation with radiology: I have reviewed the radiologist's reading. Radiologist Impression: [address] [address] XRay Report Signed Patient: Dia Dong MR#: [id number] : 1945 Acct:[id number] Age/Sex: 78 / F ADM Date: 07/27/23 Loc: HO.ED Attending Dr: Ordering Physician: Marina Robb NP Date of Service: 07/27/23 Procedure(s): XR chest 1V Accession Number(s): [id number] cc: Prakash Graham MD; Marina Robb NP~ EXAMINATION: XR CHEST CLINICAL INFORMATION: Fever. COMPARISON: CT chest dated 08/16/2022; chest radiographs dated 10/27/2007. TECHNIQUE: Frontal view of the chest was obtained. FINDINGS: The heart, great vessels, pulmonary vasculature and mediastinum are stable. There has been a prior CABG procedure. There is atherosclerotic calcification of the aortic knob. There is moderate elevation of the right hemidiaphragm. There is mild bibasilar atelectasis. This appears new on the right and chronic on the left. No pleural effusion or pneumothorax is seen. There is no acute osseous abnormality. XR/XR chest 1V IMPRESSION: 1. There is bibasilar atelectasis, newly seen on the right and chronic on the left. Recommend short-term follow-up chest radiographs to ensure clearance and exclude the possibility of underlying obstructive process. 2. There is moderate elevation of the right hemidiaphragm. Independent Historian Clinical information obtained from an independent historian. History obtained from or confirmed by: EMS and Other (Son) Critical Care Time Critical Care Time Critical Care Time: Yes Total Critical Care Time: 90 Attestation: see course of care Discharge Plan Discharge Clinical Impression: Fever Patient Disposition: Still a Patient Prescriptions: No Action atorvastatin 80 mg tablet 80 mg PO BEDTIME Qty: 90 3RF aspirin 81 mg Tablet,Delayed Release (/Ben) 81 mg PO DAILY Qty: 30 0RF pyridoxine (vitamin B6) 100 mg tablet 100 mg PO DAILY 90 Days Qty: 90 1RF gabapentin 300 mg capsule 300 mg PO BID Eliquis 5 mg tablet 5 mg PO BID sertraline 50 mg tablet 50 mg PO DAILY multivitamin with iron-mineral Tablet 1 tab PO DAILY cholecalciferol (vitamin D3) 50 mcg (2,000 unit) capsule 50 mcg PO DAILY metoprolol succinate 25 mg tablet extended release 24 hr 25 mg PO DAILY Qty: 90 3RF amlodipine 10 mg tablet 10 mg PO DAILY Qty: 90 3RF oxycodone 5 mg tablet 5 mg PO BID PRN Print Language: Greenlandic
--- NOTE | 2023-07-27 14:54 | PC.NURSE ---
Pt coming from home, family felt she was altered and more lethargic today, 103 temp noted, 1500mg APAP ordered and given at 1245, 102 rectal at this point in rectal temp. IV placed by EMS, IV placed by staff, labs collected, sepsis protocol ordered at this time. Wound dressings removed, and provider noted wounds and locations, son at bedside to give staff more details.
[2023-07-27] MEDS: cefEPime HCl 2 GM in 0.9 % Sodium Chloride 50 ML IV (14:57)
[2023-07-27 14:59] LABS: Lactic Acid 1.7 mmol/L (0.5-2.0)
[2023-07-27 15:03] LABS: Alanine Aminotransferase 10 U/L (0-31); Albumin Level 3.1 g/dL (3.5-5.0); Alkaline Phosphatase 67 U/L (39-117); Anion Gap 15 (12-20); Aspartate Amino Transferase 19 U/L (5-31); Bilirubin Total 0.4 mg/dL (0.0-1.0); Blood Urea Nitrogen 14 mg/dL (9-16); Calcium 8.8 mg/dL (8.4-10.2); Carbon Dioxide 22 mmol/L (22-29); Chloride 103 mmol/L (96-108); Creatinine Clr Calc Pharmacy 45.3; Estimated Glomerular Filt Rate 48; Glucose Random 178 mg/dL (60-115); Sodium 136 mmol/L (135-145); Total Protein 6.2 g/dL (6.5-8.0)
[2023-07-27 15:05] LABS: INTERNATIONAL NORM RATIO 1.2 (0.9-1.1); Prothrombin Time 14.8 SEC (11.1-13.3)
[2023-07-27 15:18] LABS: SLIDE REVIEW VERIFIED
[2023-07-27 15:23] LABS: Appearance Urine Clear; Color Urine Yellow; Glucose Urine UA Negative (Negative); Leukocyte Esterase Urine Negative (Negative); Nitrite Urine Negative (Negative); PH 6.5 (5.0-9.0); Specific Gravity - Urine 1.015 (1.005-1.025); Urine Blood Negative (Negative); Urine Ketones Negative (Negative); Urine Protein Negative (Neg-Trace)
[2023-07-27 15:27] LABS: Influenza A PCR NEGATIVE (Negative); Influenza B PCR NEGATIVE (Negative); Resp Syncy Virus RNA Qual PCR NEGATIVE (Negative); SARS COV2 PCR INHOUSE NEGATIVE (Negative)
[2023-07-27 15:37] LABS: Bacteria Urine None Seen (None Seen); Hyaline Casts Urine 0-2 /LPF (0-2); RBC Urine 0-2 /HPF (0-2); WBC Urine 0-5 /HPF (0-5)
[2023-07-27 16:11] VITALS: BP 107/44; PULSE 61; RESP 14; O2SAT 98
[2023-07-27 16:15] VITALS: BP 123/46; PULSE 63; RESP 16; TEMP 36.8; O2SAT 98
--- NOTE | 2023-07-27 16:26 | ECG_ITS ---
Test Reason : FEVER Blood Pressure : / mmHG Vent. Rate : 079 BPM Atrial Rate : 079 BPM P-R Int : 202 ms QRS Dur : 136 ms QT Int : 420 ms P-R-T Axes : 071 -02 095 degrees QTc Int : 481 ms Sinus rhythm with occasional Premature ventricular complexes Left bundle branch block Abnormal ECG When compared with ECG of 15-MAY-2023 06:53, Premature ventricular complexes are now Present Referred By: Marina Estrada Electronically Signed By:SY PERERA
[2023-07-27] MEDS: iohexoL 350 MG/ML 100 ML INFUS..BTL IV (16:27)
[2023-07-27 16:31] VITALS: BP 129/95
[2023-07-27] MEDS: vancomycin/NS 2,000 MG/500 ML PLAST..BAG 250 MG IV (17:15)
[2023-07-27 18:27] LABS: Lipase 24 U/L (8-78); Magnesium 1.5 mg/dL (1.6-2.6)
[2023-07-27 18:35] LABS: Troponin-I High Sensitivity 26.3 ng/L (<3.5-17.0)
--- NOTE | 2023-07-27 19:26 | PC.NURSE ---
Report to Lina at [facility] Transfer line.
[2023-07-27 19:27] VITALS: BP 107/41; PULSE 60; RESP 18; TEMP 36.8; O2SAT 97
[2023-07-27 20:00] VITALS: BP 107/41; PULSE 60; RESP 18; TEMP 36.8; O2SAT 97
== END 2023-07-27 20:02 | disposition short-term general hospital (02) ==
PROVIDERS: Nurse Practitioner Family; Emergency Provider Emergency Medicine; PCP Internal Medicine
DX: R50.9 Fever, unspecified (principal); R53.83 Other fatigue; I73.9 Peripheral vascular disease, unspecified; Z89.429 Acquired absence of other toe(s), unspecified side; E11.9 Type 2 diabetes mellitus without complications; I10 Essential (primary) hypertension; E78.00 Pure hypercholesterolemia, unspecified; I48.0 Paroxysmal atrial fibrillation; J44.9 Chronic obstructive pulmonary disease, unspecified; D64.9 Anemia, unspecified; I42.9 Cardiomyopathy, unspecified; I44.7 Left bundle-branch block, unspecified; Z95.3 Presence of xenogenic heart valve; Z95.1 Presence of aortocoronary bypass graft; Z86.73 Personal history of transient ischemic attack (TIA), and cerebral infarction without residual deficits; Z87.891 Personal history of nicotine dependence; Z79.02 Long term (current) use of antithrombotics/antiplatelets; Z79.01 Long term (current) use of anticoagulants; Z79.82 Long term (current) use of aspirin; Z03.818 Encounter for observation for suspected exposure to other biological agents ruled out
CPT/HCPCS: 0241U; 36415; 71045; 71260; 73590; 73620; 73701; 74177; 80053; 81001; 83605; 83690; 83735; 84484; 85025; 85610; 87040; 93005; 96365; 96375; 99285; J0692; J3370; Q9967

== ENCOUNTER → 2023-07-27 16:26 | Outpatient (BNV) | payer MEDICARE, SELFPAY | PROVIDERS: Emergency Provider Emergency Medicine; PCP Internal Medicine; Visit Provider Internal Medicine | DX: R94.31 Abnormal electrocardiogram [ECG] [EKG] (principal) | CPT/HCPCS: 93010 ==

== ENCOUNTER 2023-10-24 09:05 | Outpatient (AMB) | payer MEDICARE, MEDICAID, SELFPAY ==
--- NOTE | 2023-10-24 09:09 | A.OFFVIS_ITS ---
Vital Signs 10/24/23 09:10 Height 5 ft 3 in Weight 171 lb 8.314 oz BMI 30.4 BP 140/78 H Blood Pressure Location Lt brachial Position Sitting Pulse 61 Pulse Source Pulse Oximeter Intake Visit Reasons: 3 mth f/up Tripe Finisher Required: No Accompanied by: Self / Same As Patient Allergies amoxicillin Allergy (Mild, Verified 07/27/23 14:26) RASH morphine Adverse Reaction (Severe, Verified 07/27/23 14:26) Nightmare Medication List - Last Reconciled 10/24/23 by David Stone MD amlodipine 10 mg PO DAILY apixaban (Eliquis) 5 mg PO BID atorvastatin 80 mg PO BEDTIME cholecalciferol (vitamin D3) 50 mcg PO DAILY clopidogrel (Plavix) 75 mg PO DAILY famotidine unsure of dose orally daily; gabapentin 300 mg PO ONCE metoprolol succinate ER 25 mg PO DAILY multivitamin with iron-mineral 1 tab PO DAILY pyridoxine (vitamin B6) 100 mg PO DAILY 90 days sertraline 50 mg PO DAILY HPI Comments Details: Dia returns for follow-up regarding coronary disease. To recall, in 2022, she underwent coronary artery bypass surgery as well as bioprosthetic aortic valve replacement. Per documentation, she underwent surgery, but then had atrial fibrillation rapid rate that required cardioversion as it was unstable. Then echocardiogram had shown anteroseptal, inferoseptal, apical akinesis, and she was taken to the label press operator but grafts were patent. Also had congestive heart failure. LVEF in the 20s. Overall, had a long course and then had a wound VAC in place due to poor healing. Wound VAC is now removed. Then had some vascular surgery work done at [facility]. That went well according to her. Otherwise, feeling good. No specific cardiac concerns at this time. [facility] Medical History Paroxysmal atrial fibrillation COVID-19 Abnormal myocardial perfusion study Smoking Other and unspecified hyperlipidemia Essential hypertension Type 2 diabetes mellitus with unspecified complications Atherosclerotic cardiovascular disease Wears partial dentures Arthritis Depression Expressive aphasia CVA (cerebral vascular accident) Lab test negative for COVID-19 virus Hx of cardiac murmur Hyperlipidemia Diabetes Hypertension Surgical History Hx of CABG Status post aortic valve replacement with bioprosthetic valve History of excision of pilonidal cyst Hx of dilation and curettage Family History Father Heart attack Mother Heart attack Social History Household Members: None Housing: House Are you a primary residential child care counselor to a significant other at home: Yes () Do you presently have visiting nurse or other home services: No Alcohol intake: never Patient Tobacco Use Status: Former Tobacco user Tobacco use type: Cigarette Cigarette Packs Per Day: 1 Years Smoked: 62 Second Hand Smoke Exposure: No Advance Directives Date on File: 03/15/20 service: No Current occupational status: employed and retired Review of Systems Const Denies chills, Denies fatigue, Denies fever(s), Denies weight gain and Denies weight loss ENT Denies dizziness Card Denies chest pain, Denies leg edema, Denies lightheadedness, Denies palpitations, Denies dyspnea on exertion, Denies orthopnea and Denies other Resp Denies cough and Denies dyspnea on exertion GI Denies hematochezia and Denies change in stool character Musc Denies abnormal gait, Denies muscle weakness, Denies numbness, Denies radiating pain into limb and Denies tingling Neuro Denies abnormal gait, Denies dizziness, Denies numbness and Denies tingling Endo Denies fatigue and Denies palpitations Physical Exam Vital Signs: Last Vital Signs Pulse 61 10/24/23 09:10 BP 140/78 H 10/24/23 09:10 BMI result Body Mass Index 30.4 Const General: comfortable and no acute distress Orientation/consciousness: patient oriented x3 HEENT Other: Unremarkable Head: Yes normal to inspection Neck Neck: Yes normal visual inspection Chest Chest palpation & inspection: normal inspection of the chest Resp Auscultation: clear to auscultation bilaterally Cardio Palpation: normal PMI Heart sounds: S1 normal heart sound present, S2 normal heart sound present, no gallops, Murmur heart sound present systolic II/ and at the right sternal border and no rubs GI Palpation (GI): Soft to palpation Back/Spine/Pelvis Other: unremarkable Skin General skin exam: no rashes or lesions noted Neuro General: patient oriented x3 Extrem General: Yes normal to inspection Psych Mental Status: mental status grossly normal Assessment & Plan Assessment & Plan (1) Atherosclerotic cardiovascular disease: Code(s): I25.10 - Atherosclerotic heart disease of [place] coronary artery without angina pectoris Category: Medical Plan: Status post coronary artery bypass surgery. Continue aspirin, high-dose statins. Lipids are well controlled. (2) Status post aortic valve replacement with bioprosthetic valve: Code(s): Z95.3 - Presence of xenogenic heart valve Category: Surgical Plan: She also had bioprosthetic aortic valve replacement during the CABG -19mmHg Inspiris valve. Infective endocarditis prophylaxis per protocol. Recent echocardiogram shows normal prosthetic valve function. (3) Cardiomyopathy: Code(s): I42.9 - Cardiomyopathy, unspecified Category: Medical Qualifiers: Cardiomyopathy type: ischemic Qualified Code(s): I25.5 - Ischemic cardiomyopathy Plan: In [facility], LVEF 30-40%, but more recently it has improved to 68% on transthoracic echocardiogram. Wall motion abnormalities noted related to underlying coronary disease. (4) Paroxysmal atrial fibrillation: Code(s): I48.0 - Paroxysmal atrial fibrillation Category: Medical Plan: Status post cardioversion, after CABG. Continue Eliquis. (5) LBBB (left bundle branch block): Code(s): I44.7 - Left bundle-branch block, unspecified Category: Medical Plan: Can be followed periodically. (6) Stroke due to stenosis of left carotid artery: Comment: 03/14/2020 - left carotid endarterectomy Code(s): I63.232 - Cerebral infarction due to unspecified occlusion or stenosis of left carotid arteries Category: Medical Plan: No residual deficits. Being also concurrently followed up with vascular surgery. (7) Essential hypertension: Code(s): I10 - Essential (primary) hypertension Category: Medical Plan: Today's blood pressure is slightly high but she states home blood pressures are much lower. (8) Smoking: Code(s): F17.200 - Nicotine dependence, unspecified, uncomplicated Category: Social Hx Plan: Per patient, she has cut back a lot. Plan Follow-up in 6 months. In the interim, she will call us as necessary. Coding Level of Care Code Est Pt Level 4 (42841) Diagnoses Atherosclerotic cardiovascular disease I25.10 Status post aortic valve replacement with bioprosthetic valve Z95.3 Ischemic cardiomyopathy I25.5 Cardiomyopathy type: ischemic Paroxysmal atrial fibrillation I48.0 LBBB (left bundle branch block) I44.7 Stroke due to stenosis of left carotid artery I63.232 Essential hypertension I10 Smoking F17.200
[2023-10-24 09:10] VITALS: BP 140/78; PULSE 61; BMI 30.4
== END 2023-10-24 09:36 | disposition home or self-care (01) ==
PROVIDERS: PCP Internal Medicine; Visit Provider Internal Medicine
DX: I25.10 Atherosclerotic heart disease of native coronary artery without angina pectoris (principal); Z95.3 Presence of xenogenic heart valve; I25.5 Ischemic cardiomyopathy; I48.0 Paroxysmal atrial fibrillation; I44.7 Left bundle-branch block, unspecified; I63.232 Cerebral infarction due to unspecified occlusion or stenosis of left carotid arteries; I10 Essential (primary) hypertension; F17.200 Nicotine dependence, unspecified, uncomplicated
CPT/HCPCS: 99214

== ENCOUNTER → 2023-10-24 09:05 | Outpatient (BNVA) | payer MEDICARE, SELFPAY | PROVIDERS: PCP Internal Medicine; Visit Provider Internal Medicine | DX: I25.10 Atherosclerotic heart disease of native coronary artery without angina pectoris (principal); I11.0 Hypertensive heart disease with heart failure; I50.9 Heart failure, unspecified; I25.5 Ischemic cardiomyopathy; I48.0 Paroxysmal atrial fibrillation; I44.7 Left bundle-branch block, unspecified; F17.210 Nicotine dependence, cigarettes, uncomplicated; Z95.3 Presence of xenogenic heart valve; Z86.73 Personal history of transient ischemic attack (TIA), and cerebral infarction without residual deficits | CPT/HCPCS: 99212 ==

== ENCOUNTER 2024-07-21 12:17 | Outpatient (AMB) | payer MEDICARE, MEDICAID, SELFPAY ==
--- NOTE | 2024-07-21 12:30 | A.OFFVIS_ITS ---
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 Required: No Accompanied by: Self / Same As Patient Allergies amoxicillin Allergy (Mild, Verified 07/27/23 14:26) RASH morphine Adverse Reaction (Severe, Verified 07/27/23 14:26) Nightmare Medication List - Last Reconciled 07/21/24 by David Stone MD amlodipine 10 mg PO DAILY apixaban (Eliquis) 5 mg PO BID atorvastatin 80 mg PO BEDTIME cholecalciferol (vitamin D3) 50 mcg PO DAILY clopidogrel (Plavix) 75 mg PO DAILY empagliflozin (Jardiance) mg PO DAILY famotidine unsure of dose orally daily; gabapentin 300 mg PO ONCE metoprolol succinate ER 25 mg PO DAILY multivitamin with iron-mineral 1 tab PO DAILY pyridoxine (vitamin B6) 100 mg PO DAILY 90 days sertraline 50 mg PO DAILY HPI Comments Details: Dia returns for follow-up regarding coronary disease. To recall, in 2022, she underwent coronary artery bypass surgery as well as bioprosthetic aortic valve replacement. Per documentation, she underwent surgery, but then had atrial fibrillation rapid rate that required cardioversion as it was unstable. Then echocardiogram had shown anteroseptal, inferoseptal, apical akinesis, and she was taken to the laboratory machinist but grafts were patent. Also had congestive heart failure. LVEF in the 20s. Overall, had a long course and then had a wound VAC in place due to poor healing. Wound VAC is now removed. Then had some vascular surgery work done at [facility]. That went well according to her. Since last seen, she states she is doing pretty good. No concerning symptoms whatsoever. [facility] Medical History Paroxysmal atrial fibrillation COVID-19 Abnormal myocardial perfusion study Smoking Other and unspecified hyperlipidemia Essential hypertension Type 2 diabetes mellitus with unspecified complications Atherosclerotic cardiovascular disease Wears partial dentures Arthritis Depression Expressive aphasia CVA (cerebral vascular accident) Lab test negative for COVID-19 virus Hx of cardiac murmur Hyperlipidemia Diabetes Hypertension Surgical History Hx of CABG Status post aortic valve replacement with bioprosthetic valve History of excision of pilonidal cyst Hx of dilation and curettage Family History Father Heart attack Mother Heart attack Social History Household Members: None Housing: House Are you a primary primary care nurse practitioner to a significant other at home: Yes () Do you presently have visiting nurse or other home services: No Alcohol intake: never Patient Tobacco Use Status: Former Tobacco user Tobacco use type: Cigarette Cigarette Packs Per Day: 1 Years Smoked: 62 Second Hand Smoke Exposure: No Advance Directives Date on File: 03/15/20 service: No Current occupational status: employed and retired Review of Systems Const Denies chills, Denies fatigue, Denies fever(s), Denies frequent falls, Denies weakness, Denies weight gain and Denies weight loss ENT Denies dizziness Card Denies chest pain, Denies leg edema, Denies lightheadedness, Denies palpitations, Denies dyspnea and Denies dyspnea on exertion Resp Denies cough, Denies dyspnea and Denies dyspnea on exertion GI Denies hematochezia Musc Denies abnormal gait, Denies muscle weakness, Denies numbness, Denies radiating pain into limb and Denies tingling Neuro Denies abnormal gait, Denies dizziness, Denies frequent falls, Denies numbness, Denies tingling and Denies weakness Endo Denies fatigue and Denies palpitations Physical Exam Vital Signs: Last Vital Signs Pulse 64 07/21/24 12:33 BP 130/64 07/21/24 12:33 BMI result Body Mass Index 30.8 Const General: comfortable and no acute distress Orientation/consciousness: patient oriented x3 HEENT Other: Unremarkable Head: Yes normal to inspection Neck Neck: Yes normal visual inspection Chest Chest palpation & inspection: normal inspection of the chest Resp Auscultation: clear to auscultation bilaterally Cardio Palpation: normal PMI Heart sounds: S1 normal heart sound present, S2 normal heart sound present, no gallops, Murmur heart sound present systolic II/ and at the right sternal border and no rubs GI Palpation (GI): Soft to palpation Back/Spine/Pelvis Other: unremarkable Skin General skin exam: no rashes or lesions noted Neuro General: patient oriented x3 Extrem General: Yes normal to inspection Psych Mental Status: mental status grossly normal Office Procedures EKG Details: EKG with underlying sinus rhythm at 64/Min; sinus arrhythmias; left bundle- branch block pattern; PV[place] [id number], Complete Assessment & Plan Assessment & Plan (1) Atherosclerotic cardiovascular disease: Code(s): I25.10 - Atherosclerotic heart disease of [place] coronary artery without angina pectoris Category: Medical Plan: Status post coronary artery bypass surgery. Continue aspirin, high-dose statins. Lipids are well controlled. (2) Status post aortic valve replacement with bioprosthetic valve: Code(s): Z95.3 - Presence of xenogenic heart valve Category: Surgical Plan: She also had bioprosthetic aortic valve replacement during the CABG -19mmHg Inspiris valve. Infective endocarditis prophylaxis per protocol. Last echocardiogram shows normal prosthetic valve function. (3) Cardiomyopathy: Code(s): I42.9 - Cardiomyopathy, unspecified Category: Medical Qualifiers: Cardiomyopathy type: ischemic Qualified Code(s): I25.5 - Ischemic cardiomyopathy Plan: In [facility], LVEF 30-40%, but more recently it has improved to 68% on transthoracic echocardiogram. Wall motion abnormalities noted related to underlying coronary disease. (4) Paroxysmal atrial fibrillation: Code(s): I48.0 - Paroxysmal atrial fibrillation Category: Medical Plan: Status post cardioversion, after CABG. Continue Eliquis. (5) LBBB (left bundle branch block): Code(s): I44.7 - Left bundle-branch block, unspecified Category: Medical Plan: Can be followed periodically. (6) Stroke due to stenosis of left carotid artery: Comment: 03/14/2020 - left carotid endarterectomy Code(s): I63.232 - Cerebral infarction due to unspecified occlusion or stenosis of left carotid arteries Category: Medical Plan: No residual deficits. Being also concurrently followed up with vascular surgery. (7) Essential hypertension: Code(s): I10 - Essential (primary) hypertension Category: Medical Plan: Stable. (8) Smoking: Code(s): F17.200 - Nicotine dependence, unspecified, uncomplicated Category: Social Hx Plan: Per patient, she has cut back a lot. Ideally she should stop, but more likely will not. Plan Discussion Notes During the consultation, I reviewed the patient's case, particularly focusing on her previous atrial fibrillation post-surgery and current use of Eliquis. We discussed the importance of continuing Eliquis to mitigate the risk of stroke and other thromboembolic events. The discussion around her ongoing smoking highlighted its cardiovascular risks, though no immediate cessation intervention was pursued in this visit. I emphasized the importance of monitoring her health and encouraged her to return for evaluation sooner if any symptoms arise. Patient was informed and verbally consented to the use of an ambient scribe for clinic note documentation during this visit. Patient Instructions: - Continue taking Eliquis as prescribed. - Monitor for any new or worsening symptoms and report them promptly. - Be mindful of the health impacts of smoking and consider reducing frequency. - Schedule follow-up in one year or sooner if needed. Coding Level of Care Code Est Pt Level 4 (48924) Complex EM visit Add On G2211 Diagnoses Atherosclerotic cardiovascular disease I25.10 Status post aortic valve replacement with bioprosthetic valve Z95.3 Ischemic cardiomyopathy I25.5 Cardiomyopathy type: ischemic Paroxysmal atrial fibrillation I48.0 LBBB (left bundle branch block) I44.7 Stroke due to stenosis of left carotid artery I63.232 Essential hypertension I10 Smoking F17.200 CPT Codes EKG - CPT: 88248-[id number], Complete ([id number])
[2024-07-21 12:33] VITALS: BP 130/64; PULSE 64; BMI 30.8
--- OUTSIDE RECORDS SUMMARY | 2024-07-21 14:16 | XMS_ITS ---
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 Name Role Phone Prakash Graham MD Primary Care Provider Radha Broderick Unavailable [phone] Allergies Allergen (clinical drug ingredient) Drug/Non Drug Allergy documented on EMR Reaction Allergy Type Onset Date Status amoxicillin Amoxicillin hives Drug Allergy Act nanci metformin metFORMIN HCl nausea Drug Allergy Act nanci codeine Codeine Unknown Drug Allergy Active REASON FOR VISIT At Risk Footcare, Skin problem(s) Medications Medication SIG (Take, Route, Frequency, Duration) Notes Start Date End Date Status Aspirin 81 MG 1 tablet Orally Once a day Not-Taking Doxycycline Monohydrate 100 MG 1 capsule Orally Twice a day for 10 days 04/22/2023 Not-Taking Gabapentin 300 MG Oral for 30 Days Not-Taking oxyCODONE HCl 5 MG Oral for 14 Days Not-Taking Santyl 250 UNIT/GM External for 30 Days Not-Taking metFORMIN HCl 500 MG TAKE 1 TABLET BY [facility] TWO TIMES A DAY Oral for 7 Days Not-Taking Clopidogrel Bisulfate 75 MG Oral for 90 Days Active Extra Depth Orthopedic Shoes, (1) Pair With (3) Pair Custom Heat Molded Multidensity Innersoles dx: niddm/pvd(e11.51), hammertoe foot deformity(m20.41,m20.42) , preulcerative skin lesion(s)(l85.1) Wear Daily; amputation right 3rd toe for 365 days 11/05/2023 Active Ammonium Lactate 12 % 1 application Exte rnally Twice a day for 30 days Active Furosemide 40 MG Oral for 30 Days Active eliquis 5 mg Active Atorvastatin Calcium 80 MG 1 tablet Orally Once a day Active Metoprolol Succinate 25 MG 1 capsule Orally Once a day Active Sertraline HCl 50 MG 1 tablet Orally Onc e a day Active amLODIPine Besylate 10 MG 1 tablet Orally Once a day Active Plavix Active Multivitamin Active Folic Acid Active Vitamin C Active Vitamin B Complex Ac tive Ammonium Lactate 12 % 1 application Exte rnally to affected areas of dry skin to feet except for between the toes Twice a day for 30 days Active Jardiance Active Vitamin D3 Active Social History Tobacco Use: Social History Observation Description Date Details (start date - stop date) Current Smoker NA - NA Tobacco Use/Smoking Question Answer Notes Are you a: current smoker How often do you smoke cigarettes? every day How many cigarettes a day do you smoke? 5 or les s How soon after you wake up d o you smoke your first cigarette? 6-30 minutes Additional Findings: Tobacco Non-User Current no n-smoker Tobacco use other than smoking: Question Answer Notes Are you an other tobacco user? No Vital Signs Height 5ft 3in in 07/08/2024 Weight 172 lbs 07/08/2024 BMI 30.47 kg/m2 07/08/2024 Blood pressure systolic 122 mm Hg 07/09/19 25 Blood pressure diastolic 80 mm Hg 025 Encounters Encounter Location Date Provider Diagnosis [facility] [address] 07/08/2024 Radha Dover Xerosis of skin L85. 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 and Tinea unguium B35.1 Assessments Encounter Date Diagnosis (ICD Code) Assessment Notes Treatment Notes Treatment Clinical Notes Section Notes 07/08/2024 Xerosis of skin (ICD-10 - L85.3) 07/08/2024 Type 2 diabetes mellitus with polyneuropathy (ICD-10 - E11.42) 07/08/2024 Type 2 diabetes mellitus with diabetic peripheral angiopathy without gangrene (ICD-10 - E11.51) 07/08/2024 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 (ICD-10 - I70.263) 07/08/2024 Tinea unguium (ICD-10 - B35.1) Plan Of Treatment Medication Medication Name Sig Start Date Stop Date Notes Ammonium Lactate 12 % 1 application Exte rnally to affected areas of dry skin to feet except for between the toes Twice a day for 30 days Next Appt Details Follow Up: 4 Months, Reason: Provider Name:Radha Toñito fairbanks, 11/10/2024 09:00:00 AM, [address] [place] [address], [id number], Procedure Notes * Category Sub-Category Detail Notes Debride Nail 6-10 Nail debridement Due to the cl inical pathology outlined in the exam findings, performance of this nail treatment is medically necessary as its management by an unskilled/untrained nonprofessional would put this patients foot and overall health at risk. Therefore, debridement to affected nail(s), as described in exam ( TA, T1, T2, T3, T4, T5, T6,T8, T9, ), was performed exclusively by the physician of record to reduce/remove overall nail length, girth, thickness, subungual debris, and necrotic tissue, by manual and/or electrical means through the use of a nail nipper and/or dremel-type cutter grinder, to a more viable healthy nail plate or bed tissue 6-10 nails in total. Silver nitrate was used for any petechial bleeding as necessary. Definitive antifungal treatment options, both pharmaceutical and surgical, have been reviewed and discussed with the patient. The patient solely prefers the use of intermittent/as needed professional debridement services for their nail condition and understands the need for additional periodic treatments to maintain effectiveness in symptomatic relief - 70565 Keratoma Treatment Parring or Cutting o f Benign Hyperkeratotic Lesion(s) (-57) More than 4 Lesions - Due to the at risk nature of the patients medical condition as documented in the exam findings, performance of this keratoderma treatment is medically necessary as its management by an unskilled/untrained nonprofessional would put this patients foot and overall health at risk. Therefore, the benign hyperkeratotic lesions, ( 7) in total, locations as stated and described in the exam ( Medial plantar, TA, T5, Plantar, T6, sub met head 1, 5 right, heels B/L;), were pared, and/or cut utilizing a sterile 15 blade, tissue nippers, and/or power dremel instrumentation by the physician of record - 13955 Progress Notes * Dia BERNARD EDOB:1945 (79 yo F)Acc No.[id number]:07/08/2024 Progress Note Patient:?Dia BERNARD Provider:?Radha Dover DPM :1945???Age:79 Y???Sex:Female D ate:07/08/2024 Address:[address] [place], [place] [id number] Pcp:Prakash Graham MD Subjective: * Chief Complaints: * ???At Risk FootcareSkin prob richard(s) * HPI: ???At Risk footcare:?Pt States Last PCP Visit:?Date?01/22/2024 ???Skin problems:?Nature:?dryness , scaling.?Location:?B/L .?Duration:?a few months.?Course:?improved.?Treatments:?medication ( AM Lactin ).? * ROS:?General/Constitutional:?Nausea?denies.?Vomiting?denies.?Hunger Thirst?denies.?Loss appetite?denies.?Chills?denies.?Fatigue?denies.?Fever?denies.?Night Sweats?denies.?Unexplained weight loss?denies.?Unexplained weight gain?denies.?HEENTM:?Dentures?denies.?Dizziness?denies.?Glasses/contacts?admits.?Retinopathy?den ies.?Blurred/double vision?denies.?TMJ?denies.?Discharge/drainage?denies.?Implants?denies.?Sore throat?denies.?Dental implants?denies.?Hard of hearing ?denies.?Difficulty chewing/swallowing/speaking?denies.?Nose bleeds?denies.?Sore mouth?denies.?Respiratory:?On O xygen?denies.?Pneumonia/pleurisy?denies.?Bronchitis?denies.?Emphysema?denies.?Co ughing?denies.?Cough blood?denies.?Shortness of breath?denies.?Wheezing?denies.?Cardiovascular:?Pacemaker?denies.?MVP?denies.?WPW?denies.?CHF?denies.?Heart attack?denies.?Septal defect?denies.?Rapid beat?denies.?Chest pain ?denies.?Atrial Fib.?admits.?Murmur/Palpitations?denies.?Gastrointestinal:?Hemorrhoids?denies.?Stomach/Abdominal pain?denies.?Dark blood stool?denies.?Irritable bowel ?denies.?Constipation?denies.?Diarrhea?denies.?Hematology:?Swelling?denies.?Clots?denies.?Varicose Veins?denies.?Bruising?denies.?Bleeding problem?denies.?Genitourinary:?Blood urine?denies.?Frequent/Painfu/urination/bladder control?denies.?Kidney stones?admits.?Infection (UTI)?denies.?Nephropathy?admits.?sex trans dis (STD)?denies.?Prostate?denies.?Musculoskeletal:?Hammertoes?denies.?Bunions?denies.?Back Pain?denies.?Muscle Cramps/ Resting?denies.?Muscle cramps / walking?denies.?Generalized aches and pains?denies.?Weakness?denies.?Integ.:?Medrano?denies.?Scars?denies.?Corns/calluses?denies.?Ingrown nails?denies.?Painful nails?denies.?Open Sores?denies.?Rashes?denies.?Neurologic:?Difficulty sleeping?denies.?Brain disorder?denies.?Numbness?denies.?Balance t rouble?denies.?Confusion?denies.?Fainting/blackouts?denies.?Tingling?denies.?Az mors?denies.? * Medical History:? * Surgical History:?bypass mick brenna RLE 08/28/2022, arotid artery 03/2019amputation of 3rd toe right foot 2023Open Heart Surgery ngioplasty RLE 02/2024 * Hospitalization/Major Diagno stic Procedure:?[facility] - Sepsis - IV antibiotics 2023 * Family History:?Mother: unkn own, heart attack, diagnosed with Diabetic - NIDDM, Unspecified heart disease.?Father: unknown, heart attack, diagnosed with Diabetic - NIDDM, Unspecified heart disease.? * Social History:?Tobacco Use:?Tobacco Use/Smoking?Are you a:?current smoker ?How often do you smoke cigarettes??every day ?How many cigarettes a day do you smoke??5 or less ?How soon after you wake up do you smoke your first cigarette??6-30 minutes ?Additional Findings: Tobacco Non-User?Current non-smoker ?Tobacco use other than smoking?Are you an other tobacco user??No ???Miscellaneous:?Caffeine: yes, frequency: , 1-2 cups per day. ?Children: yes, 2. ?Exercise: yes, walking. ?Marital status: . ?Occupation: Retired. * Medications:?TakingJardiance Vitamin D3 Vitamin B Complex Multivitamin Folic Acid Vitamin C Plavix eliquis 5 mg Tablet Atorvastatin Calcium 80 MG Tablet 1 tablet Orally Once a day Metoprolol Succinate 25 MG Capsule ER 24 Hour Sprinkle 1 capsule Orally Once a day Sertraline HCl 50 MG Tablet 1 tablet Orally Once a day amLODIPine Besylate 10 MG Tablet 1 tablet Orally Once a day Furosemide 40 MG Tablet Oral Clopidogrel Bisulfate 75 MG Tablet Oral Extra Depth Orthopedic Shoes, (1) Pair With (3) Pair Custom Heat Molded Multidensity Innersoles . dx: niddm/pvd(e11.51), hammertoe foot deformity(m20.41,m20.42), preulcerative skin lesion(s)(l85.1) Wear Daily; amputation right 3rd toe Ammonium Lactate 12 % Cream 1 application Externally Twice a day Ammonium Lactate 12 % Cream 1 application Externally to affected areas of dry skin to feet except for between the toes Twice a day Taking Jardiance Taking Vitamin D3 Taking Vitamin B Complex Taking Multivitamin Taking Folic Acid Taking Vitamin C Taking Plavix Taking eliquis 5 mg Tablet Taking Atorvastatin Calcium 80 MG Tablet 1 tablet Orally Once a day Taking Metoprolol Succinate 25 MG Capsule ER 24 Hour Sprinkle 1 capsule Orally Once a day Taking Sertraline HCl 50 MG Tablet 1 tablet Orally Once a day Taking amLODIPine Besylate 10 MG Tablet 1 tablet Orally Once a day Taking Furosemide 40 MG Tablet Oral Taking Clopidogrel Bisulfate 75 MG Tablet Oral Taking Extra Depth Orthopedic Shoes, (1) Pair With (3) Pair Custom Heat Molded Multidensity Innersoles . dx: niddm/pvd(e11.51), hammertoe foot deformity(m20.41,m20.42), preulcerative skin lesion(s)(l85.1) Wear Daily; amputation right 3rd toe Taking Ammonium Lactate 12 % Cream 1 application Externally Twice a day Taking Ammonium Lactate 12 % Cream 1 application Externally to affected areas of dry skin to feet except for between the toes Twice a day Not-Taking/PRNmetFORMIN HCl 500 MG Tablet TAKE 1 TABLET BY MOUTH TWO TIMES A DAY Oral Aspirin 81 MG Tablet Chewable 1 tablet Orally Once a day Doxycycline Monohydrate 100 MG Capsule 1 capsule Orally Twice a day Gabapentin 300 MG Capsule Oral oxyCODONE HCl 5 MG Tablet Oral Santyl 250 UNIT/GM Ointment External Medication List reviewed and reconciled with the patientNot-Taking/PRN metFORMIN HCl 500 MG Tablet TAKE 1 TABLET BY MOUTH TWO TIMES A DAY Oral Not-Taking/PRN Aspirin 81 MG Tablet Chewable 1 tablet Orally Once a day Not-Taking/PRN Doxycycline Monohydrate 100 MG Capsule 1 capsule Orally Twice a day Not-Taking/PRN Gabapentin 300 MG Capsule Oral Not-Taking/PRN oxyCODONE HCl 5 MG Tablet Oral Not-Taking/PRN Santyl 250 UNIT/GM Ointment External Medication List reviewed and reconciled with the patient * Allergies:?Codeine: AllergyA moxicillin: hives - Side EffectsmetFORMIN HCl: nauseayes[Allergies Verified] Objective: * Vitals:?Ht: 5ft 3in, Wt: 172 , BMI: 30.47, Shoe size: 8W-8.5W, BP: 122/80 mm Hg, BS: not taken, Ht-cm: 160.02 cm, Wt-k.02 kg. * ???Past Orders: ???Lab:HEMOGLOBIN A1C (GLYCO HEMOGLOBIN) (Order Date - 01/24/2024) (Collection Date & Time - 01/24/2024 09:05 AM) ? Value Reference Range ?HEMOGLOBIN A1C % (HH) 7.3 * Examination: ???Ophthalmology Referral: ?DIABETES EYE EXAM?Procedure Performed:?Yes ?Date of Exam Performed?05/23/2024 ?Findings of Diabetic Eye Exam:?no retinopathy?Vascular: ?DP PULSES (B):? 0/4, B/L.?PT PULSES (B):? 0/4, B/L.?CAPILLARY FILL TIME:? delayed, all digits, B/L.?TROPHIC CONDITION-TEXTURE/ELASTICITY/TURGOR/HAIR GROWTH (B):?, fragile, thin, shiny skin , with sparse to absent hair growth , decreased, B/L.?TEMPERTURE GRADIENT (C):?, decreased, cool to cold, proximal to distal, B/L.?PIGMENTATION:?pale, B/L?.?EDEMA (C):?absent, B/L.?REST PAIN:? admits, right.?Dermatologic: ?SKIN FINDINGS:?Skin exam reveals Keratotic lesion(s) located at?Medial plantar, TA, T5, Plantar, T6,? sub met head 1, 5 right, heels B/L;Skin shows?LESS,sign(s) of, dryness, scaling, in a stocking fashion, no fissure(s) present, B/L.?Nails: ?NAILS are:?Elongated, overgrown, dystrophic, lytic, greater than 3mm thick, discolored and friable with crumbly malodorous subungual debris, with pain on palpation, TA, T1, T2, T3, T4, T5, T6, T8, T9.?General Examination: ?GENERAL APPEARANCE:?Reveals a pleasant, alert, well nourished, well- developed, well hydrated individual, who demonstrates proper attention to hygiene/body habitus, and is in no acute distress, Pt serves as own historian for office visit today.?ORIENTED:?person, place, and time.?FOOT EXAM:?Lower Extremity Neurological Exam performed:?Yes ?Visual exam of foot performed:?Yes ?Date?07/08/2024 ?Sensory testing performed:?sensations diminished ?Pedal pulse taking performed:?absent ?Footwear Evaluation?Footwear Evaluation performed:?Yes?Neurological: ?SENSORY:?(DM/Neuro) Neurological exam demonstrates reduced sharp/dull pin prick discrimination reduced light touch sensation reduced vibration sensation reduced proprioception sensation in a stocking fashion 5.07 monofilament test performed at plantar aspects of 5 varied sites per foot shows sensation plantar aspects absent at Forefoot B/L.?Orthopedic: ?MUSCLE STRENGTH:?5/5 all groups in a symmetrical fashion, B/L.?DIGITAL DEFORMITIES:?Amputation T7.?FOOTWEAR EVALUATION:?worn, non-supportive, shoe gear properties exacerbate patients foot/toe deformity.? Assessment: * Assessment: 1.?Xerosis of skin - L85.3?? 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 Plan: * Treatment: * Procedures:?Debride Nail 6-10:?Nail debridement?Due to the clinical pathology outlined in the exam findings, performance of this nail treatment is medically necessary as its management by an unskilled/untrained nonprofessional would put this patients foot and overall health at risk. Therefore, debridement to affected nail(s), as described in exam ( TA, T1, T2, T3, T4, T5, T6,T8, T9, ), was performed exclusively by the physician of record to reduce/remove overall nail length, girth, thickness, subungual debris, and necrotic tissue, by manual and/or electrical means through the use of a nail nipper and/or dremel-type cutter grinder, to a more viable healthy nail plate or bed tissue 6-10 nails in total. Silver nitrate was used for any petechial bleeding as necessary. Definitive antifungal treatment options, both pharmaceutical and surgical, have been reviewed and discussed with the patient. The patient solely prefers the use of intermittent/as needed professional debridement services for their nail condition and understands the need for additional periodic treatments to maintain effectiveness in symptomatic relief - 38945.?Keratoma Treatment:?Parring or Cutting of Benign Hyperkeratotic Lesion(s)?(-57) More than 4 Lesions - Due to the at risk nature of the patients medical condition as documented in the exam findings, performance of this keratoderma treatment is medically necessary as its management by an unskilled/untrained nonprofessional would put this patients foot and overall health at risk. Therefore, the benign hyperkeratotic lesions, ( 7) in total, locations as stated and described in the exam (?Medial plantar,?TA, T5,?Plantar,?T6,??sub met head 1, 5 right, heels B/L;), were pared, and/or cut utilizing a sterile 15 blade, tissue nippers, and/or power dremel instrumentation by the physician of record - [id number].? * Procedure Codes:?48339 DEBRI DE NAIL, 6 OR MORE, Modifiers: XS 02029 TRIM SKIN LESIONS, OVER 4, Modifiers: XS * Preventive Medicine:? ??Counseling:?Tobacco use:?Type of Tobacco Use Cessation Counseling provided?Smoking effects education ?Patient counseled on the dangers of smoking and urged to quit:?07/08/2024 ?Xerosis:?Given recent successful results to treatment, The patient is to cont the rx cream as directed.? ??Screening/Special Tests:?Fall Risk?Assessment:?Performed ?Screening:?No falls in the past year ?FALLS: Screening for Future Fall Risk?Have you had two or more falls in the past year??No ?Have you had any falls with injury in the past year??No * Follow Up:?4 Months * Images: * Sign off status: Completed true * Provider:?Radha Dover DPM Date:? Generated for Lupe baugh/Donato/Tal on:?07/21/2024 02:16 PM EDT History and Physical Notes * HPI (History of Present Illness) Category Sub-Category Detail Notes Category Not es Skin problems Nature: dryness , scaling Location: B/L Duration: a few months Course: improved Treatments: medication ( AM Lact in ) At Risk footcare Pt States Last PCP Visit: Date: 4 Examination Category Sub-Category Detail Notes Category Not es Neurological SENSORY: (DM/Neuro) Neuro logical exam demonstrates reduced sharp/dull pin prick discrimination reduced light touch sensation reduced vibration sensation reduced proprioception sensation in a stocking fashion 5.07 monofilament test performed at plantar aspects of 5 varied sites per foot shows sensation plantar aspects absent at Forefoot B/L Dermatologic SKIN FINDINGS: Skin exam reveal s Keratotic lesion(s) located at Medial plantar, TA, T5, Plantar, T6, sub met head 1, 5 right, heels B/L; Skin shows LESS, sign(s) of, dryness, scaling, in a stocking fashion, no fissure(s) present, B/L Orthopedic FOOTWEAR EVALUATION: worn, non-s upportive, shoe gear properties exacerbate patients foot/toe deformity DIGITAL DEFORMITIES: Amputation T7 MUSCLE STRENGTH: 5/5 all groups in a symmetrical fashion, B/L General Examination GENERAL APPEARANCE: Reveals a pleasant, alert, well nourished, well-developed, well hydrated individual, who demonstrates proper attention to hygiene/body habitus, and is in no acute distress, Pt serves as own historian for office visit today FOOT EXAM: Lower Extremity Neurological Exa m performed:: Yes Visual exam of foot performed:: Yes Date: 07/08/2024 Sensory testing performed:: sensations d iminished Pedal pulse taking performed:: absent ORIENTED: person, place, and t noemi Footwear Evaluation Footwear Evaluation performe d:: Yes Ophthalmology Referral DIABETES EYE EXAM Procedure Perform ed:: Yes ?Date of Exam Performed: 05/23/2024 Findings of Diabetic Eye Exam:: no retin opathy Vascular DP PULSES (B): 0/4, B/L PT PULSES (B): 0/4, B/L CAPILLARY FILL TIME: delayed, all digits , B/L TEMPERTURE GRADIENT (C): , decreased, co ol to cold, proximal to distal, B/L TROPHIC CONDITION-TEXTURE/ELASTICITY/TURGOR/HAIR GROWTH (B): , fragile, thin, shiny skin , with spars e to absent hair growth , decreased, B/L EDEMA (C): absent, B/L REST PAIN: admits, right PIGMENTATION: pale, B/L Nails NAILS are: Elongated, overg rown, dystrophic, lytic, greater than 3mm thick, discolored and friable with crumbly malodorous subungual debris, with pain on palpation, TA, T1, T2, T3, T4, T5, T6, T8, T9
--- OUTSIDE RECORDS SUMMARY | 2024-07-21 14:17 | XMS_ITS ---
Author Organization [facility] on Care Team Providers Care Crisis Worker Name Role Phone Gabby Meadows Unavailable Unavailable Sandy Mckeon Unavailable Unavailable Cristina Butts Unavailable Unavailable Zo, Darryl Unavailable Unavailable Fadumo Negrete Unavailable Unavailable Lesley Muniz Unavailable Unavailable Danyel Norris Unavailable Unavailable Belia Laboy Unavailable Unavailable Allergies and adverse reactions Code CodeSystem Substance Reaction Severity StartDate Concern Status 723 RXNORM Amoxicillin Unknown 09/24/2022 active Care Team Name Role Address Phone Organization Dates Cristina Butts PCP [address] [place] [address], [id number], [facility] (Office): : [facility] 09/24/2022 - 10/11/2022 Gabby Meadows Attending Physician [address] [place], [place], [facility], [place] (Office): [phone] [facility] 09/24/2022 - 10/11/2022 Sandy Mckeon Attending Physician [address] [place] [address], [id number], [place] (Office): [facility] 09/24/2022 - 10/11/2022 Darryl Pathak Attending Physician [address] [address], [facility] (Office): [facility] 09/24/2022 - 10/11/2022 Fadumo Negrete Attending Physician [address] [place], [address], [place] (Office): [facility] 09/24/2022 - 10/11/2022 Lesley Muniz Attending Physician [address] [place], [address], [place] (Office): : [facility] 09/24/2022 - 10/11/2022 Danyel Norris Attending Physician [address] [place], [address], [place] (Office): [facility] 09/24/2022 - 10/11/2022 Belia Laboy Attending Physician [address] [place], [address], [place] (Office): : [facility] 09/24/2022 - 10/11/2022 Immunizations Immunization Status Vaccine Details Vaccine Code CodeSystem Date Notes TB 1 Step Mantoux (PPD) completed tuberculin skin test; unspecified formulation lotNumber: [id number] expiry: 09/01/2025 Mfg: safoni pasteur Given 0.1 ml Right Forearm intradermally 98 CVX created date: 10/02/2022 consent date: 10/02/2022 administer ed date: 10/02/2022 [place] implanted Prevnar 20 Pneumococcal conjugate (PCV20) cancelled Pneumococcal conjugate vaccine 20-valent (PCV20), polysaccharide [id number] conjugate, adjuvant, preservative free 216 CVX created date: 10/10/2022 consent date: 10/10/2022 SARS-COV-2 (COVID-19 BOOSTER) cancelled SARS-COV-2 (COVID-19) vaccine, mRNA, spike protein, LNP, bivalent, preservative free, 30 mcg/0.3 mL dose, kate-sucrose formulation 300 CVX created date: 10/10/2022 consent date: 10/10/2022 Mental Status Section Date Assessment Total Score Description 10/11/2022 BIMS 15 cognitively int act CAM 0 No delirium ind icated 09/30/2022 BIMS 14 cognitively int act CAM 0 No delirium ind icated PHQ-9 13 moderate depres crystal Problems Problem # Description Date of onset Resolved Date Code CodeSystem Concern Status 1 ANEMIA, UNSPECIFIED 09/25/[address] active 2 ANXIETY DISORDER, UNSPECIFIED 09/25/[address] active 3 ATHEROSCLEROTIC HEART DISEASE OF [place] CORONARY ARTERY WITHOUT ANGINA PECTORIS 09/25/[address] active 4 CARDIOGENIC SHOCK 09/25/[address] active 5 ENCOUNTER FOR SURGICAL AFTERCARE FOLLOWING SURGERY ON THE CIRCULATORY SYSTEM 09/25/[address] active 6 ESSENTIAL (PRIMARY) HYPERTENSION 09/25/[address] active 7 HYPERLIPIDEMIA, UNSPECIFIED 09/25/[address] active 8 MAJOR DEPRESSIVE DISORDER, RECURRENT, UNSPECIFIED 09/25/[address] active 9 OTHER NONRHEUMATIC AORTIC VALVE DISORDERS 09/25/[address] active 10 ST 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 09/25/[address] active 11 TYPE 2 DIABETES MELLITUS WITHOUT COMPLICATIONS 09/25/[address] active 12 UNSPECIFIED ATRIAL FIBRILLATION 09/25/[address] active 13 UNSPECIFIED SYSTOLIC (CONGESTIVE) HEART FAILURE 09/25/[address] active Reason for Referral No Reasons for Referral Entered Social History Social History Observation Description Start Date End Date Code Code System Current Smoking Status Tobacco smoking consumption unknown 481677366 SNOMED CT Sex Assigned At Female 1945 [address]-1 [facility] Vital Signs Code Code System Vitals Name Values and Units Timing Information 2339-0 LOINC Blood Sugar Llykq=728.0 Units=mg/dL 10/11/2022 9279-1 LOINC Respiratory Rate Value=18.0 Units=/m in 10/10/2022 8462-4 LOINC Blood Pressure-Diastolic Value=44 Un its=mmHg 10/10/2022 8480-6 LOINC Blood Pressure-Systolic Xqttb=303 Un its=mmHg 10/10/2022 8310-5 LOINC Body Temperature Value=97.4 Units=?? F 10/10/2022 8867-4 [facility] Heart rate Value=75.0 Units=/min 31775-1 [facility] O2 % dC Oximetry Value=99.0 Units= % 10/10/2022 06121-4 [facility] Pain Level Value=0.0 10/10/2022 53264-1 [facility] Weight Qdmff=035.0 Units=Lbs 8302-2 [facility] Height Value=66.0 Units=Inches 09/25/2022
--- OUTSIDE RECORDS SUMMARY | 2024-07-21 14:17 | XMS_ITS | Encounter Summary ---
Author Organization [facility] Address [address] [place] [address] Care Team Providers Care Screw Cutter Name Role Phone Prakash Graham Lois Primary Care Provider [phone] Encounter Details Date Type Department Care Team (Latest Contact Info) Description 07/20/2024 12:52 PM EDT Hospital Encounter [facility] Vascular Lab [address] [place], [place] [id number] Yenifer Schumacher MD [address] [place] [address] Asymptomatic bilateral carotid artery stenosis Discharge Disposition: Home or Self Care () Social History Tobacco Use Types Packs/Day Years Used Date Smoking Tobacco: Every Day Cigarettes 0.5 66.3 Started: 1956 Passive Smoke Exposure: Past Smokeless Tobacco: Never Comments:7-8 cigarettes TAMANNA Y Alcohol Use Standard Drinks/Week Comments Not Currently 0 (1 standard drink = 0.6 oz pur e alcohol) wine on holidays Comments No Sex and Gender Information Value Date Recorded Sex Assigned at Female 06/26/2023 6:56 AM EDT Legal Sex Female 9:56 AM EST Gender Identity Female 06/26/2023 6:56 AM EDT Sexual Orientation Not on file documented as of this encounter Medications at Time of Discharge acetaminophen (TYLENOL) 325 mg tablet Take 2 tablets (650 mg total) by mouth every 4 hours as needed for pain. 07/05/2023 amLODIPine (NORVASC) 10 mg tablet Take 10 mg by mouth daily. 01/25/2023 ammonium lactate (AMLACTIN) 12 % cream 1 Application every 12 (twelve) hours. 11/05/2023 apixaban (ELIQUIS) 5 mg tablet Take 5 mg by mouth every 12 hours. ascorbic acid (VITAMIN C) 500 mg tablet Take 500 mg by mouth once a day. atorvastatin (LIPITOR) 80 mg tablet Take 80 mg by mouth nightly. cholecalciferol (VITAMIN D3) 1,000 unit tablet Take 1,000 Units by mouth once a day. docusate sodium 100 mg tablet Take 100 mg by mouth. empagliflozin (JARDIANCE) 10 mg Take 25 mg by mouth. ferrous sulfate 325 mg (65 mg iron) tablet Take 325 mg by mouth. folic acid 0.8 mg capsule Take 1 capsule by mouth daily. 08/27/2022 furosemide (LASIX) 40 mg tablet Take 1 tablet (40 mg total) by mouth once a day. 30 tablet 07/05/2023 12:15 PM EDT 07/06/2023 metoprolol succinate XL (TOPROL XL) 25 mg tablet Take 25 mg by mouth daily. 11/02/2022 multivitamin with iron-mineral tablet Take 1 capsule by mouth daily. 10/29/2022 sertraline (ZOLOFT) 50 mg tablet Take 50 mg by mouth daily. Pt takes half tab daily 04/29/2023 VITAMIN B COMPLEX ORAL Take 1 tablet by mouth daily. 08/27/2022 documented as of this encounter Plan of Treatment Upcoming Encounters Date Type Department Care Team (Late st Contact Info) Description 12/28/2024 1:45 PM EDT Appointment [facility] [address] [place] [address] 12/28/2024 2:30 PM EDT Appointment [facility] [address] [place] [address] 12/28/2024 3:30 PM EDT Follow-Up [facility] Building Vascular Surgery [address] [place] [address] Catering Administrative Assistant: Dia Sol NP [address] [place] [address] Pending Results Name Type Priority Associated Diagnoses Date /Time Carotid Duplex Scan Vascular Ultrasound Routine Asymptomatic bilateral carotid artery stenosis 07/20/2024 2:17 PM EDT Scheduled Orders Name Type Priority Associated Diagnoses Order Schedule Carotid Duplex Scan Vascular Ultrasound Routine Asymptomatic bilateral carotid artery stenosis Once for 1 Occurrences starting 07/20/2024 until 07/20/2024 documented as of this encounter Visit Diagnoses Diagnosis Asymptomatic bilateral carotid artery stenosis documented in this encounter Care Teams Screw Cutter Relationship Specialty Start Date End Date Prakash Graham [facility] Internal Medicine [address] [place] [address] PCP - General Internal Medicine 05/30/23 documented as of this encounter
--- OUTSIDE RECORDS SUMMARY | 2024-07-21 14:17 | XMS_ITS | Patient Health Record ---
Author Organization [facility] [place] Address [address] [place] [address] Care Team Providers Care Associate Merchandise Planner Name Role Phone Prakash Graham MD Primary Care Provider Radha Broderick Unavailable [phone] Albin Weinstein Unavailable [phone] Allergies Allergen (clinical drug ingredient) Drug/Non Drug Allergy documented on EMR Reaction Allergy Type Onset Date Status amoxicillin Amoxicillin hives Drug Allergy Act nanci metformin metFORMIN HCl nausea Drug Allergy Act nanci codeine Codeine Unknown Drug Allergy Active Results Component Value Reference Range Notes HEMOGLOBIN A1C (GLYCOHEMOGLO BIN) Reviewed date:04/07/2024 09:06:48 AM Interpretation: Performing Lab: Notes/Report: HEMOGLOBIN A1C % (HH) 7.3 Reason For Referral No Information Medications Medication SIG (Take, Route, Frequency, Duration) Notes Start Date End Date Status Plavix Active metFORMIN HCl 500 MG TAKE 1 TABLET BY [facility] TWO TIMES A DAY Oral for 7 Days Not-Taking eliquis 5 mg Active Aspirin 81 MG 1 tablet Orally Once a day Not-Taking Atorvastatin Calcium 80 MG 1 tablet Orally Once a day Active Doxycycline Monohydrate 100 MG 1 capsule Orally Twice a day for 10 days 04/22/2023 Not-Taking Metoprolol Succinate 25 MG 1 capsule Orally Once a day Active Gabapentin 300 MG Oral for 30 Days Not-Taking Clopidogrel Bisulfate 75 MG Oral for 90 Days Active Multivitamin Active Extra Depth Orthopedic Shoes, (1) Pair With (3) Pair Custom Heat Molded Multidensity Innersoles dx: niddm/pvd(e11.51), hammertoe foot deformity(m20.41,m20.42) , preulcerative skin lesion(s)(l85.1) Wear Daily; amputation right 3rd toe for 365 days 11/05/2023 Active Folic Acid Active Ammonium Lactate 12 % 1 application Exte rnally Twice a day for 30 days Active Vitamin C Active Ammonium Lactate 12 % 1 application Exte rnally to affected areas of dry skin to feet except for between the toes Twice a day for 30 days Active Sertraline HCl 50 MG 1 tablet Orally Onc e a day Active oxyCODONE HCl 5 MG Oral for 14 Days Not-Taking Jardiance Active amLODIPine Besylate 10 MG 1 tablet Orally Once a day Active Santyl 250 UNIT/GM External for 30 Days Not-Taking Vitamin D3 Active Furosemide 40 MG Oral for 30 Days Active Vitamin B Complex Ac tive Immunizations Vaccine Route Administration Date Status Comme nts Influenza Unknown 08/09/2023 Others Social History Tobacco Use: Social History Observation [...] Additional Findings: Tobacco Non-User Current no n-smoker Alcohol Screen Question Answer Notes Did you have a drink containing alcohol in the p ast year? No Points 0 Interpretation Negative Tobacco use other than smoking: Question Answer Notes Are you an other tobacco user? No Problems Problem Type SNOMED Code ICD Code Onset Dates Problem Status W/U Status Risk Notes Problem Acquired hammer toe of right foot (5362298533319466) Other hammer toe(s) (acquired), right foot (M20.41) Active confirmed Problem Type 2 diabetes mellitus with peripheral angiopathy (386732421) Type 2 diabetes mellitus with diabetic peripheral angiopathy without gangrene (E11.51) Active confirmed Problem Acquired hammer toe of left foot (4088370823541395) Other hammer toe(s) (acquired), left foot (M20.42) Active confirmed Problem Peripheral circulatory disorder associated with type 1 diabetes mellitus (080776323) Type 1 diabetes mellitus with diabetic peripheral angiopathy without gangrene (E10.51) Active confirmed Problem 719465520 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 Problem 152997051 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) Active confirmed Problem 89154985708127327 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) Active confirmed Problem Ischemic ulcer o f right foot with fat layer exposed (L97.512) Active confirmed Response to treatment Vital Signs Blood pressure diastolic 80 mm Hg 07/08/2024 Height 5ft 3in in 07/08/2024 Blood pressure systolic 122 mm Hg 07/08/2024 Weight 172 lbs 07/08/2024 BMI 30.47 kg/m2 07/08/2024 Encounters Encounter Location Date Provider Diagnosis [address] [address] 08/09/2023 Radha Dover Type 2 diabetes mellitus with diabetic peripheral angiopathy without gangrene E11.51 ; Gangrene of toe of right foot I96 ; Atherosclerosis 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 I70.263 ; Tinea unguium B35.1 ; Pain in right toe(s) M79.674 and Pain in left toe(s) M79.[address] [address] 08/16/2023 Radha Dover Type 2 diabetes mellitus with diabetic peripheral angiopathy without gangrene E11.51 ; Gangrene of toe of right foot I96 ; Atherosclerosis 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 I70.263 ; Pain in right toe(s) M79.674 and Ischemic ulcer of right foot with fat layer exposed L97.[address] [address] 11/05/2023 Radha Dover Type 2 diabetes mellitus with diabetic peripheral angiopathy without gangrene E11.51 ; Other hammer toe(s) (acquired), right foot M20.41 ; Gangrene of toe of right foot I96 ; Atherosclerosis 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 I70.263 ; Other hammer toe(s) (acquired), left foot M20.42 ; Xerosis of skin L85.3 and Tinea unguium B35.[address] [address] 01/22/2024 Radha Dover Type 2 diabetes mellitus with diabetic peripheral angiopathy without gangrene E11.51 ; Atherosclerosis 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 I70.263 ; Pain in right toe(s) M79.674 ; Tinea unguium B35.1 ; Pain in left toe(s) M79.675 and Xerosis of skin L85.[address] [address] 04/07/2024 Radha Dover Type 2 diabetes mellitus with diabetic peripheral angiopathy without gangrene E11.51 ; Xerosis of skin L85.3 ; Atherosclerosis 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 I70.263 ; Tinea unguium B35.1 and Type 2 diabetes mellitus with polyneuropathy E11.[address] [address] 07/08/2024 Radha Dover Xerosis of skin L85. 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 ; Type 2 diabetes mellitus with diabetic peripheral angiopathy without gangrene E11.51 ; Atherosclerosis 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 I70.263 and Tinea unguium B35.1 [facility] [address] [address] 07/31/2023 Albin Weinstein [address] [address] 11/05/2023 Radha Dover [address] [address] 04/07/2024 Radha Dover Assessments Encounter Date Diagnosis (ICD Code) Assessment Notes Treatment Notes Treatment Clinical Notes Section Notes 08/09/2023 Type 2 diabetes mellitus with diabetic peripheral angiopathy without gangrene (ICD-10 - E11.51) 08/09/2023 Gangrene of toe of right foot (ICD-10 - I96) 08/16/2023 Type 2 diabetes mellitus with diabetic peripheral angiopathy without gangrene (ICD-10 - E11.51) 11/05/2023 Other hammer toe(s) (acquired), right foot (ICD-10 - M20.41) Patient Educated with: DIABETIC FOOT CARE INSTRUCTIONS. pdf (DIABETIC FOOT CARE INSTRUCTIONS. pdf) 11/05/2023 Type 2 diabetes mellitus with diabetic peripheral angiopathy without gangrene (ICD-10 - E11.51) 08/16/2023 Gangrene of toe of right foot (ICD-10 - I96) 01/22/2024 Type 2 diabetes mellitus with diabetic peripheral angiopathy without gangrene (ICD-10 - E11.51) 01/22/2024 Atherosclerosis 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 (ICD-10 - I70.263) 04/07/2024 Type 2 diabetes mellitus with diabetic peripheral angiopathy without gangrene (ICD-10 - E11.51) 04/07/2024 Xerosis of skin (ICD-10 - L85.3) 07/08/2024 Xerosis of skin (ICD-10 - L85.3) 07/08/2024 Type 2 diabetes mellitus with polyneuropathy (ICD-10 - E11.42) 04/07/2024 Atherosclerosis 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 (ICD-10 - I70.263) 07/08/2024 Type 2 diabetes mellitus with diabetic peripheral angiopathy without gangrene (ICD-10 - E11.51) 01/22/2024 Pain in right toe(s) (ICD-10 - M79.674) 11/05/2023 Gangrene of toe of right foot (ICD-10 - I96) 08/16/2023 Atherosclerosis 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 (ICD-10 - I70.263) 08/09/2023 Atherosclerosis 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 (ICD-10 - I70.263) 08/09/2023 Tinea unguium (ICD-10 - B35.1) 08/16/2023 Pain in right toe(s) (ICD-10 - M79.674) 11/05/2023 Atherosclerosis 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 (ICD-10 - I70.263) 01/22/2024 Tinea unguium (ICD-10 - B35.1) 04/07/2024 Tinea unguium (ICD-10 - B35.1) 07/08/2024 Atherosclerosis 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 (ICD-10 - I70.263) 07/08/2024 Tinea unguium (ICD-10 - B35.1) 04/07/2024 Type 2 diabetes mellitus with polyneuropathy (ICD-10 - E11.42) 01/22/2024 Pain in left toe(s) (ICD-10 - M79.675) 08/16/2023 Ischemic ulcer of right foot with fat layer exposed (ICD-10 - L97.512) Response to treatment Patient Educated with: WOUND CARE INSTRUCTIONS. pdf (WOUND CARE INSTRUCTIONS. pdf) 08/09/2023 Pain in right toe(s) (ICD-10 - M79.674) 11/05/2023 Other hammer toe(s) (acquired), left foot (ICD-10 - M20.42) 08/09/2023 Pain in left toe(s) (ICD-10 - M79.675) 11/05/2023 Xerosis of skin (ICD-10 - L85.3) 01/22/2024 Xerosis of skin (ICD-10 - L85.3) 11/05/2023 Tinea unguium (ICD-10 - B35.1) 11/05/2023 Other Plan Of Treatment Next Appt Details Provider Name:Radha fairbanks, 11/10/2024 09:00:00 AM, [address] [place], [address], Insurance Providers Payer Name Payer Address Payer Phone Subscriber Number Group Number Insured Name Patient Relationship to Insured Coverage Start Date Coverage End Date Medicare [employer] [address] [place] [address] [id number] Dia Kimball Self - patient is the insured [facility] [address] [place] [address] [phone] [id number] Dia Kimball Self - patient is the insured Medical (General) History Medical History History ICD Code Diabetic Heart disease High blood pressure Neuropathy Stroke Measles Mumps Chicken pox Replacement Heart Valves Transfusions ampuation Stress Wounds Surgical History Surgery Date(Month/Year) bypass surgery RLE 08/28/2022, 06/2023 carotid artery 03/2019 amputation of 3rd toe right foot 2023 Open Heart Surgery 2022 angioplasty RLE 02/2024 Hospitalization History Reason Date(Month/Year) [facility] - Sepsis - IV a ntibiotics 2023
--- OUTSIDE RECORDS SUMMARY | 2024-07-21 14:17 | XMS_ITS | Clinical Summary ---
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 11/03/19 23 Active sertraline (ZOLOFT) 50 mg tablet Take 50 mg by mouth daily. Pt takes half tab daily 04/29/19 24 Active amLODIPine (NORVASC) 10 mg tablet Take 10 mg by mouth daily. 01/26/20 23 Active folic acid 0.8 mg capsule Take 1 capsule by mouth daily. 08/28/19 23 Active VITAMIN B COMPLEX ORAL Take 1 tablet by mouth daily. 08/28/19 23 Active multivitamin with iron-mineral tablet Take 1 capsule by mouth daily. 10/30/19 23 Active cholecalcifero l (VITAMIN D3) 1,000 unit tablet Take 1,000 Units by mouth once a day. Active ascorbic acid (VITAMIN C) 500 mg tablet Take 500 mg by mouth once a day. Active atorvastatin (LIPITOR) 80 mg tablet Take 80 mg by mouth nightly. Active apixaban (ELIQUIS) 5 mg tablet Take 5 mg by mouth every 12 hours. Active acetaminophen (TYLENOL) 325 mg tablet Take 2 tablets (650 mg total) by mouth every 4 hours as needed for pain. 07/05/19 Active furosemide (LASIX) 40 mg tablet Take 1 tablet (40 mg total) by mouth once a day. 30 tablet 4 12:15 PM EDT 07/06/19 Active empagliflozin (JARDIANCE) 10 mg Take 25 mg by mouth. Active docusate sodium 100 mg tablet Take 100 mg by mouth. Active ferrous sulfate 325 mg (65 mg iron) tablet Take 325 mg by mouth. Active ammonium lactate (AMLACTIN) 12 % cream 1 Application every 12 (twelve) hours. 11/05/19 Active clopidogreL (PLAVIX) 75 mg tablet Take 1 tablet (75 mg total) by mouth once a day. 90 tablet 4 12:15 PM EDT 07/05/19 025 Discontinued (Therapy Completed or No Longer Needed) Active Problems Problem Noted Date Diagnosed Date Atherosclerosis of pit [place] ar an[place] of right lower extremity with rest pain 07/20/2024 Bypass graft stenosis 02/10/2024 Claudication of both lower extremities Cellulitis of right lower extremity 07/30/2023 Assessment & Plan (07/30/2023 2:46 PM EDT): Presented to [facility] with temperature of 103.5, leukocytosis, and RLE swelling and erythema, in the setting of recent bilateral femoral artery bypass and toe amputation. OSH CT femur with contrast was notable for loose collection along the graft measuring 2.7x2.1x6.0 cm, likely representing post-op seroma and xray of right tibia/fibula/right foot showing lucency along the medial aspect of the proximal righ calf most consistent with soft tissue wound. No osteomyelitis of the right foot. Patient was treated with Cefepime and Vancomyin (07/27-07/31). MRSA negative. Patient transitioned to Doxycycline 100 mg BID (07/29-08/06/23). -Doxycycline 100 mg BID (07/29-08/05) -Vascular surgery following, appreciate recommendations -ID following, appreciate recommendations Sacral wound 07/30/2023 Assessment & Plan (07/30/2023 2:57 PM EDT): Noted to have pressure injury by nursing. Hx of pilonidal cyst and the pin point opening never completely closed. There is no drainage appreciated on the prior dressing and the patient reports very little drainage. -Per [facility]OCN, recommend Miconazole powder followed by Cavilon spray. Once the Cavilon is dry, cover the open area with a 3x3 Mepilex. Change daily. (HFpEF) heart failure with preserved ejection fr action 07/28/2023 Assessment & Plan (07/29/2023 3:40 PM EDT): Home meds: Furosemide 40 mg daily, Metoprolol succinate 25 mg daily History of HFrEF (EF 30-40%) with prior decompensations. During her admission here in June, the patient had increasing shortness of breath and oxygen requirements. CXR at this time showed pulmonary edema. She received several doses of IV lasix with improvement and weaned off of oxygen. She was started on 40 p.o. Lasix daily and a message was left with her air valve repairer for follow- up. It does not appear she every followed up with the air valve repairer. CXR at outside hospital showed bibasilar atelectasis, newly seen on the right and chronic on the left. Recommended short term follow-up chest radiographys. Moderate elevation of the right hemidiaphragm. -Hold home Furosemide 40 mg daily -Metoprolol tartrate 12.5 mg BID -Daily BMP, Mg. Replete for goal K>4, Mg>2 -Monitor Input/Output, daily weights Assessment & Plan (07/28/2023 1:40 AM EDT): During her admission here in June, the patient had increasing shortness of breath and oxygen requirements. CXR at this time showed pulmonary edema. She received several doses of IV lasix with improvement and weaned off of oxygen. She was started on 40 p.o. Lasix daily and a message was left with her air valve repairer for follow- up. It does not appear she every followed up with the air valve repairer. CXR at outside hospital showed bibasilar atelectasis , newly seen on the right and chronic on the left. Recommended short term follow up chest radiographys. Moderate elevation of the right hemidiaphragm. Patient is stable on room air. LS clear. She is on room air and SpO2 >92%. -incentive spirometry. -Follow up CXR 07/27 in AM. -Hold home lasix in setting of sepsis. Restart if indicated. -Monitor I&Os. -Daily Weights -Outpatient air valve repairer follow up. History of amputation of toe 07/28/2023 Assessment & Plan (07/30/2023 10:44 AM EDT): Patient had a recent toe amputation with Dr. Kasper on 06/30. She was last seen at an outpatient follow up appointment on 07/08. Per notes, incision appeared free of infection at this time. Area should be cleansed with hydrogen peroxide, patted dry, painted with Betadine, cover with Adaptic, cover with 4 x 4 DSD, wrapped in Kerlix, secure with paper tape. Dressings should be done every 2-3 days. Patient has reportedly missed several outpatient follow-up appointments. Xray of the right foot during this admission negative for osteomyelitis of the right foot. Patient seen by podiatry, who did not believe that this postoperative site contributed to patient's current presentation. Podiatry removed the sutures from her surgical site. -Dressing changes per podiatry recommendations: Betadine, cover with Adaptic, cover with 4 x 4 DSD, wrapped in Kerlix, secure with paper tape -Dressing changes every 2-3 days -Follow-up with podiatry in the outpatient setting Assessment & Plan (07/28/2023 2:42 AM EDT): Patient had a recent toe amputation with Dr. Kasper on 06/30. She was last seen at an outpatient follow up appointment on 07/08. Per notes, incision was inspected by myself and appears free of infection at this time. Area was cleansed with hydrogen peroxide, patted dry, painted with Betadine, cover with Adaptic, cover with 4 x 4 DSD, wrapped in Kerlix, secure with paper tape. It was recommended at this time, would like for the above dressing to be done every 2 to 3 days. Patient and her daughter were educated on the signs and symptoms of surgical wound infection and/or dehiscence, if they are to occur she is to call clinic immediately for evaluation. The plan was to follow-up with patient in approximately 3 weeks for possible suture removal, or certainly sooner if any acute issues arise. Xray of right foot at outside hospital showed No osteomyelitis of the right foot. -Dressing changes per podiatry recommendations: Betadine, cover with Adaptic, cover with 4 x 4 DSD, wrapped in Kerlix, secure with paper tape. -Consider consult to podiatry for further recommendations and possible suture removal due to unknown source of sepsis. Atherosclerosis of artery of extremity with ulce ration 06/10/2023 Assessment & Plan (04/23/2024 6:12 PM EST): Dia Dong is a 78 y.o. female who presents to vascular surgery clinic for routine post-operative follow up. Dia had a BL FEA, BL SILVER stent. R SILVER/EIA BMS, R Fem- BK POP bypass with contra GSV on 06/28/2023 by myself who was found to have high-grade distal anastomosis greater than 75% stenosis on surveillance duplex ultrasound and subsequently underwent a lower extremity angio with myself on March 11, 2024 where she had a balloon angioplasty of her distal anastomosis. Based on evaluating the patient today and review of her bypass surveillance exam, it appears that her distal anastomosis stenosis is no longer present after her balloon angioplasty. Her GALDINO has improved. She continues to have some neuropathic pain at her previous wound despite a patent bypass. Recommend that she can topically apply Voltaren cream or lidocaine patch to the area. Patient is not interested in oral medication to treat neuropathic pain. Patient also inquired surveillance for her carotid artery disease. We will follow-up with the patient in 3 months to include bypass surveillance studies in addition to carotid artery duplex ultrasound. The patient currently is on a daily aspirin and statin. Assessment & Plan (10/31/2023 11:55 AM EDT): Ms. Dong is a 78 y.o. female with a complex past medical and surgical history including CAD s/p CABG x3 with bioprosthetic aortic valve, carotid stenosis s/p L CEA, HTN, HLD, A Fib, DM2, Depression, CVA with expressive aphasia, and active smoking who had PAD and CLTI and therefore underwent bilateral femoral endarterectomy with placement of bilateral common iliac artery kissing stents and right common and external iliac BMS, as well as R femoral to below the knee popliteal bypass with contralateral GSV on June 28, 2023 with myself and a subsequent third toe amputation of the right lower extremity by Dr. Liu and podiatry. She now presents here for a wound check of her right medial calf wound from her previous GSV endoscopic vein harvest site for her CABG. Since then the patient has responded very well after clinical debridement and collagen. Patient reports that the wound is well-healed. We discussed how the VNA services no longer need to come and change her things. She endorses some medial right leg pain that she describes as sharp. We explained to her that this may be nerve fibers owing back as the area because as of right now the area is numb. She feels the pain is well-managed and would not like medication at this time. She also reports that her right toe amputation is also healing well. She looks forward to showering after her follow-up with podiatry in the near future. Today, we spoke about how your wound has healed nicely. It has been a long journey and we are happy you are doing better. We discontinue your VNA services. -Discharge VNA -Follow up as mer Assessment & Plan (07/30/2023 2:46 PM EDT): Home medication: Plavix 75 mg daily, Atorvastatin 80 mg nightly Patient underwent a bilateral femoral endarterectomy, kissing iliac stents with stents into the right common iliac artery and external iliac artery, right femoral to below-knee popliteal bypass with contralateral great saphenous vein with Dr. Schumacher on 06/28/23. Also, she had a right third toe amputation with Dr. Liu on 06/30. Had improvement in vascular exam postoperatively with Doppler signals for her DP and PT bilaterally. She was continued on her statin and started on Plavix at the time of discharge. She is weightbearing as tolerated in a postop shoe. Appears [facility] was also [facility] prior vein harvest incision at follow-up. Vascular follow up was supposed to be 07/31. Bilateral pedal pulses +2. -Continue home Plavix 75 mg daily and Atorvastatin 80 mg nightly -Pending 1mo surveillance GALDINO, aortoiliac duplex, RLE arterial duplex -Follow-up appointment with Vascular Surgery on 08/14 -Plan for OR debridement at the end of this month -Working with case management to increase VNA services from 3 times weekly to 5 times weekly -Vascular following, appreciate recommendations CAD (coronary artery disease) of bypass graft Assessment & Plan (07/30/2023 2:57 PM EDT): Home Medications: Atorvastatin 80 mg nightly History coronary bypass and aortic valve replacement. Followed by air valve repairer Dr. Stone. -Continue home Atorvastatin 80 mg nighty Assessment & Plan (07/28/2023 2:14 AM EDT): Images from the original note were not included. Home Medications: Plavix 75 mg daily, Atorvastatin 80 mg nightly. Patient underwent a bilateral femoral endarterectomy, kissing iliac stents with stents into the right common iliac artery and external iliac artery, right femoral to below-knee popliteal bypass with contralateral great saphenous vein with Dr. Schumacher on 06/28/23. Also, she had a right third toe amputation with Dr. Liu on 06/30. Had improvement in vascular exam postoperatively with Doppler signals for her DP and PT bilaterally. She was continued on her statin and started on Plavix at the time of discharge. She is weightbearing as tolerated in a postop shoe. Appears it was also the plan to transition to Santyl for right lower extremity prior vein harvest incision at follow-up. Vascular follow up was suppose to be 07/31. Vascular was consulted by ER, and [facility] doesn't believe post op site infection. They recommend admission to medicine for further workup of sepsis and they will follow alone. Bilateral pedal pulses +2. -Consult vascular; appreciate recs. -Continue home Plavix Type 2 diabetes mellitus wit hout complication, without long-term current use of insulin 06/06/2023 Assessment & Plan (07/29/2023 3:30 PM EDT): Home Medications: None. Hemoglobin A1c during this admission of 6.5. -LDISS -Monitor for hypoglycemia and hyperglycemia. Assessment & Plan (07/28/2023 2:27 AM EDT): Home Medications: none listed -Monitor blood sugar with meals /bedtime in the setting of sepsis and acute infection. -low dose sliding scale while inpatient due to illness. -Monitor for hypoglycemia and hyperglycemia. HTN (hypertension) 06/06/2023 Assessment & Plan (07/30/2023 2:50 PM EDT): Home Medications: Amlodipine 10 mg daily, Metoprolol succinate XL 25 mg daily. -Hold home Amloidipine 10 mg daily and Metoprolol succinate XL 25 mg daily -Metoprolol tartrate 12.5 mg BID Assessment & Plan (07/28/2023 3:14 AM EDT): Home Medications: Amlodipine 10 mg daily, Metoprolol succinate XL 25 mg daily. Patient has a history of hypertension. Vital signs stable on admission - BP 119/59. -Hold home amlodipine in the setting of sepsis. Restart when indicated. -Hold Metoprolol succinate XL 25 mg daily while in hospital. Transition to Metoprolol Tartrate 12.5 mg q 12 hours with holding parameters. -Monitor BP -Telemetry Hyperlipidemia 06/06/2023 Assessment & Plan (07/29/2023 3:34 PM EDT): Home Medications: Atorvastatin 80 mg daily -Continue home Atorvastatin 80 mg daily Assessment & Plan (07/28/2023 1:42 AM EDT): Home Medications: Atorvastatin 80 mg daily. -Continue home statin. Depression 06/06/2023 Assessment & Plan (07/29/2023 3:35 PM EDT): Home Medications: Sertraline 50 mg daily -Continue home Sertraline 50 mg daily Assessment & Plan (07/28/2023 1:42 AM EDT): Home Medications: Sertraline 50 mg daily. -Continue home Sertraline 50 mg daily. Ulcer of right leg, with fat layer exposed 06/05 Assessment & Plan (09/19/2023 2:22 PM EDT): Ms. Dong is a 78 y.o. female with a complex past medical and surgical history including CAD s/p CABG x3 with bioprosthetic aortic valve, carotid stenosis s/p L CEA, HTN, HLD, A Fib, DM2, Depression, CVA with expressive aphasia, and active smoking who had PAD and CLTI and therefore underwent bilateral femoral endarterectomy with placement of bilateral common iliac artery kissing stents and right common and external iliac BMS, as well as R femoral to below the knee popliteal bypass with contralateral GSV on June 28, 2023 with myself and a subsequent third toe amputation of the right lower extremity by Dr. Liu and podiatry. She now presents here for a wound check of her right medial calf wound from her previous GSV endoscopic vein harvest site for her CABG. since then the patient has responded very well after we did a clinic debridement 2 weeks ago and initiated Narda collagen. The patient reports that she fully absorbs the Narda collagen in her calf wound. Her dressing is currently being changed by VNA every other day. She also reports that her groin wound has significantly healed as well and there appears to be no areas of open wounds or sores. She continues to apply dry sterile dressing to this area. I have no concern and plan to see the patient back in clinic in 2 weeks with her vascular noninvasive studies. Until then she should continue her wound care dressing that was established during her last September 04 visit. Assessment & Plan (09/06/2023 3:44 PM EDT): Ms. Dong is a 78 y.o. female with a complex past medical and surgical history including CAD s/p CABG x3 with bioprosthetic aortic valve, carotid stenosis s/p L CEA, HTN, HLD, A Fib, DM2, Depression, CVA with expressive aphasia, and active smoking who had PAD and CLTI and therefore underwent bilateral femoral endarterectomy with placement of bilateral common iliac artery kissing stents and right common and external iliac BMS, as well as R femoral to below the knee popliteal bypass with contralateral GSV on June 28, 2023 with myself and a subsequent third toe amputation of the right lower extremity by Dr. Liu and podiatry. Overall the patient is doing very well and I am very pleased with her wound healing. Her groin wound is nearly completely healed with a small pinpoint area of opening in the inferior pole of the groin which we packed with Aquacel rope today. Her medial right leg wound from her previous GSV harvest site for her CABG has good healthy granulation tissue with good bleeding. After debridement today I applied Narda collagen. I plan to have the patient continue with Narda collagen therapy and follow-up with me in clinic in 2 to 3 weeks for further evaluation. She may wear Tubigrip for gentle compression if needed. Patient will also return back in 1 month with her vascular surveillance exams for her kissing iliac stents and right external iliac artery stents with a right common femoral artery to below-knee popliteal artery bypass. Assessment & Plan (07/30/2023 10:52 AM EDT): Patient has an ulcer on her right leg. She states this has been here for about a year. -WOCN following, appreciate recommendations Assessment & Plan (07/28/2023 2:26 AM EDT): Patient has an ulcer on her right leg. She states this has been here for about a year. -Wound care. Stroke 06/06/2023 Asymptomatic bilateral carotid artery stenosis 0 06/06/2023 History of left-sided carotid endarterectomy Atrial fibrillation 09/24/2022 Assessment & Plan (07/29/2023 3:29 PM EDT): Home Medications: Eliquis 5 mg BID, Metoprolol XL 25 mg daily. Patient has a history of paroxysmal afib. -Continue home Eliquis 5 mg BID -Metoprolol tartrate 12.5 mg BID -Hold home Metoprolol succinate XL 25 mg daily while inpatient Assessment & Plan (07/28/2023 3:15 AM EDT): Home Medications: Eliquis 5 mg BID, Metoprolol XL 25 mg daily. Patient has a history of paroxysmal afib. -Continue home Eliquis 5 mg BID. -Hold Metoprolol succinate XL 25 mg daily while in hospital. Transition to Metoprolol Tartrate 12.5 mg q 12 hours with holding parameters. Resolved Problems Problem Noted Date Diagnosed Date Resolved Date Smoker 06/06/2023 07/28/2023 Encounters Date Type Department Care Team Description 07/20/2024 3:30 PM EDT Follow-Up [facility] Vascular Surgery [address] [place] [address] Chuck Wagon Driver: Dia Sol NP Atherosclerosis of pit river artery of right lower extremity with rest pain (HCC) (Primary Dx); Asymptomatic bilateral carotid artery stenosis 07/20/2024 12:53 PM EDT - 07/20/2024 11:59 PM EDT Hospital Encounter [facility] Vascular Lab [address] [place] [address] Yenifer Schumacher MD Atherosclerosis of pit river artery of right lower extremity with rest pain (HCC) Discharge Disposition: Home or Self Care () 07/20/2024 12:53 PM EDT - 07/20/2024 11:59 PM EDT Hospital Encounter [facility] Vascular Lab [address] [place] [id number] Yenifer Schumacher MD Atherosclerosis of pit river artery of right lower extremity with rest pain (HCC) Discharge Disposition: Home or Self Care () 07/20/2024 12:52 PM EDT Hospital Encounter [facility] Vascular Lab [address] [place] [id number] Yenifer Schumacher MD Asymptomatic bilateral carotid artery stenosis Discharge Disposition: Home or Self Care () 04/23/2024 2:40 PM EST Follow-Up [facility] Vascular Surgery [address] [place] [id number] Chuck Wagon Driver: Yenifer Carpenter MD Asymptomatic bilateral carotid artery stenosis (Primary Dx); Atherosclerosis of pit [place] artery of right lower extremity with rest pain; Atherosclerosis of artery of extremity with ulceration 04/23/2024 12:36 PM EST - 04/23/2024 11:59 PM EST Hospital Encounter [facility] Vascular Lab [address] [place] [id number] Bypass graft stenosis, initial encounter Discharge Disposition: Home or Self Care (01) 04/23/2024 12:35 PM EST Hospital Encounter [facility] Vascular Lab [address] [place] [address] Bypass graft stenosis, initial encounter Discharge Disposition: Home or Self Care (01) from Last 3 Months Immunizations Immunization Administration Dates Next Due Tuberculin Skin Test; Unspecified Formulation Family History Medical History Relation Name Comments Diabetes Father Heart disease Father Diabetes Mother Heart disease Mother Relation Name Status Comments Daughter Debbie Father Mother Son Yonas Social History Tobacco Use Types Packs/Day Years Used Date Smoking Tobacco: Every Day Cigarettes 0.5 66.3 Started: 1956 Passive Smoke Exposure: Past Smokeless Tobacco: Never Tobacco Cessation:Ready to Q uit: Not Asked; Counseling Given: Not Answered Comments:7-8 cigarettes DAILY Alcohol Use Standard Drinks/Week Comments Not Currently 0 (1 standard drink = 0.6 oz pur e alcohol) wine on holidays Comments No Sex and Gender Information Value Date Recorded Sex Assigned at Female 06/26/2023 6:56 AM EDT Legal Sex Female 9:56 AM EST Gender Identity Female 06/26/2023 6:56 AM EDT Sexual Orientation Not on file Last Filed Vital Signs Vital Sign Reading Time Taken Comments Blood Pressure 141/81 07/20/2024 3:26 PM EDT Pulse 63 07/20/2024 3:09 PM EDT Temperature 36.7 ??C (98.1 ??F) 07/20/2024 3:09 PM ED T Respiratory Rate 18 07/20/2024 3:09 PM EDT Oxygen Saturation 97% 07/20/2024 3:09 PM EDT Inhaled Oxygen Concentration - - Weight 78.9 kg (174 lb) 07/20/2024 3:09 PM EDT Height 160 cm (5' 3 ) 07/20/2024 3:09 PM EDT Body Mass Index 30.82 07/20/2024 3:09 PM EDT Plan of Treatment Upcoming Encounters Date Type Department Care Team (Late st Contact Info) Description 12/28/2024 1:45 PM EDT Appointment [facility] Vascular Lab [address] [place] [address] 12/28/2024 2:30 PM EDT Appointment [facility] [address] [place] [address] 12/28/2024 3:30 PM EDT Follow-Up [facility] Vascular Surgery [address] [place] [address] Chuck Wagon Driver: Dia Sol NP [address] [place] [address] Health Maintenance Due Date Last Done Comments Medicare AWV 1946 Ophthalmology Exam 1957 Pneumococcal Vaccine: 50+ Years (1 of 2 - PCV) 1966 DTaP,Tdap,and Td Vaccines (1 - Tdap) 1969 CT Lung Cancer Screening (Baseline) 1997 Osteoporosis Screening 1997 Zoster Vaccines (1 of 2) 1997 RSV Vaccine (60+ years old and patients) (1 - 1-dose 75+ series) 2022 COVID-19 Vaccine ( - season) 2023 Alcohol/Substance Use Screening 03/25/2024 Depression Screening and Follow-Up 03/25/2024 Health Care Proxy Review 03/25/2024 Social Drivers of Health Annual Screening 03/25/2024 Hemoglobin A1C 10/22/2024 04/24/2024, 0808/2023, 07/26/2023, Additional history exists Influenza Vaccine (Season Ended) 2024 Basic Metabolic Panel 04/24/2025 04/24/2024 , 11/18/2023, 07/31/2023, Additional history exists Urine Microalbumin 04/24/2025 04/24/2024, 03/14/2023 Hepatitis C Screening Completed 03/14/2023 Hepatitis B Vaccines Aged Out No long er eligible based on patient's age to complete this topic Medical Devices Implanted Type Area Supervisor Bakery Sanitation Device Identifier Shelf Expiration Date Model / Serial / Lot Patch Carotid Peripatch [id number] Xenosure - [id number] Implanted:Qty: 1 on 06/28/2023 by Yenifer Scuhmacher MD at [facility] Implant Right: Leg [facility] VASCULAR 01/19/2029 E0.8P8 / / [id number] Description:Rinsed with ster ile normal saline. Lot # [id number], exp Patch Carotid Peripatch [id number] Xenosure - [id number] Implanted:Qty: 1 on 06/28/2023 by Yenifer Schumacher MD at [facility] Implant Left: Leg [facility] VASCULAR 01/19/2029 E0.8P8 / / [id number] Description:Rinsed with ster ile normal saline. Lot # [id number], exp Stent Icast Covered [id number] - [id number] - [id number] Implanted:Qty: 1 on 06/28/2023 by Yenifer Schumacher MD at [facility] Stent Left: Iliac Crest [employer]OFEM 01/12/2026 [id number] / [id number] / Stent Covered [id number] Icast - [id number] - [id number] Implanted:Qty: 1 on 06/28/2023 by Yenifer Schumacher MD at [facility] Stent Right: Iliac Crest [employer] 10/31/2025 [id number] / [id number] / System Stent Vascular Self Expanding [id number] Innova - [id number] Implanted:Qty: 1 on 06/28/2023 by Yenifer Schumacher MD at [facility] Stent Right: Iliac Crest iconDial 11/08/2027 [id number] / / [id number] System Stent Vascular Self Expanding [id number] Innova - [id number] Implanted:Qty: 1 on 06/28/2023 by Yenifer Schumacher MD at [facility] Stent Right: Iliac Crest [employer] 03/03/2028 [id number] / / [id number] Procedures * Due to [place] state law, this organization might not be sharing negative HIV tests. Procedure Name Priority Date/Time Associated Diagnosis Comments LOWER LIMB ARTERIAL DUPLEX: GRAFT RIGHT Routine 04/23/2024 2:01 PM EST Bypass graft stenosis, initial encounter ANKLE/BRACHIAL INDEX AND ARTERIAL WAVEFORM ANALYSIS Routine 04/23/2024 2:00 PM EST Bypass graft stenosis, initial encounter RENAL FUNCTION PANEL Routine 07/31/2023 4:09 AM EDT HEMOGLOBIN A1C Routine 06/29/2023 6:57 AM EDT from Last 3 Months or Most Recently Relevant to Health Maintenance Results * Due to [place] state law, this organization might not be sharing negative HIV tests. * LOWER LIMB ARTERIAL DUPLEX: GRAFT RIGHT (04/23/2024 2:01 PM EST) PSV Posterior Tibial Proximal Arterial Right 128 cm/s EDV Posterior Tibial Proximal Arterial Right 0 cm/s PSV Peroneal Proximal Arterial Right 109 cm/s EDV Peroneal Proximal Arterial Right 0 cm/s PSV Right Graft Proximal Thigh 97.4 cm/s EDV Right Graft Proximal Thigh 0 cm/s PSV Lower Extremity Distal Anastomosis Graft Right 248 cm/s EDV Lower Extremity Distal Anastomosis Graft Right 0 cm/s PSV Lower Extremity Proximal Anastomosis Graft Right 133 cm/s PSV Right Graft Knee 145 cm/s EDV Right Graft Knee 11 cm/s PSV Right Graft Middle Thigh 113 cm/s EDV Right Graft Middle Thigh 7.71 cm/s PSV Common Femoral Distal Arterial Right 169 cm/s EDV Common Femoral Distal Arterial Right 0 cm/s PSV Tib/Per Trunk Arterial Right 148 cm/s EDV Tib/Per Trunk Arterial Right 0 cm/s PSV Common Femoral Proximal Arterial Right 176 cm/s EDV Common Femoral Proximal Arterial Right 1.1 cm/s PSV Right Graft Distal Thigh 123 cm/s EDV Right Graft Distal Thigh 12.6 cm/s EDV Lower Extremity Proximal Anastomosis Graft Right 0.00 cm/s Anatomical Region Laterality Modality Lower Extremities Ultrasound Narrative 04/27/2024 3:28 PM EST ?A duplex ultrasound evaluation was performed of the right lower extremity distal common femoral artery - tibioperoneal trunk bypass graft. ?Flow was demonstrated throughout the right lower extremity distal common femoral artery - tibioperoneal trunk bypass graft without evidence of hemodynamically significant stenosis. When compared to the preoperative study dated 02/10/2024, the previously seen >75% stenosis at the distal graft anastamosis is no longer seen. 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) and POBA to graft stenosis (02/2024) us Dia Gibbons NP CV VASCULAR PROCEDURES Final Result * Ankle/Brachial Index and Arterial Waveform Analysis (04/23/2024 2:00 PM EST) Pressure Brachial Right 140 mmHg Pressure Posterior Tibial Arterial Right 104 mmHg Index Posterior Tibial Arterial Right 0.74 Pressure Dorsalis Pedis Arterial Right 113 mmHg Index Dorsalis Pedis Arterial Right 0.81 Pressure Toe 1 Right 44 mmHg Index Toe 1 Right 0.31 Pressure Brachial Left 131 mmHg Pressure Posterior Tibial Arterial Left 65 mmHg Index Posterior Tibial Arterial Left 0.46 Pressure Dorsalis Pedis Arterial Left 59 mmHg Index Dorsalis Pedis Arterial Left 0.42 Pressure 1 Toe Left 10 mmHg Index Toe 1 Left 0.07 Pressure Brachial all 140.00 mmHg Anatomical Region Laterality Modality Vascular Ultrasound Narrative 04/27/2024 3:27 PM EST ?The right ankle/brachial index and abnormal Doppler waveforms indicated mild arterial insufficiency at rest. ?The right toe/brachial index and absolute toe pressure were consistent with peripheral arterial disease when correlated with relevant clinical symptoms. ?The left ankle/brachial index and abnormal Doppler waveforms indicated severe arterial insufficiency at rest. ?The left toe/brachial index and absolute toe pressure were consistent with severe peripheral arterial disease when correlated with relevant clinical symptoms. When compared to the study dated 02/10/2024, the right ankle/brachial index has increased from 0.79 to 0.81. The right toe pressure has decreased from 76 mmHg (TBI 0.51) to 44 mmHg (TBI 0.31). The left ankle/brachial index has increased from 0.42 to 0.46. The left toe pressure has decreased from 22 mmHg (TBI 0.15) to 10 mmHg (TBI 0.07). 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 PRODUCER- tibioperoneal trunk BPG (06/2023) and POBA to graft stenosis (02/2024) Dia Gibbons NP CV VASCULAR PROCEDURES Final Result * (ABNORMAL) Renal function panel (07/31/2023 4:09 AM EDT) NA 142 135 - 145 mmol/L 07/31/2023 5:10 AM EDT [facility] K 3.9 3.5 - 5.3 mmol/L 07/31/2023 5:10 AM EDT [facility] Cl 108 97 - 110 mmol/L 07/31/2023 5:10 AM EDT [facility] CO2 26 24 - 32 mmol/L 07/31/2023 5:10 AM EDT [facility] Anion Gap 8 5 - 15 07/31/2023 5:10 AM EDT [facility] Glucose 121(H) 70 - 99 mg/dL 07/31/2023 5:10 AM EDT [facility] BUN 10 7 - 23 mg/dL 07/31/2023 5:10 AM EDT [facility] Creatinine 0.81 0.50 - 1.20 mg/dL 07/31/2023 5:10 AM EDT [facility] Calcium 9.1 8.7 - 10.7 mg/dL 07/31/2023 5:10 AM EDT [facility] Phosphorus 3.2 2.5 - 4.5 mg/dL 07/31/2023 5:10 AM EDT [facility] Albumin 3.1(L) 3.5 - 4.8 g/dL 07/31/2023 5:10 AM EDT [facility] eGFR 75 >=60 mL/min/1. 73m2 07/31/2023 5:10 AM EDT [facility] Comment:The estimated glomer ular filtration rate (eGFR) is calculated using a new formula developed by the NKF-ASN task force to eliminate race-based correction factors. The new formula uses serum/plasma creatinine, age, and gender to determine eGFR. A value below 60mls/min might indicate kidney disease and will be flagged. For additional information, see Glen et al, Am J Kidney Dis. 2021;79(2):268- 288, A Unifying Approach for GFR estimation: Recommendations of the NKF-ASN Task Force on Reassessing the Inclusion of Race in Diagnosing Kidney Disease . Blood Structure of peripheral vein / Unknown Venipuncture / Unknown 07/31/2023 4:09 AM EDT 07/31/2023 4:34 AM EDT us David Tamayo MD LAB BLOOD ORDERABLES Final Resul t [facility] [address] [place] [address], [place] from Last 3 Months or Most Recently Relevant to Health Maintenance Insurance MEDICARE [facility] [place] BCBS MCR SUPP Advance Directives * Full Code (Latest Code Status on File) Date Activated Date Inactivated Comments 03/11/2024 10:12 AM 03/11/2024 7:08 PM * Full Code Date Activated Date Inactivated Comments 03/11/2024 8:29 AM 03/11/2024 10:12 AM * Full Code Date Activated Date Inactivated Comments 03/04/2024 2:26 PM 03/04/2024 8:51 PM * Full Code Date Activated Date Inactivated Comments 07/28/2023 12:20 AM 07/31/2023 3:50 PM * Full Code Date Activated Date Inactivated Comments 07/01/2023 2:59 PM 07/05/2023 7:04 PM Healthcare Agents on File Name Relationship Healthcare Agent Relationship Communication Debbie Coyne Daughter Alternate Health Care Agent Yonas Dong Son Health Care Agent Care Teams Drill Runner Helper Relationship Specialty Start Date End Date Prakash Graham [facility] Internal Medicine [address] [place] [address] PCP - General Internal Medicine 05/30/23
--- OUTSIDE RECORDS SUMMARY | 2024-07-21 14:17 | XMS_ITS | Referral Summary ---
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) (Primary Dx); Asymptomatic bilateral carotid artery stenosis 07/20/2024 12:53 PM EDT - 07/20/2024 11:59 PM EDT Hospital Encounter [facility] [address] [place] [id number] Yenifer Schumacher MD 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 (HCC) Discharge Disposition: Home or Self Care () 07/20/2024 12:53 PM EDT - 07/20/2024 11:59 PM EDT Hospital Encounter [facility] [address] [place] [address] Yenifer Schumacher MD 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 (HCC) Discharge Disposition: Home or Self Care () 07/20/2024 12:52 PM EDT Hospital Encounter [facility] [address] [place] [address] Yenifer Schumacher MD Asymptomatic bilateral carotid artery stenosis Discharge Disposition: Home or Self Care () 04/23/2024 2:40 PM EST Follow-Up [facility] Building Vascular Surgery [address] [place] [address] Results Technician: Yenifer Carpenter MD Asymptomatic bilateral carotid artery stenosis (Primary Dx); 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; Atherosclerosis of artery of extremity with ulceration 04/23/2024 12:36 PM EST - 04/23/2024 11:59 PM EST Hospital Encounter [facility] Vascular Lab [address] [place] [address] Bypass graft stenosis, initial encounter Discharge Disposition: Home or Self Care () 04/23/2024 12:35 PM EST Hospital Encounter [facility] [address] [place] [address] Bypass graft stenosis, initial encounter Discharge Disposition: Home or Self Care () from Last 3 Months Allergies Active Allergy Reactions Criticality Noted Date [...] 90 tablet 4 12:15 PM EDT 07/05/19 24 025 Discontinued (Therapy Completed or No Longer Needed) Active Problems Problem Noted Date Diagnosed Date Atherosclerosis of nak[place] ar anjelica of right lower extremity with rest pain 07/20/2024 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 It does not appear she every followed up with the [employer] crew boss. CXR at outside hospital showed bibasilar atelectasis, [...] and a message was left with her [employer] crew boss for follow- up. It does not appear she every followed up with the [employer] crew boss. CXR at outside hospital showed bibasilar atelectasis [...] if indicated. -Monitor I&Os. -Daily Weights -Outpatient [employer] boss follow up. History of amputation of toe [...] bypass and aortic valve replacement. Followed by [employer] boss Dr. Stone. -Continue home Atorvastatin 80 mg [...] was also the plan to transition to [facility] for right lower extremity prior vein harvest incision at follow-up. Vascular follow up was suppose to be 07/31. Vascular was consulted by ER, and Vas doesn't believe post op site infection. They [...] Diagnosed Date Resolved Date Smoker 06/06/2023 07/28/2023 Immunizations Immunization Administration Dates Next Due Tuberculin Skin Test; Unspecified Formulation Social History Tobacco Use Types Packs/Day Years [...] Info) Description 12/28/2024 1:45 PM EDT Appointment [facility] [address] [place] [address] 12/28/2024 2:30 PM EDT Appointment [facility] [address] [place] [address] 12/28/2024 3:30 PM EDT Follow-Up [facility] Vascular Surgery [address] [place] [address] Results Technician: Dia Sol NP [address] [place], [place] [id number] Medical Devices Implanted Type Area Marketing Operations Consultant Device Identifier Shelf Expiration Date Model / Serial / Lot Patch Carotid Peripatch [id number] Xenosure - [id number] Implanted:Qty: 1 on 06/28/2023 by Yenifer Schumacher MD at [facility] Implant Right: Leg [facility] VASCULAR 01/19/2029 E0.8P8 / / [id number] Description:Rinsed with ster ile normal saline. Lot # [id number], exp Patch Carotid Peripatch [id number] Xenosure - [id number] Implanted:Qty: 1 on 06/28/2023 by Yenifer Schumacher MD at [facility] Implant Left: Leg [facility] VASCULAR 01/19/2029 E0.8P8 / / [id number] Description:Rinsed with ster ile normal saline. Lot # [id number], exp Stent Icast Covered [id number] - [id number] - [id number] Implanted:Qty: 1 on 06/28/2023 by Yenifer Schumacher MD at [facility] Stent Left: Iliac Crest [employer] 01/12/2026 [id number] / [id number] / Stent Covered [id number] Icast - [id number] - [id number] Implanted:Qty: 1 on 06/28/2023 by Yenifer Schumacher MD at [facility] Stent Right: Iliac Crest [employer] 10/31/2025 [id number] / [id number] / System Stent Vascular Self Expanding [id number] Innova - [id number] Implanted:Qty: 1 on 06/28/2023 by Yenifer Schumacher MD at [facility] Stent Right: Iliac Crest [employer] 11/08/2027 [id number] / / [id number] System Stent Vascular Self Expanding [id number] - [id number] Implanted:Qty: 1 on 06/28/2023 by Yenifer Schumacher MD at [facility] Stent Right: Iliac Crest [employer] 03/03/2028 [id number] / / [id number] Procedures * Due to [place] [employer] law, this organization might not be sharing [...] to Health Maintenance Results * Due to [place] [employer] law, this organization might not be sharing [...] Tibioperoneal Trunk Tech Comments 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/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) and POBA to graft [...] by TBI: severe Tech Comments S/o 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 COOK- tibioperoneal trunk BPG (06/2023) and POBA to graft stenosis (02/2024) Dia Gibbons NP CV VASCULAR PROCEDURES Final Result * (ABNORMAL) Renal function panel (07/31/2023 4:09 AM EDT) NA 142 135 - 145 mmol/L 07/31/2023 5:10 AM EDT [facility] K 3.9 3.5 - 5.3 mmol/L 07/31/2023 5:10 AM EDT [facility] Cl 108 97 - 110 mmol/L 07/31/2023 5:10 AM EDT [facility] CO2 26 24 - 32 mmol/L 07/31/2023 5:10 AM EDT [facility] Anion Gap 8 5 - 15 07/31/2023 5:10 AM EDT [facility] Glucose 121(H) 70 - 99 mg/dL 07/31/2023 5:10 AM EDT [facility] BUN 10 7 - 23 mg/dL 07/31/2023 5:10 AM EDT [facility] Creatinine 0.81 0.50 - 1.20 mg/dL 07/31/2023 5:10 AM EDT [facility] Calcium 9.1 8.7 - 10.7 mg/dL 07/31/2023 5:10 AM EDT [facility] Phosphorus 3.2 2.5 - 4.5 mg/dL 07/31/2023 5:10 AM EDT [facility] Albumin 3.1(L) 3.5 - 4.8 g/dL 07/31/2023 5:10 AM EDT [facility] eGFR 75 >=60 mL/min/1. 73m2 07/31/2023 5:10 AM EDT [facility] Comment:The estimated glomer ular filtration rate (eGFR) is calculated using a new formula developed by the NKF-ASN task force to eliminate race-based correction factors. The new formula uses serum/plasma creatinine, age, and gender to determine eGFR. A value below 60mls/min might indicate kidney disease and will be flagged. For additional information, see Carroll et al, Am J Kidney Dis. 2021;79(2):268- 288, A Unifying Approach for GFR estimation: Recommendations of the NKF-ASN Task Force on Reassessing the Inclusion of Race in Diagnosing Kidney Disease . Blood Structure of peripheral vein / Unknown Venipuncture / Unknown 07/31/2023 4:09 AM EDT 07/31/2023 4:34 AM EDT us David Tamayo MD LAB BLOOD ORDERABLES Final Resul t [facility] [address] [place] [address], from Last 3 Months or Most Recently Relevant to Health Maintenance Insurance MEDICARE [facility]/FREE CARE [facility] Advance Directives * Full Code (Latest Code [...] Dong Son Health Care Agent Care Teams Contracting Executive Relationship Specialty Start Date End Date Prakash Graham [facility] [place] [facility] [address] [place] [id number] PCP - General Internal Medicine 05/30/23
--- OUTSIDE RECORDS SUMMARY | 2024-07-21 14:17 | XMS_ITS ---
Author Organization [facility] Address [address] [place] [address] Care Team Providers Care Pillowcase Turner Name Role Phone Prakash Graham MD Primary Care Provider Radha Broderick [phone] REASON FOR VISIT Vascular Encounters Encounter Location Date Provider Diagnosis [address] [address] 04/07/2024 Radha Dover Plan Of Treatment Next Appt Details Provider Name:Radha fairbanks, 11/10/2024 09:00:00 AM, [address] [place] [address], [phone], Progress Notes * Dia BERNARD EDOB:1945 (78 yo F)Acc No.[id number]:04/07/2024 Patient:?Dia BERNARD :1945???Age:78 Y???Sex:Female Address:[address] [place] [address] * true * Date:? Generated for Printi lupis/Donato/eTransmitting on:?07/21/2024 02:16 PM EDT
--- OUTSIDE RECORDS SUMMARY | 2024-07-21 14:17 | XMS_ITS | Encounter Summary ---
Author Organization [facility] Address [address] [place] [address] Care Team Providers Care Paperhanger Name Role Phone Prakash Graham Primary Care Provider [phone] Reason for Visit * Consultation (Routine) - Pending Review Specialty Diagnoses / Procedures Referred By Contsierra t Referred To Contact Vascular Surgery Diagnoses Return in about 3 months (around 07/22/2024) for Next follow up with Dr. 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 * Ankle-Brachial Index and Pulse-Volume Recordings ([place]serratian) * Carotid ultrasound ([place]) documented in this encounter Progress Notes * Dia Gibbons NP - 07/20/2024 3:31 PM EDT Subsequent vascular surgery visit Note 07/20/2024 DIA BERNARD [id number] Attending::Yenifer Schumacher MD Subjective Chief Complaint: Surveillance visit with vascular lab studies History of present illness: Dia Bernard is a 79-year-old woman who has been a patient of Dr. Yenifer Schumacher's. She had a right VULNERABILITY RESEARCHER to tibioperoneal trunk bypass graft in 07/13/2023 and angiogram with POBA of graft stenosis in 03/13/2024. She was seen by us for management of a right lower extremitywound that was not healing. Today she states that she is doing great. She has no issues with walking and has no leg or foot pain. All of her wounds are healed. She has no wounds on her leg or feet and denies rest pain. Regarding carotid symptoms patient denies any loss of vision in either eye consistent with amaurosis fugax. She has no difficulty with speech. She denies any unilateral weakness. She has had no interval health changes. She is scheduled to see her supervisor carbon paper coating this week. She has no health concerns at this time. Cardioprotective medications include apixaban, atorvastatin. PMHx: Carotid stenosis status post left CEA, CAD status post CABG 09/11/2022, aortic stenosis statuspost AVR, HLD, HTN, stroke, DM type II, right leg atherosclerosis with ulceration underwent bilateral FEA, bilateral ISLVER stent, right SILVER/EIA BMS, right Fem-BK pop bypass with contra GSV 06/2023, angiogram with POBA 02/2024 Past Medical History: Diagnosis Date Anemia Aortic stenosis 08/2022 s/p AVR 19 mm Inspiris valve at [facility] Arthritis Atrial fibrillation (HCC) Carotid stenosis 03/14/2020 s/p left CEA Coronary artery disease s/p CABG in August 2022 at [facility] Depression Hyperlipidemia Hypertension Kidney stone PAD (peripheral artery disease) (HCC) Renal cyst bilateral- followed by urology Stroke ([facility]) residual expressive aphasia at times Tobacco abuse Type 2 diabetes mellitus (HCC) 02/28/23 HA1C 7.3%. does not check regularly Past Surgical History: Procedure Laterality Date CARDIAC CATHETERIZATION CARDIAC SURGERY 08/2022 CABG x3 & AVR CAROTID ENDARTERECTOMY Left CYSTOSCOPY W/ LASER LITHOTRIPSY INVASIVE VASCULAR PROCEDURE Right 03/11/2024 Procedure: Peripheral Angiogram with possible use of Moderate Sedation; Surgeon: Yenifer Schumacher MD; Location: [facility] Int Lab; Service: Invasive Vascular INVASIVE VASCULAR PROCEDURE Right 03/11/2024 Procedure: Peripheral Vascular Intervention (Possible); Surgeon: Yenifer Schumacher MD; Location: [facility] Int Lab; Service: Invasive Vascular VT AMPUTATION TOE,MT-P JT Right 07/01/2023 Procedure: AMPUTATION, TOE AND JOINT, METATARSOPHALANGEAL; Surgeon: Yonas Liu DPM; Location:[facility] OR; Service: Podiatry VT REVSC OPN/PRQ ILIAC ART W/STNT & ANGIOP IPSILATL Bilateral 06/28/2023 Procedure: PERCUTANEOUS ENDOVASCULAR REVASCULARIZATION OF ILIAC ARTERY WITH TRANSLUMINAL STENT PLACEMENT; Surgeon: Yenifer Schumacher MD; Location: [facility] OR; Service: Vascular VT THROMBOENDARTECTMY FEMORAL COMMON Bilateral 06/28/2023 Procedure: COMMON FEMORAL ENDARTERECTOMY; Surgeon: Yenifer Schumacher MD; Location: [facility] OR; Service: Vascular VT THROMBOENDARTECTMY FEMORAL DEEP Bilateral 06/28/2023 Procedure: DEEP FEMORAL ENDARTERECTOMY; Surgeon: Yenifer Schumacher MD; Location: [facility] OR; Service: Vascular VT VEIN BYPASS GRAFT,FEM-POP Right 06/28/2023 Procedure: FEMORAL-POPLITEAL ARTERY BYPASS GRAFT USING VEIN; Surgeon: Yenifer Schumacher MD; Location: [facility] OR; Service: Vascular TONSILECTOMY WOUND DEBRIDEMENT sternal wound x2 Current Outpatient Medications on File Prior to Visit Medication Sig Dispense Refill acetaminophen (TYLENOL) 325 mg tablet Take 2 tablets (650 mg total) by mouth every 4 hours as needed for pain. amLODIPine (NORVASC) 10 mg tablet Take 10 mg by mouth daily. ammonium lactate (AMLACTIN) 12 % cream 1 Application every 12 (twelve) hours. apixaban (ELIQUIS) 5 mg tablet Take 5 mg by mouth every 12 hours. ascorbic acid (VITAMIN C) 500 mg tablet Take 500 mg by mouth once a day. atorvastatin (LIPITOR) 80 mg tablet Take 80 mg by mouth nightly. cholecalciferol (VITAMIN D3) 1,000 unit tablet Take 1,000 Units by mouth once a day. [DISCONTINUED] clopidogreL (PLAVIX) 75 mg tablet Take 1 tablet (75 mg total) by mouth once a day. 90 tablet 0 docusate sodium 100 mg tablet Take 100 mg by mouth. empagliflozin (JARDIANCE) 10 mg Take 25 mg by mouth. ferrous sulfate 325 mg (65 mg iron) tablet Take 325 mg by mouth. folic acid 0.8 mg capsule Take 1 capsule by mouth daily. furosemide (LASIX) 40 mg tablet Take 1 tablet (40 mg total) by mouth once a day. 30 tablet 0 metoprolol succinate XL (TOPROL XL) 25 mg tablet Take 25 mg by mouth daily. multivitamin with iron-mineral tablet Take 1 capsule by mouth daily. sertraline (ZOLOFT) 50 mg tablet Take 50 mg by mouth daily. Pt takes half tab daily VITAMIN B COMPLEX ORAL Take 1 tablet by mouth daily. No current facility-administered medications on file prior to visit. Allergies Allergen Reactions Morphine Hallucinations Amoxicillin Hives Metformin Abdominal Pain, Diarrhea and Nausea And Vomiting Review of Systems Constitutional: Negative for chills and fever. Eyes: Negative for vision loss in left eye and vision loss in right eye. Cardiovascular: Negative for chest pain and claudication. Respiratory: Negative for shortness of breath. Skin: Negative for poor wound healing. Gastrointestinal: Negative for abdominal pain and change in bowel habit. Neurological: Negative for focal weakness. All other systems reviewed and are negative. Objective Vitals: 07/20/24 1526 BP: (!) 141/81 Pulse: Resp: Temp: SpO2: Physical Exam Vitals reviewed. Constitutional: Appearance: Normal appearance. HENT: Head: Normocephalic. Nose: Nose normal. Eyes: Extraocular Movements: Extraocular movements intact. Neck: Vascular: No carotid bruit. Cardiovascular: Rate and Rhythm: Normal rate. Pulses: Carotid pulses are 2+ on the right side and 2+ on the left side. Radial pulses are 2+ on the right side and 2+ on the left side. Femoral pulses are 2+ on the right side and 2+ on the left side. Dorsalis pedis pulses are 2+ on the right side and detected w/ Doppler on the left side. Posterior tibial pulses are 2+ on the right side and detected w/ Doppler on the left side. Pulmonary: Effort: Pulmonary effort is normal. Abdominal: General: Abdomen is flat. Palpations: Abdomen is soft. Musculoskeletal: General: Normal range of motion. Cervical back: Normal range of motion. No rigidity or tenderness. Right lower leg: No edema. Left lower leg: No edema. Skin: General: Skin is warm and dry. Findings: No wound. Comments: Right medial calf wound healed. Neurological: General: No focal deficit present. Mental Status: She is alert and oriented to person, place, and time. Psychiatric: Mood and Affect: Mood normal. Behavior: Behavior normal. Prior Imaging & Non-Invasive Testing:Hx of LCEA at [facility], A-fib, Hx of right VULNERABILITY RESEARCHER- Tibpero trunk BPG 06/2023 w/ POBA to graft stenosis 02/2024 I have personally reviewed the patient's vascular lab results. Carotid Duplex Scan When compared to the study dated 06/20/2023, there has been no significant change on the right. There has been progression of the stenotic lesion from 1-29% to 30-49% on the left. Lower Limb Arterial Duplex, Graft Right When compared to the study dated 04/23/2024, there has been no significant change. Flow was demonstrated throughout the right lower extremity distal common femoral artery - tibioperoneal trunk bypass graft without evidence of hemodynamically significant stenosis. ABIs When compared to the study dated 04/23/2024, the right ankle/brachial index has increased from mild 0.81 to normal 1.12. There has been no significant change in the right toe/brachial index. There hasbeen no significant change in the left ankle/brachial index. The left toe pressure appears to have increased from 10 mmHg (index 0.07) to 30 mmHg (index 0.21) however, PPG waveforms were difficult tointerpret. Right lower extremity normal, left lower extremity severe arterial insufficiency. Dia reports no symptomatic changes in her feet . Assessment & Plan Problem List Items Addressed This Visit Nervous Atherosclerosis 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 with rest pain (HCC) - Primary Relevant Orders Lower Limb Arterial Duplex, Graft Ankle/Brachial Index and Arterial Waveform Analysis Circulatory Asymptomatic bilateral carotid artery stenosis Relevant Orders Carotid Duplex Scan This is a 79 y.o. year old female with complex vascular history. She had a left carotid endarterectomy at an outside hospital. She is asymptomatic showing no vision change consistent with amaurosis fugax ,no unilateral weakness and no speech difficulties. Carotid duplex ultrasound demonstrates 30 to 49% stenosis bilaterally. We will repeat this study in 1 year. Signs and symptoms of TIA and/or stroke were reviewed with the patient. Regarding her right lower extremity bypass graft patient is asymptomatic and is quite pleased with the outcome. Her wounds are all healed and she is able to ambulate without any difficulties and has no life limiting activity issues. ABIs demonstrate normal blood flow on the right and severe arterial insufficiency on the left however this is unchanged from her previous visit. Her graft studies remain stable with patent flow with no areas of hemodynamic instability concerning for stenosis. Will repeat the studies in 6 months given her history of wounds and her severe arterial insufficiency on the left. Signs and symptoms of concern were reviewed with the patient and she was advised to call should she develop any concerning symptoms in her lower extremities even if the changes appear to be mild. I have seen and evaluated Dia Bernard and will be providing ongoing care and management for these medical conditions: PAD and asymptomatic carotid stenosis Follow up: Plan 1. Continue on Cardioprotective medications 2. Follow up in 6 months with repeat ABIs and lower limb arterial duplex, 1 year for carotid duplex 3. Continue to monitor for signs and symptoms of stroke, resting leg or foot pain, new leg or foot wounds, claudication symptoms and seek sooner evaluation. Signature: Dia Gibbons NP Electronic Signature Portions of this note were done utilizing voice recognition software and may contain inadvertent errors. documented in this encounter Plan of Treatment Upcoming Encounters Date Type Department Care Team (Late st Contact Info) Description 12/28/2024 1:45 PM EDT Appointment [facility] Vascular Lab [address] [place] [id number] 12/28/2024 2:30 PM EDT Appointment [facility] Vascular Lab [address] [place] [id number] 12/28/2024 3:30 PM EDT Follow-Up [facility] Vascular Surgery [address] [place] [id number] Painting Instructor: Dia Sol NP [address] [place] [address] Scheduled Orders Name Type Priority Associated Diagnoses Orde r Schedule Lower Limb Arterial Duplex, Graft Vascular Ultrasound Routine Atherosclerosis 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 with rest pain (HCC) Expected: 01/19/2025, Expires: 01/19/2026 Ankle/Brachial Index and Arterial Waveform Analysis Vascular Ultrasound Routine Atherosclerosis 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 with rest pain (HCC) Expected: 01/19/2025, Expires: 01/19/2026 Carotid Duplex Scan Vascular Ultrasound Routine Asymptomatic bilateral carotid artery stenosis Expected: 07/20/2025, Expires: 01/19/2026 documented as of this encounter Visit Diagnoses Diagnosis Atherosclerosis 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 with rest pain (HCC)- Primary Asymptomatic bilateral carotid artery stenosis documented in this encounter Care Teams Paperhanger Relationship Specialty Start Date End Date Prakash Graham [facility] Internal Medicine [address] [place] [id number] PCP - General Internal Medicine 05/30/23 documented as of this encounter
--- OUTSIDE RECORDS SUMMARY | 2024-07-21 14:17 | XMS_ITS | Encounter Summary ---
Author Organization [facility] Address [address] [place] [address] Care Team Providers Care Domestic Violence Counselor Name Role Phone Prakash Graham Primary Care Provider [phone] Encounter Details Date Type Department Care Team (Latest Contact Info) Description 07/20/2024 12:53 PM EDT - 07/20/2024 11:59 PM EDT Hospital Encounter [facility] Vascular Lab [address] [place] [address] Yenifer Schumacher MD [address] [place] [address] Atherosclerosis of [place]ary[place] artery of right lower extremity with rest pain (HCC) Discharge Disposition: Home or Self Care (01) Social History Tobacco Use Types Packs/Day Years [...] Take 1 capsule by mouth daily. 08/27/2022 metoprolol succinate XL (TOPROL XL) 25 mg [...] Info) Description 12/28/2024 1:45 PM EDT Appointment [facility] Vascular Lab [address] [place] [id number] 12/28/2024 2:30 PM EDT Appointment [facility] Vascular Lab [address] [place] [id number] 12/28/2024 3:30 PM EDT Follow-Up [facility] Vascular Surgery [address] [place] [address] [employer] Chocolate Dipper: Dia Sol NP [address] [place] [phone] Pending Results Name Type Priority Associated Diagnoses Date /Time Lower Limb Arterial Duplex, Graft Vascular Ultrasound Routine Atherosclerosis of [place] artery of right lower extremity with rest pain (HCC) 07/20/2024 2:34 PM EDT Scheduled Orders Name Type Priority Associated Diagnoses Order Schedule Lower Limb Arterial Duplex, Graft Vascular Ultrasound Routine Atherosclerosis of [place]ary[place] artery of right lower extremity with rest pain (HCC) Once for 1 Occurrences starting 07/20/2024 until 07/20/2024 documented as of this encounter Visit Diagnoses Diagnosis Atherosclerosis of [place] artery of right lower extremity with rest pain (HCC) documented in this encounter Care Teams Domestic Violence Counselor Relationship Specialty Start Date End Date Prakash Graham [facility] Internal Medicine [address] [place] [id number] PCP - General Internal Medicine 05/30/23 documented as of this encounter
--- OUTSIDE RECORDS SUMMARY | 2024-07-21 14:17 | XMS_ITS ---
Author Organization [facility] Address [address] [place] [address] Care Team Providers Care Hygiene Teacher Name Role Phone Prakash Graham MD Primary Care Provider Radha Broderick Unavailable [phone] Allergies Allergen (clinical drug ingredient) Drug/Non Drug Allergy documented on EMR Reaction Allergy Type Onset Date Status amoxicillin Amoxicillin hives Drug Allergy Act nanci metformin metFORMIN HCl nausea Drug Allergy Act nanci codeine Codeine Unknown Drug Allergy Active REASON FOR VISIT At Risk Footcare, Skin problem(s) Medications Medication SIG (Take, Route, Frequency, Duration) Notes Start Date End Date Status Doxycycline Monohydrate 100 MG 1 capsule Orally Twice a day for 10 days 04/22/2023 Not-Taking oxyCODONE HCl 5 MG Oral for 14 Days Not-Taking Gabapentin 300 MG Oral for 30 Days Not-Taking Ammonium Lactate 12 % 1 application Exte rnally to affected areas of dry skin to feet except for between the toes Twice a day for 30 days Active Santyl 250 UNIT/GM External for 30 Days Not-Taking Aspirin 81 MG 1 tablet Orally Once a day Not-Taking Ammonium Lactate 12 % 1 application Exte rnally Twice a day for 30 days Active Extra Depth Orthopedic Shoes, (1) Pair With (3) Pair Custom Heat Molded Multidensity Innersoles dx: niddm/pvd(e11.51), hammertoe foot deformity(m20.41,m20.42) , preulcerative skin lesion(s)(l85.1) Wear Daily; amputation right 3rd toe for 365 days 11/05/2023 Active metFORMIN HCl 500 MG TAKE 1 TABLET BY [facility] TWO TIMES A DAY Oral for 7 Days Not-Taking Clopidogrel Bisulfate 75 MG Oral for 90 Days Active Metoprolol Succinate 25 MG 1 capsule Orally Once a day Active Atorvastatin Calcium 80 MG 1 tablet Orally Once a day Active amLODIPine Besylate 10 MG 1 tablet Orally Once a day Active Sertraline HCl 50 MG 1 tablet Orally Onc e a day Active Furosemide 40 MG Oral for 30 Days Active eliquis 5 mg Active Folic Acid Active Multivitamin Active Plavix Active Vitamin C Active Jardiance Active Vitamin B Complex Ac tive Vitamin D3 Active Social History Tobacco Use: [...] Problem Status W/U Status Risk Notes Problem [id number] 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 Vital Signs Height 5ft 3in in 04/07/2024 Weight 172 lbs 04/07/2024 BMI 30.47 kg/m2 04/07/2024 Blood pressure systolic 122 mm Hg 04/07/19 25 Blood pressure diastolic 80 mm Hg 025 Encounters Encounter Location Date [facility] [address] [place] [address] 04/07/2024 Radha Dover Type 2 diabetes mellitus with diabetic peripheral angiopathy without gangrene E11.51 ; Xerosis of skin L85.3 ; 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 ; Tinea unguium B35.1 and Type 2 diabetes mellitus with polyneuropathy E11.42 Assessments Encounter Date Diagnosis (ICD Code) Assessment Notes Treatment Notes Treatment Clinical Notes Section Notes 04/07/2024 Type 2 diabetes mellitus with diabetic peripheral angiopathy without gangrene (ICD-10 - E11.51) 04/07/2024 Xerosis of skin (ICD-10 - L85.3) 04/07/2024 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 (ICD-10 - I70.263) 04/07/2024 Tinea unguium (ICD-10 - B35.1) 04/07/2024 Type 2 diabetes mellitus with polyneuropathy (ICD-10 - E11.42) Plan Of Treatment Medication Medication Name Sig Start Date Stop Date Notes Ammonium Lactate 12 % 1 application Exte rnally to affected areas of dry skin to feet except for between the toes Twice a day for 30 days Next Appt Details Follow Up: 2 Months, Reason: Provider Name:Radha fairbanks, 11/10/2024 09:00:00 AM, [address] [place] [address], [id number], Procedure Notes * Category Sub-Category Detail Notes [...] use of a nail nipper and/or dremel-type lens grinder apprentice, to a more viable healthy nail plate [...] to maintain effectiveness in symptomatic relief - 84805 Keratoma Treatment Parring or Cutting o f [...] stated and described in the exam ( TA, T5, T6 sub met head 1, 5 right, heels B/L), were pared, and/or cut utilizing a sterile 15 blade, tissue nippers, and/or power dremel instrumentation by the physician of record - 34180 Progress Notes * Dia BERNARD EDOB:1945 (78 yo F)Acc No.[id number]:04/07/2024 Progress Note Patient:?Dia BERNARD Provider:?Radha Dover DPM :1945???Age:78 Y???Sex:Female D ate:04/07/2024 Address:[address] [place], [place] [id number] Pcp:Prakash Graham MD Subjective: * Chief Complaints: * ???At Risk FootcareSkin prob richard(s) * HPI: ???At Risk footcare:?Pt States Last PCP Visit:?Date?12/23/2023 ???Skin problems:?Nature:?dryness , scaling.?Location:?B/L .?Duration:?a few months.?Course:?improved.?Treatments:?medication ( AM Lactin ).? * ROS:?General/Constitutional:?Nausea?denies.?Vomiting?denies.?Hunger Thirst?denies.?Loss appetite?denies.?Chills?denies.?Fatigue?denies.?Fever?denies.?Night Sweats?denies.?Unexplained weight loss?denies.?Unexplained weight gain?denies.?HEENTM:?Dentures?denies.?Dizziness?denies.?Glasses/contacts?admits.?Retinopathy?de nies.?Blurred/double vision?denies.?TMJ?denies.?Discharge/drainage?denies.?Implants?denies.?Sore throat?denies.?Dental implants?denies.?Hard of hearing ?denies.?Difficulty chewing/swallowing/speaking?denies.?Nose bleeds?denies.?Sore mouth?denies.?Respiratory:?On Oxygen?denies.?Pneumonia/pleurisy?denies.?Bronchitis?denies.?Emphysema?denies.?C oughing?denies.?Cough blood?denies.?Shortness of breath?denies.?Wheezing?denies.?Cardiovascular:?Pacemaker?denies.?MVP?denies.?WPW?denies.?CHF?denies.?Heart attack?denies.?Septal defect?denies.?Rapid beat?denies.?Chest pain ?denies.?Atrial Fib.?admits.?Murmur/Palpitations?denies.?Gastrointestinal:?Hemorrhoids?denies.?Stomach/Abdominal pain?denies.?Dark blood stool?denies.?Irritable bowel ?denies.?Constipation?denies.?Diarrhea?denies.?Hematology:?Swelling?denies.?Clots?denies.?Varicose Veins?denies.?Bruising?denies.?Bleeding problem?denies.?Genitourinary:?Blood urine?denies.?Frequent/Painfu/urination/bladder control?denies.?Kidney stones?admits.?Infection (UTI)?denies.?Nephropathy?admits.?sex trans dis (STD)?denies.?Prostate?denies.?Musculoskeletal:?Hammertoes?denies.?Bunions?denies.?Back Pain?denies.?Muscle Cramps/ Resting?denies.?Muscle cramps / walking?denies.?Generalized aches and pains?denies.?Weakness?denies.?Integ.:?Medrano?denies.?Scars?denies.?Corns/calluses?denies.?Ingrown nails?denies.?Painful nails?denies.?Open Sores?denies.?Rashes?denies.?Neurologic:?Difficulty sleeping?denies.?Brain disorder?denies.?Numbness?denies.?Balance trouble?denies.?Confusion?denies.?Fainting/blackouts?denies.?Tingling?denies.?Tr emors?denies.? * Medical History:? * Surgical History:?bypass mick brenna RLE 08/28/2022, arotid artery 03/2019amputation of 3rd toe right foot 2023Open Heart Surgery ngioplasty RLE 02/2024 * Hospitalization/Major Diagno stic Procedure:?[facility] - Sepsis - IV antibiotics 2023 * [...] than smoking?Are you an other tobacco user??No * Medications:?TakingJardiance Vitamin D3 Vitamin B Complex [...] 1 application Externally Twice a day Taking Jardiance Taking Vitamin [...] Cream 1 application Externally Twice a day Not-Taking/PRNmetFORMIN HCl 500 MG [...] * Examination: ???Ophthalmology Referral: ?DIABETES EYE EXAM?Procedure Performed:?No ?Eye Exam not performed:?No reason specified?Vascular: ?DP PULSES (B):? 0/4, B/L.?PT PULSES (B):? 0/4, B/L.?CAPILLARY FILL TIME:? delayed, all digits, B/L.?TROPHIC CONDITION-TEXTURE/ELASTICITY/TURGOR/HAIR GROWTH (B):?, fragile, thin, shiny skin , with sparse to absent hair growth , decreased, B/L.?TEMPERTURE GRADIENT (C):?, decreased, cool to cold, proximal to distal, B/L.?PIGMENTATION:?pale, B/L?.?EDEMA (C):?absent, B/L.?REST PAIN:? admits, right.?Dermatologic: ?SKIN FINDINGS:? Skin exam reveals Keratotic lesion(s) located at TA, T5, T6 sub met head 1, 5 right, heels B/L; Skin shows approximately 50 percent LESS, sign(s) of, dryness, scaling, in a [...] Exam performed:?Yes ?Visual exam of foot performed:?Yes ?Date?04/07/2024 ?Sensory testing performed:?sensations diminished ?Pedal pulse taking [...] groups in a symmetrical fashion, B/L.?DIGITAL DEFORMITIES:?Amputation T7.?FOOTWEAR:?worn, non-supportive, shoe gear properties exacerbate patients foot/toe deformity.? 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 Plan: * Treatment: * Procedures:?Debride Nail 6-10:?Nail [...] use of a nail nipper and/or dremel-type lens grinder apprentice, to a more viable healthy nail plate [...] to maintain effectiveness in symptomatic relief - 03314.?Keratoma Treatment:?Parring or Cutting of Benign Hyperkeratotic Lesion(s)?(-57) [...] stated and described in the exam ( TA, T5, T6?sub met head 1, 5 right, heels B/L), were pared, and/or cut utilizing a sterile 15 blade, tissue nippers, and/or power dremel instrumentation by the physician of record - 44868.? * Procedure Codes:?57054 DEBRI DE NAIL, 6 OR MORE, Modifiers: XS 01932 TRIM SKIN LESIONS, OVER 4, Modifiers: XS * Preventive Medicine:? ??Counseling:?Tobacco use:?Type of Tobacco Use Cessation Counseling provided?Smoking effects education ?Patient counseled on the dangers of smoking and urged to quit:?04/07/2024 ?Discussion:?-13: Office or other outpatient visit for the evaluation and management of an established patient, which required a medically appropriate history and/or examination and LOW level of DECISION MAKING for: 1 STABLE ACUTE UNCOMPLICATED PROBLEM, 2 OR MORE MINOR PROBLEMS, OR 1 STABLE CHRONIC PROBLEM, THAT POSE(S) A LOW RISK FOR MORBIDITY/MORTALITY. The visit on the day of the encounter encompassed interpreting the data and educating the patient as to the nature of their condition, treatment options available according to their individual PMH, meds, allergies, and overall health/living conditions, as well as any potential risks or complications that may occur from a failure to adhere to, and participate in, the recommended course of therapy. The discussion included a complete verbal, and/or written explanation of the examination results, any x-rays taken, the proposed diagnosis, and outline of the treatment plan. A schedule for future care needs was also explained. The patient verbalized an understanding of the instructions at this time and agreed to be an active participant in their treatment. If the patient should think of any questions or concerns after the visit, I have encouraged the patient to call the office.?Shoe Gear Counseling:?SHOE Rx - The patient was counseled in great detail on their muscoloskeletal foot and toe deformities which coincided with the dermatological presentations visualized on exam. We discussed how their deformities put the integrity of their feet at risk for potential pedal complications which makes the accomidative diabetic shoes and cutomizable inserts medically necessary. We discussed the different shoe and insert treatment types and options, as well as the important advantages for adhering to regularly wearing these accomidative devices daily. The patient was made aware of the fact that a failure to abide by these recommedations may be deleterious to their foot health as they are able to prevent many pedal complications such as skin irritation, skin ulceration, infection, and even loss of toe/foot/leg/or life. Time was also spent with the patient dispensing and discussing proper diabetic footcare techniques including daily skin moisturization, daily foot inspection for any interruption in skin integrity including open lesions, or sign of infection such as redness/malodor/drainage/swelling. Also discussed and recommended were procedures regarding daily shoe inspection for the presence of internal foreign bodies as well as any visualized irregular shoe or insert wear. Patient questions re: shoes, inserts, and self foot inspections were answered to their satisfaction as the patient verbally confirmed a full understanding of the above information. Advised pt to wear her Extra Depth Orthopedic Shoes with 3 pair of custom heat-molded inserts.?Xerosis:?The patient was counseled on the diagnosis, potential etiologies, and treatment options for their skin condition. We discussed the risks and benefits of each option from performing no treatment, to utilizing OTC topical skin creams/ointments, to utilizing prescription topical creams/ointments, to utilizing customized compounded topical medications and use of nocturnal occlusion with any/all previously detailed therapies. We discussed the advantages and disadvantages of each possible treatment and importance for adherence to all the recommended therapies for optimum success and avoid potential complications such as open sore/infection/possible hospitalization. We discussed the potential effectiveness of each topical preparation as well as each ones possible side effects and/or patient medication interactions. Patient questions re: use, dosage, successful outcomes, and application consistency were reviewed and the patient verbalized that all answers were clearly understood, The patient was counseled on the diagnosis, potential etiologies, and treatment options for their skin condition. We discussed the risks and benefits of each option from performing no treatment, to utilizing OTC topical skin creams/ointments, to utilizing prescription topical creams/ointments, to utilizing customized compounded topical medications and use of nocturnal occlusion with any/all previously detailed therapies. We discussed the advantages and disadvantages of each possible treatment and importance for adherence to all the recommended therapies for optimum success and avoid potential complications such as open sore/infection/possible hospitalization. We discussed the potential effectiveness of each topical preparation as well as each ones possible side effects and/or patient medication interactions. Patient questions re: use, dosage, successful outcomes, and application consistency were reviewed and the patient verbalized that all answers were clearly understood. The patient has decided to apply Rx skin creams to their feet save the interspaces while paying special attention to the heels. Such was sent to their pharmacy at the time of visit.? ??Screening/Special Tests:?Fall Risk?Assessment:?Performed ?Screening:?No falls in the past year ?FALLS: Screening for Future Fall Risk?Have you had two or more falls in the past year??No ?Have you had any falls with injury in the past year??No * Follow Up:?2 Months * Images: * Sign off status: Completed true * Provider:?Radha Dover DPM Date:? Generated for Lupe baugh/Donato/Tal on:?07/21/2024 02:17 PM EDT History and Physical Notes * [...] exam reveal s Keratotic lesion(s) located at TA, T5, T6 sub met head 1, 5 right, heels B/L; Skin shows approximately 50 percent LESS, sign(s) of, dryness, scaling, in a [...] Visual exam of foot performed:: Yes Date: 04/07/2024 Sensory testing performed:: sensations d iminished Pedal pulse taking performed:: absent ORIENTED: person, place, and t noemi Footwear Evaluation Footwear Evaluation performe d:: Yes Ophthalmology Referral DIABETES EYE EXAM Procedure Perform ed:: No Eye Exam not performed:: No reason speci fied Vascular DP PULSES (B): 0/4, B/L PT [...]
--- OUTSIDE RECORDS SUMMARY | 2024-07-21 14:17 | XMS_ITS | Encounter Summary ---
Author Organization [facility] Address [address] [place] [address] Care Team Providers Care Felled Seam Operator Chainstitch Name Role Phone Prakash Graham Primary Care Provider [phone] Encounter Details Date Type Department Care Team (Latest Contact Info) Description 07/20/2024 12:53 PM EDT - 07/20/2024 11:59 PM EDT Hospital Encounter [facility] [address] [place] [address] Yenifer Schumacher MD [address] [place] [address] Atherosclerosis of [place] artery of right lower extremity with rest [...] Info) Description 12/28/2024 1:45 PM EDT Appointment [facility] [address] [place] [id number] 12/28/2024 2:30 PM EDT Appointment [facility] [address] [place] [address] 12/28/2024 3:30 PM EDT Follow-Up [facility] Building Vascular Surgery [address] [place] [address] Sports Reporter: Dia Sol NP [address] [place] [phone] Pending Results Name Type Priority Associated Diagnoses Date /Time Ankle/Brachial Index and Arterial Waveform Analysis Vascular Ultrasound Routine Atherosclerosis of [place] artery of right lower extremity with rest pain (HCC) 07/20/2024 1:32 PM EDT Scheduled Orders Name Type Priority Associated Diagnoses Order Schedule Ankle/Brachial Index and Arterial Waveform Analysis Vascular Ultrasound Routine Atherosclerosis of [place] artery of right lower extremity with rest pain (HCC) Once for 1 Occurrences starting 07/20/2024 until 07/20/2024 documented as of this encounter Visit Diagnoses Diagnosis Atherosclerosis of [place] artery of right lower extremity with rest pain (HCC) documented in this encounter Care Teams Felled Seam Operator Chainstitch Relationship Specialty Start Date End Date Prakash Graham [facility] Internal Medicine [address] [place] [id number] PCP - General Internal Medicine 05/30/23 documented as of this encounter
== END 2024-07-21 12:50 | disposition home or self-care (01) ==
LOC: HO.HCS 12:18
PROVIDERS: PCP Internal Medicine; Visit Provider Internal Medicine
DX: I25.10 Atherosclerotic heart disease of native coronary artery without angina pectoris (principal); Z95.3 Presence of xenogenic heart valve; I25.5 Ischemic cardiomyopathy; I48.0 Paroxysmal atrial fibrillation; I44.7 Left bundle-branch block, unspecified; I63.232 Cerebral infarction due to unspecified occlusion or stenosis of left carotid arteries; I10 Essential (primary) hypertension; F17.200 Nicotine dependence, unspecified, uncomplicated
CPT/HCPCS: 93010; 99214; G2211

== ENCOUNTER → 2024-07-21 12:17 | Outpatient (BNVA) | payer MEDICARE, MEDICAID, SELFPAY | PROVIDERS: PCP Internal Medicine; Visit Provider Internal Medicine | DX: I25.10 Atherosclerotic heart disease of native coronary artery without angina pectoris (principal); I48.0 Paroxysmal atrial fibrillation; I44.7 Left bundle-branch block, unspecified; I10 Essential (primary) hypertension; I63.232 Cerebral infarction due to unspecified occlusion or stenosis of left carotid arteries; Z95.3 Presence of xenogenic heart valve; F17.210 Nicotine dependence, cigarettes, uncomplicated | CPT/HCPCS: 93005; 99212 ==